=== PATIENT | male | born 1945 | race Caucasian/White ===

== ENCOUNTER 2019-08-17 11:01 | Outpatient (CLI) | payer MEDICARE, OTHER, SELFPAY ==
[2019-08-17 11:26] VITALS: BP 125/67; PULSE 62; RESP 18; TEMP 36.4; O2SAT 99
[2019-08-17 12:00] VITALS: BP 121/62; PULSE 64; RESP 18; O2SAT 98
== END 2019-08-17 12:00 | disposition home or self-care (01) ==
LOC: INF 11:01
PROVIDERS: Visit Provider Internal Medicine Gastroenterology
DX: D50.9 Iron deficiency anemia, unspecified (principal); T45.4X5A Adverse effect of iron and its compounds, initial encounter
CPT/HCPCS: 96365; J1439

== ENCOUNTER 2019-08-24 10:55 | Outpatient (CLI) | payer MEDICARE, OTHER, SELFPAY ==
[2019-08-24 11:06] VITALS: BP 141/68; PULSE 63; RESP 18; O2SAT 98
[2019-08-24 12:00] VITALS: BP 137/70; PULSE 65; RESP 18; O2SAT 98
== END 2019-08-24 12:00 | disposition home or self-care (01) ==
LOC: INF 10:55
PROVIDERS: Visit Provider Internal Medicine Gastroenterology
DX: D50.9 Iron deficiency anemia, unspecified (principal); T45.4X5A Adverse effect of iron and its compounds, initial encounter
CPT/HCPCS: 96365; J1439

== ENCOUNTER → 2021-02-18 13:06 | Outpatient (POV) | payer MEDICARE, OTHER, SELFPAY | PROVIDERS: Visit Provider Nurse Practitioner Family | DX: Z00.00 Encounter for general adult medical examination without abnormal findings (principal) ==

== ENCOUNTER → 2021-06-07 11:32 | Outpatient (CLI) | payer MEDICARE, OTHER, SELFPAY | PROVIDERS: Visit Provider Internal Medicine Gastroenterology | DX: Z01.812 Encounter for preprocedural laboratory examination (principal); Z20.822 Contact with and (suspected) exposure to COVID-19; Z12.11 Encounter for screening for malignant neoplasm of colon | CPT/HCPCS: U0003 ==

== ENCOUNTER 2021-06-10 08:00 | Day surgery (SDC) | payer MEDICARE, OTHER, SELFPAY ==
[2021-06-05 10:02] VITALS: BMI 25.5
[2021-06-10 08:26] VITALS: BP 144/70; PULSE 62; RESP 16; TEMP 36.8; O2SAT 100
[2021-06-10 08:39] LABS: POC Glucose,Bedside 140 (70-110)
--- NOTE | 2021-06-10 08:50 | HMH.ANESCL ---
[facility] Anesthesia Checklist - Patient Identification Patient Identification: Arm Band - Structural Data Admitted From: Home Planned Operative Procedure/s: Push enteroscopy Consent for Planned Operative Procedure(s) Verified: Yes - NPO Status Verified Time NPO: 00:00 - Additional verifications Anesthesia Reactions: No - Airway Assessment C-Spine Mobility Assessed: Yes TMJ Mobility Assessed: Yes Dentition: Good Dentition - Neurological Assessment Level of Consciousness: Awake Hx Seizures: No Numbness or tingling in extremities: No - Anesthesia Plan Anesthesia Risk discussed: Yes Anesthesia Plan: Verified ASA Class: III Anesthesia Type: MAC [facility] History I have reviewed the patient's past medical history: Yes Medical History: Reports:: Atherosclerotic Heart Disease, Diabetes Mellitus Type 2, Gastroesophageal Reflux Disease(GERD), Hyperlipidemia, Hypertension, Peripheral Artery Disease, Peripheral Vascular Disease, Transient Ischemic Attacks (TIA) Denies:: Cancer, Diabetes Mellitus Type 1, Internal Pacemaker, Lung Disease, MRSA, Seizures *Have you ever received a pneumonia vaccine?: Yes *Have you received a flu vaccine this season?: Yes Other Medical History: Reports: Anemia, Hypothyroidism Anesthesia experience/problems:: None Other Surgeries: Yes: Colonoscopy, Colon Resection (diverticulitis), Coronary Stent. No: Pacemaker Amputation: No Fractures: No - *Social History Last grade of school completed: High school graduate Smoking Status: Current every day smoker Tobacco Type: cigarettes # Packs/Day (cigarettes): 1 Alcohol Intake: current Alcohol Intake Frequency:: holidays/special occasions only Substance Use Type: denies use *Occupational Status:: retired Housing: house Household Members: spouse *Travel in the last 8 weeks: None Family Hx:: No significant family history
--- NOTE | 2021-06-10 08:56 | P.PCN_ITS ---
[facility] Procedure Note Procedure Note:: Push enteroscopy procedure Report: Push Enteroscopy with APC ablation/coagulation Endoscopost: Kamar Castillo II, MD Referring Physician: Christiano May MD Date of Procedure: June 10, 2021 Equipment: Olympus PCF 190 pediatric colonoscope Sedation: MAC sedation Indications: Mr. Bansal is a 75-year-old gentleman with some chronic iron deficiency anemia. The patient is on anticoagulation with Plavix after his TIA in March 2020. He also takes aspirin. The patient has had ablation of prior angiodysplasias in August 2018. At that time, he did receive parenteral iron infusion. The patient recently has had recurrence of his iron deficiency anemia. He is Hemoccult negative. His lab work on May 13, 2021 revealed hemoglobin 9.5 and hematocrit 29.4 with MCV of 72. His ferritin level was 12 with iron saturation of 4% and serum iron of 21. His TIBC was 472. The patient reports no melena or hematochezia. He does have some chronic constipation despite using MiraLAX plus Konsyl daily to twice daily. Procedure: Prior to the procedure, a history and physical exam was performed, and patient's medications and allergies were reviewed. The risks, benefits and alternatives of the sedation and procedure were discussed with the patient. All questions were answered and informed consent was obtained. The patient was brought to the procedure room. Patient identification and proposed procedure were verified by the physician and the nurse. The patient was placed in a left lateral decubitus position and the scope was passed under direct vision. Throughout the procedure, the patient's blood pressure, pulse, and oxygen saturations were monitored continuously. The upper push enteroscopy was accomplished without difficulty. The patient tolerated the procedure well. Findings: The scope was passed directly into the upper esophagus and advanced to the proximal/mid jejunum. Upon withdrawal, there were 3 small angiodysplasias of the post bulbar duodenum and 3 additional angiodysplasias of the duodenal bulb. These were all coagulated/ablated using the argon plasma access control officer. The scope was then withdrawn through a normal pylorus into the stomach. There was some mild chronic gastritis. Upon retroflexion, there was a 3 cm hiatal hernia. There were no Zhou's erosions or ulcerations. The scope was then withdrawn into the esophagus. There was no evidence of reflux esophagitis, Martini's or varices. The remainder of the esophageal mucosa was normal. Impression: 1. 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 I do feel that this is directly related to his use of aspirin and Plavix as well. I will discuss the findings with the patient and family. I will also discuss treatment options for his chronic constipation.
[2021-06-10 09:18] VITALS: BP 89/53; PULSE 56; RESP 12; TEMP 36.3; O2SAT 93
[2021-06-10 09:28] VITALS: BP 103/57; PULSE 51; RESP 12; O2SAT 95
[2021-06-10 09:38] VITALS: BP 108/64; PULSE 58; RESP 16; O2SAT 97
[2021-06-10 09:48] VITALS: PULSE 56; RESP 16; TEMP 36.3; O2SAT 96
[2021-06-10 15:12] VITALS: O2SAT 97
== END 2021-06-10 09:53 | disposition home or self-care (01) ==
LOC: OUTP 08:03
PROVIDERS: Visit Provider Internal Medicine Gastroenterology
PROC: (CPT 44360; principal; 2021-06-10 09:00)
DX: K31.819 Angiodysplasia of stomach and duodenum without bleeding (principal); K44.9 Diaphragmatic hernia without obstruction or gangrene; D50.9 Iron deficiency anemia, unspecified; Z79.01 Long term (current) use of anticoagulants; Z79.82 Long term (current) use of aspirin; Z86.73 Personal history of transient ischemic attack (TIA), and cerebral infarction without residual deficits; I25.10 Atherosclerotic heart disease of native coronary artery without angina pectoris; E11.9 Type 2 diabetes mellitus without complications; K21.9 Gastro-esophageal reflux disease without esophagitis; E78.5 Hyperlipidemia, unspecified; I10 Essential (primary) hypertension; I73.9 Peripheral vascular disease, unspecified
CPT/HCPCS: 44369; 82962; C2618

== ENCOUNTER 2021-06-12 10:25 | Outpatient (CLI) | payer MEDICARE, OTHER, SELFPAY ==
[2021-06-12 10:55] VITALS: BP 130/62; PULSE 63; RESP 18
[2021-06-12 11:10] VITALS: BP 139/72; PULSE 61; RESP 16
== END 2021-06-12 11:20 | disposition home or self-care (01) ==
LOC: INF 10:32
PROVIDERS: Visit Provider Internal Medicine Gastroenterology
DX: D64.9 Anemia, unspecified (principal)
CPT/HCPCS: 96374; Q0138

== ENCOUNTER 2021-06-18 10:27 | Outpatient (CLI) | payer MEDICARE, OTHER, SELFPAY ==
[2021-06-18 10:35] VITALS: BP 135/70; PULSE 62; RESP 20; TEMP 36.9; O2SAT 95
[2021-06-18 11:15] VITALS: BP 140/74; PULSE 68; RESP 20; TEMP 36.9; O2SAT 95
== END 2021-06-18 11:20 | disposition home or self-care (01) ==
LOC: INF 10:27
PROVIDERS: Visit Provider Internal Medicine Gastroenterology
DX: D50.9 Iron deficiency anemia, unspecified (principal)
CPT/HCPCS: 96365; Q0138

== ENCOUNTER → 2022-02-07 14:06 | Outpatient (CLI) | payer MEDICARE, OTHER, SELFPAY ==
[2022-02-07 14:27] LABS: Basophils # 0.1 K/mm3 (0-0.2); Basophils % 0.7 % (0.1-2.0); Eosinophils # 0.4 K/mm3 (0.0-0.4); Eosinophils % 3.5 % (0.1-12.0); Hematocrit 40.2 % (42.0-52.0); Hemoglobin 13.3 g/dL (14.1-18.0); Lymphocytes # 3.4 K/mm3 (0.7-4.5); Lymphocytes % 31.7 % (10-50); Mean Corpuscular Hemoglobin 30.8 pg (27.0-31.2); Mean Corpuscular Volume 93.2 fl (80-94); Mean Platelet Volume 7.7 fl (7.4-10.4); Monocytes % 9.8 % (1.7-9.3); Neutrophils # 5.8 K/mm3 (1.8-7.8); Neutrophils % 54.5 % (37.0-80.0); Platelet Count 349 K/mm3 (142-424); Red Blood Count 4.32 M/mm3 (4.60-6.20); Red Cell Distribution Width 13.8 % (11.5-17.5); White Blood Count 10.6 K/mm3 (4.8-10.8)
[2022-02-07 14:53] LABS: Iron 94 ug/dL (49-181)
[2022-02-07 15:02] LABS: Total Iron Binding Capacity 420 ug/dL (261-462)
[2022-02-07 15:29] LABS: Ferritin 70.2 ng/ml (17.9-464)
== END ==
PROVIDERS: Visit Provider Nurse Practitioner Family
DX: D50.9 Iron deficiency anemia, unspecified (principal); K58.9 Irritable bowel syndrome, unspecified
CPT/HCPCS: 36415; 82728; 83540; 83550; 85025

== ENCOUNTER → 2022-08-06 13:51 | Outpatient (CLI) | payer MEDICARE, OTHER, SELFPAY ==
[2022-08-06 14:40] LABS: Basophils # 0.1 K/mm3 (0-0.2); Basophils % 0.7 % (0.1-2.0); Eosinophils # 0.5 K/mm3 (0.0-0.4); Eosinophils % 4.6 % (0.1-12.0); Hematocrit 41.6 % (42.0-52.0); Hemoglobin 13.7 g/dL (14.1-18.0); Lymphocytes # 3.6 K/mm3 (0.7-4.5); Lymphocytes % 31.5 % (10-50); Mean Corpuscular Volume 90.8 fl (80-94); Mean Platelet Volume 7.6 fl (7.4-10.4); Monocytes # 1.2 K/mm3 (0.1-1.0); Monocytes % 10.7 % (1.7-9.3); Neutrophils % 52.4 % (37.0-80.0); Platelet Count 367 K/mm3 (142-424); Red Blood Count 4.58 M/mm3 (4.60-6.20); Red Cell Distribution Width 13.8 % (11.5-17.5); White Blood Count 11.4 K/mm3 (4.8-10.8)
[2022-08-06 16:56] LABS: Iron 119 ug/dL (49-181)
[2022-08-06 17:05] LABS: Total Iron Binding Capacity 423 ug/dL (261-462)
== END ==
PROVIDERS: PCP Family Medicine; Visit Provider Nurse Practitioner Family
DX: D50.9 Iron deficiency anemia, unspecified (principal); K58.9 Irritable bowel syndrome, unspecified
CPT/HCPCS: 36415; 82728; 83540; 83550; 85025

== ENCOUNTER → 2022-11-20 10:22 | Outpatient (CLI) | payer MEDICARE, OTHER, SELFPAY ==
[2022-11-20 10:47] LABS: Basophils # 0.1 K/mm3 (0-0.2); Basophils % 0.7 % (0.1-2.0); Eosinophils # 0.4 K/mm3 (0.0-0.4); Eosinophils % 4.1 % (0.1-12.0); Hematocrit 42.3 % (42.0-52.0); Hemoglobin 13.8 g/dL (14.1-18.0); Lymphocytes # 2.2 K/mm3 (0.7-4.5); Lymphocytes % 23.6 % (10-50); Mean Corpuscular HGB Conc 32.7 g/dL (31.8-35.4); Mean Corpuscular Hemoglobin 29.6 pg (27.0-31.2); Mean Corpuscular Volume 90.4 fl (80-94); Mean Platelet Volume 7.6 fl (7.4-10.4); Monocytes # 0.9 K/mm3 (0.1-1.0); Monocytes % 9.4 % (1.7-9.3); Neutrophils # 5.9 K/mm3 (1.8-7.8); Neutrophils % 62.3 % (37.0-80.0); Platelet Count 382 K/mm3 (142-424); Red Blood Count 4.68 M/mm3 (4.60-6.20); Red Cell Distribution Width 13.5 % (11.5-17.5); White Blood Count 9.4 K/mm3 (4.8-10.8)
[2022-11-20 12:01] LABS: Chloride 104 mmol/L (98-107); Potassium 3.5 mmoL/L (3.5-5.1); Sodium 140 mmol/L (136-145)
[2022-11-20 12:04] LABS: Anion Gap 13.5 mEq/L (5-15); Blood Urea Nitrogen 21 mg/dl (9-20); Carbon Dioxide 26 mmol/L (22.0-30.0); Estimated Glomerular Filt Rate 81 ml/min (>60); GFR (African American) 98 ML/MIN (>60)
[2022-11-20 12:05] LABS: Calcium 9.5 mg/dl (8.4-10.2); Glucose 130 mg/dl (74-100)
== END ==
PROVIDERS: PCP Physician Assistant Surgical; Visit Provider Surgery
DX: I10 Essential (primary) hypertension (principal); I70.1 Atherosclerosis of renal artery; F17.210 Nicotine dependence, cigarettes, uncomplicated
CPT/HCPCS: 36415; 80048; 80053; 85025

== ENCOUNTER → 2023-02-02 09:08 | Outpatient (CLI) | payer MEDICARE, OTHER, SELFPAY ==
[2023-02-02 09:56] LABS: Basophils # 0.1 K/mm3 (0-0.2); Basophils % 0.6 % (0.1-2.0); Eosinophils # 0.6 K/mm3 (0.0-0.4); Eosinophils % 4.3 % (0.1-12.0); Hematocrit 41.2 % (42.0-52.0); Hemoglobin 13.2 g/dL (14.1-18.0); Lymphocytes # 3.2 K/mm3 (0.7-4.5); Mean Corpuscular HGB Conc 31.9 g/dL (31.8-35.4); Mean Corpuscular Hemoglobin 29.3 pg (27.0-31.2); Mean Corpuscular Volume 91.7 fl (80-94); Mean Platelet Volume 7.3 fl (7.4-10.4); Monocytes # 1.1 K/mm3 (0.1-1.0); Neutrophils # 8.6 K/mm3 (1.8-7.8); Neutrophils % 63.1 % (37.0-80.0); Platelet Count 405 K/mm3 (142-424); White Blood Count 13.6 K/mm3 (4.8-10.8)
[2023-02-02 10:50] LABS: Iron 90 ug/dL (49-181)
[2023-02-02 10:56] LABS: 25-OH Vitamin D, Total 75.8 ng/mL (30-100)
[2023-02-02 11:00] LABS: Total Iron Binding Capacity 351 ug/dL (261-462)
[2023-02-02 11:27] LABS: Ferritin 51.6 ng/ml (17.9-464)
[2023-02-02 11:29] LABS: Vitamin B12 368 pg/mL (239-931)
== END ==
PROVIDERS: PCP Physician Assistant Surgical; Visit Provider Nurse Practitioner Family
DX: D64.9 Anemia, unspecified (principal)
CPT/HCPCS: 36415; 82306; 82607; 82728; 83540; 83550; 85025

== ENCOUNTER → 2023-08-05 13:40 | Outpatient (CLI) | payer MEDICARE, OTHER, SELFPAY ==
[2023-08-05 14:14] LABS: Basophils % 0.3 % (0.1-2.0); Eosinophils # 0.4 K/mm3 (0.0-0.4); Eosinophils % 3.3 % (0.1-12.0); Hematocrit 40.5 % (42.0-52.0); Hemoglobin 13.2 g/dL (14.1-18.0); Lymphocytes # 3.5 K/mm3 (0.7-4.5); Lymphocytes % 26.2 % (10-50); Mean Corpuscular HGB Conc 32.5 g/dL (31.8-35.4); Mean Corpuscular Volume 89.3 fl (80-94); Mean Platelet Volume 7.7 fl (7.4-10.4); Monocytes # 1.3 K/mm3 (0.1-1.0); Monocytes % 9.6 % (1.7-9.3); Neutrophils # 8.1 K/mm3 (1.8-7.8); Neutrophils % 60.6 % (37.0-80.0); Platelet Count 316 K/mm3 (142-424); Red Blood Count 4.54 M/mm3 (4.60-6.20); Red Cell Distribution Width 13.9 % (11.5-17.5); White Blood Count 13.3 K/mm3 (4.8-10.8)
[2023-08-05 15:37] LABS: 25-OH Vitamin D, Total 49.1 ng/mL (30-100)
[2023-08-05 16:08] LABS: Vitamin B12 269 pg/mL (239-931)
[2023-08-05 16:38] LABS: Iron 123 ug/dL (49-181)
[2023-08-05 16:48] LABS: Total Iron Binding Capacity 434 ug/dL (261-462)
[2023-08-05 17:16] LABS: Ferritin 42.9 ng/ml (17.9-464)
== END ==
PROVIDERS: PCP Family Medicine; Visit Provider Nurse Practitioner Family
DX: K58.9 Irritable bowel syndrome, unspecified (principal); D50.9 Iron deficiency anemia, unspecified; E55.9 Vitamin D deficiency, unspecified; E53.8 Deficiency of other specified B group vitamins
CPT/HCPCS: 36415; 82306; 82607; 82728; 83540; 83550; 85025

== ENCOUNTER 2024-09-22 13:47 | Outpatient (CLI) | payer MEDICARE, OTHER, SELFPAY ==
[2024-09-22 14:19] LABS: Basophils # 0.1 K/mm3 (0-0.2); Basophils % 0.7 % (0.1-2.0); Eosinophils # 0.7 K/mm3 (0.0-0.4); Hemoglobin 12.9 g/dL (14.1-18.0); Lymphocytes # 2.7 K/mm3 (0.7-4.5); Lymphocytes % 23.4 % (10-50); Mean Corpuscular HGB Conc 33.9 g/dL (31.8-35.4); Mean Corpuscular Hemoglobin 30.5 pg (27.0-31.2); Mean Corpuscular Volume 89.9 fl (80-94); Mean Platelet Volume 7.4 fl (7.4-10.4); Monocytes # 1.2 K/mm3 (0.1-1.0); Monocytes % 10.6 % (1.7-9.3); Neutrophils # 6.8 K/mm3 (1.8-7.8); Neutrophils % 59.4 % (37.0-80.0); Platelet Count 347 K/mm3 (142-424); Red Blood Count 4.23 M/mm3 (4.60-6.20); Red Cell Distribution Width 14.3 % (11.5-17.5); White Blood Count 11.5 K/mm3 (4.8-10.8)
[2024-09-22 14:37] LABS: Iron 77 ug/dL (49-181)
[2024-09-22 14:46] LABS: Total Iron Binding Capacity 405 ug/dL (261-462)
[2024-09-22 15:13] LABS: Ferritin 17.9 ng/ml (17.9-464)
[2024-09-22 15:35] LABS: 25-OH Vitamin D, Total 54.3 ng/mL (30-100)
[2024-09-22 16:09] LABS: Vitamin B12 259 pg/mL (239-931)
== END 2024-09-22 23:59 | disposition home or self-care (01) ==
LOC: LAB 13:49
PROVIDERS: PCP Physician Assistant Surgical; Visit Provider Nurse Practitioner Family
DX: D50.9 Iron deficiency anemia, unspecified (principal); E53.8 Deficiency of other specified B group vitamins; E55.9 Vitamin D deficiency, unspecified
CPT/HCPCS: 82306; 82607; 82728; 83540; 83550; 85025

== ENCOUNTER 2024-09-30 17:05 | Outpatient (CLI) | payer MEDICARE, OTHER, SELFPAY ==
--- OUTSIDE RECORDS SUMMARY | 2024-09-30 17:08 | XMS_ITS | Encounter Summary ---
Author Organization [employer] Address [address] [place] [address] Care Team Providers Care Conduit Installer Name Role Phone Stacy Moise Primary Care Provider [phone] Encounter Details Date Type Department Care Team (Late st Contact Info) Description 01/14/2022 Transcribed Document [facility] [place] [facility] [place] [address] ProviderMireya MD [address] [place] [address] [id number] Social History Tobacco Use Types Packs/Day Years Used Date Smoking Tobacco: Never Assessed Sex and Gender Information Value Date Recorded Sex Assigned at Not on file Legal Sex Male 5:25 PM CDT Gender Identity Not on file Sexual Orientation Not on file documented as of this encounter Miscellaneous Notes * Cerner Conversion Note - Mireya ProviderMD - 01/14/2022 10:07 AM CDT Final Discharge Planning Entered On: 01/14/2022 10:07 EDT Performed On: 01/14/2022 10:07 EDT by MALGORZATA ABURTO Mkt Flat Knitter Helper-Utilization Mgt Final Discharge Planning Discharge Arrangements : Patient Post-Acute Information Patient Name: SCOTTIE CURRAN Gender: Male : [birth year] Age: 76 Years No Post-Acute Placement(s) Listed No Post-Acute Service(s) Listed No Curaspan Referral(s) Listed Discharge To Care Management : Home/Residential/Skilled Nursing or Self Care -01 MALGORZATA ABURTO Mkt Flat Knitter Helper-Utilization Mgt - 01/14/2022 10:07 EDT Electronically signed by Juarez, [facility] Conversion Recreational Sports Director Cerner at 02/16/2023 3:49 PM CDT documented in this encounter Plan of Treatment Upcoming Encounters Date Type Department Care Team (Late st Contact Info) Description 03/10/2025 1:15 PM EDT Office Visit [facility] Cardiology - [place] [address] [place] [address] Tabby Mcallister PA-C [address] [facility] [address] [place] [address] documented as of this encounter Visit Diagnoses Not on filedocumented in this encounter Care Teams Conduit Installer Relationship Specialty Start Date End Date Stacy Moise PA PCP - General 03/02/23 documented as of this encounter
--- OUTSIDE RECORDS SUMMARY | 2024-09-30 17:08 | XMS_ITS | Encounter Summary ---
Author Organization [employer] Address [address] [facility] [place] [address] Care Team Providers Care Demand Manager Name Role Phone Stacy Moise Primary Care Provider [phone] Encounter Details Date Type Department Care Team (Late st Contact Info) Description 01/09/2022 Historic Encounter [facility] [address] [place] [address] ProviderJuan Historical Social History Tobacco Use Types Packs/Day Years Used Date Smoking Tobacco: Never Assessed Sex and Gender Information Value Date Recorded Sex Assigned at Not on file Legal Sex Male 5:25 PM CDT Gender Identity Not on file Sexual Orientation Not on file documented as of this encounter Plan of Treatment Upcoming Encounters Date Type Department Care Team (Late st Contact Info) Description 03/10/2025 1:15 PM EDT Office Visit [facility] Cardiology - [place] [address] [place] [address] Tabby Mcallister PA-C [address] [place] [address] [address] [place] [address] documented as of this encounter Procedures Procedure Name Priority Date/Time Associated Diagnosis Comments COMPLEMENT COMPONENT C3 Routine 01/09/2022 4:50 AM EST documented in this encounter Results * Complement Component C3 (01/09/2022 4:50 AM EST) C3 152 82 - 167 mg/dL 01/10/2022 12:14 PM EST Comment: Performed At: [facility] [address] [id number] Dorothy Ortega PhD Ph:[phone] Blood 01/09/2022 4:50 AM EST 01/09/2022 10:09 AM EST us Sleh Historical Provider LAB BLOOD ORDERABLES Fi nal Result [facility] [address] [phone] documented in this encounter Visit Diagnoses Not on filedocumented in this encounter Care Teams Demand Manager Relationship Specialty Start Date End Date Stacy Moise PA PCP - General 03/02/23 documented as of this encounter
--- OUTSIDE RECORDS SUMMARY | 2024-09-30 17:08 | XMS_ITS | Encounter Summary ---
Author Organization [employer] Address 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 (Primary Dx) Social History Tobacco Use Types Packs/Day Years Used Date Smoking Tobacco: Every Day Cigarettes Smokeless Tobacco: Never Alcohol Use Standard Drinks/Week Comments Not Currently 0 (1 standard drink = 0.6 oz pur e alcohol) caffeine use Housing Stability Answer Date Recorded Living situation today Not on file Living situation problems Not on file 2023 Sex and Gender Information Value Date Recorded Sex Assigned at Not on file Legal Sex Male 5:25 PM CDT Gender Identity Not on file Sexual Orientation Not on file documented as of this encounter Plan of Treatment Upcoming Encounters Date Type Department Care Team (Late st Contact Info) Description 03/10/2025 1:15 PM EDT Office Visit [facility] Cardiology - [place] [address] [place] [address] Tabby Mcallister PA-C [address] [facility] [address] [place] [address] documented as of this encounter Visit Diagnoses Diagnosis 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
--- OUTSIDE RECORDS SUMMARY | 2024-09-30 17:08 | XMS_ITS | Encounter Summary ---
Author Organization [employer] Address [address] [place] [address] Care Team Providers Care Coffee Grower Name Role Phone Stacy Moise Primary Care Provider [phone] Encounter Details Date Type Department Care Team (Late st Contact Info) Description 01/09/2022 Historic Encounter [facility] [address] [place] [address] ProviderJuan Historical Social History Tobacco [...] Description 03/10/2025 1:15 PM EDT Office Visit [facility] Cardiology - [place] [address] [place] [address] Tabby Mcallister PA-C [address] [place] [address] [address] [place] [address] documented as of this encounter Procedures Procedure Name Priority Date/Time Associated Diagnosis Comments GLUCOSE-POC Routine 01/09/2022 10:54 AM EST documented in this encounter Results * (ABNORMAL) Glucose, Point of Care (01/09/2022 10:54 AM EST) Glucose POC2 132(H) 70 - 110 mg/dL 01/09/2022 3:54 PM EST [facility] Skill Labor [phone] 01/09/2022 3:54 PM EST [facility] Device SN [id number] 01/09/2022 3:54 PM EST [facility] Device Comment1 Notified Nurse RBV 01/09/2022 3:54 PM EST [facility] Blood 01/09/2022 10:5 4 AM EST 01/09/2022 3:55 PM EST [facility] Historical Provider POINT OF CARE TEST ORDE LORRAINE Final Result [facility] [address] [phone] documented in this encounter Visit Diagnoses Not on filedocumented in this encounter Care Teams Coffee Grower Relationship Specialty Start Date End Date Stacy Moise PA PCP - General 03/02/23 documented as of this encounter
--- OUTSIDE RECORDS SUMMARY | 2024-09-30 17:08 | XMS_ITS | Encounter Summary ---
Author Organization [employer] Address [address] [facility] [place] [address] Care Team Providers Care Manager Of Clinical Name Role Phone Stacy Moise Primary Care Provider [phone] Encounter Details Date Type Department Care Team (Late st Contact Info) Description 01/09/2022 Historic Encounter [facility] [address] [place] [address] ProviderJuan Historical Social History Tobacco [...] Description 03/10/2025 1:15 PM EDT Office Visit [facility] Cardiology - [place] [address] [place] [address] Tabby Mcallister PA-C [address] [place] [address] [address] [place] [address] documented as of this encounter Procedures Procedure Name Priority Date/Time Associated Diagnosis Comments COMPLEMENT COMPONENT C4 Routine 01/09/2022 4:50 AM EST documented in this encounter Results * (ABNORMAL) Complement Component C4 (01/09/2022 4:50 AM EST) C4 40(H) 12 - 38 mg/dL 01/10/2022 12:14 PM EST Comment: Performed At: [facility] [address] [id number] Dorothy Ortega PhD Ph:[phone] Blood 01/09/2022 4:50 AM EST 01/09/2022 10:09 AM EST Sle Historical Provider LAB BLOOD ORDERABLES Fi nal Result Performing Organization Address City/State/[facility] Co de Phone Number [facility] [address] [place] [address] documented in this encounter Visit Diagnoses Not on filedocumented in this encounter Care Teams Manager Of Clinical Relationship Specialty Start Date End Date Stacy Moise PA PCP - General 03/02/23 documented as of this encounter
--- OUTSIDE RECORDS SUMMARY | 2024-09-30 17:08 | XMS_ITS | Encounter Summary ---
Author Organization [employer] Address [address] [facility] [place] [address] Care Team Providers Care Director Of Occupational Therapy Name Role Phone Stacy Moise Primary Care Provider [phone] Encounter Details Date Type Department Care Team (Late st Contact Info) Description 07/13/[address] [address] Tabby Mcallister PA-C [address] [place] [address] Hypertension (Primary Dx) Social History Tobacco Use Types [...] Description 03/10/2025 1:15 PM EDT Office Visit [address] [address] Tabby Mcallister PA-C [address] [place] [address] documented as of this encounter Visit Diagnoses Diagnosis Hypertension- Primary Unspecified essential hypertension documented in this encounter Care Teams Director Of Occupational Therapy Relationship Specialty Start Date End Date Stacy Moise PA PCP - General 03/02/23 documented as of this encounter
--- OUTSIDE RECORDS SUMMARY | 2024-09-30 17:08 | XMS_ITS | Encounter Summary ---
Author Organization [employer] Address [address] [facility] [place] [address] Care Team Providers Care Biodiesel Plant Manager Name Role Phone Stacy Moise Primary Care Provider [phone] Reason for Visit * Reason Comments Medication Refill Encounter Details Date Type Department Care Team (Late Contact Info) Description 05/23/[address] [address] Tabby Mcallister PA-C [address] [address] Social History Tobacco Use Types Packs/Day Years [...] Description 03/10/2025 1:15 PM EDT Office Visit [facility] [address] [place] [address] Tabby Mcallister PA-C [facility] [address] [address] documented as of this encounter Visit Diagnoses Not on filedocumented in this encounter Care Teams Biodiesel Plant Manager Relationship Specialty Start Date End Date Stacy Moise PA PCP - General 03/02/23 documented as of this encounter
--- OUTSIDE RECORDS SUMMARY | 2024-09-30 17:08 | XMS_ITS | Encounter Summary ---
Author Organization [employer] Address [address] [place] [address] Care Team Providers Care Gastroenterology Manager Name Role Phone Stacy Moise Primary Care Provider [phone] Encounter Details Date Type Department Care Team (Late st Contact Info) Description 09/18/[address] [facility] Scheduling [address] [place] [address] Stcay Moise PA [address] [place] [address] Bilateral breast lump (Primary Dx) Social History Tobacco Use Types Packs/Day Years Used Date Smoking Tobacco: Every Day Cigarettes Smokeless Tobacco: Never Alcohol Use Standard Drinks/Week Comments Not Currently 0 (1 standard drink = 0.6 oz pur e alcohol) caffeine use Sex and Gender Information Value Date Recorded Sex Assigned at Not on file Legal Sex Male 5:25 PM CDT Gender Identity Not on file Sexual Orientation Not on file documented as of this encounter Plan of Treatment Upcoming Encounters Date Type Department Care Team (Late st Contact Info) Description 03/10/2025 1:15 PM EDT Office Visit [facility] Cardiology - [place] [address] [place] [address] Tabby Mcallister PA-C [address] [place] [address] [address] [place] [address] documented as of this encounter Visit Diagnoses Diagnosis Bilateral breast lump- Primary documented in this encounter Care Teams Gastroenterology Manager Relationship Specialty Start Date End Date Stacy Moise PA PCP - General 03/02/23 documented as of this encounter
--- OUTSIDE RECORDS SUMMARY | 2024-09-30 17:08 | XMS_ITS | Encounter Summary ---
Author Organization [employer] Address [address] [place] [address] Care Team Providers Care Automatic Washer Mechanic Name Role Phone Stacy Moise Primary Care Provider [phone] Encounter Details Date Type Department Care Team (Late st Contact Info) Description 01/09/2022 Transcribed Document [facility] [place] [address] ProviderMireya MD [address] [place] [phone] Social History Tobacco Use Types Packs/Day Years Used Date Smoking Tobacco: Never Assessed Sex and Gender Information Value Date Recorded Sex Assigned at Not on file Legal Sex Male 5:25 PM CDT Gender Identity Not on file Sexual Orientation Not on file documented as of this encounter Miscellaneous Notes * Cerner Conversion Note - Mireya Osuna MD - 01/09/2022 2:48 PM LARRY OPERATOR Patient: SCOTTIE CURRAN Age: 76 Years Sex: Male : 1945 Patient is apparently being discharged today. He no longer has vomiting or abdominal pain. Reports minimal diarrhea. No stool studies were collected while in the hospital. Ileitis is a very common occurrence with infectious diarrhea. Patient can have outpatient stool studies and repeat CT A/P in 1-2 months to evaluate resolution. He and his voice they would like to see Dr. Castillo if any endoscopy is needed. Patient's PCP can order CT A/P and stool studies. No indication for inpatient endoscopy at this time. Free Text Note above was performed by Francesca Plasencia PA-C and discussed with Dr. Almazan. Thank you for this consultation! documented in this encounter Plan of Treatment Upcoming Encounters Date Type Department Care Team (Late st Contact Info) Description 03/10/2025 1:15 PM EDT Office Visit [facility] Cardiology - [place] [address] [place] [address] Tabby Mcallister PA-C 227 [facility] [address] [place] [address] documented as of this encounter Visit Diagnoses Not on filedocumented in this encounter Care Teams Automatic Washer Mechanic Relationship Specialty Start Date End Date Stacy Moise PA PCP - General 03/02/23 documented as of this encounter
--- OUTSIDE RECORDS SUMMARY | 2024-09-30 17:08 | XMS_ITS | Encounter Summary ---
Author Organization [employer] Address [address] [facility] [place] [address] Care Team Providers Care Logistics Center Manager Name Role Phone Stacy Moise Primary Care Provider [phone] Reason for Visit * Reason Onset Date Comments Medication Management 11/25/2023 Please ref ill gemfibrozil for this patient. [facility] 90 days. Thank you Encounter Details Date Type Department Care Team (Late st Contact Info) Description 11/25/2023 Telephone [facility] Cardiology - [place] [address] [place] [address] Tabby Mcallister PA-C [address] [address] Medication Management (Please refill gemfibrozil for this patient. [facility] 90 days. Thank you) Social History Tobacco Use Types Packs/Day Years [...] as of this encounter Miscellaneous Notes * Telephone Encounter - Maday R Rosita - 11/25/2023 12:04 PM EST Please refill gemfibrozil for this patient. [facility] 90 days. Thank you RAL RESOURCES SPECIALIST documented in this encounter Plan of Treatment Upcoming Encounters Date Type Department Care Team (Late st Contact Info) Description 03/10/2025 1:15 PM EDT Office Visit [facility] Cardiology - [place] [address] [place] [address] Tabby Mcallister PA-C 227 [facility] [address] [place] [address] documented as of this encounter Visit Diagnoses Not on filedocumented in this encounter Care Teams Logistics Center Manager Relationship Specialty Start Date End Date Stacy Moise PA PCP - General 03/02/23 documented as of this encounter
--- OUTSIDE RECORDS SUMMARY | 2024-09-30 17:08 | XMS_ITS | Encounter Summary ---
Author Organization [facility] [employer] Address [address] [place] [address] Care Team Providers Care Cell Lead Name Role Phone Stacy Moise Primary Care Provider [phone] Encounter Details Date Type Department Care Team (Late st Contact Info) Description 01/09/2022 Historic Encounter [facility] [address] [place] [address] ProviderJuan Historical Social History Tobacco [...] Description 03/10/2025 1:15 PM EDT Office Visit [facility] Cardiology - [address] [address] Tabby Mcallister PA-C [address] [place] [address] [address] [place] [address] documented as of this encounter Procedures Procedure Name Priority Date/Time Associated Diagnosis Comments ANCA IFA SCREEN (REFLEXIVE), SENDOUT ([facility] BKR DATA CONV) Routine 01/09/2022 4:50 AM EST documented in this encounter Results * ANCA IFA SCREEN (REFLEXIVE), SENDOUT ([facility] BKR DATA CONV) (01/09/2022 4:50 AM EST) Pathologist [facility] Cytoplasmic (C-ANCA) <1:20 Neg:<1:20 01/10/2022 10:09 PM EST Perinuclear (P-ANCA) <1:20 Neg:<1:20 01/10/2022 10:09 PM EST Comment: The presence of positive fluorescence exhibiting P-ANCA or C-ANCA patterns alone is not specific for the diagnosis of Alanna's Granulomatosis (WG) or microscopic polyangiitis. Decisions about treatment should not be based solely on ANCA IFA results. ??The International ANCA Group Consensus recommends follow up testing of positive sera with both MD- 3 and MPO-ANCA enzyme immunoassays. As many as 5% serum samples are positive only by EIA. Ref. AM J Clin Pathol 1999;111:507-513. Atypical pANCA <1:20 Neg:<1:20 01/10/2022 10:09 PM EST Comment: The atypical pANCA pattern has been observed in a significant percentage of patients with ulcerative colitis, primary sclerosing cholangitis and autoimmune hepatitis. Performed At: [facility] [id number] Dorothy Ortega PhD Ph:[phone] Blood 01/09/2022 4:50 AM EST 01/09/2022 10:09 AM EST [facility] Historical Provider LAB BLOOD ORDERABLES Fi nal Result [facility] [address] [phone] documented in this encounter Visit Diagnoses Not on filedocumented in this encounter Care Teams Cell Lead Relationship Specialty Start Date End Date Stacy Moise PA PCP - General 03/02/23 documented as of this encounter
--- OUTSIDE RECORDS SUMMARY | 2024-09-30 17:08 | XMS_ITS | Encounter Summary ---
Author Organization [employer] Address [address] [facility] [facility] [place] [address] Care Team Providers Care Natural Resource Officer Name Role Phone Stacy Moise Primary Care Provider [phone] Encounter Details Date Type Department Care Team (Late st Contact Info) Description 01/09/2022 Transcribed Document [facility] Family Medicine [facility] [address] ProviderMireya MD [address] [place] [id number] Social History Tobacco Use Types Packs/Day Years Used Date Smoking Tobacco: Never Assessed Sex and Gender Information Value Date Recorded Sex Assigned at Not on file Legal Sex Male 5:25 PM CDT Gender Identity Not on file Sexual Orientation Not on file documented as of this encounter Miscellaneous Notes * Cerner Conversion Note - Mireya Osuna MD - 01/09/2022 4:46 PM WOODWORKER Patient: SCOTTIE CURRAN Age: 76 Years Sex: Male : 1945 Subjective Seen and examined at bedside. No complains. Vital Signs T: 36.7 ??C TMIN: 36.6 ??C TMAX: 36.7 ??C HR: 70(Monitored) RR: 18 BP: 146/81 SpO2: 96% Oxygen Settings (Last) Oxygen Therapy Mode: Room air (01/09/22 05:48:00) Intake & Output Totals Last 24 Hours (7a-7a) Input Total: 1200 mL Output Total: 900 mL Balance: 300 mL Physical Exam General: Appears well, alert Neck: Supple, - JVD Resp: Clear to auscultate b/l, no wheeze, no rhonchi CVS: S1, S2, RRR, no rubs or gallop rhythm, no murmur GI: Soft, non tender, BS+ Ext: - edema b/l Neuro: AAX3, non focal findings, no tremors Skin: - Rash Assessment/Plan Acute renal failure Nausea, Vomiting and diarrhea. Hx Nephrolithiasis and renal artery stenosis s/p stent Hyponatremia / hypokalemia Hypertension Diabetes Dyslipidemia CAD s/p stents PVD Plan: - Acute renal failure - History suggestive of dehydration / poor oral intake as the cause of MONIQUE +/- Not sure if there was component of hypotension + he was also on losartan. - Cr on admission 3.7 > improved to 2.4 after hydration > now 1.4 mg/dl - Hyponatremia and hypokalemia - correcting appropriately with hydration. - Serologies pending; Renal artery Doppler negative - likely MONIQUE is pre-renal in etiology. - IF pt going home today; we will follow up him in clinic in 1 week. - Encourage oral hydration. - Strict I/O - Avoid nephrotoxins - Agree with holding ACEI for now. VTE Prophylaxis - Medical Clopidogrel 75 mg, Oral, Tab, Daily, Routine, Start 01/08/22 9:00:00 EST, 01/08/22 6:17:00 EST (LIA SANTOYO MD-INT) Heparin 5,000 Units, SubCutaneous, Inj, Q12H, Routine, Start 01/08/22 9:00:00 EST, 01/08/22 6:20:00 EST (LIA SANTOYO MD-INT) Sequential Compression Device Start: 01/08/22 5:50:00 EST, Bilateral, Continuous Order (LIA SANTOYO MD-INT) Medications atorvastatin, 40 mg= 1 Tab, Oral, Daily Bystolic, 10 mg= 1 Tab, Oral, Daily Colace, 100 mg= 1 Cap, Oral, BID, PRN Dextrose 50% injection, 25 Gram= 50 mL, IV Push, Q15Min, PRN Dextrose 50% injection, 25 Gram= 50 mL, IV Push, Q15Min, PRN Dextrose 50% injection, 25 Gram= 50 mL, IV Push, Q15Min, PRN Dextrose 50% injection, 12.5 Gram= 25 mL, IV Push, Q15Min, PRN glucagon, 1 mg= 1 mL, IntraMuscular, Q15Min, PRN glucose 4 g oral tablet, chewable, 16 Gram= 4 Tab, Chew, Q15Min, PRN glucose 40% oral gel, 15 Gram= 37.5 mL, Oral, Q15Min, PRN heparin, 5000 Units= 1 mL, SubCutaneous, Q12H Imdur, 60 mg= 1 Tab, Oral, QAM insulin lispro sliding scale, Scale A:, SubCutaneous, AC and at Bedtime levothyroxine, 25 mcg= 1 Tab, Oral, Daily Lopid, 600 mg= 1 Tab, Oral, BIDAC loratadine, 10 mg= 1 Tab, Oral, Daily, PRN Milk of Magnesia 8% oral suspension, 30 mL, Oral, Daily, PRN Norvasc, 10 mg= 1 Tab, Oral, Daily Plavix, 75 mg= 1 Tab, Oral, Daily Proscar, 5 mg= 1 Tab, Oral, Daily Protonix, 40 mg= 1 Tab, Oral, Daily simethicone, 160 mg= 2 Tab, Oral, At Bedtime simethicone, 160 mg= 2 Tab, Oral, 1-Time Sodium Chloride 0.9% with KCl 20 mEq/L 1,000 mL, 1000 mL, IntraVENous Zofran, 4 mg= 2 mL, IV Push, Q4H, PRN Lab Results Test Name Test Result Date/Time Sodium Level 139 mmol/L 01/09/2022 04:50 EST Potassium Level 3.2 mmol/L (Low) 01/09/2022 04:50 EST Chloride Level 107 mmol/L 01/09/2022 04:50 EST Carbon Dioxide Level 23 mmol/L 01/09/2022 04:50 EST Anion Gap 12 01/09/2022 04:50 EST Glucose Level 121 mg/dL (High) 01/09/2022 04:50 EST Blood Urea Nitrogen 75 mg/dL (High) 01/09/2022 04:50 EST Creatinine Level 1.40 mg/dL (High) 01/09/2022 04:50 EST eGFR 59 mL/min/1.73m2 (Low) 01/09/2022 04:50 EST eGFR NonAfrican 49 mL/min/1.73m2 (Low) 01/09/2022 04:50 EST Bun/Creatinine 53.6 (High) 01/09/2022 04:50 EST Calcium Level 7.7 mg/dL (Low) 01/09/2022 04:50 EST Device Comment 1 Notified Nurse RBV 01/09/2022 10:54 EST Device Comment 1 Notified Nurse RBV 01/09/2022 05:52 EST Device Comment 1 Notified Nurse RBV 01/08/2022 19:35 EST Device Comment 1 Notified MD RBV 01/08/2022 17:03 EST Glucose POC2 132 mg/dL (High) 01/09/2022 10:54 EST Glucose POC2 123 mg/dL (High) 01/09/2022 05:52 EST Glucose POC2 126 mg/dL (High) 01/08/2022 19:35 EST Glucose POC2 130 mg/dL (High) 01/08/2022 17:03 EST WBC 9.8 K/uL (High) 01/09/2022 04:50 EST RBC 4.77 Million/uL 01/09/2022 04:50 EST Hgb 14.9 g/dL 01/09/2022 04:50 EST Hct 42.4 % 01/09/2022 04:50 EST MCV 88.9 fL 01/09/2022 04:50 EST MCH 31.2 pg 01/09/2022 04:50 EST MCHC 35.1 Gram/dL 01/09/2022 04:50 EST Platelet Count 283 K/uL 01/09/2022 04:50 EST MPV 10.3 fL 01/09/2022 04:50 EST RDW 12.6 % 01/09/2022 04:50 EST Neutrophil Percent Man 52 % 01/09/2022 04:50 EST Band Percent Man 8 % 01/09/2022 04:50 EST ANC # 6 K/uL 01/09/2022 04:50 EST Lymph Percent Man 20 % (Low) 01/09/2022 04:50 EST ALYC # 2 K/uL 01/09/2022 04:50 EST [place] Percent Man 18 % (High) 01/09/2022 04:50 EST Eos Percent Man 1 % 01/09/2022 04:50 EST Baso Percent Man 1 % 01/09/2022 04:50 EST RBC Morphology Normal 01/09/2022 04:[address] Estimate Adequate 01/09/2022 04:50 EST Slide Review Add Diff 01/09/2022 04:50 EST Electronically signed by [facility], [facility] Conversion Assistant Counsel Cerner at 02/16/2023 4:09 PM CDT documented in this encounter Plan of Treatment Upcoming Encounters Date Type Department Care Team (Late st Contact Info) Description 03/10/2025 1:15 PM EDT Office Visit [facility] Cardiology - [place] [address] [place] [address] Tabby Mcallister PA-C [address] [facility] [address] [place] [address] documented as of this encounter Visit Diagnoses Not on filedocumented in this encounter Care Teams Natural Resource Officer Relationship Specialty Start Date End Date Stacy Moise PA PCP - General 03/02/23 documented as of this encounter
--- OUTSIDE RECORDS SUMMARY | 2024-09-30 17:08 | XMS_ITS | Encounter Summary ---
Author Organization [employer] Address [address] [place] [address] Care Team Providers Care Material Control Supervisor Name Role Phone Stacy Moise Primary Care Provider [phone] Encounter Details Date Type Department Care Team (Late st Contact Info) Description 01/09/2022 Transcribed Document [facility] Radiology [address] [place] [address] Girish Sanchez MD [address] [place] [address] [address] [place] [address] Social History Tobacco Use Types Packs/Day Years Used Date Smoking Tobacco: Never Assessed Sex and Gender Information Value Date Recorded Sex Assigned at Not on file Legal Sex Male 5:25 PM CDT Gender Identity Not on file Sexual Orientation Not on file documented as of this encounter Miscellaneous Notes * Cerner Conversion Note - Girish Sanchez MD - 01/09/2022 12:44 PM EST Patient: SCOTTIE CURRAN Age: 76 years Sex: Male : 1945 Associated Diagnoses: None Author: GIRISH SANCHEZ MD-INT Subjective PCP: Dr. May, [facility] DOA: 01/08/2022 DOD: HPI: 76-year-old gentleman with recent history of viral gastroenteritis. Found to have acute kidney failure and admitted for the same reason. CODE STATUS: Full code CONSULTS: [facility] FOLLOWUP: 01/08/2022 Patient seen and examined today. Chart and H&P reviewed. Workup noted. Medications reviewed. Patient is resting in bed, patient denies any new diarrhea or nausea. Patient is hemodynamically stable. He is afebrile. 01/09/2022 Patient is awake and alert. Resting in bed, looks comfortable. Hemodynamically stable. Afebrile. No more vomiting nausea or diarrhea. Renal functions are also improving slowly. Health Status Allergies: Allergic Reactions (Selected) No Known Medication Allergies Current medications: (Selected) Inpatient Medications Ordered Bystolic: 10 mg, Oral, Daily Colace: 100 mg, Oral, BID, PRN: Constipation Dextrose 50% injection: 12.5 Gram, IV Push, Q15Min, PRN: Other (See Comment) Dextrose 50% injection: 25 Gram, IV Push, Q15Min, PRN: Other (See Comment) Dextrose 50% injection: 25 Gram, IV Push, Q15Min, PRN: Other (See Comment) Dextrose 50% injection: 25 Gram, IV Push, Q15Min, PRN: Other (See Comment) Imdur: 60 mg, Oral, QAM Lopid: 600 mg, Oral, BIDAC Milk of Magnesia 8% oral suspension: 30 mL, Oral, Daily, PRN: Constipation Norvasc: 10 mg, Oral, Daily Plavix: 75 mg, Oral, Daily Proscar: 5 mg, Oral, Daily Protonix: 40 mg, Oral, Daily Sodium Chloride 0.9% with KCl 20 mEq/L 1,000 mL: 75 mL/Hr, IntraVENous Zofran: 4 mg, IV Push, Q4H, PRN: Nausea atorvastatin: 40 mg, Oral, Daily glucagon: 1 mg, IntraMuscular, Q15Min, PRN: Other (See Comment) glucose 4 g oral tablet, chewable: 16 Gram, 4 Tab, Chew, Q15Min, PRN: Other (See Comment) glucose 40% oral gel: 15 Gram, 37.5 mL, Oral, Q15Min, PRN: Other (See Comment) heparin: 5,000 Units, SubCutaneous, Q12H insulin lispro sliding scale: Scale A:, SubCutaneous, AC and at Bedtime levothyroxine: 25 mcg, Oral, Daily loratadine: 10 mg, Oral, Daily, PRN: Allergies simethicone: 160 mg, Oral, 1-Time simethicone: 160 mg, Oral, At Bedtime Documented Medications Documented Bystolic 10 mg oral tablet: 1 Tab, Oral, Daily, 0 Refill(s) Januvia 100 mg oral tablet: 1 Tab, Oral, Daily, 30 Tab, 0 Refill(s) Lopid 600 mg oral tablet: 1 Tab, Oral, BID, 0 Refill(s) NexIUM 24HR 20 mg oral delayed release capsule: 1 Cap, Oral, Daily, 0 Refill(s) Norvasc 10 mg oral tablet: 1 Tab, Oral, Daily, 0 Refill(s) Plavix 75 mg oral tablet: 1 Tab, Oral, Daily, 0 Refill(s) ZyrTEC 10 mg oral tablet: 1 Tab, Oral, Daily, 0 Refill(s) aspirin 81 mg oral delayed release tablet: 1 Tab, Oral, Daily, 30 Tab, 0 Refill(s) atorvastatin 40 mg oral tablet: 1 Tab, Oral, At Bedtime, 0 Refill(s) clonidine 0.1 mg oral tablet: 1 Tab, Oral, TID, take for systolic blood pressure greater than 160, PRN: Hypertension, 0 Refill(s) cyanocobalamin 1000 mcg/mL injectable solution: 1 mL, IntraMuscular, qMonth, 10 mL, 0 Refill(s) finasteride 5 mg oral tablet: 1 Tab, Oral, Daily, 0 Refill(s) furosemide 20 mg oral tablet: 1 Tab, Oral, Daily, 0 Refill(s) gabapentin 100 mg oral capsule: 2 Cap, Oral, QID, takes at 8am, 11am, 2pm, 5pm, 0 Refill(s) gabapentin 100 mg oral capsule: 4 Cap, Oral, At Bedtime, may take 4-5 capsules as directed, 0 Refill(s) isosorbide mononitrate 60 mg oral tablet, extended release: 1 Tab, Oral, QAM, 0 Refill(s) levothyroxine 25 mcg (0.025 mg) oral tablet: 1 Tab, Oral, Daily, 0 Refill(s) losartan 100 mg oral tablet: 1 Tab, Oral, Daily, 0 Refill(s) potassium chloride 20 mEq oral tablet, extended release: 1 Tab, Oral, Daily, 0 Refill(s), Home Medications (19) Active aspirin 81 mg oral delayed release tablet 81 mg = 1 Tab, Oral, Daily atorvastatin 40 mg oral tablet 40 mg = 1 Tab, Oral, At Bedtime Bystolic 10 mg oral tablet 10 mg = 1 Tab, Oral, Daily clonidine 0.1 mg oral tablet 0.1 mg = 1 Tab, PRN, Oral, TID cyanocobalamin 1000 mcg/mL injectable solution 1,000 mcg = 1 mL, IntraMuscular, qMonth finasteride 5 mg oral tablet 5 mg = 1 Tab, Oral, Daily furosemide 20 mg oral tablet 20 mg = 1 Tab, Oral, Daily gabapentin 100 mg oral capsule 200 mg = 2 Cap, Oral, QID gabapentin 100 mg oral capsule 400 mg = 4 Cap, Oral, At Bedtime isosorbide mononitrate 60 mg oral tablet, extended release 60 mg = 1 Tab, Oral, QAM Januvia 100 mg oral tablet 100 mg = 1 Tab, Oral, Daily levothyroxine 25 mcg (0.025 mg) oral tablet 25 mcg = 1 Tab, Oral, Daily Lopid 600 mg oral tablet 600 mg = 1 Tab, Oral, BID losartan 100 mg oral tablet 100 mg = 1 Tab, Oral, Daily NexIUM 24HR 20 mg oral delayed release capsule 20 mg = 1 Cap, Oral, Daily Norvasc 10 mg oral tablet 10 mg = 1 Tab, Oral, Daily Plavix 75 mg oral tablet 75 mg = 1 Tab, Oral, Daily potassium chloride 20 mEq oral tablet, extended release 20 mEq = 1 Tab, Oral, Daily ZyrTEC 10 mg oral tablet 10 mg = 1 Tab, Oral, Daily Problem list: Active Problems (26) Acquired hypothyroidism Anemia (hx of) Angina (hx of, Last had in 2017) Aortic valve disease Arthritis At risk for sleep apnea Back pain CAD (coronary artery disease) Cervical spinal stenosis Claudication Colorectal surgery Diabetes Disorder of prostate Diverticulitis///HX Dizzy spells (occasional) Fatty liver GERD - Gastro-esophageal reflux disease Hard of hearing Has been smoking for 30 years High cholesterol HTN (hypertension) Murmur Peripheral vascular disease Prostatitis///12/2018 Renal calculus///HX Stented coronary artery Objective VS/Measurements Vitals Signs (last 24 hrs) Last Charted Minimum Maximum Temp 98 (JAN 09 05:48) 97.8 (JAN 08 17:11) 98.1 (JAN 08:42) Mon HR 70 (JAN 09 10:49) 62 (JAN 09 02:05) 70 (JAN 09 10:49) Resp Rate 18 (JAN 09 05:48) 16 (JAN 08:11) 18 (JAN 09 02:05) SBP H 146 (JAN 09 10:49) 131 (JAN 08 20:42) H 146 (JAN 09 10:49) DBP 81 (JAN 09 10:49) 67 (JAN 09 02:05) 81 (JAN 09 10:49) MAP 102 (JAN 09 10:49) 80 (JAN 09 02:05) 102 (JAN 09 10:49) SpO2 96 (JAN 08:42) L 92 (JAN 08:) 96 (JAN 08:42) General: Alert and oriented, No acute distress. Eye: Pupils are equal, round and reactive to light, Normal conjunctiva. Respiratory: Lungs are clear to auscultation, Respirations are non-labored. Cardiovascular: Normal rate, Regular rhythm. Gastrointestinal: Soft, Non-tender, Normal bowel sounds. Musculoskeletal: Normal range of motion. Integumentary: Warm. Neurologic: Alert, Oriented, No focal deficits. Psychiatric: Cooperative. Results Review Radiology Results (Last 48 hours) [id number] -- 01/08/2022 00:21 US Renal Comp (01/08/2022 08:45) Result: RENAL ULTRASOUNDHISTORY: Renal failure.PROCEDURE: Ultrasound images of the kidneys were obtained.FINDINGS: Limited images of the liver parenchyma demonstrate normal echogenicity. The right kidney measures 11.7 x 4.8 x 4.7 cm and demonstrates a renalvolume of 139 mL. There is increased echogenicity and mild renalcortical thinning. There is no hydronephrosis. There is a midpole 2.7 cmsimple cyst.The left kidney measures 12.7 x 6.2 x 5.2 cm and a renal volume of 213mL. It is normal echogenicity. There is no hydronephrosis. There is aposterior lower pole 3 cm simple cyst.IMPRESSION: Evidence of medical renal disease.No hydronephrosis.Bilateral renal simple cysts.Images reviewed, interpreted, and dictated by Dr. Arnaud Urrutia.Transcribed by Buck Pace (R).I have personally viewed, interpreted and dictated the examination. Ihflako read and agree with the above final transcribed report. CT Abdomen Pelvis WO (01/08/2022 08:55) Result: CT SCAN OF THE ABDOMEN AND PELVIS WITHOUT CONTRAST 01/08/2022 6:01 AM HISTORY: Generalized abdominal pain. Nephrolithiasis.COMPARISON: March 24, 2017.PROCEDURE: Axial images were obtained from the lung bases to the pubicsymphysis by computed tomography. This study was performed withtechniques to keep radiation doses as low as reasonably achievable,(ALARA). Individualized dose reduction techniques using automatedexposure control or adjustment of mA and/or kV according to the patientsize were employed.FINDINGS: ABDOMEN: There are tiny nodules identified in the lung bases which arestable compared to prior. The heart size is normal. The limitednon-contrast images of the liver are unremarkable. Gallbladder issurgically absent. The spleen is unremarkable. No adrenal masses areseen. The aorta is normal in caliber. There is no significant free fluidor adenopathy. There are nonobstructing bilateral renal stones. Thereis no hydronephrosis. There are hypodense bilateral renal lesions, oneof which on the left has increased in size compared to prior. However,these likely represent cysts. Note is made of a right renal arterystent. There is a small hiatal hernia. There are multiple dilatedfluid-filled loops of small bowel. The terminal ileum is decompressedbut thick-walled.PELVIS: The appendix is normal. The urinary bladder is unremarkable.There is no fluid or adenopathy. No acute osseous abnormality is identified.IMPRESSION: Nonobstructing bilateral nephrolithiasis.Dilated fluid-filled loops of small bowel with a decompressed butthick-walled terminal ileum. Findings are most suggestive of small bowelobstruction possibly related to Crohn's disease or other etiologies ofileitis.Images reviewed, interpreted, and dictated by Dr. Elysia Armando.Transcribed by ZEE Benitez have personally viewed, interpreted and dictated the examination. Kevin read and agree with the above final transcribed report. JAN 09 04:50 139 107 H 75 / H 121 L 3.2 23 H 1.40 \ JAN 09 04:50 \ 14.9 / H 9.8 283 / 42.4 \ Impression and Plan Assessment and Plan: Diagnosis. DIAGNOSIS: Acute kidney failure, likely ATN due to dehydration. Hypokalemia, replacing. History of recent diarrhea with nausea and vomiting which is now resolving. Ileitis per CT scan, question of Crohn's disease versus other inflammatory disorders. Requesting GI input. Mild leukocytosis, likely due to above, continue to monitor. Coronary artery disease. Stable Hypothyroid. Normal TSH and continue current dose of Synthroid Peripheral arterial disease and left lower extremity stent placement Essential hypertension, continue current medications and follow closely Hyperlipidemia with elevated triglycerides History of cervical disc disease and disc fusion surgery BPH On going tobacco use, counseling done PLAN Tapering IV hydration. Continue to replace electrolytes and monitor closely. COVID-19 was negative on admission. Questing GI input for abnormal CT scan and question of possible inflammatory bowel disease. Monitor blood glucose. Discussed with the patient this morning and he understands the plan of care. DC planning: Hopefully tomorrow if renal functions remains stable. documented in this encounter Plan of Treatment Upcoming Encounters Date Type Department Care Team (Late st Contact Info) Description 03/10/2025 1:15 PM EDT Office Visit [facility] Cardiology - [place] [address] [place] [address] Tabby Mcallister PA-C [address] [facility] [address] [place] [address] documented as of this encounter Visit Diagnoses Not on filedocumented in this encounter Care Teams Material Control Supervisor Relationship Specialty Start Date End Date Stacy Moise PA PCP - General 03/02/23 documented as of this encounter
--- OUTSIDE RECORDS SUMMARY | 2024-09-30 17:08 | XMS_ITS | Clinical Summary ---
Author Organization [employer] Address [address] [place] [address] Care Team Providers Care Pantograph Watcher Name Role Phone Stacy Moise Primary Care Provider [phone] Allergies No known active allergies Medications cloNIDine HCL (CATAPRES) 0.1 MG tablet Take 1 tablet (0.1 mg total) by mouth as needed . Active finasteride (PROSCAR) 5 mg tablet Take 1 tablet (5 mg total) by mouth daily. Active gabapentin (NEURONTIN) 100 MG capsule Take 2 capsules (200 mg total) by mouth 4 (four) times daily. Active SITagliptin phosphate (JANUVIA) 100 MG tablet Take 1 tablet (100 mg total) by mouth daily. Active levothyroxine (SYNTHROID, LEVOTHROID) 25 MCG tablet Take 1 tablet (25 mcg total) by mouth Every morning on an empty stomach. Active esomeprazole (NexIUM) 20 MG capsule Take 1 capsule (20 mg total) by mouth daily. Active Bifidobacterium infantis (ALIGN ORAL) Take 1 tablet by mouth in the morning. Active propylene glycoL (Systane Balance) 0.6 % Drop Apply 2 drops to eye(s) in the morning and 2 drops before bedtime. Active clopidogreL (PLAVIX) 75 mg tabletIndications:P VD (peripheral vascular disease) (HCC) Take 1 tablet (75 mg total) by mouth daily. 90 tablet 2 4 Active dutasteride (AVODART) 0.5 mg capsule Take 1 capsule (0.5 mg total) by mouth daily. 4 Active isosorbide mononitrate (IMDUR) 30 MG 24 hr tabletIndications:H ypertension, unspecified type Take 1 tablet (30 mg total) by mouth daily. 90 tablet 2 4 Active losartan (Cozaar) 100 MG tabletIndications:H ypertension, unspecified type Take 1 tablet (100 mg total) by mouth daily. 90 tablet 2 4 03/03/20 25 Active atorvastatin (LIPITOR) 40 MG tabletIndications:C oronary artery disease involving [place] coronary artery of [place] heart without angina pectoris Take 1 tablet (40 mg total) by mouth daily. 90 tablet 2 4 Active nitroglycerin (NITROSTAT) 0.4 MG SL tablet DISSOLVE 1 TAB UNDER TONGUE AT ONSET OF CHEST PAIN. REPEAT EVERY 5 MINUTES FOR 3 DOSES IF NEEDED. IF NO RELIEF CALL 911. 25 tablet 4 Active gemfibroziL (LOPID) 600 MG tabletIndications:H yperlipidemia, unspecified hyperlipidemia type Take 1 tablet (600 mg total) by mouth 2 (two) times daily. 180 tablet 3 4 Active nebivoloL (BYSTOLIC) 10 MG tabletIndications:H ypertension Take 1 tablet (10 mg total) by mouth daily. 90 tablet 3 4 Active amLODIPine (NORVASC) 10 MG tabletIndications:H ypertension, unspecified type Take 1 tablet (10 mg total) by mouth daily. 90 tablet 2 4 Active spironolactone (ALDACTONE) 25 MG tabletIndications:H ypertension, unspecified type Take 1 tablet (25 mg total) by mouth daily. 90 tablet 2 4 Active Active Problems Problem Noted Date Diagnosed Date Vitamin B12 deficiency 02/27/2023 Renal artery stenosis 02/27/2023 Anemia 02/27/2023 CAD (coronary artery disease) 02/27/2023 Chest pain 02/27/2023 Diabetes 02/27/2023 Diverticulitis 02/27/2023 GERD (gastroesophageal reflux disease) HLD (hyperlipidemia) 02/27/2023 HTN (hypertension) 02/27/2023 Hypokalemia 02/27/2023 Hypothyroidism 02/27/2023 Presbyopia 02/27/2023 PVD (peripheral vascular disease) 02/27/2023 Encounters Date Type Department Care Team Description 09/09/2024 1:00 PM EST Office Visit [address] [place] [address] Bell, Tabby, PA-C Hypertension, unspecified type (Primary Dx); ASHD (arteriosclerotic heart disease) 08/08/2024 Orders Only [address] [place] [address] Bell, Tabby, PA-C Hypertension, unspecified type 07/20/2024 Orders Only [place] [address] [facility] [place] [address] Bell, Tabby, PA-C Hypertension, unspecified type 07/13/2024 Orders Only [place] [address] [facility] [place] [address] Bell, Tabby, PA-C Hypertension (Primary Dx) from Last 3 Months Family History Medical History Relation Name Comments Heart attack Brother Hypertension Brother Stroke Brother Cancer Father Heart attack Father Hypertension Father Heart attack Mother Hypertension Mother Hypertension Sister Relation Name Status Comments Brother Father Mother Sister Social History Tobacco Use Types Packs/Day Years Used Date Smoking Tobacco: Every Day Cigarettes Smokeless Tobacco: Never Alcohol Use Standard Drinks/Week Comments Yes 0 (1 standard drink = 0.6 oz pur e alcohol) occasional caffeine use Housing Stability Answer Date Recorded Living situation today Not on file Living situation problems Not on file 2023 Sex and Gender Information Value Date Recorded Sex Assigned at Not on file Legal Sex Male 5:25 PM CDT Gender Identity Not on file Sexual Orientation Not on file Last Filed Vital Signs Vital Sign Reading Time Taken Comments Blood Pressure 122/60 09/09/2024 1:12 PM EST Pulse 55 09/09/2024 1:12 PM EST Temperature - - Respiratory Rate 20 09/09/2024 1:12 PM EST Oxygen Saturation 99% 09/09/2024 1:12 PM EST Inhaled Oxygen Concentration - - Weight 76.7 kg (169 lb) 09/09/2024 1:12 PM EST Height 175.3 cm (5' 9 ) 09/09/2024 1:12 PM EST Body Mass Index 24.96 09/09/2024 1:12 PM EST Plan of Treatment Upcoming Encounters Date Type Department Care Team (Late st Contact Info) Description 03/10/2025 1:15 PM EDT Office Visit [facility] - [place] [address] [place] [address] Tabby Mcallister PA-C [address] [facility] [address] [place] [address] Health Maintenance Due Date Last Done Comments Diabetic Kidney Health Evalu ation (KED) 1945 Diabetic Eye Exam 1953 Diabetic foot exam 1953 Depression Screening (12+) 1955 Tobacco Cessation Counseling and Screening (12+) 1955 Medicare Initial AWV G0438 08/03/2009 Respiratory Syncytial Virus (RSV) Adult or (1 - 1-dose 75+ series) 2018 Hemoglobin A1C 02/27/2023 Falls Risk Screening 11/02/2023 Shingles Vaccine (Zoster) (2 of 2) 05/16/20242023 COVID-19 VACCINE (2023-2 5 season) 2024 08/14/2022, 08/14/2022, 02/12/2022, Additional history exists Influenza Vaccine (#1) 2024 3, 08/14/2022, 08/08/2021, Additional history exists DTAP/TDAP/TD VACCINES (2 - T d or Tdap) 03/21/2034 03/21/2024 Pneumococcal 65+ years Completed 3, 06/08/2019, 02/23/2018 Procedures Procedure Name Priority Date/Time Associated Diagnosis Comments FS_MODEL_IP_ECG 12-LEAD Routine 09/09/2024 3:05 PM EST Hypertension, unspecified type from Last 3 Months Results * ECG 12 lead (09/09/2024 3:05 PM EST) Tabby Mcallister PA-C ECG ORDERABLES Final Result from Last 3 Months Insurance [place] [id number] GENERIC MCR SUPP MEDICARE PART A B MELVIN AGUAYO [id number] Care Teams Pantograph Watcher Relationship Specialty Start Date End Date Stacy Moise PA PCP - General 03/02/23
--- OUTSIDE RECORDS SUMMARY | 2024-09-30 17:08 | XMS_ITS | Encounter Summary ---
Author Organization [employer] Address [address] [place] [address] Care Team Providers Care Reel Film Inspector Name Role Phone Stacy Moise Primary Care Provider [phone] Encounter Details Date Type Department Care Team (Late st Contact Info) Description 08/08/2024 Orders Only [address] [address] Tabby Mcallister PA-C [address] [place] [address] Hypertension, unspecified type Social History Tobacco Use Types Packs/Day Years [...] Description 03/10/2025 1:15 PM EDT Office Visit [address] [address] Tabby Mcallister PA-C [address] [place] [address] documented as of this encounter Visit Diagnoses Diagnosis Hypertension, unspecified type documented in this encounter Care Teams Reel Film Inspector Relationship Specialty Start Date End Date Stacy Moise PA PCP - General 03/02/23 documented as of this encounter
--- OUTSIDE RECORDS SUMMARY | 2024-09-30 17:08 | XMS_ITS | Encounter Summary ---
Author Organization [employer] [facility] [employer] Address [address] [place] [address] Care Team Providers Care Automation Sales Manager Name Role Phone Sudhir Payton Primary Care Provider [phone] Reason for Visit * Reason Comments Hypertension Encounter Details Date Type Department Care Team (Latest Contact Info) Description 03/02/2023 1:15 PM EDT Office Visit [facility] - [place] [address] [place] [address] Tabby Mcallister PA-C [address] [address] Vitamin B12 deficiency (Primary Dx); Renal artery stenosis (HCC); Diverticulitis; Hypokalemia; Presbyopia; PVD (peripheral vascular disease) (HCC); Hypertension, unspecified type; Hyperlipidemia, unspecified hyperlipidemia type; Coronary artery disease involving [place] coronary artery of [place] heart without angina pectoris Social History Tobacco Use Types Packs/Day Years [...] on file documented as of this encounter Last Filed Vital Signs Vital Sign Reading Time Taken Comments Blood Pressure 122/72 03/02/2023 1:19 PM EDT Pulse 54 03/02/2023 1:19 PM EDT Temperature - - Respiratory Rate 20 03/02/2023 1:19 PM EDT Oxygen Saturation 97% 03/02/2023 1:19 PM EDT Inhaled Oxygen Concentration - - Weight 77.6 kg (171 lb) 03/02/2023 1:19 PM EDT Height 175.3 cm (5' 9 ) 03/02/2023 1:19 PM EDT Body Mass Index 25.25 03/02/2023 1:19 PM EDT documented in this encounter Progress Notes * Tabby Mcallister PA-C - 03/02/2023 1:15 PM EDT CARDIOLOGY NEW PATIENT EVALUATION Date of Service: 03/02/2023 NAME: Scottie Bansal : 1945 AGE: 77 y.o. PCP: SUDHIR PAYTON Chief Complaint Establish care Chief Complaint Patient presents with ??? Hypertension History of Present Illness Pleasant 77-year-old white male chronic smoker, CAD prior multiple PCI's, [facility] 2019 patent stents noother new disease identified with normal LV function. PVD with prior bilateral lower extremity CVI with Dr. Carrasco. Renovascular hypertension bilateral renal artery stenosis balloon angioplasty of an in stent stenosis on the right in December 2020. History of TIAs with negative work-up April 2020. Came recently with refractory blood pressures despite 4 agents was evaluated by Dr. Carrasco with in-stent renal stenosis subsequent catheter-based intervention. Blood pressures have come under better controlsince that time. History of GI bleed AVMs therefore prophylactic anticoagulation has been avoided. He has been continued on dual antiplatelet therapy. Stage III CKD stable. Continues to smoke he is down to 6 cigarettes a day. Denies chest pain claudication symptoms basically has no complaints today. Review of Systems HEENT no sore throat ear problems or visual problems Respiratory chronic cough white sputum no hemoptysis GI no melena diarrhea or constipation no dysuria frequency or hematuria Neurologic no seizures or strokes questionable TIAs, continue dual antiplatelet therapy Musculoskeletal usual arthritic pain Psychiatric no anxiety depression Current Medications Current Outpatient Medications Medication Sig Dispense Refill ??? amLODIPine (NORVASC) 10 MG tablet Take 1 tablet (10 mg total) by mouth in the morning. ??? atorvastatin (LIPITOR) 40 MG tablet Take 1 tablet (40 mg total) by mouth in the morning. ??? Bifidobacterium infantis (ALIGN ORAL) Take 1 tablet by mouth in the morning. ??? cloNIDine HCL (CATAPRES) 0.1 MG tablet Take 1 tablet (0.1 mg total) by mouth as needed . ??? clopidogreL (PLAVIX) 75 mg tablet Take 1 tablet (75 mg total) by mouth in the morning. . ??? cyanocobalamin, vitamin B-12, 500 MCG tablet Take 1 tablet (500 mcg total) by mouth in the morning. ??? esomeprazole (NexIUM) 20 MG capsule Take 1 capsule (20 mg total) by mouth in the morning. ??? finasteride (PROSCAR) 5 mg tablet Take 1 tablet (5 mg total) by mouth in the morning. ??? gabapentin (NEURONTIN) 100 MG capsule Take 2 capsules (200 mg total) by mouth in the morning and 2 capsules (200 mg total) at noon and 2 capsules (200 mg total) in the evening and 2 capsules (200mg total) before bedtime. ??? gemfibroziL (LOPID) 600 MG tablet Take 1 tablet (600 mg total) by mouth in the morning and 1 tablet (600 mg total) in the evening. Take before meals. ??? isosorbide mononitrate (IMDUR) 60 MG 24 hr tablet Take 1 tablet (60 mg total) by mouth in the morning. ??? levothyroxine (SYNTHROID, LEVOTHROID) 25 MCG tablet Take 1 tablet (25 mcg total) by mouth Everymorning on an empty stomach. ??? losartan (COZAAR) 25 MG tablet Take 1 tablet (25 mg total) by mouth in the morning. ??? nebivoloL (BYSTOLIC) 10 MG tablet Take 1 tablet (10 mg total) by mouth in the morning. ??? nitroglycerin (NITROSTAT) 0.[address] 1 tablet (0.4 mg total) under the tongue every5 (five) minutes as needed Put 1 pill under tongue every 5min as needed for chest pain.No more than3 doses in 15min.Call 911 if pain unrelieved 5min after 1st dose. ??? propylene glycoL (Systane Balance) 0.6 % Drop Apply 2 drops to eye(s) in the morning and 2 drops before bedtime. ??? psyllium (KONSYL) Powd Take by mouth as needed. ??? SITagliptin phosphate (JANUVIA) 100 MG tablet Take 1 tablet (100 mg total) by mouth in the morning. ??? spironolactone (ALDACTONE) 25 MG tablet Take 1 tablet (25 mg total) by mouth in the morning. No current facility-administered medications for this visit. Past Medical History Past Medical History: Diagnosis Date ??? Anemia ??? CAD (coronary artery disease) ??? Chest pain ??? Diabetes (HCC) ??? Diverticulitis ??? GERD (gastroesophageal reflux disease) ??? HLD (hyperlipidemia) ??? HTN (hypertension) ??? Hypokalemia ??? Hypothyroidism ??? Presbyopia ??? PVD (peripheral vascular disease) (HCC) ??? Renal artery stenosis (HCC) ??? Skin cancer ??? TIA (transient ischemic attack) ??? Vitamin B12 deficiency Past Surgical History Past Surgical History: Procedure Laterality Date ??? BACK SURGERY ??? CARDIAC CATHETERIZATION ??? CAROTID STENT ??? CERVICAL SPINE SURGERY ??? CHOLECYSTECTOMY ??? COLECTOMY ??? COLONOSCOPY ??? ILIAC ARTERY STENT ??? RENAL ARTERY STENT Allergies No Known Allergies Social History Social History Socioeconomic History ??? Marital status: Spouse name: Not on file ??? Number of children: Not on file ??? Years of education: Not on file ??? Highest education level: Not on file Occupational History ??? Not on file Tobacco Use ??? Smoking status: Every Day Types: Cigarettes ??? Smokeless tobacco: Never Substance and Sexual Activity ??? Alcohol use: Not Currently Comment: caffeine use ??? Drug use: Never ??? Sexual activity: Not on file Other Topics Concern ??? Not on file Social History Narrative ??? Not on file Social Determinants of Health Financial Resource Strain: Not on file Food Insecurity: Not on file Transportation Needs: Not on file Physical Activity: Not on file Stress: Not on file Social Connections: Not on file Intimate Partner Violence: Not on file Housing Stability: Not on file Family History Family History Problem Relation Age of Onset ??? Hypertension Mother ??? Heart attack Mother ??? Hypertension Father ??? Heart attack Father ??? Cancer Father ??? Hypertension Sister ??? Hypertension Brother ??? Heart attack Brother ??? Stroke Brother Physical Exam BP 122/72 (BP Location: Left arm, Patient Position: Sitting) Pulse 54 Resp 20 Ht 1.753 m (5' 9 ) Wt 77.6 kg (171 lb) SpO2 97% BMI 25.25 kg/m?? Physical Exam Constitutional: Appearance: Normal appearance. Patient is normal weight. HENT: Head: Normocephalic and atraumatic. Right Ear: External ear normal. Left Ear: External ear normal. Nose: Nose normal. Mouth/Throat: Pharynx: Oropharynx is clear. Eyes: Extraocular Movements: Extraocular movements intact. Conjunctiva/sclera: Conjunctivae normal. Pupils: Pupils are equal, round, and reactive to light. Cardiovascular: Rate and Rhythm: Normal rate and regular rhythm Pulses: Normal pulses. Heart sounds: Normal heart sounds. Pulmonary: Effort: Pulmonary effort is normal. Breath sounds: Normal breath sounds. Abdominal: General: Abdomen is flat. Bowel sounds are normal. Palpations: Abdomen is soft. Musculoskeletal: General: Normal range of motion. Cervical back: Normal range of motion and neck supple. Skin: General: Skin is warm and dry. Capillary Refill: Capillary refill takes less than 2 seconds. Neurological: General: No focal deficit present. Mental Status: He is alert and oriented to person, place, and time. Mental status is at baseline. Psychiatric: Mood and Affect: Mood normal. Behavior: Behavior normal. Thought Content: Thought content normal. Judgment: Judgment normal. Assessment -CAD, history of PCI, [facility] 03/2020 patent stents stable other coronary anatomy -History of TIA with negative work-up 2019-continue DAPT -Left facial paresthesias improved with gabapentin Kevin BUNCH -Renal vascular hypertension disease renal artery stenosis balloon angioplasty -Chronic tobacco abuse -History of GI bleed/AVMs-avoid prophylactic anticoagulation -Chronic fatty liver -Chronic hypokalemia -PVD prior bilateral lower extremity CVI Plan Blood pressure stable after recent renal artery catheter-based intervention. Denies angina or other cardiovascular complaints Blood pressure stable on current medical regimen. Blood pressure goal of less than 130/80 reviewed with the patient. He is currently at goal Encouraged daily exercise Encourage smoking cessation Follow-up in 6 months with EKG documented in this encounter Plan of Treatment Upcoming Encounters Date Type Department Care Team (Late st Contact Info) Description 03/10/2025 1:15 PM EDT Office Visit [facility] - [place] [address] [place] [address] Tabby Mcallister PA-C [address] [place] [address] documented as of this encounter Procedures Procedure Name Priority Date/Time Associated Diagnosis Comments FS_MODEL_IP_ECG 12-LEAD Routine 03/03/2023 3:22 PM EDT Hypertension, unspecified type documented in this encounter Results * ECG 12 lead (03/03/2023 3:22 PM EDT) Tabby Mcallister PA-C ECG ORDERABLES Final Result documented in this encounter Visit Diagnoses Diagnosis Vitamin B12 deficiency- Primary Other B-complex deficiencies Renal artery stenosis (HCC) Atherosclerosis of renal artery Diverticulitis Diverticulitis of colon (without mention of hemorrhage) Hypokalemia Hypopotassemia Presbyopia PVD (peripheral vascular disease) (HCC) Unspecified peripheral vascular disease Hypertension, unspecified type Hyperlipidemia, unspecified hyperlipidemia type Coronary artery disease involving [place] coronary artery of [place] heart without angina pectoris documented in this encounter Care Teams Automation Sales Manager Relationship Specialty Start Date End Date Sudhir Payton PA PCP - General 03/02/23 documented as of this encounter
--- OUTSIDE RECORDS SUMMARY | 2024-09-30 17:08 | XMS_ITS | Encounter Summary ---
Author Organization [employer] Address [address] [place] [address] Care Team Providers Care Fan Balancer Name Role Phone Stcay Moise Primary Care Provider [phone] Reason for Visit * Reason Comments Hypertension Encounter Details Date Type Department Care Team (Late st Contact Info) Description 09/03/2023 1:15 PM EDT Office Visit [facility] Cardiology - [place] [address] [place] [address] Tabby Mcallister PA-C [address] [address] Hypertension, unspecified type (Primary Dx); Coronary artery disease involving nome coronary artery of nome heart without angina pectoris; PVD (peripheral vascular disease) ([facility]) Social History Tobacco Use Types Packs/Day Years [...] Sign Reading Time Taken Comments Blood Pressure 125/68 09/03/2023 1:16 PM EDT Pulse 54 09/03/2023 1:16 PM EDT Temperature - - Respiratory Rate 17 09/03/2023 1:16 PM EDT Oxygen Saturation 98% 09/03/2023 1:16 PM EDT Inhaled Oxygen Concentration - - Weight 74.4 kg (164 lb) 09/03/2023 1:16 PM EDT Height 175.3 cm (5' 9 ) 09/03/2023 1:16 PM EDT Body Mass Index 24.22 09/03/2023 1:16 PM EDT documented in this encounter Progress Notes * Tabby Mcallister PA-C - 09/03/2023 1:15 PM EDT History of Present Illness Pleasant 77-year-old white male chronic smoker, CAD prior multiple PCI's, [facility] 2019 patent stents noother new disease identified with normal LV function. ??PVD with prior bilateral lower extremity CVI with Dr. Carrasco. ??Renovascular hypertension bilateral renal artery stenosis balloon angioplasty ofan in stent stenosis on the right in December 2020. ??History of TIAs with negative work-up April 2020.??Came recently with refractory blood pressures despite 4 agents was evaluated by Dr. Carrasco with in-stent renal stenosis subsequent catheter-based intervention. ??Blood pressures have come under better control since that time. ?? History of GI bleed AVMs therefore prophylactic anticoagulation has been avoided. ??He has been continued plaxix only. ??Stage III CKD stable. ?? Continues to smoke he is down to 6 cigarettes a day. ??Denies chest pain claudication symptoms Came recently with elevating blood pressures. Comes today for follow-up. With adjustments in medications blood pressures have improved significantly. He continues to walk daily. Review of Systems 14 point review of systems is negative except as noted in HPI. Social History Tobacco Use ??? Smoking status: Every Day Types: Cigarettes ??? Smokeless tobacco: Never Substance Use Topics ??? Alcohol use: Not Currently Comment: caffeine use ??? Drug use: Never Past Surgical History: Procedure Laterality Date ??? BACK SURGERY ??? CARDIAC CATHETERIZATION ??? CAROTID STENT ??? CERVICAL SPINE SURGERY ??? CHOLECYSTECTOMY ??? COLECTOMY ??? COLONOSCOPY ??? ILIAC ARTERY STENT ??? RENAL ARTERY STENT Past Medical History: Diagnosis Date ??? Anemia ??? CAD (coronary artery disease) ??? Chest pain ??? Diabetes (HCC) ??? Diverticulitis ??? GERD (gastroesophageal reflux disease) ??? HLD (hyperlipidemia) ??? HTN (hypertension) ??? Hypokalemia ??? Hypothyroidism ??? Presbyopia ??? PVD (peripheral vascular disease) (HCC) ??? Renal artery stenosis (HCC) ??? Skin cancer ??? TIA (transient ischemic attack) ??? Vitamin B12 deficiency Family History Problem Relation Age of Onset ??? Hypertension Mother ??? Heart attack Mother ??? Hypertension Father ??? Heart attack Father ??? Cancer Father ??? Hypertension Sister ??? Hypertension Brother ??? Heart attack Brother ??? Stroke Brother Current Outpatient Medications: ??? amLODIPine (NORVASC) 10 MG tablet, Take 1 tablet (10 mg total) by mouth daily., Disp: , Rfl: ??? atorvastatin (LIPITOR) 40 MG tablet, Take 1 tablet (40 mg total) by mouth daily., Disp: , Rfl: ??? Bifidobacterium infantis (ALIGN ORAL), Take 1 tablet by mouth in the morning., Disp: , Rfl: ??? cloNIDine HCL (CATAPRES) 0.1 MG tablet, Take 1 tablet (0.1 mg total) by mouth as needed ., Disp: , Rfl: ??? clopidogreL (PLAVIX) 75 mg tablet, Take 1 tablet (75 mg total) by mouth in the morning., Disp: 90 tablet, Rfl: 2 ??? esomeprazole (NexIUM) 20 MG capsule, Take 1 capsule (20 mg total) by mouth daily., Disp: , Rfl: ??? finasteride (PROSCAR) 5 mg tablet, Take 1 tablet (5 mg total) by mouth daily., Disp: , Rfl: ??? gabapentin (NEURONTIN) 100 MG capsule, Take 2 capsules (200 mg total) by mouth 4 (four) times daily., Disp: , Rfl: ??? gemfibroziL (LOPID) 600 MG tablet, Take 1 tablet (600 mg total) by mouth 2 (two) times daily before meals., Disp: , Rfl: ??? isosorbide mononitrate (IMDUR) 30 MG 24 hr tablet, Take 1 tablet (30 mg total) by mouth daily.,Disp: , Rfl: ??? levothyroxine (SYNTHROID, LEVOTHROID) 25 MCG tablet, Take 1 tablet (25 mcg total) by mouth Every morning on an empty stomach., Disp: , Rfl: ??? losartan (Cozaar) 50 MG tablet, Take 1 tablet (50 mg total) by mouth daily., Disp: 90 tablet, Rfl: 2 ??? nebivoloL (BYSTOLIC) 10 MG tablet, Take 1 tablet (10 mg total) by mouth daily., Disp: , Rfl: ??? nitroglycerin (NITROSTAT) 0.4 MG SL tablet, Place 1 tablet (0.4 mg total) under the tongue every 5 (five) minutes as needed Put 1 pill under tongue every 5min as needed for chest pain.No more than 3 doses in 15min.Call 911 if pain unrelieved 5min after 1st dose., Disp: , Rfl: ??? propylene glycoL (Systane Balance) 0.6 % Drop, Apply 2 drops to eye(s) in the morning and 2 drops before bedtime., Disp: , Rfl: ??? SITagliptin phosphate (JANUVIA) 100 MG tablet, Take 1 tablet (100 mg total) by mouth daily., Disp: , Rfl: ??? spironolactone (ALDACTONE) 25 MG tablet, Take 1 tablet (25 mg total) by mouth daily., Disp: , Rfl: Vitals: 09/03/23 1316 BP: 125/68 Pulse: 54 Resp: 17 SpO2: 98% Physical Exam Constitutional: Appearance: Normal appearance. Patient is normal weight. Cardiovascular: Rate and Rhythm: Normal rate and regular rhythm. Pulses: Normal pulses. Heart sounds: Normal heart sounds. Pulmonary: Effort: Pulmonary effort is normal. Breath sounds: Normal breath sounds. Abdominal: General: Abdomen is flat. Bowel sounds are normal. Palpations: Abdomen is soft. Skin: General: Skin is warm and dry. Capillary Refill: Capillary refill takes less than 2 seconds. Neurological: General: No focal deficit present. Mental Status: He is alert and oriented to person, place, and time. Mental status is at baseline. Psychiatric: Mood and Affect: Mood normal. Behavior: Behavior normal. Thought Content: Thought content normal. Judgment: Judgment normal. Lab Review Component Value Date/Time WBC 9.8 (H) 01/09/2022 0450 RBC 4.77 01/09/2022 0450 HGB 14.9 01/09/2022 0450 HCT 42.4 01/09/2022 0450 Component Value Date/Time GLUCOSE 121 (H) 01/09/2022 0450 BUN 75 (H) 01/09/2022 0450 CREATININE 1.40 (H) 01/09/2022 0450 Component Value Date/Time AST 27 01/08/2022 0601 ALT 49 01/08/2022 0601 ALKPHOS 55 01/08/2022 0601 No results found for: CHOL, LDL, LDLCALC, HDL, TRIG Component Value Date/Time HGBA1C 6.8 03/11/2020 0027 Component Value Date/Time TSH 1.980 01/08/2022 0601 Assessment Renovascular hypertension, renal artery stenosis, balloon angioplasty Luna BUNCH -CAD, history of PCI, [facility] 03/2020 patent stents stable other coronary anatomy -History of TIA with negative work-up 2019-continue Plavix -History of GI bleed/AVMs-avoid prophylactic anticoagulation -Chronic tobacco abuse -Chronic fatty liver -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 Blood pressures improved on current medical regimen. No other additional changes today. He had labs with PCP within the last couple of weeks. We will request a copy otherwise follow-up in 6 months with EKG Tabby Mcallister PA-C documented in this encounter Plan of Treatment Upcoming Encounters Date Type Department Care Team (Late st Contact Info) Description 03/10/2025 1:15 PM EDT Office Visit [facility] Cardiology - [address] [address] Tabby Mcallister PA-C [address] [place] [phone] documented as of this encounter Procedures Procedure Name Priority Date/Time Associated Diagnosis Comments FS_MODEL_IP_ECG 12-LEAD Routine 09/04/2023 8:41 AM EDT Hypertension, unspecified type documented in this encounter Results * ECG 12 lead (09/04/2023 8:41 AM EDT) us Tabby [place] PA-C ECG ORDERABLES Final Result documented in this encounter Visit Diagnoses Diagnosis Hypertension, unspecified type- Primary Coronary artery disease involving nome coronary artery of nome heart without angina pectoris PVD (peripheral vascular disease) (HCC) Unspecified peripheral vascular disease documented in this encounter Care Teams Fan Balancer Relationship Specialty Start Date End Date Stacy Moise PA PCP - General 03/02/23 documented as of this encounter
--- OUTSIDE RECORDS SUMMARY | 2024-09-30 17:08 | XMS_ITS | Encounter Summary ---
Author Organization [employer] Address [address] [address] Care Team Providers Care Diesel Powerplant Mechanic Name Role Phone Stacy Moise Primary Care Provider Encounter Details Date Type Department Care Team (Late st Contact Info) Description 03/04/[address] [facility] Cardiology - [place] [address] [place] [address] Ivon Luque, NATANAEL [address] [place] [address] Hyperlipidemia, unspecified hyperlipidemia type (Primary Dx) Social History Tobacco Use Types [...] Visit [facility] - [place] [address] [place] [address] Tabby Mcallister PA-C [address] [facility] [address] [place] [address] documented as of this encounter Visit Diagnoses Diagnosis Hyperlipidemia, unspecified hyperlipidemia type- Primary documented in this encounter Care Teams Diesel Powerplant Mechanic Relationship Specialty Start Date End Date Stacy Moise PA PCP - General 03/02/23 documented as of this encounter
--- OUTSIDE RECORDS SUMMARY | 2024-09-30 17:08 | XMS_ITS | Encounter Summary ---
Author Organization [employer] Address [address] [place] [address] Care Team Providers Care Data Entry Clerk Name Role Phone Stacy Moise Primary Care Provider [phone] Reason for Visit * Reason Onset Date Comments Medication Refill 04/21/2023 Encounter Details Date Type Department Care Team (Late Contact Info) Description 04/21/2023 Telephone [facility] [address] [place] [address] Tabby Mcallister PA-C [address] [address] Medication Refill Social History Tobacco Use Types Packs/Day Years [...] encounter Miscellaneous Notes * Telephone Encounter - Ivon Luque - 04/21/2023 12:27 PM EDT Needs refill on losartan. Requesting 90 day supply. documented in this encounter Plan of Treatment Upcoming Encounters Date Type Department Care Team (Late Contact Info) Description 03/10/2025 1:15 PM EDT Office Visit [facility] [address] [place] [address] Tabby Mcallister PA-C [address] [address] [place] [address] documented as of this encounter Visit Diagnoses Not on filedocumented in this encounter Care Teams Data Entry Clerk Relationship Specialty Start Date End Date Stacy Moise PA PCP - General 03/02/23 documented as of this encounter
--- OUTSIDE RECORDS SUMMARY | 2024-09-30 17:08 | XMS_ITS | Encounter Summary ---
Author Organization [facility] [employer] Address [address] [place] [address] Care Team Providers Care School Services Officer Name Role Phone Stacy Moise Primary Care Provider [phone] Reason for Visit * Reason Comments Medication Refill Encounter Details Date Type Department Care Team (Late Contact Info) Description 05/02/[address] [address] Tabby Mcallister PA-C [address] [address] Social History Tobacco Use Types [...] Description 03/10/2025 1:15 PM EDT Office Visit [facility] [address] [place] [address] Tabby Mcallister PA-C [facility] [address] [address] documented as of this encounter Visit Diagnoses Not on filedocumented in this encounter Care Teams School Services Officer Relationship Specialty Start Date End Date Stacy Moise PA PCP - General 03/02/23 documented as of this encounter
--- OUTSIDE RECORDS SUMMARY | 2024-09-30 17:08 | XMS_ITS | Encounter Summary ---
Author Organization [facility] [employer] Address [address] [place] [address] Care Team Providers Care Medical Records Administrator Name Role Phone Stacy Moise Primary Care Provider [phone] Reason for Visit * Reason Comments Hypertension Edema Encounter Details Date Type Department Care Team (Late st Contact Info) Description 09/09/2024 1:00 PM EST Office Visit [facility] Cardiology - [place] [address] [place] [address] Tabby Mcallister PA-C [address] [address] Hypertension, unspecified type (Primary Dx); ASHD (arteriosclerotic heart disease) Social History Tobacco Use Types Packs/Day Years [...] Mass Index 24.96 09/09/2024 1:12 PM EST documented in this encounter Progress Notes * Tabby Mcallister PA-C - 09/09/2024 1:00 PM EST History of Present Illness Pleasant 78-year-old white male chronic smoker, CAD prior multiple PCI's, [facility] 2019 patent stents noother new disease [...] has been avoided. He has been continued plaxix only. Stage III CKD stable. Continues to smoke he is down to 6 cigarettes a day. Denies chest pain claudication symptoms Came recently with elevating blood pressures. Comes today for follow-up. No new complaints Review of Systems 14 point review of systems is negative except as noted in HPI. Social History Tobacco Use Smoking status: Every Day Types: Cigarettes Smokeless tobacco: Never Substance Use Topics Alcohol use: Yes Comment: occasional caffeine use Drug use: Never Past Surgical History: Procedure Laterality Date BACK SURGERY CARDIAC CATHETERIZATION CAROTID STENT CERVICAL SPINE SURGERY CHOLECYSTECTOMY COLECTOMY COLONOSCOPY ILIAC ARTERY STENT RENAL ARTERY STENT Past Medical History: Diagnosis Date Anemia CAD (coronary artery disease) Chest pain Diabetes (HCC) Diverticulitis GERD (gastroesophageal reflux disease) HLD (hyperlipidemia) HTN (hypertension) Hypokalemia Hypothyroidism Presbyopia PVD (peripheral vascular disease) (HCC) Renal artery stenosis (HCC) Skin cancer TIA (transient ischemic attack) Vitamin B12 deficiency Family History Problem Relation Age of Onset Hypertension Mother Heart attack Mother Hypertension Father Heart attack Father Cancer Father Hypertension Sister Hypertension Brother Heart attack Brother Stroke Brother Current Outpatient Medications: amLODIPine (NORVASC) 10 MG tablet, Take 1 tablet (10 mg total) by mouth daily., Disp: 90 tablet, Rfl: 2 atorvastatin (LIPITOR) 40 MG tablet, Take 1 tablet (40 mg total) by mouth daily., Disp: 90 tablet, Rfl: 2 Bifidobacterium infantis (ALIGN ORAL), Take 1 tablet by mouth in the morning., Disp: , Rfl: cloNIDine HCL (CATAPRES) 0.1 MG tablet, Take 1 tablet (0.1 mg total) by mouth as needed ., Disp: , Rfl: clopidogreL (PLAVIX) 75 mg tablet, Take 1 tablet (75 mg total) by mouth daily., Disp: 90 tablet, Rfl: 2 dutasteride (AVODART) 0.5 mg capsule, Take 1 capsule (0.5 mg total) by mouth daily., Disp: , Rfl: esomeprazole (NexIUM) 20 MG capsule, Take 1 capsule (20 mg total) by mouth daily., Disp: , Rfl: finasteride (PROSCAR) 5 mg tablet, Take 1 tablet (5 mg total) by mouth daily., Disp: , Rfl: gabapentin (NEURONTIN) 100 MG capsule, Take 2 capsules (200 mg total) by mouth 4 (four) times daily., Disp: , Rfl: gemfibroziL (LOPID) 600 MG tablet, Take 1 tablet (600 mg total) by mouth 2 (two) times daily., Disp: 180 tablet, Rfl: 3 isosorbide mononitrate (IMDUR) 30 MG 24 hr tablet, Take 1 tablet (30 mg total) by mouth daily., Disp: 90 tablet, Rfl: 2 levothyroxine (SYNTHROID, LEVOTHROID) 25 MCG tablet, Take 1 tablet (25 mcg total) by mouth Every morning on an empty stomach., Disp: , Rfl: losartan (Cozaar) 100 MG tablet, Take 1 tablet (100 mg total) by mouth daily., Disp: 90 tablet, Rfl: 2 nebivoloL (BYSTOLIC) 10 MG tablet, Take 1 tablet (10 mg total) by mouth daily., Disp: 90 tablet, Rfl: 3 nitroglycerin (NITROSTAT) 0.4 MG SL tablet, DISSOLVE 1 TAB UNDER TONGUE AT ONSET OF CHEST PAIN. REPEAT EVERY 5 MINUTES FOR 3 DOSES IF NEEDED. IF NO RELIEF CALL 911., Disp: 25 tablet, Rfl: 0 propylene glycoL (Systane Balance) 0.6 % Drop, Apply 2 drops to eye(s) in the morning and 2 drops before bedtime., Disp: , Rfl: SITagliptin phosphate (JANUVIA) 100 MG tablet, Take 1 tablet (100 mg total) by mouth daily., Disp: , Rfl: spironolactone (ALDACTONE) 25 MG tablet, Take 1 tablet (25 mg total) by mouth daily., Disp: 90 tablet, Rfl: 2 Vitals: 09/09/24 1312 BP: 122/60 Pulse: 55 Resp: 20 SpO2: 99% Physical Exam Constitutional: Appearance: Normal appearance. Patient is normal weight. Cardiovascular: Rate and Rhythm: Normal rate and regular rhythm. Pulses: Normal pulses. Heart sounds: Normal heart sounds. Pulmonary: Effort: Pulmonary effort is normal. Breath sounds: Normal breath sounds. Skin: General: Skin is warm and dry. 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 Continue all same medications. Continue daily exercise Continue low-sodium diet Continue off cigarettes Continue follow-up with Dr. Carrasco. Follow-up in 6 months Tabby Mcallister PA-C [employer] documented in this encounter Plan of Treatment Upcoming Encounters Date Type Department Care Team (Late st Contact Info) Description 03/10/2025 1:15 PM EDT Office Visit [facility] Cardiology - [place] [address] [place] [address] Tabby Mcallister PA-C [address] [address] documented as of this encounter Procedures Procedure Name Priority Date/Time Associated Diagnosis Comments FS_MODEL_IP_ECG 12-LEAD Routine 09/09/2024 3:05 PM EST Hypertension, unspecified type documented in this encounter Results * ECG 12 lead (09/09/2024 3:05 PM EST) Tabby Mcallister PA-C ECG ORDERABLES Final Result documented in this encounter Visit Diagnoses Diagnosis Hypertension, unspecified type- Primary ASHD (arteriosclerotic heart disease) Coronary atherosclerosis of unspecified type of vessel, [place] or graft documented in this encounter Care Teams Medical Records Administrator Relationship Specialty Start Date End Date Stacy Moise PA PCP - General 03/02/23 documented as of this encounter
--- OUTSIDE RECORDS SUMMARY | 2024-09-30 17:08 | XMS_ITS | Encounter Summary ---
Author Organization [employer] Address [address] [place] [id number] Care Team Providers Care Water Resource Engineering Specialist Name Role Phone Sudhir Payton Primary Care Provider [phone] Encounter Details Date Type Department Care Team (Late st Contact Info) Description 01/09/2022 Transcribed Document [facility] [place] [address] ProviderMireya MD [address] [place] [id number] Social History Tobacco Use Types Packs/Day Years Used Date Smoking Tobacco: Never Assessed Sex and Gender Information Value Date Recorded Sex Assigned at Not on file Legal Sex Male 5:25 PM CDT Gender Identity Not on file Sexual Orientation Not on file documented as of this encounter Miscellaneous Notes * Cerner Conversion Note - Mireya Osuna MD - 01/09/2022 3:16 PM DRYERMAN/WOMAN [facility] [place] [address] [address] [facility] :1945 Visit Time:01/08/2022 Your Visit Summary Your Care Team Admitting Physician - LIA SANTOYO MD-INT Attending Physician - LIA SANTOYO MD-INT Primary Care Physician - SUDHIR PAYTON PA-[facility] Referring Physician - SEDA LOYA MD Your Diagnosis Abnormal diagnostic test Acute kidney failure, unspecified, Acute kidney failure, unspecified, ARF (acute renal failure) Dehydration Dehydration These Are Your Goals Patient Discharge Goal Patient Discharge Goal: Home Discharge Vitals Heart Rate (Monitored) 70 Blood Pressure 146/81 What to do next Instructions From Your Care Team Discharge Follow Up Instructions: Activity: Discharge Activity: Activity as tolerated Diet: Discharge Diet: Resume usual diet as tolerated Follow-Up Appointments Follow Up with Follow up with primary care provider When Within 2 to 3 days Comments Call for follow up appointment Medications What How Much When Instructions Next Dose atorvastatin (atorvastatin 40 mg oral tablet) 1 Tablet(s) Oral At Bedtime esomeprazole (NexIUM 24HR 20 mg oral delayed release capsule) 1 Capsule(s) Oral Every Day potassium chloride (potassium chloride 20 mEq oral tablet, extended release) 1 Tablet(s) Oral Every Day amLODIPine (Norvasc 10 mg oral tablet) 1 Tablet(s) Oral Every Day aspirin (aspirin 81 mg oral delayed release tablet) 1 Tablet(s) Oral Every Day cetirizine (ZyrTEC 10 mg oral tablet) 1 Tablet(s) Oral Every Day cloNIDine (clonidine 0.1 mg oral tablet) 1 Tablet(s) Oral Three Times A Day as needed for Hypertension take for systolic blood pressure greater than 160 clopidogrel (Plavix 75 mg oral tablet) 1 Tablet(s) Oral Every Day cyanocobalamin (cyanocobalamin 1000 mcg/ mL injectable solution) 1 Milliliter(s) IntraMuscular Once a month finasteride (finasteride 5 mg oral tablet) 1 Tablet(s) Oral Every Day furosemide (furosemide 20 mg oral tablet) 1 Tablet(s) Oral Every Day gabapentin (gabapentin 100 mg oral capsule) 4 Capsule(s) Oral At Bedtime may take 4-5 capsules as directed gabapentin (gabapentin 100 mg oral capsule) 2 Capsule(s) Oral Four Times A Day takes at 8am, 11am, 2pm, 5pm gemfibrozil (Lopid 600 mg oral tablet) 1 Tablet(s) Oral Two Times A Day isosorbide mononitrate (isosorbide mononitrate 60 mg oral tablet, extended release) 1 Tablet(s) Oral Every Morning levothyroxine (levothyroxine 25 mcg (0.025 mg) oral tablet) 1 Tablet(s) Oral Every Day losartan (losartan 100 mg oral tablet) 1 Tablet(s) Oral Every Day nebivolol (Bystolic 10 mg oral tablet) 1 Tablet(s) Oral Every Day SITagliptin (Januvia 100 mg oral tablet) 1 Tablet(s) Oral Every Day Take your medications faithfully. Do NOT skip medication. Do NOT stop taking medications without the direction of a physician. Carry a list of your medications with you at all times, and take this medication list with you to your first follow up visit. Report any side effects. Avoid herbal remedies unless discussed with your physician. As part of your treatment plan, your physician may have prescribed a limited course of a controlled substance. This medication may be given to help people with moderate or severe pain or for other medical conditions, but there are risks involved with treatment. Common side effects may include nausea, constipation, drowsiness, sweating, itching, dry mouth, and rash. More serious side effects may include cognitive and motor impairment, like problems with thinking, concentrating, alertness, and movement (e.g. slowed reflexes), and driving and operating heavy machinery can be dangerous. It is important for you to talk to your physician if you have these side effects or questions. These controlled substances can produce physical dependence and be habit-forming if taken for an extended period of time, which means that the body has gotten used to them and may experience withdrawal symptoms if they are abruptly stopped. Withdrawal symptoms can include runny nose, sweating, goose bumps, diarrhea, abdominal cramping, rapid heartbeat, difficulty sleeping, and nervousness. Please dispose of unused and medications per your retail pharmacy guidance. Allergies No Known Medication Allergies Immunizations This Visit No Immunizations Found Education Materials Dehydration, Adult Dehydration is a condition in which there is not enough water or other fluids in the body. This happens when a person loses more fluids than he or she takes in. Important organs, such as the kidneys, brain, and heart, cannot function without a proper amount of fluids. Any loss of fluids from the body can lead to dehydration. Dehydration can be mild, moderate, or severe. It should be treated right away to prevent it from becoming severe. What are the causes? Dehydration may be caused by: ??? Conditions that cause loss of water or other fluids, such as diarrhea, vomiting, or sweating or urinating a lot. ??? Not drinking enough fluids, especially when you are ill or doing activities that require a lot of energy. ??? Other illnesses and conditions, such as fever or infection. ??? Certain medicines, such as medicines that remove excess fluid from the body (diuretics). ??? Lack of safe drinking water. ??? Not being able to get enough water and food. What increases the risk? The following factors may make you more likely to develop this condition: ??? Having a long-term (chronic) illness that has not been treated properly, such as diabetes, heart disease, or kidney disease. ??? Being 65 years of age or older. ??? Having a disability. ??? Living in a place that is high in altitude, where thinner, oven drier tender air causes more fluid loss. ??? Doing exercises that put stress on your body for a long time (endurance sports). What are the signs or symptoms? Symptoms of dehydration depend on how severe it is. Mild or moderate dehydration ??? Thirst. ??? Dry lips or dry mouth. ??? Dizziness or light-headedness, especially when standing up from a seated position. ??? Muscle cramps. ??? Dark urine. Urine may be the color of tea. ??? Less urine or tears produced than usual. ??? Headache. Severe dehydration ??? Changes in skin. Your skin may be cold and clammy, blotchy, or pale. Your skin also may not return to normal after being lightly pinched and released. ??? Little or no tears, urine, or sweat. ??? Changes in vital signs, such as rapid breathing and low blood pressure. Your pulse may be weak or may be faster than 100 beats a minute when you are sitting still. ??? Other changes, such as: ? Feeling very thirsty. ? Sunken eyes. ? Cold hands and feet. ? Confusion. ? Being very tired (lethargic) or having trouble waking from sleep. ? Short-term weight loss. ? Loss of consciousness. How is this diagnosed? This condition is diagnosed based on your symptoms and a physical exam. You may have blood and urine tests to help confirm the diagnosis. How is this treated? Treatment for this condition depends on how severe it is. Treatment should be started right away. Do not wait until dehydration becomes severe. Severe dehydration is an emergency and needs to be treated in a hospital. ??? Mild or moderate dehydration can be treated at home. You may be asked to: ? Drink more fluids. ? Drink an oral rehydration solution (ORS). This drink helps restore proper amounts of fluids and salts and minerals in the blood (electrolytes). ??? Severe dehydration can be treated: ? With IV fluids. ? By correcting abnormal levels of electrolytes. This is often done by giving electrolytes through a tube that is passed through your nose and into your stomach (nasogastric tube, or NG tube). ? By treating the underlying cause of dehydration. Follow these instructions at home: Oral rehydration solution If told by your health care provider, drink an ORS: ??? Make an ORS by following instructions on the package. ??? Start by drinking small amounts, about ?? cup (120 mL) every 5???10 minutes. ??? Slowly increase how much you drink until you have taken the amount recommended by your health care provider. Eating and drinking ??? Drink enough clear fluid to keep your urine pale yellow. If you were told to drink an ORS, finish the ORS first and then start slowly drinking other clear fluids. Drink fluids such as: ? Water. Do not drink only water. Doing that can lead to hyponatremia, which is having too little salt (sodium) in the body. ? Water from ice chips you suck on. ? Fruit juice that you have added water to (diluted fruit juice). ? Low-calorie sports drinks. ??? Eat foods that contain a healthy balance of electrolytes, such as bananas, oranges, potatoes, tomatoes, and spinach. ??? Do not drink alcohol. ??? Avoid the following: ? Drinks that contain a lot of sugar. These include high-calorie sports drinks, fruit juice that is not diluted, and soda. ? Caffeine. ? Foods that are greasy or contain a lot of fat or sugar. General instructions ??? Take bjzf-hea-fwzgjaa and prescription medicines only as told by your health care provider. ??? Do not take sodium tablets. Doing that can lead to having too much sodium in the body (hypernatremia). ??? Return to your normal activities as told by your health care provider. Ask your health care provider what activities are safe for you. ??? Keep all follow-up visits as told by your health care provider. This is important. Contact a health care provider if: ??? You have muscle cramps, pain, or discomfort, such as: ? Pain in your abdomen and the pain gets worse or stays in one area (localizes). ? Stiff neck. ??? You have a rash. ??? You are more irritable than usual. ??? You are sleepier or have a harder time waking than usual. ??? You feel weak or dizzy. ??? You feel very thirsty. Get help right away if you have: ??? Any symptoms of severe dehydration. ??? Symptoms of vomiting, such as: ? You cannot eat or drink without vomiting. ? Vomiting gets worse or does not go away. ? Vomit includes blood or green matter (bile). ??? Symptoms that get worse with treatment. ??? A fever. ??? A severe headache. ??? Problems with urination or bowel movements, such as: ? Diarrhea that gets worse or does not go away. ? Blood in your stool (feces). This may cause stool to look black and tarry. ? Not urinating, or urinating only a small amount of very dark urine, within 6???8 hours. ??? Trouble breathing. These symptoms may represent a serious problem that is an emergency. Do not wait to see if the symptoms will go away. Get medical help right away. Call your local emergency services (911 in the [place] Do not drive yourself to the hospital. Summary ??? Dehydration is a condition in which there is not enough water or other fluids in the body. This happens when a person loses more fluids than he or she takes in. ??? Treatment for this condition depends on how severe it is. Treatment should be started right away. Do not wait until dehydration becomes severe. ??? Drink enough clear fluid to keep your urine pale yellow. If you were told to drink an oral rehydration solution (ORS), finish the ORS first and then start slowly drinking other clear fluids. ??? Take afkp-jnt-hvirknp and prescription medicines only as told by your health care provider. ??? Get help right away if you have any symptoms of severe dehydration. This information is not intended to replace advice given to you by your health care provider. Make sure you discuss any questions you have with your health care provider. Document Revised: 05/31/2020 Document Reviewed: 05/31/2020 [employer] Patient Education ?? 2020 [employer] Dehydration, Adult Dehydration is a condition in which there is not enough water or other fluids in the body. This happens when a person loses more fluids than he or she takes in. Important organs, such as the kidneys, brain, and heart, cannot function without a proper amount of fluids. Any loss of fluids from the body can lead to dehydration. Dehydration can be mild, moderate, or severe. It should be treated right away to prevent it from becoming severe. What are the causes? Dehydration may be caused by: ??? Conditions that cause loss of water or other fluids, such as diarrhea, vomiting, or sweating or urinating a lot. ??? Not drinking enough fluids, especially when you are ill or doing activities that require a lot of energy. ??? Other illnesses and conditions, such as fever or infection. ??? Certain medicines, such as medicines that remove excess fluid from the body (diuretics). ??? Lack of safe drinking water. ??? Not being able to get enough water and food. What increases the risk? The following factors may make you more likely to develop this condition: ??? Having a long-term (chronic) illness that has not been treated properly, such as diabetes, heart disease, or kidney disease. ??? Being 65 years of age or older. ??? Having a disability. ??? Living in a place that is high in altitude, where thinner, oven drier tender air causes more fluid loss. ??? Doing exercises that put stress on your body for a long time (endurance sports). What are the signs or symptoms? Symptoms of dehydration depend on how severe it is. Mild or moderate dehydration ??? Thirst. ??? Dry lips or dry mouth. ??? Dizziness or light-headedness, especially when standing up from a seated position. ??? Muscle cramps. ??? Dark urine. Urine may be the color of tea. ??? Less urine or tears produced than usual. ??? Headache. Severe dehydration ??? Changes in skin. Your skin may be cold and clammy, blotchy, or pale. Your skin also may not return to normal after being lightly pinched and released. ??? Little or no tears, urine, or sweat. ??? Changes in vital signs, such as rapid breathing and low blood pressure. Your pulse may be weak or may be faster than 100 beats a minute when you are sitting still. ??? Other changes, such as: ? Feeling very thirsty. ? Sunken eyes. ? Cold hands and feet. ? Confusion. ? Being very tired (lethargic) or having trouble waking from sleep. ? Short-term weight loss. ? Loss of consciousness. How is this diagnosed? This condition is diagnosed based on your symptoms and a physical exam. You may have blood and urine tests to help confirm the diagnosis. How is this treated? Treatment for this condition depends on how severe it is. Treatment should be started right away. Do not wait until dehydration becomes severe. Severe dehydration is an emergency and needs to be treated in a hospital. ??? Mild or moderate dehydration can be treated at home. You may be asked to: ? Drink more fluids. ? Drink an oral rehydration solution (ORS). This drink helps restore proper amounts of fluids and salts and minerals in the blood (electrolytes). ??? Severe dehydration can be treated: ? With IV fluids. ? By correcting abnormal levels of electrolytes. This is often done by giving electrolytes through a tube that is passed through your nose and into your stomach (nasogastric tube, or NG tube). ? By treating the underlying cause of dehydration. Follow these instructions at home: Oral rehydration solution If told by your health care provider, drink an ORS: ??? Make an ORS by following instructions on the package. ??? Start by drinking small amounts, about ?? cup (120 mL) every 5???10 minutes. ??? Slowly increase how much you drink until you have taken the amount recommended by your health care provider. Eating and drinking ??? Drink enough clear fluid to keep your urine pale yellow. If you were told to drink an ORS, finish the ORS first and then start slowly drinking other clear fluids. Drink fluids such as: ? Water. Do not drink only water. Doing that can lead to hyponatremia, which is having too little salt (sodium) in the body. ? Water from ice chips you suck on. ? Fruit juice that you have added water to (diluted fruit juice). ? Low-calorie sports drinks. ??? Eat foods that contain a healthy balance of electrolytes, such as bananas, oranges, potatoes, tomatoes, and spinach. ??? Do not drink alcohol. ??? Avoid the following: ? Drinks that contain a lot of sugar. These include high-calorie sports drinks, fruit juice that is not diluted, and soda. ? Caffeine. ? Foods that are greasy or contain a lot of fat or sugar. General instructions ??? Take smsq-orm-yxwulmd and prescription medicines only as told by your health care provider. ??? Do not take sodium tablets. Doing that can lead to having too much sodium in the body (hypernatremia). ??? Return to your normal activities as told by your health care provider. Ask your health care provider what activities are safe for you. ??? Keep all follow-up visits as told by your health care provider. This is important. Contact a health care provider if: ??? You have muscle cramps, pain, or discomfort, such as: ? Pain in your abdomen and the pain gets worse or stays in one area (localizes). ? Stiff neck. ??? You have a rash. ??? You are more irritable than usual. ??? You are sleepier or have a harder time waking than usual. ??? You feel weak or dizzy. ??? You feel very thirsty. Get help right away if you have: ??? Any symptoms of severe dehydration. ??? Symptoms of vomiting, such as: ? You cannot eat or drink without vomiting. ? Vomiting gets worse or does not go away. ? Vomit includes blood or green matter (bile). ??? Symptoms that get worse with treatment. ??? A fever. ??? A severe headache. ??? Problems with urination or bowel movements, such as: ? Diarrhea that gets worse or does not go away. ? Blood in your stool (feces). This may cause stool to look black and tarry. ? Not urinating, or urinating only a small amount of very dark urine, within 6???8 hours. ??? Trouble breathing. These symptoms may represent a serious problem that is an emergency. Do not wait to see if the symptoms will go away. Get medical help right away. Call your local emergency services (911 in the [place] Do not drive yourself to the hospital. Summary ??? Dehydration is a condition in which there is not enough water or other fluids in the body. This happens when a person loses more fluids than he or she takes in. ??? Treatment for this condition depends on how severe it is. Treatment should be started right away. Do not wait until dehydration becomes severe. ??? Drink enough clear fluid to keep your urine pale yellow. If you were told to drink an oral rehydration solution (ORS), finish the ORS first and then start slowly drinking other clear fluids. ??? Take dcxl-oty-uihyxbg and prescription medicines only as told by your health care provider. ??? Get help right away if you have any symptoms of severe dehydration. This information is not intended to replace advice given to you by your health care provider. Make sure you discuss any questions you have with your health care provider. Document Revised: 05/31/2020 Document Reviewed: 05/31/2020 [employer] Patient Education ?? 2020 [employer]. Acute Kidney Injury, Adult Acute kidney injury is a sudden worsening of kidney function. The kidneys are organs that have several jobs. They filter the blood to remove waste products and extra fluid. They also maintain a healthy balance of minerals and hormones in the body, which helps control blood pressure and keep bones strong. With this condition, your kidneys do not do their jobs as well as they should. This condition ranges from mild to severe. Over time, it may develop into long-lasting (chronic) kidney disease. Early detection and treatment may prevent acute kidney injury from developing into a chronic condition. What are the causes? Common causes of this condition include: ??? A problem with blood flow to the kidneys. This may be caused by: ? Low blood pressure (hypotension) or shock. ? Blood loss. ? Heart and blood vessel (cardiovascular) disease. ? Severe ball. ? Liver disease. ??? Direct damage to the kidneys. This may be caused by: ? Certain medicines. ? A kidney infection. ? Poisoning. ? Being around or in contact with toxic substances. ? A surgical wound. ? A hard, direct hit to the kidney area. ??? A sudden blockage of urine flow. This may be caused by: ? Cancer. ? Kidney stones. ? An enlarged prostate in males. What increases the risk? You are more likely to develop this condition if you: ??? Are older than age 65. ??? Are female. ??? Are hospitalized, especially if you are in critical condition. ??? Have certain conditions, such as: ? Chronic kidney disease. ? Diabetes. ? Coronary artery disease and heart failure. ? Pulmonary disease. ? Chronic liver disease. What are the signs or symptoms? Symptoms of this condition may not be obvious until the condition becomes severe. Symptoms of this condition can include: ??? Tiredness (lethargy) or difficulty staying awake. ??? Nausea or vomiting. ??? Swelling (edema) of the face, legs, ankles, or feet. ??? Problems with urination, such as: ? Pain in the abdomen, or pain along the side of your stomach (flank). ? Producing little or no urine. ? Passing urine with a weak flow. ??? Muscle twitches and cramps, especially in the legs. ??? Confusion or trouble concentrating. ??? Loss of appetite. ??? Fever. How is this diagnosed? Your health care provider can diagnose this condition based on your symptoms, medical history, and a physical exam. You may also have other tests, such as: ??? Blood tests. ??? Urine tests. ??? Imaging tests. ??? A test in which a sample of tissue is removed from the kidneys to be examined under a microscope (kidney biopsy). How is this treated? Treatment for this condition depends on the cause and how severe the condition is. In mild cases, treatment may not be needed. The kidneys may heal on their own. In more severe cases, treatment will involve: ??? Treating the cause of the kidney injury. This may involve changing any medicines you are taking or adjusting your dosage. ??? Fluids. You may need specialized IV fluids to balance your body's needs. ??? Having a catheter placed to drain urine and prevent blockages. ??? Preventing problems from occurring. This may mean avoiding certain medicines or procedures that can cause further injury to the kidneys. In some cases, treatment may also require: ??? A procedure to remove toxic wastes from the body (dialysis or continuous renal replacement therapy, CRRT). ??? Surgery. This may be done to repair a torn kidney or to remove the blockage from the urinary system. Follow these instructions at home: Medicines ??? Take iggb-tai-gcceeoy and prescription medicines only as told by your health care provider. ??? Do not take any new medicines without your health care provider's approval. Many medicines can worsen your kidney damage. ??? Do not take any vitamin and mineral supplements without your health care provider's approval. Many nutritional supplements can worsen your kidney damage. Lifestyle ??? If your health care provider prescribed changes to your diet, follow them. You may need to decrease the amount of protein you eat. ??? Achieve and maintain a healthy weight. If you need help with this, ask your health care provider. ??? Start or continue an exercise plan. Try to exercise at least 30 minutes a day, 5 days a week. ??? Do not use any products that contain nicotine or tobacco, such as cigarettes, e-cigarettes, and chewing tobacco. If you need help quitting, ask your health care provider. General instructions ??? Keep track of your blood pressure. Report changes in your blood pressure as told by your health care provider. ??? Stay up to date with your vaccines. Ask your health care provider which vaccines you need. ??? Keep all follow-up visits as told by your health care provider. This is important. Where to find more information ??? [place] [employer] of Kidney Patients: www.aakp.org ??? National Kidney Foundation: www.kidney.org ??? [place] [employer]: www.akfinc.org ??? Life Options Rehabilitation Program: ? www.lifeoptions.org ? www.kidneyschool.org Contact a health care provider if: ??? Your symptoms get worse. ??? You develop new symptoms. Get help right away if: ??? You develop symptoms of worsening kidney disease, which include: ? Headaches. ? Abnormally dark or light skin. ? Easy bruising. ? Frequent hiccups. ? Chest pain. ? Shortness of breath. ? End of menstruation in women. ? Seizures. ? Confusion or altered mental status. ? Abdominal or back pain. ? Itchiness. ??? You have a fever. ??? Your body is producing less urine. ??? You have pain or bleeding when you urinate. Summary ??? Acute kidney injury is a sudden worsening of kidney function. ??? Acute kidney injury can be caused by problems with blood flow to the kidneys, direct damage to the kidneys, and sudden blockage of urine flow. ??? Symptoms of this condition may not be obvious until it becomes severe. Symptoms may include edema, lethargy, confusion, nausea or vomiting, and problems passing urine. ??? This condition can be diagnosed with blood tests, urine tests, and imaging tests. Sometimes a kidney biopsy is done to diagnose this condition. ??? Treatment for this condition often involves treating the underlying cause. It is treated with fluids, medicines, diet changes, dialysis, or surgery. This information is not intended to replace advice given to you by your health care provider. Make sure you discuss any questions you have with your health care provider. Document Revised: 08/28/2020 Document Reviewed: 08/28/2020 [employer] Patient Education ?? 2020 [employer]. Emergency Awareness and Preventative Care STROKE is an EMERGENCY Every Minute Counts Act FAST and Check for these signs: FACE Does the face look uneven? ARM Does one arm drift down? SPEECH Does their speech sound strange? TIME Call at any sign of stroke Stroke Risk Factors Atrial Fibrillation (irregular heartbeat) Diabetes Family history of stroke Heart Disease Heavy alcohol use High Blood Pressure High Cholesterol Physical inactivity and obesity Smoking Cigarette Smoking The facts are clear, cigarette smoking will shorten your life. Smoking can cause many illnesses along the way. As a healthcare provider, we recommend that you stop smoking. Assistance with quitting is available by contacting 3-340-EOBGFoxteq HoldingsNOW. This is a free resource providing counseling, support, and referral. Or you may contact your personal physician. National Suicide Prevention Lifeline: The National Suicide Prevention Lifeline is a national network of local crisis centers that provides free and confidential emotional support to people in suicidal crisis or emotional distress 24 hours a day, 7 days a week. Don't Wait! Stop a Heart Attack Before it Starts What is a heart attack? A heart attack is damage or to a part of the heart from severely decreased or lack of blood flow to the heart. Over time, arteries can become narrow from the buildup of fat and cholesterol, which is called plaque. The plaque can rupture causing a blood clot to form. When the blood clot forms, the artery can become severely narrowed or completely blocked, causing a heart attack. Heart attack is the leading cause of in the [place]. 85% of muscle damage occurs within the first 2 hours. Delay in the recognition of heart attack symptoms increases the chances of . Know the early symptoms of a heart attack: Nausea Feeling of fullness in chest Jaw Pain Pain that travels down one or both arms Fatigue/being tired Anxiety Back Pain Chest pressure, squeezing, or discomfort Shortness of breath Sweating, or a cold sweat Feeling of impending doom There are unusual signs of a heart attack, too! Women, the elderly, and diabetics may present with atypical symptoms: Fainting/dizziness Weakness Confusion Risk Factors for a Heart Attack Some heart disease risk factors, such as age and family history, cannot be changed. Others, like smoking and lack of exercise, can be changed. Smoking High Cholesterol High Blood Pressure Family History Obesity Age Gender (Males are at higher risk) Lack of Exercise Diabetes Diet Stress Excessive Alcohol Intake If you or someone you know is experiencing the signs and symptoms of a heart attack, DON???T DELAY. Call immediately and seek help. If someone collapses, perform CPR! Do not attempt to drive if you are having symptoms of heart attack. Hands-Only CPR Why Hands-Only CPR? Hands-Only CPR has been shown to be as effective as conventional CPR for cardiac arrests that occur outside of a hospital. Survival depends on immediately receiving CPR from someone nearby. How do you perform Hands-Only CPR? There are two easy steps: Call if you see a teen or adult collapse Push hard and fast in the center of the chest at a beat of 100 beats per minute. Save a life! 4 WAYS TO GET AHEAD OF SEPSIS SEPSIS is a MEDICAL EMERGENCY. Time matters! Infections put you and your family at risk for a life-threatening condition called sepsis. Sepsis is the body's extreme response to an infection. It is life-threatening, and without timely treatment, sepsis can rapidly lead to tissue damage, organ failure, and . Sepsis happens when an infection you already have-in your skin, lungs, urinary tract or somewhere else-triggers a chain reaction throughout your body. 1 PREVENT INFECTIONS Take good care of chronic conditions. Talk to your doctor about getting the recommended vaccines. 2 PRACTICE GOOD HYGIENE Wash your hands frequently. Keep cuts or open sores clean and covered until they are healed. 3 KNOW THE SYMPTOMS Confusion or disorientation Shortness of breath High heart rate Fever, shivering, or feeling very cold Extreme pain or discomfort Clammy or sweaty skin 4 ACT FAST Get medical care IMMEDIATELY if you suspect sepsis or if you have an infection that is not getting better or is getting worse. To learn more about sepsis and how to prevent infections, visit www.cdc.gov/sepsis. Test Results Laboratory or Other Results This Visit (last charted value for your 01/08/2022 visit) Hematology 01/09/2022 4:50 AM WBC: 9.8 K/uL -- Normal range between ( 3.6 and 9.5 ) RBC: 4.77 Million/uL -- Normal range between ( 4.20 and 5.70 ) Hct: 42.4 % -- Normal range between ( 40.1 and 51.0 ) Hgb: 14.9 g/dL -- Normal range between ( 13.5 and 17.3 ) Platelet Count: 283 K/uL -- Normal range between ( 163 and 369 ) MCH: 31.2 pg -- Normal range between ( 25.6 and 32.2 ) MCHC: 35.1 Gram/dL -- Normal range between ( 32.2 and 36.5 ) MCV: 88.9 fL -- Normal range between ( 79.0 and 94.8 ) Slide Review: Add Diff Man ALYC #: 2 K/uL Band Percent Man: 8 % -- Normal range between ( 5 and 11 ) RBC Morphology: Normal RDW: 12.6 % -- Normal range between ( 11.7 and 14.9 ) ANC #: 6 K/uL [place] Percent Man: 18 % -- Normal range between ( 4 and 5 ) Baso Percent Man: 1 % -- Normal range between ( 0 and 1 ) Neutrophil Percent Man: 52 % -- Normal range between ( 50 and 65 ) Eos Percent Man: 1 % -- Normal range between ( 0 and 3 ) Platelet Ct Estimate: Adequate MPV: 10.3 fL -- Normal range between ( 9.4 and 12.4 ) Lymph Percent Man: 20 % -- Normal range between ( 24 and 44 ) Urinalysis 01/08/2022 6:28 AM Ur RBC: 2-5 /HPF Urine Nitrite: Negative Urine Leukocyte Esterase: Negative Urine Appearance: Clear Urine Glucose Dipstick: Negative Urine Blood Dipstick: Moderate Urine Urobilinogen Dipstick: 0.2 EU/dL Urine Protein Dipstick: Trace Urine Color: Yellow Ur WBC: None Seen /HPF Urine Ketones Dipstick: Negative Urine pH Dipstick: 5.5 -- Normal range between ( 6.0 and 8.0 ) Ur Hyaline Casts: 0-2 /LPF Urine Bilirubin Dipstick: Negative Urine Specific Asher: 1.017 -- Normal range between ( 1.005 and 1.030 ) Urine Type.: U CleanCatch Urine Culture if Indicated: Not Indicated 01/08/2022 1:35 AM Ur Epithelial Cells: 0-2 /HPF Ur Mucous: 1+ Microbiology 01/08/2022 6:26 AM SARS-CoV-2 (COVID19 PCR): Negative General Chemistry 01/09/2022 10:54 AM Glucose POC2: 132 mg/dL -- Normal range between ( 70 and 110 ) Device Comment 1: Device Comment 1 01/09/2022 4:50 AM Creatinine Level: 1.40 mg/dL -- Normal range between ( 0.70 and 1.30 ) Sodium Level: 139 mmol/L -- Normal range between ( 136 and 146 ) Potassium Level: 3.2 mmol/L -- Normal range between ( 3.5 and 5.1 ) Chloride Level: 107 mmol/L -- Normal range between ( 102 and 112 ) Carbon Dioxide Level: 23 mmol/L -- Normal range between ( 21 and 32 ) Anion Gap: 12 -- Normal range between ( 9 and 20 ) Bun/Creatinine: 53.6 -- Normal range between ( 8.0 and 20.0 ) Calcium Level: 7.7 mg/dL -- Normal range between ( 8.4 and 10.1 ) eGFR : 59 mL/min/1.73m2 eGFR NonAfrican: 49 mL/min/1.73m2 Glucose Level: 121 mg/dL -- Normal range between ( 74 and 106 ) Blood Urea Nitrogen: 75 mg/dL -- Normal range between ( 7 and 22 ) 01/08/2022 6:14 AM Lactic Acid Level: 1.2 mmol/L -- Normal range between ( 0.4 and 2.0 ) 01/08/2022 6:01 AM Bilirubin Total: 0.6 mg/dL -- Normal range between ( 0.2 and 1.2 ) A/G Ratio: 0.8 -- Normal range between ( 1.1 and 2.5 ) ALT: 49 Units/Liter -- Normal range between ( 16 and 61 ) AST: 27 Units/Liter -- Normal range between ( 5 and 37 ) Globulin: 3.6 Gram/dL -- Normal range between ( 1.5 and 4.5 ) Alk Phos: 55 Units/Liter -- Normal range between ( 27 and 136 ) Phosphorus: 4.9 mg/dL -- Normal range between ( 2.5 and 4.9 ) Protein Total: 6.6 Gram/dL -- Normal range between ( 6.4 and 8.2 ) Albumin Level: 3.0 Gram/dL -- Normal range between ( 3.4 and 5.0 ) 01/07/2022 11:05 PM Magnesium Level: 1.8 mg/dL -- Normal range between ( 1.5 and 2.4 ) Endocrinology 01/08/2022 6:01 AM TSH: 1.980 mcInt Units/mL -- Normal range between ( 0.358 and 3.740 ) Computed Tomography 01/08/2022 8:[address] Abdomen Pelvis WO: CT Abdomen Pelvis WO Ultrasound 01/08/2022 8:45 AM US Renal Comp: US Renal Comp Vascular Ultrasound 01/09/2022 9:53 AM VL Renal Duplex RT: VL Renal Duplex RT Patient Name:SCOTTIE CURRAN ERIKA I have received and understand this information and was given the opportunity to ask questions. Patient/Campus President Name: Patient/Campus President Signature: Relationship to Patient: Clinician/Hospital Campus President Signature: Date: Electronically signed by Interface, [facility] Conversion Entry Level Account Representative Cerner at 02/16/2023 4:08 PM CDT documented in this encounter Plan of Treatment Upcoming Encounters Date Type Department Care Team (Late st Contact Info) Description 03/10/2025 1:15 PM EDT Office Visit [facility] Cardiology - [place] [address] [place] [address] Tabby Mcallister PA-C [address] [facility] [address] [place] [address] documented as of this encounter Visit Diagnoses Not on filedocumented in this encounter Care Teams Water Resource Engineering Specialist Relationship Specialty Start Date End Date Sudhir Payton PA PCP - General 03/02/23 documented as of this encounter
--- OUTSIDE RECORDS SUMMARY | 2024-09-30 17:08 | XMS_ITS | Encounter Summary ---
Author Organization for[MD] In iatives Address [address] [facility] [place] [address] Care Team Providers Care Airline Pilot Name Role Phone Stacy Moise Primary Care Provider [phone] Encounter Details Date Type Department Care Team (Late st Contact Info) Description 01/09/2022 Historic [facility]counter [facility] [address] [place] [address] ProviderJuan Historical Social History Tobacco [...] Description 03/10/2025 1:15 PM EDT Office Visit [facility] Cardiology - [place] [address] [place] [address] Tabby Mcallister PA-C [address] [place] [address] [address] [place] [address] documented as of this encounter Procedures Procedure Name Priority Date/Time Associated Diagnosis Comments AMINTA IFA SCREEN W/REFL TO TITER AND PATTERN, IFA Routine 01/09/2022 4:50 AM EST documented in this encounter Results * AMINTA IFA SCREEN W/REFL TO TITER AND PATTERN, IFA (01/09/2022 4:50 AM EST) AMINTA Negative 01/11/2022 10:08 PM EST Comment: ? Negative ?? <1:80 ? Borderline ??1:80 ? Positive ?? >1:80 ICAP nomenclature: AC-0 For more information about Hep-2 cell patterns use ANApatterns.org, the official website for the International Consensus on Antinuclear Antibody (AMINTA) Patterns (ICAP). Performed At: [facility] [id number] Dorothy Ortega PhD Ph:[phone] Blood 01/09/2022 4:50 AM EST 01/09/2022 10:09 AM EST Sle Historical Provider PATHOLOGY/CYTOLOGY [facility]DE [facility] Final Result [facility] [address] [phone] documented in this encounter Visit Diagnoses Not on filedocumented in this encounter Care Teams Airline Pilot Relationship Specialty Start Date End Date Stacy Moise PA PCP - General 03/02/23 documented as of this encounter
--- OUTSIDE RECORDS SUMMARY | 2024-09-30 17:08 | XMS_ITS | Encounter Summary ---
Author Organization [employer] In iatives Address [address] [facility] [place] [address] Care Team Providers Care Water Purification Chemist Name Role Phone Stacy Moise Primary Care Provider [phone] Encounter Details Date Type Department Care Team (Late st Contact Info) Description 01/09/2022 Transcribed Document [facility] [place] [address] ProviderMireya MD [address] [place] [id number] Social History Tobacco Use Types Packs/Day Years Used Date Smoking Tobacco: Never Assessed Sex and Gender Information Value Date Recorded Sex Assigned at Not on file Legal Sex Male 5:25 PM CDT Gender Identity Not on file Sexual Orientation Not on file documented as of this encounter Miscellaneous Notes * Cerner Conversion Note - Historical ProviderMD - 01/09/2022 2:27 PM DATA SCIENTIST Discharge Summary, OT Entered On: 01/09/2022 14:28 EST Performed On: 01/09/2022 14:27 EST by CARROLL BARNETT OTR/Terri Discharge Summary, OT Discharge Summary Provider Notified : Physical Therapy Reason for Discharge : Other: Pt is independent. Discharged to, Therapy : Home, independently, Home, with family care Discharge Equipment OT : None Discharge Summary Comment, OT : Pt is fully independent in all ADLs and functional mobility. CARROLL BARNETT OTR/Terri - 01/09/2022 14:27 EST Residential Goals, OT Grooming LTG Grid Goal #1 Activity : Grooming Assist : Independent, complete Date to Meet : 01/22/2022 EDT Goal Status : Discontinue CARROLL BARNETT OTR/L - 01/09/2022 14:27 EST Dressing, Lower Body LTG Grid Goal #1 Activity : Dressing, Lower Body Assist : Independent, complete Date to Meet : 01/22/2022 EDT Goal Status : Goal met Date Met : 01/09/2022 EST BARNETTCARROLL, OTR/L - 01/09/2022 14:27 EST Toilet Transfer LTG Grid Goal #1 Activity : Toilet Transfer, Ambulatory Assist : Independent, complete Date to Meet : 01/22/2022 EDT Goal Status : Goal met Date Met : 01/09/2022 EST BARNETTCARROLL, OTR/L - 01/09/2022 14:27 EST Electronically signed by [facility], [facility] Conversion Innersole Maker Cerner at 02/16/2023 4:13 PM CDT documented in this encounter Plan of Treatment Upcoming Encounters Date Type Department Care Team (Late st Contact Info) Description 03/10/2025 1:15 PM EDT Office Visit [facility] Cardiology - [place] [address] [place] [address] Tabby Mcallister PA-C [address] [address] documented as of this encounter Visit Diagnoses Not on filedocumented in this encounter Care Teams Water Purification Chemist Relationship Specialty Start Date End Date Stacy Moise PA PCP - General 03/02/23 documented as of this encounter
--- OUTSIDE RECORDS SUMMARY | 2024-09-30 17:08 | XMS_ITS | Encounter Summary ---
Author Organization [employer] In iatives Address [address] [place] [address] Care Team Providers Care Commercial Specialist Name Role Phone Stacy Moise Primary Care Provider [phone] Encounter Details Date Type Department Care Team (Late st Contact Info) Description 06/14/2024 Orders Only [address] [address] Tabby Mcallister PA-C [address] [place] [address] Hyperlipidemia, unspecified hyperlipidemia type Social History Tobacco Use Types Packs/Day [...] Description 03/10/2025 1:15 PM EDT Office Visit [address] [address] Tabby Mcallister PA-C [address] [place] [address] documented as of this encounter Visit Diagnoses Diagnosis Hyperlipidemia, unspecified hyperlipidemia type documented in this encounter Care Teams Commercial Specialist Relationship Specialty Start Date End Date Stacy Moise PA PCP - General 03/02/23 documented as of this encounter
--- OUTSIDE RECORDS SUMMARY | 2024-09-30 17:08 | XMS_ITS | Encounter Summary ---
Author Organization [employer] Address [address] [place] [address] Care Team Providers Care Donor Relations Coordinator Name Role Phone Stacy Moise Primary Care Provider [phone] Encounter Details Date Type Department Care Team (Late st Contact Info) Description 01/09/2022 Historic Encounter [facility] [address] [place] [address] ProviderJuan Historical Social History Tobacco [...] Description 03/10/2025 1:15 PM EDT Office Visit [facility] Cardiology - [place] [address] [place] [address] Tabby Mcallister PA-C [address] [place] [address] [address] [place] [address] documented as of this encounter Procedures Procedure Name Priority Date/Time Associated Diagnosis Comments GLUCOSE-POC Routine 01/09/2022 5:52 AM EST documented in this encounter Results * (ABNORMAL) Glucose, Point of Care (01/09/2022 5:52 AM EST) Glucose POC2 123(H) 70 - 110 mg/dL 01/09/2022 10:52 AM EST [facility] Clock Assembler [id number] 01/09/2022 10:52 AM EST [facility] Device SN [id number] 01/09/2022 10:52 AM EST [facility] Device Comment1 Notified Nurse RBV 01/09/2022 10:52 AM EST [facility] Blood 01/09/2022 5:52 AM EST 01/09/2022 10:54 AM EST [facility] Historical Provider POINT OF CARE TEST ORDE LORRAINE Final Result [facility] [address] [phone] documented in this encounter Visit Diagnoses Not on filedocumented in this encounter Care Teams Donor Relations Coordinator Relationship Specialty Start Date End Date Stacy Moise PA PCP - General 03/02/23 documented as of this encounter
--- OUTSIDE RECORDS SUMMARY | 2024-09-30 17:08 | XMS_ITS | Encounter Summary ---
Author Organization [employer] In iatives Address [address] [facility] [place] [address] Care Team Providers Care Demo Event Specialist Name Role Phone Stacy Moise Primary Care Provider [phone] Encounter Details Date Type Department Care Team (Late Contact Info) Description 01/12/[address] [facility] Cardiology - [place] [address] [place] [address] Boubacar Art CMA PVD (peripheral vascular disease) (HCC) Social History Tobacco Use Types Packs/Day Years [...] Description 03/10/2025 1:15 PM EDT Office Visit [facility] Cardiology - [place] [address] [place] [address] Tabby Mcallister PA-C [address] [facility] [address] [place] [address] documented as of this encounter Visit Diagnoses Diagnosis PVD (peripheral vascular disease) (HCC) Unspecified peripheral vascular disease documented in this encounter Care Teams Demo Event Specialist Relationship Specialty Start Date End Date Stacy Moise PA PCP - General 03/02/23 documented as of this encounter
--- OUTSIDE RECORDS SUMMARY | 2024-09-30 17:08 | XMS_ITS | Encounter Summary ---
Author Organization [facility] [employer] In iatives Address [address] [facility] [place] [address] Care Team Providers Care Channel Rebuilder Name Role Phone Stacy Moise Primary Care Provider [phone] Encounter Details Date Type Department Care Team (Late st Contact Info) Description 01/09/2022 Historic Encounter [facility] [address] [place] [address] ProviderJuan Historical Social History Tobacco [...] Office Visit [facility] Cardiology - [place] [address] [place] [address] Tabby Mcallister PA-C [address] [place] [address] [address] [place] [address] documented as of this encounter Procedures Procedure Name Priority Date/Time Associated Diagnosis Comments DIFFERENTIAL MANUAL ([facility] BKR DATA CONV) Routine 01/09/2022 4:50 AM EST documented in this encounter Results * (ABNORMAL) DIFFERENTIAL MANUAL ([facility] BKR DATA CONV) (01/09/2022 4:50 AM EST) RBC Morphology Normal 01/09/2022 1:[address] Estimate Adequate Adequate 01/09/2022 1:49 PM EST Neutrophil Percent Man 52 50 - 65 % 01/09/2022 1:49 PM EST Band Percent Man 8 5 - 11 % 01/09/2022 1:49 PM EST Lymph Percent Man 20(L) 24 - 44 % 01/09/2022 1:49 PM EST [place] Percent Man 18(H) 4 - 5 % 01/09/2022 1:49 PM EST Eos Percent Man 1 0 - 3 % 1:49 PM EST Baso Percent Man 1 0 - 1 % 01/09/2022 1:49 PM EST ANC# 6 K/uL 01/09/2022 1:49 PM EST ALYC# 2 K/uL 01/09/2022 1:49 PM EST Blood 01/09/2022 4:50 AM EST 01/09/2022 10:07 AM EST Narrative [facility] - 01/09/2022 1:49 PM EST Ordered By Discern Expert Rule Sle Historical Provider LAB BLOOD ORDERABLES Fi nal Result [facility] [address] [phone] documented in this encounter Visit Diagnoses Not on filedocumented in this encounter Care Teams Channel Rebuilder Relationship Specialty Start Date End Date Stacy Moise PA PCP - General 03/02/23 documented as of this encounter
--- OUTSIDE RECORDS SUMMARY | 2024-09-30 17:08 | XMS_ITS | Encounter Summary ---
Author Organization [employer] In iatives Address [address] [place] [address] Care Team Providers Care Store Merchandiser Name Role Phone Stacy Moise Primary Care Provider [phone] Encounter Details Date Type Department Care Team (Late st Contact Info) Description 07/20/2024 Orders Only [address] [address] Tabby Mcallister PA-C [facility] [address] [address] Hypertension, unspecified type Social History Tobacco [...] Description 03/10/2025 1:15 PM EDT Office Visit [address] [address] Tabby Mcallister PA-C [address] [place] [address] documented as of this encounter Visit Diagnoses Diagnosis Hypertension, unspecified type documented in this encounter Care Teams Store Merchandiser Relationship Specialty Start Date End Date Stacy Moise PA PCP - General 03/02/23 documented as of this encounter
--- OUTSIDE RECORDS SUMMARY | 2024-09-30 17:08 | XMS_ITS | Encounter Summary ---
Author Organization [employer] Address [address] [place] [address] Care Team Providers Care Sandblast Carver Name Role Phone Stacy Moise Primary Care Provider [phone] Encounter Details Date Type Department Care Team (Late st Contact Info) Description 01/09/2022 Transcribed Document [facility] [place] [facility] [place] [address] ProviderMireya MD [address] [place] [address] [id number] Social History Tobacco Use Types Packs/Day Years Used Date Smoking Tobacco: Never Assessed Sex and Gender Information Value Date Recorded Sex Assigned at Not on file Legal Sex Male 5:25 PM CDT Gender Identity Not on file Sexual Orientation Not on file documented as of this encounter Miscellaneous Notes * Cerner Conversion Note - Mireya Osuna MD - 01/09/2022 9:08 AM EDUCATIONAL THERAPIST On Going Discharge Planning Entered On: 01/09/2022 9:12 EST Performed On: 01/09/2022 9:08 EST by Nia William V, Sales And Marketing Administrator Sales Audit Clerk Care Management Progress Note Discharge Arrangements : Patient Post-Acute Information Patient Name: SCOTTIE CURRAN Gender: Male : 41 Age: 76 Years No Post-Acute Placement(s) Listed No Post-Acute Service(s) Listed No Curaspan Referral(s) Listed Discharge Options Discussed with Patient : DME, Home Health, Short term rehabilitation Barriers to Discharge Identified : Clinical Condition of Patient, Follow-Up appointments needed Patient Discharge Goal : Home Is the Patient Meeting Medical Necessity : Yes Physician Agreeable to Move Forward with D/C Plan? : Yes Did you Attend Multidisciplinary Rounds? : Yes Nia William V, Sales And Marketing Administrator Sales Audit Clerk - 01/09/2022 9:08 EST Narrative Progress Note Narrative Progress Note : HD#1, ELOS-not reported yet RRa-high Admitted for MONIQUE-Nephrology consulted. Cr on admission 3.7 > improved to 2.4 after hydration. Hyponatremia and hypokalemia improving with hydration. UA + for blood. Cont with IVF with strict I/O. DCP-home with family care. No therapy needs. Nia William V Sales And Marketing Administrator Sales Audit Clerk - 01/09/2022 9:08 EST Electronically signed by [facility] Conversion Superintendent [employer] Mill Cerner at 02/16/2023 4:01 PM CDT documented in this encounter Plan of Treatment Upcoming Encounters Date Type Department Care Team (Late st Contact Info) Description 03/10/2025 1:15 PM EDT Office Visit [facility] Cardiology - [place] [address] [place] [address] Tabby Mcallister PA-C [address] [address] documented as of this encounter Visit Diagnoses Not on filedocumented in this encounter Care Teams Sandblast Carver Relationship Specialty Start Date End Date Stacy Moise PA PCP - General 03/02/23 documented as of this encounter
--- OUTSIDE RECORDS SUMMARY | 2024-09-30 17:08 | XMS_ITS | Encounter Summary ---
Author Organization [facility] [employer] Address [address] [place] [address] Care Team Providers Care Director Of Critical Care Name Role Phone Stacy Moise Primary Care Provider [phone] Encounter Details Date Type Department Care Team (Late st Contact Info) Description 01/09/2022 Historic Encounter [facility] [address] [place] [address] ProviderJuan Historical Social History Tobacco [...] Description 03/10/2025 1:15 PM EDT Office Visit [facility] Cardiology - [place] [address] [place] [address] Tabby Mcallister PA-C [address] [place] [address] [address] [place] [address] documented as of this encounter Procedures Procedure Name Priority Date/Time Associated Diagnosis Comments CBC W/ AUTO DIFF ([facility] DATA CONV) Routine 01/09/2022 4:50 AM EST documented in this encounter Results * (ABNORMAL) CBC W/ AUTO DIFF ([facility]KR DATA CONV) (01/09/2022 4:50 AM EST) WBC 9.8(H) 3.6 - 9.5 K/uL 01/09/2022 10:12 AM EST RBC 4.77 4.20 - 5.70 Million/uL 01/09/2022 10:12 AM EST Hgb 14.9 13.5 - 17.3 g/dL 01/09/2022 10:12 AM EST Hct 42.4 40.1 - 51.0 % 01/09/2022 10:12 AM EST MCV 88.9 79.0 - 94.8 fL 01/09/2022 10:12 AM EST MCH 31.2 25.6 - 32.2 pg 01/09/2022 10:12 AM EST MCHC 35.1 32.2 - 36.5 Gram/dL 01/09/2022 10:12 AM EST RDW 12.6 11.7 - 14.9 % 01/09/2022 10:12 AM EST Platelet Count 283 163 - 369 K/uL 01/09/2022 10:12 AM EST MPV 10.3 9.4 - 12.4 fL 01/09/2022 10:12 AM EST Slide Review Add Diff Man 01/09/2022 1:39 PM EST Blood 01/09/2022 4:50 AM EST 01/09/2022 10:07 AM EST [facility] Historical Provider LAB BLOOD ORDERABLES Fi nal Result [facility] [address] [place] [address], [facility] [phone] documented in this encounter Visit Diagnoses Not on filedocumented in this encounter Care Teams Director Of Critical Care Relationship Specialty Start Date End Date Stacy Moise PA PCP - General 03/02/23 documented as of this encounter
--- OUTSIDE RECORDS SUMMARY | 2024-09-30 17:08 | XMS_ITS | Encounter Summary ---
Author Organization [employer] Address [address] [place] [address] Care Team Providers Care Funeral Service Apprentice Name Role Phone Stacy Moise Primary Care Provider [phone] Encounter Details Date Type Department Care Team (Late st Contact Info) Description 01/09/2022 Historic Encounter [facility] [address] [place] [address] ProviderJuan Historical Social History Tobacco [...] Description 03/10/2025 1:15 PM EDT Office Visit [facility] Cardiology - [place] [address] [place] [address] Tabby Mcallister PA-C [address] [place] [address] [address] [place] [address] documented as of this encounter Procedures Procedure Name Priority Date/Time Associated Diagnosis Comments PROTEIN ELECTROPHORESIS, SERUM Routine 01/09/2022 4:50 AM EST documented in this encounter Results * (ABNORMAL) PROTEIN ELECTROPHORESIS, SERUM (01/09/2022 4:50 AM EST) Protein, Total 6.8 6.0 - 8.5 g/dL 01/10/2022 8:10 PM EST Albumin, Serum 3.5 2.9 - 4.4 g/dL 01/10/2022 8:10 PM EST Alpha1, Serum 0.3 0.0 - 0.4 g/dL 01/10/2022 8:10 PM EST Alpha2, Serum 1.3(H) 0.4 - 1.0 g/dL 01/10/2022 8:10 PM EST SPE Beta Globulin 0.9 0.7 - 1.3 g/dL 01/10/2022 8:10 PM EST Gamma, Serum 0.8 0.4 - 1.8 g/dL 01/10/2022 8:10 PM EST MSpike Not Observed Not Observed g/dL 01/10/2022 8:10 PM EST SPE Globulin, Total 3.3 2.2 - 3.9 g/dL 01/10/2022 8:10 PM EST SPE A/G Ratio 1.1 0.7 - 1.7 01/10/2022 8:10 PM EST Interpretation, Serum Comment 01/10/2022 8:10 PM EST Comment: The SPE pattern demonstrates elevation of regions containing acute phase proteins suggesting an acute/subacute inflammatory response. Some conditions in which this pattern has been observed include: bacterial, viral or parasitic infection; mechanical, physical or chemical trauma; and cardiac failure. The gamma globulin region is unremarkable and evidence of monoclonal protein is not apparent. Performed At: [address] [id number] Dorothy Ortega PhD Ph:[phone] SPE Note Comment 01/10/2022 8:10 PM EST Comment: Protein electrophoresis scan will follow via computer, mail, or wagon driver delivery. Blood 01/09/2022 4:50 AM EST 01/09/2022 10:09 AM EST [facility] Historical Provider PATHOLOGY/CYTOLOGY MICHAEL PETERS Final Result [facility] [address] [phone] documented in this encounter Visit Diagnoses Not on filedocumented in this encounter Care Teams Funeral Service Apprentice Relationship Specialty Start Date End Date Stacy Moise PA PCP - General 03/02/23 documented as of this encounter
--- OUTSIDE RECORDS SUMMARY | 2024-09-30 17:08 | XMS_ITS | Encounter Summary ---
Author Organization [employer] Address [address] [place] [address] Care Team Providers Care Data Analytics Developer Name Role Phone Stacy Moise Primary Care Provider [phone] Reason for Visit * Reason Comments Medication Refill Encounter Details Date Type Department Care Team (Late st Contact Info) Description 12/09/2023 Refill [facility] Cardiology [address] [address] Wellington Brown MD [address] [facility] [address] [place] [address] Social History Tobacco Use Types Packs/Day Years [...] Description 03/10/2025 1:15 PM EDT Office Visit [facility] [address] [place] [address] Tabby Mcallister PA-C 227 [facility] [place] [address] [place] [address] documented as of this encounter Visit Diagnoses Not on filedocumented in this encounter Care Teams Data Analytics Developer Relationship Specialty Start Date End Date Stacy Moise PA PCP - General 03/02/23 documented as of this encounter
--- OUTSIDE RECORDS SUMMARY | 2024-09-30 17:08 | XMS_ITS | Referral Summary ---
Author Organization [employer] Address [address] [place] [address] Care Team Providers Care Photolithographic Stripper Name Role Phone Stacy Moise Primary Care Provider [phone] Encounters Date Type Department Care Team Description 09/09/2024 1:00 PM EST Office Visit [address] [address] Merlin, Tabby, PA-C Hypertension, unspecified type (Primary Dx); ASHD (arteriosclerotic heart disease) 08/08/2024 Orders Only [address] [address] Merlin, Tabby, PA-C Hypertension, unspecified type 07/20/2024 Orders Only [address] [address] Merlin, Tabby, PA-C Hypertension, unspecified type 07/13/2024 Orders Only [address] [address] Merlin, Tabby, PA-C Hypertension (Primary Dx) from Last 3 Months Allergies No known active allergies Medications cloNIDine [...] 40 MG tabletIndications:C oronary artery disease involving [place] coronary artery of [place] heart without angina pectoris Take 1 tablet [...] Presbyopia 02/27/2023 PVD (peripheral vascular disease) 02/27/2023 Social History Tobacco Use Types Packs/Day Years [...] Description 03/10/2025 1:15 PM EDT Office Visit [facility] Cardiology - [place] [address] [place] [address] Tabby Mcallister PA-C [address] [place] [address] [facility] [place] [address] Procedures Procedure Name Priority Date/Time Associated Diagnosis Comments FS_MODEL_IP_ECG 12-LEAD Routine 09/09/2024 3:05 PM EST Hypertension, unspecified type from Last 3 Months Results * ECG 12 lead (09/09/2024 3:05 PM EST) us Tabby Mcallister PA-C ECG ORDERABLES Final Result from Last 3 Months Insurance [id number] Care Teams Photolithographic Stripper Relationship Specialty Start Date End Date Stacy Moise PA PCP - General 03/02/23
--- OUTSIDE RECORDS SUMMARY | 2024-09-30 17:08 | XMS_ITS | Encounter Summary ---
Author Organization [employer] Address [address] [place] [id number] Care Team Providers Care Plate Maker Zinc Name Role Phone Stacy Moise Primary Care Provider [phone] Encounter Details Date Type Department Care Team (Late st Contact Info) Description 01/09/2022 Transcribed Document [facility] [place] [facility] [place] [address] ProviderMireya MD [address] [place] [id number] Social History Tobacco Use Types Packs/Day Years Used Date Smoking Tobacco: Never Assessed Sex and Gender Information Value Date Recorded Sex Assigned at Not on file Legal Sex Male 5:25 PM CDT Gender Identity Not on file Sexual Orientation Not on file documented as of this encounter Miscellaneous Notes * Cerner Conversion Note - Mireya ProviderMD - 01/09/2022 1:07 PM COLLISION CENTER MANAGER UM Authorization Entered On: 01/09/2022 13:07 EST Performed On: 01/09/2022 13:07 EST by AMELIA SPARKS RN Primary Insurance Authorization Authorization and Policy Numbers : Insurance 1 Health Plan: MEDICARE Policy Number: [id number] Authorization Number: Insurance 2 Health Plan: [employer] Policy Number: [id number] Authorization Number: Insurance Primary Name : Health Plan: MEDICARE Policy Number: [id number] Authorized Service Begin Date-Primary : 01/08/2022 EST Historical Authorization Comments-Primary : No Authorization Comments Found AMELIA SPARKS RN - 01/09/2022 13:07 EST documented in this encounter Plan of Treatment Upcoming Encounters Date Type Department Care Team (Late st Contact Info) Description 03/10/2025 1:15 PM EDT Office Visit [facility] Cardiology - [place] [address] [place] [address] Tabby Mcallister PA-C [address] [facility] [address] [place] [address] documented as of this encounter Visit Diagnoses Not on filedocumented in this encounter Care Teams Plate Maker Zinc Relationship Specialty Start Date End Date Stacy Moise PA PCP - General 03/02/23 documented as of this encounter
--- OUTSIDE RECORDS SUMMARY | 2024-09-30 17:08 | XMS_ITS | Encounter Summary ---
Author Organization [employer] Address [address] [facility] [place] [address] Care Team Providers Care Fat Pressroom Worker Name Role Phone Stacy Moise Primary Care Provider [phone] Encounter Details Date Type Department Care Team (Late st Contact Info) Description 06/10/2024 Orders Only [facility] [address] [place] [address] Boubacar Art, ONLINE MERCHANDISER Hyperlipidemia, unspecified hyperlipidemia type Social History Tobacco [...] Description 03/10/2025 1:15 PM EDT Office Visit [facility] [address] [place] [address] Tabby Mcallister PA-C 227 [facility] [address] [place] [address] documented as of this encounter Visit Diagnoses Diagnosis Hyperlipidemia, unspecified hyperlipidemia type documented in this encounter Care Teams Fat Pressroom Worker Relationship Specialty Start Date End Date Stacy Moise PA PCP - General 03/02/23 documented as of this encounter
--- OUTSIDE RECORDS SUMMARY | 2024-09-30 17:08 | XMS_ITS | Encounter Summary ---
Author Organization [employer] Address [address] [place] [address] Care Team Providers Care Biochemist Name Role Phone Stacy Moise Primary Care Provider [phone] Encounter Details Date Type Department Care Team (Late st Contact Info) Description 01/09/2022 Transcribed Document [facility] [place] [facility] [place] [address] ProviderMireya MD [address] [place] [address] [phone] Social History Tobacco Use Types Packs/Day Years Used Date Smoking Tobacco: Never Assessed Sex and Gender Information Value Date Recorded Sex Assigned at Not on file Legal Sex Male 5:25 PM CDT Gender Identity Not on file Sexual Orientation Not on file documented as of this encounter Miscellaneous Notes * Cerner Conversion Note - Mireya Osuna MD - 01/09/2022 3:13 PM SUPERVISOR WOOD CREW Patient Education Materials Follows: Dehydration, Adult Dehydration is a condition in [...] that is high in altitude, where thinner, tunnel drier operator air causes more fluid loss. ??? Doing [...] ??? Start by drinking small amounts, about ? cup (120 mL) every 5?10 minutes. ??? Slowly increase how much you [...] fat or sugar. General instructions ??? Take kpic-jkq-xipoufu and prescription medicines only as told by [...] small amount of very dark urine, within 6?8 hours. ??? Trouble breathing. These symptoms may [...] slowly drinking other clear fluids. ??? Take gzuv-xqw-lzatpya and prescription medicines only as told by your health care provider. ??? Get help right away if you have any symptoms of severe dehydration. This information is not intended to replace advice given to you by your health care provider. Make sure you discuss any questions you have with your health care provider. Document Revised: 05/31/2020 Document Reviewed: 05/31/2020 [employer] Patient Education ? 2020 [employer]. Nephrology Acute Kidney Injury, Adult Acute kidney injury [...] these instructions at home: Medicines ??? Take jitz-qws-udqovsk and prescription medicines only as told by [...] important. Where to find more information ??? [place] Association of Kidney Patients: www.aakp.org ??? National Kidney Foundation: www.kidney.org ??? [place] [employer] Fund: www.akfinc.org ??? [employer] Rehabilitation [...] provider. Document Revised: 08/28/2020 Document Reviewed: 08/28/2020 Elsevier Patient Education ? 2020 [employer] Nutrition Dehydration, Adult Dehydration is a condition in [...] that is high in altitude, where thinner, tunnel drier operator air causes more fluid loss. ??? Doing [...] ??? Start by drinking small amounts, about ? cup (120 mL) every 5?10 minutes. ??? Slowly increase how much you [...] fat or sugar. General instructions ??? Take mrcn-epy-appkkcu and prescription medicines only as told by [...] small amount of very dark urine, within 6?8 hours. ??? Trouble breathing. These symptoms may [...] slowly drinking other clear fluids. ??? Take ypxz-awa-zduwgsw and prescription medicines only as told by your health care provider. ??? Get help right away if you have any symptoms of severe dehydration. This information is not intended to replace advice given to you by your health care provider. Make sure you discuss any questions you have with your health care provider. Document Revised: 05/31/2020 Document Reviewed: 05/31/2020 [employer] Patient Education ? 2020 [employer]. documented in this encounter Plan of Treatment Upcoming Encounters Date Type Department Care Team (Late st Contact Info) Description 03/10/2025 1:15 PM EDT Office Visit [facility] Cardiology - [place] [address] [place] [address] Tabby Mcallister PA-C 227 [facility] [address] [place] [address] documented as of this encounter Visit Diagnoses Not on filedocumented in this encounter Care Teams Biochemist Relationship Specialty Start Date End Date Stacy Moise PA PCP - General 03/02/23 documented as of this encounter
--- OUTSIDE RECORDS SUMMARY | 2024-09-30 17:08 | XMS_ITS | Encounter Summary ---
Author Organization [employer] Address [address] [facility] [place] [address] Care Team Providers Care Healthcare Technician Name Role Phone Stacy Moise Primary Care Provider [phone] Reason for Visit * Reason Comments Hypertension Encounter Details Date Type Department Care Team (Late st Contact Info) Description 08/12/2023 11:15 AM EDT Office Visit [facility] Cardiology - [place] [address] [place] [address] Tabby Mcallister PA-C [address] [address] Hypertension, unspecified type (Primary Dx) Social History Tobacco Use [...] Sign Reading Time Taken Comments Blood Pressure 152/82 08/12/2023 11:54 AM EDT Pulse 49 08/12/2023 11:54 AM EDT Temperature - - Respiratory Rate 16 08/12/2023 11:54 AM EDT Oxygen Saturation 98% 08/12/2023 11:54 AM EDT Inhaled Oxygen Concentration - - Weight 74.8 kg (165 lb) 08/12/2023 11:54 AM EDT Height 175.3 cm (5' 9 ) 08/12/2023 11:54 AM EDT Body Mass Index 24.37 08/12/2023 11:54 AM EDT documented in this encounter Progress Notes * Tabby Mcallister PA-C - 08/12/2023 11:15 AM EDT History of Present Illness Pleasant 77-year-old white male chronic smoker, CAD prior multiple PCI's, [facility] 2019 patent stents noother new disease identified [...] have come under better controlsince that time. ?? History of GI bleed AVMs therefore prophylactic anticoagulation has been avoided. He has been continued plaxix only. Stage III CKD stable. ?? Continues to smoke he is down to 6 cigarettes a day. Denies chest pain claudication symptoms Is being seen today earlier than his scheduled appointment with elevating blood pressures. No othercomplaints. Review of Systems 14 point review of [...] morning., Disp: 90 tablet, Rfl: 2 ??? cyclobenzaprine (FLEXERIL) 5 MG tablet, Take 1 tablet (5 mg total) by mouth 3 (three) times daily as needed., Disp: , Rfl: ??? esomeprazole (NexIUM) 20 MG capsule, Take 1 capsule (20 mg total) by mouth daily., Disp: , Rfl: ??? finasteride (PROSCAR) 5 mg tablet, Take 1 tablet (5 mg total) by mouth daily., Disp: , Rfl: ??? gemfibroziL (LOPID) [...] empty stomach., Disp: , Rfl: ??? losartan (COZAAR) 25 MG tablet, Take 1 tablet (25 mg total) by mouth daily., Disp: 90 tablet, Rfl: 1 ??? nebivoloL (BYSTOLIC) 10 MG tablet, Take [...] total) in the evening and 2 capsules (200 mg total) before bedtime., Disp: , Rfl: Vitals: 08/12/23 1154 BP: (!) 152/82 Pulse: (!) 49 Resp: 16 SpO2: 98% Physical Exam Constitutional: Appearance: Normal [...] Component Value Date/Time WBC 9.8 (H) 01/09/2022 045 RBC 4.77 01/09/2022 0450 HGB 14.9 01/09/2022 [...] angioplasty Luna BUNCH -CAD, history of PCI, [facility] 03/2020 patent stents stable other coronary anatomy -History of TIA with negative work-up 2019-continue Plavix -History of GI bleed/AVMs-avoid prophylactic anticoagulation -Chronic tobacco abuse -Chronic fatty liver -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 Consider increasing isosorbide. Monitor kidney function closely.Low-sodium diet discussed. Patient is trying to quit smoking. Keep scheduled appointment in September here Patient is scheduled to see Dr. Carrasco for follow-up in October. Tabby Mcallister PA-C documented in this encounter Plan of Treatment Upcoming Encounters Date Type Department Care Team (Late st Contact Info) Description 03/10/2025 1:15 PM EDT Office Visit [facility] Cardiology - [place] [address] [place] [address] Tabby Mcallister PA-C 227 [facility] [place] [address] [place] [address] documented as of this encounter Procedures Procedure Name Priority Date/Time Associated Diagnosis Comments FS_MODEL_IP_ECG 12-LEAD Routine 08/12/2023 2:15 PM EDT Hypertension, unspecified type documented in this encounter Results * ECG 12 lead (08/12/2023 2:15 PM EDT) Tabby Mcallister PA-C ECG ORDERABLES Final Result documented in this encounter Visit Diagnoses Diagnosis Hypertension, unspecified type- Primary documented in this encounter Care Teams Healthcare Technician Relationship Specialty Start Date End Date Stacy Moise PA PCP - General 03/02/23 documented as of this encounter
--- OUTSIDE RECORDS SUMMARY | 2024-09-30 17:08 | XMS_ITS | Encounter Summary ---
Author Organization [employer] Address [address] [facility] [place] [address] Care Team Providers Care Tea Leaf Reader Name Role Phone Stacy Moise Primary Care Provider [phone] Encounter Details Date Type Department Care Team (Late st Contact Info) Description 01/09/2022 Transcribed Document [facility] [place] [facility] [place] [address] ProviderMireya MD [address] [place] [address] Social History Tobacco Use Types Packs/Day Years Used Date Smoking Tobacco: Never Assessed Sex and Gender Information Value Date Recorded Sex Assigned at Not on file Legal Sex Male 5:25 PM CDT Gender Identity Not on file Sexual Orientation Not on file documented as of this encounter Miscellaneous Notes * Cerner Conversion Note - Mireya ProviderMD - 01/09/2022 5:00 AM OUTSIDE PARTS SALESMAN Chart Check - Review Order Profile Entered On: 01/09/2022 3:23 EST Performed On: 01/09/2022 5:00 EST by Ginger Vital Non Emp RN Chart Check Powerplans Initiated/Discontinued as Appropriate : Yes All Active Orders Reviewed : Yes Ginger Vital Non Emp RN - 01/09/2022 3:23 EST documented in this encounter Plan of Treatment Upcoming Encounters Date Type Department Care Team (Late st Contact Info) Description 03/10/2025 1:15 PM EDT Office Visit [facility] Cardiology - [address] [address] Tabby Mcallister PA-C [address] [place] [address] documented as of this encounter Visit Diagnoses Not on filedocumented in this encounter Care Teams Tea Leaf Reader Relationship Specialty Start Date End Date Stacy Moise PA PCP - General 03/02/23 documented as of this encounter
--- OUTSIDE RECORDS SUMMARY | 2024-09-30 17:08 | XMS_ITS | Encounter Summary ---
Author Organization [employer] Address [address] [facility] [place] [address] Care Team Providers Care Diesel Dragline Operator Name Role Phone Stacy Moise Primary Care Provider [phone] Encounter Details Date Type Department Care Team (Late st Contact Info) Description 01/09/2022 Historic Encounter [facility] [address] [place] [address] ProviderJuan Historical Social History Tobacco [...] Description 03/10/2025 1:15 PM EDT Office Visit [facility] Cardiology - [place] [address] [place] [address] Tabby Mcallister PA-C [address] [place] [address] [address] [place] [address] documented as of this encounter Procedures Procedure Name Priority Date/Time Associated Diagnosis Comments BMP BASIC METABOLIC PANEL ([facility] BKR DATA CONV) Routine 01/09/2022 4:50 AM EST documented in this encounter Results * (ABNORMAL) BMP BASIC METABOLIC PANEL ([facility] BKR DATA CONV) (01/09/2022 4:50 AM EST) Glucose Level 121(H) 74 - 106 mg/dL 01/09/2022 10:40 AM EST Comment: [employer] has become aware of sulfasalazine and sulfapyridine drug interference in the assays ALT, AST, T4, CKMB, glucose, and ammonia. The probability of misinterpretation of results for the assays is remote and would be limited to scenarios where a patient has taken the drug and had a blood sample drawn before clearance of the drug to a level that does not interfere with laboratory testing. Venipuncture should occur prior to administration of the drug. Blood Urea Nitrogen 75(H) 7 - 22 mg/dL 01/09/2022 10:40 AM EST Comment:Released without rep eat. Creatinine Level 1.40(H) 0.70 - 1.30 mg/dL 01/09/2022 10:40 AM EST Comment:Released without rep eat. Sodium Level 139 136 - 146 mmol/L 01/09/2022 10:40 AM EST Potassium Level 3.2(L) 3.5 - 5.1 mmol/L 01/09/2022 10:40 AM EST Chloride Level 107 102 - 112 mmol/L 01/09/2022 10:40 AM EST Carbon Dioxide Level 23 21 - 32 mmol/L 01/09/2022 10:40 AM EST Anion Gap 12 9 - 20 01/09/2022 10:40 AM EST Calcium Level 7.7(L) 8.4 - 10.1 mg/dL 01/09/2022 10:40 AM EST Bun/Creatinine 53.6(H) 8.0 - 20.0 01/09/2022 10:40 AM EST eGFR NonAfrican 49(L) >=60 mL/min/1. 73m2 01/09/2022 10:44 AM EST Comment: GFR <60 suggests chronic kidney disease, if found over 3 month period. GFR <15 indicates renal failure. eGFR 59(L) >=60 mL/min/1. 73m2 01/09/2022 10:44 AM EST Comment: GFR <60 suggests chronic kidney disease, if found over 3 month period. GFR <15 indicates renal failure. Blood 01/09/2022 4:50 AM EST 01/09/2022 10:09 AM EST [facility] Historical Provider LAB BLOOD ORDERABLES Fi nal Result [facility] [address] [phone] documented in this encounter Visit Diagnoses Not on filedocumented in this encounter Care Teams Diesel Dragline Operator Relationship Specialty Start Date End Date Stacy Moise PA PCP - General 03/02/23 documented as of this encounter
--- OUTSIDE RECORDS SUMMARY | 2024-09-30 17:08 | XMS_ITS | Encounter Summary ---
Author Organization [employer] Address [address] [place] [address] Care Team Providers Care Cone Chocolate Dipper Name Role Phone Stacy Moise Primary Care Provider [phone] Encounter Details Date Type Department Care Team (Late st Contact Info) Description 04/21/2023 Orders Only [address] [address] Boubacar Art, CUSTOM STOCK MAKER Hypertension, unspecified type (Primary Dx) Social History [...] Description 03/10/2025 1:15 PM EDT Office Visit [address] [address] Tabby Mcallister PA-C [address] [place] [address] documented as of this encounter Visit Diagnoses Diagnosis Hypertension, unspecified type- Primary documented in this encounter Care Teams Cone Chocolate Dipper Relationship Specialty Start Date End Date Stacy Moise PA PCP - General 03/02/23 documented as of this encounter
--- OUTSIDE RECORDS SUMMARY | 2024-09-30 17:08 | XMS_ITS | Encounter Summary ---
Author Organization [employer] In [employer] Address [address] [place] [address] Care Team Providers Care Vamp Strap Ironer Name Role Phone Stacy Moise Primary Care Provider [phone] Encounter Details Date Type Department Care Team (Late st Contact Info) Description 09/03/2023 Orders Only [address] [address] Tabby Mcallister PA-C [address] [place] [address] Hypertension, unspecified type (Primary Dx) Social [...] Description 03/10/2025 1:15 PM EDT Office Visit [address] [address] Tabby Mcallister PA-C [address] [place] [address] documented as of this encounter Visit Diagnoses Diagnosis Hypertension, unspecified type- Primary documented in this encounter Care Teams Vamp Strap Ironer Relationship Specialty Start Date End Date Stacy Moise PA PCP - General 03/02/23 documented as of this encounter
--- OUTSIDE RECORDS SUMMARY | 2024-09-30 17:08 | XMS_ITS | Encounter Summary ---
Author Organization [employer] In [employer] Address [address] [place] [address] Care Team Providers Care Non Destructive Testing Engineer Name Role Phone Stacy Moise Primary Care Provider [phone] Reason for Visit * Reason Comments Medication Refill Encounter Details Date Type Department Care Team (Late st Contact Info) Description 06/14/[address] [address] Tabby Mcallister PA-C [address] [address] Hyperlipidemia, unspecified hyperlipidemia type Social History [...] Description 03/10/2025 1:15 PM EDT Office Visit [address] [address] Tabby Mcallister PA-C [address] [address] documented as of this encounter Visit Diagnoses Diagnosis Hyperlipidemia, unspecified hyperlipidemia type documented in this encounter Care Teams Non Destructive Testing Engineer Relationship Specialty Start Date End Date Stacy Moise PA PCP - General 03/02/23 documented as of this encounter
--- OUTSIDE RECORDS SUMMARY | 2024-09-30 17:08 | XMS_ITS | Encounter Summary ---
Author Organization [employer] In [employer] Address [address] [facility] [place] [address] Care Team Providers Care Emission Technician Name Role Phone Stacy Moise Primary Care Provider [phone] Reason for Visit * Reason Comments Hypertension Encounter Details Date Type Department Care Team (Late st Contact Info) Description 03/03/2024 1:15 PM EDT Office Visit [facility] Cardiology - [place] [address] [place] [address] Tabby Mcallister PA-C [address] [address] Hypertension, unspecified type (Primary Dx); Coronary artery 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 Social History Tobacco [...] Sign Reading Time Taken Comments Blood Pressure 144/84 03/03/2024 1:27 PM EDT Pulse 56 03/03/2024 1:27 PM EDT Temperature - - Respiratory Rate 20 03/03/2024 1:27 PM EDT Oxygen Saturation 98% 03/03/2024 1:27 PM EDT Inhaled Oxygen Concentration - - Weight 74.8 kg (165 lb) 03/03/2024 1:27 PM EDT Height 175.3 cm (5' 9 ) 03/03/2024 1:27 PM EDT Body Mass Index 24.37 03/03/2024 1:27 PM EDT documented in this encounter Progress Notes * Tabby Mcallister PA-C - 03/03/2024 1:15 PM EDT History of Present Illness Pleasant 78-year-old white male chronic smoker, CAD prior multiple PCI's, [facility] 2019 patent stents noother new [...] anticoagulation has been avoided. ??He has been continued??plaxix only. ??Stage III CKD stable. ?? Continues to smoke he is down to 6 cigarettes a day. ??Denies chest pain claudication symptoms ?? Came recently with elevating blood pressures. Comes [...] daily., Disp: 90 tablet, Rfl: 2 ??? atorvastatin (LIPITOR) 40 MG tablet, Take 1 tablet (40 mg total) by mouth daily., Disp: , Rfl: ??? cloNIDine HCL (CATAPRES) 0.1 MG tablet, Take 1 tablet (0.1 mg total) by mouth as needed ., Disp: , Rfl: ??? clopidogreL (PLAVIX) 75 mg tablet, Take 1 tablet (75 mg total) by mouth daily., Disp: 90 tablet, Rfl: 2 ??? dutasteride (AVODART) 0.5 mg capsule, Take 1 capsule (0.5 mg total) by mouth daily., Disp: , Rfl: ??? esomeprazole (NexIUM) 20 [...] 2 (two) times daily before meals., Disp: 180 tablet, Rfl: 3 ??? isosorbide mononitrate (IMDUR) 30 MG 24 hr tablet, TAKE 1 TABLET BY MOUTH ONCE A DAY, Disp: 90 tablet, Rfl: 0 ??? levothyroxine (SYNTHROID, LEVOTHROID) 25 MCG tablet, [...] daily., Disp: 90 tablet, Rfl: 2 ??? nitroglycerin (NITROSTAT) 0.4 MG SL tablet, [...] daily., Disp: 90 tablet, Rfl: 2 ??? Bifidobacterium infantis (ALIGN ORAL), Take 1 tablet by mouth in the morning., Disp: , Rfl: Vitals: 03/03/24 1327 BP: (!) 144/84 Pulse: 56 Resp: 20 SpO2: 98% Physical Exam Constitutional: Appearance: Normal [...] 0450 Component Value Date/Time GLUCOSE 121 (H) 01/09/20220 BUN 75 (H) 01/09/2022 0450 CREATININE 1.40 (H) 01/09/2022 0450 Component Value Date/Time AST 27 01/08/2022 06 ALT 49 01/08/2022600 ALKPHOS 55 01/08/2022 06 No results found for: CHOL , LDL , LDLCALC , HDL , TRIG Component Value Date/Time HGBA1C 6.8 03/11/2020 0027 Component Value Date/Time TSH 1.980 01/08/2022600 EKG: Sinus bradycardia 56 bpm otherwise normal Assessment Renovascular hypertension, renal artery stenosis, balloon angioplasty Luna BUNCH -CAD, history of PCI, [facility] 03/2020 patent stents stable other coronary anatomy -History of TIA with negative work-up 2019-continue Plavix -History of GI bleed/AVMs-avoid prophylactic anticoagulation -Chronic tobacco abuse -Chronic fatty liver -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 Continue all same medications. Continue daily exercise Continue low-sodium diet Continue off cigarettes Continue follow-up with Dr. Carrasco. Follow-up in 6 months Tabby Mcallister PA-C documented in this encounter Plan of Treatment Upcoming Encounters Date Type Department Care Team (Late st Contact Info) Description 03/10/2025 1:15 PM EDT Office Visit [facility] Cardiology - [place] [address] [place] [address] Tabby Mcallister PA-C [address] [place] [address] [address] [place] [address] documented as of this encounter Procedures Procedure Name Priority Date/Time Associated Diagnosis Comments FS_MODEL_IP_ECG 12-LEAD Routine 03/03/2024 4:07 PM EDT Hypertension, unspecified type documented in this encounter Results * ECG 12 lead (03/03/2024 4:07 PM EDT) Tabby Mcallister PA-C ECG ORDERABLES Final Result documented in this encounter Visit Diagnoses Diagnosis Hypertension, unspecified type- Primary Coronary artery 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 documented in this encounter Care Teams Emission Technician Relationship Specialty Start Date End Date Stacy Moise PA PCP - General 03/02/23 documented as of this encounter
--- OUTSIDE RECORDS SUMMARY | 2024-09-30 17:09 | XMS_ITS | Encounter Summary ---
Author Organization [employer] In [employer] Address [address] [facility] [place] [address] Care Team Providers Care Nuclear Weapons Mechanical Specialist Name Role Phone Stacy Moise Primary Care Provider [phone] Encounter Details Date Type Department Care Team (Late st Contact Info) Description 01/07/2022 Historic Encounter [facility] [address] [place] [address] ProviderJuan Historical Social History Tobacco [...] Description 03/10/2025 1:15 PM EDT Office Visit [facility] Cardiology - [place] [address] [place] [address] Tabby Mcallister PA-C [address] [place] [address] [address] [place] [address] documented as of this encounter Procedures Procedure Name Priority Date/Time Associated Diagnosis Comments PHOSPHORUS Routine 01/07/2022 11:05 PM EST documented in this encounter Results * (ABNORMAL) PHOSPHORUS (01/07/2022 11:05 PM EST) Phosphorus 8.3(H) 2.5 - 4.9 mg/dL 01/08/2022 4:44 AM EST Blood 01/07/2022 11:0 5 PM EST 01/08/2022 4:17 AM EST [facility] Historical Provider MICROBIOLOGY - GENERAL ORDERABLES Final Result Performing Organization Address City/State/[facility] Co de Phone Number [facility] [address] [phone] documented in this encounter Visit Diagnoses Not on filedocumented in this encounter Care Teams Nuclear Weapons Mechanical Specialist Relationship Specialty Start Date End Date Stacy Moise PA PCP - General 03/02/23 documented as of this encounter
--- OUTSIDE RECORDS SUMMARY | 2024-09-30 17:09 | XMS_ITS | Encounter Summary ---
Author Organization [employer] Address [address] [place] [address] Care Team Providers Care Commercial Relief Driver Name Role Phone Stacy Moise Primary Care Provider [phone] Encounter Details Date Type Department Care Team (Late st Contact Info) Description 01/08/2022 Transcribed Document [facility] [place] [facility] [place] [address] ProviderMireya MD [address] [place] [phone] Social History Tobacco Use Types Packs/Day Years Used Date Smoking Tobacco: Never Assessed Sex and Gender Information Value Date Recorded Sex Assigned at Not on file Legal Sex Male 5:25 PM CDT Gender Identity Not on file Sexual Orientation Not on file documented as of this encounter Miscellaneous Notes * Cerner Conversion Note - Mireya ProviderMD - 01/08/2022 5:50 AM GM/SVP GLOBAL PUBLISHER BUSINESS Evaluation, Occupational Therapy Entered On: 01/08/2022 12:08 EST Performed On: 01/08/2022 10:17 EST by CARROLL BARNETT, OTR/L General Information, OT Visit Type, OT : Initial evaluation Patient Orders : Order Date Order Ordering MD 01/08/2022 05:50 OT Evaluation and Treatment Ordered By: LIA SANTOYO MD-INT Active Diagnoses : 01/08/2022 12:00 Acute kidney failure, unspecified 01/08/2022 12:00 Dehydration 01/07/2022 12:00 Abnormal diagnostic test Therapy Diagnosis, OT : Decreased independence in ADLs and functional mobility Onset of Problem, OT : 01/08/2022 EST Admission Date : 01/08/2022 00:21 Co-treated by, OT : Physical Therapist Personal Devices : Personal Devices No Devices Recorded Assistive Devices : Assistive Devices No Devices Recorded General Information Comment, OT : Dx: ARF, dehydration CARROLL BARNETT OTR/Terri - 01/08/2022 11:50 EST General Status Patient Received Status : Supine in bed Treatment Start Time : 01/08/2022 10:07 EST Patient Left Status : Sitting edge of bed, RN/PCT informed, All needs met and within reach RN/PCT Informed Comment : MIKE tan'ed evaluation. Treatment End Time : 01/08/2022 10:17 EST Treatment Time : 10 Minute(s) CARROLL BARNETT OTR/Terri - 01/08/2022 11:50 EST History and Environment, OT Living Situation, Therapy : Home Patient Lives With : Spouse Persons Assisting Patient at Home : Alone Persons Providing Information : Patient Home Equipment, Therapy : None Home Setup : One story Bedroom Location : Main level Bathroom #1 Location : Main level Stairs : Yes Stair Location(s) : Outside Outside Stairs, Number of Steps : 3 Railing Outside : Yes Outside Railing Position : Right, going up CARROLL BARNETT OTR/Terri - 01/08/2022 11:50 EST Prior LOF Bathing, OT : Independent Prior LOF Bed Mobility : Independent Prior LOF Upper Body Dressing, OT : Independent Prior LOF Lower Body Dressing, OT : Independent Prior LOF Toileting : Independent Prior LOF Transfer : Independent Prior LOF Grooming, OT : Independent Prior LOF for IADLs, OT : Independent CARROLL BARNETT OTR/Terri - 01/08/2022 11:50 EST Upper Extremity Upper Extremity Dominance : Right Right UE Active ROM : WFL Right UE Strength : WFL Left UE Active ROM : WFL Left UE Strength : WFL Upper Extremity Strength Impaired : No CARROLL BARNETT OTR/Terri - 01/08/2022 11:50 EST Right Upper Extremity MMT Shoulder Flexion 0-180 : 4/good Shoulder Extension 0-60 : 4/good Shoulder Abduction 0-180 : 4/good Shoulder Adduction 0-180 : 4/good Shoulder Internal Rotation 0-90 : 4/good Shoulder External Rotation 0-90 : 4/good Elbow Flexion 0-150 : 4/good Elbow Extension 0-0 : 4/good Wrist Flexion 0-80 : 4/good Wrist Extension 0-70 : 4/good Forearm Pronation 0-70 : 4/good Forearm Supination 0-85 : 4/good Ulnar Deviation 0-45 : 4/good RadialDeviation 0-20 : 4/good CARROLL BARNETT OTR/Terri - 01/08/2022 11:50 EST Left Upper Extremity MMT Shoulder Flexion 0-180 : 4/good Shoulder Extension 0-60 : 4/good Shoulder Abduction 0-180 : 4/good Shoulder Adduction 0-180 : 4/good Shoulder Internal Rotation 0-90 : 4/good Shoulder External Rotation 0-90 : 4/good Elbow Flexion 0-150 : 4/good Elbow Extension 0-0 : 4/good Wrist Flexion 0-80 : 4/good Wrist Extension 0-70 : 4/good Forearm Pronation 0-70 : 4/good Forearm Supination 0-85 : 4/good Ulnar Deviation 0-45 : 4/good RadialDeviation 0-20 : 4/good CARROLL BARNETT OTR/Terri - 01/08/2022 11:50 EST Self Care/Home Management, OT Self Feeding Assist Level, OT : Independent, complete Grooming Assist Level, OT : Independent, complete Bathing Assist Level, OT : Supervision or set-up Upper Body Dressing Assist Level, OT : Independent, complete Lower Body Dressing Assist Level, OT : Supervision or set-up Toileting Assist Level : Independent, complete Toilet Transfer Assist Level : Supervision or set-up CARROLL BARNETT OTR/Terri - 01/08/2022 11:50 EST Functional Mobility Mobility Grid Supine to Sit : Rehab Complete independence Sit to Stand : Rehab Complete independence Bed to Chair : Supervision/set-up Stand to Sit : Rehab Complete independence CARROLL BARNETT OTR/Terri - 01/08/2022 11:50 EST Cognition Assessment, OT Orientation : Oriented x 4 CARROLL BARNETT OTR/Terri - 01/08/2022 11:50 EST Indication Assessment, OT Occupational Therapy Indicated : Yes Problem List, OT : Impaired, endurance tolerance, Impaired functional mobility Potential Barriers, OT : Acuity of illness Rehabilitation Potential, OT : CARROLL Lynne OTR/Terri - 01/08/2022 11:50 EST Plan of Care, OT OT Tx Plan/Goals Established w Patient : Yes OT Frequency Rehab : Five days per week OT Duration Rehab : Fourteen days OT Treatments Planned : Activities of daily living, Balance training, Functional mobility training, Pain management, Safety education, Therapeutic activities CARROLL BARNETT OTR/L - 01/08/2022 11:50 EST Gray Mixing Operator Goals, OT Grooming LTG Grid Goal #1 Activity : Grooming Assist : Independent, complete Date to Meet : 01/22/2022 EDT Goal Status : Initial goal CARROLL BARNETT OTR/L - 01/08/2022 11:50 EST Dressing, Lower Body LTG Grid Goal #1 Activity : Dressing, Lower Body Assist : Independent, complete Date to Meet : 01/22/2022 EDT Goal Status : Initial goal CARROLL BARNETT OTR/L - 01/08/2022 11:50 EST Toilet Transfer LTG Grid Goal #1 Activity : Toilet Transfer, Ambulatory Assist : Independent, complete Date to Meet : 01/22/2022 EDT Goal Status : Initial goal CARROLL BARNETT OTR/L - 01/08/2022 11:50 EST Treatment Note Subjective Comment : Pt was agreeable. During ambulation, pt states I won't have been able to do this yesterday. My blood pressure was low and I was really dehydrated. Patient's Response to Treatment : Pt tolerated evaluation well. Additional Objective Information : Pt was found supine upon arrival. Pt participated in evaluation questioning. Pt to the EOB independently. BUE assessed, found to be WFL. Pt stood and ambulated >200ft without AD. Pt had no LOBs. Pt returned to the room, was left sitting EOB with all needs met and CL in reach. Assessment : Pt with good participation and overall mobility in evaluation this date. Because pt reports a change in mobility in the last 24hours, pt will benefit from x1-2 additional OT tx to ensure safety in all ADLs and functional mobility. Anticipate discharge home with family care. Plan for Treatment : See OT goals. CARROLL BARNETT OTR/L - 01/08/2022 11:50 EST Pain Assessment Pain Scaled Used : 0-10 Pain scale Pain Score Pre-Intervention : 0 CARROLL BARNETT OTR/L - 01/08/2022 11:50 EST Image 1 - Images currently included in the form version of this document have not been included in the text rendition version of the form. Anticipated Discharge Needs, OT/PT Anticipated Discharge to : Home, with family care CARROLL BARNETT OTR/L - 01/08/2022 11:[address] [facility] OT Charges OT Eval Low Complexity : 1 CARROLL BARNETT OTR/Terri - 01/08/2022 11:50 EST Electronically signed by [facility] Conversion Eyewear Manufacturing Supervisor Cerner at 02/16/2023 3:52 PM CDT documented in this encounter Plan of Treatment Upcoming Encounters Date Type Department Care Team (Late st Contact Info) Description 03/10/2025 1:15 PM EDT Office Visit [facility] Cardiology - [address] [address] Tabby Mcallister PA-C [address] [place] [address] documented as of this encounter Visit Diagnoses Not on filedocumented in this encounter Care Teams Commercial Relief Driver Relationship Specialty Start Date End Date Stacy Moise PA PCP - General 03/02/23 documented as of this encounter
--- OUTSIDE RECORDS SUMMARY | 2024-09-30 17:09 | XMS_ITS | Encounter Summary ---
Author Organization [employer] Address [address] [facility] [place] [address] Care Team Providers Care Canvas Repairer Name Role Phone Stacy Moise Primary Care Provider [phone] Encounter Details Date Type Department Care Team (Late st Contact Info) Description 01/08/2022 Transcribed Document [facility] Radiology [address] [place] [address] Girish Sanchez MD [address] [place] [address] [address] [place] [address] Social History Tobacco Use Types Packs/Day Years Used Date Smoking Tobacco: Never Assessed Sex and Gender Information Value Date Recorded Sex Assigned at Not on file Legal Sex Male 5:25 PM CDT Gender Identity Not on file Sexual Orientation Not on file documented as of this encounter Miscellaneous Notes * Cerner Conversion Note - Girish Sanchez MD - 01/08/2022 10:34 AM EST Patient: SCOTTIE CURRAN Age: 76 years Sex: Male : 1945 Associated Diagnoses: None Author: GIRISH SANCHEZ MD-INT Subjective PCP: Dr. May, [facility] DOA: 01/08/2022 DOD: HPI: 76-year-old gentleman with recent history of viral gastroenteritis. Found to have acute kidney failure and admitted for the same reason. CODE STATUS: Full code CONSULTS: Nephrology WORKUP / PROCEDURES: HOSPITAL FOLLOWUP: 01/08/2022 Patient seen and examined today. Chart and H&P reviewed. Workup noted. Medications reviewed. Patient is resting in bed, patient denies any new diarrhea or nausea. Patient is hemodynamically stable. He is afebrile. Health Status Allergies: Allergic Reactions (Selected) No [...] suspension: 30 mL, Oral, Daily, PRN: Constipation Normal Saline 1,000 mL: 100 mL/Hr, IntraVENous Norvasc: 10 mg, Oral, Daily Plavix: 75 mg, Oral, Daily Proscar: 5 mg, Oral, Daily Protonix: 40 mg, Oral, Daily Zofran: 4 mg, IV Push, Q4H, PRN: [...] loratadine: 10 mg, Oral, Daily, PRN: Allergies Documented Medications Documented Aspir 81: 81 mg, Oral, Daily, 0 Refill(s) Bystolic 10 mg oral tablet: 1 Tab, Oral, Daily, 0 Refill(s) Januvia 100 mg oral tablet: 1 Tab, Oral, Daily, 30 Tab, 0 Refill(s) Konsyl: Oral, EveryOtherDay, 0 Refill(s) Lopid 600 mg oral tablet: 1 Tab, Oral, BID, 0 Refill(s) NexIUM 24HR 20 mg oral delayed release capsule: Cap, Oral, Daily, 0 Refill(s) Nitrostat 0.4 mg sublingual tablet: 1 Tab, SubLINgual, Q5Min, PRN: Chest Pain Norvasc 10 mg oral tablet: 1 Tab, Oral, Daily, 0 Refill(s) Plavix 75 mg oral tablet: 1 Tab, Oral, Daily, 0 Refill(s) Proscar: 5 mg, Oral, Daily, 0 Refill(s) Systane: See Instructions, 1 drop each eye Eyes Both as needed for dry eye, 0 Refill(s) Vitamin B12: 1,000 mcg, IntraMuscular, Daily, 0 Refill(s) Vitamin B12: See Instructions, OTC B12, 0 Refill(s) ZyrTEC: 10 mg, Oral, Daily, PRN: as needed for allergy symptoms, 0 Refill(s) atorvastatin 40 mg oral tablet: 1 Tab, Oral, Daily, 0 Refill(s) furosemide 20 mg oral tablet: 1 Tab, Oral, Daily, 0 Refill(s) hydrALAZINE 25 mg oral tablet: 1 Tab, Oral, BID, 60 Tab, 0 Refill(s) isosorbide dinitrate: 30 mg, Oral, Daily, 0 Refill(s) levothyroxine 25 mcg (0.025 mg) oral tablet: 1 Tab, Oral, Daily, 0 Refill(s) lisinopril: 20 mg, Oral, Daily, 0 Refill(s) potassium chloride 20 mEq oral tablet, extended release: Tab, Oral, BID, 0 Refill(s), Home Medications (21) Active Aspir 81 81 mg, Oral, Daily atorvastatin 40 mg oral tablet 40 mg = 1 Tab, Oral, Daily Bystolic 10 mg oral tablet 10 mg = 1 Tab, Oral, Daily furosemide 20 mg oral tablet 20 mg = 1 Tab, Oral, Daily hydrALAZINE 25 mg oral tablet 25 mg = 1 Tab, Oral, BID isosorbide dinitrate 30 mg, Oral, Daily Januvia 100 mg oral tablet 100 mg = 1 Tab, Oral, Daily Konsyl , Oral, EveryOtherDay levothyroxine 25 mcg (0.025 mg) oral tablet 25 mcg = 1 Tab, Oral, Daily lisinopril 20 mg, Oral, Daily Lopid 600 mg oral tablet 600 mg = 1 Tab, Oral, BID NexIUM 24HR 20 mg oral delayed release capsule , Oral, Daily Nitrostat 0.4 mg sublingual tablet 0.4 mg = 1 Tab, PRN, SubLINgual, Q5Min Norvasc 10 mg oral tablet 10 mg = 1 Tab, Oral, Daily Plavix 75 mg oral tablet 75 mg = 1 Tab, Oral, Daily potassium chloride 20 mEq oral tablet, extended release , Oral, BID Proscar 5 mg, Oral, Daily Systane See Instructions Vitamin B12 1,000 mcg, IntraMuscular, Daily Vitamin B12 See Instructions ZyrTEC 10 mg, PRN, Oral, Daily Problem list: Active Problems (26) Acquired hypothyroidism Anemia (hx of) Angina (hx of, Last had in 2016) Aortic valve disease Arthritis At risk for [...] 24 hrs) Last Charted Minimum Maximum Temp 98.2 (JAN 08 05:05) 97.9 (JAN 08 02:49) 98.2 (JAN 08 05:05) Mon HR 71 (JAN 08 05:05) 71 (JAN 08 05:05) 71 (JAN 08 05:05) Periph HR 72 (JAN 08 02:49) 72 (JAN 08 02:49) 83 (JAN 07 22:58) Resp Rate 15 (JAN 08 02:49) 14 (JAN 07 22:58) 15 (JAN 08 01:35) SBP 126 (JAN 08 05:05) 102 (JAN 07 22:58) H 150 (JAN 08 02:49) DBP 72 (JAN 08 05:05) 70 (JAN 07 22:58) 81 (JAN 08 02:49) MAP 97 (JAN 08 05:05) 97 (JAN 08 05:05) 104 (JAN 08 02:49) SpO2 98 (JAN 08 05:05) 97 (JAN 07 22:58) 98 (JAN 08 01:35) General: Alert and oriented, Mild distress. Eye: Pupils are equal, round and reactive to light, Extraocular movements are intact, Normal conjunctiva. HENT: Normocephalic, Oral mucosa is moist. Neck: Supple, Non-tender, No carotid bruit. Respiratory: Lungs are clear to auscultation, Respirations are non-labored. Cardiovascular: Normal rate, Regular rhythm. Gastrointestinal: Soft, Non-tender, Normal bowel sounds. Musculoskeletal: Normal range of motion. Integumentary: Warm. Neurologic: Alert, Oriented, Normal motor function, No focal deficits. Psychiatric: Cooperative. Results Review No Radiology Results Found JAN 08 06:01 L 135 104 C 110 / H 119 L 3.3 21 H 2.40 \ JAN 08 06:01 \ 14.5 / H 10.6 243 / 41.3 \ Impression and Plan Assessment and Plan: Diagnosis. DIAGNOSIS: Acute kidney failure, likely ATN due to dehydration. Gastroenteritis, likely viral, seems resolving. Electrolyte imbalance with hyponatremia and hypokalemia, due to above. COVID-19 was negative on admission. Mild leukocytosis, likely due to above, continue to monitor. Coronary artery disease. Hypothyroid Peripheral arterial disease and left lower extremity stent placement Essential hypertension, continue current medications and follow closely Hyperlipidemia with elevated triglycerides History of cervical disc disease and disc fusion surgery BPH On going tobacco use, counseling done PLAN Continue with IV hydration. Continue to replace electrolytes and monitor closely. We will check TSH. GI symptoms resolving and continue with symptomatic treatment. Home medications will be reconciled. Monitor blood glucose. Discussed with the patient this morning and he understands the plan of care documented in this encounter Plan of Treatment Upcoming Encounters Date Type Department Care Team (Late st Contact Info) Description 03/10/2025 1:15 PM EDT Office Visit [facility] Cardiology - [address] [address] Tabby Mcallister PA-C [address] [place] [phone] documented as of this encounter Visit Diagnoses Not on filedocumented in this encounter Care Teams Canvas Repairer Relationship Specialty Start Date End Date tSacy Moise PA PCP - General 03/02/23 documented as of this encounter
--- OUTSIDE RECORDS SUMMARY | 2024-09-30 17:09 | XMS_ITS | Encounter Summary ---
Author Organization [employer] Address [address] [place] [address] Care Team Providers Care Custom Feed Mill Operator Name Role Phone Stacy Moise Primary Care Provider [phone] Encounter Details Date Type Department Care Team (Late st Contact Info) Description 01/09/2022 Transcribed Document [facility] Family Medicine [facility] [place] [address] ProviderMireya MD [address] [place] [phone] Social History Tobacco Use Types Packs/Day Years Used Date Smoking Tobacco: Never Assessed Sex and Gender Information Value Date Recorded Sex Assigned at Not on file Legal Sex Male 5:25 PM CDT Gender Identity Not on file Sexual Orientation Not on file documented as of this encounter Miscellaneous Notes * Cerner Conversion Note - Mireya ProviderMD - 01/09/2022 2:00 AM RADIO ELECTRONICS OFFICER Stranding Machine Operator Details Entered On: 01/09/2022 3:22 EST Performed On: 01/09/2022 2:00 EST by Ginger Vital Non Emp RN Order Details Transport Mode Order Detail : Wheelchair Isolation Precautions Order Detail : Standard Precautions Order Detail : N/A IV Order Detail : 1 Oxygen Order Detail : 0 Lift/Transfer : Independent Central Line Order Detail : No Room Service : Appropriate Arterial Line : No Patient Needs Meds Crushed/Liquid : No Ginger Vital Non Emp RN - 01/09/2022 3:22 EST documented in this encounter Plan of Treatment Upcoming Encounters Date Type Department Care Team (Late st Contact Info) Description 03/10/2025 1:15 PM EDT Office Visit [facility] Cardiology - [place] [address] [place] [address] Tabby Mcallister PA-Yuliana [address] [facility] [address] [place] [address] documented as of this encounter Visit Diagnoses Not on filedocumented in this encounter Care Teams Custom Feed Mill Operator Relationship Specialty Start Date End Date Stacy Moise PA PCP - General 03/02/23 documented as of this encounter
--- OUTSIDE RECORDS SUMMARY | 2024-09-30 17:09 | XMS_ITS | Encounter Summary ---
Author Organization [employer] Address [address] [facility] [place] [address] Care Team Providers Care Internetworking Technician Name Role Phone Stacy Moise Primary Care Provider [phone] Encounter Details Date Type Department Care Team (Late st Contact Info) Description 01/07/2022 Transcribed Document [facility] [place] [facility] [place] [address] ProviderMireya MD [address] [place] [address] [id number] Social History Tobacco Use Types Packs/Day Years Used Date Smoking Tobacco: Never Assessed Sex and Gender Information Value Date Recorded Sex Assigned at Not on file Legal Sex Male 5:25 PM CDT Gender Identity Not on file Sexual Orientation Not on file documented as of this encounter Miscellaneous Notes * Cerner Conversion Note - Mireya ProviderMD - 01/07/2022 10:45 PM WEB SITE SPECIALIST ED Triage Entered On: 01/07/2022 23:02 EST Performed On: 01/07/2022 22:58 EST by Ellie Villareal RN ED Triage Across the Room Chief Complaint : Pt from home after having a stomach bug since thursday. went to PCP today and had labs and was told to come here for BUN of [address] May sent them. Triage Date/Time : 01/07/2022 22:58 EST Ellie Villareal RN - 01/07/2022 22:58 EST DCP GENERIC CODE Tracking Acuity : 3 - Urgent Tracking Group : [facility] ED Ellie Villareal RN - 01/07/2022 22:58 EST Mode of Arrival : Ambulatory Transported to ED by : Private vehicle To Room Via : Ambulate Accompanied By : Spouse ED Vital Signs : Document Height & Weight : Document ED Allergies : Document ED Reason for Visit : Document Tetanus Immunization : Unknown Licensed Professional Counselor Needed : No Ellie Villareal RN - 01/07/2022 22:58 EST Infectious Disease History Does patient have symptoms of COVID-19? : No Has the Patient Been Tested for COVID-19 in the last 14 days? : No, Patient stated Does the Patient state known exposure to a COVID-19 positive case in the last 14 days? : No Patient Vaccinated for COVID-19 : Fully vaccinated Ellie Villareal RN - 01/07/2022 22:58 EST Infectious Disease Risk Screening Grid Cough < 2 wks of unknown origin : NO Cough > 2 weeks : NO Blood in Sputum : NO Fever or self-reported Fever : NO Rash of unknown origin : NO Headache : NO Stiff neck : NO Night Sweats : NO Unexplained Weight Loss : NO Diarrhea (3 episode per day) : NO Ellie Villareal RN - 01/07/2022 22:58 EST Physical contact outside [place] in the last 30 days : No Hospitalized in [place] : No Infectious Disease History : Chicken pox/Shingles, Measles, Mumps, Pertussis (Whooping cough) INF Disease TB Screening Calc : 0 INF Disease Recent Travel Calc : 0 Ellie Villareal RN - 01/07/2022 22:58 EST Vital Signs ED Temperature Source : Temporal artery scanning Temperature Mode : Fahrenheit Temperature, Fahrenheit : 97.9 Deg F Clinical Temperature, C : 36.6 Deg C Oxygen Therapy Mode : Room air Peripheral Pulse Rate : 83 bpm Respiratory Rate : 14 Breaths/Min Blood Pressure Location : Arm, right upper Blood Pressure Source : Non-Invasive BP Device Systolic Blood Pressure : 102 mmHg Diastolic Blood Pressure : 70 mmHg Oxygen Saturation : 97 % Ellie Villareal RN - 01/07/2022 22:58 EST Allergy (As Of: 01/07/2022 23:02:00 EST) Allergies (Active) No Known Medication Allergies Estimated Onset Date: Unspecified ; Created By: SHEILA MARTINEZ RN; Reaction Status: Active ; Category: Drug ; Substance: No Known Medication Allergies ; Type: Allergy ; Updated By: SHEILA MARTINEZ RN; Reviewed Date: 11/26/2021 12:39 EST Diagnosis Control ED (As Of: 01/07/2022 23:02:00 EST) Problems(Active) Acquired hypothyroidism (SNOMED CT :360946720 ) Name of Problem: Acquired hypothyroidism ; Recorder: Lorena Brannon RN; Confirmation: Confirmed ; Classification: Patient Stated ; Code: [id number] ; Contributor System: ReksoftChart ; Last Updated: 01/28/2021 9:20 EDT ; Life Cycle Date: 01/28/2021 ; Life Cycle Status: Active ; Vocabulary: SNOMED CT Anemia (hx of) (SNOMED CT :194131056 ) Name of Problem: Anemia (hx of) ; Recorder: QUOC HALL RN; Confirmation: Confirmed ; Classification: Medical ; Code: 235718244 ; Contributor System: PowerChart ; Last Updated: 01/13/2020 11:12 EDT ; Life Cycle Date: 01/13/2020 ; Life Cycle Status: Active ; Vocabulary: SNOMED CT Angina (hx of, Last had in 2016) (SNOMED CT :007101640 ) Name of Problem: Angina (hx of, Last had in 2016) ; Recorder: RENETTA TRAYLOR RN; Confirmation: Confirmed ; Classification: Medical ; Code: [id number] ; Contributor System: PowerChart ; Last Updated: 01/13/2020 11:09 EDT ; Life Cycle Status: Active ; Vocabulary: SNOMED CT Aortic valve disease (SNOMED CT :01892208 ) Name of Problem: Aortic valve disease ; Recorder: Jhon Perez RN; Confirmation: Confirmed ; Classification: Medical ; Code: 55362761 ; Contributor System: PowerChart ; Last Updated: 05/24/2015 21:46 EDT ; Life Cycle Date: 05/24/2015 ; Life Cycle Status: Active ; Vocabulary: SNOMED CT Arthritis (SNOMED CT :7526535 ) Name of Problem: Arthritis ; Recorder: RENETTA TRAYLOR RN; Confirmation: Confirmed ; Classification: Medical ; Code: 2713496 ; Contributor System: PowerChart ; Last Updated: 12/23/2018 11:50 EST ; Life Cycle Date: 12/23/2018 ; Life Cycle Status: Active ; Vocabulary: SNOMED CT At risk for sleep apnea (IMO :80448278 ) Name of Problem: At risk for sleep apnea ; Recorder: SYSTEM, SYSTEM; Confirmation: Confirmed ; Classification: Medical ; Code: 88986845 ; Last Updated: 12/23/2018 12:09 EST ; Life Cycle Date: 12/23/2018 ; Life Cycle Status: Active ; Vocabulary: IMO Back pain (SNOMED CT :9734355478 ) Name of Problem: Back pain ; Recorder: RENETTA TRAYLOR, RN; Confirmation: Confirmed ; Classification: Medical ; Code: 7073616978 ; Contributor System: PowerChart ; Last Updated: 12/23/2018 11:50 EST ; Life Cycle Date: 12/23/2018 ; Life Cycle Status: Active ; Vocabulary: SNOMED CT CAD (coronary artery disease) (SNOMED CT :47216771 ) Name of Problem: CAD (coronary artery disease) ; Recorder: Jhon Perez, MIKE; Confirmation: Confirmed ; Classification: Medical ; Code: 73474591 ; Contributor System: PowerChart ; Last Updated: 05/24/2015 21:45 EDT ; Life Cycle Date: 05/24/2015 ; Life Cycle Status: Active ; Vocabulary: SNOMED CT Cervical spinal stenosis (SNOMED CT :388135489 ) Name of Problem: Cervical spinal stenosis ; Recorder: QUOC HALL RN; Confirmation: Confirmed ; Classification: Medical ; Code: 310590479 ; Contributor System: PowerChart ; Last Updated: 01/13/2020 11:13 EDT ; Life Cycle Date: 01/13/2020 ; Life Cycle Status: Active ; Vocabulary: SNOMED CT Claudication (SNOMED CT :383149492 ) Name of Problem: Claudication ; Recorder: ALFREDA CASTILLO; Confirmation: Confirmed ; Classification: Medical ; Code: 202798713 ; Contributor System: PowerChart ; Last Updated: 06/13/2019 12:55 EDT ; Life Cycle Date: 06/13/2019 ; Life Cycle Status: Active ; Vocabulary: SNOMED CT Colorectal surgery (SNOMED CT :4237147993 ) Name of Problem: Colorectal surgery ; Recorder: QUOC HALL RN; Confirmation: Confirmed ; Classification: Medical ; Code: [id number] ; Contributor System: PowerChart ; Last Updated: 01/13/2020 11:12 EDT ; Life Cycle Date: 01/13/2020 ; Life Cycle Status: Active ; Vocabulary: SNOMED CT Diabetes (SNOMED CT :797770907 ) Name of Problem: Diabetes ; Recorder: Lorena Brannon RN; Confirmation: Confirmed ; Classification: Patient Stated ; Code: 598159434 ; Contributor System: ReksoftChart ; Last Updated: 01/28/2021 9:20 EDT ; Life Cycle Date: 01/28/2021 ; Life Cycle Status: Active ; Vocabulary: SNOMED CT Disorder of prostate (SNOMED CT :57618648 ) Name of Problem: Disorder of prostate ; Recorder: LILIANA CAMILO RN; Confirmation: Confirmed ; Classification: Patient Stated ; Code: 19467201 ; Contributor System: PowerChart ; Last Updated: 04/19/2018 9:14 EDT ; Life Cycle Date: 04/19/2018 ; Life Cycle Status: Active ; Vocabulary: SNOMED CT Diverticulitis///HX (SNOMED CT :959214056 ) Name of Problem: Diverticulitis///HX ; Recorder: RENETTA TRAYLOR RN; Confirmation: Confirmed ; Classification: Medical ; Code: 354352168 ; Contributor System: PowerChart ; Last Updated: 12/23/2018 11:46 EST ; Life Cycle Date: 12/23/2018 ; Life Cycle Status: Active ; Vocabulary: SNOMED CT Dizzy spells (occasional) (SNOMED CT :557911822 ) Name of Problem: Dizzy spells (occasional) ; Recorder: QUOC HALL RN; Confirmation: Confirmed ; Classification: Medical ; Code: 593041824 ; Contributor System: ReksoftChart ; Last Updated: 01/13/2020 11:16 EDT ; Life Cycle Date: 01/13/2020 ; Life Cycle Status: Active ; Vocabulary: SNOMED CT Fatty liver (SNOMED CT :282675130 ) Name of Problem: Fatty liver ; Recorder: QUOC HALL RN; Confirmation: Confirmed ; Classification: Medical ; Code: 497228195 ; Contributor System: ReksoftChart ; Last Updated: 01/13/2020 11:14 EDT ; Life Cycle Date: 01/13/2020 ; Life Cycle Status: Active ; Vocabulary: SNOMED CT GERD - Gastro-esophageal reflux disease (SNOMED CT :0239042340 ) Name of Problem: GERD - Gastro-esophageal reflux disease ; Recorder: RENETTA TRAYLOR RN; Confirmation: Confirmed ; Classification: Medical ; Code: 2842639555 ; Contributor System: PowerChart ; Last Updated: 12/23/2018 11:49 EST ; Life Cycle Date: 12/23/2018 ; Life Cycle Status: Active ; Vocabulary: SNOMED CT Hard of hearing (SNOMED CT :645753390 ) Name of Problem: Hard of hearing ; Recorder: LILIANA CAMILO RN; Confirmation: Confirmed ; Classification: Patient Stated ; Code: 752370472 ; Contributor System: PowerChart ; Last Updated: 04/19/2018 9:13 EDT ; Life Cycle Date: 04/19/2018 ; Life Cycle Status: Active ; Vocabulary: SNOMED CT Has been smoking for 30 years ([address] :024917575 ) Name of Problem: Has been smoking for 30 years ; Recorder: Nieves Fraga, Registered Nurse; Confirmation: Confirmed ; Classification: Patient Stated ; Code: 447915073 ; Contributor System: PowerChart ; Last Updated: 03/08/2020 10:17 EDT ; Life Cycle Date: 03/08/2020 ; Life Cycle Status: Active ; Vocabulary: SNOMED CT High cholesterol (SNOMED CT :82934712 ) Name of Problem: High cholesterol ; Recorder: Jhon Perez RN; Confirmation: Confirmed ; Classification: Medical ; Code: 82766026 ; Contributor System: PowerChart ; Last Updated: 05/24/2015 21:46 EDT ; Life Cycle Date: 05/24/2015 ; Life Cycle Status: Active ; Vocabulary: SNOMED CT HTN (hypertension) (SNOMED CT :2646448122 ) Name of Problem: HTN (hypertension) ; Recorder: Jhon Perez RN; Confirmation: Confirmed ; Classification: Medical ; Code: 9475258847 ; Contributor System: PowerChart ; Last Updated: 05/24/2015 21:45 EDT ; Life Cycle Date: 05/24/2015 ; Life Cycle Status: Active ; Vocabulary: SNOMED CT Murmur (SNOMED CT :204648363 ) Name of Problem: Murmur ; Recorder: RENETTA TRAYLOR RN; Confirmation: Confirmed ; Classification: Medical ; Code: 943965217 ; Contributor System: PowerChart ; Last Updated: 12/23/2018 11:49 EST ; Life Cycle Date: 12/23/2018 ; Life Cycle Status: Active ; Vocabulary: SNOMED CT Peripheral vascular disease (SNOMED CT :8936905511 ) Name of Problem: Peripheral vascular disease ; Recorder: LILIANA CAMILO RN; Confirmation: Confirmed ; Classification: Patient Stated ; Code: 6456218330 ; Contributor System: GrouPAY ; Last Updated: 04/19/2018 9:13 EDT ; Life Cycle Date: 04/19/2018 ; Life Cycle Status: Active ; Vocabulary: SNOMED CT Prostatitis/ (SNOMED CT :21411008 ) Name of Problem: Prostatitis/ ; Recorder: RENETTA TRAYLOR RN; Confirmation: Confirmed ; Classification: Medical ; Code: 37480162 ; Contributor System: ReksoftChart ; Last Updated: 12/23/2018 11:47 EST ; Life Cycle Status: Active ; Vocabulary: SNOMED CT Renal calculus///HX (SNOMED CT :806118159 ) Name of Problem: Renal calculus///HX ; Recorder: RENETTA TRAYLOR RN; Confirmation: Confirmed ; Classification: Medical ; Code: 582722433 ; Contributor System: ReksoftChart ; Last Updated: 12/23/2018 11:50 EST ; Life Cycle Date: 12/23/2018 ; Life Cycle Status: Active ; Vocabulary: SNOMED CT Stented coronary artery (SNOMED CT :3419591324 ) Name of Problem: Stented coronary artery ; Recorder: RENETTA TRAYLOR RN; Confirmation: Confirmed ; Classification: Medical ; Code: 3598400184 ; Contributor System: ReksoftChart ; Last Updated: 12/23/2018 11:48 EST ; Life Cycle Date: 12/23/2018 ; Life Cycle Status: Active ; Vocabulary: SNOMED CT Diagnoses(Active) Abnormal diagnostic test Date: 01/07/2022 ; Diagnosis Type: Reason For Visit ; Confirmation: Complaint of ; Clinical Dx: Abnormal diagnostic test ; Classification: Medical ; Clinical Service: Non-Specified ; Code: PNED ; Probability: 0 ; Diagnosis Code: [id number] ED Height and Weight Height Source : Stated Height Entry Format : Porter Height, Feet : 5 ft(Converted to: 152 cm, 60 Inch) Height, Inches : 9 Inch(Converted to: 0 ft 9 Inch, 22.86 cm) Clinical Height : 175.26 cm Weight Source, ED : Critical estimated dosing weight Weight Entry Format : Porter Weight, Pounds : 161 lb Clinical Dosing Weight : 73.18 kg Body Surface Area (BSA) : 1.89 m2 Body Mass Index : 23.8 kg/m2 [place] Body Weight (IBW) : 69.73 kg Ellie Villareal RN - 01/07/2022 22:58 EST Electronically signed by [facility] Conversion Talent Acquisition Consultant Cerner at 02/16/2023 4:07 PM CDT documented in this encounter Plan of Treatment Upcoming Encounters Date Type Department Care Team (Late st Contact Info) Description 03/10/2025 1:15 PM EDT Office Visit [facility] Cardiology - [place] [address] [place] [address] Tabby Mcallister PA-C [address] [address] documented as of this encounter Visit Diagnoses Not on filedocumented in this encounter Care Teams Internetworking Technician Relationship Specialty Start Date End Date Stacy Moise PA PCP - General 03/02/23 documented as of this encounter
--- OUTSIDE RECORDS SUMMARY | 2024-09-30 17:09 | XMS_ITS | Encounter Summary ---
Author Organization [employer] Address [address] [place] [address] Care Team Providers Care Toeing Stockings Name Role Phone Stacy Moise Primary Care Provider [phone] Encounter Details Date Type Department Care Team (Late st Contact Info) Description 01/08/2022 Transcribed Document [facility] [place] Formerly [facility] [place] [address] ProviderMireya MD [address] [place] [id number] Social History Tobacco Use Types Packs/Day Years Used Date Smoking Tobacco: Never Assessed Sex and Gender Information Value Date Recorded Sex Assigned at Not on file Legal Sex Male 5:25 PM CDT Gender Identity Not on file Sexual Orientation Not on file documented as of this encounter Miscellaneous Notes * Cerner Conversion Note - Mireya Osuna MD - 01/08/2022 1:34 AM ESTHETICIAN MAKEUP ARTIST Admission History, Adult Entered On: 01/08/2022 3:03 EST Performed On: 01/08/2022 1:34 EST by Francisca Rivera RN-TRAVELER Advance Directive Patient has Advance Directive *Q : No, patient refuses Advance Directive information Frnacisca Rivera RN-TRAVELER - 01/08/2022 2:53 EST Anesthesia/Transfusion History Family History of Anesthesia Reaction : No prior transfusion(s) Transfusion History : Prior anesthesia without reaction Family History of Anesthesia Reaction : None Francisca Rivera RN-TRAVELER - 01/08/2022 2:53 EST Functional Assessment Living Situation : Home Patient Lives With : Spouse Persons Assisting Patient at Home : Alone Current Daily Living Assistance : None Sensory Deficits : Hearing deficit, right ear, Hearing deficit, left ear Mobility Assistance Prior to Admission : Independent [place] Hx Falls Immediate/Within 3 Months : No Current Home Treatments : None Francisca Rivera RN-TRAVELER - 01/08/2022 2:53 EST General Info Preferred Name : scottie Mode of Arrival on Unit : Ambulatory Patient Arrival Date/Time : 01/08/2022 2:40 EST Legal Guardian : Spouse Legal Guardian : No Support Person/Patient Customer Strategy Manager : Yes Support Person/Pt Rep Name : JOAN ware Contact Password : [id number] Support Person/Pt Rep Contact Information : joan el [phone], cell Want Family/Rep/Phys Notified of Admit : No Emergency Contact #1 : JOAN MAGDY Emergency Contact #1 Emergency Contact #1 Relationship : Emergency Contact #2 : NA Emergency Contact #2 Phone Number : NA Emergency Contact #2 Relationship : NA Chief Complaint : Pt from home after having a stomach bug since thursday. went to PCP today and had labs and was told to come here for BUN of [address] May sent them. Information Obtained From : Patient Primary Language : American Preferred Communication Mode : Verbal Communication Barrier : None [place] Custodian Needed : No Francisca Rivera RN-TRAVELER - 01/08/2022 2:53 EST Fall Risk Scales ABCs Fall Injury Risk Identification : Age ABC Fall Injury Risk : Moderate to high injury risk [place] Hx Falls Immediate/Within 3 Months : No [place]man Secondary Diagnosis : Yes EASTMAN Use of Ambulatory Aid : None E[place]MAN IV Therapy or IV Access : Yes [place] Gait/Transferring : Weak [place] Mental Status : Oriented to own ability [place] Fall Risk Score : 45 E[place]MAN Fall Scale Risk Level : 25-45 Medium Risk [place] Fall Interventions : Adequate lighting, Assistive devices within reach, Bed in low position, Call device within reach, Frequent orientation to call device, Frequent orientation to surroundings, Hourly comfort/safety rounds, Non-slip footwear, Personal items within reach, Reinforced to call for assistance before getting out of bed, Room free of clutter/spills, Upper side-rails up, Wheels locked, Wires/Cords secured Francisca Rivera RN-TRAVELER - 01/08/2022 2:53 EST Health Histories Smoking Status : 10 or more cigarettes (1/2 pack or more)/day in last 30 days Smokeless Tobacco Status : Never Desires Tobacco Cessation Medication : No Reason for No Tobacco Cessation Medication : Refuses FDA approved medications Francisca Rivera RN-TRAVELER - 01/08/2022 2:53 EST Social History (As Of: 01/08/2022 03:03:08 EST) Tobacco: Smoking Status Current every day smoker. Years of Use: 55. Packs/Tins Daily: 1. (Last Updated: 11/18/2016 12:55:33 EST by LILIANA CAMILO RN) 10 or more cigarettes (1/2 pack or more)/day in last 30 days Smoking Status. Comments: 03/11/2020 0:13 - JOHNSON JACKMAN RN: Pt states he smokes 12 cigarettes per day (Last Updated: 03/11/2020 00:13:21 EDT by JOHNSON JACKMAN RN) 10 or more cigarettes (1/2 pack or more)/day in last 30 days Smoking Status. Never Smokeless Tobacco Status. Years of Use: 55. Last Used: TODAY. (Last Updated: 01/28/2021 09:23:17 EDT by Lorena Brannon RN) Alcohol: Alcohol Use History Yes. Alcohol Use Frequency Rarely. (Last Updated: 11/18/2016 12:56:54 EST by LILIANA CAMILO RN) Alcohol Use History No. Alcohol Use Frequency Socially. (Last Updated: 01/28/2021 09:23:17 EDT by Lorena Brannon RN) Substance Abuse: Drug Use Hx: No. Use in Last 12 Months: No. (Last Updated: 12/23/2018 11:55:19 EST by RENETTA TRAYLOR RN) Home/Environment: Lives with Spouse. Living situation: Home/Independent. (Last Updated: 07/21/2014 22:40:52 EDT by SON DUMONT PA-C) Height and Weight, Clinical Dosing Height Source : Stated Height Entry Format : [place] Height, Feet : 5 ft(Converted to: 152 cm, 60 Inch) Height, Inches : 9 Inch(Converted to: 0 ft 9 Inch, 22.86 cm) Clinical Height : 175.26 cm Weight Source : Bed scale Weight Entry Format : [place] Clinical Dosing Weight : 79.55 kg Weight, Pounds : 175 lb Body Surface Area (BSA) : 1.95 m2 Body Mass Index : 25.9 kg/m2 (HI) [place] Body Weight : 70 kg Francisca Rivera RN-TRAVELER - 01/08/2022 2:53 EST Infectious Disease History Does patient have symptoms of COVID-19? : No Has the Patient Been Tested for COVID-19 in the last 14 days? : No, Patient stated Does the Patient state known exposure to a COVID-19 positive case in the last 14 days? : No Patient Vaccinated for COVID-19 : Fully vaccinated Francisca Rivera RN-TRAVELER - 01/08/2022 2:53 EST Infectious Disease Risk Screening Grid Cough < 2 wks of unknown origin : NO Cough > 2 weeks : NO Blood in Sputum : NO Fever or self-reported Fever : NO Rash of unknown origin : NO Headache : NO Stiff neck : NO Night Sweats : NO Unexplained Weight Loss : NO Diarrhea (3 episode per day) : NO Francisca Rivera RN-TRAVELER - 01/08/2022 2:53 EST Physical contact outside [place] in the last 30 days : No Hospitalized in Foreign Country : No Infectious Disease History : Chicken pox/Shingles, Measles, Mumps, Pertussis (Whooping cough) INF Disease TB Screening Calc : 0 INF Disease Recent Travel Calc : 0 Francisca Rivera RN-TRAVELER - 01/08/2022 2:53 EST Influenza Vaccine Asmt, Adult Previous Vaccines from Immunization Schedule : No qualifying data available. Influenza Immunization, Current Season : Yes Francisca Rivera RN-TRAVELER - 01/08/2022 2:53 EST Pneumococcal Vaccine Previous Vaccines from Immunization Schedule : No qualifying data available. Pneumonia Immunization Received : Yes Francisca Rivera RN-TRAVELER - 01/08/2022 2:53 EST Order Details Order Detail : N/A IV Order Detail : 1 Oxygen Order Detail : 0 Nurse Collect Order Detail : 0 Lift/Transfer : Independent Central Line Order Detail : No Room Service : Appropriate Arterial Line : No Patient Needs Meds Crushed/Liquid : No Francisca Rivera RN-TRAVELER - 01/08/2022 2:53 EST Nutrition History Feeding Ability : Independent Adaptive Feeding Equipment : None Adaptive Feeding Equipment : Regular Eating Poorly Due to Decreased Appetite : No Unplanned Weight Loss in Past 3-6 Months : No Malnutrition Screening Tool Total(mal) : 0 Malnutrition Screening Tool Risk Level : Patient not at risk Francisca RiveraAYANNAJUDI - 01/08/2022 2:53 EST [place] Suicide Severity Rating Scale (C-SSRS) CSSRS Past Month Wish to be : No CSSRS Past Month Suicidal Thoughts : No CSSRS Lifetime Suicide Behavior : No Suicide Severity Rating Score : 0 Suicide Severity Rating : No Additional Care Required at this time Francisca RiveraAYANNAJUDI - 01/08/2022 2:53 EST Psychosocial History Do You Have a History of the Following? : Patient denies history Currently in Unsafe Situation : No Francisca RiveraAYANNAJUDI - 01/08/2022 2:53 EST Sleep Apnea Risk Assmt Hx of Obstructive Sleep Apnea Diagnosis : No Snore Loudly : Yes Tired, Fatigued, or Sleepy During Day : No Observed Stopping Breathing During Sleep : No Have/Are Being Treated for Hypertension : Yes BMI Greater Than 35 kg/m2 : No Age over 50 Years Old : Yes Neck Circumference Greater Than 40 cm : No Gender Male : Yes STOP-BANG Sleep Apnea Risk Level Score : 4 Francisca RiveraAYANANJUDI - 01/08/2022 2:53 EST Valuables and Belongings Valuables and Belongings : Clothing, Personal items, No comfort items, No jewelry, No assistive devices, No respiratory devices Clothing : Common streetwear Clothing Disposition : Bedside Personal Items : Cell phone Personal Items Disposition : With patient Francisca RiveraAYANNAJUDI - 01/08/2022 2:53 EST documented in this encounter Plan of Treatment Upcoming Encounters Date Type Department Care Team (Late st Contact Info) Description 03/10/2025 1:15 PM EDT Office Visit [facility] Cardiology - [place] [address] [place] [address] Tabby Mcallister PA-C [address] [facility] [address] [place] [address] documented as of this encounter Visit Diagnoses Not on filedocumented in this encounter Care Teams Toeing Stockings Relationship Specialty Start Date End Date Stacy Moise PA PCP - General 03/02/23 documented as of this encounter
--- OUTSIDE RECORDS SUMMARY | 2024-09-30 17:09 | XMS_ITS | Encounter Summary ---
Author Organization [facility] [employer] Address [address] [place] [address] Care Team Providers Care Sound Tester Name Role Phone Stacy Moise Primary Care Provider [phone] Encounter Details Date Type Department Care Team (Late st Contact Info) Description 01/08/2022 Historic Encounter [facility] [address] [place] [address] ProviderJuan Historical Social History Tobacco [...] Visit [facility] Cardiology - [place] [address] [place] [address] Tabby Mcallister PA-C [address] [place] [address] [address] [place] [address] documented as of this encounter Procedures Procedure Name Priority Date/Time Associated Diagnosis Comments CBC W/ AUTO DIFF ([facility] BKR DATA CONV) Routine 01/08/2022 6:50 AM EST documented in this encounter Results * (ABNORMAL) CBC W/ AUTO DIFF ([facility] BKR DATA CONV) (01/08/2022 6:50 AM EST) WBC 10.6(H) 3.6 - 9.5 K/uL 01/08/2022 12:01 PM EST Comment:RECOLLECTED AND CONF IRMED RBC 4.72 4.20 - 5.70 Million/uL 01/08/2022 12:01 PM EST Hgb 14.5 13.5 - 17.3 g/dL 01/08/2022 12:01 PM EST Hct 41.3 40.1 - 51.0 % 01/08/2022 12:01 PM EST MCV 87.5 79.0 - 94.8 fL 01/08/2022 12:01 PM EST MCH 30.7 25.6 - 32.2 pg 01/08/2022 12:01 PM EST MCHC 35.1 32.2 - 36.5 Gram/dL 01/08/2022 12:01 PM EST RDW 12.5 11.7 - 14.9 % 01/08/2022 12:01 PM EST Platelet Count 243 163 - 369 K/uL 01/08/2022 12:01 PM EST MPV 10.0 9.4 - 12.4 fL 01/08/2022 12:01 PM EST Blood 01/08/2022 6:50 AM EST 01/08/2022 11:57 AM EST Narrative [facility] - 01/08/2022 12:05 PM EST QUESTIONABLE RESULTS, RECOLLECT PER RN 01/08/2022 06:45:03 EST KM us Sle Historical Provider LAB BLOOD ORDERABLES Fi nal Result [facility] [address] [phone] documented in this encounter Visit Diagnoses Not on filedocumented in this encounter Care Teams Sound Tester Relationship Specialty Start Date End Date Stacy Moise PA PCP - General 03/02/23 documented as of this encounter
--- OUTSIDE RECORDS SUMMARY | 2024-09-30 17:09 | XMS_ITS | Encounter Summary ---
Author Organization [facility] [employer] Address [address] [place] [address] Care Team Providers Care Tram Driver Name Role Phone Stacy Moise Primary Care Provider [phone] Encounter Details Date Type Department Care Team (Late st Contact Info) Description 01/08/2022 Historic Encounter [facility] [address] [place] [address] ProviderJuan Historical Social History Tobacco [...] Description 03/10/2025 1:15 PM EDT Office Visit [facility] Cardiology - [place] [address] [place] [address] Tabby Mcallister PA-C [address] [place] [address] [address] [place] [address] documented as of this encounter Procedures Procedure Name Priority Date/Time Associated Diagnosis Comments URINALYSIS MICROSCOPIC ([facility] BKR DATA CONV) Routine 01/08/2022 6:28 AM EST documented in this encounter Results * (ABNORMAL) URINALYSIS MICROSCOPIC ([facility] BKR DATA CONV) (01/08/2022 6:28 AM EST) Correlate UA Correlated Correlated 01/08/2022 11:57 AM EST Ur RBC 2-5(A) /HPF 01/08/2022 11:57 AM EST Ur WBC None Seen None Seen /HPF 01/08/2022 11:57 AM EST Ur Hyaline Casts 0-2(A) /LPF 01/08/2022 11:57 AM EST 01/08/2022 6:28 AM EST 01/08/2022 11:35 AM EST Narrative [facility] - 01/08/2022 11:57 AM EST Urine Microscopic added by System. us Sle Historical Provider URINE ORDERABLES Final Result [facility] [address] [place] [address] documented in this encounter Visit Diagnoses Not on filedocumented in this encounter Care Teams Tram Driver Relationship Specialty Start Date End Date Stacy Moise PA PCP - General 03/02/23 documented as of this encounter
--- OUTSIDE RECORDS SUMMARY | 2024-09-30 17:09 | XMS_ITS | Encounter Summary ---
Author Organization [facility] Address [address] [place] [address] Care Team Providers Care Puppy Trainer Name Role Phone Unavailable Primary Care Provider Unavailabl e Encounter Details Date Type Department Care Team (Late st Contact Info) Description 01/08/2022 Historic Encounter [facility] Radiology [address] [place] [address] Arnaud Urrutia MD [facility] [place] [address] Social History Tobacco Use Types Packs/Day Years [...] Office Visit [facility] Cardiology - [place] [address] [place] [address] Tabby Mcallister PA-C 227 [facility] [address] [place] [address] documented as of this encounter Procedures Procedure Name Priority Date/Time Associated Diagnosis Comments US RENAL COMPLETE Routine 01/08/2022 9:3 6 AM EST documented in this encounter Results * US renal complete bilateral (01/08/2022 9:36 AM EST) Anatomical Region Laterality Modality Abdomen, Kidney Ultrasound 01/08/2022 9:36 AM EST Narrative 01/08/2022 5:39 PM EST RENAL ULTRASOUND HISTORY: Renal failure. PROCEDURE: Ultrasound images of the kidneys were obtained. FINDINGS: ??Limited images of the liver parenchyma demonstrate normal echogenicity. ?? The right kidney measures 11.7 x 4.8 x 4.7 cm and demonstrates a renal volume of 139 mL. There is increased echogenicity and mild renal cortical thinning. There is no hydronephrosis. There is a midpole 2.7 cm simple cyst. The left kidney measures 12.7 x 6.2 x 5.2 cm and a renal volume of 213 mL. It is normal echogenicity. There is no hydronephrosis. ??There is a posterior lower pole 3 cm simple cyst. IMPRESSION: Evidence of medical renal disease. No hydronephrosis. Bilateral renal simple cysts. Images reviewed, interpreted, and dictated by Dr. Arnaud Urrutia. Transcribed by Buck Pace (Mark). I have personally viewed, interpreted and dictated the examination. I have read and agree with the above final transcribed report. Procedure Note Arnaud Urrutia MD - 02/17/2023 RENAL ULTRASOUND HISTORY: Renal failure. PROCEDURE: Ultrasound images of the kidneys were obtained. FINDINGS: Limited images of the liver parenchyma demonstrate normal echogenicity. The right kidney measures 11.7 x 4.8 x 4.7 cm and demonstrates a renal volume of 139 mL. There is increased echogenicity and mild renal cortical thinning. There is no hydronephrosis. There is a midpole 2.7 cm simple cyst. The left kidney measures 12.7 x 6.2 x 5.2 cm and a renal volume of 213 mL. It is normal echogenicity. There is no hydronephrosis. There is a posterior lower pole 3 cm simple cyst. IMPRESSION: Evidence of medical renal disease. No hydronephrosis. Bilateral renal simple cysts. Images reviewed, interpreted, and dictated by Dr. Arnaud Urrutia. Transcribed by Buck Pace (Mark). I have personally viewed, interpreted and dictated the examination. I have read and agree with the above final transcribed report. us Arnaud Urrutia MD IMG US ORDERABLES Final Result documented in this encounter Visit Diagnoses Not on filedocumented in this encounter
--- OUTSIDE RECORDS SUMMARY | 2024-09-30 17:09 | XMS_ITS | Encounter Summary ---
Author Organization [employer] Address [address] [facility] [place] [address] Care Team Providers Care Supervisor Production Name Role Phone Stacy Moise Primary Care Provider [phone] Encounter Details Date Type Department Care Team (Late st Contact Info) Description 01/08/2022 Transcribed Document [facility] [place] [facility] [place] [address] ProviderMireya MD [address] [place] [id number] Social History Tobacco Use Types Packs/Day Years Used Date Smoking Tobacco: Never Assessed Sex and Gender Information Value Date Recorded Sex Assigned at Not on file Legal Sex Male 5:25 PM CDT Gender Identity Not on file Sexual Orientation Not on file documented as of this encounter Miscellaneous Notes * Cerner Conversion Note - Mireya ProviderMD - 01/08/2022 12:08 PM TANKER DRIVER Treatment Intervention, OT Entered On: 01/09/2022 14:26 EST Performed On: 01/09/2022 13:48 EST by CARROLL BARNETT, OTR/L General Information, OT Visit Type, OT : Treatment Note Patient Orders : Order Date Order Ordering MD 01/08/2022 05:50 OT Evaluation and Treatment Ordered By: LIA SANTOYO MD-INT 01/08/2022 12:08 OT Additional Treatment Ordered By: Active Diagnoses : 01/08/2022 12:00 Acute kidney failure, unspecified 01/08/2022 12:00 Dehydration 01/07/2022 12:00 Abnormal diagnostic test Therapy Diagnosis, OT : Decreased independence in ADLs and functional mobility Admission Date : 01/08/2022 00:21 Co-treated by, OT : Physical Therapist Personal Devices : Personal Devices No Devices Recorded Assistive Devices : Assistive Devices No Devices Recorded CARROLL BARNETT OTR/Terri - 01/09/2022 14:23 EST General Status Patient Received Status : Supine in bed Treatment Start Time : 01/09/2022 13:40 EST Patient Left Status : Supine in bed, RN/PCT informed, All needs met and within reach RN/PCT Informed Comment : MIKE tan'ed tx. Treatment End Time : 01/09/2022 13:48 EST Treatment Time : 8 Minute(s) CARROLL BARNETT OTR/Terri - 01/09/2022 14:23 EST Functional Mobility Mobility Grid Supine to Sit : Rehab Complete independence Sit to Stand : Rehab Complete independence Stand to Sit : Rehab Complete independence Sit to Supine : Rehab Complete independence CARROLL BARNETT OTR/Terri - 01/09/2022 14:23 EST Plan of Care, OT OT Tx Plan/Goals Established w Patient : Yes CARROLL BARNETT OTR/Terri - 01/09/2022 14:23 EST Fdc Goals, OT Grooming LTG Grid Goal #1 Activity : Grooming Assist : Independent, complete Date to Meet : 01/22/2022 EDT Goal Status : Initial goal CARROLL BARNETT OTR/Terri - 01/09/2022 14:23 EST Dressing, Lower Body LTG Grid Goal #1 Activity : Dressing, Lower Body Assist : Independent, complete Date to Meet : 01/22/2022 EDT Goal Status : Goal met Date Met : 01/09/2022 EST CARROLL BARNETT OTR/Terri - 01/09/2022 14:23 EST Toilet Transfer LTG Grid Goal #1 Activity : Toilet Transfer, Ambulatory Assist : Independent, complete Date to Meet : 01/22/2022 EDT Goal Status : Goal met Date Met : 01/09/2022 CARROLL HUANG OTR/Terri - 01/09/2022 14:23 EST Treatment Note Subjective Comment : Pt was agreeable, stating he was going home today. Patient's Response to Treatment : Pt tolerated tx well. Additional Objective Information : Pt was found supine upon arrival, fully dressed. Pt ambulated a functional distance with complete independence. Pt returned to the room, deferred additional need for OT services. Pt was left supine with all needs met and CL in reach. Assessment : Pt with good effort, progress toward goals. Pt is completely independent in all ADLs and functional mobility. Plan for Treatment : No further OT services are required. BARNETTCARROLL OTR/Terri - 01/09/2022 14:23 EST Pain Assessment Pain Scaled Used : 0-10 Pain scale Pain Score Pre-Intervention : 0 BARNETTCARROLL OTR/Terri - 01/09/2022 14:23 EST Image 1 - Images currently included in the form version of this document have not been included in the text rendition version of the form. Anticipated Discharge Needs, OT/PT Anticipated Discharge to : Home, independently, Home, with family care CARROLL BARNETT OTR/Terri - 01/09/2022 14:[address] [facility] OT Charges OT Ther Activities Ea 15 Min : 1 CARROLL BARNETT OTR/Terri - 01/09/2022 14:23 EST Electronically signed by [facility] Conversion Transferrer Cerner at 02/16/2023 3:45 PM CDT documented in this encounter Plan of Treatment Upcoming Encounters Date Type Department Care Team (Late st Contact Info) Description 03/10/2025 1:15 PM EDT Office Visit [facility] Cardiology - [address] [address] Tabby Mcallister PA-C [address] [address] documented as of this encounter Visit Diagnoses Not on filedocumented in this encounter Care Teams Supervisor Production Relationship Specialty Start Date End Date Stacy Moise PA PCP - General 03/02/23 documented as of this encounter
--- OUTSIDE RECORDS SUMMARY | 2024-09-30 17:09 | XMS_ITS | Encounter Summary ---
Author Organization [facility] [employer] In iatives Address [address] [facility] [place] [address] Care Team Providers Care Oleo Hasher And Renderer Name Role Phone Stacy Moise Primary Care Provider [phone] Encounter Details Date Type Department Care Team (Late st Contact Info) Description 01/08/2022 Historic Encounter [facility] [address] [place] [address] ProviderJuan Historical Social History Tobacco [...] Description 03/10/2025 1:15 PM EDT Office Visit [facility] Cardiology - [place] [address] [place] [address] Tabby Mcallister PA-C [address] [place] [address] [address] [place] [address] documented as of this encounter Procedures Procedure Name Priority Date/Time Associated Diagnosis Comments URINALYSIS UA RFLX MICROSCOPIC CULT IF IND ([facility] BKR DATA CONV) Routine 01/08/2022 1:35 AM EST documented in this encounter Results * (ABNORMAL) URINALYSIS UA RFLX MICROSCOPIC CULT IF IND ([facility] BKR DATA CONV) (01/08/2022 1:35 AM EST) Urine Type. U CleanCatch 01/08/2022 6:36 AM EST Urine Color Yellow 01/08/2022 6:40 AM EST Comment: Substances that cause HIGHLY abnormal urine color may affect the accuracy of URINE CHEMISTRY reagent strip results due to colorimetric interference. ??These include visible levels of blood or bilirubin, drugs containing dyes, and some antibiotics such as nitrofurantoin and riboflavin which can cause markedly abnormal urine coloration. Urine Appearance Cloudy(A) 01/09/20 6:40 AM EST Urine Specific Steele 1.017 1.005 - 1.030 01/08/2022 6:40 AM EST Urine pH Dipstick *5.0 6.0 - 8.0 01/08/2022 6:40 AM EST Urine Leukocyte Esterase Negative Negative 01/08/2022 6:40 AM EST Urine Nitrite Negative Negative 01/08/2022 6:40 AM EST Urine Protein Dipstick 30(A) Negative 01/08/2022 6:40 AM EST Comment:Use of urine preserv atives may elevate protein results and reduce bilirubin, blood and nitrite results. Urine Glucose Dipstick Negative Negative 01/08/2022 6:40 AM EST Urine Ketones Dipstick Negative Negative 01/08/2022 6:40 AM EST Urine Urobilinogen Dipstick 0.2 EU/dL 01/08/2022 6:40 AM EST Urine Bilirubin Dipstick Negative Negative 01/08/2022 6:40 AM EST Urine Blood Dipstick Large(A) Negative 01/08/2022 6:40 AM EST UA Indications NA 01/08/2022 7:03 AM EST Urine Culture if Indicated Not Indicated 01/08/2022 7:03 AM EST Comment: Urine Culture not ordered due to one or more of the following conditions exist: *Patient Age >= 2 *UA WBC < 10 *The always cultured reason chosen was not: Urological Procedure Immunosuppressed Organ Donor 01/08/2022 1:35 AM EST 01/08/2022 6:36 AM EST Narrative [facility] - 01/08/2022 7:03 AM EST Urinalysis UA Rflx Microscopic Cult if Ind will reflex to a culture if: Microscopic ??>= 10 WBC Patent age < 2 years old Urinalysis UA Rflx Microscopic Cult if Ind order UC Indications contains (Always Cultured) Urological Procedure(Always Cultured) Immunosuppressed(Always Cultured) Organ Donor(Always Cultured) [facility] Historical Provider URINE ORDERABLES Final Result Performing Organization Address City/State/[facility] Co de Phone Number [facility] [address] [phone] documented in this encounter Visit Diagnoses Not on filedocumented in this encounter Care Teams Oleo Hasher And Renderer Relationship Specialty Start Date End Date Stacy Moise PA PCP - General 03/02/23 documented as of this encounter
--- OUTSIDE RECORDS SUMMARY | 2024-09-30 17:09 | XMS_ITS | Encounter Summary ---
Author Organization [employer] In [employer] Address [address] [place] [address] Care Team Providers Care Hardener Helper Name Role Phone Stacy Moise Primary Care Provider [phone] Encounter Details Date Type Department Care Team (Late st Contact Info) Description 01/08/2022 Historic Encounter [facility] [address] [place] [address] Provider, [facility] MD Mireya Social History Tobacco Use Types Packs/Day Years [...] Description 03/10/2025 1:15 PM EDT Office Visit [facility] Cardiology - [place] [address] [place] [address] Tabby Mcallister PA-C [address] [place] [address] [address] [place] [address] documented as of this encounter Procedures Procedure Name Priority Date/Time Associated Diagnosis Comments CMP COMPREHENSIVE METABOLIC PANEL ([facility] DATA CONV) Routine 01/08/2022 6:01 AM EST documented in this encounter Results * (ABNORMAL) CMP COMPREHENSIVE METABOLIC PANEL ([facility] BK DATA CONV) (01/08/2022 6:01 AM EST) Sodium Level 135(L) 136 - 146 mmol/L 01/08/2022 12:05 PM EST Potassium Level 3.3(L) 3.5 - 5.1 mmol/L 01/08/2022 12:05 PM EST Chloride Level 104 102 - 112 mmol/L 01/08/2022 12:05 PM EST Carbon Dioxide Level 21 21 - 32 mmol/L 01/08/2022 12:05 PM EST Anion Gap 13 9 - 20 01/08/2022 12:05 PM EST Calcium Level 7.2(L) 8.4 - 10.1 mg/dL 01/08/2022 12:05 PM EST Glucose Level 119(H) 74 - 106 mg/dL 01/08/2022 12:05 PM EST Comment: [employer] has become aware of sulfasalazine and sulfapyridine [...] administration of the drug. Blood Urea Nitrogen 110(AA) 7 - 22 mg/dL 01/08/2022 12:05 PM EST Comment: CALLED TO:sandra foster DATE/TIME CALLED:01/08/2022 07:12:53 EST READ BACK AND VERIFIED:yes CALLED BY: hg Creatinine Level 2.40(H) 0.70 - 1.30 mg/dL 01/08/2022 12:05 PM EST Comment:Released without rep eat. Bun/Creatinine 45.8(H) 8.0 - 20.0 01/08/2022 12:05 PM EST Albumin Level 3.0(L) 3.4 - 5.0 Gram/dL 01/08/2022 12:05 PM EST Protein, Total 6.6 6.4 - 8.2 Gram/dL 01/08/2022 12:05 PM EST A/G Ratio 0.8(L) 1.1 - 2.5 01/08/2022 12:05 PM EST Alk Phos 55 27 - 136 Units/Lit er 01/08/2022 12:05 PM EST ALT 49 16 - 61 Units/Lit er 01/08/2022 12:05 PM EST Comment: [employer] has become aware of sulfasalazine and sulfapyridine [...] occur prior to administration of the drug. AST 27 5 - 37 Units/Lit er 01/08/2022 12:05 PM EST Comment: [employer] has become aware of sulfasalazine and sulfapyridine [...] occur prior to administration of the drug. Bilirubin, Total 0.6 0.2 - 1.2 mg/dL 01/08/2022 12:05 PM EST Comment: Total bilirubin results may be falsely elevated in patients undergoing treatment with eltrombopag (Promacta). Results should be correlated to clinical symptomology and additional laboratory testing including other markers for liver function, e.g., alanine aminotransferase, aspartate aminotransferase, alkaline phosphatase, and/or lactate dehydrogenase. Globulin 3.6 1.5 - 4.5 Gram/dL 01/08/2022 12:05 PM EST eGFR 32(L) >=60 mL/min/1. 73m2 01/08/2022 12:13 PM EST Comment: GFR <60 suggests chronic kidney disease, if found over 3 month period. GFR <15 indicates renal failure. eGFR NonAfrican 26(L) >=60 mL/min/1. 73m2 01/08/2022 12:13 PM EST Comment: GFR <60 suggests chronic kidney disease, if found over 3 month period. GFR <15 indicates renal failure. Blood 01/08/2022 6:01 AM EST 01/08/2022 11:20 AM EST [facility] Historical Provider LAB BLOOD ORDERABLES Final Result [facility] [address] [phone] documented in this encounter Visit Diagnoses Not on filedocumented in this encounter Care Teams Hardener Helper Relationship Specialty Start Date End Date Stacy Moise PA PCP - General 03/02/23 documented as of this encounter
--- OUTSIDE RECORDS SUMMARY | 2024-09-30 17:09 | XMS_ITS | Encounter Summary ---
Author Organization [employer] Address [address] [place] [address] Care Team Providers Care Envelope Sealing Machine Operator Name Role Phone Stacy Moise Primary Care Provider [phone] Encounter Details Date Type Department Care Team (Late st Contact Info) Description 01/08/2022 Historic Encounter [facility] [address] [place] [address] ProviderJuan Historical Social History Tobacco [...] Description 03/10/2025 1:15 PM EDT Office Visit [facility] Cardiology - [place] [address] [place] [address] Tabby Mcallister PA-C [address] [place] [address] [address] [place] [address] documented as of this encounter Procedures Procedure Name Priority Date/Time Associated Diagnosis Comments TSH Routine 01/08/2022 6:01 AM EST documented in this encounter Results * TSH (01/08/2022 6:01 AM EST) TSH 1.980 0.358 - 3.740 mcInt Units/mL 01/08/2022 12:01 PM EST Comment: Biotin supplements can cause clinically significant incorrect lab results. The FDA has seen an increase in the number of adverse events related to biotin interference with lab tests. Blood 01/08/2022 6:01 AM EST 01/08/2022 11:20 AM EST [facility] Historical Provider LAB BLOOD ORDERABLES Fi nal Result [facility] [address] [phone] documented in this encounter Visit Diagnoses Not on filedocumented in this encounter Care Teams Envelope Sealing Machine Operator Relationship Specialty Start Date End Date Stacy Moise PA PCP - General 03/02/23 documented as of this encounter
--- OUTSIDE RECORDS SUMMARY | 2024-09-30 17:09 | XMS_ITS | Encounter Summary ---
Author Organization [employer] Address [address] [place] [address] Care Team Providers Care Tax Manager Cpa Name Role Phone Stacy Miose Primary Care Provider [phone] Encounter Details Date Type Department Care Team (Late st Contact Info) Description 01/08/2022 Historic Encounter [facility] [address] [place] [address] ProviderJuan Historical Social History Tobacco [...] Description 03/10/2025 1:15 PM EDT Office Visit [facility] Cardiology - [place] [address] [place] [address] Tabby Mcallister PA-C [address] [place] [address] [address] [place] [address] documented as of this encounter Procedures Procedure Name Priority Date/Time Associated Diagnosis Comments GLUCOSE-POC Routine 01/08/2022 5:53 AM EST documented in this encounter Results * (ABNORMAL) Glucose, Point of Care (01/08/2022 5:53 AM EST) Glucose POC2 129(H) 70 - 110 mg/dL 01/08/2022 10:53 AM EST [facility] Residential Remodeling Subcontractor [id number] 01/08/2022 10:53 AM EST [facility] Device SN [id number] 01/08/2022 10:53 AM EST [facility] Device Comment1 Notified Nurse RBV 01/08/2022 10:53 AM EST [facility] Blood 01/08/2022 5:53 AM EST 01/08/2022 10:54 AM EST [facility] Historical Provider POINT OF CARE TEST ORDE LORRAINE Final Result [facility] [address] [phone] documented in this encounter Visit Diagnoses Not on filedocumented in this encounter Care Teams Tax Manager Cpa Relationship Specialty Start Date End Date Stacy Moise PA PCP - General 03/02/23 documented as of this encounter
--- OUTSIDE RECORDS SUMMARY | 2024-09-30 17:09 | XMS_ITS | Encounter Summary ---
Author Organization [employer] Address [address] [place] [address] Care Team Providers Care Carpentry Specialist Name Role Phone Stacy Moise Primary Care Provider Encounter Details Date Type Department Care Team (Late st Contact Info) Description 01/08/2022 Historic Encounter [facility] [address] [place] [address] ProviderJuan Historical Social History Tobacco [...] Description 03/10/2025 1:15 PM EDT Office Visit [facility] Cardiology - [place] [address] [place] [address] Tabby Mcallister PA-C [address] [place] [address] [address] [place] [address] documented as of this encounter Procedures Procedure Name Priority Date/Time Associated Diagnosis Comments PHOSPHORUS Routine 01/08/2022 6:01 AM EST documented in this encounter Results * PHOSPHORUS (01/08/2022 6:01 AM EST) Phosphorus 4.9 2.5 - 4.9 mg/dL 01/08/2022 12:01 PM EST Comment:high to normal Blood 01/08/2022 6:01 AM EST 01/08/2022 11:20 AM EST [facility] Historical Provider MICROBIOLOGY - GENERAL ORDERABLES Final Result Performing Organization Address City/State/[facility] Co de Phone Number [facility] [address] [phone] documented in this encounter Visit Diagnoses Not on filedocumented in this encounter Care Teams Carpentry Specialist Relationship Specialty Start Date End Date Stacy Moise PA PCP - General 03/02/23 documented as of this encounter
--- OUTSIDE RECORDS SUMMARY | 2024-09-30 17:09 | XMS_ITS | Encounter Summary ---
Author Organization [employer] Address [address] [facility] [place] [address] Care Team Providers Care Senior Finance Manager Name Role Phone Stacy Moise Primary Care Provider [phone] Encounter Details Date Type Department Care Team (Late st Contact Info) Description 01/08/2022 Historic Encounter [facility] [address] [place] [address] ProviderJuan Historical Social History Tobacco [...] Description 03/10/2025 1:15 PM EDT Office Visit [facility] Cardiology - [place] [address] [place] [address] Tabby Mcallister PA-C [address] [place] [address] [address] [place] [address] documented as of this encounter Procedures Procedure Name Priority Date/Time Associated Diagnosis Comments GLUCOSE-POC Routine 01/08/2022 10:40 AM EST documented in this encounter Results * (ABNORMAL) Glucose, Point of Care (01/08/2022 10:40 AM EST) Glucose POC2 160(H) 70 - 110 mg/dL 01/08/2022 3:40 PM EST [facility] [place] [id number] 01/08/2022 3:40 PM EST [facility] Device SN [id number] 01/08/2022 3:40 PM EST [facility] Device Comment1 Notified MD FRENCH 01/08/2022 3:40 PM EST [facility] Blood 01/08/2022 10:4 0 AM EST 01/08/2022 3:45 PM EST [facility] Historical Provider POINT OF CARE TEST ORDE LORRAINE Final Result [facility] [address] [phone] documented in this encounter Visit Diagnoses Not on filedocumented in this encounter Care Teams Senior Finance Manager Relationship Specialty Start Date End Date Stacy Moise PA PCP - General 03/02/23 documented as of this encounter
--- OUTSIDE RECORDS SUMMARY | 2024-09-30 17:09 | XMS_ITS | Encounter Summary ---
Author Organization [facility] In [employer] Address [address] [facility] [place] [address] Care Team Providers Care Line Up Worker Name Role Phone Stacy Moise Primary Care Provider [phone] Encounter Details Date Type Department Care Team (Late st Contact Info) Description 01/07/2022 Historic Encounter [facility] [address] [place] [address] ProviderJuan Historical Social History Tobacco [...] Office Visit [facility] Cardiology - [place] [address] [place] [address] Tabby Mcallister PA-C [address] [place] [address] [address] [place] [address] documented as of this encounter Procedures Procedure Name Priority Date/Time Associated Diagnosis Comments MAGNESIUM LEVEL ([facility] DATA CONV) Routine 01/07/2022 11:05 PM EST documented in this encounter Results * MAGNESIUM LEVEL ([facility] BKR DATA CONV) (01/07/2022 11:05 PM EST) Magnesium Level 1.8 1.5 - 2.4 mg/dL 01/08/2022 4:44 AM EST Blood 01/07/2022 11:0 5 PM EST 01/08/2022 4:17 AM EST [facility] Historical Provider LAB BLOOD ORDERABLES Fi nal Result Performing Organization Address City/State/[facility] Co de Phone Number [facility] [address] [phone] documented in this encounter Visit Diagnoses Not on filedocumented in this encounter Care Teams Line Up Worker Relationship Specialty Start Date End Date Stacy Moise PA PCP - General 03/02/23 documented as of this encounter
--- OUTSIDE RECORDS SUMMARY | 2024-09-30 17:09 | XMS_ITS | Encounter Summary ---
Author Organization [employer] Address [address] [place] [address] Care Team Providers Care Measurement Analyst Name Role Phone Stacy Moise Primary Care Provider [phone] Encounter Details Date Type Department Care Team (Late st Contact Info) Description 01/07/2022 Transcribed Document [facility] [place] [address] ProviderMireya MD [address] [place] [address] [id number] Social History Tobacco Use Types Packs/Day Years Used Date Smoking Tobacco: Never Assessed Sex and Gender Information Value Date Recorded Sex Assigned at Not on file Legal Sex Male 5:25 PM CDT Gender Identity Not on file Sexual Orientation Not on file documented as of this encounter Miscellaneous Notes * Cerner Conversion Note - Mireya ProviderMD - 01/07/2022 10:45 PM GRAB OPERATOR Broset Violence Assessment Entered On: 01/07/2022 23:22 EST Performed On: 01/07/2022 23:21 EST by Afua Carter RN Broset Violence Assessment Broset Violence Checklist of Symptoms : None Broset Violence Symptoms Subtotal : 0 Broset Violence Symptoms Indicator : Low risk (0) Afua Carter RN - 01/07/2022 23:21 EST documented in this encounter Plan of Treatment Upcoming Encounters Date Type Department Care Team (Late st Contact Info) Description 03/10/2025 1:15 PM EDT Office Visit [facility] Cardiology - [place] [address] [place] [address] Tabby Mcallister PA-Yuliana [address] [facility] [place] [address] [place] [address] documented as of this encounter Visit Diagnoses Not on filedocumented in this encounter Care Teams Measurement Analyst Relationship Specialty Start Date End Date Stacy Moise PA PCP - General 03/02/23 documented as of this encounter
--- OUTSIDE RECORDS SUMMARY | 2024-09-30 17:09 | XMS_ITS | Encounter Summary ---
Author Organization [facility] [employer] Address [address] [place] [address] Care Team Providers Care Process Safety Management Engineer Name Role Phone Unavailable Primary Care Provider Unavailabl e Encounter Details Date Type Department Care Team (Late st Contact Info) Description 01/08/2022 Historic Encounter [facility] Radiology [address] [place] [address] Elysia Armando MD [address] [place] [address] Social History Tobacco Use Types Packs/Day Years [...] Description 03/10/2025 1:15 PM EDT Office Visit [facility] Cardiology - [place] [address] [place] [address] Tabby Mcallister PA-C [address] [facility] [address] [place] [address] documented as of this encounter Procedures Procedure Name Priority Date/Time Associated Diagnosis Comments CT ABDOMEN/PELVIS WITHOUT IV CONTRAST Routine 01/08/2022 9:45 AM EST documented in this encounter Results * CT ABDOMEN/PELVIS WITHOUT IV CONTRAST (01/08/2022 9:45 AM EST) Anatomical Region Laterality Modality Abdomen, Pelvis Computed Tomogra phy 01/08/2022 9:45 AM EST Narrative 01/08/2022 5:[address] SCAN OF THE ABDOMEN AND PELVIS WITHOUT CONTRAST ? 01/08/2022 6:01 AM HISTORY: Generalized abdominal pain. Nephrolithiasis. COMPARISON: March 24, 2017. PROCEDURE: Axial images were obtained from the lung bases to the pubic symphysis by computed tomography. This study was performed with techniques to keep radiation doses as low as reasonably achievable, (ALARA). Individualized dose reduction techniques using automated exposure control or adjustment of mA and/or kV according to the patient size were employed. FINDINGS: ABDOMEN: There are tiny nodules identified in the lung bases which are stable compared to prior. The heart size is normal. The limited non-contrast images of the liver are unremarkable. Gallbladder is surgically absent. The spleen is unremarkable. No adrenal masses are seen. The aorta is normal in caliber. There is no significant free fluid or adenopathy. ??There are nonobstructing bilateral renal stones. There is no hydronephrosis. There are hypodense bilateral renal lesions, one of which on the left has increased in size compared to prior. However, these likely represent cysts. Note is made of a right renal artery stent. There is a small hiatal hernia. There are multiple dilated fluid-filled loops of small bowel. The terminal ileum is decompressed but thick-walled. PELVIS: The appendix is normal. The urinary bladder is unremarkable. There is no fluid or adenopathy. No acute osseous abnormality is identified. IMPRESSION: Nonobstructing bilateral nephrolithiasis. Dilated fluid-filled loops of small bowel with a decompressed but thick-walled terminal ileum. Findings are most suggestive of small bowel obstruction possibly related to Crohn's disease or other etiologies of ileitis. Images reviewed, interpreted, and dictated by Dr. Elysia Armando. Transcribed by Samir Boyd PA-C I have personally viewed, interpreted and dictated the examination. I have read and agree with the above final transcribed report. Procedure Note Elysia Armando MD - 02/17/2023 CT SCAN OF THE ABDOMEN AND PELVIS WITHOUT CONTRAST 01/08/2022 6:01 AM HISTORY: Generalized abdominal pain. Nephrolithiasis. COMPARISON: March 24, 2017. PROCEDURE: Axial images were obtained from the lung bases to the pubic symphysis by computed tomography. This study was performed with techniques to keep radiation doses as low as reasonably achievable, (ALARA). Individualized dose reduction techniques using automated exposure control or adjustment of mA and/or kV according to the patient size were employed. FINDINGS: ABDOMEN: There are tiny nodules identified in the lung bases which are stable compared to prior. The heart size is normal. The limited non-contrast images of the liver are unremarkable. Gallbladder is surgically absent. The spleen is unremarkable. No adrenal masses are seen. The aorta is normal in caliber. There is no significant free fluid or adenopathy. There are nonobstructing bilateral renal stones. There is no hydronephrosis. There are hypodense bilateral renal lesions, one of which on the left has increased in size compared to prior. However, these likely represent cysts. Note is made of a right renal artery stent. There is a small hiatal hernia. There are multiple dilated fluid-filled loops of small bowel. The terminal ileum is decompressed but thick-walled. PELVIS: The appendix is normal. The urinary bladder is unremarkable. There is no fluid or adenopathy. No acute osseous abnormality is identified. IMPRESSION: Nonobstructing bilateral nephrolithiasis. Dilated fluid-filled loops of small bowel with a decompressed but thick-walled terminal ileum. Findings are most suggestive of small bowel obstruction possibly related to Crohn's disease or other etiologies of ileitis. Images reviewed, interpreted, and dictated by Dr. Elysia Armando. Transcribed by Samir Boyd PA-C I have personally viewed, interpreted and dictated the examination. I have read and agree with the above final transcribed report. Elysia Armando MD [facility] CT ORDERABLES Final Result documented in this encounter Visit Diagnoses Not on filedocumented in this encounter
--- OUTSIDE RECORDS SUMMARY | 2024-09-30 17:09 | XMS_ITS | Encounter Summary ---
Author Organization [employer] Address [address] [facility] [place] [address] Care Team Providers Care Label Cutter Name Role Phone Stacy Moise Primary Care Provider [phone] Encounter Details Date Type Department Care Team (Late st Contact Info) Description 01/08/2022 Transcribed Document [facility] [place] [facility] [place] [address] ProviderMireya MD [address] [place] [id number] Social History Tobacco Use Types Packs/Day Years Used Date Smoking Tobacco: Never Assessed Sex and Gender Information Value Date Recorded Sex Assigned at Not on file Legal Sex Male 5:25 PM CDT Gender Identity Not on file Sexual Orientation Not on file documented as of this encounter Miscellaneous Notes * Cerner Conversion Note - Mireya ProviderMD - 01/08/2022 5:50 AM SILVERWARE ASSEMBLER Evaluation, Physical Therapy Entered On: 01/09/2022 13:56 EST Performed On: 01/09/2022 13:48 EST by KOFI JEWELL, PT General Information, PT Therapy Diagnosis, PT : Evaluation of mobility Co-treated by, PT : Occupational Therapist General Information Comment, PT : Admitted with Acute Renal Failure, Dehydration PAD, TIA, HTN, HLD, CAD, Diabetes, Hypothyroidism, Aortic Valve Disease, Arthritis, Back Pain, CAD, Cervical Spinal Stenosis, GERD KOFI JEWELL, PT - 01/09/2022 15:21 EST Visit Type, PT : Initial evaluation Patient Orders : Order Date Order Ordering MD 01/08/2022 05:50 PT Evaluation and Treatment Ordered By: LIA SANTOYO MD-INT Active Diagnoses : 01/08/2022 12:00 Acute kidney failure, unspecified 01/08/2022 12:00 Dehydration 01/07/2022 12:00 Abnormal diagnostic test Admission Date : 01/08/2022 00:21 Personal Devices : Personal Devices No Devices Recorded Assistive Devices : Assistive Devices No Devices Recorded KOFI JEWELL, PT - 01/09/2022 13:56 EST General Status Patient Received Status : Supine in bed Treatment Start Time : 01/09/2022 13:40 EST Patient Left Status : Sitting edge of bed, RN/PCT informed, Family/Visitors at bedside, Communication board completed, All needs met and within reach RN/PCT Informed Comment : OK to see per RN Treatment End Time : 01/09/2022 13:48 EST Treatment Time : 8 Minute(s) KOFI JEWELL, PT - 01/09/2022 15:21 EST History and Environment Living Situation, Therapy : Home Patient Lives With : Spouse Persons Assisting Patient at Home : Alone, Spouse Persons Providing Information : Patient Home Equipment Therapy, PT : None Home Setup : One story Bedroom Location : Main level Bathroom #1 Location : Main level Stairs : Yes Stair Location(s) : Outside Outside Stairs, Number of Steps : 4 Outside Stairs Comment : 2 front and 4 back Railing Outside : Yes Outside Railing Position : Right, going up KOFI JEWELL, PT - 01/09/2022 15:21 EST Prior Level of Function PT GRID Prior LOF Ambulation, Household : Independent Prior LOF Ambulation, Community : Independent Prior LOF Bed Mobility : Independent Prior LOF Toileting : Independent Prior LOF Transfer : Independent KOFI JEWELL, PT - 01/09/2022 15:21 EST Upper Extremity Upper Extremity Dominance : Right Right UE Active ROM : WFL Left UE Active ROM : WFL KOFI JEWELL, PT - 01/09/2022 15:21 EST Right Upper Extremity MMT Shoulder Flexion 0-180 : 4/good Elbow Flexion 0-150 : 4/good Elbow Extension 0-0 : 4/good KOFI JEWELL, PT - 01/09/2022 15:21 EST Left Upper Extremity MMT Shoulder Flexion 0-180 : 4/good Elbow Flexion 0-150 : 4/good Elbow Extension 0-0 : 4/good KOFI JEWELL, PT - 01/09/2022 15:21 EST Lower Extremity RLE Active ROM : WFL LLE Active ROM : WFL KOFI JEWELL, PT - 01/09/2022 15:21 EST Right Lower Extremity MMT Hip Flexion (0-125) : 4/good Hip Abduction (0-45) : 5/normal Hip Adduction (0-20) : 5/normal Knee Flexion (0-140) : 4/good Knee Extension (0-0) : 5/normal Ankle Dorsiflexion (0-20) : 5/normal KOFI JEWELL, PT - 01/09/2022 15:21 EST Left Lower Extremity MMT Hip Flexion (0-125) : 4/good Hip Abduction (0-45) : 5/normal Hip Adduction (0-20) : 5/normal Knee Flexion (0-140) : 4/good Knee Extension (0-0) : 5/normal Ankle Dorsiflexion (0-20) : 5/normal KOFI JEWELL, PT - 01/09/2022 15:21 EST Functional Mobility Mobility Grid Bed Roll Right : Rehab Complete independence Bed Scooting : Rehab Complete independence Supine to Sit : Rehab Complete independence Sit to Stand : Rehab Complete independence Stand to Sit : Rehab Complete independence KOFI JEWELL, PT - 01/09/2022 15:21 EST Gait Training/Assessment, PT Weight Bearing Status Maintained : Yes Weight Bearing Status : Full Gait Assistance Level : Independent, complete Walking Distance : Amb 220' Ambulatory Devices : None, Gait belt Gait Deviations : No KOFI JEWELL, PT - 01/09/2022 15:21 EST Cognition Assessment, PT Orientation : Oriented x 4 Follows Basic Command Assessment : Yes Attention Assessment : Impulsive KOFI JEWELL, PT - 01/09/2022 15:21 EST [facility] Topics Physical Therapy Education Grid Bed Mobility Training : Returns demonstration Gait Training : Returns demonstration Safety : Returns demonstration Transfer Training : Returns demonstration KOFI JEWELL, PT - 01/09/2022 15:21 EST Indication Assesessment, PT Physical Therapy Indicated : No Physical Therapy Not Indicated : Independent, complete KOFI JEWELL, PT - 01/09/2022 15:21 EST Plan of Care, PT PT Tx Plan/Goals Established w Patient : Yes PT Frequency Rehab : Discontinue BEST KOFI Holder, PT - 01/09/2022 15:21 EST Treatment Note Subjective Comment : His goal is to go home today. Patient's Response to Treatment : Ind with amb Additional Objective Information : Amb 220' Assessment : Doesn't need skilled PT. Can walk with tech or nursing staff Plan for Treatment : D/C PT KOFI JEWELL, PT - 01/09/2022 15:21 EST Pain Assessment Pain Scaled Used : 0-10 Pain scale Pain Score Pre-Intervention : 0 KOFI JEWELL, PT - 01/09/2022 15:21 EST Image 1 - Images currently included in the form version of this document have not been included in the text rendition version of the form. Anticipated Discharge Needs, OT/PT Anticipated Discharge to : Home, with family care KOFI JEWELL, PT - 01/09/2022 15:21 EST Tensed PT Charges PT Eval Moderate Complexity : 1 KOFI JEWELL, PT - 01/09/2022 15:21 EST Electronically signed by [facility] Conversion Electrical System Specialist Cerner at 02/16/2023 4:00 PM CDT documented in this encounter Plan of Treatment Upcoming Encounters Date Type Department Care Team (Late st Contact Info) Description 03/10/2025 1:15 PM EDT Office Visit [facility] Cardiology - [address] [address] Kofi Mcallister PA-C [address] [place] [address] [address] [place] [address] documented as of this encounter Visit Diagnoses Not on filedocumented in this encounter Care Teams Label Cutter Relationship Specialty Start Date End Date Stacy Moise PA PCP - General 03/02/23 documented as of this encounter
--- OUTSIDE RECORDS SUMMARY | 2024-09-30 17:09 | XMS_ITS | Encounter Summary ---
Author Organization [employer] Address [address] [place] [address] Care Team Providers Care Migratory Farm Hand Name Role Phone Stacy Moise Primary Care Provider [phone] Encounter Details Date Type Department Care Team (Late st Contact Info) Description 01/08/2022 Transcribed Document [facility] [place] [facility] [address] ProviderMireya MD [address] [place] [id number] Social History Tobacco Use Types Packs/Day Years Used Date Smoking Tobacco: Never Assessed Sex and Gender Information Value Date Recorded Sex Assigned at Not on file Legal Sex Male 5:25 PM CDT Gender Identity Not on file Sexual Orientation Not on file documented as of this encounter Miscellaneous Notes * Cerner Conversion Note - Mireya Osuna MD - 01/08/2022 10:11 AM CHEMISTRY PROFESSOR Initial Discharge Planning Entered On: 01/08/2022 10:15 EST Performed On: 01/08/2022 10:11 EST by Belgica Lundberg Stone Operator Rn Initial Assessment I Previously Documented Living Environment : No qualifying data available. Living Situation : Home Patient Lives With : Spouse Employment/Vocation : Retired Emergency Contact #1 : MAGDY [place] Emergency Contact #1 Emergency Contact #1 Relationship : Emergency Contact #2 : NA Emergency Contact #2 Phone Number : NA Emergency Contact #2 Relationship : NA Enter Doctors Name : MELVIN Raya Does Patient have PCP Listed? : Yes Legal Guardian : No Belgica Lundberg Stone Operator Rn - 01/08/2022 10:11 EST Initial Assessment II Sensory and Motor Deficits : None Current Home Treatments and Equipment : None Belgica Lundberg Stone Operator Rn - 01/08/2022 10:11 EST Discharge Needs I Anticipated Discharge To, CM : Home with day care Current Home Treatment/Equipment : Current Home Treatment/Equipment No qualifying data available. Post Acute/Home Treatments : None Documentation Status Complete : Yes Belgica Lundberg Stone Operator Rn - 01/08/2022 10:11 EST Discharge Needs II Professional Skilled Services : Professional Skilled Services No qualifying data available. Needs Assistance with Transportation : No Discharge Options Discussed with Patient : DME, Home Health, Short term rehabilitation Patient Discharge Goal : Home Belgica Lundberg Stone Operator Rn - 01/08/2022 10:11 EST Narrative Note Narrative Note : Day 1 Low RAR Patient presented to PCP with stomach bug since 01/04, labs at PCP showed BUN 111 and Creat 3.62, referred to hospital. Per chart review being treated for acute severe kidney failure, n/v/d, hyponatremia. Pending CT abd and GI panel/CDiff. Cm met with patient at bedside to explain CM role and discuss DCP. Patient ind of ADLs, lives at home with Joan. No current/history of dme, hh, home o2, rehab stays. Reports being vaccinated for covid 19. DCP: home, to transport Cm will follow Belgica Lundberg Stone Operator Rn - 01/08/2022 10:11 EST Electronically signed by Lon Pizarro Conversion Sales And Marketing Representative Cerner at 02/16/2023 4:11 PM CDT documented in this encounter Plan of Treatment Upcoming Encounters Date Type Department Care Team (Late st Contact Info) Description 03/10/2025 1:15 PM EDT Office Visit [facility] Cardiology - [place] [address] [place] [address] Tabby Mcallister PA-C [address] [facility] [address] [place] [address] documented as of this encounter Visit Diagnoses Not on filedocumented in this encounter Care Teams Migratory Farm Hand Relationship Specialty Start Date End Date Stacy Moise PA PCP - General 03/02/23 documented as of this encounter
--- OUTSIDE RECORDS SUMMARY | 2024-09-30 17:09 | XMS_ITS | Encounter Summary ---
Author Organization [employer] Address [address] [place] [address] Care Team Providers Care Ct Mri Technologist Name Role Phone Stacy Moise Primary Care Provider [phone] Encounter Details Date Type Department Care Team (Late st Contact Info) Description 01/08/2022 Historic Encounter [facility] [address] [place] [address] ProviderJuan Historical Social History Tobacco [...] Office Visit [facility] Cardiology - [place] [address] [place] [address] Tabby Mcallister PA-C [address] [place] [address] [address] [place] [address] documented as of this encounter Procedures Procedure Name Priority Date/Time Associated Diagnosis Comments GLUCOSE-POC Routine 01/08/2022 7:35 PM EST documented in this encounter Results * (ABNORMAL) Glucose, Point of Care (01/08/2022 7:35 PM EST) Glucose POC2 126(H) 70 - 110 mg/dL 01/09/2022 12:35 AM EST [facility] Community Health Consultant [id number] 01/09/2022 12:35 AM EST [facility] Device SN [id number] 01/09/2022 12:35 AM EST [facility] Device Comment1 Notified Nurse RBV 01/09/2022 12:35 AM EST [facility] Blood 01/08/2022 7:35 PM EST 01/09/2022 12:36 AM EST [facility] Historical Provider POINT OF CARE TEST ORDE LORRAINE Final Result [facility] [address] [phone] documented in this encounter Visit Diagnoses Not on filedocumented in this encounter Care Teams Ct Mri Technologist Relationship Specialty Start Date End Date Stacy Moise PA PCP - General 03/02/23 documented as of this encounter
--- OUTSIDE RECORDS SUMMARY | 2024-09-30 17:09 | XMS_ITS | Encounter Summary ---
Author Organization [employer] Address [address] [place] [address] Care Team Providers Care Mold Designer Name Role Phone Stacy Moise Primary Care Provider [phone] Encounter Details Date Type Department Care Team (Late st Contact Info) Description 01/08/2022 Transcribed Document [facility] [place] [facility] [place] [address] ProviderMireya MD [address] [place] [id number] Social History Tobacco Use Types Packs/Day Years Used Date Smoking Tobacco: Never Assessed Sex and Gender Information Value Date Recorded Sex Assigned at Not on file Legal Sex Male 5:25 PM CDT Gender Identity Not on file Sexual Orientation Not on file documented as of this encounter Miscellaneous Notes * Cerner Conversion Note - Mireya Osuna MD - 01/08/2022 5:28 AM GOLF MANAGER Provider Notification Entered On: 01/08/2022 5:29 EST Performed On: 01/08/2022 5:28 EST by Francisca Rivera RN-TRAVELER Provider Notification Provider Notified of Concerns/Results : Other: new admission with no orders and code status Provider Notified Name : LIA SANTOYO MD-INT Provider Notified Time : 01/08/2022 5:00 EST Results to Provider Comment : ordered to start with NSS @100,ML/HR Francisca Rivera RN-TRAVELER - 01/08/2022 5:28 EST Electronically signed by [facility] Conversion Director Transition Cerner at 02/16/2023 4:12 PM CDT documented in this encounter Plan of Treatment Upcoming Encounters Date Type Department Care Team (Late st Contact Info) Description 03/10/2025 1:15 PM EDT Office Visit [facility] Cardiology - [place] [address] [place] [address] Tabby Mcallister PA-Yuliana [address] [facility] [address] [place] [address] documented as of this encounter Visit Diagnoses Not on filedocumented in this encounter Care Teams Mold Designer Relationship Specialty Start Date End Date Stacy Moise PA PCP - General 03/02/23 documented as of this encounter
--- OUTSIDE RECORDS SUMMARY | 2024-09-30 17:09 | XMS_ITS | Encounter Summary ---
Author Organization [employer] Address [address] [facility] [place] [place] [address] Care Team Providers Care Yard Specialist Name Role Phone Stacy Moise Primary Care Provider [phone] Encounter Details Date Type Department Care Team (Late st Contact Info) Description 01/08/2022 Transcribed Document [facility] [place] [facility] [place] [address] ProviderMireya MD [address] [place] [id number] Social History Tobacco Use Types Packs/Day Years Used Date Smoking Tobacco: Never Assessed Sex and Gender Information Value Date Recorded Sex Assigned at Not on file Legal Sex Male 5:25 PM CDT Gender Identity Not on file Sexual Orientation Not on file documented as of this encounter Miscellaneous Notes * Cerner Conversion Note - Mireya ProviderMD - 01/08/2022 5:46 AM FURNACE REPAIRER HELPER Consult Phone Call Documentation Entered On: 01/08/2022 9:39 EST Performed On: 01/08/2022 5:46 EST by Nae Arevalo PATIENT TELEVISION CAMERA OPERATOR Phone Call for Consults Consult, Additional Information : Called Consult to donkey engine firer/fireman [facility] Nae Arevalo PATIENT TELEVISION CAMERA OPERATOR - 01/08/2022 9:37 EST documented in this encounter Plan of Treatment Upcoming Encounters Date Type Department Care Team (Late st Contact Info) Description 03/10/2025 1:15 PM EDT Office Visit [facility] Cardiology - [address] [address] Tabby Mcallister PA-C [address] [place] [address] [place] [address] documented as of this encounter Visit Diagnoses Not on filedocumented in this encounter Care Teams Yard Specialist Relationship Specialty Start Date End Date Stacy Moise PA PCP - General 03/02/23 documented as of this encounter
--- OUTSIDE RECORDS SUMMARY | 2024-09-30 17:09 | XMS_ITS | Encounter Summary ---
Author Organization [facility] [employer] Address [address] [place] [address] Care Team Providers Care Black Mill Operator Name Role Phone Stacy Moise Primary Care Provider [phone] Encounter Details Date Type Department Care Team (Late st Contact Info) Description 01/08/2022 Historic Encounter [facility] [address] [place] [address] ProviderJuan Historical Social History Tobacco [...] Description 03/10/2025 1:15 PM EDT Office Visit [facility] Cardiology - [place] [address] [place] [address] Tabby Mcallister PA-C [address] [place] [address] [address] [place] [address] documented as of this encounter Procedures Procedure Name Priority Date/Time Associated Diagnosis Comments CORONAVIRUS 2019 NOVEL ([facility] DATA CONV) Routine 01/08/2022 6:26 AM EST documented in this encounter Results * CORONAVIRUS 2019 NOVEL ([facility] BKR DATA CONV) (01/08/2022 6:26 AM EST) SARS-CoV-2 ([id number]) Negative Negative 01/08/2022 12:17 PM EST Comment: Testing was performed using RT-PCR methodology approved for use under FDA Emergency Use Authorization only. Negative results do not preclude infection with the SARS-CoV-2 virus and should not be used as the sole basis of a patient treatment or public health decisions. Negative results must be considered in the context of an individual's recent exposures, history, and presence of clinical signs/symptoms. Follow-up testing should be performed according to the current CDC recommendations. Performing Lab: [facility] 12:20 PM [facility] Reason for Testing Surveillance Intake 01/08/2022 11:17 AM [facility] First Test No 01/08/2022 11:17 AM [facility] Employed in Healthcare No 01/08/2022 11:17 AM [facility] Symptomatic as defined by CDC Yes 01/08/2022 11:17 AM [facility] Resident in congregate setting No 01/08/2022 11:17 AM [facility] No 01/08/2022 11:17 AM [facility] Hospitalized Yes 01/08/2022 11:17 AM [facility] ICU No 01/08/2022 11:17 AM [facility] 01/08/2022 6:26 AM EST 01/08/2022 11:37 AM EST [facility] Historical Provider BODY FLUIDS AND STOOLS ORDERABLES Final Result Performing Organization Address City/State/[facility] Co de Phone Number [facility] [address] [phone] documented in this encounter Visit Diagnoses Not on filedocumented in this encounter Care Teams Black Mill Operator Relationship Specialty Start Date End Date Stacy Moise PA PCP - General 03/02/23 documented as of this encounter
--- OUTSIDE RECORDS SUMMARY | 2024-09-30 17:09 | XMS_ITS | Encounter Summary ---
Author Organization [facility] [employer] Address [address] [place] [address] Care Team Providers Care Ham Doctor Name Role Phone Stacy Moise Primary Care Provider [phone] Encounter Details Date Type Department Care Team (Late st Contact Info) Description 01/08/2022 Historic Encounter [facility] [address] [place] [address] ProviderJuan Historical Social History Tobacco [...] Description 03/10/2025 1:15 PM EDT Office Visit [facility] Cardiology - [place] [address] [place] [address] Tabby Mcallister PA-C [address] [place] [address] [address] [place] [address] documented as of this encounter Procedures Procedure Name Priority Date/Time Associated Diagnosis Comments URINALYSIS MICROSCOPIC ([facility] BKR DATA CONV) Routine 01/08/2022 1:35 AM EST documented in this encounter Results * (ABNORMAL) URINALYSIS MICROSCOPIC ([facility]KR DATA CONV) (01/08/2022 1:35 AM EST) Correlate UA Correlated Correlated 01/08/2022 7:03 AM EST Ur RBC 10-20(A) /HPF 01/08/2022 7:03 AM EST Ur WBC None Seen None Seen /HPF 01/08/2022 7:03 AM EST Ur Mucous 1+(A) 01/08/2022 7:03 AM EST Ur Epithelial Cells 0-2(A) /HPF 01/08/2022 7:03 AM EST Ur Hyaline Casts 5-10(A) /LPF 01/08/2022 7:03 AM EST 01/08/2022 1:35 AM EST 01/08/2022 6:36 AM EST Narrative [facility] - 01/08/2022 7:03 AM EST Urine Microscopic added by System. Sle Historical Provider URINE ORDERABLES Final Result [facility] [address] [phone] documented in this encounter Visit Diagnoses Not on filedocumented in this encounter Care Teams Ham Doctor Relationship Specialty Start Date End Date Stacy Moise PA PCP - General 03/02/23 documented as of this encounter
--- OUTSIDE RECORDS SUMMARY | 2024-09-30 17:09 | XMS_ITS | Encounter Summary ---
Author Organization [employer] Address [address] [place] [address] Care Team Providers Care General Manager In Training Name Role Phone Stacy Moies Primary Care Provider [phone] Encounter Details Date Type Department Care Team (Late st Contact Info) Description 01/08/2022 Historic Encounter [facility] [address] [place] [address] ProviderJuan Historical Social History Tobacco [...] Office Visit [facility] Cardiology - [place] [address] [place] [address] Tabby Mcallister PA-C [address] [place] [address] [address] [place] [address] documented as of this encounter Procedures Procedure Name Priority Date/Time Associated Diagnosis Comments GLUCOSE-POC Routine 01/08/2022 5:03 PM EST documented in this encounter Results * (ABNORMAL) Glucose, Point of Care (01/08/2022 5:03 PM EST) Glucose POC2 130(H) 70 - 110 mg/dL 01/08/2022 10:03 PM EST [facility] Destination Specialist [id number] 01/08/2022 10:03 PM EST [facility] Device SN [id number] 01/08/2022 10:03 PM EST [facility] Device Comment1 Notified MD FRENCH 01/08/2022 10:03 PM EST [facility] Blood 01/08/2022 5:03 PM EST 01/08/2022 10:10 PM EST [facility] Historical Provider POINT OF CARE TEST ORDE LORRAINE Final Result [facility] [address] [phone] documented in this encounter Visit Diagnoses Not on filedocumented in this encounter Care Teams General Manager In Training Relationship Specialty Start Date End Date Stacy Moise PA PCP - General 03/02/23 documented as of this encounter
--- OUTSIDE RECORDS SUMMARY | 2024-09-30 17:09 | XMS_ITS | Encounter Summary ---
Author Organization [employer] Address [address] [facility] [address] Care Team Providers Care Character Actress Name Role Phone Stacy Moise Primary Care Provider [phone] Encounter Details Date Type Department Care Team (Late st Contact Info) Description 01/08/2022 Transcribed Document [facility] [place] Replaced by [facility] [place] [address] ProviderMireya MD [address] [place] [address] [phone] Social History Tobacco Use Types Packs/Day Years Used Date Smoking Tobacco: Never Assessed Sex and Gender Information Value Date Recorded Sex Assigned at Not on file Legal Sex Male 5:25 PM CDT Gender Identity Not on file Sexual Orientation Not on file documented as of this encounter Miscellaneous Notes * Cerner Conversion Note - Mireya ProviderMD - 01/08/2022 5:00 AM PRODUCTION FINISHER Chart Check - Review Order Profile Entered On: 01/08/2022 4:19 EST Performed On: 01/08/2022 5:00 EST by Francisca Rivera RN-TRAVELER Chart Check Powerplans Initiated/Discontinued as Appropriate : Yes All Active Orders Reviewed : Yes Francisca Rivera RN-TRAVELER - 01/08/2022 4:19 EST documented in this encounter Plan of Treatment Upcoming Encounters Date Type Department Care Team (Late st Contact Info) Description 03/10/2025 1:15 PM EDT Office Visit [facility] Cardiology - [address] [address] Tabby Mcallister PA-C [address] [email or web address] [address] [place] [address] documented as of this encounter Visit Diagnoses Not on filedocumented in this encounter Care Teams Character Actress Relationship Specialty Start Date End Date Stacy Moise PA PCP - General 03/02/23 documented as of this encounter
--- OUTSIDE RECORDS SUMMARY | 2024-09-30 17:09 | XMS_ITS | Encounter Summary ---
Author Organization [facility] [employer] Address [address] [place] [address] Care Team Providers Care Drying Tunnel Operator Name Role Phone Stacy Moise Primary Care Provider [phone] Encounter Details Date Type Department Care Team (Late st Contact Info) Description 01/07/2022 Historic Encounter [facility] [address] [place] [address] ProviderJuan Historical Social History Tobacco [...] Description 03/10/2025 1:15 PM EDT Office Visit [facility] Cardiology - [place] [address] [place] [address] Tabby Mcallister PA-C [address] [place] [address] [address] [place] [address] documented as of this encounter Procedures Procedure Name Priority Date/Time Associated Diagnosis Comments DIFFERENTIAL MANUAL ([facility] BKR DATA CONV) Routine 01/07/2022 11:05 PM EST documented in this encounter Results * (ABNORMAL) DIFFERENTIAL MANUAL ([facility] BKR DATA CONV) (01/07/2022 11:05 PM EST) RBC Morphology Normal 01/08/2022 4:[address] Estimate Adequate Adequate 01/08/2022 4:57 AM EST Neutrophil Percent Man 62 50 - 65 % 01/08/2022 4:57 AM EST Band Percent Man 1(L) 5 - 11 % 01/08/2022 4:57 AM EST Lymph Percent Man 11(L) 24 - 44 % 01/08/2022 4:57 AM EST [place] Percent Man 26(H) 4 - 5 % 01/08/2022 4:57 AM EST ANC# 9 K/uL 01/08/2022 4:57 AM EST ALYC# 2 K/uL 01/08/2022 4:57 AM EST Blood 01/07/2022 11:0 5 PM EST 01/08/2022 4:17 AM EST Narrative [facility] - 01/08/2022 4:57 AM EST Ordered By Discern Expert Rule Sle Historical Provider LAB BLOOD ORDERABLES Fi nal Result Performing Organization Address [facility]/State/[facility] Co de Phone Number [facility] [address] [phone] documented in this encounter Visit Diagnoses Not on filedocumented in this encounter Care Teams Drying Tunnel Operator Relationship Specialty Start Date End Date Stacy Moise PA PCP - General 03/02/23 documented as of this encounter
--- OUTSIDE RECORDS SUMMARY | 2024-09-30 17:09 | XMS_ITS | Encounter Summary ---
Author Organization [facility] [employer] Address [address] [facility] [place] [address] Care Team Providers Care Wastewater Design Engineer Name Role Phone Stacy Moise Primary Care Provider [phone] Encounter Details Date Type Department Care Team (Late st Contact Info) Description 01/08/2022 Historic Encounter [facility] [address] [place] [address] ProviderJuan Historical Social History Tobacco [...] Description 03/10/2025 1:15 PM EDT Office Visit [facility] Cardiology - [place] [address] [place] [address] Tabby Mcallister PA-C [address] [place] [address] [address] [place] [address] documented as of this encounter Procedures Procedure Name Priority Date/Time Associated Diagnosis Comments URINALYSIS UA RFLX MICROSCOPIC CULT IF IND ([facility] BKR DATA CONV) Routine 01/08/2022 6:28 AM EST documented in this encounter Results * (ABNORMAL) URINALYSIS UA RFLX MICROSCOPIC CULT IF IND ([facility] BKR DATA CONV) (01/08/2022 6:28 AM EST) Urine Type. U CleanCatch 01/08/2022 11:35 AM EST Urine Color Yellow 01/08/2022 11:42 AM EST Comment: Substances that cause HIGHLY abnormal urine color may affect the accuracy of URINE CHEMISTRY reagent strip results due to colorimetric interference. ??These include visible levels of blood or bilirubin, drugs containing dyes, and some antibiotics such as nitrofurantoin and riboflavin which can cause markedly abnormal urine coloration. Urine Appearance Clear 01/09/20 11:42 AM EST Urine Specific [place] 1.017 1.005 - 1.030 01/08/2022 11:42 AM EST Urine pH Dipstick 5.5(L) 6.0 - 8.0 01/08/2022 11:42 AM EST Urine Leukocyte Esterase Negative Negative 01/08/2022 11:42 AM EST Urine Nitrite Negative Negative 01/08/2022 11:42 AM EST Urine Protein Dipstick Trace(A) Negative 01/08/2022 11:42 AM EST Comment:Use of urine preserv atives may elevate protein results and reduce bilirubin, blood and nitrite results. Urine Glucose Dipstick Negative Negative 01/08/2022 11:42 AM EST Urine Ketones Dipstick Negative Negative 01/08/2022 11:42 AM EST Urine Urobilinogen Dipstick 0.2 EU/dL 01/08/2022 11:42 AM EST Urine Bilirubin Dipstick Negative Negative 01/08/2022 11:42 AM EST Urine Blood Dipstick Moderate(A) Negative 01/08/2022 11:42 AM EST UA Indications NA 01/08/2022 11:57 AM EST Urine Culture if Indicated Not Indicated 01/08/2022 11:57 AM EST Comment: Urine Culture not ordered due to one or more of the following conditions exist: *Patient Age >= 2 *UA WBC < 10 *The always cultured reason chosen was not: Urological Procedure Immunosuppressed Organ Donor 01/08/2022 6:28 AM EST 01/08/2022 11:[address] [facility] - 01/08/2022 11:57 AM EST Urinalysis UA Rflx Microscopic Cult if Ind will reflex to a culture if: Microscopic ??>= 10 WBC Patent age < 2 years old Urinalysis UA Rflx Microscopic Cult if Ind order UC Indications contains (Always Cultured) Urological Procedure(Always Cultured) Immunosuppressed(Always Cultured) Organ Donor(Always Cultured) [facility] Historical Provider URINE ORDERABLES Final Result Performing Organization Address City/State/[facility] Co de Phone Number [facility] [address] [phone] documented in this encounter Visit Diagnoses Not on filedocumented in this encounter Care Teams Wastewater Design Engineer Relationship Specialty Start Date End Date Stacy Moise PA PCP - General 03/02/23 documented as of this encounter
--- OUTSIDE RECORDS SUMMARY | 2024-09-30 17:09 | XMS_ITS | Encounter Summary ---
Author Organization [employer] Address [address] [facility] [place] [address] Care Team Providers Care Instant Potato Processing Supervisor Name Role Phone Stacy Moise Primary Care Provider [phone] Encounter Details Date Type Department Care Team (Late st Contact Info) Description 01/09/2022 Transcribed Document [facility] [place] [facility] [place] [address] ProviderMireya MD [address] [place] [address] [id number] Social History Tobacco Use Types Packs/Day Years Used Date Smoking Tobacco: Never Assessed Sex and Gender Information Value Date Recorded Sex Assigned at Not on file Legal Sex Male 5:25 PM CDT Gender Identity Not on file Sexual Orientation Not on file documented as of this encounter Miscellaneous Notes * Cerner Conversion Note - Mireya ProviderMD - 01/09/2022 3:15 PM PROJECT MANAGEMENT INSTRUCTOR Nursing Discharge Summary Entered On: 01/09/2022 15:15 EST Performed On: 01/09/2022 15:15 EST by Angie Banks, Rn Mds-Nursing Discharge Documentation Discharge Date/Time : 01/09/2022 15:15 EST Patient Disposition, General : Discharge Discharge To : Home with ambulatory/outpatient follow-up Mode Of Departure, General Discharge : Wheelchair Accompanied By, Discharge : Spouse IV Discontinued : Yes Personal Belongings With Patient : Yes Pt's Own Supply of Medications Returned : No patient supply of medications to return Prescriptions Given to Patient : No Medications Given to Patient : No Discharge Instructions Reviewed With, Opportunity For Questions Given : Patient, Spouse Patient Education Completed : Yes Teaching Method : Explanation Teaching Evaluation : Verbalizes understanding Worker's Compensation Paperwork Completed : No Angie Banks, Rn Mds-Nursing - 01/09/2022 15:15 EST documented in this encounter Plan of Treatment Upcoming Encounters Date Type Department Care Team (Late st Contact Info) Description 03/10/2025 1:15 PM EDT Office Visit [facility] Cardiology - [place] [address] [place] [address] Tabby Mcallister PA-C [address] [facility] [address] [place] [address] documented as of this encounter Visit Diagnoses Not on filedocumented in this encounter Care Teams Instant Potato Processing Supervisor Relationship Specialty Start Date End Date Stacy Moise PA PCP - General 03/02/23 documented as of this encounter
--- OUTSIDE RECORDS SUMMARY | 2024-09-30 17:09 | XMS_ITS | Encounter Summary ---
Author Organization [employer] Address [address] [facility] [place] [address] Care Team Providers Care Coffee Weigher Name Role Phone Stacy Moise Primary Care Provider [phone] Encounter Details Date Type Department Care Team (Late st Contact Info) Description 01/07/2022 Historic Encounter [facility] [address] [place] [address] Provider, [facility] MD Mireya Social History Tobacco Use Types [...] Description 03/10/2025 1:15 PM EDT Office Visit [facility] Cardiology - [place] [address] [place] [address] Tabby Mcallister PA-C [address] [place] [address] [address] [place] [address] documented as of this encounter Procedures Procedure Name Priority Date/Time Associated Diagnosis Comments BMP BASIC METABOLIC PANEL ([facility] BK DATA CONV) Routine 01/07/2022 11:05 PM EST documented in this encounter Results * (ABNORMAL) BMP BASIC METABOLIC PANEL ([facility] BKR DATA CONV) (01/07/2022 11:05 PM EST) Glucose Level 181(H) 74 - 106 mg/dL 01/08/2022 4:44 AM EST Comment: [employer] has become aware of sulfasalazine and sulfapyridine [...] administration of the drug. Blood Urea Nitrogen 127(AA) 7 - 22 mg/dL 01/08/2022 4:44 AM EST Comment: CALLED TO:kenan bustos DATE/TIME CALLED:01/07/2022 23:55:36 EST READ BACK AND VERIFIED:y CALLED BY: sina Creatinine Level 3.70(H) 0.70 - 1.30 mg/dL 01/08/2022 4:44 AM EST Sodium Level 129(L) 136 - 146 mmol/L 01/08/2022 4:44 AM EST Potassium Level 3.5 3.5 - 5.1 mmol/L 01/08/2022 4:44 AM EST Chloride Level 97(L) 102 - 112 mmol/L 01/08/2022 4:44 AM EST Carbon Dioxide Level 18(L) 21 - 32 mmol/L 01/08/2022 4:44 AM EST Anion Gap 18 9 - 20 01/08/2022 4:44 AM EST Calcium Level 7.6(L) 8.4 - 10.1 mg/dL 01/08/2022 4:44 AM EST Bun/Creatinine 34.3(H) 8.0 - 20.0 01/08/2022 4:44 AM EST eGFR NonAfrican 16(L) >=60 mL/min/1. 73m2 01/08/2022 4:55 AM EST Comment: GFR <60 suggests chronic kidney disease, if found over 3 month period. GFR <15 indicates renal failure. eGFR 19(L) >=60 mL/min/1. 73m2 01/08/2022 4:55 AM EST Comment: GFR <60 suggests chronic kidney disease, if found over 3 month period. GFR <15 indicates renal failure. Blood 01/07/2022 11:0 5 PM EST 01/08/2022 4:17 AM EST [facility] Historical Provider LAB BLOOD ORDERABLES Final Result [facility] [address] [phone] documented in this encounter Visit Diagnoses Not on filedocumented in this encounter Care Teams Coffee Weigher Relationship Specialty Start Date End Date Stacy Moise PA PCP - General 03/02/23 documented as of this encounter
--- OUTSIDE RECORDS SUMMARY | 2024-09-30 17:09 | XMS_ITS | Encounter Summary ---
Author Organization [employer] Address [address] [place] [address] Care Team Providers Care Advertisement Distributor Name Role Phone Stacy Moise Primary Care Provider [phone] Encounter Details Date Type Department Care Team (Late st Contact Info) Description 01/08/2022 Transcribed Document [facility] [place] Medicine [facility] [place] [address] ProviderMireya MD [address] [place] [id number] Social History Tobacco Use Types Packs/Day Years Used Date Smoking Tobacco: Never Assessed Sex and Gender Information Value Date Recorded Sex Assigned at Not on file Legal Sex Male 5:25 PM CDT Gender Identity Not on file Sexual Orientation Not on file documented as of this encounter Miscellaneous Notes * Cerner Conversion Note - Mireya ProviderMD - 01/08/2022 2:45 AM JET DYEING MACHINE OPERATOR Meds to Bed Enrollment Entered On: 01/08/2022 10:27 EST Performed On: 01/08/2022 2:45 EST by Benito Mckeon, Plastic Top Assembler Cert Lead Meds to Bed Enrollment Patient Enrollment Decision: : No/do not enroll in meds to bed program Reason for Declining Meds to Bed Program: : Prefer to use home pharmacy Benito Mckeon Plastic Top Assembler Cert Lead - 01/08/2022 10:27 EST documented in this encounter Plan of Treatment Upcoming Encounters Date Type Department Care Team (Late st Contact Info) Description 03/10/2025 1:15 PM EDT Office Visit [facility] Cardiology - [place] [address] [place] [address] Tabby Mcallister PA-C 227 [facility] [address] [place] [address] documented as of this encounter Visit Diagnoses Not on filedocumented in this encounter Care Teams Advertisement Distributor Relationship Specialty Start Date End Date Stacy Moise PA PCP - General 03/02/23 documented as of this encounter
--- OUTSIDE RECORDS SUMMARY | 2024-09-30 17:09 | XMS_ITS | Encounter Summary ---
Author Organization [employer] Address [address] [place] [address] Care Team Providers Care Heating Technician Name Role Phone Stacy Moise Primary Care Provider [phone] Encounter Details Date Type Department Care Team (Late st Contact Info) Description 01/09/2022 Transcribed Document [facility] [place] [facility] [place] [address] ProviderMireya MD [address] [place] [phone] Social History Tobacco Use Types Packs/Day Years Used Date Smoking Tobacco: Never Assessed Sex and Gender Information Value Date Recorded Sex Assigned at Not on file Legal Sex Male 5:25 PM CDT Gender Identity Not on file Sexual Orientation Not on file documented as of this encounter Miscellaneous Notes * Cerner Conversion Note - Mireya ProviderMD - 01/09/2022 11:43 AM MANAGER STATE Consult Phone Call Documentation Entered On: 01/09/2022 11:55 EST Performed On: 01/09/2022 11:43 EST by FAWAD COLLINS Float Brand Marketing Coordinator-Health Unit Phone Call for Consults Consult Phone Call/Page Attempt : First call Consult Reason : Further evaluation of ileitis Physician Covering for Consult : MONIQUE WILSON MD Date and Time Call Returned : 01/09/2022 11:54 EST Consult, Additional Information : Spoke with Dr. Wilson @ 11:54 FAWAD COLLINS Float Brand Marketing Coordinator-Health Unit - 01/09/2022 11:52 EST documented in this encounter Plan of Treatment Upcoming Encounters Date Type Department Care Team (Late st Contact Info) Description 03/10/2025 1:15 PM EDT Office Visit [facility] Cardiology - [place] [address] [place] [address] Tabby Mcallister PA-Yuliana 227 [facility] [address] [place] [address] documented as of this encounter Visit Diagnoses Not on filedocumented in this encounter Care Teams Heating Technician Relationship Specialty Start Date End Date Stacy Moise PA PCP - General 03/02/23 documented as of this encounter
--- OUTSIDE RECORDS SUMMARY | 2024-09-30 17:09 | XMS_ITS | Encounter Summary ---
Author Organization [employer] Address [address] [facility] [place] [address] Care Team Providers Care Kennel Assistant Name Role Phone Stacy Moise Primary Care Provider [phone] Encounter Details Date Type Department Care Team (Late st Contact Info) Description 01/09/2022 Transcribed Document [facility] [place] Family [place] [address] ProviderMireya MD [address] [place] [address] [phone] Social History Tobacco Use Types Packs/Day Years Used Date Smoking Tobacco: Never Assessed Sex and Gender Information Value Date Recorded Sex Assigned at Not on file Legal Sex Male 5:25 PM CDT Gender Identity Not on file Sexual Orientation Not on file documented as of this encounter Miscellaneous Notes * Cerner Conversion Note - Historical ProviderMD - 01/09/2022 3:28 PM BEE TENDER Discharge Summary, PT Entered On: 01/09/2022 15:29 EST Performed On: 01/09/2022 15:28 EST by KOFI JEWELL, PT Discharge Summary Reason for Discharge : Other: Pt ind with amb Discharge Summary Comment, PT : Pt ind with amb. No goals set due to pt seen only for initial evaluation. KOFI JEWELL, PT - 01/09/2022 15:28 EST documented in this encounter Plan of Treatment Upcoming Encounters Date Type Department Care Team (Late st Contact Info) Description 03/10/2025 1:15 PM EDT Office Visit [facility] Cardiology - [address] [place] [address] Kofi Mcallister PA-C [address] [facility] [place] [address] [place] [address] documented as of this encounter Visit Diagnoses Not on filedocumented in this encounter Care Teams Kennel Assistant Relationship Specialty Start Date End Date Stacy Moise PA PCP - General 03/02/23 documented as of this encounter
--- OUTSIDE RECORDS SUMMARY | 2024-09-30 17:09 | XMS_ITS | Encounter Summary ---
Author Organization [facility] [employer] Address [address] [facility] [place] [address] Care Team Providers Care Customs Director Name Role Phone Stacy Moise Primary Care Provider [phone] Encounter Details Date Type Department Care Team (Late st Contact Info) Description 01/08/2022 Historic Encounter [facility] [address] [place] [address] ProviderJuan Historical Social History Tobacco [...] Visit [facility] Cardiology - [place] [address] [place] [address] Tabby Mcallister PA-C [address] [place] [address] [address] [place] [address] documented as of this encounter Procedures Procedure Name Priority Date/Time Associated Diagnosis Comments DIFFERENTIAL MANUAL ([facility] BKR DATA CONV) Routine 01/08/2022 6:50 AM EST documented in this encounter Results * (ABNORMAL) DIFFERENTIAL MANUAL ([facility] BKR DATA CONV) (01/08/2022 6:50 AM EST) RBC Morphology Normal 01/08/2022 2:[address] Estimate Adequate Adequate 01/08/2022 2:45 PM EST Neutrophil Percent Man 65 50 - 65 % 01/08/2022 2:45 PM EST Band Percent Man 1(L) 5 - 11 % 01/08/2022 2:45 PM EST Lymph Percent Man 14(L) 24 - 44 % 01/08/2022 2:45 PM EST [place] Percent Man 19(H) 4 - 5 % 01/08/2022 2:45 PM EST Eos Percent Man 1 0 - 3 % 2:45 PM EST Baso Percent Man 0 0 - 1 % 01/08/2022 2:45 PM EST Blood 01/08/2022 6:50 AM EST 01/08/2022 11:57 AM EST Narrative [facility] - 01/08/2022 2:45 PM EST Ordered By Discern Expert Rule us Sle Historical Provider LAB BLOOD ORDERABLES Fi nal Result Performing Organization Address City/State/[facility] Co de Phone Number [facility] [address] [phone] documented in this encounter Visit Diagnoses Not on filedocumented in this encounter Care Teams Customs Director Relationship Specialty Start Date End Date Stacy Moise PA PCP - General 03/02/23 documented as of this encounter
--- OUTSIDE RECORDS SUMMARY | 2024-09-30 17:09 | XMS_ITS | Encounter Summary ---
Author Organization [employer] Address [address] [place] [address] Care Team Providers Care Drum Builder Name Role Phone Stacy Moise Primary Care Provider [phone] Encounter Details Date Type Department Care Team (Late st Contact Info) Description 01/09/2022 Transcribed Document [facility] [place] [address] [place] [address] ProviderMireya MD [facility] [place], [place] [phone] Social History Tobacco Use Types Packs/Day Years Used Date Smoking Tobacco: Never Assessed Sex and Gender Information Value Date Recorded Sex Assigned at Not on file Legal Sex Male 5:25 PM CDT Gender Identity Not on file Sexual Orientation Not on file documented as of this encounter Miscellaneous Notes * Cerner Conversion Note - Mireya ProviderMD - 01/09/2022 3:14 PM PLATE GRAINER APPRENTICE Stroke/Warfarin Instructions Entered On: 01/09/2022 15:14 EST Performed On: 01/09/2022 15:14 EST by Angie Banks Front End Software Engineer-Nursing Stroke/Warfarin Instructions Stroke/TIA Discharge Ins : N/A Warfarin Discharge Ins : N/A Angie Banks Front End Software Engineer-Nursing - 01/09/2022 15:14 EST Education Topics: Anticoagulant Education Anticoagulant : Anticoagulant other than warfarin Compliance Issues *Q : Other: NA Diet *Q : Other: NA Adverse drug reactions/interactions *Q : Other: NA Action/Interaction with Other Drugs : Other: NA Follow-up care/monitoring *Q : Other: NA Follow-up Care Details : Other: NA [place], Angie, Front End Software Engineer-Nursing - 01/09/2022 15:14 EST Electronically signed by Juarez, [facility] Conversion Electronic Publishing Specialist Cerner at 02/16/2023 3:59 PM CDT documented in this encounter Plan of Treatment Upcoming Encounters Date Type Department Care Team (Late st Contact Info) Description 03/10/2025 1:15 PM EDT Office Visit [facility] Cardiology - [place] [address] [place] [address] Tabby Mcallister PA-C [address] [facility] [address] [place] [address] documented as of this encounter Visit Diagnoses Not on filedocumented in this encounter Care Teams Drum Builder Relationship Specialty Start Date End Date Stacy Moise PA PCP - General 03/02/23 documented as of this encounter
--- OUTSIDE RECORDS SUMMARY | 2024-09-30 17:09 | XMS_ITS | Encounter Summary ---
Author Organization [facility] [employer] Address [address] [place] [address] Care Team Providers Care Prosecuting Attorney Name Role Phone Stacy Moise Primary Care Provider [phone] Encounter Details Date Type Department Care Team (Late st Contact Info) Description 01/08/2022 Historic Encounter [facility] [address] [place] [address] ProviderJuan Historical Social History Tobacco [...] Office Visit [facility] Cardiology - [place] [address] [place] [address] Tabby Mcallister PA-C [address] [place] [address] [address] [place] [address] documented as of this encounter Procedures Procedure Name Priority Date/Time Associated Diagnosis Comments LACTIC ACID LEVEL ([facility] DATA CONV) Routine 01/08/2022 6:14 AM EST documented in this encounter Results * LACTIC ACID LEVEL ([facility] DATA CONV) (01/08/2022 6:14 AM EST) Lactic Acid Level 1.2 0.4 - 2.0 mmol/L 01/08/2022 11:52 AM EST Blood 01/08/2022 6:14 AM EST 01/08/2022 11:21 AM EST [facility] Historical Provider LAB BLOOD ORDERABLES Fi nal Result Performing Organization Address City/State/[facility] Co de Phone Number [facility] [address] [phone] documented in this encounter Visit Diagnoses Not on filedocumented in this encounter Care Teams Prosecuting Attorney Relationship Specialty Start Date End Date Stacy Moise PA PCP - General 03/02/23 documented as of this encounter
--- OUTSIDE RECORDS SUMMARY | 2024-09-30 17:09 | XMS_ITS | Encounter Summary ---
Author Organization [employer] Address [address] [place] [address] Care Team Providers Care Head Porter Name Role Phone Stacy Moise Primary Care Provider [phone] Encounter Details Date Type Department Care Team (Late st Contact Info) Description 01/08/[address] [facility] Family [place] [facility] [place] [address] ProviderMireya MD [address] [place] [id number] Social History Tobacco Use Types Packs/Day Years Used Date Smoking Tobacco: Never Assessed Sex and Gender Information Value Date Recorded Sex Assigned at Not on file Legal Sex Male 5:25 PM CDT Gender Identity Not on file Sexual Orientation Not on file documented as of this encounter Miscellaneous Notes * Cerner Conversion Note - Mireya Osuna MD - 01/08/2022 5:52 AM STILL CLEANER Patient: SCOTTIE CURRAN Age: 76 Years Sex: Male : 1945 Chief Complaint Pt from home after having a stomach bug since Thursday. went to PCP today and had labs and was told to come here for BUN of 111 and Creat 3.[address] May. Admit date: 01/08/2022 History of Present Illness 76-year-old male with a past medical history significant for PAD, TIA hypertension, hyperlipidemia, coronary artery disease, diabetes, hypothyroidism, who presents to the emergency department for evaluation of acute renal failure. Patient suffered from what was thought to be a viral illness on Thursday, Thursday, improving Thursday. He had copious nausea, vomiting, watery diarrhea. He saw his primary care doctor on Thursday and while symptoms were improving, labs were sent and did demonstrate that he has a creatinine of 3.6 and a BUN of 111. He was told to come to the emergency room for further management. Patient here complains of feeling fatigued and a small amount of residual lower abdominal discomfort. Vomiting and diarrhea has resolved. Decreased urination, but no dysuria. in ER UA showed lots of red cell, but no wbc. He told me now he has no abd pain , no n/v/d now. he said he had covid vanccine. he deny cough or fever today, no chest pain or SOB. no PATRICIA. he also has hyponatremia now. Review of Systems GEN: no fever, no weight loss. HEENT: No blurred vision. no headache. Pulmonary: no cough and sob. No hemoptysis. CARDIAC: no chest pain. GI SYSTEM: had nausea, vomiting and diarrhea SYSTEM: no UTI. had h/o kidney stone NEUROLOGY no seizure, no vertigo. MS: no chronic back pain VASCULAR: no claudication, no cramping leg pain ENDOCRINOLOGY: . No tremor. No cold or heat intolerance. DERMATOLOGY: No rash. No dryness. PSYCHIATRY: positive for anxiety. all other systems are negative Vital Signs T: 36.8 ??C TMIN: 36.6 ??C TMAX: 36.8 ??C HR: 71(Monitored) RR: 15 BP: 126/72 SpO2: 98% HT: 175.26 cm WT: 79.55 kg BMI: 25.9 Oxygen Settings (Last) Oxygen Therapy Mode: Room air (01/08/22 05:05:00) Physical Exam GENERAL: The patient is anxiety , but awake Eyes: Pupils PERRLA. ENT: No discharge from ear, nose, throat NECK: No JVD. No mass. PULMONARY: Bilateral breath sounds equal. Scattered rhonchi. Palpation normal. Percussion normal. CVS SYSTEM: S1, S2 normal. No murmur. No click. No S3 or S4. ABDOMEN: Soft. No hernia. Bowel sounds normal. No rebound. MUSCULOSKELETAL: Head and neck, no trauma. Bilateral legs no edema. urology: no swelling, gross bleeding or hematuria SKIN: No rash. No ulcerative change NEUROLOGIC: The patient is awake, but he is anxiety and move his legs and arms freely, no focal neuro deficit Psychiatry: positive anxiety Assessment/Plan Acute severe kidney failure severe dehydration N/V/D- possible gastrienteritis- need r/o covid infection hyponatremia microscopic hematuria on admit hypothyroidism h/o coronary artery disease with stents h/o Cervical spinal stenosis type 2 Diabetes BPH GERD hyperlipidemia hypertension Peripheral vascular disease h/o kidney stone tobacco use PLAN admit to tele bed start ivf sailne US of kidney, repeat UA tomorrow CT of abd to r/o kidney stone insulin ss close watch Cr level renal consult hold lisinopril and lasix cont statin and plavix heparin sq ppi GI panel/ c diff long d/w patient and nurse 65 min on case today Orders: amLODIPine, 10 mg, Oral, Tab, Daily, Routine, Start 01/08/22 9:00:00 EST, 01/08/22 6:17:00 EST atorvastatin, 40 mg, Oral, Tab, Daily, Routine, Start 01/08/22 9:00:00 EST, 01/08/22 6:17:00 EST clopidogrel, 75 mg, Oral, Tab, Daily, Routine, Start 01/08/22 9:00:00 EST, 01/08/22 6:17:00 EST docusate, 100 mg, Oral, Cap, BID, PRN for Constipation, Routine, Start 01/08/22 6:20:00 EST, 01/08/22 6:20:00 EST finasteride, 5 mg, Oral, Tab, Daily, Routine, Start 01/08/22 9:00:00 EST, 01/08/22 6:17:00 EST gemfibrozil, 600 mg, Oral, Tab, BID, Routine, Start 01/08/22 9:00:00 EST, 01/08/22 6:17:00 EST glucagon, 1 mg, IntraMuscular, Inj, Q15Min, PRN for Other (See Comment), Routine, Start 01/08/22 6:20:00 EST, 01/08/22 6:20:00 EST glucose, 15 Gram 37.5 mL, Oral, Gel, Q15Min, PRN for Other (See Comment), Routine, Start 01/08/22 6:20:00 EST, 01/08/22 6:20:00 EST glucose, 25 Gram, IV Push, Inj, Q15Min, PRN for Other (See Comment), Routine, Start 01/08/22 6:20:00 EST, 01/08/22 6:20:00 EST glucose, 16 Gram, 4 Tab, Chew, Tab, Q15Min, PRN for Other (See Comment), Routine, Start 01/08/22 6:20:00 EST glucose, 25 Gram, IV Push, Inj, Q15Min, PRN for Other (See Comment), Routine, Start 01/08/22 6:20:00 EST, 01/08/22 6:20:00 EST glucose, 25 Gram, IV Push, Inj, Q15Min, PRN for Other (See Comment), Routine, Start 01/08/22 6:20:00 EST, 01/08/22 6:20:00 EST glucose, 12.5 Gram, IV Push, Inj, Q15Min, PRN for Other (See Comment), Routine, Start 01/08/22 6:20:00 EST, 01/08/22 6:20:00 EST heparin, 5,000 Units, SubCutaneous, Inj, Q12H, Routine, Start 01/08/22 9:00:00 EST, 01/08/22 6:20:00 EST insulin lispro, Scale A:, SubCutaneous, Inj, AC and at Bedtime, Routine, Start 01/08/22 7:00:00 EST, At HS give only if FSBG > 180 mg/dL isosorbide dinitrate, 30 mg, Oral, Tab, Daily, Routine, Start 01/08/22 9:00:00 EST, 01/08/22 6:17:00 EST levothyroxine, 25 mcg, Oral, Tab, Daily, Routine, Start 01/08/22 6:30:00 EST, 01/08/22 6:17:00 EST loratadine, 10 mg, Oral, Tab, Daily, PRN for Allergies, Routine, Start 01/08/22 6:17:00 EST, 01/08/22 6:17:00 EST magnesium hydroxide, 30 mL, Oral, Liquid, Daily, PRN for Constipation, Routine, Start 01/08/22 6:20:00 EST nebivolol, 10 mg, Oral, Tab, Daily, Routine, Start 01/08/22 9:00:00 EST, 01/08/22 6:17:00 EST ondansetron, 4 mg, IV Push, Inj, Q4H, PRN for Nausea, Routine, Start 01/08/22 6:20:00 EST, 01/08/22 6:20:00 EST Sodium Chloride 0.9% intravenous solution 1,000 mL, 1,000 mL, Bag Volume (mL) = 1,000, IntraVENous, Rate = 100 mL/Hr, start date 01/08/22 5:42:00 EST, Routine, 1.97, m2 Admit to Inpatient CBC w/ Auto Diff CMP Comprehensive Metabolic Panel Communication to Nursing Communication to Nursing Communication to Nursing Communication to Nursing Communication to Nursing Consult to Case Management Consult to Physician Diet, Adult Facility Protocol Intake and Output Lab Order Instructions to Nursing Medication Administration Instructions Notify Provider Notify Provider Notify Provider Notify Provider Vital Signs OT Evaluation and Treatment Patient Position Peripheral IV Insertion Phosphorus Level POC Glucose POC Glucose PT Evaluation and Treatment Resuscitation Status Saline Lock Insert Seizure Precautions Seizure Precautions Sequential Compression Device TSH Thyroid Stimulating Hormone Up Ad Tressa US Renal Comp Vital Signs VTE Prophylaxis - Medical Heparin 5,000 Units, SubCutaneous, Inj, Q12H, Routine, Start 01/08/22 9:00:00 EST, 01/08/22 6:20:00 EST (LIA SANTOYO MD-INT) Sequential Compression Device Start: 01/08/22 5:50:00 EST, Bilateral, Continuous Order (ILA SANTOYO MD-INT) Problem List/Past Medical History Ongoing Acquired hypothyroidism Anemia (hx of) Angina (hx [...] cholesterol HTN (hypertension) Murmur Peripheral vascular disease Prediabetes Prostatitis///12/2018 Renal calculus///HX Stented coronary artery Historical Cataract///extraction Gallbladder disease s/p cholecystectomy Left hip pain//left leg (hx of) Procedure/Surgical History EXCISION OF LUMBOSACRAL DISC, OPEN APPROACH (12/29/2018), FUSION LUMSAC JT W INTBD FUS DEV, POST APPR A COL, OPEN (12/29/2018), heart cath (2017), back fusion lumbar 5 S1 2-2018, cardiac stents, Cataract surgery, colon resection, Colonoscopy, hand surgery, left lower extremity vascular stent x2, neck surgery, renal stent//2017, right leg balloon, S/P cholecystectomy.. Home Medications (21) Active Aspir 81 81 [...] Instructions ZyrTEC 10 mg, PRN, Oral, Daily Allergies No Known Medication Allergies Social History Alcohol Alcohol Use History No. Alcohol Use Frequency Socially. Alcohol Use History Yes. Alcohol Use Frequency Rarely. Home/Environment Lives with Spouse. Living situation: Home/Independent. Substance Abuse Drug Use Hx: No. Use in Last 12 Months: No. Tobacco 10 or more cigarettes (1/2 pack or more)/day in last 30 days Smoking Status. Never Smokeless Tobacco Status. Years of Use: 55. Last Used: TODAY. 10 or more cigarettes (1/2 pack or more)/day in last 30 days Smoking Status. Smoking Status Current every day smoker. Years of Use: 55. Packs/Tins Daily: 1. Family History positive CAD HTN DM Diagnostic Results ct of abd ordered us of kidney ordered Lab Results Test Name Test Result Date/Time Sodium Level 129 mmol/L (Low) 01/07/2022 23:05 EST Potassium Level 3.5 mmol/L 01/07/2022 23:05 EST Chloride Level 97 mmol/L (Low) 01/07/2022 23:05 EST Carbon Dioxide Level 18 mmol/L (Low) 01/07/2022 23:05 EST Anion Gap 18 01/07/2022 23:05 EST Glucose Level 181 mg/dL (High) 01/07/2022 23:05 EST Blood Urea Nitrogen 127 mg/dL (Critical) 01/07/2022 23:05 EST Creatinine Level 3.70 mg/dL (High) 01/07/2022 23:05 EST eGFR 19 mL/min/1.73m2 (Low) 01/07/2022 23:05 EST eGFR NonAfrican 16 mL/min/1.73m2 (Low) 01/07/2022 23:05 EST Bun/Creatinine 34.3 (High) 01/07/2022 23:05 EST Calcium Level 7.6 mg/dL (Low) 01/07/2022 23:05 EST Magnesium Level 1.8 mg/dL 01/07/2022 23:05 EST Phosphorus 8.3 mg/dL (High) 01/07/2022 23:05 EST WBC 14.1 K/uL (High) 01/07/2022 23:05 EST RBC 5.54 Million/uL 01/07/2022 23:05 EST Hgb 17.1 g/dL 01/07/2022 23:05 EST Hct 48.2 % 01/07/2022 23:05 EST MCV 87.0 fL 01/07/2022 23:05 EST MCH 30.9 pg 01/07/2022 23:05 EST MCHC 35.5 Gram/dL 01/07/2022 23:05 EST Platelet Count 306 K/uL 01/07/2022 23:05 EST MPV 10.4 fL 01/07/2022 23:05 EST RDW 12.7 % 01/07/2022 23:05 EST Neutrophil Percent Man 62 % 01/07/2022 23:05 EST Band Percent Man 1 % (Low) 01/07/2022 23:05 EST ANC # 9 K/uL 01/07/2022 23:05 EST Lymph Percent Man 11 % (Low) 01/07/2022 23:05 EST ALYC # 2 K/uL 01/07/2022 23:05 EST Granite Percent Man 26 % (High) 01/07/2022 23:05 EST RBC Morphology Normal 01/07/2022 23:[address] Estimate Adequate 01/07/2022 23:05 EST Slide Review Add Diff 01/07/2022 23:05 EST Urine Type. U CleanCatch 01/08/2022 01:35 EST Urine Color YELLOW2 01/08/2022 01:35 EST Urine Appearance CLOUDY2 (Abnormal) 01/08/2022 01:35 EST Urine Specific [place] 1.017 01/08/2022 01:35 EST Urine pH Dipstick *5.0 01/08/2022 01:35 EST Urine Leukocyte Esterase NEGATIVE2 01/08/2022 01:35 EST Urine Nitrite NEGATIVE2 01/08/2022 01:35 EST Urine Protein Dipstick 30 (Abnormal) 01/08/2022 01:35 EST Urine Glucose Dipstick NEGATIVE2 01/08/2022 01:35 EST Urine Ketones Dipstick NEGATIVE2 01/08/2022 01:35 EST Urine Urobilinogen Dipstick 0.2 01/08/2022 01:35 EST Urine Bilirubin Dipstick NEGATIVE2 01/08/2022 01:35 EST Urine Blood Dipstick LARGE2 (Abnormal) 01/08/2022 01:35 EST Ur RBC 10-20 (Abnormal) 01/08/2022 01:35 EST Ur WBC None Seen 01/08/2022 01:35 EST Ur Mucous 1+ (Abnormal) 01/08/2022 01:35 EST Ur Epithelial Cells 0-2 (Abnormal) 01/08/2022 01:35 EST Ur Hyaline Casts 5-10 (Abnormal) 01/08/2022 01:35 EST Urine Culture if Indicated Not Indicated 01/08/2022 01:35 EST Electronically signed by [facility], [facility] Conversion Paper Bag Machine Operator Cerner at 02/16/2023 3:50 PM CDT documented in this encounter Plan of Treatment Upcoming Encounters Date Type Department Care Team (Late st Contact Info) Description 03/10/2025 1:15 PM EDT Office Visit [facility] Cardiology - [address] [phone] Tabby Mcallister PA-C [address] [address] documented as of this encounter Visit Diagnoses Not on filedocumented in this encounter Care Teams Head Porter Relationship Specialty Start Date End Date Stacy Moise PA PCP - General 03/02/23 documented as of this encounter
--- OUTSIDE RECORDS SUMMARY | 2024-09-30 17:09 | XMS_ITS | Encounter Summary ---
Author Organization [employer] Address [address] [place] [address] Care Team Providers Care Community Living Coach Name Role Phone Stacy Moise Primary Care Provider [phone] Encounter Details Date Type Department Care Team (Late st Contact Info) Description 01/07/2022 Transcribed Document [facility] Family Medicine [facility] [place] [address] ProviderMireya MD [address] [place] [id number] Social History Tobacco Use Types Packs/Day Years Used Date Smoking Tobacco: Never Assessed Sex and Gender Information Value Date Recorded Sex Assigned at Not on file Legal Sex Male 5:25 PM CDT Gender Identity Not on file Sexual Orientation Not on file documented as of this encounter Miscellaneous Notes * Cerner Conversion Note - Mireya ProviderMD - 01/07/2022 10:45 PM REPAIRER SWITCHGEAR ED Assessment Entered On: 01/07/2022 23:22 EST Performed On: 01/07/2022 23:21 EST by Afua Carter RN ED Quick Look Assessment Level of Consciousness : Alert, Awake Affect/Behavior : Appropriate, Calm Orientation : Oriented x 4 Skin Temperature : Warm Skin Description : Normal for ethnicity Afua Carter RN - 01/07/2022 23:21 EST ED General-Functional Assess Information Obtained From : Patient Preferred Communication Mode : Verbal Communication Barrier : None Primary Language : Austrian Any Spiritual/Cultural Needs or Requests : No Currently in Unsafe Situation : No Afua Carter RN - 01/07/2022 23:21 EST Social Habits Smoking Status : 10 or more cigarettes (1/2 pack or more)/day in last 30 days Smokeless Tobacco Status : Never Desires Tobacco Cessation Medication : No Reason for No Tobacco Cessation Medication : ED/procedural patient only Desires Tobacco Cessation Calc : 1 Afua Carter RN - 01/07/2022 23:21 EST Social History (As Of: 01/07/2022 23:22:05 EST) Tobacco: Smoking Status Current every day [...] 07/21/2014 22:40:52 EDT by SON DUMONT PA-C) Gastrointestinal ED Gastrointestinal Assessment WDL : WDL with exceptions (Comment: pt c/o nausea and vomting since yesterday. pt states he had appt with pcp today and was told to come to ER for elevated BUN and creatine. [Afua Carter RN - 01/07/2022 23:21 EST] ) Gastrointestinal Symptoms : Abdominal pain, Nausea, Vomiting Afua Carter RN - 01/07/2022 23:21 EST documented in this encounter Plan of Treatment Upcoming Encounters Date Type Department Care Team (Late st Contact Info) Description 03/10/2025 1:15 PM EDT Office Visit [facility] Cardiology - [place] [address] [place] [address] Tabby Mcallister PA-C [address] [facility] [address] [place] [address] documented as of this encounter Visit Diagnoses Not on filedocumented in this encounter Care Teams Community Living Coach Relationship Specialty Start Date End Date Stacy Moise PA PCP - General 03/02/23 documented as of this encounter
--- OUTSIDE RECORDS SUMMARY | 2024-09-30 17:09 | XMS_ITS | Encounter Summary ---
Author Organization [employer] Address [address] [place] [address] Care Team Providers Care Folded Towel Machine Operator Name Role Phone Stacy Moise Primary Care Provider [phone] Encounter Details Date Type Department Care Team (Late st Contact Info) Description 01/08/2022 Transcribed Document [facility] Family Medicine [facility] [place] [address] ProviderMireya MD [address] [place] [phone] Social History Tobacco Use Types Packs/Day Years Used Date Smoking Tobacco: Never Assessed Sex and Gender Information Value Date Recorded Sex Assigned at Not on file Legal Sex Male 5:25 PM CDT Gender Identity Not on file Sexual Orientation Not on file documented as of this encounter Miscellaneous Notes * Cerner Conversion Note - Mireya ProviderMD - 01/08/2022 9:12 AM KNOT B[employer]ER [facility] Authorization Entered On: 01/08/2022 9:13 EST Performed On: 01/08/2022 9:12 EST by KOBE CONTRERAS RN-Management CoordinatorReceiving Teller Insurance Authorization Authorization and Policy Numbers : Insurance 1 Health Plan: MEDICARE Policy Number: [id number] Authorization Number: Insurance 2 Health Plan: [employer] Policy Number: [id number] Authorization Number: Insurance Primary Name : Health Plan: MEDICARE Policy Number: [id number] Authorized Service Begin Date-Primary : 01/08/2022 EST Historical Authorization Comments-Primary : No Authorization Comments Found KOBE CONTRERAS RN-Management Coordinator - 01/08/2022 9:12 EST Secondary Insurance Authorization Authorization and Policy Numbers : Insurance 1 Health Plan: MEDICARE Policy Number: [id number] Authorization Number: Insurance 2 Health Plan: [employer] Policy Number: [id number] Authorization Number: Insurance Secondary Name : Health Plan: [employer] Policy Number: [id number] Historical Authorization Comments-Secondary : No Authorization Comments Found KOBE COTNRERAS, RN-Management Coordinator - 01/08/2022 9:12 EST Electronically signed by [facility], [facility] Conversion Weathercaster Cerner at 02/16/2023 3:59 PM CDT documented in this encounter Plan of Treatment Upcoming Encounters Date Type Department Care Team (Late st Contact Info) Description 03/10/2025 1:15 PM EDT Office Visit [facility] Cardiology - [place] [address] [place] [address] Tabby Mcallister PA-C [address] [phone] documented as of this encounter Visit Diagnoses Not on filedocumented in this encounter Care Teams Folded Towel Machine Operator Relationship Specialty Start Date End Date Stacy Moise PA PCP - General 03/02/23 documented as of this encounter
--- OUTSIDE RECORDS SUMMARY | 2024-09-30 17:09 | XMS_ITS | Encounter Summary ---
Author Organization [employer] Address [address] [place] [address] Care Team Providers Care Geospatial Specialist Name Role Phone Stacy Moise Primary Care Provider [phone] Encounter Details Date Type Department Care Team (Late st Contact Info) Description 01/08/2022 Transcribed Document [facility] [place] Family Medicine Formerly [facility], [facility]–[place] [address] ProviderMireya MD [address] [place] [address] [id number] Social History Tobacco Use Types Packs/Day Years Used Date Smoking Tobacco: Never Assessed Sex and Gender Information Value Date Recorded Sex Assigned at Not on file Legal Sex Male 5:25 PM CDT Gender Identity Not on file Sexual Orientation Not on file documented as of this encounter Miscellaneous Notes * Cerner Conversion Note - Mireya Osuna MD - 01/08/2022 12:12 AM RETAIL MARKETING EXECUTIVE Patient: SCOTTIE CURRAN Age: 76 years Sex: Male : 1945 Associated Diagnoses: ARF (acute renal failure); Dehydration Author: SEDA LOYA MD Basic Information History source: Patient. Arrival mode: Private vehicle. History limitation: None. Additional information: Chief Complaint from Nursing Triage Note : Chief Complaint 01/07/2022 22:58 EST Chief Complaint Pt from home after having a stomach bug since thursday. went to PCP today and had labs and was told to come here for BUN of [address] May sent them. . History of Present Illness This is a 76-year-old male with a past medical history significant for hypertension, hyperlipidemia, coronary artery disease, diabetes, hypothyroidism, [...] has resolved. Decreased urination, but no dysuria. Review of Systems Additional review of systems information: 10 point review of systems reviewed and negative except as stated in history of present illness . Health Status Allergies: Allergic Reactions (Selected) No Known Medication Allergies. Medications: (Selected) Documented Medications Documented Aspir 81: 81 mg, [...] extended release: Tab, Oral, BID, 0 Refill(s), per nurse's notes. Immunizations: Per nurse's notes. Past Medical/ Family/ Social History Medical history Reviewed as documented in chart. Surgical history: Reviewed as documented in chart. Family history: Reviewed as documented in chart. Social history: Reviewed as documented in chart. Problem list: Active Problems (26) Acquired hypothyroidism [...] disease Prostatitis///12/2018 Renal calculus///HX Stented coronary artery , per nurse's notes. Physical Examination Vital Signs Vital Signs/Vital Measures 01/07/2022 22:58 EST Blood Pressure Location Arm, right upper Blood Pressure Source Non-Invasive BP Device Systolic Blood Pressure 102 mmHg Diastolic Blood Pressure 70 mmHg Temperature Source Temporal artery scanning Temperature Mode Fahrenheit Temperature, Fahrenheit 97.9 Deg F Clinical Temperature, C 36.6 Deg C Peripheral Pulse Rate 83 bpm Respiratory Rate 14 Breaths/Min Oxygen Saturation 97 % Oxygen Therapy Mode Room air . Per nurse's notes. General: Alert, no acute distress. Skin: Warm, dry. Head: Normocephalic. Neck: Supple. Ears, nose, mouth and throat: Dry oral mucosa. Cardiovascular: Regular rate and rhythm, No murmur. Respiratory: Lungs are clear to auscultation, respirations are non-labored, breath sounds are equal. Gastrointestinal: Soft, Non distended, Minimal lower abdominal tenderness, no guarding or rebound. Neurological: Alert and oriented to person, place, time, and situation, normal speech observed, normal coordination observed. Psychiatric: Cooperative. Medical Decision Making Documents reviewed: Emergency department nurses' notes, prior records. Results review: Lab results : Lab Results 01/07/2022 23:05 EST Sodium Level 129 mmol/L LOW Potassium Level 3.5 mmol/L Chloride Level 97 mmol/L LOW Carbon Dioxide Level 18 mmol/L LOW Anion Gap 18 Glucose Level 181 mg/dL HI Blood Urea Nitrogen 127 mg/dL CRIT CREATININE 3.70 mg/dL HI eGFR 19 mL/min/1.73m2 LOW eGFR NonAfrican 16 mL/min/1.73m2 LOW Bun/Creatinine 34.3 HI Calcium Level 7.6 mg/dL LOW Magnesium Level 1.8 mg/dL Phosphorus 8.3 mg/dL HI WBC 14.1 K/uL HI RBC 5.54 Million/uL Hgb 17.1 g/dL Hct 48.2 % MCV 87.0 fL MCH 30.9 pg MCHC 35.5 Gram/dL Platelet Count 306 K/uL MPV 10.4 fL RDW 12.7 % Neut 62 % Band 1 % LOW ANC # 9 K/uL NA Lymph 11 % LOW ALYC # 2 K/uL NA Boyd 26 % HI RBC Morphology Normal Platelet Ct Estimate Adequate Slide Review Add Diff Man . Notes: Labs and exam here suggest significant dehydration. Creatinine is elevated with an elevated BUN. Given 2 L of fluid here. Discussed with Dr. Santoyo who will admit for further management. Urinalysis pending at the time of this note. Patient's vomiting and diarrhea has improved, but will need to be admitted for management of renal failure and hydration.. Impression and Plan Diagnosis ARF (acute renal failure) - Discharge, Medical Dehydration - Discharge, Medical Plan Condition: Stable. Disposition: Admit Admit/Transfer/Discharge: Admit to Inpatient (Order): Start: 01/08/2022 0:21 EST, Admit reason: ARF, dehydration, Estimated length of stay 2 Midnights or LONGER, Level of Care: Med-Surg with telemetry, Admitting: LIA SANTOYO MD-INT. Counseled: Patient, Family, Regarding diagnosis, Regarding diagnostic results, Regarding treatment plan, Patient indicated understanding of instructions. Electronically signed by Juarez [facility] Conversion Paint Line Supervisor Cerner at 02/16/2023 4:05 PM CDT documented in this encounter Plan of Treatment Upcoming Encounters Date Type Department Care Team (Late st Contact Info) Description 03/10/2025 1:15 PM EDT Office Visit [facility] Cardiology - [place] [address] [place] [address] Tabby Mcallister PA-C [address] [facility] [address] [place] [address] documented as of this encounter Visit Diagnoses Not on filedocumented in this encounter Care Teams Geospatial Specialist Relationship Specialty Start Date End Date Stacy Moise PA PCP - General 03/02/23 documented as of this encounter
--- OUTSIDE RECORDS SUMMARY | 2024-09-30 17:09 | XMS_ITS | Encounter Summary ---
Author Organization [employer] Address [address] [place] [address] Care Team Providers Care Optical Advisor Name Role Phone Stacy Moise Primary Care Provider [phone] Encounter Details Date Type Department Care Team (Late st Contact Info) Description 01/07/2022 Transcribed Document [facility] [place] [facility] [place] [address] ProviderMireya MD [address] [place] [id number] Social History Tobacco Use Types Packs/Day Years Used Date Smoking Tobacco: Never Assessed Sex and Gender Information Value Date Recorded Sex Assigned at Not on file Legal Sex Male 5:25 PM CDT Gender Identity Not on file Sexual Orientation Not on file documented as of this encounter Miscellaneous Notes * Cerner Conversion Note - Mireya ProviderMD - 01/07/2022 10:45 PM SOFTWARE ASSET MANAGEMENT ANALYST [place] Suicide Severity Rating Scale (C-SSRS) Entered On: 01/07/2022 23:22 EST Performed On: 01/07/2022 23:21 EST by Afua Carter RN [place] Suicide Severity Rating Scale (C-SSRS) CSSRS Past Month Wish to be : No CSSRS Past Month Suicidal Thoughts : No CSSRS Lifetime Suicide Behavior : No Suicide Severity Rating Score : 0 Suicide Severity Rating : No Additional Care Required at this time Afua Carter RN - 01/07/2022 23:21 EST Electronically signed by Juarez [facility] Conversion Senior Network Engineer Cerner at 02/16/2023 3:49 PM CDT documented in this encounter Plan of Treatment Upcoming Encounters Date Type Department Care Team (Late st Contact Info) Description 03/10/2025 1:15 PM EDT Office Visit [facility] Cardiology - [place] [address] [place] [address] Tabby Mcallister PA-Yuliana [address] [facility] [address] [place] [address] documented as of this encounter Visit Diagnoses Not on filedocumented in this encounter Care Teams Optical Advisor Relationship Specialty Start Date End Date Stacy Moise PA PCP - General 03/02/23 documented as of this encounter
--- OUTSIDE RECORDS SUMMARY | 2024-09-30 17:09 | XMS_ITS | Encounter Summary ---
Author Organization [employer] Address [address] [place] [address] Care Team Providers Care Set Up Mechanic Name Role Phone Sudhir Payton Primary Care Provider [phone] Encounter Details Date Type Department Care Team (Late st Contact Info) Description 01/08/2022 Transcribed Document [facility] [place] [facility] [place] [address] ProviderMireya MD [address] [place] [address] [phone] Social History Tobacco Use Types Packs/Day Years Used Date Smoking Tobacco: Never Assessed Sex and Gender Information Value Date Recorded Sex Assigned at Not on file Legal Sex Male 5:25 PM CDT Gender Identity Not on file Sexual Orientation Not on file documented as of this encounter Miscellaneous Notes * Cerner Conversion Note - Mireya Osuna MD - 01/08/2022 4:12 PM INTELLIGENCE ANALYST Patient: SCOTTIE CURRAN Age: 76 Years Sex: Male : 1945 Chief Complaint Pt from home after having a stomach bug since thursday. went to PCP today and had labs and was told to come here for BUN of [address] May sent them. Reason for Consultation Acute renal failure. History of Present Illness 76 year old man smoker with past medical history of diabetes, hypertension, dyslipidemia, hypothyroidism, CAD s/p stents, Peripheral vascular disease, Hx of nephrolithiasis (follows Dr. Piña) came to the hospital after he was called by PCP for abnormal renal function. Nephrology is consulted for the same reason. On evaluation at bedside; patient reported that he was in usual state of health till Thursday; around evening time he started vomiting; had 3-4 episodes of profuse vomiting followed by water diarrhea with some abdominal discomfort; that lasted till Thursday; At this time he was not eating or drinking well.. He saw Dr. May on Thursday; ordered labs and yesterday night he got call from him saying his BUN 111 and Cr 3.6. Recommended to go to hospital. Currently pt is feeling much better; no more NV or diarrhea. He denies any urinary complains, no dysuria, urgency, frequency or nocturia. He denies chest pain or shortness of breath. He denies fever or chills, denies headache, cough or palpitations. He denies NSAID use. He denies seeing staging technician in the past. He reports that he had renal artery stenosis and had stent placed in right renal artery in 2018. Review of Systems Negative except what documented in HPI. Vital Signs T: 36.3 ??C TMIN: 36.3 ??C TMAX: 36.8 ??C HR: 70(Monitored) RR: 16 BP: 128/76 SpO2: 98% HT: 175.26 cm WT: 79.55 kg BMI: 25.9 Oxygen Settings (Last) Oxygen Therapy Mode: Room air (01/08/22 05:05:00) Physical Exam General: Appears well, alert Neck: [...] 3.7 > improved to 2.4 after hydration. - Hyponatremia and hypokalemia - correcting appropriately with hydration. - UA + for blood; will send Urine lytes and UPCR - Will send serologies; will order renal artery doppler. - Cont with IVF for now. - Strict I/O - Avoid nephrotoxins - Agree with holding ACEI for now. Thank you for the consult. Will follow closely. VTE Prophylaxis - Medical Clopidogrel 75 mg, Oral, Tab, Daily, Routine, Start 01/08/22 9:00:00 EST, 01/08/22 6:17:00 EST (LIA SANTOYO MD-INT) Heparin 5,000 Units, SubCutaneous, Inj, Q12H, Routine, Start 01/08/22 9:00:00 EST, 01/08/22 6:20:00 EST (LIA SANTOYO MD-INT) Sequential Compression Device Start: 01/08/22 5:50:00 EST, Bilateral, Continuous Order (LIA SANTOYO MD-INT) Provider Information Primary Care Physician - SUDHIR PAYTON PA-FAM Attending Physician - LIA SANTOYO MD-INT Admitting Physician - LIA SANTOYO MD-INT Consulting Physician - LIA SANTOYO MD-INT Consulting Physician - ROCK GORDILLO MD Referring Physician - SEDA LOYA MD Problem List/Past Medical History Ongoing Acquired hypothyroidism [...] cath (2017), back fusion lumbar 5 S1 2-2019, cardiac stents, Cataract surgery, colon resection, Colonoscopy, hand surgery, left lower extremity vascular stent x2, neck surgery, renal stent///2018, right leg balloon, S/P cholecystectomy.. Medications Inpatient atorvastatin, 40 mg= 1 Tab, Oral, Daily [...] Protonix, 40 mg= 1 Tab, Oral, Daily Sodium Chloride 0.9% with KCl 20 mEq/L 1,000 mL, 1000 mL, IntraVENous Zofran, 4 mg= 2 mL, IV Push, Q4H, PRN Home aspirin 81 mg oral delayed release tablet, 81 mg= 1 Tab, Oral, Daily atorvastatin 40 mg oral tablet, 40 mg= 1 Tab, Oral, At Bedtime Bystolic 10 mg oral tablet, 10 mg= 1 Tab, Oral, Daily clonidine 0.1 mg oral tablet, 0.1 mg= 1 Tab, Oral, TID, PRN cyanocobalamin 1000 mcg/mL injectable solution, 1000 mcg= 1 mL, IntraMuscular, qMonth finasteride 5 mg oral tablet, 5 mg= 1 Tab, Oral, Daily furosemide 20 mg oral tablet, 20 mg= 1 Tab, Oral, Daily, Home Med: On Hold per MD advice gabapentin 100 mg oral capsule, 200 mg= 2 Cap, Oral, QID gabapentin 100 mg oral capsule, 400 mg= 4 Cap, Oral, At Bedtime isosorbide mononitrate 60 mg oral tablet, extended release, 60 mg= 1 Tab, Oral, QAM Januvia 100 mg oral tablet, 100 mg= 1 Tab, Oral, Daily levothyroxine 25 mcg (0.025 mg) oral tablet, 25 mcg= 1 Tab, Oral, Daily Lopid 600 mg oral tablet, 600 mg= 1 Tab, Oral, BID losartan 100 mg oral tablet, 100 mg= 1 Tab, Oral, Daily NexIUM 24HR 20 mg oral delayed release capsule, 20 mg= 1 Cap, Oral, Daily Norvasc 10 mg oral tablet, 10 mg= 1 Tab, Oral, Daily Plavix 75 mg oral tablet, 75 mg= 1 Tab, Oral, Daily potassium chloride 20 mEq oral tablet, extended release, 20 mEq= 1 Tab, Oral, Daily ZyrTEC 10 mg oral tablet, 10 mg= 1 Tab, Oral, Daily Allergies No Known Medication Allergies [...] Years of Use: 55. Packs/Tins Daily: 1. Lab Results Test Name Test Result Date/Time Sodium Level 135 mmol/L (Low) 01/08/2022 06:01 EST Sodium Level 129 mmol/L (Low) 01/07/2022 23:05 EST Potassium Level 3.3 mmol/L (Low) 01/08/2022 06:01 EST Potassium Level 3.5 mmol/L 01/07/2022 23:05 EST Chloride Level 104 mmol/L 01/08/2022 06:01 EST Chloride Level 97 mmol/L (Low) 01/07/2022 23:05 EST Carbon Dioxide Level 21 mmol/L 01/08/2022 06:01 EST Carbon Dioxide Level 18 mmol/L (Low) 01/07/2022 23:05 EST Anion Gap 13 01/08/2022 06:01 EST Anion Gap 18 01/07/2022 23:05 EST Glucose Level 119 mg/dL (High) 01/08/2022 06:01 EST Glucose Level 181 mg/dL (High) 01/07/2022 23:05 EST Blood Urea Nitrogen 110 mg/dL (Critical) 01/08/2022 06:01 EST Blood Urea Nitrogen 127 mg/dL (Critical) 01/07/2022 23:05 EST Creatinine Level 2.40 mg/dL (High) 01/08/2022 06:01 EST Creatinine Level 3.70 mg/dL (High) 01/07/2022 23:05 EST eGFR 32 mL/min/1.73m2 (Low) 01/08/2022 06:01 EST eGFR 19 mL/min/1.73m2 (Low) 01/07/2022 23:05 EST eGFR NonAfrican 26 mL/min/1.73m2 (Low) 01/08/2022 06:01 EST eGFR NonAfrican 16 mL/min/1.73m2 (Low) 01/07/2022 23:05 EST Bun/Creatinine 45.8 (High) 01/08/2022 06:01 EST Bun/Creatinine 34.3 (High) 01/07/2022 23:05 EST Calcium Level 7.2 mg/dL (Low) 01/08/2022 06:01 EST Calcium Level 7.6 mg/dL (Low) 01/07/2022 23:05 EST Protein Total 6.6 Gram/dL 01/08/2022 06:01 EST Albumin Level 3.0 Gram/dL (Low) 01/08/2022 06:01 EST Globulin 3.6 Gram/dL 01/08/2022 06:01 EST A/G Ratio 0.8 (Low) 01/08/2022 06:01 EST Bilirubin Total 0.6 mg/dL 01/08/2022 06:01 EST Alk Phos 55 Units/Liter 01/08/2022 06:01 EST AST 27 Units/Liter 01/08/2022 06:01 EST ALT 49 Units/Liter 01/08/2022 06:01 EST Magnesium Level 1.8 mg/dL 01/07/2022 23:05 EST Phosphorus 4.9 mg/dL 01/08/2022 06:01 EST Phosphorus 8.3 mg/dL (High) 01/07/2022 23:05 EST Device Comment 1 Notified MD RBV 01/08/2022 10:40 EST Device Comment 1 Notified Nurse RBV 01/08/2022 05:53 EST Glucose POC2 160 mg/dL (High) 01/08/2022 10:40 EST Glucose POC2 129 mg/dL (High) 01/08/2022 05:53 EST Lactic Acid Level 1.2 mmol/L 01/08/2022 06:14 EST WBC 10.6 K/uL (High) 01/08/2022 06:50 EST WBC 14.1 K/uL (High) 01/07/2022 23:05 EST RBC 4.72 Million/uL 01/08/2022 06:50 EST RBC 5.54 Million/uL 01/07/2022 23:05 EST Hgb 14.5 g/dL 01/08/2022 06:50 EST Hgb 17.1 g/dL 01/07/2022 23:05 EST Hct 41.3 % 01/08/2022 06:50 EST Hct 48.2 % 01/07/2022 23:05 EST MCV 87.5 fL 01/08/2022 06:50 EST MCV 87.0 fL 01/07/2022 23:05 EST MCH 30.7 pg 01/08/2022 06:50 EST MCH 30.9 pg 01/07/2022 23:05 EST MCHC 35.1 Gram/dL 01/08/2022 06:50 EST MCHC 35.5 Gram/dL 01/07/2022 23:05 EST Platelet Count 243 K/uL 01/08/2022 06:50 EST Platelet Count 306 K/uL 01/07/2022 23:05 EST MPV 10.0 fL 01/08/2022 06:50 EST MPV 10.4 fL 01/07/2022 23:05 EST RDW 12.5 % 01/08/2022 06:50 EST RDW 12.7 % 01/07/2022 23:05 EST Neutrophil Percent Man 65 % 01/08/2022 06:50 EST Neutrophil Percent Man 62 % 01/07/2022 23:05 EST Band Percent Man 1 % (Low) 01/08/2022 06:50 EST Band Percent Man 1 % (Low) 01/07/2022 23:05 EST ANC # 9 K/uL 01/07/2022 23:05 EST Lymph Percent Man 14 % (Low) 01/08/2022 06:50 EST Lymph Percent Man 11 % (Low) 01/07/2022 23:05 EST ALYC # 2 K/uL 01/07/2022 23:05 EST Dickson Percent Man 19 % (High) 01/08/2022 06:50 EST Dickson Percent Man 26 % (High) 01/07/2022 23:05 EST Eos Percent Man 1 % 01/08/2022 06:50 EST Baso Percent Man 0 % 01/08/2022 06:50 EST RBC Morphology Normal 01/08/2022 06:50 EST RBC Morphology Normal 01/07/2022 23:[address] Estimate Adequate 01/08/2022 06:[address] Estimate Adequate 01/07/2022 23:05 EST Slide Review Add Diff 01/07/2022 23:05 EST Urine Type. U CleanCatch 01/08/2022 06:28 EST Urine Type. U CleanCatch 01/08/2022 01:35 EST Urine Color YELLOW2 01/08/2022 06:28 EST Urine Color YELLOW2 01/08/2022 01:35 EST Urine Appearance CLEAR2 01/08/2022 06:28 EST Urine Appearance CLOUDY2 (Abnormal) 01/08/2022 01:35 EST Urine Specific Hooker 1.017 01/08/2022 06:28 EST Urine Specific Hooker 1.017 01/08/2022 01:35 EST Urine pH Dipstick 5.5 (Low) 01/08/2022 06:28 EST Urine pH Dipstick *5.0 01/08/2022 01:35 EST Urine Leukocyte Esterase NEGATIVE2 01/08/2022 06:28 EST Urine Leukocyte Esterase NEGATIVE2 01/08/2022 01:35 EST Urine Nitrite NEGATIVE2 01/08/2022 06:28 EST Urine Nitrite NEGATIVE2 01/08/2022 01:35 EST Urine Protein Dipstick TRACE2 (Abnormal) 01/08/2022 06:28 EST Urine Protein Dipstick 30 (Abnormal) 01/08/2022 01:35 EST Urine Glucose Dipstick NEGATIVE2 01/08/2022 06:28 EST Urine Glucose Dipstick NEGATIVE2 01/08/2022 01:35 EST Urine Ketones Dipstick NEGATIVE2 01/08/2022 06:28 EST Urine Ketones Dipstick NEGATIVE2 01/08/2022 01:35 EST Urine Urobilinogen Dipstick 0.2 01/08/2022 06:28 EST Urine Urobilinogen Dipstick 0.2 01/08/2022 01:35 EST Urine Bilirubin Dipstick NEGATIVE2 01/08/2022 06:28 EST Urine Bilirubin Dipstick NEGATIVE2 01/08/2022 01:35 EST Urine Blood Dipstick MODERATE2 (Abnormal) 01/08/2022 06:28 EST Urine Blood Dipstick LARGE2 (Abnormal) 01/08/2022 01:35 EST Ur RBC 2-5 (Abnormal) 01/08/2022 06:28 EST Ur RBC 10-20 (Abnormal) 01/08/2022 01:35 EST Ur WBC None Seen 01/08/2022 06:28 EST Ur WBC None Seen 01/08/2022 01:35 EST Ur Mucous 1+ (Abnormal) 01/08/2022 01:35 EST Ur Epithelial Cells 0-2 (Abnormal) 01/08/2022 01:35 EST Ur Hyaline Casts 0-2 (Abnormal) 01/08/2022 06:28 EST Ur Hyaline Casts 5-10 (Abnormal) 01/08/2022 01:35 EST Urine Culture if Indicated Not Indicated 01/08/2022 06:28 EST Urine Culture if Indicated Not Indicated 01/08/2022 01:35 EST TSH 1.980 mcInt Units/mL 01/08/2022 06:01 EST SARS-CoV-2 (COVID19 PCR) Negative2 01/08/2022 06:26 EST documented in this encounter Plan of Treatment Upcoming Encounters Date Type Department Care Team (Late st Contact Info) Description 03/10/2025 1:15 PM EDT Office Visit [facility] Cardiology - [address] [address] Tabby Mcallister PA-C [address] [address] documented as of this encounter Visit Diagnoses Not on filedocumented in this encounter Care Teams Set Up Mechanic Relationship Specialty Start Date End Date Sudhir Payton PA PCP - General 03/02/23 documented as of this encounter
--- OUTSIDE RECORDS SUMMARY | 2024-09-30 17:09 | XMS_ITS | Encounter Summary ---
Author Organization [facility] [employer] Address [address] [place] [address] Care Team Providers Care Chief Arson Division Name Role Phone Stacy Moise Primary Care Provider [phone] Encounter Details Date Type Department Care Team (Late st Contact Info) Description 11/27/2021 Transcribed Document [facility] Radiology [address] [place] [address] Carmen Hicks MD [facility] Dept [place] [address] Social History Tobacco Use Types Packs/Day Years Used Date Smoking Tobacco: Never Assessed Sex and Gender Information Value Date Recorded Sex Assigned at Not on file Legal Sex Male 5:25 PM CDT Gender Identity Not on file Sexual Orientation Not on file documented as of this encounter Miscellaneous Notes * Cerner Conversion Note - Carmen Hicks MD - 11/27/2021 7:37 AM EST CR Chest 1 Vw Portable Ordered: 11/26/2021 Modified Reason for Exam: cp 11/26/2021 13:01 11/27/2021 06:37 (CARMEN HICKS MD-EMR) Reviewed by Provider, No further action required x1 documented in this encounter Plan of Treatment Upcoming Encounters Date Type Department Care Team (Late st Contact Info) Description 03/10/2025 1:15 PM EDT Office Visit [facility] Cardiology - [address] [address] Tabby Mcallister PA-C [address] [facility] [address] [place] [address] documented as of this encounter Visit Diagnoses Not on filedocumented in this encounter Care Teams Chief Arson Division Relationship Specialty Start Date End Date Stacy Moise PA PCP - General 03/02/23 documented as of this encounter
--- OUTSIDE RECORDS SUMMARY | 2024-09-30 17:09 | XMS_ITS | Encounter Summary ---
Author Organization [facility] [employer] Address [address] [place] [address] Care Team Providers Care Burning Plant Operator Name Role Phone Stacy Mosie Primary Care Provider [phone] Encounter Details Date Type Department Care Team (Late st Contact Info) Description 01/07/2022 Historic Encounter [facility] [address] [place] [address] ProviderJuan Historical Social History Tobacco [...] Office Visit [facility] Cardiology - [place] [address] [place] [address] Tabby Mcallister PA-C [address] [place] [address] [address] [place] [address] documented as of this encounter Procedures Procedure Name Priority Date/Time Associated Diagnosis Comments CBC W/ AUTO DIFF ([facility] DATA [facility]V) Routine 01/07/2022 11:05 PM EST documented in this encounter Results * (ABNORMAL) CBC W/ AUTO DIFF ([facility] DATA [facility]V) (01/07/2022 11:05 PM EST) WBC 14.1(H) 3.6 - 9.5 K/uL 01/08/2022 4:19 AM EST RBC 5.54 4.20 - 5.70 Million/uL 01/08/2022 4:19 AM EST Hgb 17.1 13.5 - 17.3 g/dL 01/08/2022 4:19 AM EST Hct 48.2 40.1 - 51.0 % 01/08/2022 4:19 AM EST MCV 87.0 79.0 - 94.8 fL 01/08/2022 4:19 AM EST MCH 30.9 25.6 - 32.2 pg 01/08/2022 4:19 AM EST MCHC 35.5 32.2 - 36.5 Gram/dL 01/08/2022 4:19 AM EST RDW 12.7 11.7 - 14.9 % 01/08/2022 4:19 AM EST Platelet Count 306 163 - 369 K/uL 01/08/2022 4:19 AM EST MPV 10.4 9.4 - 12.4 fL 01/08/2022 4:19 AM EST Slide Review Add Diff Man 01/08/2022 4:57 AM EST Blood 01/07/2022 11:0 5 PM EST 01/08/2022 4:17 AM EST [facility] Historical Provider LAB BLOOD ORDERABLES Fi nal Result [facility] [address] [place] [address], [facility] [phone] documented in this encounter Visit Diagnoses Not on filedocumented in this encounter Care Teams Burning Plant Operator Relationship Specialty Start Date End Date Stacy Moise PA PCP - General 03/02/23 documented as of this encounter
--- OUTSIDE RECORDS SUMMARY | 2024-09-30 17:09 | XMS_ITS | Encounter Summary ---
Author Organization [employer] Address [address] [facility] [place] [address] Care Team Providers Care Line Controller Name Role Phone Stacy Moise Primary Care Provider [phone] Encounter Details Date Type Department Care Team (Late st Contact Info) Description 01/08/2022 Transcribed Document [facility] [place] [place] [address] ProviderMireya MD [address] [place] [address] [id number] Social History Tobacco Use Types Packs/Day Years Used Date Smoking Tobacco: Never Assessed Sex and Gender Information Value Date Recorded Sex Assigned at Not on file Legal Sex Male 5:25 PM CDT Gender Identity Not on file Sexual Orientation Not on file documented as of this encounter Miscellaneous Notes * Cerner Conversion Note - Mireya ProviderMD - 01/08/2022 2:35 AM CAR [facility] ED Discharge Entered On: 01/08/2022 2:35 EST Performed On: 01/08/2022 2:35 EST by Ellie Villareal RN Discharge Process Patient Disposition : Admit/Observe Personal Belongings With Patient : Yes IV Discontinued : No Nursing Documentation Completed : Yes Ellie Villareal RN - 01/08/2022 2:35 EST Admission, ED Nurse Report Accepted By : Called by previous RN `Nurse Report (Hand Off) : Called Accompanied By, Discharge : Unaccompanied Mode Of Departure : Stretcher Ellie Villareal RN - 01/08/2022 2:35 EST Electronically signed by Juarez [facility] Conversion Gear Shaver Set Up Operator Cerner at 02/16/2023 3:53 PM CDT documented in this encounter Plan of Treatment Upcoming Encounters Date Type Department Care Team (Late st Contact Info) Description 03/10/2025 1:15 PM EDT Office Visit [facility] Cardiology - [place] [address] [place] [address] Tabby Mcallister PA-Yuliana [address] [facility] [address] [place] [address] documented as of this encounter Visit Diagnoses Not on filedocumented in this encounter Care Teams Line Controller Relationship Specialty Start Date End Date Stacy Moise PA PCP - General 03/02/23 documented as of this encounter
--- OUTSIDE RECORDS SUMMARY | 2024-09-30 17:10 | XMS_ITS | Encounter Summary ---
Author Organization [facility] [address] In [employer] Address [address] [place] [address] Care Team Providers Care Grocery Clerk Marking Name Role Phone Stacy Moise Primary Care Provider [phone] Encounter Details Date Type Department Care Team (Late st Contact Info) Description 11/26/2021 Transcribed Document [facility] Family [place] [facility] [place] [address] ProviderMireya MD [address] [place] [address] Social History Tobacco Use Types Packs/Day Years Used Date Smoking Tobacco: Never Assessed Sex and Gender Information Value Date Recorded Sex Assigned at Not on file Legal Sex Male 5:25 PM CDT Gender Identity Not on file Sexual Orientation Not on file documented as of this encounter Miscellaneous Notes * Cerner Conversion Note - Historical ProviderMD - 11/26/2021 5:38 PM FAX MACHINE REPAIRER Electronically signed by Juarez [facility] Conversion Explosive Ordnance Disposal Technician Cerner at 02/16/2023 4:00 PM CDT documented in this encounter Plan of Treatment Upcoming Encounters Date Type Department Care Team (Late st Contact Info) Description 03/10/2025 1:15 PM EDT Office Visit [facility] Cardiology - [place] [address] [place] [address] Tabby Mcallister PA-C [address] [facility] [address] [place] [address] documented as of this encounter Visit Diagnoses Not on filedocumented in this encounter Care Teams Grocery Clerk Marking Relationship Specialty Start Date End Date Stacy Moise PA PCP - General 03/02/23 documented as of this encounter
--- OUTSIDE RECORDS SUMMARY | 2024-09-30 17:10 | XMS_ITS | Encounter Summary ---
Author Organization [employer] [place] [employer] Address [address] [place] [address] Care Team Providers Care Senior Strategy Manager Name Role Phone Stacy Moise Primary Care Provider [phone] Encounter Details Date Type Department Care Team (Late st Contact Info) Description 11/27/2020 Transcribed Document [facility] Family Medicine [facility] [place] [address] ProviderMireya MD [address] [place] [address] Social History Tobacco Use Types Packs/Day Years Used Date Smoking Tobacco: Never Assessed Sex and Gender Information Value Date Recorded Sex Assigned at Not on file Legal Sex Male 5:25 PM CDT Gender Identity Not on file Sexual Orientation Not on file documented as of this encounter Miscellaneous Notes * Cerner Conversion Note - Historical ProviderMD - 11/27/2020 11:18 AM INSOLE TACKER CR Chest 2 Vws Ordered: 11/26/2020 Auth (Verified) Reason for Exam: Already did the x ray 11/27/2020 10:01 11/27/2020 11:18 (MICHAEL PARKS) No further action required documented in this encounter Plan of Treatment Upcoming Encounters Date Type Department Care Team (Late st Contact Info) Description 03/10/2025 1:15 PM EDT Office Visit [facility] Cardiology - [place] [address] [place] [address] Tabby Mcallister PA-C [address] [facility] [address] [place] [address] documented as of this encounter Visit Diagnoses Not on filedocumented in this encounter Care Teams Senior Strategy Manager Relationship Specialty Start Date End Date Stacy Moise PA PCP - General 03/02/23 documented as of this encounter
--- OUTSIDE RECORDS SUMMARY | 2024-09-30 17:10 | XMS_ITS | Encounter Summary ---
Author Organization [facility] In iatives Address [address] [place] [address] Care Team Providers Care Roll Hand Name Role Phone Stacy Moise Primary Care Provider [phone] Encounter Details Date Type Department Care Team (Late st Contact Info) Description 01/25/2021 Historic Encounter [facility] [address] [place] [address] ProviderJuan Historical Social History Tobacco [...] Description 03/10/2025 1:15 PM EDT Office Visit [facility] Cardiology - [place] [address] [place] [address] Tabby Mcallister PA-C [address] [place] [address] [address] [place] [address] documented as of this encounter Procedures Procedure Name Priority Date/Time Associated Diagnosis Comments CORONAVIRUS 2019 NOVEL ([facility] DATA CONV) Routine 01/25/2021 1:46 PM EDT documented in this encounter Results * CORONAVIRUS 2019 NOVEL ([facility] DATA CONV) (01/25/2021 1:46 PM EDT) SARS-CoV-2 ([id number]) Negative Negative 01/25/2021 11:32 PM EDT [facility] Comment: Testing was performed using RT-PCR methodology [...] to the current CDC recommendations. Performing Lab: [facility] Max 11:32 PM EDT [facility] Reason for Testing Surveillance Intake 01/25/2021 5:58 PM EDT [facility] First Test Unknown 01/25/2021 5:58 PM EDT [facility] Employed in Healthcare Unknown 01/25/2021 5:58 PM EDT [facility] Symptomatic as defined by CDC Unknown 01/25/2021 5:58 PM EDT [facility] Resident in congregate setting Unknown 01/25/2021 5:58 PM EDT [facility] Unknown 01/25/2021 5:58 PM EDT [facility] Hospitalized No 01/25/2021 5:58 PM EDT [facility] ICU No 01/25/2021 5:58 PM EDT [facility] 01/25/2021 1:46 PM EDT 01/25/2021 5:49 PM [address]T [facility] Historical Provider BODY FLUIDS AND STOOLS ORDERABLES Final Result [facility] [address] [phone] documented in this encounter Visit Diagnoses Not on filedocumented in this encounter Care Teams Roll Hand Relationship Specialty Start Date End Date Stacy Moise PA PCP - General 03/02/23 documented as of this encounter
--- OUTSIDE RECORDS SUMMARY | 2024-09-30 17:10 | XMS_ITS | Encounter Summary ---
Author Organization [facility] [employer] Address [address] [place] [address] Care Team Providers Care Acid Pump Operator Name Role Phone Stacy Moise Primary Care Provider Encounter Details Date Type Department Care Team (Late st Contact Info) Description 05/05/2021 Transcribed Document [facility] [place] [facility] [place] [address] ProviderMireya MD [address] [place] [address] Social History Tobacco Use Types Packs/Day Years Used Date Smoking Tobacco: Never Assessed Sex and Gender Information Value Date Recorded Sex Assigned at Not on file Legal Sex Male 5:25 PM CDT Gender Identity Not on file Sexual Orientation Not on file documented as of this encounter Miscellaneous Notes * Cerner Conversion Note - Historical ProviderMD - 05/05/2021 2:19 PM CDT Electronically signed by Juarez [facility] Conversion State Inspector Cerner at 02/16/2023 3:49 PM CDT documented in this encounter Plan of Treatment Upcoming Encounters Date Type Department Care Team (Late st Contact Info) Description 03/10/2025 1:15 PM EDT Office Visit [facility] Cardiology - [place] [address] [place] [address] Tabby Mcallister PA-C [address] [facility] [address] [place] [address] documented as of this encounter Visit Diagnoses Not on filedocumented in this encounter Care Teams Acid Pump Operator Relationship Specialty Start Date End Date Stacy Moise PA PCP - General 03/02/23 documented as of this encounter
--- OUTSIDE RECORDS SUMMARY | 2024-09-30 17:10 | XMS_ITS | Encounter Summary ---
Author Organization [employer] Address [address] [facility] [address] Care Team Providers Care Supervisor Finishing Room Name Role Phone Stacy Moise Primary Care Provider [phone] Encounter Details Date Type Department Care Team (Late st Contact Info) Description 11/26/2021 Transcribed Document [facility] [place] [facility] [place] [address] ProviderMireya MD [address] [place] [address] [phone] Social History Tobacco Use Types Packs/Day Years Used Date Smoking Tobacco: Never Assessed Sex and Gender Information Value Date Recorded Sex Assigned at Not on file Legal Sex Male 5:25 PM CDT Gender Identity Not on file Sexual Orientation Not on file documented as of this encounter Miscellaneous Notes * Cerner Conversion Note - Mireya ProviderMD - 11/26/2021 11:29 AM TECHNICAL INFORMATION SPECIALIST ED Assessment Entered On: 11/26/2021 13:49 EST Performed On: 11/26/2021 13:43 EST by Funmilayo Alfonso RN-PATIENT CARE BEDSIDE NON-EXEMPT ED Quick Look Assessment Level of Consciousness : Alert, Awake Affect/Behavior : Appropriate, Calm, Cooperative Orientation : Oriented x 4 Skin Temperature : Warm Skin Description : Normal for ethnicity Funmilayo Alfonso RN-PATIENT CARE BEDSIDE NON-EXEMPT - 11/26/2021 13:43 EST ED General-Functional Assess Preferred Communication Mode : Verbal Communication Barrier : None Primary Language : Omani Any Spiritual/Cultural Needs or Requests : No Currently in Unsafe Situation : No Funmilayo Alfonso RN-PATIENT CARE BEDSIDE NON-EXEMPT - 11/26/2021 13:43 EST Social Habits Smoking Status : 5-9 cigarettes (between 1/4 to 1/2 pack)/day in last 30 days Smokeless Tobacco Status : Never Desires Tobacco Cessation Medication : No Reason for No Tobacco Cessation Medication : ED/procedural patient only Desires Tobacco Cessation Calc : 1 Funmilayo Alfonso RN-PATIENT CARE BEDSIDE NON-EXEMPT - 11/26/2021 13:43 EST Social History (As Of: 11/26/2021 13:49:29 EST) Tobacco: Smoking Status Current every day [...] 07/21/2014 22:40:52 EDT by SON DUMONT PA-C) Cardiovascular ASMT, ED Cardiovascular Assessment WDL : WDL with exceptions (Comment: c/o chest pain. states having a few stents placed in his heart and stomach. [Funmilayo Alfonso RN-PATIENT CARE BEDSIDE NON-EXEMPT - 11/26/2021 13:43 EST] ) Cardiovascular Symptoms : Chest discomfort at rest, Chest discomfort with activity, Chest pain with activity Funmilayo Alfonos RN-PATIENT CARE BEDSIDE NON-EXEMPT - 11/26/2021 13:43 EST Respiratory Respiratory Assessment WDL : WDL Funmilayo Alfonso RN-PATIENT CARE BEDSIDE NON-EXEMPT - 11/26/2021 13:43 EST Gastrointestinal ED Gastrointestinal Assessment WDL : WDL Funmilayo Alfonso RN-PATIENT CARE BEDSIDE NON-EXEMPT - 11/26/2021 13:43 EST Genitourinary Assessment, ED Genitourinary Assessment WDL : WDL Funmilayo Alfonso RN-PATIENT CARE BEDSIDE NON-EXEMPT - 11/26/2021 13:43 EST Musculoskeletal Musculoskeletal Assessment WDL : WDFunmilayo Acevedo RN-PATIENT CARE BEDSIDE NON-EXEMPT - 11/26/2021 13:43 EST Integumentary Assessment Integumentary Assessment WDL : WDFunmilayo Acevedo RN-PATIENT CARE BEDSIDE NON-EXEMPT - 11/26/2021 13:43 EST Neurologic ASMT, ED Neurologic Assessment WDL : WDL Neurological Symptoms : None Level of Consciousness : Alert, Awake Affect/Behavior : Appropriate, Calm, Cooperative Speech : Clear Orientation : Oriented x 4 Sherman Coma Scale Link : Open GCS Funmilayo Alfonso RN-PATIENT CARE BEDSIDE NON-EXEMPT - 11/26/2021 13:43 EST Zoë Coma Zoë Best Motor Response : Obey commands Zoë Best Verbal Response : Oriented Sherman Eye Opening Response : Spontaneous Sherman Coma Score : 15 Funmilayo Alfonso RN-PATIENT CARE BEDSIDE NON-EXEMPT - 11/26/2021 13:43 EST Electronically signed by Juarez [facility] Conversion Cartographic Engineer Cerner at 02/16/2023 3:48 PM CDT documented in this encounter Plan of Treatment Upcoming Encounters Date Type Department Care Team (Late st Contact Info) Description 03/10/2025 1:15 PM EDT Office Visit [facility] Cardiology - [place] [address] [place] [address] Tabby Mcallister PA-C [address] [facility] [address] [place] [address] documented as of this encounter Visit Diagnoses Not on filedocumented in this encounter Care Teams Supervisor Finishing Room Relationship Specialty Start Date End Date Stacy Moise PA PCP - General 03/02/23 documented as of this encounter
--- OUTSIDE RECORDS SUMMARY | 2024-09-30 17:10 | XMS_ITS | Encounter Summary ---
Author Organization [employer] Address [address] [place] [address] Care Team Providers Care Filing Or Registry Clerk Name Role Phone Stacy Moise Primary Care Provider [phone] Encounter Details Date Type Department Care Team (Late st Contact Info) Description 01/28/2021 Transcribed Document [facility] [place] [facility] [place] [address] ProviderMireya MD [address] [place] [address] [id number] Social History Tobacco Use Types Packs/Day Years Used Date Smoking Tobacco: Never Assessed Sex and Gender Information Value Date Recorded Sex Assigned at Not on file Legal Sex Male 5:25 PM CDT Gender Identity Not on file Sexual Orientation Not on file documented as of this encounter Miscellaneous Notes * Cerner Conversion Note - Mireya Osuna MD - 01/28/2021 11:55 AM CDT Patient: SCOTTIE CURRAN Age: 75 years Sex: Male : 1945 Associated Diagnoses: None Author: ROSE ZHAO MD-RAD Procedure Performed: Renal arteriogram Procedural MD: Marlene Signals Intelligence Analyst: _None Sedation: None 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 Lesion treated with TESTING AND REGULATING TECHNICIAN with good result Lt renal - _ No sign stenosis _ _ Complications: No significant EBL: Minimal Full report to follow. Electronically signed by [facility] Conversion Carcass Splitter Cerner at 02/16/2023 3:57 PM CDT documented in this encounter Plan of Treatment Upcoming Encounters Date Type Department Care Team (Late st Contact Info) Description 03/10/2025 1:15 PM EDT Office Visit [facility] Cardiology - [place] [address] [place] [address] Tabby Mcallister PA-Yuliana [address] [facility] [address] [place] [address] documented as of this encounter Visit Diagnoses Not on filedocumented in this encounter Care Teams Filing Or Registry Clerk Relationship Specialty Start Date End Date Stacy Moise PA PCP - General 03/02/23 documented as of this encounter
--- OUTSIDE RECORDS SUMMARY | 2024-09-30 17:10 | XMS_ITS | Encounter Summary ---
Author Organization [employer] In [employer] Address [address] [place] [address] Care Team Providers Care Meal Miller Name Role Phone Stacy Moise Primary Care Provider [phone] Encounter Details Date Type Department Care Team (Late st Contact Info) Description 05/05/2021 Transcribed Document [facility] [place] [place] Family [place] [facility] [place] [address] ProviderMireya MD [address] [place] [phone] Social History Tobacco Use Types Packs/Day Years Used Date Smoking Tobacco: Never Assessed Sex and Gender Information Value Date Recorded Sex Assigned at Not on file Legal Sex Male 5:25 PM CDT Gender Identity Not on file Sexual Orientation Not on file documented as of this encounter Miscellaneous Notes * Cerner Conversion Note - Mireya ProviderMD - 05/05/2021 12:36 PM CDT [place] Suicide Severity Rating Scale (C-SSRS) Entered On: 05/05/2021 12:52 EDT Performed On: 05/05/2021 12:52 EDT by BOLA RIOS RN [place] Suicide Severity Rating Scale (C-SSRS) CSSRS Past Month Wish to be : No CSSRS Past Month Suicidal Thoughts : No CSSRS Lifetime Suicide Behavior : No Suicide Severity Rating Score : 0 Suicide Severity Rating : No Additional Care Required at this time BOLA RIOS RN - 05/05/2021 12:52 EDT documented in this encounter Plan of Treatment Upcoming Encounters Date Type Department Care Team (Late st Contact Info) Description 03/10/2025 1:15 PM EDT Office Visit [facility] Cardiology - [place] [address] [place] [address] Tabby Mcallister PA-Yuliana [address] [facility] [address] [place] [address] documented as of this encounter Visit Diagnoses Not on filedocumented in this encounter Care Teams Meal Miller Relationship Specialty Start Date End Date Stacy Moise PA PCP - General 03/02/23 documented as of this encounter
--- OUTSIDE RECORDS SUMMARY | 2024-09-30 17:10 | XMS_ITS | Encounter Summary ---
Author Organization [employer] Address [address] [place] [address] Care Team Providers Care Laboratory Asst Name Role Phone Stacy Moise Primary Care Provider [phone] Encounter Details Date Type Department Care Team (Late st Contact Info) Description 08/28/[address] [facility] [place] Family [place] [facility] [place] [address] ProviderMireya MD [address] [place] [address] [phone] Social History Tobacco Use Types Packs/Day Years Used Date Smoking Tobacco: Never Assessed Sex and Gender Information Value Date Recorded Sex Assigned at Not on file Legal Sex Male 5:25 PM CDT Gender Identity Not on file Sexual Orientation Not on file documented as of this encounter Miscellaneous Notes * Cerner Conversion Note - Mireya Osuna MD - 08/28/2021 7:24 PM CDT Pain Assessment Entered On: 08/28/2021 21:38 EDT Performed On: 08/28/2021 21:38 EDT by Shelby Sánchez RN-PATIENT CARE BEDSIDE NON-EXEMPT Intervention Information: acetaminophen-codeine Performed by Shelby Sánchez RN-PATIENT CARE BEDSIDE NON-EXEMPT on 08/28/2021 20:17:00 EDT acetaminophen-codeine,1Tab Oral Pain Assessment Pain Assessment : Follow-up assessment Pain Scale Used : 0-10 Scale Shelby Sánchez RN-PATIENT CARE BEDSIDE NON-EXEMPT - 08/28/2021 21:38 EDT Pain Scale Intensity : 1 Shelby Sánchez RN-PATIENT CARE BEDSIDE NON-EXEMPT - 08/28/2021 21:38 EDT Image 4 - Images currently included in the form version of this document have not been included in the text rendition version of the form. Electronically signed by Katie Pizarro Conversion Sexual Assault Response Coordinator Cerner at 02/16/2023 4:07 PM CDT documented in this encounter Plan of Treatment Upcoming Encounters Date Type Department Care Team (Late st Contact Info) Description 03/10/2025 1:15 PM EDT Office Visit [facility] Cardiology - [place] [address] [place] [address] Tabby Mcallister PA-C [address] [facility] [address] [place] [address] documented as of this encounter Visit Diagnoses Not on filedocumented in this encounter Care Teams Laboratory Asst Relationship Specialty Start Date End Date Stacy Moise PA PCP - General 03/02/23 documented as of this encounter
--- OUTSIDE RECORDS SUMMARY | 2024-09-30 17:10 | XMS_ITS | Encounter Summary ---
Author Organization [employer] Address [address] [facility] [place] [address] Care Team Providers Care Funeral Limousine Driver Name Role Phone Stacy Moise Primary Care Provider [phone] Encounter Details Date Type Department Care Team (Late st Contact Info) Description 01/28/2021 Transcribed Document [facility] Family Medicine [facility] [place] [address] ProviderMireya MD [address] [place] [address] [phone] Social History Tobacco Use Types Packs/Day Years Used Date Smoking Tobacco: Never Assessed Sex and Gender Information Value Date Recorded Sex Assigned at Not on file Legal Sex Male 5:25 PM CDT Gender Identity Not on file Sexual Orientation Not on file documented as of this encounter Miscellaneous Notes * Cerner Conversion Note - Historical ProviderMD - 01/28/2021 12:05 PM CDT Event Note Entered On: 01/28/2021 15:10 EDT Performed On: 01/28/2021 12:05 EDT by Lorena Brannon RN Event Note Event Date/Time : 01/28/2021 12:05 EDT Event Location : Assigned room Event Details : Nursing assessment additional narrative Description of Event : Pt returned to room post procedure with sheath in place in right groin, orders to remove at 12:15. Groin is soft, CDI. Attached to monitor and VSS. Pt is awake and alert, denies pain. Lorena Brannon RN - 01/28/2021 15:08 EDT documented in this encounter Plan of Treatment Upcoming Encounters Date Type Department Care Team (Late st Contact Info) Description 03/10/2025 1:15 PM EDT Office Visit [facility] Cardiology - [place] [address] [place] [address] Tabby Mcallister PA-Yuliana [address] [facility] [address] [place] [address] documented as of this encounter Visit Diagnoses Not on filedocumented in this encounter Care Teams Funeral Limousine Driver Relationship Specialty Start Date End Date Stacy Moise PA PCP - General 03/02/23 documented as of this encounter
--- OUTSIDE RECORDS SUMMARY | 2024-09-30 17:10 | XMS_ITS | Encounter Summary ---
Author Organization [employer] Address [address] [place] [address] Care Team Providers Care Claim Service Representative Name Role Phone Stacy Moise Primary Care Provider [phone] Encounter Details Date Type Department Care Team (Late st Contact Info) Description 01/28/2021 Transcribed Document [facility] [facility] [place] [address] ProviderMireya MD [address] [place] [id number] Social History Tobacco Use Types Packs/Day Years Used Date Smoking Tobacco: Never Assessed Sex and Gender Information Value Date Recorded Sex Assigned at Not on file Legal Sex Male 5:25 PM CDT Gender Identity Not on file Sexual Orientation Not on file documented as of this encounter Miscellaneous Notes * Cerner Conversion Note - Mireya Osuna MD - 01/28/2021 12:00 PM CDT Patient Education Materials Follows: Groin Site Care Refer to this sheet in the next few weeks. These instructions provide you with information on caring for yourself after your procedure. Your caregiver may also give you more specific instructions. Your treatment has been planned according to current medical practices, but problems sometimes occur. Call your caregiver if you have any problems or questions after your procedure. HOME CARE INSTRUCTIONS ? You may shower 24 hours after the procedure. Remove the bandage (dressing ) and gently wash the site with plain soap and water. Gently pat the site dry. ? Do not apply powder or lotion to the site. ? Do not sit in a bathtub, swimming pool, or whirlpool for 5 to 7 days. ? No bending, squatting, or lifting anything over 10 pounds (4.5 kg) as directed by your caregiver. ? Inspect the site at least twice daily. ? Do not drive home if you are discharged the same day of the procedure. Have someone else drive you. ? You may drive 24 hours after the procedure unless otherwise instructed by your caregiver. What to expect: ? Any bruising will usually fade within 1 to 2 weeks. ? Blood that collects in the tissue (hematoma ) may be painful to the touch. It should usually decrease in size and tenderness within 1 to 2 weeks. SEEK IMMEDIATE MEDICAL CARE IF: ? You have unusual pain at the groin site or down the affected leg. ? You have redness, warmth, swelling, or pain at the groin site. ? You have drainage (other than a small amount of blood on the dressing). ? You have chills. ? You have a fever or persistent symptoms for more than 72 hours. ? You have a fever and your symptoms suddenly get worse. ? Your leg becomes pale, cool, tingly, or numb. ? You have heavy bleeding from the site. Hold pressure on the site. Document Released: 11/21/2011 Document Revised: 01/10/2013 Document Reviewed: 11/21/2011 ExitCare? Patient Information ?2014 [employer]. Angiogram, Care After This sheet gives you information about how to care for yourself after your procedure. Your doctor may also give you more specific instructions. If you have problems or questions, contact your doctor. Follow these instructions at home: Insertion site care ??? Follow instructions from your doctor about how to take care of your long, thin tube (catheter) insertion area. Make sure you: ? Wash your hands with soap and water before you change your bandage (dressing). If you cannot use soap and water, use hand button facing machine operator. ? Change your bandage as told by your doctor. ? Leave stitches (sutures), skin glue, or skin tape (adhesive) strips in place. They may need to stay in place for 2 weeks or longer. If tape strips get loose and curl up, you may trim the loose edges. Do not remove tape strips completely unless your doctor says it is okay. ??? Do not take baths, swim, or use a hot tub until your doctor says it is okay. ??? You may shower 24?48 hours after the procedure or as told by your doctor. ? Gently wash the area with plain soap and water. ? Pat the area dry with a clean towel. ? Do not rub the area. This may cause bleeding. ??? Do not apply powder or lotion to the area. Keep the area clean and dry. ??? Check your insertion area every day for signs of infection. Check for: ? More redness, swelling, or pain. ? Fluid or blood. ? Warmth. ? Pus or a bad smell. Activity ??? Rest as told by your doctor, usually for 1?2 days. ??? Do not lift anything that is heavier than 10 lbs. (4.5 kg) or as told by your doctor. ??? Do not drive for 24 hours if you were given a medicine to help you relax (sedative). ??? Do not drive or use heavy machinery while taking prescription pain medicine. General instructions ??? Go back to your normal activities as told by your doctor, usually in about a week. Ask your doctor what activities are safe for you. ??? If the insertion area starts to bleed, lie flat and put pressure on the area. If the bleeding does not stop, get help right away. This is an emergency. ??? Drink enough fluid to keep your pee (urine) clear or pale yellow. ??? Take tewl-cji-iwblbxi and prescription medicines only as told by your doctor. ??? Keep all follow-up visits as told by your doctor. This is important. Contact a doctor if: ??? You have a fever. ??? You have chills. ??? You have more redness, swelling, or pain around your insertion area. ??? You have fluid or blood coming from your insertion area. ??? The insertion area feels warm to the touch. ??? You have pus or a bad smell coming from your insertion area. ??? You have more bruising around the insertion area. ??? Blood collects in the tissue around the insertion area (hematoma) that may be painful to the touch. Get help right away if: ??? You have a lot of pain in the insertion area. ??? The insertion area swells very fast. ??? The insertion area is bleeding, and the bleeding does not stop after holding steady pressure on the area. ??? The area near or just beyond the insertion area becomes pale, cool, tingly, or numb. These symptoms may be an emergency. Do not wait to see if the symptoms will go away. Get medical help right away. Call your local emergency services (911 in the [place] Do not drive yourself to the hospital. Summary ??? After the procedure, it is common to have bruising and tenderness at the long, thin tube insertion area. ??? After the procedure, it is important to rest and drink plenty of fluids. ??? Do not take baths, swim, or use a hot tub until your doctor says it is okay to do so. You may shower 24?48 hours after the procedure or as told by your doctor. ??? If the insertion area starts to bleed, lie flat and put pressure on the area. If the bleeding does not stop, get help right away. This is an emergency. This information is not intended to replace advice given to you by your health care provider. Make sure you discuss any questions you have with your health care provider. Document Revised: 10/01/2018 Document Reviewed: 10/13/2017 [employer] Patient Education ? 2020 [employer] Heart-Healthy Eating Plan Heart-healthy meal planning includes: ??? Eating less unhealthy fats. ??? Eating more healthy fats. ??? Making other changes in your diet. Talk with your doctor or a diet specialist (dietitian) to create an eating plan that is right for you. What is my plan? Your doctor may recommend an eating plan that includes: ??? Total fat: % or less of total calories a day. ??? Saturated fat: % or less of total calories a day. ??? Cholesterol: less than mg a day. What are tips for following this plan? Cooking Avoid frying your food. Try to bake, boil, grill, or broil it instead. You can also reduce fat by: ??? Removing the skin from poultry. ??? Removing all visible fats from meats. ??? Steaming vegetables in water or broth. Meal planning ??? At meals, divide your plate into four equal parts: ? Fill one-half of your plate with vegetables and green salads. ? Fill one-fourth of your plate with whole grains. ? Fill one-fourth of your plate with lean protein foods. ??? Eat 4?5 servings of vegetables per day. A serving of vegetables is: ? 1 cup of raw or cooked vegetables. ? 2 cups of raw leafy greens. ??? Eat 4?5 servings of fruit per day. A serving of fruit is: ? 1 medium whole fruit. ? ? cup of dried fruit. ? ? cup of fresh, frozen, or canned fruit. ? ? cup of 100% fruit juice. ??? Eat more foods that have soluble fiber. These are apples, broccoli, carrots, beans, peas, and barley. Try to get 20?30 g of fiber per day. ??? Eat 4?5 servings of nuts, legumes, and seeds per week: ? 1 serving of dried beans or legumes equals ? cup after being cooked. ? 1 serving of nuts is ? cup. ? 1 serving of seeds equals 1 tablespoon. General information ??? Eat more home-cooked food. Eat less restaurant, buffet, and fast food. ??? Limit or avoid alcohol. ??? Limit foods that are high in starch and sugar. ??? Avoid fried foods. ??? Lose weight if you are overweight. ??? Keep track of how much salt (sodium) you eat. This is important if you have high blood pressure. Ask your doctor to tell you more about this. ??? Try to add vegetarian meals each week. Fats ??? Choose healthy fats. These include olive oil and canola oil, flaxseeds, walnuts, almonds, and seeds. ??? Eat more omega-3 fats. These include salmon, mackerel, sardines, tuna, flaxseed oil, and ground flaxseeds. Try to eat fish at least 2 times each week. ??? Check food labels. Avoid foods with trans fats or high amounts of saturated fat. ??? Limit saturated fats. ? These are often found in animal products, such as meats, butter, and cream. ? These are also found in plant foods, such as palm oil, palm kernel oil, and coconut oil. ??? Avoid foods with partially hydrogenated oils in them. These have trans fats. Examples are stick margarine, some tub margarines, cookies, crackers, and other baked goods. What foods can I eat? Fruits All fresh, canned (in natural juice), or frozen fruits. Vegetables Fresh or frozen vegetables (raw, steamed, roasted, or grilled). Green salads. Grains Most grains. Choose whole wheat and whole grains most of the time. Rice and pasta, including brown rice and pastas made with whole wheat. Meats and other proteins Lean, well-trimmed beef, veal, pork, and noyola. Chicken and turkey without skin. All fish and shellfish. Wild duck, rabbit, pheasant, and venison. Egg whites or low-cholesterol egg substitutes. Dried beans, peas, lentils, and tofu. Seeds and most nuts. Dairy Low-fat or nonfat cheeses, including ricotta and mozzarella. Skim or 1% milk that is liquid, powdered, or evaporated. Buttermilk that is made with low-fat milk. Nonfat or low-fat yogurt. Fats and oils Non-hydrogenated (trans-free) margarines. Vegetable oils, including soybean, sesame, sunflower, olive, peanut, safflower, corn, canola, and cottonseed. Salad dressings or mayonnaise made with a vegetable oil. Beverages Mineral water. Coffee and tea. Diet carbonated beverages. Sweets and desserts Sherbet, gelatin, and fruit ice. Small amounts of dark chocolate. Limit all sweets and desserts. Seasonings and condiments All seasonings and condiments. The items listed above may not be a complete list of foods and drinks you can eat. Contact a dietitian for more options. What foods should I avoid? Fruits Canned fruit in heavy syrup. Fruit in cream or butter sauce. Fried fruit. Limit coconut. Vegetables Vegetables cooked in cheese, cream, or butter sauce. Fried vegetables. Grains Breads that are made with saturated or trans fats, oils, or whole milk. Croissants. Sweet rolls. Donuts. High-fat crackers, such as cheese crackers. Meats and other proteins Fatty meats, such as hot dogs, ribs, sausage, mcconnell, rib-eye roast or steak. High-fat deli meats, such as salami and bologna. Caviar. Domestic duck and goose. Organ meats, such as liver. Dairy Cream, sour cream, cream cheese, and creamed cottage cheese. Whole-milk cheeses. Whole or 2% milk that is liquid, evaporated, or condensed. Whole buttermilk. Cream sauce or high-fat cheese sauce. Yogurt that is made from whole milk. Fats and oils Meat fat, or shortening. Imperial butter, hydrogenated oils, palm oil, coconut oil, palm kernel oil. Solid fats and shortenings, including mcconnell fat, salt pork, lard, and butter. Nondairy cream substitutes. Salad dressings with cheese or sour cream. Beverages Regular sodas and juice drinks with added sugar. Sweets and desserts Frosting. Pudding. Cookies. Cakes. Pies. Milk chocolate or white chocolate. Buttered syrups. Full-fat ice cream or ice cream drinks. The items listed above may not be a complete list of foods and drinks to avoid. Contact a dietitian for more information. Summary ??? Heart-healthy meal planning includes eating less unhealthy fats, eating more healthy fats, and making other changes in your diet. ??? Eat a balanced diet. This includes fruits and vegetables, low-fat or nonfat dairy, lean protein, nuts and legumes, whole grains, and heart-healthy oils and fats. This information is not intended to replace advice given to you by your health care provider. Make sure you discuss any questions you have with your health care provider. Document Revised: 12/23/2018 Document Reviewed: 11/26/2018 [employer] Patient Education ? 2020 [employer] Moderate Conscious Sedation, Adult, Care After These instructions provide you with information about caring for yourself after your procedure. Your health care provider may also give you more specific instructions. Your treatment has been planned according to current medical practices, but problems sometimes occur. Call your health care provider if you have any problems or questions after your procedure. What can I expect after the procedure? After your procedure, it is common: ??? To feel sleepy for several hours. ??? To feel clumsy and have poor balance for several hours. ??? To have poor judgment for several hours. ??? To vomit if you eat too soon. Follow these instructions at home: For at least 24 hours after the procedure: ??? Do not: ? Participate in activities where you could fall or become injured. ? Drive. ? Use heavy machinery. ? Drink alcohol. ? Take sleeping pills or medicines that cause drowsiness. ? Make important decisions or sign legal documents. ? Take care of children on your own. ??? Rest. Eating and drinking ??? Follow the diet recommended by your health care provider. ??? If you vomit: ? Drink water, juice, or soup when you can drink without vomiting. ? Make sure you have little or no nausea before eating solid foods. General instructions ??? Have a responsible adult stay with you until you are awake and alert. ??? Take hduc-ulz-adwjdig and prescription medicines only as told by your health care provider. ??? If you smoke, do not smoke without supervision. ??? Keep all follow-up visits as told by your health care provider. This is important. Contact a health care provider if: ??? You keep feeling nauseous or you keep vomiting. ??? You feel light-headed. ??? You develop a rash. ??? You have a fever. Get help right away if: ??? You have trouble breathing. This information is not intended to replace advice given to you by your health care provider. Make sure you discuss any questions you have with your health care provider. Document Revised: 10/01/2018 Document Reviewed: 02/07/2017 [employer] Patient Education ? 2020 [employer] FAQ - Patient COVID-19 testing Why do I need a COVID-19 test in the hospital? We are testing patients as part of an overall effort to ensure the safety of our patients, staff and providers, and to limit the spread of the novel coronavirus throughout our community. What happens if I test positive for COVID-19? Any scheduled elective procedure will be postponed and treatment for the coronavirus will follow the protocol that is currently in place. If you are admitted to the hospital, we will use droplet precautions for patients who test positive for COVID-19. If I'm a patient, should I wear a mask? Yes. When you are in your room alone, you may remove your mask. When anyone enters your room, you should put your mask back on. Will I be allowed to have visitors if I am admitted to the hospital with COVID-19? As part of the standard care for COVID-19 patients, visitors will not be allowed to protect them from potential exposure to the novel coronavirus. If you have a health care support person with you during a pending test and the test comes back positive, your visitor will be asked to leave and follow up with their primary care provider. Public health may reach out to them to complete contact tracing. Will my status as COVID-19 positive be reported? Because COVID-19 is a public health threat, all positive cases are reported through the local health department and the [place] Department for Public Health. Those organizations are responsible for monitoring public health threats. What is contact tracing? The public health departments at the state and local levels use contact tracing to prevent the spread of infectious disease. They will work to identify people who have COVID-19 and their contacts who may have been exposed. What does contact tracing involve? Typically, a contact tracer will interview patients with COVID-19 to identify everyone with whom they have had close contact during the time they may have been infectious and then notify those contacts of potential exposure and refer them for testing. They may monitor the contacts for symptoms of COVID-19 and connect the contacts with services they may need during a recommended self-quarantine period. The patient's name is not revealed to anyone during the contact tracing interviews, even if a contact asks. Who would be considered a close contact ? According to the CDC, a close contact is defined as someone who was within 6 feet of an infected person for at least 15 minutes, starting from 48 hours before the person began feeling sick until the time the patient was isolated. What can a close contact expect during this process? A contact tracer from the health department will contact that person to inform them they have been exposed to COVID-19. If that happens, the contact should self-quarantine for 14 days, starting from the last date of possible exposure, monitor their health, wear a face covering and maintain social distancing - at least 6 feet from others at all times. Should a close contact seek medical care? Close contacts should take their temperature twice a day, watch for COVID-19 symptoms and notify the health department if they develop symptoms. They should also notify people with whom they have had recent close contact if they become ill. They should seek medical care if symptoms worsen or become severe, including trouble breathing, persistent pain or pressure in the chest, confusion, inability to wait or stay awake, or bluish lips or face. Steps to Help Prevent the Spread of COVID-19 if You Are Sick In all cases, follow the guidance of your health care provider and local health department. Your local health department determines the length of time for quarantine and will notify you with detailed information. Monitor your symptoms. Common symptoms of COVID-19 include fever, fatigue, diarrhea/vomiting, loss of taste and smell, and cough. Trouble breathing is a more serious symptom that means you should get medical attention. If you develop emergency warning signs for COVID-19 get medical attention immediately. Emergency warning signs include*: ??? Trouble breathing ??? Persistent pain or pressure in the chest ??? New confusion or inability to arouse ??? Bluish lips or face *This list is not all inclusive. Please consult your medical provider for any other symptoms that are severe or concerning. Call 911 if you have a medical emergency. If you have a medical emergency and need to call 911, notify the changeover operator that you have, or think you might have, COVID-19. If possible, put on a facemask before medical help arrives. Stay home except to get medical care. ??? Stay home: Most people with COVID-19 have mild illness and can recover at home without medical care. Do not leave your home, except to get medical care. Do not visit public areas. ??? Stay in touch with your doctor. Call before you get medical care. Be sure to get care if you have trouble breathing, or have any other emergency warning signs, or if you think it is an emergency. Separate yourself from other people in your home; this is known as home isolation. ??? Stay away from others: As much as possible, stay away from others. You should stay in a specific sick room if possible, and away from other people in your home. Use a separate bathroom, if available. Call ahead before visiting your doctor. ??? Call ahead: Many medical visits for routine care are being postponed or done by phone or telemedicine. If you have a medical appointment that cannot be postponed, call your doctor's office, and tell them you have or may have COVID-19. This will help the office protect themselves and other patients. If you are sick, wear a facemask in the following situations, if available. ??? If you are sick: You should wear a facemask, if available, when you are around other people (including before you enter a health care provider's office). ??? If you are caring for others: If the person who is sick is not able to wear a facemask (for example, because it causes trouble breathing), then as their caregiver, you should wear a facemask when in the same room with them. Visitors, other than caregivers, are not recommended. Cover your coughs and sneezes. ??? Cover: Cover your mouth and nose with a tissue when you cough or sneeze. ??? Dispose: Throw used tissues into a lined trash can. ??? Wash hands: Immediately wash your hands with soap and water for at least 20 seconds. If soap and water are not available, clean your hands with an alcohol-based hand button facing machine operator that contains at least 60% alcohol. Clean your hands often. ??? Wash hands: Wash your hands often with soap and water for at least 20 seconds when visibly dirty. This is especially important after blowing your nose, coughing or sneezing, and going to the bathroom, and before eating or preparing food. ??? Hand button facing machine operator: Use an alcohol-based hand button facing machine operator with at least 60% alcohol, covering all surfaces of your hands and rubbing them together until they feel dry. ??? Avoid touching: Avoid touching your eyes, nose and mouth with unwashed hands. Avoid sharing personal household items. ??? Do not share: Do not share dishes, drinking glasses, cups, eating utensils, towels or bedding with other people in your home. ??? Wash thoroughly after use: After using these items, wash them thoroughly with soap and water or put them in the family law mediator. Clean all high-touch surfaces every day. Clean high-touch surfaces in your isolation area ( sick room and bathroom) every day; let a caregiver clean and disinfect high-touch surfaces in other areas of the home. ??? Clean and disinfect: Routinely clean high-touch surfaces in your sick room and bathroom. Let someone else clean and disinfect surfaces in common areas, but not your bedroom and bathroom. ? If a caregiver or other person needs to clean and disinfect a sick person's bedroom or bathroom, they should do so on an as-needed basis. The caregiver/other person should wear a mask and wait as long as possible after the sick person has used the bathroom. ? High-touch surfaces include phones, remote controls, counters, tabletops, doorknobs, bathroom fixtures, toilets, keyboards, tablets and bedside tables. ??? Clean and disinfect areas that may have blood, stool, or body fluids on them. ??? Household meat stuffer and disinfectants: Clean the area or item with soap and water or another detergent if it is dirty. Then, use a household disinfectant. ?? Be sure to follow the instructions on the label to ensure safe and effective use of the product. Many products recommend keeping the surface wet for several minutes to ensure germs are killed. Many also recommend precautions such as wearing gloves and making sure you have good ventilation during use of the product. ?? Most EPA-registered household disinfectants should be effective. A full list of disinfectants can be found here: https://www.epa.gov/pesticide-registration/ukck-u-afvreuqwxhtyk-kak-erxegsa-yk rs-cov-2 documented in this encounter Plan of Treatment Upcoming Encounters Date Type Department Care Team (Late st Contact Info) Description 03/10/2025 1:15 PM EDT Office Visit [facility] Cardiology - [place] [address] [place] [address] Tabby Mcallister PA-C [address] [facility] [address] [place] [address] documented as of this encounter Visit Diagnoses Not on filedocumented in this encounter Care Teams Claim Service Representative Relationship Specialty Start Date End Date Stacy Moise PA PCP - General 03/02/23 documented as of this encounter
--- OUTSIDE RECORDS SUMMARY | 2024-09-30 17:10 | XMS_ITS | Encounter Summary ---
[facility] Address [address] [place] [address] Care Team Providers Care Die Barber Name Role Phone Unavailable Primary Care Provider Unavailabl e Encounter Details Date Type Department Care Team (Late st Contact Info) Description 08/28/[address] [facility] Radiology [address] [place] [address] Clemente Beck MD [address] [place] [address] Social History Tobacco Use Types Packs/Day Years [...] Description 03/10/2025 1:15 PM EDT Office Visit [facility] Cardiology - [place] [address] [place] [address] Tabby Mcallister PA-C 227 [facility] [address] [place] [address] documented as of this encounter Procedures Procedure Name Priority Date/Time Associated Diagnosis Comments TROPONIN I ULTRA ([facility] BKR DATA CONV) Routine 08/28/2021 8:40 PM EDT XR CHEST 1 VIEW PORTABLE / BEDSIDE Routine 08/28/2021 7:[address] BRAIN WITHOUT IV CONTRAST STAT 08/28/2021 7:40 PM EDT PROBNP ([facility] BKR DATA CONV Routine 08/28/2021 6:29 PM EDT CBC W/ AUTO DIFF ([facility] BKR DATA CONV) Routine 08/28/2021 6:29 PM EDT AUTOMATED DIFFERENTIAL ([facility] BKR DATA CONV) Routine 08/28/2021 6:29 PM EDT CMP COMPREHENSIVE METABOLIC PANEL ([facility] BKR DATA CONV) Routine 08/28/2021 6:29 PM EDT TROPONIN I ULTRA ([facility] BKR DATA CONV) Routine 08/28/2021 6:29 PM EDT RBC MORPHOLOGY Routine 08/28/2021 6:29 PM EDT documented in this encounter Results * TROPONIN I ULTRA ([facility] BKR DATA CONV) (08/28/2021 8:40 PM EDT) TroponinI Ultra <0.015 0.015 - 0.045 ng/mL 08/29/2021 1:28 AM EDT Comment: Troponin Result (ng/ml) ?* Interpretation 0.015 ? 0.045 ?* ??Normal; less than 99th percentile of normal range >0.045 ? * Abnormal; greater than 99th percentile of normal range. ?? Test precision at 0.045 ng/ml is less than 10% Coefficient of Variation. Biotin supplements can cause clinically significant incorrect lab results. The FDA has seen an increase in the number of adverse events related to biotin interference with lab tests. Blood 08/28/2021 8:40 PM EDT 08/29/2021 12:50 AM EDT [facility] Historical Provider LAB BLOOD ORDERABLES Fi nal Result [facility] ([place] [place] LABORATORY [address] [place], [place] [address] [phone] * XR chest 1 view portable / bedside (08/28/2021 7:50 PM EDT) Anatomical Region Laterality Modality X-Ray 08/28/2021 7:50 PM EDT Narrative 08/29/2021 3:32 PM EDT PORTABLE CHEST; ?? HISTORY: Precordial chest pain. COMPARISON: November 26, 2020. FINDINGS: There is a left-sided coronary artery stent noted. The heart is normal in size. ??The mediastinum is unremarkable. There is evidence of prior granulomatous disease. There is no evidence of acute infiltrate or effusion. There is no pneumothorax. 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 The osseous structures reveal prior ACDF of the lower cervical spine. IMPRESSION: No acute process. Images reviewed, interpreted, and dictated by Dr. Arnaud Urrutia. Transcribed by Danii Cook PA-C. I have personally viewed, interpreted and dictated the examination. I have read and agree with the above final transcribed report. Procedure Note Arnaud Urrutia MD - 02/17/2023 PORTABLE CHEST; HISTORY: Precordial chest pain. COMPARISON: November 26, 2020. FINDINGS: There is a left-sided coronary artery stent noted. The heart is normal in size. The mediastinum is unremarkable. There is evidence of prior granulomatous disease. There is no evidence of acute infiltrate or effusion. There is no pneumothorax. 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 The osseous structures reveal prior ACDF of the lower cervical spine. IMPRESSION: No acute process. Images reviewed, interpreted, and dictated by Dr. Arnaud Urrutia. Transcribed by Danii Cook PA-C. I have personally viewed, interpreted and dictated the examination. I have read and agree with the above final transcribed report. Arnaud Urrutia MD IMG DIAGNOSTIC IMAGING ORDERABL ES Final Result * CT brain without IV contrast (08/28/2021 7:40 PM EDT) Anatomical Region Laterality Modality Brain, Head Computed Tomogra phy 08/28/2021 7:40 PM EDT Narrative 08/29/2021 12:[address] HISTORY: Headache. Hypertension. TECHNIQUE: Multiple axial CT images were performed from the foramen magnum to the vertex without contrast. This study was performed with techniques to keep radiation doses as low as reasonably achievable, (ALARA). Individualized dose reduction techniques using automated exposure control or adjustment of mA and/or kV according to the patient size were employed. COMPARISON: 05/05/2021 FINDINGS: The ventricles are normal. There is no mass or shift of midline structures. There is no intracranial hemorrhage. No significant sinus or osseous abnormality seen. IMPRESSION: Unremarkable. Procedure Note Clemente Beck MD - 02/17/[address] HISTORY: Headache. Hypertension. TECHNIQUE: Multiple axial CT images were performed from the foramen magnum to the vertex without contrast. This study was performed with techniques to keep radiation doses as low as reasonably achievable, (ALARA). Individualized dose reduction techniques using automated exposure control or adjustment of mA and/or kV according to the patient size were employed. COMPARISON: 05/05/2021 FINDINGS: The ventricles are normal. There is no mass or shift of midline structures. There is no intracranial hemorrhage. No significant sinus or osseous abnormality seen. IMPRESSION: Unremarkable. Clemente Beck MD IM CT ORDERABLES Final Result * (ABNORMAL) AUTOMATED DIFFERENTIAL ([facility] BKR DATA CONV) (08/28/2021 6:29 PM EDT) Neut% 57.2 34.0 - 71.0 % 08/28/2021 10:45 PM EDT Lymph% 25.7 19.3 - 53.1 % 08/28/2021 10:45 PM EDT [place]% 12.8(H) 3.0 - 9.0 % 08/28/2021 10:45 PM EDT Eos% 3.3 0.0 - 7.0 % 08/28/2021 10:45 PM EDT Baso% 0.4 0.0 - 1.5 % 08/28/2021 10:45 PM EDT IG% 0.60 0.00 - 0.60 % 08/28/2021 10:45 PM EDT Neut# 5.71 1.56 - 6.13 K/uL 08/28/2021 10:45 PM EDT Lymph# 2.56 1.00 - 3.90 x10(3)/uL 08/28/2021 10:45 PM EDT [place]# 1.28(H) 0.16 - 1.00 K/uL 08/28/2021 10:45 PM EDT Eos# 0.33 0.00 - 0.80 x10(3)/uL 08/28/2021 10:45 PM EDT Baso# 0.04 0.00 - 0.20 x10(3)/uL 08/28/2021 10:45 PM EDT IG# 0.06(H) 0.00 - 0.05 x10(3)/uL 08/28/2021 10:45 PM EDT Blood 08/28/2021 6:29 PM EDT 08/28/2021 10:[address] [facility] ([place] [place] - 08/28/2021 10:49 PM EDT Added by Discern Expert [facility] Provider LAB BLOOD ORDERABLES Fi nal Result Performing Organization Address [facility] de Phone Number [facility] [place] [address] [phone] * (ABNORMAL) Smear morphology (08/28/2021 6:29 PM EDT) RBC Morphology Abnormal 08/29/2021 12:[address] Estimate Adequate Adequate 08/29/2021 12:31 AM EDT Anisocytosis 2+(A) 08/29/2021 12:31 AM EDT Blood 08/28/2021 6:29 PM EDT 08/28/2021 10:[address] [facility] [place] - 08/29/2021 12:31 AM EDT Ordered By Discern Expert Rule [facility] Provider LAB BLOOD ORDERABLES Fi nal Result Performing Organization Address City/[facility] Co de Phone Number [facility] [place] [address] [phone] * (ABNORMAL) CBC W/ AUTO DIFF ([facility] BKR DATA CONV) (08/28/2021 6:29 PM EDT) WBC 10.0(H) 3.6 - 9.5 K/uL 08/28/2021 10:45 PM EDT RBC 4.60 4.20 - 5.70 Million/u L 08/28/2021 10:45 PM EDT Hgb 13.2(L) 13.5 - 17.3 g/dL 08/28/2021 10:45 PM EDT Hct 38.8(L) 40.1 - 51.0 % 08/28/2021 10:45 PM EDT MCV 84.3 79.0 - 94.8 fL 08/28/2021 10:45 PM EDT MCH 28.7 25.6 - 32.2 pg 08/28/2021 10:45 PM EDT MCHC 34.0 32.2 - 36.5 Gram/dL 08/28/2021 10:45 PM EDT RDW 20.9(H) 11.7 - 14.9 % 08/28/2021 10:45 PM EDT Platelet Count 305 163 - 369 K/uL 08/28/2021 10:45 PM EDT MPV 9.7 9.4 - 12.4 fL 08/28/2021 10:45 PM EDT Slide Review Technologist 08/29/2021 12:31 AM EDT Blood 08/28/2021 6:29 PM EDT 08/28/2021 10:40 PM EDT [facility] Historical Provider LAB BLOOD ORDERABLES Fi nal Result [facility] ([place] [place] [address] [phone] * (ABNORMAL) CMP COMPREHENSIVE METABOLIC PANEL ([facility] BKR DATA CONV) (08/28/2021 6:29 PM EDT) Sodium Level 140 136 - 146 mmol/L 08/28/2021 11:14 PM EDT Potassium Level 4.5 3.5 - 5.1 mmol/L 08/28/2021 11:14 PM EDT Chloride Level 110 102 - 112 mmol/L 08/28/2021 11:14 PM EDT Carbon Dioxide Level 23 21 - 32 mmol/L 08/28/2021 11:14 PM EDT Anion Gap 12 9 - 20 08/28/2021 11:14 PM EDT Calcium Level 8.9 8.4 - 10.1 mg/dL 08/28/2021 11:14 PM EDT Glucose Level 189(H) 74 - 106 mg/dL 08/28/2021 11:14 PM EDT Comment: [facility] has become aware of sulfasalazine and sulfapyridine [...] administration of the drug. Blood Urea Nitrogen 14 7 - 22 mg/dL 08/28/2021 11:14 PM EDT Creatinine Level 1.00 0.70 - 1.30 mg/dL 08/28/2021 11:14 PM EDT Bun/Creatinine 12.7 8.0 - 20.0 08/28/2021 11:14 PM EDT Albumin Level 3.5 3.4 - 5.0 Gram/dL 08/28/2021 11:14 PM EDT Protein, Total 6.9 6.4 - 8.2 Gram/dL 08/28/2021 11:14 PM EDT A/G Ratio 1.0(L) 1.1 - 2.5 08/28/2021 11:14 PM EDT Alk Phos 78 27 - 136 Units/Lit er 08/28/2021 11:14 PM EDT ALT 29 16 - 61 Units/Lit er 08/28/2021 11:14 PM EDT Comment: [facility] has become aware of sulfasalazine and sulfapyridine [...] prior to administration of the drug. AST 30 5 - 37 Units/Lit er 08/28/2021 11:14 PM EDT Comment: [facility] has become aware of sulfasalazine and sulfapyridine [...] to administration of the drug. Bilirubin, Total 0.4 0.2 - 1.2 mg/dL 08/28/2021 11:14 PM EDT Comment: Total bilirubin results may be falsely elevated in patients undergoing treatment with eltrombopag (Promacta). Results should be correlated to clinical symptomology and additional laboratory testing including other markers for liver function, e.g., alanine aminotransferase, aspartate aminotransferase, alkaline phosphatase, and/or lactate dehydrogenase. Globulin 3.4 1.5 - 4.5 Gram/dL 08/28/2021 11:14 PM EDT eGFR >60 >=60 mL/min/1. 73m2 08/28/2021 11:18 PM EDT Comment: GFR <60 suggests chronic kidney disease, if found over 3 month period. GFR <15 indicates renal failure. eGFR NonAfrican >60 >=60 mL/min/1. 73m2 08/28/2021 11:18 PM EDT Comment: GFR <60 suggests chronic kidney disease, if found over 3 month period. GFR <15 indicates renal failure. Blood 08/28/2021 6:29 PM EDT 08/28/2021 10:40 PM EDT [facility] Historical Provider LAB BLOOD ORDERABLES Fi nal Result [facility] ([place] [place] LABORATORY [address] [place] [address], [facility] [phone] * TROPONIN I ULTRA ([facility] BKR DATA CONV) (08/28/2021 6:29 PM EDT) Pathologist [facility] TroponinI Ultra <0.015 0.015 - 0.045 ng/mL 08/28/2021 11:14 PM EDT Comment: Troponin Result (ng/ml) ?* Interpretation 0.015 ? 0.045 ?* ??Normal; less than 99th percentile of normal range >0.045 ? * Abnormal; greater than 99th percentile of normal range. ?? Test precision at 0.045 ng/ml is less than 10% Coefficient of Variation. Biotin supplements can cause clinically significant incorrect lab results. The FDA has seen an increase in the number of adverse events related to biotin interference with lab tests. Blood 08/28/2021 6:29 PM EDT 08/28/2021 10:40 PM EDT [facility] Historical Provider LAB BLOOD ORDERABLES Fi nal Result [facility] ([place] [place]AT[facility] [address] [phone] * PROBNP ([facility] BKR DATA CONV (08/28/2021 6:29 PM EDT) Pathologist [facility] ProBNP 46 0 - 450 pg/mL 08/28/2021 11:14 PM EDT Blood 08/28/2021 6:29 PM EDT 08/28/2021 10:40 PM EDT [facility] Historical Provider LAB BLOOD ORDERABLES Fi nal Result Performing Organization Address City/[facility]/ZIP Co de Phone Number [facility] [place] [address] [phone] documented in this encounter Visit Diagnoses Not on filedocumented in this encounter
--- OUTSIDE RECORDS SUMMARY | 2024-09-30 17:10 | XMS_ITS | Encounter Summary ---
Author Organization [employer] Address [address] [facility] [place] [address] Care Team Providers Care Service Line Layer Name Role Phone Stacy Moise Primary Care Provider [phone] Encounter Details Date Type Department Care Team (Late st Contact Info) Description 08/28/2021 Transcribed Document [facility] [place] [address] ProviderMireya MD [address] [place] [id number] Social History Tobacco Use Types Packs/Day Years Used Date Smoking Tobacco: Never Assessed Sex and Gender Information Value Date Recorded Sex Assigned at Not on file Legal Sex Male 5:25 PM CDT Gender Identity Not on file Sexual Orientation Not on file documented as of this encounter Miscellaneous Notes * Cerner Conversion Note - Mireya Osuna MD - 08/28/2021 10:04 PM CDT [facility] [place] [address] [address] [facility] :1945 Visit Time:08/28/2021 Your Visit Summary Your Care Team Primary Provider: SON DUMONT PA-C Secondary Provider: Your Diagnosis Hypertension Hypertension Jaw pain Medical Information You may obtain a copy of your Emergency Department visit from Medical Records by calling the hospital phone number listed above and asking to be directed to the Medical Records Department. If you had special tests, such as EKG???s or X-rays, the interpretation of your tests given to you by the Emergency Department Physician is a preliminary report. Some fractures and illnesses fail to show up on preliminary tests. These will be reviewed again and we will call you if there are any new suggestions. If your symptoms continue notify your physician. After you leave, you should follow the instructions provided. What to do next Follow-Up Appointments Follow Up with MALGORZATA GUTIERREZ When Within 2 to 3 days Comments Monitor blood pressure and heart rate for you to review with your Doctors. Return to ER if symptoms worse or different. Where: [address] [id number] [place] ([place]) Follow Up with KOFI MCALLISTER When Within 2 to 3 days Where: [facility] [address] [place] ([place]) Allergies No Known Medication Allergies Immunizations This Visit No Immunizations Found Medications What How Much When Instructions Next Dose amLODIPine (Norvasc 10 mg oral tablet) 1 Tablet(s) Oral Every Day aspirin (Aspir 81) 81 Milligram(s) Oral Every Day atorvastatin (atorvastatin 40 mg oral tablet) 1 Tablet(s) Oral Every Day cetirizine (ZyrTEC) 10 Milligram(s) Oral Every Day as needed for as needed for allergy symptoms clopidogrel (Plavix 75 mg oral tablet) 1 Tablet(s) Oral Every Day cyanocobalamin (Vitamin B12) 1,000 Microgram(s) IntraMuscular Every Day cyanocobalamin (Vitamin B12) See instructions OTC B12 esomeprazole (NexIUM 24HR 20 mg oral delayed release capsule) Oral Every Day finasteride (Proscar) 5 Milligram(s) Oral Every Day furosemide (furosemide 20 mg oral tablet) 1 Tablet(s) Oral Every Day gemfibrozil (Lopid 600 mg oral tablet) 1 Tablet(s) Oral Two Times A Day hydrALAZINE (hydrALAZINE 25 mg oral tablet) 1 Tablet(s) Oral Two Times A Day isosorbide dinitrate 30 Milligram(s) Oral Every Day levothyroxine (levothyroxine 25 mcg (0.025 mg) oral tablet) 1 Tablet(s) Oral Every Day lisinopril 20 Milligram(s) Oral Every Day nebivolol (Bystolic 10 mg oral tablet) 1 Tablet(s) Oral Every Day nitroglycerin (Nitrostat 0.4 mg sublingual tablet) 1 Tablet(s) SubLINgual Every 5 minutes as needed for Chest Pain ocular lubricant (Systane) See instructions 1 drop each eye Eyes Both as needed for dry eye potassium chloride (potassium chloride 20 mEq oral tablet, extended release) Oral Two Times A Day psyllium (Konsyl) Oral Every Other Day SITagliptin (Januvia 100 mg oral tablet) 1 Tablet(s) Oral Every Day The home medications listed are only as accurate as the information you provided. Please continue taking all of your medications prescribed by your Primary Care Provider unless specifically told to change or discontinue the medication. Please direct any questions regarding your home medications to your Primary Care Provider. Take your medications faithfully. Do NOT skip [...] Please dispose of unused and medications per pharmacy guidance. Test Results Laboratory or Other Results This Visit (last charted value for your 08/28/2021 visit) Hematology 08/28/2021 6:29 PM WBC: 10.0 K/uL -- Normal range between ( 3.6 and 9.5 ) RBC: 4.60 Million/uL -- Normal range between ( 4.20 and 5.70 ) Hct: 38.8 % -- Normal range between ( 40.1 and 51.0 ) Hgb: 13.2 g/dL -- Normal range between ( 13.5 and 17.3 ) Platelet Count: 305 K/uL -- Normal range between ( 163 and 369 ) MCH: 28.7 pg -- Normal range between ( 25.6 and 32.2 ) MCHC: 34.0 Gram/dL -- Normal range between ( 32.2 and 36.5 ) MCV: 84.3 fL -- Normal range between ( 79.0 and 94.8 ) Slide Review: Technologist Eos %: 3.3 % -- Normal range between ( 0.0 and 7.0 ) [place] #: 1.28 K/uL -- Normal range between ( 0.16 and 1.00 ) Eos #: 0.33 x10(3)/uL -- Normal range between ( 0.00 and 0.80 ) [place] %: 12.8 % -- Normal range between ( 3.0 and 9.0 ) Baso %: 0.4 % -- Normal range between ( 0.0 and 1.5 ) RBC Morphology: Abnormal Baso #: 0.04 x10(3)/uL -- Normal range between ( 0.00 and 0.20 ) RDW: 20.9 % -- Normal range between ( 11.7 and 14.9 ) Neut %: 57.2 % -- Normal range between ( 34.0 and 71.0 ) Neut #: 5.71 K/uL -- Normal range between ( 1.56 and 6.13 ) Anisocytosis: 2+ Lymph %: 25.7 % -- Normal range between ( 19.3 and 53.1 ) Platelet Ct Estimate: Adequate Lymph #: 2.56 x10(3)/uL -- Normal range between ( 1.00 and 3.90 ) MPV: 9.7 fL -- Normal range between ( 9.4 and 12.4 ) IG#: 0.06 x10(3)/uL -- Normal range between ( 0.00 and 0.05 ) IG%: 0.60 % -- Normal range between ( 0.00 and 0.60 ) General Chemistry 08/28/2021 6:29 PM Creatinine Level: 1.00 mg/dL -- Normal range between ( 0.70 and 1.30 ) Sodium Level: 140 mmol/L -- Normal range between ( 136 and 146 ) Potassium Level: 4.5 mmol/L -- Normal range between ( 3.5 and 5.1 ) Chloride Level: 110 mmol/L -- Normal range between ( 102 and 112 ) Carbon Dioxide Level: 23 mmol/L -- Normal range between ( 21 and 32 ) Anion Gap: 12 -- Normal range between ( 9 and 20 ) Bilirubin Total: 0.4 mg/dL -- Normal range between ( 0.2 and 1.2 ) A/G Ratio: 1.0 -- Normal range between ( 1.1 and 2.5 ) ALT: 29 Units/Liter -- Normal range between ( 16 and 61 ) AST: 30 Units/Liter -- Normal range between ( 5 and 37 ) Globulin: 3.4 Gram/dL -- Normal range between ( 1.5 and 4.5 ) Alk Phos: 78 Units/Liter -- Normal range between ( 27 and 136 ) Bun/Creatinine: 12.7 -- Normal range between ( 8.0 and 20.0 ) Calcium Level: 8.9 mg/dL -- Normal range between ( 8.4 and 10.1 ) eGFR : >60 mL/min/1.73m2 eGFR NonAfrican: >60 mL/min/1.73m2 Glucose Level: 189 mg/dL -- Normal range between ( 74 and 106 ) Blood Urea Nitrogen: 14 mg/dL -- Normal range between ( 7 and 22 ) Protein Total: 6.9 Gram/dL -- Normal range between ( 6.4 and 8.2 ) Albumin Level: 3.5 Gram/dL -- Normal range between ( 3.4 and 5.0 ) Cardiac Specific Markers 08/28/2021 8:40 PM Troponin I Ultra: <0.015 ng/mL -- Normal range between ( 0.015 and 0.045 ) 08/28/2021 6:29 PM ProBNP: 46 pg/mL -- Normal range between ( 0 and 450 ) Computed Tomography 08/28/2021 7:[address] Head WO: CT Head WO Education [employer] Trigeminal Neuralgia Trigeminal neuralgia is a nerve disorder that causes severe pain on one side of the face. The pain may last from a few seconds to several minutes. The pain is usually only on one side of the face. Symptoms may occur for days, weeks, or months and then go away for months or years. The pain may return and be worse than before. What are the causes? This condition is caused by damage or pressure to a nerve in the head that is called the trigeminal nerve. An attack can be triggered by: ??? Talking. ??? Chewing. ??? Putting on makeup. ??? Washing your face. ??? Shaving your face. ??? Brushing your teeth. ??? Touching your face. What increases the risk? You are more likely to develop this condition if you: ??? Are 50 years of age or older. ??? Are female. What are the signs or symptoms? The main symptom of this condition is severe pain in the: ??? Jaw. ??? Lips. ??? Eyes. ??? Nose. ??? Scalp. ??? Forehead. ??? Face. The pain may be: ??? Intense. ??? Stabbing. ??? Electric. ??? Shock-like. How is this diagnosed? This condition is diagnosed with a physical exam. A CT scan or an MRI may be done to rule out other conditions that can cause facial pain. How is this treated? This condition may be treated with: ??? Avoiding the things that trigger your symptoms. ??? Taking prescription medicines (anticonvulsants). ??? Having surgery. This may be done in severe cases if other medical treatment does not provide relief. ??? Having procedures such as ablation, thermal, or radiation therapy. It may take up to one month for treatment to start relieving the pain. Follow these instructions at home: Managing pain ??? Learn as much as you can about how to manage your pain. Ask your health care provider if a pain specialist would be helpful. ??? Consider talking with a mental health care provider (psychologist) about how to cope with the pain. ??? Consider joining a pain support group. General instructions ??? Take dwzj-gth-metoiqi and prescription medicines only as told by your health care provider. ??? Avoid the things that trigger your symptoms. It may help to: ? Chew on the unaffected side of your mouth. ? Avoid touching your face. ? Avoid blasts of hot or cold air. ??? Follow your treatment plan as told by your health care provider. This may include: ? Cognitive or behavioral therapy. ? Gentle, regular exercise. ? Meditation or yoga. ? Aromatherapy. ??? Keep all follow-up visits as told by your health care provider. You may need to be monitored closely to make sure treatment is working well for you. Where to find more information ??? Facial Pain Association: fpa-support.org Contact a health care provider if: ??? Your medicine is not helping your symptoms. ??? You have side effects from the medicine used for treatment. ??? You develop new, unexplained symptoms, such as: ? Double vision. ? Facial weakness. ? Facial numbness. ? Changes in hearing or balance. ??? You feel depressed. Get help right away if: ??? Your pain is severe and is not getting better. ??? You develop suicidal thoughts. If you ever feel like you may hurt yourself or others, or have thoughts about taking your own life, get help right away. You can go to your nearest emergency department or call: ??? Your local emergency services (911 in the [place] ??? A suicide crisis helpline, such as the National Suicide Prevention Lifeline at . This is open 24 hours a day. Summary ??? Trigeminal neuralgia is a nerve disorder that causes severe pain on one side of the face. The pain may last from a few seconds to several minutes. ??? This condition is caused by damage or pressure to a nerve in the head that is called the trigeminal nerve. ??? Treatment may include avoiding the things that trigger your symptoms, taking medicines, or having surgery or procedures. It may take up to one month for treatment to start relieving the pain. ??? Avoid the things that trigger your symptoms. ??? Keep all follow-up visits as told by your health care provider. You may need to be monitored closely to make sure treatment is working well for you. This information is not intended to replace advice given to you by your health care provider. Make sure you discuss any questions you have with your health care provider. Document Revised: 09/05/2019 Document Reviewed: 09/05/2019 [employer] Patient Education ?? 2020 [employer] Hypertension, Adult High blood pressure (hypertension) is when the force of blood pumping through the arteries is too strong. The arteries are the blood vessels that carry blood from the heart throughout the body. Hypertension forces the heart to work harder to pump blood and may cause arteries to become narrow or stiff. Untreated or uncontrolled hypertension can cause a heart attack, heart failure, a stroke, kidney disease, and other problems. A blood pressure reading consists of a higher number over a lower number. Ideally, your blood pressure should be below 120/80. The first ( top ) number is called the systolic pressure. It is a measure of the pressure in your arteries as your heart beats. The second ( bottom ) number is called the diastolic pressure. It is a measure of the pressure in your arteries as the heart relaxes. What are the causes? The exact cause of this condition is not known. There are some conditions that result in or are related to high blood pressure. What increases the risk? Some risk factors for high blood pressure are under your control. The following factors may make you more likely to develop this condition: ??? Smoking. ??? Having type 2 diabetes mellitus, high cholesterol, or both. ??? Not getting enough exercise or physical activity. ??? Being overweight. ??? Having too much fat, sugar, calories, or salt (sodium) in your diet. ??? Drinking too much alcohol. Some risk factors for high blood pressure may be difficult or impossible to change. Some of these factors include: ??? Having chronic kidney disease. ??? Having a family history of high blood pressure. ??? Age. Risk increases with age. ??? Race. You may be at higher risk if you are . ??? Gender. Men are at higher risk than women before age 45. After age 65, women are at higher risk than men. ??? Having obstructive sleep apnea. ??? Stress. What are the signs or symptoms? High blood pressure may not cause symptoms. Very high blood pressure (hypertensive crisis) may cause: ??? Headache. ??? Anxiety. ??? Shortness of breath. ??? Nosebleed. ??? Nausea and vomiting. ??? Vision changes. ??? Severe chest pain. ??? Seizures. How is this diagnosed? This condition is diagnosed by measuring your blood pressure while you are seated, with your arm resting on a flat surface, your legs uncrossed, and your feet flat on the floor. The cuff of the blood pressure monitor will be placed directly against the skin of your upper arm at the level of your heart. It should be measured at least twice using the same arm. Certain conditions can cause a difference in blood pressure between your right and left arms. Certain factors can cause blood pressure readings to be lower or higher than normal for a short period of time: ??? When your blood pressure is higher when you are in a health care provider's office than when you are at home, this is called white coat hypertension. Most people with this condition do not need medicines. ??? When your blood pressure is higher at home than when you are in a health care provider's office, this is called masked hypertension. Most people with this condition may need medicines to control blood pressure. If you have a high blood pressure reading during one visit or you have normal blood pressure with other risk factors, you may be asked to: ??? Return on a different day to have your blood pressure checked again. ??? Monitor your blood pressure at home for 1 week or longer. If you are diagnosed with hypertension, you may have other blood or imaging tests to help your health care provider understand your overall risk for other conditions. How is this treated? This condition is treated by making healthy lifestyle changes, such as eating healthy foods, exercising more, and reducing your alcohol intake. Your health care provider may prescribe medicine if lifestyle changes are not enough to get your blood pressure under control, and if: ??? Your systolic blood pressure is above 130. ??? Your diastolic blood pressure is above 80. Your personal target blood pressure may vary depending on your medical conditions, your age, and other factors. Follow these instructions at home: Eating and drinking ??? Eat a diet that is high in fiber and potassium, and low in sodium, added sugar, and fat. An example eating plan is called the DASH (Dietary Approaches to Stop Hypertension) diet. To eat this way: ? Eat plenty of fresh fruits and vegetables. Try to fill one half of your plate at each meal with fruits and vegetables. ? Eat whole grains, such as whole-wheat pasta, brown rice, or whole-grain bread. Fill about one fourth of your plate with whole grains. ? Eat or drink low-fat dairy products, such as skim milk or low-fat yogurt. ? Avoid fatty cuts of meat, processed or cured meats, and poultry with skin. Fill about one fourth of your plate with lean proteins, such as fish, chicken without skin, beans, eggs, or tofu. ? Avoid pre-made and processed foods. These tend to be higher in sodium, added sugar, and fat. ??? Reduce your daily sodium intake. Most people with hypertension should eat less than 1,500 mg of sodium a day. ??? Do not drink alcohol if: ? Your health care provider tells you not to drink. ? You are , may be , or are planning to become . ??? If you drink alcohol: ? Limit how much you use to: ? 0???1 drink a day for women. ? 0???2 drinks a day for men. ? Be aware of how much alcohol is in your drink. In the [place] one drink equals one 12 oz bottle of beer (355 mL), one 5 oz glass of wine (148 mL), or one 1?? oz glass of hard liquor (44 mL). Lifestyle ??? Work with your health care provider to maintain a healthy body weight or to lose weight. Ask what an ideal weight is for you. ??? Get at least 30 minutes of exercise most days of the week. Activities may include walking, swimming, or biking. ??? Include exercise to strengthen your muscles (resistance exercise), such as Pilates or lifting weights, as part of your weekly exercise routine. Try to do these types of exercises for 30 minutes at least 3 days a week. ??? Do not use any products that contain nicotine or tobacco, such as cigarettes, e-cigarettes, and chewing tobacco. If you need help quitting, ask your health care provider. ??? Monitor your blood pressure at home as told by your health care provider. ??? Keep all follow-up visits as told by your health care provider. This is important. Medicines ??? Take irqe-pdx-qewgzhx and prescription medicines only as told by your health care provider. Follow directions carefully. Blood pressure medicines must be taken as prescribed. ??? Do not skip doses of blood pressure medicine. Doing this puts you at risk for problems and can make the medicine less effective. ??? Ask your health care provider about side effects or reactions to medicines that you should watch for. Contact a health care provider if you: ??? Think you are having a reaction to a medicine you are taking. ??? Have headaches that keep coming back (recurring). ??? Feel dizzy. ??? Have swelling in your ankles. ??? Have trouble with your vision. Get help right away if you: ??? Develop a severe headache or confusion. ??? Have unusual weakness or numbness. ??? Feel faint. ??? Have severe pain in your chest or abdomen. ??? Vomit repeatedly. ??? Have trouble breathing. Summary ??? Hypertension is when the force of blood pumping through your arteries is too strong. If this condition is not controlled, it may put you at risk for serious complications. ??? Your personal target blood pressure may vary depending on your medical conditions, your age, and other factors. For most people, a normal blood pressure is less than 120/80. ??? Hypertension is treated with lifestyle changes, medicines, or a combination of both. Lifestyle changes include losing weight, eating a healthy, low-sodium diet, exercising more, and limiting alcohol. This information is not intended to replace advice given to you by your health care provider. Make sure you discuss any questions you have with your health care provider. Document Revised: 06/29/2019 Document Reviewed: 06/29/2019 [employer] Patient Education ?? 2020 Your Last Chance. Emergency Awareness and Preventative Care STROKE is [...] Assistance with quitting is available by contacting 5-959-OECD-NOW. This is a free resource providing counseling, [...] and how to prevent infections, visit www.cdc.gov/sepsis. The examination and treatment you have received in the Emergency Department has been done to provide an appropriate evaluation and stabilizing treatment on an emergency basis only. Given the limited resources, it is not meant to be a substitute for complete medical care. The follow-up doctor you named will receive a copy of your records and all test reports. IT IS IMPORTANT THAT YOU SCHEDULE A FOLLOW-UP APPOINTMENT AND ARE RE-EVALUATED. You should report any new complaints, symptoms, or remaining problems at that time. IT IS IMPOSSIBLE FOR THE EMERGENCY DEPARTMENT TO RECOGNIZE AND TREAT ALL ELEMENTS OF INJURY OR ILLNESS IN A SINGLE VISIT. If you have been referred to a specialist physician, it means that we believe you may have a condition that requires the expertise of a specialist. These physicians work in partnership with the hospital and have agreed to see referred patients in their office for further evaluation. KEEP IN MIND THAT THE SPECIALIST HAS HIS/HER OWN OFFICE POLICIES WHICH MAY REQUIRE PROPER INSURANCE OR PAYMENT UP FRONT BEFORE THE SPECIALIST WILL SEE YOU. It is your responsibility to call the specialist physician to make an appointment. We do not have the ability to refer patients to specialists/physicians that work with specific insurance companies. Please be advised that all financial charges or billing practices are determined by that practice, not the hospital. If your insurance company requires that you see a specialist from their approved list, it is your responsibility to contact your insurance company to make those arrangements. It is also your responsibility to follow any other requirements of your insurance company necessary to obtain coverage for claims submitted. We will bill your insurance; however, you are responsible today for any co-pay amounts. You will receive a separate bill for any services you may have received including: emergency, radiology, or pathology physicians. Patient Name:SCOTTIE CURRAN I have received this information and was given the opportunity to ask questions. Patient/Spray Blender Name: Patient/Spray Blender Signature: Relationship to Patient: Clinician/Hospital Spray Blender Signature: Please Provide a Telephone Number Where You Can Be Reached: Is it Permissible To Leave a Message? Date: documented in this encounter Plan of Treatment Upcoming Encounters Date Type Department Care Team (Late st Contact Info) Description 03/10/2025 1:15 PM EDT Office Visit [facility] [place] [address] [place] [address] Kofi Mcallister PA-Yuliana [address] [facility] [address] [facility] [place] [address] documented as of this encounter Visit Diagnoses Not on filedocumented in this encounter Care Teams Service Line Layer Relationship Specialty Start Date End Date Stacy Moise PA PCP - General 03/02/23 documented as of this encounter
--- OUTSIDE RECORDS SUMMARY | 2024-09-30 17:10 | XMS_ITS | Encounter Summary ---
Author Organization [email or web address] Address [address] [place] [id number] Care Team Providers Care Lawn Specialist Name Role Phone Sudhir Payton Primary Care Provider [phone] Encounter Details Date Type Department Care Team (Late st Contact Info) Description 05/05/[address] [facility] [place] [facility] [place] [address] ProviderMireya MD [address] [place] [address] [id number] Social History Tobacco Use Types Packs/Day Years Used Date Smoking Tobacco: Never Assessed Sex and Gender Information Value Date Recorded Sex Assigned at Not on file Legal Sex Male 5:25 PM CDT Gender Identity Not on file Sexual Orientation Not on file documented as of this encounter Miscellaneous Notes * Cerner Conversion Note - Mireya ProviderMD - 05/05/2021 2:09 PM CDT Patient: SCOTTIE CURRAN Age: 75 years Sex: Male : 1945 Associated Diagnoses: Headache Author: MARTINA FULLER PA-C Basic Information Time seen: Date & time 05/05/2021 12:45:00. History source: Patient. Arrival mode: Private vehicle. History limitation: None. Additional information: Chief Complaint from Nursing Triage Note : Chief Complaint 05/05/2021 12:41 EDT Chief Complaint headache radiating under left eye at times. denies any other symptoms. similiar symptoms last year and diagnosed with TIA. . History of Present Illness The patient presents with headache. The onset was 3 days ago. The course/duration of symptoms is fluctuating in intensity. Location: Bilateral frontal L>R, radiates to L sabianist . The character of symptoms is pressure and throbbing. The degree at onset was moderate. The degree at maximum was. The degree at present is severe. The exacerbating factor is none. There are relieving factors including medications(s) and tylenol and motrin . Prior episodes: occasional. Preceding symptoms: denies visual disturbance, denies typical aura and denies scotoma. Associated symptoms: denies nausea, denies vomiting, denies dizziness, denies altered vision, denies photophobia, denies fever, denies chills, denies neck pain, denies syncope, denies rash, denies altered speech, denies altered level of consciousness and denies seizure. Review of Systems Constitutional symptoms: Negative except as documented in HPI. Skin symptoms: Negative except as documented in HPI. Eye symptoms: Negative except as documented in HPI. ENMT symptoms: Negative except as documented in HPI. Respiratory symptoms: Negative except as documented in HPI. Cardiovascular symptoms: Negative except as documented in HPI. Gastrointestinal symptoms: Negative except as documented in HPI. Genitourinary symptoms: Negative except as documented in HPI. Musculoskeletal symptoms: Negative except as documented in HPI. Neurologic symptoms: Negative except as documented in HPI. Health Status Allergies: Allergic Reactions (Selected) No [...] tablet, extended release: Tab, Oral, BID, 0 Refill(s). Past Medical/ Family/ Social History Surgical history: heart cath in 2017 at 72 Years. cardiac stents. left lower extremity vascular stent x2. hand surgery. S/P cholecystectomy ([id number]). colon resection. Cataract surgery ([id number]). Colonoscopy ([id number]). renal stent///2018. right leg balloon. back fusion lumbar 5 S1 2-2019. neck surgery.. Family history: No family history items have been selected or recorded.. Social history: Social & Psychosocial Habits Alcohol 11/18/2016 Alcohol Use History, Social Habits Yes Alcohol Use Frequency Rarely 01/28/2021 Alcohol Use History, Social Habits No Alcohol Use Frequency Socially Home/Environment 07/21/2014 Lives with: Spouse Living situation: Home/Independent Substance Abuse 12/23/2018 Recreational Drug Use History No Recreational Drug Use Last 12 Months No Tobacco 11/18/2016 Smoking Status Current every day smoker Years of Tobacco Use 55 Packs/Tins Daily 1 03/11/2020 Smoking Status 10 or more cigarettes (/ Comment: Pt states he smokes 12 cigarettes per day - 03/11/2020 00:13 - JOHNSON JACKMAN RN 01/28/2021 Smoking Status 10 or more cigarettes (1/ Smokeless Tobacco Status Never Years of Tobacco Use 55 Month Tobacco Last Used TODAY . Problem list: Active Problems (26) Acquired hypothyroidism [...] disease Prostatitis///12/2018 Renal calculus///HX Stented coronary artery . Physical Examination Vital Signs Vital Signs/Vital Measures 05/05/2021 12:46 EDT Systolic Blood Pressure 165 mmHg HI Diastolic Blood Pressure 71 mmHg Temperature Source Oral Temperature Mode Fahrenheit Temperature, Fahrenheit 97.8 Deg F Clinical Temperature, C 36.6 Deg C Peripheral Pulse Rate 63 bpm Respiratory Rate 18 Breaths/Min Oxygen Saturation 97 % Oxygen Therapy Mode Room air 05/05/2021 12:41 EDT Temperature Source Oral Temperature Mode Fahrenheit . Measurements 05/05/2021 12:41 EDT Height Source Stated Height Entry Format [place] Height/Length, SWEDISH (ft) 5 ft Height/Length SWEDISH 9 Inch CLINICALHEIGHT 175.26 cm [place] Body Weight 69.73 kg Weight Source, ED Critical estimated dosing weight Weight Entry Format [place] Weight Belgian lb 170 lb CLINICALWEIGHT 77.27 kg Body Surface Area (BSA) 1.93 m2 Body Mass Index 25.2 kg/m2 HI . Oxygen Saturation 05/05/2021 12:46 EDT Oxygen Saturation 97 % . General: Alert, no acute distress. Skin: Warm, dry. Head: Normocephalic, atraumatic. Eye: Pupils are equal, round and reactive to light, extraocular movements are intact, vision grossly normal. Ears, nose, mouth and throat: Oral mucosa moist. Respiratory: Respirations are non-labored. Gastrointestinal: Soft, Nontender, Non distended. Neurological: Alert and oriented to person, place, time, and situation, No focal neurological deficit observed, normal sensory observed, normal motor observed, normal tandem gait observed , Cranial nerves II - XII: no facial droop, Coordination: Finger(s) to nose normal, heel(s) of foot to opposite goodson normal, Speech: Normal. Psychiatric: Cooperative, appropriate mood & affect. Medical Decision Making Differential Diagnosis: Migraine, tension headache, subarachnoid hemorrhage, hypertension, intracranial hemorrhage. Documents reviewed: Emergency department nurses' notes. Results review: Lab results : Lab Results 05/05/2021 13:55 EDT WBC 10.6 K/uL HI RBC 4.14 Million/uL LOW Hgb 9.6 g/dL LOW Hct 31.6 % LOW MCV 76.3 fL LOW MCH 23.2 pg LOW MCHC 30.4 Gram/dL LOW Platelet Count 442 K/uL HI MPV 9.4 fL RDW 14.9 % Neut % 60.2 % Neut # 6.37 K/uL HI Lymph % 22.9 % Lymph # 2.42 x10(3)/uL Garrett % 12.5 % HI Garrett # 1.32 K/uL HI Eos % 3.3 % Eos # 0.35 x10(3)/uL Baso % 0.5 % Baso # 0.05 x10(3)/uL Slide Review No IG# 0.06 x10(3)/uL HI IG% 0.60 % 05/05/2021 13:30 EDT Sodium Level 139 mmol/L Potassium Level 3.9 mmol/L Chloride Level 109 mmol/L Carbon Dioxide Level 24 mmol/L Anion Gap 10 Glucose Level 123 mg/dL HI Blood Urea Nitrogen 18 mg/dL Creatinine Level 1.20 mg/dL eGFR >60 mL/min/1.73m2 eGFR NonAfrican 59 mL/min/1.73m2 LOW Bun/Creatinine 15.0 Calcium Level 8.7 mg/dL . Radiology results: Radiology Results (Last 48 hours) [id number] -- 05/05/2021 12:36 CT Head WO (05/05/2021 13:20) Result: HEAD CT 05/05/2021 12:53 PM HISTORY: Headache.COMPARISON: November 2020TECHNIQUE: Multiple axial CT images were performed from the foramenmagnum to the vertex. This study was performed with techniques to keepradiation doses as low as reasonably achievable, (ALARA). Individualizeddose reduction techniques using automated exposure control or adjustmentof mA and/or kV according to the patient size were employed.FINDINGS: The ventricles are normal in size. There is no evidence ofhemorrhage. No masses are identified. No extra-axial fluid is seen. Thesinuses are normal. IMPRESSION: No acute intracranial process. Images reviewed, interpreted, and dictated by Abhijit Brandon MD . Reexamination/ Reevaluation Time: 05/05/2021 14:12:00 . Notes: Patient reports headache is completely resolved, feeling much better.. Impression and Plan Diagnosis Headache - Discharge, Emergency medicine, Medical Plan Condition: Stable. Disposition: Discharged Admit/Transfer/Discharge: Discharge (Order): Start: 05/05/2021 14:19 EDT, Discharge to: Home. Patient was given the following educational materials: Migraine Headache, Kidh-zz-[id number]. Follow up with: SUDHIR PAYTON Within 2 to 3 days; MALGORZATA GUTIERREZ Within 2 to 3 days Follow-up with your neurologist for reevaluation and management of your recurrent headaches. Return to ED if symptoms worsen., MALGORZATA GUTIERREZ Within 2 to 3 days Follow-up with your neurologist for reevaluation and management of your recurrent headaches. Return to ED if symptoms worsen.; SUDHIR PAYTON Within 2 to 3 days. Counseled: Patient, Regarding diagnosis, Regarding diagnostic results, Regarding treatment plan, Patient indicated understanding of instructions. Notes: I certify that the Physician Screen Cutter And Trimmer performed the services as delegated. I agree with the assessment, treatment plan and disposition of the patient as recorded by the Physician Screen Cutter And Trimmer. This document was created with [employer] dictation software and unidentified drop wire operator errors may be present.. . documented in this encounter Plan of Treatment Upcoming Encounters Date Type Department Care Team (Late st Contact Info) Description 03/10/2025 1:15 PM EDT Office Visit [facility] Cardiology - [place] [address] [place] [address] Tabby Mcallister PA-C [address] [facility] [address] [place] [address] documented as of this encounter Visit Diagnoses Not on filedocumented in this encounter Care Teams Lawn Specialist Relationship Specialty Start Date End Date Sudhir Payton PA PCP - General 03/02/23 documented as of this encounter
--- OUTSIDE RECORDS SUMMARY | 2024-09-30 17:10 | XMS_ITS | Encounter Summary ---
Author Organization [employer] Address [address] [facility] [facility] [place] [address] Care Team Providers Care Wire Fence Erector Name Role Phone Stacy Moise Primary Care Provider [phone] Encounter Details Date Type Department Care Team (Late st Contact Info) Description 05/05/2021 Transcribed Document [facility] [place] [facility] [place] [address] ProviderMireya MD [address] [place] [address] [id number] Social History Tobacco Use Types Packs/Day Years Used Date Smoking Tobacco: Never Assessed Sex and Gender Information Value Date Recorded Sex Assigned at Not on file Legal Sex Male 5:25 PM CDT Gender Identity Not on file Sexual Orientation Not on file documented as of this encounter Miscellaneous Notes * Cerner Conversion Note - Mireya ProviderMD - 05/05/2021 2:27 PM CDT ED Discharge Entered On: 05/05/2021 14:27 EDT Performed On: 05/05/2021 14:27 EDT by MALINA MANDUJANO RN Discharge Process Personal Belongings With Patient : Yes Patient Education Completed : Yes Teaching Evaluation : Verbalizes understanding IV Discontinued : Yes Nursing Documentation Completed : Yes MALINA MANDUJANO RN - 05/05/2021 14:27 EDT ED Discharge Discharge To : Home with ambulatory/outpatient follow-up Mode Of Departure : Ambulatory MALINA MANDUJANO RN - 05/05/2021 14:27 EDT documented in this encounter Plan of Treatment Upcoming Encounters Date Type Department Care Team (Late st Contact Info) Description 03/10/2025 1:15 PM EDT Office Visit [facility] Cardiology - [place] [address] [place] [address] Tabby Mcallister PA-Yuliana [address] [facility] [address] [place] [address] documented as of this encounter Visit Diagnoses Not on filedocumented in this encounter Care Teams Wire Fence Erector Relationship Specialty Start Date End Date Stacy Moise PA PCP - General 03/02/23 documented as of this encounter
--- OUTSIDE RECORDS SUMMARY | 2024-09-30 17:10 | XMS_ITS | Encounter Summary ---
Author Organization [facility] [employer] Address [address] [place] [address] Care Team Providers Care Professor Of Sport Management Name Role Phone Stacy Moise Primary Care Provider [phone] Encounter Details Date Type Department Care Team (Late st Contact Info) Description 08/28/2021 Transcribed Document [facility] [place] Family Medicine [facility] [place] [address] ProviderMireya MD [address] [place] [address] [phone] Social History Tobacco Use Types Packs/Day Years Used Date Smoking Tobacco: Never Assessed Sex and Gender Information Value Date Recorded Sex Assigned at Not on file Legal Sex Male 5:25 PM CDT Gender Identity Not on file Sexual Orientation Not on file documented as of this encounter Miscellaneous Notes * Cerner Conversion Note - Mireya ProviderMD - 08/28/2021 5:21 PM CDT Broset Violence Assessment Entered On: 08/28/2021 18:57 EDT Performed On: 08/28/2021 18:56 EDT by Shelby Sánchez RN-PATIENT CARE BEDSIDE NON-EXEMPT Broset Violence Assessment Broset Violence Checklist of Symptoms : None Broset Violence Symptoms Subtotal : 0 Broset Violence Symptoms Indicator : Low risk (0) Broset Interventions : [place] precautions for safety used Shelby Sánchez RN-PATIENT CARE BEDSIDE NON-EXEMPT - 08/28/2021 18:56 EDT documented in this encounter Plan of Treatment Upcoming Encounters Date Type Department Care Team (Late st Contact Info) Description 03/10/2025 1:15 PM EDT Office Visit [facility] Cardiology - [place] [address] [place] [address] Tabby Mcallister PA-Yuliana [address] [facility] [address] [place] [address] documented as of this encounter Visit Diagnoses Not on filedocumented in this encounter Care Teams Professor Of Sport Management Relationship Specialty Start Date End Date Stacy Moise PA PCP - General 03/02/23 documented as of this encounter
--- OUTSIDE RECORDS SUMMARY | 2024-09-30 17:10 | XMS_ITS | Encounter Summary ---
Author Organization [email or web address] Address [address] [facility] [place] [address] Care Team Providers Care Manager General Name Role Phone Stacy Moise Primary Care Provider [phone] Encounter Details Date Type Department Care Team (Late st Contact Info) Description 08/28/2021 Transcribed Document [facility] [place] [facility] [place] [address] ProviderMireya MD [address] [place] [address] [phone] Social History Tobacco Use Types Packs/Day Years Used Date Smoking Tobacco: Never Assessed Sex and Gender Information Value Date Recorded Sex Assigned at Not on file Legal Sex Male 5:25 PM CDT Gender Identity Not on file Sexual Orientation Not on file documented as of this encounter Miscellaneous Notes * Cerner Conversion Note - Mireya ProviderMD - 08/28/2021 5:21 PM CDT [place] Suicide Severity Rating Scale (C-SSRS) Entered On: 08/28/2021 18:57 EDT Performed On: 08/28/2021 18:56 EDT by Shelby Sánchez RN-PATIENT CARE BEDSIDE NON-EXEMPT [place] Suicide Severity Rating Scale (C-SSRS) CSSRS Past Month Wish to be : No CSSRS Past Month Suicidal Thoughts : No CSSRS Lifetime Suicide Behavior : No Suicide Severity Rating Score : 0 Suicide Severity Rating : No Additional Care Required at this time Shelby Sánchez RN-PATIENT CARE BEDSIDE NON-EXEMPT - 08/28/2021 18:56 EDT documented in this encounter Plan of Treatment Upcoming Encounters Date Type Department Care Team (Late st Contact Info) Description 03/10/2025 1:15 PM EDT Office Visit [facility] Cardiology - [place] [address] [place] [address] Tabby Mcallister PA-Yuliana 227 [facility] [address] [place] [address] documented as of this encounter Visit Diagnoses Not on filedocumented in this encounter Care Teams Manager General Relationship Specialty Start Date End Date Stacy Moise PA PCP - General 03/02/23 documented as of this encounter
--- OUTSIDE RECORDS SUMMARY | 2024-09-30 17:10 | XMS_ITS | Encounter Summary ---
Author Organization [employer] Address [address] [place] [address] Care Team Providers Care Bed Laborer Name Role Phone Stacy Moise Primary Care Provider [phone] Encounter Details Date Type Department Care Team (Late st Contact Info) Description 11/26/2021 Transcribed Document [facility] [place] [address] ProviderMireya MD [address] [place] [address] [id number] Social History Tobacco Use Types Packs/Day Years Used Date Smoking Tobacco: Never Assessed Sex and Gender Information Value Date Recorded Sex Assigned at Not on file Legal Sex Male 5:25 PM CDT Gender Identity Not on file Sexual Orientation Not on file documented as of this encounter Miscellaneous Notes * Cerner Conversion Note - Mireya ProviderMD - 11/26/2021 11:29 AM DEHAIRING MACHINE TENDER Broset Violence Assessment Entered On: 11/26/2021 11:51 EST Performed On: 11/26/2021 11:51 EST by Funmilayo Alfonso RN-PATIENT CARE BEDSIDE NON-EXEMPT Broset Violence Assessment Broset Violence Checklist of Symptoms : None Broset Violence Symptoms Subtotal : 0 Broset Violence Symptoms Indicator : Low risk (0) Funmilayo Alfonso RN-PATIENT CARE BEDSIDE NON-EXEMPT - 11/26/2021 11:51 EST Electronically signed by [facility] Conversion Demand Generator Manager Cerner at 02/16/2023 4:01 PM CDT documented in this encounter Plan of Treatment Upcoming Encounters Date Type Department Care Team (Late st Contact Info) Description 03/10/2025 1:15 PM EDT Office Visit [facility] Cardiology - [place] [address] [place] [address] Tabby Mcallister PA-C [address] [facility] [address] [place] [address] documented as of this encounter Visit Diagnoses Not on filedocumented in this encounter Care Teams Bed Laborer Relationship Specialty Start Date End Date Stacy Moise PA PCP - General 03/02/23 documented as of this encounter
--- OUTSIDE RECORDS SUMMARY | 2024-09-30 17:10 | XMS_ITS | Encounter Summary ---
Author Organization [employer] Address [address] [facility] [place] [address] Care Team Providers Care Supervisor Graphite Name Role Phone Stacy Moise Primary Care Provider [phone] Encounter Details Date Type Department Care Team (Late st Contact Info) Description 08/28/2021 Transcribed Document [facility] Family Medicine [facility] [place] [address] ProviderMireya MD [address] [place] [id number] Social History Tobacco Use Types Packs/Day Years Used Date Smoking Tobacco: Never Assessed Sex and Gender Information Value Date Recorded Sex Assigned at Not on file Legal Sex Male 5:25 PM CDT Gender Identity Not on file Sexual Orientation Not on file documented as of this encounter Miscellaneous Notes * Cerner Conversion Note - Mireya Osuna MD - 08/28/2021 5:21 PM CDT ED Triage Entered On: 08/28/2021 18:10 EDT Performed On: 08/28/2021 18:03 EDT by MALINA MANDUJANO, POLICY LOAN CALCULATOR Triage Across the Room Chief Complaint : Pt presents with hypertension x 1 week. BP upon triage 196/82. Hx of hypertension. Takes Isosorbide BID and Bystolic. Repots throbbing on the left side of his jaw. Denies chest pain/SOB. Hx of cardiac stents. TIA 1 year ago. Takes Plavix daily. Triage Date/Time : 08/28/2021 18:03 EDT MALINA MANDUJANO RN - 08/28/2021 18:03 EDT DCP GENERIC CODE Tracking Acuity : 2 - Emergent Tracking Group : [facility] MALINA MANDUJANO RN - 08/28/2021 18:03 EDT Mode of Arrival : Ambulatory Transported to ED by : Walk in To Room Via : Ambulate Accompanied By : Unaccompanied ED Vital Signs : Document Height & Weight : Document ED Allergies : Document ED Reason for Visit : Document Tetanus Immunization : Unknown MALINA MANDUJANO RN - 08/28/2021 18:03 EDT Infectious Disease History Does patient have symptoms of COVID-19? : No Has the Patient Been Tested for COVID-19 in the last 14 days? : No, Patient stated Does the Patient state known exposure to a COVID-19 positive case in the last 14 days? : No Patient Vaccinated for COVID-19 : Fully vaccinated MALINA MANDUJANO RN - 08/28/2021 18:03 EDT Infectious Disease Risk Screening Grid Cough < 2 wks of unknown origin : NO Cough > 2 weeks : NO Blood in Sputum : NO Fever or self-reported Fever : NO Rash of unknown origin : NO Headache : NO Stiff neck : NO Night Sweats : NO Unexplained Weight Loss : NO Diarrhea (3 episode per day) : NO MALINA MANDUJANO RN - 08/28/2021 18:03 EDT Physical contact outside [place] in the last 30 days : No Hospitalized in Foreign Country : No Infectious Disease History : Chicken pox/Shingles, Measles, Mumps, Pertussis (Whooping cough) INF Disease TB Screening Calc : 0 INF Disease Recent Travel Calc : 0 MALINA MANDUJANO RN - 08/28/2021 18:03 EDT Vital Signs ED Temperature Source : Oral Temperature Mode : Fahrenheit Temperature, Fahrenheit : 98.2 Deg F Clinical Temperature, C : 36.8 Deg C Oxygen Therapy Mode : Room air Peripheral Pulse Rate : 62 bpm Respiratory Rate : 18 Breaths/Min Systolic Blood Pressure : 196 mmHg (HI) Diastolic Blood Pressure : 82 mmHg Oxygen Saturation : 98 % MALINA MANDUJANO RN - 08/28/2021 18:03 EDT Allergy (As Of: 08/28/2021 18:10:34 EDT) Allergies (Active) No Known Medication Allergies Estimated Onset Date: Unspecified ; Created By: SHEILA MARTINEZ RN; Reaction Status: Active ; Category: Drug ; Substance: No Known Medication Allergies ; Type: Allergy ; Updated By: SHEILA MARTINEZ RN; Reviewed Date: 05/05/2021 14:09 EDT Diagnosis Control ED (As Of: 08/28/2021 18:10:34 EDT) Problems(Active) Acquired hypothyroidism (SNOMED CT :620231428 ) Name of Problem: Acquired hypothyroidism ; Recorder: Lorena Brannon, MIKE; Confirmation: Confirmed ; Classification: Patient Stated ; Code: [id number] ; Contributor System: PowerChart ; Last Updated: 01/28/2021 9:20 EDT ; Life Cycle Date: 01/28/2021 ; Life Cycle Status: Active ; Vocabulary: SNOMED CT Anemia (hx of) (SNOMED CT :753930286 ) Name of Problem: Anemia (hx of) ; Recorder: QUOC HALL RN; Confirmation: Confirmed ; Classification: Medical ; Code: 639328375 ; Contributor System: PowerChart ; Last Updated: 01/13/2020 11:12 EDT ; Life Cycle Date: 01/13/2020 ; Life Cycle Status: Active ; Vocabulary: SNOMED CT Angina (hx of, Last had in 2016) (SNOMED CT :787050302 ) Name of Problem: Angina (hx of, Last had in 2016) ; Recorder: RENETTA TRAYLOR RN; Confirmation: Confirmed ; Classification: Medical ; Code: 559338896 ; Contributor System: PowerChart ; Last Updated: 01/13/2020 11:09 EDT ; Life Cycle Status: Active ; Vocabulary: SNOMED CT Aortic valve disease (SNOMED CT :14140142 ) Name of Problem: Aortic valve disease ; Recorder: Jhon Perez RN; Confirmation: Confirmed ; Classification: Medical ; Code: 53709924 ; Contributor System: PowerChart ; Last Updated: 05/24/2015 21:46 EDT ; Life Cycle Date: 05/24/2015 ; Life Cycle Status: Active ; Vocabulary: SNOMED CT Arthritis (SNOMED CT :8410921 ) Name of Problem: Arthritis ; Recorder: RENETTA TRAYLOR RN; Confirmation: Confirmed ; Classification: Medical ; Code: 6479307 ; Contributor System: PowerChart ; Last Updated: 12/23/2018 11:50 EST ; Life Cycle Date: 12/23/2018 ; Life Cycle Status: Active ; Vocabulary: SNOMED CT At risk for sleep apnea (IMO :73104417 ) Name of Problem: At risk for sleep apnea ; Recorder: SYSTEM, SYSTEM; Confirmation: Confirmed ; Classification: Medical ; Code: 20160664 ; Last Updated: 12/23/2018 12:09 EST ; Life Cycle Date: 12/23/2018 ; Life Cycle Status: Active ; Vocabulary: IMO Back pain (SNOMED CT :5837326301 ) Name of Problem: Back pain ; Recorder: RENETTA TRAYLOR RN; Confirmation: Confirmed ; Classification: Medical ; Code: 2472106728 ; Contributor System: PowerChart ; Last Updated: 12/23/2018 11:50 EST ; Life Cycle Date: 12/23/2018 ; Life Cycle Status: Active ; Vocabulary: SNOMED CT CAD (coronary artery disease) (SNOMED CT :11848721 ) Name of Problem: CAD (coronary artery disease) ; Recorder: Jhon Perez RN; Confirmation: Confirmed ; Classification: Medical ; Code: 04300826 ; Contributor System: PowerChart ; Last Updated: 05/24/2015 21:45 EDT ; Life Cycle Date: 05/24/2015 ; Life Cycle Status: Active ; Vocabulary: SNOMED CT Cervical spinal stenosis (SNOMED CT :982046077 ) Name of Problem: Cervical spinal stenosis ; Recorder: QUOC HALL RN; Confirmation: Confirmed ; Classification: Medical ; Code: 196952610 ; Contributor System: PowerChart ; Last Updated: 01/13/2020 11:13 EDT ; Life Cycle Date: 01/13/2020 ; Life Cycle Status: Active ; Vocabulary: SNOMED CT Claudication (SNOMED CT :181751314 ) Name of Problem: Claudication ; Recorder: ALFREDA CASTILLO; Confirmation: Confirmed ; Classification: Medical ; Code: 442636874 ; Contributor System: PowerChart ; Last Updated: 06/13/2019 12:55 EDT ; Life Cycle Date: 06/13/2019 ; Life Cycle Status: Active ; Vocabulary: SNOMED CT Colorectal surgery (SNOMED CT :6916532688 ) Name of Problem: Colorectal surgery ; Recorder: QUOC HALL RN; Confirmation: Confirmed ; Classification: Medical ; Code: 6939728101 ; Contributor System: PowerChart ; Last Updated: 01/13/2020 11:12 EDT ; Life Cycle Date: 01/13/2020 ; Life Cycle Status: Active ; Vocabulary: SNOMED CT Diabetes (SNOMED CT :753346709 ) Name of Problem: Diabetes ; Recorder: Lorena Brannon RN; Confirmation: Confirmed ; Classification: Patient Stated ; Code: 971262023 ; Contributor System: PowerChart ; Last Updated: 01/28/2021 9:20 EDT ; Life Cycle Date: 01/28/2021 ; Life Cycle Status: Active ; Vocabulary: SNOMED CT Disorder of prostate (SNOMED CT :83019563 ) Name of Problem: Disorder of prostate ; Recorder: LILIANA CAMILO RN; Confirmation: Confirmed ; Classification: Patient Stated ; Code: 51851545 ; Contributor System: PowerChart ; Last Updated: 04/19/2018 9:14 EDT ; Life Cycle Date: 04/19/2018 ; Life Cycle Status: Active ; Vocabulary: SNOMED CT Diverticulitis///HX (SNOMED CT :695793900 ) Name of Problem: Diverticulitis///HX ; Recorder: RENETTA TRAYLOR RN; Confirmation: Confirmed ; Classification: Medical ; Code: 291773306 ; Contributor System: PowerChart ; Last Updated: 12/23/2018 11:46 EST ; Life Cycle Date: 12/23/2018 ; Life Cycle Status: Active ; Vocabulary: SNOMED CT Dizzy spells (occasional) (SNOMED CT :022091908 ) Name of Problem: Dizzy spells (occasional) ; Recorder: QUOC HALL RN; Confirmation: Confirmed ; Classification: Medical ; Code: 270599288 ; Contributor System: PowerChart ; Last Updated: 01/13/2020 11:16 EDT ; Life Cycle Date: 01/13/2020 ; Life Cycle Status: Active ; Vocabulary: SNOMED CT Fatty liver (SNOMED CT :379783952 ) Name of Problem: Fatty liver ; Recorder: QUOC HALL RN; Confirmation: Confirmed ; Classification: Medical ; Code: 213440575 ; Contributor System: PowerChart ; Last Updated: 01/13/2020 11:14 EDT ; Life Cycle Date: 01/13/2020 ; Life Cycle Status: Active ; Vocabulary: SNOMED CT GERD - Gastro-esophageal reflux disease (SNOMED CT :2446598614 ) Name of Problem: GERD - Gastro-esophageal reflux disease ; Recorder: RENETTA TRAYLOR RN; Confirmation: Confirmed ; Classification: Medical ; Code: 9191761599 ; Contributor System: PowerChart ; Last Updated: 12/23/2018 11:49 EST ; Life Cycle Date: 12/23/2018 ; Life Cycle Status: Active ; Vocabulary: SNOMED CT Hard of hearing (SNOMED CT :367008253 ) Name of Problem: Hard of hearing ; Recorder: LILIANA CAMILO RN; Confirmation: Confirmed ; Classification: Patient Stated ; Code: 464635617 ; Contributor System: PowerChart ; Last Updated: 04/19/2018 9:13 EDT ; Life Cycle Date: 04/19/2018 ; Life Cycle Status: Active ; Vocabulary: SNOMED CT Has been smoking for 30 years ([address] :757832992 ) Name of Problem: Has been smoking for 30 years ; Recorder: Nieves Fraga, Registered Nurse; Confirmation: Confirmed ; Classification: Patient Stated ; Code: 154418924 ; Contributor System: PowerChart ; Last Updated: 03/08/2020 10:17 EDT ; Life Cycle Date: 03/08/2020 ; Life Cycle Status: Active ; Vocabulary: SNOMED CT High cholesterol (SNOMED CT :12725260 ) Name of Problem: High cholesterol ; Recorder: Jhon Perez RN; Confirmation: Confirmed ; Classification: Medical ; Code: 00826273 ; Contributor System: PowerChart ; Last Updated: 05/24/2015 21:46 EDT ; Life Cycle Date: 05/24/2015 ; Life Cycle Status: Active ; Vocabulary: SNOMED CT HTN (hypertension) (SNOMED CT :7937971111 ) Name of Problem: HTN (hypertension) ; Recorder: Jhon Perez, MIKE; Confirmation: Confirmed ; Classification: Medical ; Code: 3059809558 ; Contributor System: PowerChart ; Last Updated: 05/24/2015 21:45 EDT ; Life Cycle Date: 05/24/2015 ; Life Cycle Status: Active ; Vocabulary: SNOMED CT Murmur (SNOMED CT :297247301 ) Name of Problem: Murmur ; Recorder: RENETTA TRAYLOR RN; Confirmation: Confirmed ; Classification: Medical ; Code: 638914855 ; Contributor System: PowerChart ; Last Updated: 12/23/2018 11:49 EST ; Life Cycle Date: 12/23/2018 ; Life Cycle Status: Active ; Vocabulary: SNOMED CT Peripheral vascular disease (SNOMED CT :5275573436 ) Name of Problem: Peripheral vascular disease ; Recorder: LILIANA CAMILO RN; Confirmation: Confirmed ; Classification: Patient Stated ; Code: 9682045458 ; Contributor System: EnstratiusChart ; Last Updated: 04/19/2018 9:13 EDT ; Life Cycle Date: 04/19/2018 ; Life Cycle Status: Active ; Vocabulary: SNOMED CT Prostatitis/ (SNOMED CT :09250012 ) Name of Problem: Prostatitis/ ; Recorder: RENETTA TRAYLOR RN; Confirmation: Confirmed ; Classification: Medical ; Code: 77806786 ; Contributor System: [employer] ; Last Updated: 12/23/2018 11:47 EST ; Life Cycle Status: Active ; Vocabulary: SNOMED CT Renal calculus///HX (SNOMED CT :156864319 ) Name of Problem: Renal calculus///HX ; Recorder: RENETTA TRAYLOR RN; Confirmation: Confirmed ; Classification: Medical ; Code: 023226239 ; Contributor System: EnstratiusChart ; Last Updated: 12/23/2018 11:50 EST ; Life Cycle Date: 12/23/2018 ; Life Cycle Status: Active ; Vocabulary: SNOMED CT Stented coronary artery (SNOMED CT :7592199277 ) Name of Problem: Stented coronary artery ; Recorder: RENETTA TRAYLOR RN; Confirmation: Confirmed ; Classification: Medical ; Code: 2605326448 ; Contributor System: PowerChart ; Last Updated: 12/23/2018 11:48 EST ; Life Cycle Date: 12/23/2018 ; Life Cycle Status: Active ; Vocabulary: SNOMED CT Diagnoses(Active) Hypertension Date: 08/28/2021 ; Diagnosis Type: Reason For Visit ; Confirmation: Complaint of ; Clinical Dx: Hypertension ; Classification: Medical ; Clinical Service: Emergency medicine ; Code: PNED ; Probability: 0 ; Diagnosis Code: [id number] ED Height and Weight Height Source : Stated Height Entry Format : [place] Height, Feet : 5 ft(Converted to: 152 cm, 60 Inch) Height, Inches : 9 Inch(Converted to: 0 ft 9 Inch, 22.86 cm) Clinical Height : 175.26 cm Weight Source, ED : Critical estimated dosing weight Weight Entry Format : [place] Weight, Pounds : 173 lb Clinical Dosing Weight : 78.64 kg Body Surface Area (BSA) : 1.94 m2 Body Mass Index : 25.6 kg/m2 (HI) [place] Body Weight (IBW) : 69.73 kg MALINA MANDUJANO RN - 08/28/2021 18:03 EDT Electronically signed by [facility], [facility] Conversion Inspector Watch Assembly Cerner at 02/16/2023 3:58 PM CDT documented in this encounter Plan of Treatment Upcoming Encounters Date Type Department Care Team (Late st Contact Info) Description 03/10/2025 1:15 PM EDT Office Visit [facility] Cardiology - [place] [address] [place] [address] Tabby Mcallister PA-C [address] [facility] [address] [place] [address] documented as of this encounter Visit Diagnoses Not on filedocumented in this encounter Care Teams Supervisor Graphite Relationship Specialty Start Date End Date Stacy Moise PA PCP - General 03/02/23 documented as of this encounter
--- OUTSIDE RECORDS SUMMARY | 2024-09-30 17:10 | XMS_ITS | Encounter Summary ---
Author Organization [employer] Address [address] [place] [address] Care Team Providers Care Pusher Runner Name Role Phone Stacy Moise Primary Care Provider [phone] Encounter Details Date Type Department Care Team (Late st Contact Info) Description 05/05/2021 Transcribed Document [facility] Family Medicine [facility] [place] [address] ProviderMireya MD [address] [place] [id number] Social History Tobacco Use Types Packs/Day Years Used Date Smoking Tobacco: Never Assessed Sex and Gender Information Value Date Recorded Sex Assigned at Not on file Legal Sex Male 5:25 PM CDT Gender Identity Not on file Sexual Orientation Not on file documented as of this encounter Miscellaneous Notes * Cerner Conversion Note - Mireya ProviderMD - 05/05/2021 12:55 PM CDT Pain Assessment Entered On: 05/05/2021 14:03 EDT Performed On: 05/05/2021 14:03 EDT by MALINA MANDUJANO RN Intervention Information: ketorolac Performed by BOLA RIOS RN on 05/05/2021 13:31:00 EDT ketorolac,30mg IV Push,Peripheral Line 1 Pain Assessment Pain Assessment : Follow-up assessment Pain Scale Used : 0-10 Scale MALINA MANDUJANO RN - 05/05/2021 14:03 EDT Pain Scale Intensity : 0 MALINA MANDUJANO RN - 05/05/2021 14:03 EDT Image 4 - Images currently included in the form version of this document have not been included in the text rendition version of the form. documented in this encounter Plan of Treatment Upcoming Encounters Date Type Department Care Team (Late st Contact Info) Description 03/10/2025 1:15 PM EDT Office Visit [facility] Cardiology - [place] [address] [place] [address] Tabby Mcallister PA-C [address] [facility] [address] [place] [address] documented as of this encounter Visit Diagnoses Not on filedocumented in this encounter Care Teams Pusher Runner Relationship Specialty Start Date End Date Stacy Moise PA PCP - General 03/02/23 documented as of this encounter
--- OUTSIDE RECORDS SUMMARY | 2024-09-30 17:10 | XMS_ITS | Encounter Summary ---
Author Organization [email or web address] Address [address] [place] [address] Care Team Providers Care Full Stack Developer Name Role Phone Stacy Moise Primary Care Provider [phone] Encounter Details Date Type Department Care Team (Late st Contact Info) Description 01/28/2021 Transcribed Document [facility] Family Medicine [facility] [place] [address] ProviderMireya MD [address] [place] [id number] Social History Tobacco Use Types Packs/Day Years Used Date Smoking Tobacco: Never Assessed Sex and Gender Information Value Date Recorded Sex Assigned at Not on file Legal Sex Male 5:25 PM CDT Gender Identity Not on file Sexual Orientation Not on file documented as of this encounter Miscellaneous Notes * Cerner Conversion Note - Mireya Osuna MD - 01/28/2021 4:06 PM CDT Nursing Discharge Summary Entered On: 01/28/2021 16:09 EDT Performed On: 01/28/2021 16:06 EDT by Lorena Brannon, tufting machine operator Documentation Discharge Date/Time : 01/28/2021 17:17 EDT Lorena Brannon RN - 01/28/2021 17:18 EDT Patient Disposition, General : Discharge Discharge To : Home with ambulatory/outpatient follow-up Mode Of Departure, General Discharge : Private vehicle Accompanied By, Discharge : Spouse IV Discontinued : Yes Personal Belongings With Patient : Yes Pt's Own Supply of Medications Returned : No patient supply of medications to return Discharge Instructions Reviewed With, Opportunity For Questions Given : Patient, Spouse Patient Education Completed : Yes Teaching Method : Printed materials Teaching Evaluation : Returns demonstration, Verbalizes understanding Lorena Brannon, RN - 01/28/2021 16:06 EDT documented in this encounter Plan of Treatment Upcoming Encounters Date Type Department Care Team (Late st Contact Info) Description 03/10/2025 1:15 PM EDT Office Visit [facility] Cardiology - [place] [address] [place] [address] Tabby Mcallister PA-C [address] [facility] [place] [address] [place] [address] documented as of this encounter Visit Diagnoses Not on filedocumented in this encounter Care Teams Full Stack Developer Relationship Specialty Start Date End Date Stacy Moise PA PCP - General 03/02/23 documented as of this encounter
--- OUTSIDE RECORDS SUMMARY | 2024-09-30 17:10 | XMS_ITS | Encounter Summary ---
Author Organization [facility] [employer] Address [address] [place] [address] Care Team Providers Care Radio Engineering Teacher Name Role Phone Stacy Moise Primary Care Provider [phone] Encounter Details Date Type Department Care Team (Late st Contact Info) Description 08/28/2021 Transcribed Document [facility] [place] [facility] [place] [address] ProviderMireya MD [address] [place] [address] Social History Tobacco Use Types Packs/Day Years Used Date Smoking Tobacco: Never Assessed Sex and Gender Information Value Date Recorded Sex Assigned at Not on file Legal Sex Male 5:25 PM CDT Gender Identity Not on file Sexual Orientation Not on file documented as of this encounter Miscellaneous Notes * Cerner Conversion Note - Historical ProviderMD - 08/28/2021 10:01 PM CDT Electronically signed by [facility] Conversion Accounting File Clerk Cerner at 02/16/2023 3:53 PM CDT documented in this encounter Plan of Treatment Upcoming Encounters Date Type Department Care Team (Late st Contact Info) Description 03/10/2025 1:15 PM EDT Office Visit [facility] Cardiology - [place] [address] [place] [address] Tabby Mcallister PA-C [address] [facility] [address] [place] [address] documented as of this encounter Visit Diagnoses Not on filedocumented in this encounter Care Teams Radio Engineering Teacher Relationship Specialty Start Date End Date Stacy Moise PA PCP - General 03/02/23 documented as of this encounter
--- OUTSIDE RECORDS SUMMARY | 2024-09-30 17:10 | XMS_ITS | Encounter Summary ---
Author Organization [employer] Address [address] [address] [facility] [place] [address] Care Team Providers Care Roller Coaster Designer Name Role Phone Stacy Moise Primary Care Provider [phone] Encounter Details Date Type Department Care Team (Late st Contact Info) Description 01/28/2021 Historic Encounter [facility] [address] [place] [address] ProviderJuan Historical Social History Tobacco [...] Description 03/10/2025 1:15 PM EDT Office Visit [facility] Cardiology - [place] [address] [place] [address] Tabby Mcallister PA-C [address] [place] [address] [address] [place] [address] documented as of this encounter Procedures Procedure Name Priority Date/Time Associated Diagnosis Comments CHEM8+ POC Routine 01/28/2021 9:42 AM EDT documented in this encounter Results * (ABNORMAL) Chem8+ POC (01/28/2021 9:42 AM EDT) Sodium POC 141 138 - 146 mmol/L 01/28/2021 1:42 PM EDT [facility] Potassium POC 3.9 3.5 - 4.9 mmol/L 01/28/2021 1:42 PM EDT [facility] Chloride POC 106 98 - 109 mmol/L 01/28/2021 1:42 PM EDT [facility] CO2 POC 24.0 24.0 - 29.0 mmol/L 01/28/2021 1:42 PM EDT [facility] Anion Gap POC 16.0 10.0 - 20.0 mmol/L 01/28/2021 1:42 PM EDT [facility] Ca Ionized POC 1.21 1.12 - 1.32 mmol/L 01/28/2021 1:42 PM EDT [facility] Glucose POC 118(H) 70 - 105 mg/dL 01/28/2021 1:42 PM EDT [facility] BUN POC 16 8 - 26 mg/dL 01/28/2021 1:42 PM EDT [facility] Creatinine POC 0.8 0.6 - 1.3 mg/dL 01/28/2021 1:42 PM EDT [facility] eGFR 114 >=60 mL/min/1. 73m2 01/28/2021 10:32 PM EDT [facility] eGFR NonAfrican 94 >=60 mL/min/1. 73m2 01/28/2021 10:32 PM EDT [facility] Hemoglobin POC 11.9(L) 12.0 - 17.0 Gram/dL 01/28/2021 1:42 PM EDT [facility] Hematocrit POC 35.0(L) 38.0 - 51.0 % 01/28/2021 1:42 PM EDT [facility] Cisco Certified Network Professional [id number] 01/28/2021 1:42 PM EDT [facility] Device SN [id number] 01/28/2021 1:42 PM EDT [facility] Blood 01/28/2021 9:42 AM EDT 01/28/2021 10:32 PM EDT Sle Historical Provider POINT OF CARE TEST ORDE LORRAINE Final Result [facility] [address] [place] [address], [facility] [phone] documented in this encounter Visit Diagnoses Not on filedocumented in this encounter Care Teams Roller Coaster Designer Relationship Specialty Start Date End Date Stacy Moise PA PCP - General 03/02/23 documented as of this encounter
--- OUTSIDE RECORDS SUMMARY | 2024-09-30 17:10 | XMS_ITS | Encounter Summary ---
Author Organization [employer] Address [address] [place] [address] Care Team Providers Care Groover And Turner Name Role Phone Sudhir Payton Primary Care Provider [phone] Encounter Details Date Type Department Care Team (Late st Contact Info) Description 01/28/[address] [facility] Family Medicine [facility] [place] [address] ProviderMireya MD [address] [place] [id number] Social History Tobacco Use Types Packs/Day Years Used Date Smoking Tobacco: Never Assessed Sex and Gender Information Value Date Recorded Sex Assigned at Not on file Legal Sex Male 5:25 PM CDT Gender Identity Not on file Sexual Orientation Not on file documented as of this encounter Miscellaneous Notes * Cerner Conversion Note - Mireya Osuna MD - 01/28/2021 4:41 PM CDT [facility] [place] [address] [address] [facility] [place] :1945 Visit Time:01/28/2021 Your Visit Summary Your Care Team Admitting Physician - KOFI MCALLISTER PA-UNK Attending Physician - KOFI MCALLISTER PA-UNK Primary Care Physician - SUDHIR PAYTON PA-EKATERINA Referring Physician - KOFI MCALLISTER PA-UNK Discharge Vitals Heart Rate (Monitored) 54 Respiratory Rate 16 Blood Pressure 144/66 What to do next Instructions From Your Care Team Diet after Discharge: Resume usual diet as tolerated, _, _ Activity after Discharge: _, Rest and relax today, No strenuous activity Driving after Discharge: Do not drive for 24 hours Showering/Bathing: _, No tub bathing, soaking or swimming for 3 to 5 days. Notify Provider of: Monitor site for signs of bleeding and infection. If bleeding should occur, apply pressure and call 911. Discharge Activity: Rest and relax for the next 24hours, then advance activity as tolerated., Discharge Activity: Other (use Special Instructions) Diet: Discharge Diet: Resume usual diet as tolerated Follow-Up Appointments Follow Up with KOFI MCALLISTER When Within 2 weeks Comments Office to call with appoint/instructions Where: [address] [place] [phone] [employer] (1) Medications What How Much When Instructions Next Dose atorvastatin (atorvastatin 40 mg oral tablet) 1 Tablet(s) Oral Every Day clopidogrel (Plavix 75 mg oral tablet) 1 Tablet(s) Oral Every Day levothyroxine (levothyroxine 25 mcg (0.025 mg) oral tablet) 1 Tablet(s) Oral Every Day amLODIPine (Norvasc 10 mg oral tablet) 1 Tablet(s) Oral Every Day aspirin (Aspir 81) 81 Milligram(s) Oral Every Day cetirizine (ZyrTEC) 10 Milligram(s) Oral Every Day as needed for as needed for allergy symptoms cyanocobalamin (Vitamin B12) 1,000 Microgram(s) IntraMuscular Every [...] isosorbide dinitrate 30 Milligram(s) Oral Every Day lisinopril 20 Milligram(s) Oral [...] This Visit No Immunizations Found Education Materials Groin Site Care Refer to this sheet [...] questions after your procedure. HOME CARE INSTRUCTIONS ??? You may shower 24 hours after the procedure. Remove the bandage (dressing ) and gently wash the site with plain soap and water. Gently pat the site dry. ??? Do not apply powder or lotion to the site. ??? Do not sit in a bathtub, swimming pool, or whirlpool for 5 to 7 days. ??? No bending, squatting, or lifting anything over 10 pounds (4.5 kg) as directed by your caregiver. ??? Inspect the site at least twice daily. ??? Do not drive home if you are discharged the same day of the procedure. Have someone else drive you. ??? You may drive 24 hours after the procedure unless otherwise instructed by your caregiver. What to expect: ??? Any bruising will usually fade within 1 to 2 weeks. ??? Blood that collects in the tissue (hematoma ) may be painful to the touch. It should usually decrease in size and tenderness within 1 to 2 weeks. SEEK IMMEDIATE MEDICAL CARE IF: ??? You have unusual pain at the groin site or down the affected leg. ??? You have redness, warmth, swelling, or pain at the groin site. ??? You have drainage (other than a small amount of blood on the dressing). ??? You have chills. ??? You have a fever or persistent symptoms for more than 72 hours. ??? You have a fever and your symptoms suddenly get worse. ??? Your leg becomes pale, cool, tingly, or numb. ??? You have heavy bleeding from the site. Hold pressure on the site. Document Released: 11/21/2011 Document Revised: 01/10/2013 Document Reviewed: 11/21/2011 ExitCare?? Patient Information ??2013 [facility] Angiogram, Care After This sheet gives you [...] cannot use soap and water, use hand die keeper. ? Change your bandage as told by [...] it is okay. ??? You may shower 24???48 hours after the procedure or as told [...] as told by your doctor, usually for 1???2 days. ??? Do not lift anything that [...] (urine) clear or pale yellow. ??? Take [id number]-[id number] and prescription medicines only as told by [...] okay to do so. You may shower 24???48 hours after the procedure or as told [...] provider. Document Revised: 10/01/2018 Document Reviewed: 10/13/2017 Elsevier Patient Education ?? 2020 [employer] Heart-Healthy Eating Plan Heart-healthy meal planning [...] plate with lean protein foods. ??? Eat 4???5 servings of vegetables per day. A serving of vegetables is: ? 1 cup of raw or cooked vegetables. ? 2 cups of raw leafy greens. ??? Eat 4???5 servings of fruit per day. A serving of fruit is: ? 1 medium whole fruit. ? ?? cup of dried fruit. ? ?? cup of fresh, frozen, or canned fruit. ? ?? cup of 100% fruit juice. ??? Eat more foods that have soluble fiber. These are apples, broccoli, carrots, beans, peas, and barley. Try to get 20???30 g of fiber per day. ??? Eat 4???5 servings of nuts, legumes, and seeds per week: ? 1 serving of dried beans or legumes equals ?? cup after being cooked. ? 1 serving of nuts is ?? cup. ? 1 serving of seeds equals [...] Fats and oils Meat fat, or shortening. [place] butter, hydrogenated oils, palm oil, coconut oil, [...] provider. Document Revised: 12/23/2018 Document Reviewed: 11/26/2018 [employer] Patient Education ?? 2020 [employer] Moderate Conscious Sedation, Adult, Care After [...] you are awake and alert. ??? Take ddrb-jow-ykdphpj and prescription medicines only as told by [...] provider. Document Revised: 10/01/2018 Document Reviewed: 02/07/2017 Elsevier Patient Education ?? 2020 [employer] FAQ ??? Patient COVID-19 testing Why do I need [...] patients who test positive for COVID-19. If I???m a patient, should I wear a mask? [...] through the local health department and the [place] Department for Public Health. Those organizations are [...] need during a recommended self-quarantine period. The patient???s name is not revealed to anyone during the contact tracing interviews, even if a contact asks. Who would be considered a ???close contact?? ? According to the CDC, a close [...] a face covering and maintain social distancing ??? at least 6 feet from others at [...] and need to call 911, notify the fulling mill operator that you have, or think you [...] others. You should stay in a specific ???sick room?? if possible, and away from other people [...] (including before you enter a health care provider???s office). ??? If you are caring for [...] clean your hands with an alcohol-based hand die keeper that contains at least 60% alcohol. Clean your hands often. ??? Wash hands: Wash your hands often with soap and water for at least 20 seconds when visibly dirty. This is especially important after blowing your nose, coughing or sneezing, and going to the bathroom, and before eating or preparing food. ??? Hand die keeper: Use an alcohol-based hand die keeper with at least 60% alcohol, covering all [...] and water or put them in the rad technologist. Clean all high-touch surfaces every day. Clean high-touch surfaces in your isolation area (???sick room?? and bathroom) every day; let a caregiver clean and disinfect high-touch surfaces in other areas of the home. ??? Clean and disinfect: Routinely clean high-touch surfaces in your ???sick room?? and bathroom. Let someone else clean and disinfect surfaces in common areas, but not your bedroom and bathroom. ? If a caregiver or other person needs to clean and disinfect a sick person???s bedroom or bathroom, they should do so [...] or body fluids on them. ??? Household systems software engineer and disinfectants: Clean the area or item with soap and water or another detergent if it is dirty. Then, use a household disinfectant. ??? Be sure to follow the instructions on the label to ensure safe and effective use of the product. Many products recommend keeping the surface wet for several minutes to ensure germs are killed. Many also recommend precautions such as wearing gloves and making sure you have good ventilation during use of the product. ??? Most EPA-registered household disinfectants should be effective. A full list of disinfectants can be found here: https://www.epa.gov/pesticide-registration/dtny-z-dskwpbaaezyao-lvq-ilcxbkr-ef rs-cov-2 Emergency Awareness and Preventative Care STROKE is [...] Assistance with quitting is available by contacting 8-356-IPPW-NOW. This is a free resource providing counseling, support, and referral. Or you may contact your personal physician. [place] Suicide Prevention Lifeline: The National Suicide Prevention [...] CPR? There are two easy steps: Call 9-1-1 if you see a teen or adult [...] This Visit (last charted value for your 01/28/2021 visit) Microbiology 01/25/2021 1:46 PM SARS-CoV-2 (COVID19 PCR): Negative Specials/Interventional 01/28/2021 12:04 PM XA Vicky Renal Art and Acc Art Ang Bi: XA Vicky Renal Art and Acc Art Ang Bi Patient Name:SCOTTIE CURRAN ERIKA I have received and understand this information and was given the opportunity to ask questions. Patient/Front End Manager Name: Patient/Front End Manager Signature: Relationship to Patient: Clinician/Hospital Front End Manager Signature: Date: documented in this encounter Plan of Treatment Upcoming Encounters Date Type Department Care Team (Late st Contact Info) Description 03/10/2025 1:15 PM EDT Office Visit [facility] Cardiology - [place] [address] [place] [address] Kofi Mcallister PA-C [address] [facility] [address] [place] [address] documented as of this encounter Visit Diagnoses Not on filedocumented in this encounter Care Teams Groover And Turner Relationship Specialty Start Date End Date Sudhir Payton PA PCP - General 03/02/23 documented as of this encounter
--- OUTSIDE RECORDS SUMMARY | 2024-09-30 17:10 | XMS_ITS | Encounter Summary ---
Author Organization [employer] [address] [facility] [place] [address] Care Team Providers Care Motion Picture Critic Name Role Phone Stacy Moise Primary Care Provider [phone] Encounter Details Date Type Department Care Team (Late st Contact Info) Description 11/26/2021 Transcribed Document [facility] [place] [facility] [place] [facility] [place] [address] ProviderMireya MD [address] [place] [address] [phone] Social History Tobacco Use Types Packs/Day Years Used Date Smoking Tobacco: Never Assessed Sex and Gender Information Value Date Recorded Sex Assigned at Not on file Legal Sex Male 5:25 PM CDT Gender Identity Not on file Sexual Orientation Not on file documented as of this encounter Miscellaneous Notes * Cerner Conversion Note - Mireya ProviderMD - 11/26/2021 11:29 AM ENERGY PROFESSIONAL ED Triage Entered On: 11/26/2021 11:41 EST Performed On: 11/26/2021 11:37 EST by Betsy Art, PLC TECHNICIAN Triage Across the Room Chief Complaint : c/o MSCP intermittently x 2 weeks. Nonexertional, denies SOA, palpitations, n/v, diaphoresis. Hx CAD s/p stents. 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 Secondary c/o kidney pains on the left side x 5 days. Triage Date/Time : 11/26/2021 11:37 EST Betsy Art RN - 11/26/2021 11:37 EST DCP GENERIC CODE Tracking Acuity : 2 - Emergent Tracking Group : [facility] ED Betsy Art RN - 11/26/2021 11:37 EST Mode of Arrival : Ambulatory Transported to ED by : Private vehicle To Room Via : Ambulate Accompanied By : Spouse ED Vital Signs : Document Height & Weight : Document ED Allergies : Document ED Reason for Visit : Document Tetanus Immunization : Unknown Betsy Art RN - 11/26/2021 11:37 EST Infectious Disease History Does patient have symptoms of COVID-19? : No Has the Patient Been Tested for COVID-19 in the last 14 days? : No, Patient stated Does the Patient state known exposure to a COVID-19 positive case in the last 14 days? : No Patient Vaccinated for COVID-19 : Fully vaccinated Betsy Art RN - 11/26/2021 11:37 EST Infectious Disease Risk Screening Grid Cough < 2 wks of unknown origin : NO Cough > 2 weeks : NO Blood in Sputum : NO Fever or self-reported Fever : NO Rash of unknown origin : NO Headache : NO Stiff neck : NO Night Sweats : NO Unexplained Weight Loss : NO Diarrhea (3 episode per day) : NO Betsy Art RN - 11/26/2021 11:37 EST Physical contact outside [place] in the last 30 days : No Hospitalized in Foreign Country : No Infectious Disease History : Chicken pox/Shingles, Measles, Mumps, Pertussis (Whooping cough) INF Disease TB Screening Calc : 0 INF Disease Recent Travel Calc : 0 Betsy Art RN - 11/26/2021 11:37 EST Vital Signs ED Temperature Source : Oral Temperature Mode : Fahrenheit Temperature, Fahrenheit : 97.8 Deg F ED Pain : Yes Clinical Temperature, C : 36.6 Deg C Oxygen Therapy Mode : Room air Peripheral Pulse Rate : 60 bpm Respiratory Rate : 16 Breaths/Min Systolic Blood Pressure : 190 mmHg (HI) Diastolic Blood Pressure : 80 mmHg Oxygen Saturation : 98 % Betsy Art RN - 11/26/2021 11:37 EST Allergy (As Of: 11/26/2021 11:41:19 EST) Allergies (Active) No Known Medication Allergies Estimated Onset Date: Unspecified ; Created By: SHEILA MARTINEZ RN; Reaction Status: Active ; Category: Drug ; Substance: No Known Medication Allergies ; Type: Allergy ; Updated By: SHEILA MARTINEZ RN; Reviewed Date: 10/27/2021 21:15 EST Diagnosis Control ED (As Of: 11/26/2021 11:41:19 EST) Problems(Active) Acquired hypothyroidism (SNOMED CT :544262798 ) Name of Problem: Acquired hypothyroidism ; Recorder: Lorena Brannon RN; Confirmation: Confirmed ; Classification: Patient Stated ; Code: 540776430 ; Contributor System: PowerChart ; Last Updated: 01/28/2021 9:20 EDT ; Life Cycle Date: 01/28/2021 ; Life Cycle Status: Active ; Vocabulary: SNOMED CT Anemia (hx of) (SNOMED CT :143038426 ) Name of Problem: Anemia (hx of) ; Recorder: QUOC HALL RN; Confirmation: Confirmed ; Classification: Medical ; Code: [id number] ; Contributor System: PowerChart ; Last Updated: 01/13/2020 11:12 EDT ; Life Cycle Date: 01/13/2020 ; Life Cycle Status: Active ; Vocabulary: SNOMED CT Angina (hx of, Last had in 2016) (SNOMED CT :329910213 ) Name of Problem: Angina (hx of, Last had in 2016) ; Recorder: RENETTA TRAYLOR RN; Confirmation: Confirmed ; Classification: Medical ; Code: 788562169 ; Contributor System: PowerChart ; Last Updated: 01/13/2020 11:09 EDT ; Life Cycle Status: Active ; Vocabulary: SNOMED CT Aortic valve disease (SNOMED CT :81425367 ) Name of Problem: Aortic valve disease ; Recorder: Jhon Perez RN; Confirmation: Confirmed ; Classification: Medical ; Code: 10926220 ; Contributor System: PowerChart ; Last Updated: 05/24/2015 21:46 EDT ; Life Cycle Date: 05/24/2015 ; Life Cycle Status: Active ; Vocabulary: SNOMED CT Arthritis (SNOMED CT :3258214 ) Name of Problem: Arthritis ; Recorder: RENETTA TRAYLOR RN; Confirmation: Confirmed ; Classification: Medical ; Code: 4068940 ; Contributor System: PowerChart ; Last Updated: 12/23/2018 11:50 EST ; Life Cycle Date: 12/23/2018 ; Life Cycle Status: Active ; Vocabulary: SNOMED CT At risk for sleep apnea (IMO :73800623 ) Name of Problem: At risk for sleep apnea ; Recorder: SYSTEM, SYSTEM; Confirmation: Confirmed ; Classification: Medical ; Code: 84505233 ; Last Updated: 12/23/2018 12:09 EST ; Life Cycle Date: 12/23/2018 ; Life Cycle Status: Active ; Vocabulary: IMO Back pain (SNOMED CT :4847020689 ) Name of Problem: Back pain ; Recorder: RENETTA TRAYLOR RN; Confirmation: Confirmed ; Classification: Medical ; Code: 8250929421 ; Contributor System: PowerChart ; Last Updated: 12/23/2018 11:50 EST ; Life Cycle Date: 12/23/2018 ; Life Cycle Status: Active ; Vocabulary: SNOMED CT CAD (coronary artery disease) (SNOMED CT :71325509 ) Name of Problem: CAD (coronary artery disease) ; Recorder: Jhon Perez RN; Confirmation: Confirmed ; Classification: Medical ; Code: 92605970 ; Contributor System: PowerChart ; Last Updated: 05/24/2015 21:45 EDT ; Life Cycle Date: 05/24/2015 ; Life Cycle Status: Active ; Vocabulary: SNOMED CT Cervical spinal stenosis (SNOMED CT :258287441 ) Name of Problem: Cervical spinal stenosis ; Recorder: QUOC HALL RN; Confirmation: Confirmed ; Classification: Medical ; Code: 230972812 ; Contributor System: PowerChart ; Last Updated: 01/13/2020 11:13 EDT ; Life Cycle Date: 01/13/2020 ; Life Cycle Status: Active ; Vocabulary: SNOMED CT Claudication (SNOMED CT :363494335 ) Name of Problem: Claudication ; Recorder: ALFREDA CASTILLO; Confirmation: Confirmed ; Classification: Medical ; Code: 138978511 ; Contributor System: PowerChart ; Last Updated: 06/13/2019 12:55 EDT ; Life Cycle Date: 06/13/2019 ; Life Cycle Status: Active ; Vocabulary: SNOMED CT Colorectal surgery (SNOMED CT :3887618317 ) Name of Problem: Colorectal surgery ; Recorder: QUOC HALL RN; Confirmation: Confirmed ; Classification: Medical ; Code: 1791676307 ; Contributor System: PowerChart ; Last Updated: 01/13/2020 11:12 EDT ; Life Cycle Date: 01/13/2020 ; Life Cycle Status: Active ; Vocabulary: SNOMED CT Diabetes (SNOMED CT :880544670 ) Name of Problem: Diabetes ; Recorder: Lorena Brannon RN; Confirmation: Confirmed ; Classification: Patient Stated ; Code: 692143883 ; Contributor System: InvenQueryChart ; Last Updated: 01/28/2021 9:20 EDT ; Life Cycle Date: 01/28/2021 ; Life Cycle Status: Active ; Vocabulary: SNOMED CT Disorder of prostate (SNOMED CT :57071264 ) Name of Problem: Disorder of prostate ; Recorder: LILIANA CAMILO RN; Confirmation: Confirmed ; Classification: Patient Stated ; Code: 36119795 ; Contributor System: PowerChart ; Last Updated: 04/19/2018 9:14 EDT ; Life Cycle Date: 04/19/2018 ; Life Cycle Status: Active ; Vocabulary: SNOMED CT Diverticulitis///HX (SNOMED CT :674258902 ) Name of Problem: Diverticulitis///HX ; Recorder: RENETTA TRAYLOR RN; Confirmation: Confirmed ; Classification: Medical ; Code: 330329556 ; Contributor System: PowerChart ; Last Updated: 12/23/2018 11:46 EST ; Life Cycle Date: 12/23/2018 ; Life Cycle Status: Active ; Vocabulary: SNOMED CT Dizzy spells (occasional) (SNOMED CT :442483290 ) Name of Problem: Dizzy spells (occasional) ; Recorder: QUOC HALL RN; Confirmation: Confirmed ; Classification: Medical ; Code: 588118193 ; Contributor System: PowerChart ; Last Updated: 01/13/2020 11:16 EDT ; Life Cycle Date: 01/13/2020 ; Life Cycle Status: Active ; Vocabulary: SNOMED CT Fatty liver (SNOMED CT :536898459 ) Name of Problem: Fatty liver ; Recorder: QUOC HALL RN; Confirmation: Confirmed ; Classification: Medical ; Code: 363791337 ; Contributor System: InvenQueryChart ; Last Updated: 01/13/2020 11:14 EDT ; Life Cycle Date: 01/13/2020 ; Life Cycle Status: Active ; Vocabulary: SNOMED CT GERD - Gastro-esophageal reflux disease (SNOMED CT :6452976044 ) Name of Problem: GERD - Gastro-esophageal reflux disease ; Recorder: RENETTA TRAYLOR RN; Confirmation: Confirmed ; Classification: Medical ; Code: 8542942103 ; Contributor System: PowerChart ; Last Updated: 12/23/2018 11:49 EST ; Life Cycle Date: 12/23/2018 ; Life Cycle Status: Active ; Vocabulary: SNOMED CT Hard of hearing (SNOMED CT :646700391 ) Name of Problem: Hard of hearing ; Recorder: LILIANA CAMILO RN; Confirmation: Confirmed ; Classification: Patient Stated ; Code: 067463655 ; Contributor System: PowerChart ; Last Updated: 04/19/2018 9:13 EDT ; Life Cycle Date: 04/19/2018 ; Life Cycle Status: Active ; Vocabulary: SNOMED CT Has been smoking for 30 years ([address] :216337241 ) Name of Problem: Has been smoking for 30 years ; Recorder: Nieves Fraga, Registered Nurse; Confirmation: Confirmed ; Classification: Patient Stated ; Code: 473261678 ; Contributor System: PowerChart ; Last Updated: 03/08/2020 10:17 EDT ; Life Cycle Date: 03/08/2020 ; Life Cycle Status: Active ; Vocabulary: SNOMED CT High cholesterol (SNOMED CT :36462899 ) Name of Problem: High cholesterol ; Recorder: Jhon Perez RN; Confirmation: Confirmed ; Classification: Medical ; Code: 68994930 ; Contributor System: PowerChart ; Last Updated: 05/24/2015 21:46 EDT ; Life Cycle Date: 05/24/2015 ; Life Cycle Status: Active ; Vocabulary: SNOMED CT HTN (hypertension) (SNOMED CT :6977395801 ) Name of Problem: HTN (hypertension) ; Recorder: Jhon Perez, MIKE; Confirmation: Confirmed ; Classification: Medical ; Code: 4614119843 ; Contributor System: PowerChart ; Last Updated: 05/24/2015 21:45 EDT ; Life Cycle Date: 05/24/2015 ; Life Cycle Status: Active ; Vocabulary: SNOMED CT Murmur (SNOMED CT :164624591 ) Name of Problem: Murmur ; Recorder: RENETTA TRAYLOR RN; Confirmation: Confirmed ; Classification: Medical ; Code: 556730070 ; Contributor System: PowerChart ; Last Updated: 12/23/2018 11:49 EST ; Life Cycle Date: 12/23/2018 ; Life Cycle Status: Active ; Vocabulary: SNOMED CT Peripheral vascular disease (SNOMED CT :8908980665 ) Name of Problem: Peripheral vascular disease ; Recorder: LILIANA CAMILO RN; Confirmation: Confirmed ; Classification: Patient Stated ; Code: 5864303950 ; Contributor System: HapBoo ; Last Updated: 04/19/2018 9:13 EDT ; Life Cycle Date: 04/19/2018 ; Life Cycle Status: Active ; Vocabulary: SNOMED CT Prostatitis// (SNOMED CT :14378912 ) Name of Problem: Prostatitis/ ; Recorder: RENETTA TRAYLOR RN; Confirmation: Confirmed ; Classification: Medical ; Code: 76373395 ; Contributor System: HapBoo ; Last Updated: 12/23/2018 11:47 EST ; Life Cycle Status: Active ; Vocabulary: SNOMED CT Renal calculus///HX (SNOMED CT :507959100 ) Name of Problem: Renal calculus///HX ; Recorder: RENETTA TRAYLOR RN; Confirmation: Confirmed ; Classification: Medical ; Code: 195645694 ; Contributor System: HapBoo ; Last Updated: 12/23/2018 11:50 EST ; Life Cycle Date: 12/23/2018 ; Life Cycle Status: Active ; Vocabulary: SNOMED CT Stented coronary artery (SNOMED CT :3701523826 ) Name of Problem: Stented coronary artery ; Recorder: RENETTA TRAYLOR RN; Confirmation: Confirmed ; Classification: Medical ; Code: 2592046191 ; Contributor System: HapBoo ; Last Updated: 12/23/2018 11:48 EST ; Life Cycle Date: 12/23/2018 ; Life Cycle Status: Active ; Vocabulary: SNOMED CT Diagnoses(Active) Chest pain Date: 11/26/2021 ; Diagnosis Type: Reason For Visit ; Confirmation: Complaint of ; Clinical Dx: Chest pain ; Classification: Medical ; Clinical Service: Non-Specified ; Code: PNED ; Probability: 0 ; Diagnosis Code: [id number] ED Height and Weight Height Source : Stated Height Entry Format : [place] Height, Feet : 5 ft(Converted to: 152 cm, 60 Inch) Height, Inches : 9 Inch(Converted to: 0 ft 9 Inch, 22.86 cm) Clinical Height : 175.26 cm Weight Source, ED : Critical estimated dosing weight Weight Entry Format : [place] Weight, Pounds : 174 lb Clinical Dosing Weight : 79.09 kg Body Surface Area (BSA) : 1.95 m2 Body Mass Index : 25.7 kg/m2 (HI) [place] Body Weight (IBW) : 69.73 kg Betsy Art RN - 11/26/2021 11:37 EST Pain Assessment Pain Assessment : Initial assessment Pain Scale Used : 0-10 Scale Betsy Art RN - 11/26/2021 11:37 EST Pain Scale Intensity : 5 Betsy Art RN - 11/26/2021 11:37 EST Image 4 - Images currently included in the form version of this document have not been included in the text rendition version of the form. Electronically signed by [facility] Conversion Director Data Cerner at 02/16/2023 3:46 PM CDT documented in this encounter Plan of Treatment Upcoming Encounters Date Type Department Care Team (Late st Contact Info) Description 03/10/2025 1:15 PM EDT Office Visit [facility] Cardiology - [place] [address] [place] [address] Tabby Mcallister PA-C [address] [facility] [address] [place] [address] documented as of this encounter Visit Diagnoses Not on filedocumented in this encounter Care Teams Motion Picture Critic Relationship Specialty Start Date End Date Stacy Moise PA PCP - General 03/02/23 documented as of this encounter
--- OUTSIDE RECORDS SUMMARY | 2024-09-30 17:10 | XMS_ITS | Encounter Summary ---
Author Organization [employer] Address [address] [place] [id number] Care Team Providers Care Director Consumer Name Role Phone Stacy Moise Primary Care Provider Encounter Details Date Type Department Care Team (Late st Contact Info) Description 10/27/2021 Transcribed Document [facility] [place] [facility] [place] [address] ProviderMireya MD [address] [place] [phone] Social History Tobacco Use Types Packs/Day Years Used Date Smoking Tobacco: Never Assessed Sex and Gender Information Value Date Recorded Sex Assigned at Not on file Legal Sex Male 5:25 PM CDT Gender Identity Not on file Sexual Orientation Not on file documented as of this encounter Miscellaneous Notes * Cerner Conversion Note - Mireya ProviderMD - 10/27/2021 11: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 ED Discharge Entered On: 10/27/2021 23:21 EST Performed On: 10/27/2021 23:20 EST by Giovanni Peters RN Discharge Process Patient Disposition : AMA/Elope/LWBS Personal Belongings With Patient : Yes IV Discontinued : No Giovanni Peters RN - 10/27/2021 23:20 EST LWBS/Elopement/AMA Patient Left Prior To Medical Screening : Unseen Giovanni Peters RN - 10/27/2021 23:20 EST documented in this encounter Plan of Treatment Upcoming Encounters Date Type Department Care Team (Late st Contact Info) Description 03/10/2025 1:15 PM EDT Office Visit [facility] Cardiology - [place] [address] [place] [address] Tabby Mcallister PA-Yuliana [address] [facility] [address] [place] [address] documented as of this encounter Visit Diagnoses Not on filedocumented in this encounter Care Teams Director Consumer Relationship Specialty Start Date End Date Stacy Moise PA PCP - General 03/02/23 documented as of this encounter
--- OUTSIDE RECORDS SUMMARY | 2024-09-30 17:10 | XMS_ITS | Encounter Summary ---
Author Organization [email or web address] Address [address] [place] [address] Care Team Providers Care Supervisor Brake Repair Name Role Phone Stacy Moise Primary Care Provider [phone] Encounter Details Date Type Department Care Team (Late st Contact Info) Description 08/28/2021 Transcribed Document [facility] [place] [address] ProviderMireya MD [address] [place] [address] [id number] Social History Tobacco Use Types Packs/Day Years Used Date Smoking Tobacco: Never Assessed Sex and Gender Information Value Date Recorded Sex Assigned at Not on file Legal Sex Male 5:25 PM CDT Gender Identity Not on file Sexual Orientation Not on file documented as of this encounter Miscellaneous Notes * Cerner Conversion Note - Mireya Osuna MD - 08/28/2021 6:43 PM CDT Patient: SCOTTIE CURRAN Age: 75 years Sex: Male : 1945 Associated Diagnoses: Jaw pain; Hypertension Author: SON DUMONT PA-C Basic Information Time seen: Date & time 08/28/2021 18:19:00. History source: Patient. Arrival mode: Private vehicle. History limitation: None. Additional information: Chief Complaint from Nursing Triage Note : Chief Complaint 08/28/2021 18:03 EDT Chief Complaint Pt presents with hypertension x 1 week. BP upon triage 196/82. Hx of hypertension. Takes Isosorbide BID and Bystolic. Repots throbbing on the left side of his jaw. Denies chest pain/SOB. Hx of cardiac stents. TIA 1 year ago. Takes Plavix daily. . History of Present Illness The patient presents with high blood pressure. The onset was chronic. The course/duration of symptoms is worsening and Patient reports past 3 days having left jaw pain. He check blood pressure today and it was elevated. They called [facility] and communicated with Ms. Mcallister LIDA and advised take extra dose imdur. He reports bp improved but left jaw pain did not. He was advised to go to ER. He reports no injury to jaw. Reports tenderness, no dental pain, no blurred vision. 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 He is seeing Dr. Brown and on gabapentin for this. . Risk factors consist of hypertension and coronary artery disease. Prior episodes: none. Associated symptoms: headache, denies chest pain, denies dizziness, denies abdominal pain, denies nausea, denies vomiting, denies shortness of breath and denies syncope. Review of Systems Constitutional symptoms: Negative except [...] except as documented in HPI. Neurologic symptoms: Headache, left jaw pain. Psychiatric symptoms: Negative except as documented in HPI. Endocrine symptoms: Negative except as documented in HPI. Hematologic/Lymphatic symptoms: Negative except as documented in HPI. Allergy/immunologic symptoms: Negative except as documented in HPI. Health Status Allergies: Allergic Reactions (Selected) No Known Medication Allergies. Past Medical/ Family/ Social History Medical history Reviewed as documented in chart. Cardiovascular: coronary artery disease, hypertension. Gastrointestinal: GI bleed. Surgical history: heart cath in 2017 at 72 Years. cardiac stents. left lower extremity vascular stent x2. hand surgery. S/P cholecystectomy ([id number]). colon resection. Cataract surgery ([id number]). Colonoscopy ([id number]). renal stent///2018. right leg balloon. back fusion [...] 03/11/2020 Smoking Status 10 or more cigarettes (1/ Comment: Pt states he smokes 12 cigarettes [...] Physical Examination Vital Signs Vital Signs/Vital Measures 08/28/2021 18:03 EDT Systolic Blood Pressure 196 mmHg HI Diastolic Blood Pressure 82 mmHg Temperature Source Oral Temperature Mode Fahrenheit Temperature, Fahrenheit 98.2 Deg F Clinical Temperature, C 36.8 Deg C Peripheral Pulse Rate 62 bpm Respiratory Rate 18 Breaths/Min Oxygen Saturation 98 % Oxygen Therapy Mode Room air . General: Alert, no acute distress. Skin: Warm, dry, pink. Head: Normocephalic, atraumatic. Neck: Supple, trachea midline, no tenderness. Eye: Pupils are equal, round and reactive to light, extraocular movements are intact, normal conjunctiva. Ears, nose, mouth and throat: Oral mucosa moist. Cardiovascular: Regular rate and rhythm, No murmur. Respiratory: Lungs are clear to auscultation, respirations are non-labored, breath sounds are equal. Chest wall: No tenderness, No deformity. Back: Nontender, Normal range of motion, Normal alignment. Musculoskeletal: Normal ROM, normal strength, no tenderness, no swelling. Gastrointestinal: Soft, Nontender, Non distended. Neurological: Alert and oriented to person, place, time, and situation, normal sensory observed, normal motor observed, normal speech observed, normal coordination observed. Psychiatric: Cooperative, appropriate mood & affect, normal judgment. Medical Decision Making Differential Diagnosis: Uncontrolled hypertension, asymptomatic hypertension, anxiety. Documents reviewed: Emergency department nurses' notes, emergency department records, prior records. Orders Include Previous Orders (Selected) Inpatient Orders Ordered Cardiac Monitoring: Discharge: ED Fall Risk Documented: Pulse Oximetry Continuous Monitoring: Ordered (Exam Completed) CR Chest 1 Vw Portable: Completed .Automated Differential: .RBC Morphology: Broset Violence Assessment: CBC w/ Auto Diff: CMP Comprehensive Metabolic Panel: CT Head WO: ED Adult Fall Risk Assessment: ED Adult Triage: ED C-SSRS: ED Clinical Reconciliation: ED elastic assembler: EKG: EKG: ProBNP: Saline Lock Insert: Troponin I Ultra: Troponin I Ultra: Tylenol with Codeine #3 oral tablet: 1 Tab, Oral, 1-Time. automatic glove turner and former: Normal sinus rhythm. Electrocardiogram: Time 08/28/2021 18:45:00, rate 58, normal sinus rhythm, No ST changes, no ectopy, normal WV & QRS intervals, EP Interp. Electrocardiogram: Time 08/28/2021 20:38:00, rate 53, normal sinus rhythm, No ST changes, no ectopy, normal WV & QRS intervals, EP Interp. Results review: All Results 08/28/2021 20:40 EDT Troponin I Ultra <0.015 ng/mL 08/28/2021 18:29 EDT Sodium Level 140 mmol/L Potassium Level 4.5 mmol/L Chloride Level 110 mmol/L Carbon Dioxide Level 23 mmol/L Anion Gap 12 Glucose Level 189 mg/dL HI Blood Urea Nitrogen 14 mg/dL Creatinine Level 1.00 mg/dL eGFR >60 mL/min/1.73m2 eGFR NonAfrican >60 mL/min/1.73m2 Bun/Creatinine 12.7 Calcium Level 8.9 mg/dL Protein Total 6.9 Gram/dL Albumin Level 3.5 Gram/dL Globulin 3.4 Gram/dL A/G Ratio 1.0 LOW Bilirubin Total 0.4 mg/dL Alk Phos 78 Units/Liter AST 30 Units/Liter ALT 29 Units/Liter Troponin I Ultra <0.015 ng/mL ProBNP 46 pg/mL WBC 10.0 K/uL HI RBC 4.60 Million/uL Hgb 13.2 g/dL LOW Hct 38.8 % LOW MCV 84.3 fL MCH 28.7 pg MCHC 34.0 Gram/dL Platelet Count 305 K/uL MPV 9.7 fL RDW 20.9 % HI Neut % 57.2 % Neut # 5.71 K/uL Lymph % 25.7 % Lymph # 2.56 x10(3)/uL [place] % 12.8 % HI [place] # 1.28 K/uL HI Eos % 3.3 % Eos # 0.33 x10(3)/uL Baso % 0.4 % Baso # 0.04 x10(3)/uL RBC Morphology Abnormal Anisocytosis 2+ Platelet Ct Estimate Adequate Slide Review Technologist IG# 0.06 x10(3)/uL HI IG% 0.60 % . Chest X-Ray: No acute disease process, interpretation by Emergency Physician. Radiology results: Radiology Results (Last 48 hours) [id number] -- 08/28/2021 17:21 CT Head WO (08/28/2021 19:03) Result: HEAD CTHISTORY: Headache. Hypertension.TECHNIQUE: Multiple axial CT images were performed from the foramenmagnum to the vertex without contrast. This study was performed withtechniques to keep radiation doses as low as reasonably achievable,(ALARA). Individualized dose reduction techniques using automatedexposure control or adjustment of mA and/or kV according to the patientsize were employed.COMPARISON: 05/05/2021FINDINGS: The ventricles are normal. There is no mass or shift ofmidline structures. There is no intracranial hemorrhage. No significantsinus or osseous abnormality seen.IMPRESSION: Unremarkable. . Reexamination/ Reevaluation Time: 08/28/2021 22:00:00 . Course: well controlled. Impression and Plan Diagnosis Jaw pain - Discharge, Emergency medicine, Medical Hypertension - Discharge, Emergency medicine, Medical Plan Condition: Improved, Stable. Disposition: Discharged Admit/Transfer/Discharge: Discharge (Order): Start: 08/28/2021 22:01 EDT, Discharge to: Home. Patient was given the following educational materials: Hypertension, Adult, Trigeminal Neuralgia. Follow up with: ; KOFI MCALLISTER Within 2 to 3 days; MALGORZATA BROWN Within 2 to 3 days Monitor blood pressure and heart rate for you to review with your Doctors. Return to ER if symptoms worse or different.. Counseled: Patient, Family, Regarding diagnosis, Regarding diagnostic results, Regarding treatment plan, Patient indicated understanding of instructions. Notes: I certify that the MLP/SENIOR WATER RESOURCES ENGINEER performed the services as delegated. , Discussed with Dr. Sams and agrees with plan of care.. documented in this encounter Plan of Treatment Upcoming Encounters Date Type Department Care Team (Late st Contact Info) Description 03/10/2025 1:15 PM EDT Office Visit [facility] Cardiology - [place] [address] [place] [address] Kofi Mcallister PA-C [address] [address] documented as of this encounter Visit Diagnoses Not on filedocumented in this encounter Care Teams Supervisor Brake Repair Relationship Specialty Start Date End Date Stacy Moise PA PCP - General 03/02/23 documented as of this encounter
--- OUTSIDE RECORDS SUMMARY | 2024-09-30 17:10 | XMS_ITS | Encounter Summary ---
Author Organization [facility] Address [address] [place] [address] Care Team Providers Care Industrial Management Teacher Name Role Phone Unavailable Primary Care Provider Unavailabl e Encounter Details Date Type Department Care Team (Late st Contact Info) Description 11/26/2021 Historic Encounter [facility] Radiology [address] [place] [address] Ceasar Brandon MD [facility] [address] [address] Social History Tobacco Use Types Packs/Day Years [...] Visit [facility] Cardiology - [place] [address] [place] [address] Tabby Mcallister PA-C 227 [facility] [address] [place] [address] documented as of this encounter Procedures Procedure Name Priority Date/Time Associated Diagnosis Comments TROPONIN I ULTRA ([facility] RACHAEL DATA CONV) Routine 11/26/2021 3:15 PM EST XR CHEST 1 VIEW PORTABLE / BEDSIDE STAT 11/26/2021 1:13 PM EST PROBNP ([facility] BKR DATA CONV Routine 11/26/2021 12:12 PM EST CBC W/ AUTO DIFF ([facility] C9 MediaR DATA CONV) Routine 11/26/2021 12:12 PM EST AUTOMATED DIFFERENTIAL ([facility] C9 Media DATA CONV) Routine 11/26/2021 12:12 PM EST MAGNESIUM LEVEL ([facility] C9 MediaR DATA CONV) Routine 11/26/2021 12:12 PM EST CMP COMPREHENSIVE METABOLIC PANEL ([facility] C9 Media DATA CONV) Routine 11/26/2021 12:12 PM EST PT/INR PROTHROMBIN TIME ([facility] C9 Media DATA CONV) Routine 11/26/2021 12:12 PM EST TROPONIN I ULTRA ([facility] C9 Media DATA CONV) Routine 11/26/2021 12:12 PM EST URINALYSIS UA RFLX MICROSCOPIC CULT IF IND ([facility] C9 MediaR DATA CONV) Routine 11/26/2021 11:57 AM EST URINALYSIS MICROSCOPIC ([facility] C9 Media DATA CONV) Routine 11/26/2021 11:57 AM EST documented in this encounter Results * TROPONIN I ULTRA ([facility] C9 Media DATA CONV) (11/26/2021 3:15 PM EST) TroponinI Ultra <0.015 0.015 - 0.045 ng/mL 11/26/2021 9:04 PM EST Comment: Troponin Result (ng/ml) ?* Interpretation 0.015 [...] to biotin interference with lab tests. Blood 11/26/2021 3:15 PM EST 11/26/2021 8:36 PM EST [facility] Historical Provider LAB BLOOD ORDERABLES Fi nal Result [facility] [address] [phone] * XR chest 1 view portable / bedside (11/26/2021 1:13 PM EST) Anatomical Region Laterality Modality X-Ray 11/26/2021 1:13 PM EST Narrative 11/26/2021 7:00 PM EST PORTABLE CHEST ?11/26/2021 11:56 AM HISTORY: Anterior chest pain. COMPARISON: August 28, 2021 FINDINGS: The heart is proper size. ??The mediastinum is unremarkable. Diffuse interstitial changes are probably chronic. ??The lungs are otherwise clear. ??There is no pneumothorax. The osseous structures ??are unremarkable. IMPRESSION: ??No acute cardiopulmonary process. Continued follow-up is recommended. Images reviewed, interpreted, and dictated by Dr. Abhijit Brandon. Transcribed by Buck Harden(R). I have personally viewed, interpreted and dictated the examination. I have read and agree with the above final transcribed report. Procedure Note Ceasar Brandon MD - 02/17/2023 PORTABLE CHEST 11/26/2021 11:56 AM HISTORY: Anterior chest pain. COMPARISON: August 28, 2021 FINDINGS: The heart is proper size. The mediastinum is unremarkable. Diffuse interstitial changes are probably chronic. The lungs are otherwise clear. There is no pneumothorax. The osseous structures are unremarkable. IMPRESSION: No acute cardiopulmonary process. Continued follow-up is recommended. Images reviewed, interpreted, and dictated by Dr. Abhijit Brandon. Transcribed by Ashtyn Wittich, R.T.(R). I have personally viewed, interpreted and dictated the examination. I have read and agree with the above final transcribed report. us A Jd Brandon MD IMG DIAGNOSTIC IMAGING OR DERABLES Final Result * (ABNORMAL) CBC W/ AUTO DIFF ([facility] BKR DATA CONV) (11/26/2021 12:12 PM EST) WBC 10.9(H) 3.6 - 9.5 K/uL 11/26/2021 5:18 PM EST RBC 4.55 4.20 - 5.70 Million/uL 11/26/2021 5:18 PM EST Hgb 14.0 13.5 - 17.3 g/dL 11/26/2021 5:18 PM EST Hct 40.6 40.1 - 51.0 % 11/26/2021 5:18 PM EST MCV 89.2 79.0 - 94.8 fL 11/26/2021 5:18 PM EST MCH 30.8 25.6 - 32.2 pg 11/26/2021 5:18 PM EST MCHC 34.5 32.2 - 36.5 Gram/dL 11/26/2021 5:18 PM EST RDW 12.7 11.7 - 14.9 % 11/26/2021 5:18 PM EST Platelet Count 334 163 - 369 K/uL 11/26/2021 5:18 PM EST MPV 9.6 9.4 - 12.4 fL 11/26/2021 5:18 PM EST Slide Review No 11/26/2021 5:18 PM EST Blood 11/26/2021 12:1 2 PM EST 11/26/2021 5:13 PM EST us [facility] Historical Provider LAB BLOOD ORDERABLES Fi nal Result [facility] [address] [place] [address], [facility] [phone] * TROPONIN I ULTRA ([facility] BKR DATA CONV) (11/26/2021 12:12 PM EST) TroponinI Ultra <0.015 0.015 - 0.045 ng/mL 11/26/2021 5:44 PM EST Comment: Troponin Result (ng/ml) ?* Interpretation 0.015 [...] to biotin interference with lab tests. Blood 11/26/2021 12:1 2 PM EST 11/26/2021 5:13 PM EST [facility] Provider LAB BLOOD ORDERABLES Fi nal Result Performing Organization Address [facility] Co de Phone Number [facility] [address] [phone] * (ABNORMAL) MAGNESIUM LEVEL ([facility] BKR DATA CONV) (11/26/2021 12:12 PM EST) Magnesium Level 2.7(H) 1.5 - 2.4 mg/dL 11/26/2021 5:44 PM EST Blood 11/26/2021 12:1 2 PM EST 11/26/2021 5:13 PM EST [facility] Provider LAB BLOOD ORDERABLES Fi nal Result Performing Organization Address [facility] Co de Phone Number [facility] [address] [phone] * PROBNP ([facility] BKR DATA CONV (11/26/2021 12:12 PM EST) ProBNP 57 0 - 450 pg/mL 11/26/2021 5:44 PM EST Blood 11/26/2021 12:1 2 PM EST 11/26/2021 5:13 PM EST [facility] Provider LAB BLOOD ORDERABLES Fi nal Result Performing Organization Address City/[facility]/ZIP Co de Phone Number [facility] [address] [phone] * PT/INR PROTHROMBIN TIME ([facility] BKR DATA CONV) (11/26/2021 12:12 PM EST) PT 10.9 9.2 - 12.0 Second(s) 11/26/2021 5:27 PM EST INR 1.0 0.9 - 1.2 11/26/2021 5:2 7 PM EST Blood 11/26/2021 12:1 2 PM EST 11/26/2021 5:13 PM EST [facility] Provider LAB BLOOD ORDERABLES Fi nal Result Performing Organization Address [facility] Co de Phone Number [facility] [address] [phone] * (ABNORMAL) AUTOMATED DIFFERENTIAL ([facility] BKR DATA CONV) (11/26/2021 12:12 PM EST) Neut% 63.2 34.0 - 71.0 % 11/26/2021 5:18 PM EST Lymph% 20.0 19.3 - 53.1 % 11/26/2021 5:18 PM EST [place]% 13.0(H) 3.0 - 9.0 % 11/26/2021 5:18 PM EST Eos% 2.6 0.0 - 7.0 % 11/26/2021 5:18 PM EST Baso% 0.5 0.0 - 1.5 % 11/26/2021 5:18 PM EST IG% 0.70(H) 0.00 - 0.60 % 11/26/2021 5:18 PM EST Neut# 6.88(H) 1.56 - 6.13 K/uL 11/26/2021 5:18 PM EST Lymph# 2.18 1.00 - 3.90 x10(3)/uL 11/26/2021 5:18 PM EST [place]# 1.42(H) 0.16 - 1.00 K/uL 11/26/2021 5:18 PM EST Eos# 0.28 0.00 - 0.80 x10(3)/uL 11/26/2021 5:18 PM EST Baso# 0.05 0.00 - 0.20 x10(3)/uL 11/26/2021 5:18 PM EST IG# 0.08(H) 0.00 - 0.05 x10(3)/uL 11/26/2021 5:18 PM EST Blood 11/26/2021 12:1 2 PM EST 11/26/2021 5:13 PM EST Narrative [facility] - 11/26/2021 5:18 PM EST Added by Discern Expert [facility] Historical Provider LAB BLOOD ORDERABLES Fi nal Result [facility] [address] [phone] * (ABNORMAL) CMP COMPREHENSIVE METABOLIC PANEL ([facility] BKR DATA CONV) (11/26/2021 12:12 PM EST) Sodium Level 140 136 - 146 mmol/L 11/26/2021 5:44 PM EST Potassium Level 3.6 3.5 - 5.1 mmol/L 11/26/2021 5:44 PM EST Chloride Level 109 102 - 112 mmol/L 11/26/2021 5:44 PM EST Carbon Dioxide Level 23 21 - 32 mmol/L 11/26/2021 5:44 PM EST Anion Gap 12 9 - 20 11/26/2021 5:44 PM EST Calcium Level 9.0 8.4 - 10.1 mg/dL 11/26/2021 5:44 PM EST Glucose Level 132(H) 74 - 106 mg/dL 11/26/2021 5:44 PM EST Comment: [employer] has become aware of sulfasalazine and sulfapyridine [...] administration of the drug. Blood Urea Nitrogen 20 7 - 22 mg/dL 11/26/2021 5:44 PM EST Creatinine Level 1.10 0.70 - 1.30 mg/dL 11/26/2021 5:44 PM EST Bun/Creatinine 18.2 8.0 - 20.0 11/26/2021 5:44 PM EST Albumin Level 3.7 3.4 - 5.0 Gram/dL 11/26/2021 5:44 PM EST Protein, Total 7.4 6.4 - 8.2 Gram/dL 11/26/2021 5:44 PM EST A/G Ratio 1.0(L) 1.1 - 2.5 11/26/2021 5:44 PM EST Alk Phos 79 27 - 136 Units/Lit er 11/26/2021 5:44 PM EST ALT 25 16 - 61 Units/Lit er 11/26/2021 5:44 PM EST Comment: [employer] has become aware of sulfasalazine and sulfapyridine [...] prior to administration of the drug. AST 12 5 - 37 Units/Lit er 11/26/2021 5:44 PM EST Comment: [employer] has become aware of sulfasalazine and sulfapyridine [...] to administration of the drug. Bilirubin, Total 0.3 0.2 - 1.2 mg/dL 11/26/2021 5:44 PM EST Comment: Total bilirubin results may be falsely elevated in patients undergoing treatment with eltrombopag (Promacta). Results should be correlated to clinical symptomology and additional laboratory testing including other markers for liver function, e.g., alanine aminotransferase, aspartate aminotransferase, alkaline phosphatase, and/or lactate dehydrogenase. Globulin 3.7 1.5 - 4.5 Gram/dL 11/26/2021 5:44 PM EST eGFR >60 >=60 mL/min/1. 73m2 11/26/2021 5:47 PM EST Comment: GFR <60 suggests chronic kidney disease, if found over 3 month period. GFR <15 indicates renal failure. eGFR NonAfrican >60 >=60 mL/min/1. 73m2 11/26/2021 5:47 PM EST Comment: GFR <60 suggests chronic kidney disease, if found over 3 month period. GFR <15 indicates renal failure. Blood 11/26/2021 12:1 2 PM EST 11/26/2021 5:13 PM EST [facility] Provider LAB BLOOD ORDERABLES Fi nal Result Performing Organization Address [facility]/ZIP Co de Phone Number [facility] [address] [phone] * URINALYSIS MICROSCOPIC ([facility] BKR DATA CONV) (11/26/2021 11:57 AM EST) 11/26/2021 11:5 7 AM EST 11/26/2021 5:39 PM EST Narrative [facility] - 11/26/2021 6:04 PM EST Urine Microscopic added by System. [facility] Provider URINE ORDERABLES Edited Result - Final Performing Organization Address [facility] Co de Phone Number [facility] [address] [phone] * (ABNORMAL) URINALYSIS UA RFLX MICROSCOPIC CULT IF IND ([facility] BKR DATA CONV) (11/26/2021 11:57 AM EST) Urine Type. U CleanCatch 11/26/2021 5:39 PM EST Urine Color Yellow 11/26/2021 5:50 PM EST Comment: Substances that cause HIGHLY abnormal urine color may affect the accuracy of URINE CHEMISTRY reagent strip results due to colorimetric interference. ??These include visible levels of blood or bilirubin, drugs containing dyes, and some antibiotics such as nitrofurantoin and riboflavin which can cause markedly abnormal urine coloration. Urine Appearance Cloudy(A) 11/26/19 5:50 PM EST Urine Specific Elsie 1.018 1.005 - 1.030 11/26/2021 5:50 PM EST Urine pH Dipstick 6.0 6.0 - 8.0 11/26/2021 5:50 PM EST Urine Leukocyte Esterase Negative Negative 11/26/2021 5:50 PM EST Urine Nitrite Negative Negative 11/26/2021 5:50 PM EST Urine Protein Dipstick Negative Negative 11/26/2021 5:50 PM EST Comment:Use of urine preserv atives may elevate protein results and reduce bilirubin, blood and nitrite results. Urine Glucose Dipstick Negative Negative 11/26/2021 5:50 PM EST Urine Ketones Dipstick Negative Negative 11/26/2021 5:50 PM EST Urine Urobilinogen Dipstick 1.0(A) EU/dL 11/26/2021 5:50 PM EST Urine Bilirubin Dipstick Negative Negative 11/26/2021 5:50 PM EST Urine Blood Dipstick Negative Negative 11/26/2021 5:50 PM EST UA Indications NA 11/26/2021 6:14 PM EST Urine Culture if Indicated Not Indicated 11/26/2021 6:14 PM EST Comment: Urine Culture not ordered due to one or more of the following conditions exist: *Patient Age >= 2 *UA WBC < 10 *The always cultured reason chosen was not: Urological Procedure Immunosuppressed Organ Donor 11/26/2021 11:5 7 AM EST 11/26/2021 5:39 PM EST Narrative [facility] - 11/26/2021 6:14 PM EST Urinalysis UA Rflx Microscopic Cult if Ind will reflex to a culture if: Microscopic ??>= 10 WBC Patent age < 2 years old Urinalysis UA Rflx Microscopic Cult if Ind order UC Indications contains (Always Cultured) Urological Procedure(Always Cultured) Immunosuppressed(Always Cultured) Organ Donor(Always Cultured) [facility] Historical Provider URINE ORDERABLES Final Result [facility] [address] [phone] documented in this encounter Visit Diagnoses Not on filedocumented in this encounter
--- OUTSIDE RECORDS SUMMARY | 2024-09-30 17:10 | XMS_ITS | Encounter Summary ---
Author Organization [facility] [employer] Address [address] [facility] [place] [address] Care Team Providers Care Grease And Tallow Pumper Name Role Phone Stacy Moise Primary Care Provider [phone] Encounter Details Date Type Department Care Team (Late st Contact Info) Description 05/05/2021 Transcribed Document [facility] [place] [facility] [place] [address] ProviderMireya MD [address] [place] [id number] Social History Tobacco Use Types Packs/Day Years Used Date Smoking Tobacco: Never Assessed Sex and Gender Information Value Date Recorded Sex Assigned at Not on file Legal Sex Male 5:25 PM CDT Gender Identity Not on file Sexual Orientation Not on file documented as of this encounter Miscellaneous Notes * Cerner Conversion Note - Mireya ProviderMD - 05/05/2021 12:36 PM CDT Broset Violence Assessment Entered On: 05/05/2021 12:52 EDT Performed On: 05/05/2021 12:52 EDT by BOLA RIOS RN Broset Violence Assessment Broset Violence Checklist of Symptoms : None Broset Violence Symptoms Subtotal : 0 Broset Violence Symptoms Indicator : Low risk (0) Broset Interventions : [place] precautions for safety used BOLA RIOS RN - 05/05/2021 12:52 EDT documented in this encounter Plan of Treatment Upcoming Encounters Date Type Department Care Team (Late st Contact Info) Description 03/10/2025 1:15 PM EDT Office Visit [facility] Cardiology - [place] [address] [place] [address] Tabby Mcallister PA-C [address] [facility] [address] [place] [address] documented as of this encounter Visit Diagnoses Not on filedocumented in this encounter Care Teams Grease And Tallow Pumper Relationship Specialty Start Date End Date Stacy Moise PA PCP - General 03/02/23 documented as of this encounter
--- OUTSIDE RECORDS SUMMARY | 2024-09-30 17:10 | XMS_ITS | Encounter Summary ---
Author Organization [employer] Address [address] [place] [address] Care Team Providers Care Carding Doubler Name Role Phone Stacy Moise Primary Care Provider Encounter Details Date Type Department Care Team (Late st Contact Info) Description 01/28/2021 Transcribed Document [facility] [place] [address] ProviderMireya MD [address] [place] [id number] Social History Tobacco Use Types Packs/Day Years Used Date Smoking Tobacco: Never Assessed Sex and Gender Information Value Date Recorded Sex Assigned at Not on file Legal Sex Male 5:25 PM CDT Gender Identity Not on file Sexual Orientation Not on file documented as of this encounter Miscellaneous Notes * Cerner Conversion Note - Mireya Osuna MD - 01/28/2021 11:08 AM CDT Patient: SCOTTIE CURRAN Age: 75 years Sex: Male : 1945 Associated Diagnoses: None Author: SHYANN CLEANING PA-C Postoperative Information The patient presents for a fluoroscopically guided procedure requiring sedation. Review of Systems Constitutional: Negative. Eye: Negative. Ear/Nose/Mouth/Throat: Negative. Respiratory: Negative. Cardiovascular: Negative. Gastrointestinal: Negative. Genitourinary: Negative. Hematology/Lymphatics: Negative. Endocrine: Negative. Immunologic: Negative. Musculoskeletal: Negative. Integumentary: Negative. Neurologic: Negative. Psychiatric: Negative. All other systems are negative Health Status Allergies: Allergic Reactions (Selected) No Known Medication Allergies, Allergies (1) Active Reaction No Known Medication Allergies None Documented Current medications: (Selected) Inpatient Medications Ordered Sodium Chloride 0.9% intravenous solution 1,000 mL: 70 mL/Hr, IntraVENous Zofran: 4 mg, IV Push, 1-Time, PRN: Nausea/Vomiting Documented Medications Documented Aspir 81: 81 mg, [...] Instructions ZyrTEC 10 mg, PRN, Oral, Daily , Medications (2) Active Scheduled: (0) Continuous: (1) NaCl 0.9% 1,000 mL 1,000 mL, IntraVENous, 70 mL/Hr PRN: (1) ondansetron 4 mg/2 mL inj 4 mg 2 mL, IV Push, 1-Time Problem list: All Problems Acquired hypothyroidism / SNOMED CT 554614922 / Confirmed Anemia (hx of) / SNOMED CT 551031180 / Confirmed Angina (hx of, Last had in 2017) / SNOMED CT 278943268 / Confirmed Aortic valve disease / SNOMED CT 42139019 / Confirmed Arthritis / SNOMED CT 2768201 / Confirmed At risk for sleep apnea / IMO 03253522 / Confirmed Back pain / SNOMED CT 5602209660 / Confirmed Colorectal surgery / SNOMED CT 2626047875 / Confirmed CAD (coronary artery disease) / SNOMED CT 19961715 / Confirmed Diabetes / SNOMED CT 997190398 / Confirmed Disorder of prostate / SNOMED CT 94364648 / Confirmed Diverticulitis///HX / SNOMED CT 454194983 / Confirmed Dizzy spells (occasional) / SNOMED CT 340576014 / Confirmed GERD - Gastro-esophageal reflux disease / SNOMED CT 6072576825 / Confirmed Hard of hearing / SNOMED CT 742618368 / Confirmed Murmur / SNOMED CT 800837954 / Confirmed High cholesterol / SNOMED CT 74296476 / Confirmed HTN (hypertension) / SNOMED CT 2810354129 / Confirmed Claudication / SNOMED CT 367228465 / Confirmed Peripheral vascular disease / SNOMED CT 1922364676 / Confirmed Prostatitis///12/2018 / SNOMED CT 60230167 / Confirmed Renal calculus///HX / SNOMED CT 990274321 / Confirmed Has been smoking for 30 years / SNOMED CT 843828563 / Confirmed Cervical spinal stenosis / SNOMED CT 518735731 / Confirmed Fatty liver / SNOMED CT 097814370 / Confirmed Stented coronary artery / SNOMED CT 1311574922 / Confirmed Inactive: Prediabetes / SNOMED CT 1501224347 Resolved: Cataract///extraction / SNOMED CT 906697226 Resolved: Gallbladder disease s/p cholecystectomy / SNOMED CT 642306821 Resolved: Left hip pain//left leg (hx of) / SNOMED CT 78676379, Active Problems (26) Acquired hypothyroidism Anemia (hx [...] disease Prostatitis///12/2018 Renal calculus///HX Stented coronary artery Histories Procedure history: heart cath in 2017 at 72 Years. cardiac stents. left lower extremity vascular stent x2. hand surgery. S/P cholecystectomy ([id number]). colon resection. Cataract surgery ([id number]). Colonoscopy (948530162). renal stent///2018. right leg balloon. back fusion lumbar 5 S1 2-2019. neck surgery. Social History Social & Psychosocial Habits Alcohol 11/18/2016 Alcohol [...] 55 Month Tobacco Last Used TODAY . Physical Examination VS/Measurements Vital Signs/Vital Measures 01/28/2021 9:21 EDT Systolic Blood Pressure 140 mmHg Diastolic Blood Pressure 63 mmHg Temperature Source Temporal artery scanning Temperature Mode Fahrenheit Temperature, Fahrenheit 97.9 Deg F Clinical Temperature, C 36.6 Deg C Heart Rate, Apical 61 bpm Oxygen Saturation 99 % Oxygen Therapy Mode Room air Oxygen Therapy Mode Room air , Measurements from flowsheet : Measurements 01/28/2021 9:21 EDT Height Source Stated Height Entry Format [place] Height/Length, SUDANESE (ft) 5 ft Height/Length SUDANESE 9 Inch CLINICALHEIGHT 175.26 cm Grover Body Weight 70 kg Weight Source Standing scale Weight Entry Format [place] Weight Greek lb 170 lb CLINICALWEIGHT 77.27 kg Body Surface Area (BSA) 1.93 m2 Body Mass Index 25.2 kg/m2 HI General: No acute distress. Respiratory: Lungs are clear to auscultation. Cardiovascular: Normal rate, No murmur. Gastrointestinal: Non-distended. Neurologic: Alert. Impression and Plan Proceed with ordered procedure/exam . documented in this encounter Plan of Treatment Upcoming Encounters Date Type Department Care Team (Late st Contact Info) Description 03/10/2025 1:15 PM EDT Office Visit [facility] Cardiology - [address] [address] Tabby Mcallister PA-C [address] [place] [phone] documented as of this encounter Visit Diagnoses Not on filedocumented in this encounter Care Teams Carding Doubler Relationship Specialty Start Date End Date Stacy Moise PA PCP - General 03/02/23 documented as of this encounter
--- OUTSIDE RECORDS SUMMARY | 2024-09-30 17:10 | XMS_ITS | Encounter Summary ---
Author Organization [employer] Address [address] [address] Care Team Providers Care Sample Clerk Name Role Phone Sudhir Payton Primary Care Provider [phone] Encounter Details Date Type Department Care Team (Late st Contact Info) Description 05/05/2021 Transcribed Document [facility] [place] [facility] [place] [address] ProviderMireya MD [address] [place] [id number] Social History Tobacco Use Types Packs/Day Years Used Date Smoking Tobacco: Never Assessed Sex and Gender Information Value Date Recorded Sex Assigned at Not on file Legal Sex Male 5:25 PM CDT Gender Identity Not on file Sexual Orientation Not on file documented as of this encounter Miscellaneous Notes * Cerner Conversion Note - Mireya Osuna MD - 05/05/2021 2:21 PM CDT [facility] [place] [address] SCOTTIE CURRAN [facility] :1945 Visit Time:05/05/2021 Your Visit Summary Your Care Team Primary Provider: MARTINA FULLER PA-C Secondary Provider: Your Diagnosis Headache Headache Medical Information You may obtain a copy [...] When Within 2 to 3 days Comments Follow-up with your neurologist for reevaluation and management of your recurrent headaches. Return to ED if symptoms worsen. Where: [address] [facility] [address] [place] [address]- Business (1) Follow Up with SUDHIR PAYTON When Within 2 to 3 days Where: [address] [place] [address] Business (1) Allergies No Known Medication Allergies Immunizations [...] This Visit (last charted value for your 05/05/2021 visit) Hematology 05/05/2021 1:55 PM WBC: 10.6 K/uL -- Normal range between ( 3.6 and 9.5 ) RBC: 4.14 Million/uL -- Normal range between ( 4.20 and 5.70 ) Hct: 31.6 % -- Normal range between ( 40.1 and 51.0 ) Hgb: 9.6 g/dL -- Normal range between ( 13.5 and 17.3 ) Platelet Count: 442 K/uL -- Normal range between ( 163 and 369 ) MCH: 23.2 pg -- Normal range between ( 25.6 and 32.2 ) MCHC: 30.4 Gram/dL -- Normal range between ( 32.2 and 36.5 ) MCV: 76.3 fL -- Normal range between ( 79.0 and 94.8 ) Slide Review: No Eos %: 3.3 % -- Normal range between ( 0.0 and 7.0 ) Gray #: 1.32 K/uL -- Normal range between ( 0.16 and 1.00 ) Eos #: 0.35 x10(3)/uL -- Normal range between ( 0.00 and 0.80 ) Gray %: 12.5 % -- Normal range between ( 3.0 and 9.0 ) Baso %: 0.5 % -- Normal range between ( 0.0 and 1.5 ) Baso #: 0.05 x10(3)/uL -- Normal range between ( 0.00 and 0.20 ) RDW: 14.9 % -- Normal range between ( 11.7 and 14.9 ) Neut %: 60.2 % -- Normal range between ( 34.0 and 71.0 ) Neut #: 6.37 K/uL -- Normal range between ( 1.56 and 6.13 ) Lymph %: 22.9 % -- Normal range between ( 19.3 and 53.1 ) Lymph #: 2.42 x10(3)/uL -- Normal range between ( 1.00 and 3.90 ) MPV: 9.4 fL -- Normal range between ( 9.4 and 12.4 ) IG#: 0.06 x10(3)/uL -- Normal range between ( 0.00 and 0.05 ) IG%: 0.60 % -- Normal range between ( 0.00 and 0.60 ) General Chemistry 05/05/2021 1:30 PM Creatinine Level: 1.20 mg/dL -- Normal range between ( 0.70 and 1.30 ) Sodium Level: 139 mmol/L -- Normal range between ( 136 and 146 ) Potassium Level: 3.9 mmol/L -- Normal range between ( 3.5 and 5.1 ) Chloride Level: 109 mmol/L -- Normal range between ( 102 and 112 ) Carbon Dioxide Level: 24 mmol/L -- Normal range between ( 21 and 32 ) Anion Gap: 10 -- Normal range between ( 9 and 20 ) Bun/Creatinine: 15.0 -- Normal range between ( 8.0 and 20.0 ) Calcium Level: 8.7 mg/dL -- Normal range between ( 8.4 and 10.1 ) eGFR : >60 mL/min/1.73m2 eGFR NonAfrican: 59 mL/min/1.73m2 Glucose Level: 123 mg/dL -- Normal range between ( 74 and 106 ) Blood Urea Nitrogen: 18 mg/dL -- Normal range between ( 7 and 22 ) Computed Tomography 05/05/2021 1:[address] Head WO: CT Head WO Education [employer] Migraine Headache A migraine headache is a very strong throbbing pain on one side or both sides of your head. This type of headache can also cause other symptoms. It can last from 4 hours to 3 days. Talk with your doctor about what things may bring on (trigger) this condition. What are the causes? The exact cause of this condition is not known. This condition may be triggered or caused by: ??? Drinking alcohol. ??? Smoking. ??? Taking medicines, such as: ? Medicine used to treat chest pain (nitroglycerin). ? control pills. ? Estrogen. ? Some blood pressure medicines. ??? Eating or drinking certain products. ??? Doing physical activity. Other things that may trigger a migraine headache include: ??? Having a menstrual period. ??? . ??? Hunger. ??? Stress. ??? Not getting enough sleep or getting too much sleep. ??? Weather changes. ??? Tiredness (fatigue). What increases the risk? Being 25???55 years old. ??? Being female. ??? Having a family history of migraine headaches. ??? Being . ??? Having depression or anxiety. ??? Being very overweight. What are the signs or symptoms? A throbbing pain. This pain may: ? Happen in any area of the head, such as on one side or both sides. ? Make it hard to do daily activities. ? Get worse with physical activity. ? Get worse around bright lights or loud noises. ??? Other symptoms may include: ? Feeling sick to your stomach (nauseous). ? Vomiting. ? Dizziness. ? Being sensitive to bright lights, loud noises, or smells. ??? Before you get a migraine headache, you may get warning signs (an aura). An aura may include: ? Seeing flashing lights or having blind spots. ? Seeing bright spots, halos, or zigzag lines. ? Having tunnel vision or blurred vision. ? Having numbness or a tingling feeling. ? Having trouble talking. ? Having weak muscles. ??? Some people have symptoms after a migraine headache (postdromal phase), such as: ? Tiredness. ? Trouble thinking (concentrating). How is this treated? Taking medicines that: ? Relieve pain. ? Relieve the feeling of being sick to your stomach. ? Prevent migraine headaches. ??? Treatment may also include: ? Having acupuncture. ? Avoiding foods that bring on migraine headaches. ? Learning ways to control your body functions (biofeedback). ? Therapy to help you know and deal with negative thoughts (cognitive behavioral therapy). Follow these instructions at home: Medicines ??? Take ralp-hwq-czvietl and prescription medicines only as told by your doctor. ??? Ask your doctor if the medicine prescribed to you: ? Requires you to avoid driving or using heavy machinery. ? Can cause trouble pooping (constipation). You may need to take these steps to prevent or treat trouble pooping: ? Drink enough fluid to keep your pee (urine) pale yellow. ? Take potb-zqt-uoitndv or prescription medicines. ? Eat foods that are high in fiber. These include beans, whole grains, and fresh fruits and vegetables. ? Limit foods that are high in fat and sugar. These include fried or sweet foods. Lifestyle ??? Do not drink alcohol. ??? Do not use any products that contain nicotine or tobacco, such as cigarettes, e-cigarettes, and chewing tobacco. If you need help quitting, ask your doctor. ??? Get at least 8 hours of sleep every night. ??? Limit and deal with stress. General instructions ??? Keep a journal to find out what may bring on your migraine headaches. For example, write down: ? What you eat and drink. ? How much sleep you get. ? Any change in what you eat or drink. ? Any change in your medicines. ??? If you have a migraine headache: ? Avoid things that make your symptoms worse, such as bright lights. ? It may help to lie down in a dark, quiet room. ? Do not drive or use heavy machinery. ? Ask your doctor what activities are safe for you. ??? Keep all follow-up visits as told by your doctor. This is important. Contact a doctor if: ??? You get a migraine headache that is different or worse than others you have had. ??? You have more than 15 headache days in one month. Get help right away if: ??? Your migraine headache gets very bad. ??? Your migraine headache lasts longer than 72 hours. ??? You have a fever. ??? You have a stiff neck. ??? You have trouble seeing. ??? Your muscles feel weak or like you cannot control them. ??? You start to lose your balance a lot. ??? You start to have trouble walking. ??? You pass out (faint). ??? You have a seizure. Summary ??? A migraine headache is a very strong throbbing pain on one side or both sides of your head. These headaches can also cause other symptoms. ??? This condition may be treated with medicines and changes to your lifestyle. ??? Keep a journal to find out what may bring on your migraine headaches. ??? Contact a doctor if you get a migraine headache that is different or worse than others you have had. ??? Contact your doctor if you have more than 15 headache days in a month. This information is not intended to replace advice given to you by your health care provider. Make sure you discuss any questions you have with your health care provider. Document Revised: 02/10/2020 Document Reviewed: 12/01/2019 [employer] Patient Education ?? 2020 [employer] Emergency Awareness and Preventative Care STROKE is [...] Assistance with quitting is available by contacting 5-630-UEIN-NOW. This is a free resource providing counseling, support, and referral. Or you may contact your personal physician. [employer] Suicide Prevention Lifeline: The National Suicide Prevention [...] was given the opportunity to ask questions. Patient/Configuration Manager Name: Patient/Configuration Manager Signature: Relationship to Patient: Clinician/Hospital Configuration Manager Signature: Please Provide a Telephone Number Where You Can Be Reached: Is it Permissible To Leave a Message? Date: Electronically signed by Katie Pizarro Conversion Veterinarian Laboratory Animal Care Cerner at 02/16/2023 3:45 PM CDT documented in this encounter Plan of Treatment Upcoming Encounters Date Type Department Care Team (Late st Contact Info) Description 03/10/2025 1:15 PM EDT Office Visit [facility] Cardiology - [place] [address] [place] [address] Tabby Mcallister PA-C [address] [facility] [address] [place] [address] documented as of this encounter Visit Diagnoses Not on filedocumented in this encounter Care Teams Sample Clerk Relationship Specialty Start Date End Date Sudhir Payton PA PCP - General 03/02/23 documented as of this encounter
--- OUTSIDE RECORDS SUMMARY | 2024-09-30 17:10 | XMS_ITS | Encounter Summary ---
Author Organization [employer] Address [address] [place] [address] Care Team Providers [employer] Name Role Phone Sudhir Payton Primary Care Provider [phone] Encounter Details Date Type Department Care Team (Late st Contact Info) Description 11/26/2021 Transcribed Document [facility] Family [place] [address] ProviderMireya MD [address] [place] [id number] Social History Tobacco Use Types Packs/Day Years Used Date Smoking Tobacco: Never Assessed Sex and Gender Information Value Date Recorded Sex Assigned at Not on file Legal Sex Male 5:25 PM CDT Gender Identity Not on file Sexual Orientation Not on file documented as of this encounter Miscellaneous Notes * Cerner Conversion Note - Mireya Osuna MD - 11/26/2021 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 Today we do not see any evidence of heart attack on either the EKG or the blood work. We are still happy to see you at any time should you develop chest pain that does not relent with nitroglycerin. Where: [address] [place] [address]- Business (1) Follow Up with SUDHIR PAYTON When Within 2 to 3 days Where: [address] [place] [address]- Business (1) Allergies No Known Medication Allergies [...] This Visit (last charted value for your 11/26/2021 visit) Hematology 11/26/2021 12:12 PM WBC: 10.9 K/uL -- Normal range between ( 3.6 and 9.5 ) RBC: 4.55 Million/uL -- Normal range between ( 4.20 and 5.70 ) Hct: 40.6 % -- Normal range between ( 40.1 and 51.0 ) Hgb: 14.0 g/dL -- Normal range between ( 13.5 and 17.3 ) Platelet Count: 334 K/uL -- Normal range between ( 163 and 369 ) MCH: 30.8 pg -- Normal range between ( 25.6 and 32.2 ) MCHC: 34.5 Gram/dL -- Normal range between ( 32.2 and 36.5 ) MCV: 89.2 fL -- Normal range between ( 79.0 and 94.8 ) Slide Review: No Eos %: 2.6 % -- Normal range between ( 0.0 and 7.0 ) [place] #: 1.42 K/uL -- Normal range between ( 0.16 and 1.00 ) Eos #: 0.28 x10(3)/uL -- Normal range between ( 0.00 and 0.80 ) [place] %: 13.0 % -- Normal range between ( 3.0 and 9.0 ) Baso %: 0.5 % -- Normal range between ( 0.0 and 1.5 ) Baso #: 0.05 x10(3)/uL -- Normal range between ( 0.00 and 0.20 ) RDW: 12.7 % -- Normal range between ( 11.7 and 14.9 ) Neut %: 63.2 % -- Normal range between ( 34.0 and 71.0 ) Neut #: 6.88 K/uL -- Normal range between ( 1.56 and 6.13 ) Lymph %: 20.0 % -- Normal range between ( 19.3 and 53.1 ) Lymph #: 2.18 x10(3)/uL -- Normal range between ( 1.00 and 3.90 ) MPV: 9.6 fL -- Normal range between ( 9.4 and 12.4 ) IG#: 0.08 x10(3)/uL -- Normal range between ( 0.00 and 0.05 ) IG%: 0.70 % -- Normal range between ( 0.00 and 0.60 ) Urinalysis 11/26/2021 1:04 PM Specimen Type, Urine POC: Urine 11/26/2021 11:57 AM Urine Nitrite: Negative Urine Leukocyte Esterase: Negative Ur Epithelial Cells: 0-2 /HPF Urine Appearance: Cloudy Urine Glucose Dipstick: Negative Urine Blood Dipstick: Negative Urine Urobilinogen Dipstick: 1.0 EU/dL Urine Protein Dipstick: Negative Urine Color: Yellow Ur WBC: 0-2 /HPF Urine Ketones Dipstick: Negative Ur Mucous: Trace Urine pH Dipstick: 6.0 -- Normal range between ( 6.0 and 8.0 ) Urine Bilirubin Dipstick: Negative Urine Specific [place]: 1.018 -- Normal range between ( 1.005 and 1.030 ) Urine Type.: U CleanCatch Urine Culture if Indicated: Not Indicated General Chemistry 11/26/2021 12:12 PM Creatinine Level: 1.10 mg/dL -- Normal range between ( 0.70 and 1.30 ) Sodium Level: 140 mmol/L -- Normal range between ( 136 and 146 ) Potassium Level: 3.6 mmol/L -- Normal range between ( 3.5 and 5.1 ) Chloride Level: 109 mmol/L -- Normal range between ( 102 and 112 ) Carbon Dioxide Level: 23 mmol/L -- Normal range between ( 21 and 32 ) Anion Gap: 12 -- Normal range between ( 9 and 20 ) Bilirubin Total: 0.3 mg/dL -- Normal range between ( 0.2 and 1.2 ) A/G Ratio: 1.0 -- Normal range between ( 1.1 and 2.5 ) ALT: 25 Units/Liter -- Normal range between ( 16 and 61 ) AST: 12 Units/Liter -- Normal range between ( 5 and 37 ) Globulin: 3.7 Gram/dL -- Normal range between ( 1.5 and 4.5 ) Alk Phos: 79 Units/Liter -- Normal range between ( 27 and 136 ) Bun/Creatinine: 18.2 -- Normal range between ( 8.0 and 20.0 ) Calcium Level: 9.0 mg/dL -- Normal range between ( 8.4 and 10.1 ) eGFR : >60 mL/min/1.73m2 eGFR NonAfrican: >60 mL/min/1.73m2 Glucose Level: 132 mg/dL -- Normal range between ( 74 and 106 ) Magnesium Level: 2.7 mg/dL -- Normal range between ( 1.5 and 2.4 ) Blood Urea Nitrogen: 20 mg/dL -- Normal range between ( 7 and 22 ) Protein Total: 7.4 Gram/dL -- Normal range between ( 6.4 and 8.2 ) Albumin Level: 3.7 Gram/dL -- Normal range between ( 3.4 and 5.0 ) Cardiac Specific Markers 11/26/2021 3:15 PM Troponin I Ultra: <0.015 ng/mL -- Normal range between ( 0.015 and 0.045 ) 11/26/2021 12:12 PM ProBNP: 57 pg/mL -- Normal range between ( 0 and 450 ) Coagulation 11/26/2021 12:12 PM INR: 1.0 -- Normal range between ( 0.9 and 1.2 ) PT: 10.9 Second(s) -- Normal range between ( 9.2 and 12.0 ) Diagnostic Radiology 11/26/2021 12:16 PM CR Chest 1 Vw Portable: CR Chest 1 Vw Portable Education [employer] Nonspecific Chest Pain, Adult Chest pain can be caused by many different conditions. It can be caused by a condition that is life-threatening and requires treatment right away. It can also be caused by something that is not life-threatening. If you have chest pain, it can be hard to know the difference, so it is important to get help right away to make sure that you do not have a serious condition. Some life-threatening causes of chest pain include: ??? Heart attack. ??? A tear in the body's main blood vessel (aortic dissection). ??? Inflammation around your heart (pericarditis). ??? A problem in the lungs, such as a blood clot (pulmonary embolism) or a collapsed lung (pneumothorax). Some non life-threatening causes of chest pain include: ??? Heartburn. ??? Anxiety or stress. ??? Damage to the bones, muscles, and cartilage that make up your chest wall. ??? Pneumonia or bronchitis. ??? Shingles infection (varicella-zoster virus). Chest pain can feel like: ??? Pain or discomfort on the surface of your chest or deep in your chest. ??? Crushing, pressure, aching, or squeezing pain. ??? Burning or tingling. ??? Dull or sharp pain that is worse when you move, cough, or take a deep breath. ??? Pain or discomfort that is also felt in your back, neck, jaw, shoulder, or arm, or pain that spreads to any of these areas. Your chest pain may come and go. It may also be constant. Your health care provider will do lab tests and other studies to find the cause of your pain. Treatment will depend on the cause of your chest pain. Follow these instructions at home: Medicines ??? Take [id number] and prescription medicines only as told by your health care provider. ??? If you were prescribed an antibiotic, take it as told by your health care provider. Do not stop taking the antibiotic even if you start to feel better. Lifestyle ??? Rest as directed by your health care provider. ??? Do not use any products that contain nicotine or tobacco, such as cigarettes and e-cigarettes. If you need help quitting, ask your health care provider. ??? Do not drink alcohol. ??? Make healthy lifestyle choices as recommended. These may include: ? Getting regular exercise. Ask your health care provider to suggest some activities that are safe for you. ? Eating a heart-healthy diet. This includes plenty of fresh fruits and vegetables, whole grains, low-fat (lean) protein, and low-fat dairy products. A dietitian can help you find healthy eating options. ? Maintaining a healthy weight. ? Managing any other health conditions you have, such as high blood pressure (hypertension) or diabetes. ? Reducing stress, such as with yoga or relaxation techniques. General instructions ??? Pay attention to any changes in your symptoms. Tell your health care provider about them or any new symptoms. ??? Avoid any activities that cause chest pain. ??? Keep all follow-up visits as told by your health care provider. This is important. This includes visits for any further testing if your chest pain does not go away. Contact a health care provider if: ??? Your chest pain does not go away. ??? You feel depressed. ??? You have a fever. Get help right away if: ??? Your chest pain gets worse. ??? You have a cough that gets worse, or you cough up blood. ??? You have severe pain in your abdomen. ??? You faint. ??? You have sudden, unexplained chest discomfort. ??? You have sudden, unexplained discomfort in your arms, back, neck, or jaw. ??? You have shortness of breath at any time. ??? You suddenly start to sweat, or your skin gets clammy. ??? You feel nausea or you vomit. ??? You suddenly feel lightheaded or dizzy. ??? You have severe weakness, or unexplained weakness or fatigue. ??? Your heart begins to beat quickly, or it feels like it is skipping beats. These symptoms may represent a serious problem that is an emergency. Do not wait to see if the symptoms will go away. Get medical help right away. Call your local emergency services (911 in the [place] Do not drive yourself to the hospital. Summary ??? Chest pain can be caused by a condition that is serious and requires urgent treatment. It may also be caused by something that is not life-threatening. ??? If you have chest pain, it is very important to see your health care provider. Your health care provider may do lab tests and other studies to find the cause of your pain. ??? Follow your health care provider's instructions on taking medicines, making lifestyle changes, and getting emergency treatment if symptoms become worse. ??? Keep all follow-up visits as told by your health care provider. This includes visits for any further testing if your chest pain does not go away. This information is not intended to replace advice given to you by your health care provider. Make sure you discuss any questions you have with your health care provider. Document Revised: 04/21/2019 Document Reviewed: 04/21/2019 [employer] Patient Education ?? [address] [employer]. Emergency Awareness and Preventative Care STROKE is [...] Assistance with quitting is available by contacting 9-637-UWJS-NOW. This is a free resource providing counseling, [...] radiology, or pathology physicians. Patient Name:SCOTTIE CURRAN ERIKA I have received this information and was given the opportunity to ask questions. Patient/Riveter Name: Patient/Riveter Signature: Relationship to Patient: Clinician/Hospital Riveter Signature: Please Provide a Telephone Number Where You Can Be Reached: Is it Permissible To Leave a Message? Date: Electronically signed by Juarez, Katie Conversion Bibliographic Services Specialist Cerner at 02/16/2023 3:47 PM CDT documented in this encounter Plan of Treatment Upcoming Encounters Date Type Department Care Team (Late st Contact Info) Description 03/10/2025 1:15 PM EDT Office Visit [facility] - [place] [address] [place] [address] Kofi Mcallister PA-C [address] [facility] [[email or web address] [address] [place] [address] documented as of this encounter Visit Diagnoses Not on filedocumented in this encounter Care Teams [employer] Relationship Specialty Start Date End Date Sudhir Payton PA PCP - General 03/02/23 documented as of this encounter
--- OUTSIDE RECORDS SUMMARY | 2024-09-30 17:10 | XMS_ITS | Encounter Summary ---
Author Organization [employer] Address [address] [place] [address] Care Team Providers Care Mental Health Social Worker Name Role Phone Stacy Moise Primary Care Provider [phone] Encounter Details Date Type Department Care Team (Late st Contact Info) Description 05/05/2021 Transcribed Document [facility] [place] [facility] [place] [address] ProviderMireya MD [address] [place] [address] [id number] Social History Tobacco Use Types Packs/Day Years Used Date Smoking Tobacco: Never Assessed Sex and Gender Information Value Date Recorded Sex Assigned at Not on file Legal Sex Male 5:25 PM CDT Gender Identity Not on file Sexual Orientation Not on file documented as of this encounter Miscellaneous Notes * Cerner Conversion Note - Mireya ProviderMD - 05/05/2021 12:36 PM CDT ED Triage Entered On: 05/05/2021 12:45 EDT Performed On: 05/05/2021 12:41 EDT by CONSUELO FLOYD RN-Resource ED Triage Across the Room Chief Complaint : headache radiating under left eye at times. denies any other symptoms. similiar symptoms last year and diagnosed with TIA. Triage Date/Time : 05/05/2021 12:41 EDT CONSUELO FLOYD RN-Resource - 05/05/2021 12:41 EDT DCP GENERIC CODE Tracking Acuity : 3 - Urgent Tracking Group : [facility] ED CONSUELO FLOYD RN-Resource - 05/05/2021 12:41 EDT Mode of Arrival : Ambulatory Transported to ED by : Private vehicle To Room Via : Ambulate Accompanied By : Spouse ED Vital Signs : Document Height & Weight : Document ED Allergies : Document ED Reason for Visit : Document Tetanus Immunization : Unknown CONSUELO FLOYD RN-Resource - 05/05/2021 12:41 EDT Infectious Disease History Has the patient ever been tested for COVID-19? : Yes, Patient stated results Negative Date of COVID-19 test known? : No Does patient have symptoms of COVID-19? : Yes COVID19 Screening : No Experiencing Infectious Disease Symptoms : Headache Physical contact outside [place] in the last 30 days : No Infectious Disease History : Chicken pox/Shingles, Measles, Mumps, Pertussis (Whooping cough) Tuberculosis Symptoms : None CONSUELO FLOYD RN-Resource - 05/05/2021 12:41 EDT Vital Signs ED Temperature Source : Oral Temperature Mode : Fahrenheit ED Pain : Yes CONSUELO FLOYD RN-Resource - 05/05/2021 12:41 EDT Allergy (As Of: 05/05/2021 12:45:29 EDT) Allergies (Active) No Known Medication Allergies Estimated Onset Date: Unspecified ; Created By: SHEILA MARTINEZ RN; Reaction Status: Active ; Category: Drug ; Substance: No Known Medication Allergies ; Type: Allergy ; Updated By: SHEILA MARTINEZ RN; Reviewed Date: 05/05/2021 12:44 EDT Diagnosis Control ED (As Of: 05/05/2021 12:45:29 EDT) Problems(Active) Acquired hypothyroidism (SNOMED CT :538870279 ) Name of Problem: Acquired hypothyroidism ; Recorder: Lorena Brannon RN; Confirmation: Confirmed ; Classification: Patient Stated ; Code: [id number] ; Contributor System: archify ; Last Updated: 01/28/2021 9:20 EDT ; Life Cycle Date: 01/28/2021 ; Life Cycle Status: Active ; Vocabulary: SNOMED CT Anemia (hx of) (SNOMED CT :918044457 ) Name of Problem: Anemia (hx of) ; Recorder: QUOC HALL RN; Confirmation: Confirmed ; Classification: Medical ; Code: 886395197 ; Contributor System: PowerChart ; Last Updated: 01/13/2020 11:12 EDT ; Life Cycle Date: 01/13/2020 ; Life Cycle Status: Active ; Vocabulary: SNOMED CT Angina (hx of, Last had in 2017) (SNOMED CT :129690329 ) Name of Problem: Angina (hx of, Last had in 2016) ; Recorder: RENETTA TRAYLOR RN; Confirmation: Confirmed ; Classification: Medical ; Code: [id number] ; Contributor System: NetStreamsChart ; Last Updated: 01/13/2020 11:09 EDT ; Life Cycle Status: Active ; Vocabulary: SNOMED CT Aortic valve disease (SNOMED CT :32810798 ) Name of Problem: Aortic valve disease ; Recorder: Jhon Perez RN; Confirmation: Confirmed ; Classification: Medical ; Code: 37340234 ; Contributor System: NetStreamsChart ; Last Updated: 05/24/2015 21:46 EDT ; Life Cycle Date: 05/24/2015 ; Life Cycle Status: Active ; Vocabulary: SNOMED CT Arthritis (SNOMED CT :6347503 ) Name of Problem: Arthritis ; Recorder: RENETTA TRAYLOR RN; Confirmation: Confirmed ; Classification: Medical ; Code: 2793826 ; Contributor System: PowerChart ; Last Updated: 12/23/2018 11:50 EST ; Life Cycle Date: 12/23/2018 ; Life Cycle Status: Active ; Vocabulary: SNOMED CT At risk for sleep apnea (IMO :19591201 ) Name of Problem: At risk for sleep apnea ; Recorder: SYSTEM, SYSTEM; Confirmation: Confirmed ; Classification: Medical ; Code: 88343767 ; Last Updated: 12/23/2018 12:09 EST ; Life Cycle Date: 12/23/2018 ; Life Cycle Status: Active ; Vocabulary: IMO Back pain (SNOMED CT :8016499347 ) Name of Problem: Back pain ; Recorder: RENETTA TRAYLOR RN; Confirmation: Confirmed ; Classification: Medical ; Code: 2095488275 ; Contributor System: PowerChart ; Last Updated: 12/23/2018 11:50 EST ; Life Cycle Date: 12/23/2018 ; Life Cycle Status: Active ; Vocabulary: SNOMED CT CAD (coronary artery disease) (SNOMED CT :26647941 ) Name of Problem: CAD (coronary artery disease) ; Recorder: Jhon Perez RN; Confirmation: Confirmed ; Classification: Medical ; Code: 32452324 ; Contributor System: PowerChart ; Last Updated: 05/24/2015 21:45 EDT ; Life Cycle Date: 05/24/2015 ; Life Cycle Status: Active ; Vocabulary: SNOMED CT Cervical spinal stenosis (SNOMED CT :365272185 ) Name of Problem: Cervical spinal stenosis ; Recorder: QUOC HALL RN; Confirmation: Confirmed ; Classification: Medical ; Code: 817546567 ; Contributor System: PowerChart ; Last Updated: 01/13/2020 11:13 EDT ; Life Cycle Date: 01/13/2020 ; Life Cycle Status: Active ; Vocabulary: SNOMED CT Claudication (SNOMED CT :935559156 ) Name of Problem: Claudication ; Recorder: ALFREDA CASTILLO; Confirmation: Confirmed ; Classification: Medical ; Code: 330786674 ; Contributor System: PowerChart ; Last Updated: 06/13/2019 12:55 EDT ; Life Cycle Date: 06/13/2019 ; Life Cycle Status: Active ; Vocabulary: SNOMED CT Colorectal surgery (SNOMED CT :7794779651 ) Name of Problem: Colorectal surgery ; Recorder: QUOC HALL RN; Confirmation: Confirmed ; Classification: Medical ; Code: 8942200402 ; Contributor System: PowerChart ; Last Updated: 01/13/2020 11:12 EDT ; Life Cycle Date: 01/13/2020 ; Life Cycle Status: Active ; Vocabulary: SNOMED CT Diabetes (SNOMED CT :917655747 ) Name of Problem: Diabetes ; Recorder: Lorena Brannon RN; Confirmation: Confirmed ; Classification: Patient Stated ; Code: 334347600 ; Contributor System: PowerChart ; Last Updated: 01/28/2021 9:20 EDT ; Life Cycle Date: 01/28/2021 ; Life Cycle Status: Active ; Vocabulary: SNOMED CT Disorder of prostate (SNOMED CT :01628756 ) Name of Problem: Disorder of prostate ; Recorder: LILIANA CAMILO RN; Confirmation: Confirmed ; Classification: Patient Stated ; Code: 32232342 ; Contributor System: PowerChart ; Last Updated: 04/19/2018 9:14 EDT ; Life Cycle Date: 04/19/2018 ; Life Cycle Status: Active ; Vocabulary: SNOMED CT Diverticulitis///HX (SNOMED CT :423786025 ) Name of Problem: Diverticulitis///HX ; Recorder: RENETTA TRAYLOR RN; Confirmation: Confirmed ; Classification: Medical ; Code: 203968378 ; Contributor System: NetStreamsChart ; Last Updated: 12/23/2018 11:46 EST ; Life Cycle Date: 12/23/2018 ; Life Cycle Status: Active ; Vocabulary: SNOMED CT Dizzy spells (occasional) (SNOMED CT :936250175 ) Name of Problem: Dizzy spells (occasional) ; Recorder: QUOC HALL RN; Confirmation: Confirmed ; Classification: Medical ; Code: 952657566 ; Contributor System: PowerChart ; Last Updated: 01/13/2020 11:16 EDT ; Life Cycle Date: 01/13/2020 ; Life Cycle Status: Active ; Vocabulary: SNOMED CT Fatty liver (SNOMED CT :201403472 ) Name of Problem: Fatty liver ; Recorder: QUOC HALL RN; Confirmation: Confirmed ; Classification: Medical ; Code: 589723649 ; Contributor System: PowerChart ; Last Updated: 01/13/2020 11:14 EDT ; Life Cycle Date: 01/13/2020 ; Life Cycle Status: Active ; Vocabulary: SNOMED CT GERD - Gastro-esophageal reflux disease (SNOMED CT :5753066249 ) Name of Problem: GERD - Gastro-esophageal reflux disease ; Recorder: RENETTA TRAYLOR RN; Confirmation: Confirmed ; Classification: Medical ; Code: 8676662349 ; Contributor System: NetStreamsChart ; Last Updated: 12/23/2018 11:49 EST ; Life Cycle Date: 12/23/2018 ; Life Cycle Status: Active ; Vocabulary: SNOMED CT Hard of hearing (SNOMED CT :025251038 ) Name of Problem: Hard of hearing ; Recorder: LILIANA CAMILO RN; Confirmation: Confirmed ; Classification: Patient Stated ; Code: 968452971 ; Contributor System: NetStreamsChart ; Last Updated: 04/19/2018 9:13 EDT ; Life Cycle Date: 04/19/2018 ; Life Cycle Status: Active ; Vocabulary: SNOMED CT Has been smoking for 30 years ([address] :964585778 ) Name of Problem: Has been smoking for 30 years ; Recorder: Nieves Fraga, Registered Nurse; Confirmation: Confirmed ; Classification: Patient Stated ; Code: 810606938 ; Contributor System: PowerChart ; Last Updated: 03/08/2020 10:17 EDT ; Life Cycle Date: 03/08/2020 ; Life Cycle Status: Active ; Vocabulary: SNOMED CT High cholesterol (SNOMED CT :12093604 ) Name of Problem: High cholesterol ; Recorder: Jhon Perez, MIKE; Confirmation: Confirmed ; Classification: Medical ; Code: 22656805 ; Contributor System: PowerChart ; Last Updated: 05/24/2015 21:46 EDT ; Life Cycle Date: 05/24/2015 ; Life Cycle Status: Active ; Vocabulary: SNOMED CT HTN (hypertension) (SNOMED CT :0114335811 ) Name of Problem: HTN (hypertension) ; Recorder: Jhon Perez, MIKE; Confirmation: Confirmed ; Classification: Medical ; Code: 5322384862 ; Contributor System: PowerChart ; Last Updated: 05/24/2015 21:45 EDT ; Life Cycle Date: 05/24/2015 ; Life Cycle Status: Active ; Vocabulary: SNOMED CT Murmur (SNOMED CT :132649510 ) Name of Problem: Murmur ; Recorder: RENETTA TRAYLOR RN; Confirmation: Confirmed ; Classification: Medical ; Code: 516465415 ; Contributor System: PowerChart ; Last Updated: 12/23/2018 11:49 EST ; Life Cycle Date: 12/23/2018 ; Life Cycle Status: Active ; Vocabulary: SNOMED CT Peripheral vascular disease (SNOMED CT :6377201995 ) Name of Problem: Peripheral vascular disease ; Recorder: LILIANA CAMILO RN; Confirmation: Confirmed ; Classification: Patient Stated ; Code: 1610170371 ; Contributor System: PowerChart ; Last Updated: 04/19/2018 9:13 EDT ; Life Cycle Date: 04/19/2018 ; Life Cycle Status: Active ; Vocabulary: SNOMED CT Prostatitis/ (SNOMED CT :16160567 ) Name of Problem: Prostatitis ; Recorder: RENETTA TRAYLOR RN; Confirmation: Confirmed ; Classification: Medical ; Code: 37807889 ; Contributor System: PowerChart ; Last Updated: 12/23/2018 11:47 EST ; Life Cycle Status: Active ; Vocabulary: SNOMED CT Renal calculus///HX (SNOMED CT :137215916 ) Name of Problem: Renal calculus///HX ; Recorder: RENETTA TRAYLOR RN; Confirmation: Confirmed ; Classification: Medical ; Code: 839713944 ; Contributor System: archify ; Last Updated: 12/23/2018 11:50 EST ; Life Cycle Date: 12/23/2018 ; Life Cycle Status: Active ; Vocabulary: SNOMED CT Stented coronary artery (SNOMED CT :6188215887 ) Name of Problem: Stented coronary artery ; Recorder: RENETTA TRAYLOR RN; Confirmation: Confirmed ; Classification: Medical ; Code: 7718240716 ; Contributor System: NetStreamsChart ; Last Updated: 12/23/2018 11:48 EST ; Life Cycle Date: 12/23/2018 ; Life Cycle Status: Active ; Vocabulary: SNOMED CT Diagnoses(Active) Headache Date: 05/05/2021 ; Diagnosis Type: Reason For Visit ; Confirmation: Complaint of ; Clinical Dx: Headache ; Classification: Medical ; Clinical Service: Emergency medicine ; Code: PNED ; Probability: 0 ; Diagnosis Code: [id number] ED Height and Weight Height Source : Stated Height Entry Format : [place] Height, Feet : 5 ft(Converted to: 152 cm, 60 Inch) Height, Inches : 9 Inch(Converted to: 0 ft 9 Inch, 22.86 cm) Clinical Height : 175.26 cm Weight Source, ED : Critical estimated dosing weight Weight Entry Format : [place] Weight, Pounds : 170 lb Clinical Dosing Weight : 77.27 kg Body Surface Area (BSA) : 1.93 m2 Body Mass Index : 25.2 kg/m2 (HI) [place] Body Weight (IBW) : 69.73 kg CONSUELO FLOYD RN-Resource - 05/05/2021 12:41 EDT Pain Assessment Pain Assessment : Initial assessment Pain Scale Used : 0-10 Scale Location : Head CONSUELO FLOYD RN-Resource - 05/05/2021 12:41 EDT Pain Scale Intensity : 5 CONSUELO FLOYD RN-Resource - 05/05/2021 12:41 EDT Image 4 - Images currently included in the form version of this document have not been included in the text rendition version of the form. documented in this encounter Plan of Treatment Upcoming Encounters Date Type Department Care Team (Late st Contact Info) Description 03/10/2025 1:15 PM EDT Office Visit [facility] Cardiology - [place] [address] [place] [address] Tabby Mcallister PA-C [address] [facility] [address] [place] [address] documented as of this encounter Visit Diagnoses Not on filedocumented in this encounter Care Teams Mental Health Social Worker Relationship Specialty Start Date End Date Stacy Mosie PA PCP - General 03/02/23 documented as of this encounter
--- OUTSIDE RECORDS SUMMARY | 2024-09-30 17:10 | XMS_ITS | Encounter Summary ---
Author Organization [employer] Address [address] [place] [address] Care Team Providers Care Neurosurgery Spine Physician Name Role Phone Stacy Moise Primary Care Provider [phone] Encounter Details Date Type Department Care Team (Late st Contact Info) Description 08/28/2021 Transcribed Document [facility] [place] [address] ProviderMireya MD [address] [place] [id number] Social History Tobacco Use Types Packs/Day Years Used Date Smoking Tobacco: Never Assessed Sex and Gender Information Value Date Recorded Sex Assigned at Not on file Legal Sex Male 5:25 PM CDT Gender Identity Not on file Sexual Orientation Not on file documented as of this encounter Miscellaneous Notes * Cerner Conversion Note - Mireya Osuna MD - 08/28/2021 5:21 PM CDT ED Assessment Entered On: 08/28/2021 18:57 EDT Performed On: 08/28/2021 18:56 EDT by Shelby Dumont RN-PATIENT CARE BEDSIDE NON-EXEMPT ED Quick Look Assessment Level of Consciousness : Alert, Awake Affect/Behavior : Appropriate, Calm, Cooperative Orientation : Oriented x 4 Skin Temperature : Warm Skin Description : Normal for ethnicity Shelby Dumont RN-PATIENT CARE BEDSIDE NON-EXEMPT - 08/28/2021 18:56 EDT ED General-Functional Assess Information Obtained From : Patient Preferred Communication Mode : Verbal Communication Barrier : None Primary Language : Estonian Any Spiritual/Cultural Needs or Requests : No Currently in Unsafe Situation : No Shelby Dumont RN-PATIENT CARE BEDSIDE NON-EXEMPT - 08/28/2021 18:56 EDT Social Habits Smoking Status : Smoker, current status unknown Smokeless Tobacco Status : Never Desires Tobacco Cessation Medication : No Reason for No Tobacco Cessation Medication : ED/procedural patient only Desires Tobacco Cessation Calc : 1 Shelby Dumont RN-PATIENT CARE BEDSIDE NON-EXEMPT - 08/28/2021 18:56 EDT Social History (As Of: 08/28/2021 19:15:12 EDT) Tobacco: Smoking Status Current every day smoker. [...] (Last Updated: 01/28/2021 09:23:17 EDT by Lorena Brannon, MIKE) Alcohol: Alcohol Use History Yes. Alcohol Use Frequency Rarely. (Last Updated: 11/18/2016 12:56:54 EST by LILIANA CAMILO RN) Alcohol Use History No. Alcohol Use Frequency Socially. (Last Updated: 01/28/2021 09:23:17 EDT by Lorena Brannon RN) Substance Abuse: Drug Use Hx: No. Use in Last 12 Months: No. (Last Updated: 12/23/2018 11:55:19 EST by RENETTA TRAYLOR, MIKE) Home/Environment: Lives with Spouse. Living situation: Home/Independent. (Last Updated: 07/21/2014 22:40:52 EDT by SON DUMONT PA-C) Cardiovascular ASMT, ED Cardiovascular Assessment WDL : WDL with exceptions Cardiovascular Symptoms : Other: left jaw pain Shelby Dumont RN-PATIENT CARE BEDSIDE NON-EXEMPT - 08/28/2021 19:12 EDT Respiratory Respiratory Assessment WDL : Shelby Hope RN-PATIENT CARE BEDSIDE NON-EXEMPT - 08/28/2021 19:12 EDT Musculoskeletal Musculoskeletal Assessment WDL : Shelby Hope RN-PATIENT CARE BEDSIDE NON-EXEMPT - 08/28/2021 19:12 EDT Neurologic ASMT, ED Neurologic Assessment WDL : Shelby Hope RN-PATIENT CARE BEDSIDE NON-EXEMPT - 08/28/2021 19:12 EDT Electronically signed by [facility] Conversion Grain Cleaner And Transfer Operator Cerner at 02/16/2023 4:12 PM CDT documented in this encounter Plan of Treatment Upcoming Encounters Date Type Department Care Team (Late st Contact Info) Description 03/10/2025 1:15 PM EDT Office Visit [facility] Cardiology - [place] [address] [place] [address] Tabby Mcallister PA-C [address] [address] documented as of this encounter Visit Diagnoses Not on filedocumented in this encounter Care Teams Neurosurgery Spine Physician Relationship Specialty Start Date End Date Stacy Moise PA PCP - General 03/02/23 documented as of this encounter
--- OUTSIDE RECORDS SUMMARY | 2024-09-30 17:10 | XMS_ITS | Encounter Summary ---
Author Organization [employer] Address [address] [facility] [facility] [place] [address] Care Team Providers Care Heritage Consultant Name Role Phone Stacy Moise Primary Care Provider [phone] Encounter Details Date Type Department Care Team (Late st Contact Info) Description 10/27/[address] [facility] [place] [place] Family [place] [facility] [place] [address] ProviderMireya MD [address] [place] [id number] Social History Tobacco Use Types Packs/Day Years Used Date Smoking Tobacco: Never Assessed Sex and Gender Information Value Date Recorded Sex Assigned at Not on file Legal Sex Male 5:25 PM CDT Gender Identity Not on file Sexual Orientation Not on file documented as of this encounter Miscellaneous Notes * Cerner Conversion Note - Mireya Osuna MD - 10/27/2021 9:04 PM HYDRAULIC CORRUGATING MACHINE OPERATOR ED Triage Entered On: 10/27/2021 21:15 EST Performed On: 10/27/2021 21:13 EST by BOLA RIOS RN ED Triage Across the Room Chief Complaint : Pt here for HTN, BP @ home , took BP medicine Isosorbide, BP now 127/68, Denies CP. Hx: diabetes, CAD, TIA, HTN, PVD Triage Date/Time : 10/27/2021 21:13 EST BOLA RIOS RN - 10/27/2021 21:13 EST DCP GENERIC CODE Tracking Acuity : 4 - Non - Urgent Tracking Group : [facility] ED BOLA RIOS RN - 10/27/2021 21:13 EST Mode of Arrival : Ambulatory Transported to ED by : Walk in To Room Via : Ambulate Accompanied By : Spouse ED Vital Signs : Document Height & Weight : Document ED Allergies : Document ED Reason for Visit : Document Tetanus Immunization : Unknown BOLA RIOS RN - 10/27/2021 21:13 EST Infectious Disease History Does patient have symptoms of COVID-19? : No Has the Patient Been Tested for COVID-19 in the last 14 days? : No, Patient stated Does the Patient state known exposure to a COVID-19 positive case in the last 14 days? : No Patient Vaccinated for COVID-19 : Fully vaccinated BOLA RIOS RN - 10/27/2021 21:13 EST Infectious Disease Risk Screening Grid Cough < 2 wks of unknown origin : NO Cough > 2 weeks : NO Blood in Sputum : NO Fever or self-reported Fever : NO Rash of unknown origin : NO Headache : NO Stiff neck : NO Night Sweats : NO Unexplained Weight Loss : NO Diarrhea (3 episode per day) : NO BOLA RIOS RN - 10/27/2021 21:13 EST Physical contact outside US in the last 30 days : No Hospitalized in Foreign Country : No Infectious Disease History : Chicken pox/Shingles, Measles, Mumps, Pertussis (Whooping cough) INF Disease TB Screening Calc : 0 INF Disease Recent Travel Calc : 0 BOLA RIOS RN - 10/27/2021 21:13 EST Vital Signs ED Temperature Source : Oral Temperature Mode : Fahrenheit Temperature, Fahrenheit : 98.4 Deg F Clinical Temperature, C : 36.9 Deg C Oxygen Therapy Mode : Room air Peripheral Pulse Rate : 62 bpm Respiratory Rate : 18 Breaths/Min Systolic Blood Pressure : 127 mmHg Diastolic Blood Pressure : 68 mmHg Oxygen Saturation : 98 % BOLA RIOS RN - 10/27/2021 21:13 EST Allergy (As Of: 10/27/2021 21:15:57 EST) Allergies (Active) No Known Medication Allergies Estimated Onset Date: Unspecified ; Created By: SHEILA MARTINEZ RN; Reaction Status: Active ; Category: Drug ; Substance: No Known Medication Allergies ; Type: Allergy ; Updated By: SHEILA MARTINEZ RN; Reviewed Date: 10/27/2021 21:15 EST Diagnosis Control ED (As Of: 10/27/2021 21:15:57 EST) Problems(Active) Acquired hypothyroidism (SNOMED CT :866836010 ) Name of Problem: Acquired hypothyroidism ; Recorder: Lorena Brannon RN; Confirmation: Confirmed ; Classification: Patient Stated ; Code: [id number] ; Contributor System: [employer] ; Last Updated: 01/28/2021 9:20 EDT ; Life Cycle Date: 01/28/2021 ; Life Cycle Status: Active ; Vocabulary: SNOMED CT Anemia (hx of) (SNOMED CT :815333243 ) Name of Problem: Anemia (hx of) ; Recorder: QUOC HALL RN; Confirmation: Confirmed ; Classification: Medical ; Code: [id number] ; Contributor System: PowerChart ; Last Updated: 01/13/2020 11:12 EDT ; Life Cycle Date: 01/13/2020 ; Life Cycle Status: Active ; Vocabulary: SNOMED CT Angina (hx of, Last had in 2016) (SNOMED CT :155744709 ) Name of Problem: Angina (hx of, Last had in 2016) ; Recorder: RENETTA TRAYLOR RN; Confirmation: Confirmed ; Classification: Medical ; Code: 995927540 ; Contributor System: [employer] ; Last Updated: 01/13/2020 11:09 EDT ; Life Cycle Status: Active ; Vocabulary: SNOMED CT Aortic valve disease (SNOMED CT :65963588 ) Name of Problem: Aortic valve disease ; Recorder: Jhon Perez RN; Confirmation: Confirmed ; Classification: Medical ; Code: 77424009 ; Contributor System: PowerChart ; Last Updated: 05/24/2015 21:46 EDT ; Life Cycle Date: 05/24/2015 ; Life Cycle Status: Active ; Vocabulary: SNOMED CT Arthritis (SNOMED CT :6780948 ) Name of Problem: Arthritis ; Recorder: RENETTA TRAYLOR RN; Confirmation: Confirmed ; Classification: Medical ; Code: 5608838 ; Contributor System: PowerChart ; Last Updated: 12/23/2018 11:50 EST ; Life Cycle Date: 12/23/2018 ; Life Cycle Status: Active ; Vocabulary: SNOMED CT At risk for sleep apnea (IMO :34816131 ) Name of Problem: At risk for sleep apnea ; Recorder: SYSTEM, SYSTEM; Confirmation: Confirmed ; Classification: Medical ; Code: 51875403 ; Last Updated: 12/23/2018 12:09 EST ; Life Cycle Date: 12/23/2018 ; Life Cycle Status: Active ; Vocabulary: IMO Back pain (SNOMED CT :1903465122 ) Name of Problem: Back pain ; Recorder: RENETTA TRAYLOR, MIKE; Confirmation: Confirmed ; Classification: Medical ; Code: 8076289371 ; Contributor System: PowerChart ; Last Updated: 12/23/2018 11:50 EST ; Life Cycle Date: 12/23/2018 ; Life Cycle Status: Active ; Vocabulary: SNOMED CT CAD (coronary artery disease) (SNOMED CT :71706624 ) Name of Problem: CAD (coronary artery disease) ; Recorder: Jhon Perez, MIKE; Confirmation: Confirmed ; Classification: Medical ; Code: 22566097 ; Contributor System: PowerChart ; Last Updated: 05/24/2015 21:45 EDT ; Life Cycle Date: 05/24/2015 ; Life Cycle Status: Active ; Vocabulary: SNOMED CT Cervical spinal stenosis (SNOMED CT :221869979 ) Name of Problem: Cervical spinal stenosis ; Recorder: QUOC HALL RN; Confirmation: Confirmed ; Classification: Medical ; Code: 159437251 ; Contributor System: PowerChart ; Last Updated: 01/13/2020 11:13 EDT ; Life Cycle Date: 01/13/2020 ; Life Cycle Status: Active ; Vocabulary: SNOMED CT Claudication (SNOMED CT :258631740 ) Name of Problem: Claudication ; Recorder: ALFREDA CASTILLO; Confirmation: Confirmed ; Classification: Medical ; Code: 601787041 ; Contributor System: PowerChart ; Last Updated: 06/13/2019 12:55 EDT ; Life Cycle Date: 06/13/2019 ; Life Cycle Status: Active ; Vocabulary: SNOMED CT Colorectal surgery (SNOMED CT :5997954646 ) Name of Problem: Colorectal surgery ; Recorder: QUOC HALL RN; Confirmation: Confirmed ; Classification: Medical ; Code: 9996202243 ; Contributor System: PowerChart ; Last Updated: 01/13/2020 11:12 EDT ; Life Cycle Date: 01/13/2020 ; Life Cycle Status: Active ; Vocabulary: SNOMED CT Diabetes (SNOMED CT :002287658 ) Name of Problem: Diabetes ; Recorder: Lorena Brannon RN; Confirmation: Confirmed ; Classification: Patient Stated ; Code: 962516146 ; Contributor System: PowerChart ; Last Updated: 01/28/2021 9:20 EDT ; Life Cycle Date: 01/28/2021 ; Life Cycle Status: Active ; Vocabulary: SNOMED CT Disorder of prostate (SNOMED CT :22942081 ) Name of Problem: Disorder of prostate ; Recorder: LILIANA CAMILO RN; Confirmation: Confirmed ; Classification: Patient Stated ; Code: 54523747 ; Contributor System: PowerChart ; Last Updated: 04/19/2018 9:14 EDT ; Life Cycle Date: 04/19/2018 ; Life Cycle Status: Active ; Vocabulary: SNOMED CT Diverticulitis///HX (SNOMED CT :148219176 ) Name of Problem: Diverticulitis///HX ; Recorder: RENETTA TRAYLOR RN; Confirmation: Confirmed ; Classification: Medical ; Code: 337295078 ; Contributor System: PowerChart ; Last Updated: 12/23/2018 11:46 EST ; Life Cycle Date: 12/23/2018 ; Life Cycle Status: Active ; Vocabulary: SNOMED CT Dizzy spells (occasional) (SNOMED CT :060393380 ) Name of Problem: Dizzy spells (occasional) ; Recorder: QUOC HALL RN; Confirmation: Confirmed ; Classification: Medical ; Code: 087438978 ; Contributor System: PowerChart ; Last Updated: 01/13/2020 11:16 EDT ; Life Cycle Date: 01/13/2020 ; Life Cycle Status: Active ; Vocabulary: SNOMED CT Fatty liver (SNOMED CT :427065617 ) Name of Problem: Fatty liver ; Recorder: QUOC HALL RN; Confirmation: Confirmed ; Classification: Medical ; Code: 320626898 ; Contributor System: PowerChart ; Last Updated: 01/13/2020 11:14 EDT ; Life Cycle Date: 01/13/2020 ; Life Cycle Status: Active ; Vocabulary: SNOMED CT GERD - Gastro-esophageal reflux disease (SNOMED CT :0924143773 ) Name of Problem: GERD - Gastro-esophageal reflux disease ; Recorder: RENETTA TRAYLOR RN; Confirmation: Confirmed ; Classification: Medical ; Code: 2600000121 ; Contributor System: PowerChart ; Last Updated: 12/23/2018 11:49 EST ; Life Cycle Date: 12/23/2018 ; Life Cycle Status: Active ; Vocabulary: SNOMED CT Hard of hearing (SNOMED CT :481441128 ) Name of Problem: Hard of hearing ; Recorder: LILIANA CAMILO RN; Confirmation: Confirmed ; Classification: Patient Stated ; Code: 082286836 ; Contributor System: PowerChart ; Last Updated: 04/19/2018 9:13 EDT ; Life Cycle Date: 04/19/2018 ; Life Cycle Status: Active ; Vocabulary: SNOMED CT Has been smoking for 30 years (SNOMED CT :014555049 ) Name of Problem: Has been smoking for 30 years ; Recorder: Nieves Fraga, Registered Nurse; Confirmation: Confirmed ; Classification: Patient Stated ; Code: 700623723 ; Contributor System: PowerChart ; Last Updated: 03/08/2020 10:17 EDT ; Life Cycle Date: 03/08/2020 ; Life Cycle Status: Active ; Vocabulary: SNOMED CT High cholesterol (SNOMED CT :05470648 ) Name of Problem: High cholesterol ; Recorder: Jhon Perez, MIKE; Confirmation: Confirmed ; Classification: Medical ; Code: 53873796 ; Contributor System: PowerChart ; Last Updated: 05/24/2015 21:46 EDT ; Life Cycle Date: 05/24/2015 ; Life Cycle Status: Active ; Vocabulary: SNOMED CT HTN (hypertension) (SNOMED CT :3768220468 ) Name of Problem: HTN (hypertension) ; Recorder: Jhon Perez RN; Confirmation: Confirmed ; Classification: Medical ; Code: 5966917388 ; Contributor System: PowerChart ; Last Updated: 05/24/2015 21:45 EDT ; Life Cycle Date: 05/24/2015 ; Life Cycle Status: Active ; Vocabulary: SNOMED CT Murmur (SNOMED CT :775119820 ) Name of Problem: Murmur ; Recorder: RENETTA TRAYLOR RN; Confirmation: Confirmed ; Classification: Medical ; Code: 176070791 ; Contributor System: PowerChart ; Last Updated: 12/23/2018 11:49 EST ; Life Cycle Date: 12/23/2018 ; Life Cycle Status: Active ; Vocabulary: SNOMED CT Peripheral vascular disease (SNOMED CT :2305288262 ) Name of Problem: Peripheral vascular disease ; Recorder: LILIANA CAMILO RN; Confirmation: Confirmed ; Classification: Patient Stated ; Code: 3092581589 ; Contributor System: [employer] ; Last Updated: 04/19/2018 9:13 EDT ; Life Cycle Date: 04/19/2018 ; Life Cycle Status: Active ; Vocabulary: SNOMED CT Prostatitis/ (SNOMED CT :64407127 ) Name of Problem: Prostatitis/ ; Recorder: RENETTA TRAYLOR RN; Confirmation: Confirmed ; Classification: Medical ; Code: 14272891 ; Contributor System: [employer] ; Last Updated: 12/23/2018 11:47 EST ; Life Cycle Status: Active ; Vocabulary: SNOMED CT Renal calculus///HX (SNOMED CT :255320953 ) Name of Problem: Renal calculus///HX ; Recorder: RENETTA TRAYLOR RN; Confirmation: Confirmed ; Classification: Medical ; Code: 509677286 ; Contributor System: [employer] ; Last Updated: 12/23/2018 11:50 EST ; Life Cycle Date: 12/23/2018 ; Life Cycle Status: Active ; Vocabulary: SNOMED CT Stented coronary artery (SNOMED CT :1558450941 ) Name of Problem: Stented coronary artery ; Recorder: RENETTA TRAYLOR RN; Confirmation: Confirmed ; Classification: Medical ; Code: 2378213096 ; Contributor System: [employer] ; Last Updated: 12/23/2018 11:48 EST ; Life Cycle Date: 12/23/2018 ; Life Cycle Status: Active ; Vocabulary: SNOMED CT Diagnoses(Active) Hypertension Date: 10/27/2021 ; Diagnosis Type: Reason For Visit ; Confirmation: Complaint of ; Clinical Dx: Hypertension ; Classification: Medical ; Clinical Service: Non-Specified ; Code: PNED ; Probability: 0 ; Diagnosis Code: [id number] ED Height and Weight Height Source : Stated Height Entry Format : [place] Height, Feet : 5 ft(Converted to: 152 cm, 60 Inch) Height, Inches : 9 Inch(Converted to: 0 ft 9 Inch, 22.86 cm) Clinical Height : 175.26 cm Weight Source, ED : Critical estimated dosing weight Weight Entry Format : [place] Weight, Pounds : 175 lb Clinical Dosing Weight : 79.55 kg Body Surface Area (BSA) : 1.95 m2 Body Mass Index : 25.9 kg/m2 (HI) [place] Body Weight (IBW) : 69.73 kg BOLA RIOS, RN - 10/27/2021 21:13 EST Electronically signed by [facility] Conversion Electronic Installer Cerner at 02/16/2023 4:13 PM CDT documented in this encounter Plan of Treatment Upcoming Encounters Date Type Department Care Team (Late st Contact Info) Description 03/10/2025 1:15 PM EDT Office Visit [facility] Cardiology - [place] [address] [place] [address] Tabby Mcallister PA-C [address] [address] documented as of this encounter Visit Diagnoses Not on filedocumented in this encounter Care Teams Heritage Consultant Relationship Specialty Start Date End Date Stacy Moise PA PCP - General 03/02/23 documented as of this encounter
--- OUTSIDE RECORDS SUMMARY | 2024-09-30 17:10 | XMS_ITS | Encounter Summary ---
Author Organization [employer] Address [address] [facility] [place] [address] Care Team Providers Care Truck Jumper Name Role Phone Stacy Moise Primary Care Provider [phone] Encounter Details Date Type Department Care Team (Late st Contact Info) Description 01/28/2021 Transcribed Document [facility] [place] Family [facility] [place] [address] ProviderMireya MD [address] [place] [id number] Social History Tobacco Use Types Packs/Day Years Used Date Smoking Tobacco: Never Assessed Sex and Gender Information Value Date Recorded Sex Assigned at Not on file Legal Sex Male 5:25 PM CDT Gender Identity Not on file Sexual Orientation Not on file documented as of this encounter Miscellaneous Notes * Cerner Conversion Note - Mireya ProviderMD - 01/28/2021 9:21 AM CDT Pre Procedure Adult Entered On: 01/28/2021 9:29 EDT Performed On: 01/28/2021 9:21 EDT by Lorena Brannon RN Height and Weight, Clinical Dosing Height Source : Stated Height Entry Format : [place] Height, Feet : 5 ft(Converted to: 152 cm, 60 Inch) Height, Inches : 9 Inch(Converted to: 0 ft 9 Inch, 22.86 cm) Clinical Height : 175.26 cm Weight Source : Standing scale Weight Entry Format : [place] Clinical Dosing Weight : 77.27 kg Weight, Pounds : 170 lb Body Surface Area (BSA) : 1.93 m2 Body Mass Index : 25.2 kg/m2 (HI) [place] Body Weight : 70 kg Lorena Brannon RN - 01/28/2021 9:21 EDT Health Histories Smoking Status : 10 or more cigarettes (1/2 pack or more)/day in last 30 days Smokeless Tobacco Status : Never Desires Tobacco Cessation Medication : No Reason for No Tobacco Cessation Medication : Refuses FDA approved medications Lorena Brannon RN - 01/28/2021 9:21 EDT Social History (As Of: 01/28/2021 09:29:14 EDT) Tobacco: Smoking Status Current every day [...] 07/21/2014 22:40:52 EDT by SON DUMONT PA-C) Infectious Disease History Has the patient ever been tested for COVID-19? : Yes, Patient stated results Negative Where are the test results? : Paper Copy on chart Date of COVID-19 test known? : Yes Date of COVID-19 Test : 01/25/2021 EDT Does patient have symptoms of COVID-19? : No COVID19 Screening : No Experiencing Infectious Disease Symptoms : No symptoms Physical contact outside US in the last 30 days : No Infectious Disease History : Chicken pox/Shingles, Measles, Mumps, Pertussis (Whooping cough) Tuberculosis Symptoms : None Lorena Brannon RN - 01/28/2021 9:21 EDT COVID19 PreProcedure Screening Is this an Emergent or Add on Procedure? : No Date PreProcedure COVID-19 test known? : Yes Date of PreProcedure COVID-19 : 01/25/2021 EDT Has patient been isolated since the test : Yes Exposed to COVID19 symptoms since test? : Yes Lorena Brannon RN - 01/28/2021 9:21 EDT Anesthesia/Transfusion History Family History of Anesthesia Reaction : No prior transfusion(s) Transfusion History : Prior anesthesia without reaction Family History of Anesthesia Reaction : None Lorena Brannon RN - 01/28/2021 9:21 EDT Functional Assessment Living Situation : Home Patient Lives With : Spouse Persons Assisting Patient at Home : Spouse Current Daily Living Assistance : None Current Home Treatments : None Lorena Brannon RN - 01/28/2021 9:21 EDT [place] Suicide Severity Rating Scale (C-SSRS) CSSRS Past Month Wish to be : No CSSRS Past Month Suicidal Thoughts : No CSSRS Lifetime Suicide Behavior : No Suicide Severity Rating Score : 0 Suicide Severity Rating : No Additional Care Required at this time Lorena Brannon RN - 01/28/2021 9:21 EDT Psychosocial History Do You Have a History of the Following? : Patient denies history Currently in Unsafe Situation : No Lorena Brannon RN - 01/28/2021 9:21 EDT Advance Directive Patient has Advance Directive *Q : No, patient refuses Advance Directive information Lorena Brannon RN - 01/28/2021 9:21 EDT Teaching/Learning Assessment Barriers To Learning : None evident Individuals Taught : Patient, Spouse Readiness to Learn : Cooperative Readiness to Learn : Explanation Learning Style Preferences Patient : Verbal explanation Learning Style Preferences Family : Verbal explanation Lorena Brannon RN - 01/28/2021 9:21 EDT Education Topics, Periop Preadmission Perioperative Education Grid IV's : Verbalizes understanding NPO Status/Directions : Verbalizes understanding Pain Management : Verbalizes understanding Preprocedure Preparations : Verbalizes understanding Preprocedure Tests/Labs : Verbalizes understanding Lorena Brannon RN - 01/28/2021 9:21 EDT General Info Preferred Name : scottie Legal Guardian : Nivia Support Person/Patient Leaf Sucker Operator : Yes Support Person/Pt Rep Name : JOAN ware Support Person/Pt Rep Contact Information : joan el [phone], cell Want Family/Rep/Phys Notified of Admit : No Emergency Contact #1 : na Emergency Contact #1 Phone Number : na Emergency Contact #1 Relationship : na Emergency Contact #2 : an Emergency Contact #2 Phone Number : na Emergency Contact #2 Relationship : na Primary Language : Lithuanian Preferred Communication Mode : Verbal Communication Barrier : None Counter Helper Needed : No Lorena Brannon RN - 01/28/2021 9:21 EDT Vital Measurements Temperature Source : Temporal artery scanning Temperature Mode : Fahrenheit Temperature, Fahrenheit : 97.9 Deg F Clinical Temperature, C : 36.6 Deg C Heart Rate, Apical : 61 bpm Systolic Blood Pressure : 140 mmHg Diastolic Blood Pressure : 63 mmHg Oxygen Saturation : 99 % Oxygen Therapy Mode : Room air Lorena Brannon RN - 01/28/2021 9:21 EDT Sleep Apnea Risk Assmt Hx of Obstructive [...] Sleep Apnea Risk Level Score : 4 Lorena Brannon RN - 01/28/2021 9:21 EDT Reed Scale Reed Sensory Perception : No impairment Reed Moisture : Rarely moist Reed Activity : Walks frequently Reed Mobility : No limitation Reed Nutrition : Excellent Reed Friction and Shear : No apparent problem Reed Score : 23 Lorena Brannon RN - 01/28/2021 9:21 EDT Oxygen Therapy Oxygen Therapy Mode : Room air Lorena Brannon RN - 01/28/2021 9:21 EDT Pain Assessment Pain Scale Used : 0-10 Scale Lorena Brannon RN - 01/28/2021 9:21 EDT Fall Risk Scales ABCs Fall Injury Risk Identification : Age ABC Fall Injury Risk : Moderate to high injury risk GUTIERREZ Hx Falls Immediate/Within 3 Months : No Gutierrez Secondary Diagnosis : No GUTIERREZ Use of Ambulatory Aid : None GUTIERREZ IV Therapy or IV Access : Yes Gutierrez Gait/Transferring : Normal, bedrest, immobile Gutierrez Mental Status : Oriented to own ability Gutierrez Fall Risk Score : 20 GUTIERREZ Fall Scale Risk Level : 0-24 Low Risk [place] Fall Interventions : Adequate lighting, Assistive devices within reach, Bed in low position, Call device within reach, Frequent orientation to call device, Frequent orientation to surroundings, Hourly comfort/safety rounds, Non-slip footwear, Personal items within reach, Upper side-rails up, Wheels locked, Wires/Cords secured Lorena Brannon RN - 01/28/2021 9:21 EDT Valuables and Belongings Valuables and Belongings : Clothing, Personal items Clothing : Common streetwear Clothing Disposition : Bedside Personal Items : Wallet Personal Items Disposition : Bedside, With family Lorena Brannon RN - 01/28/2021 9:21 EDT Pain Scale Intensity : 0 Lorena Brannon RN - 01/28/2021 9:21 EDT Image 4 - Images currently included in the form version of this document have not been included in the text rendition version of the form. Electronically signed by Katie Pizarro Conversion Hide And Skin Fleshing Machine Operator Cerner at 02/16/2023 3:46 PM CDT documented in this encounter Plan of Treatment Upcoming Encounters Date Type Department Care Team (Late st Contact Info) Description 03/10/2025 1:15 PM EDT Office Visit [facility] Cardiology - [place] [address] [place] [address] Tabby Mcallister PA-C [address] [facility] [address] [place] [address] documented as of this encounter Visit Diagnoses Not on filedocumented in this encounter Care Teams Truck Jumper Relationship Specialty Start Date End Date Stacy Moise PA PCP - General 03/02/23 documented as of this encounter
--- OUTSIDE RECORDS SUMMARY | 2024-09-30 17:10 | XMS_ITS | Encounter Summary ---
Author Organization [facility] Address [address] [place] [address] Care Team Providers Care Cost Recorder Name Role Phone Unavailable Primary Care Provider Unavailabl e Encounter Details Date Type Department Care Team (Late st Contact Info) Description 05/05/2021 Historic Encounter [facility] Radiology [address] [place] [address] Ceasar Brandon MD [facility] [address] Social History Tobacco Use Types [...] Visit [facility] Cardiology - [place] [address] [place] [address] Tabby Mcallister PA-C [address] [place] [address] [address] [place] [address] documented as of this encounter Procedures Procedure Name Priority Date/Time Associated Diagnosis Comments CT BRAIN WITHOUT IV CONTRAST STAT 05/05/2021 2:15 PM EDT CBC W/ AUTO DIFF ([facility] BKR DATA CONV) Routine 05/05/2021 1:55 PM EDT AUTOMATED DIFFERENTIAL ([facility] BKR DATA CONV) Routine 05/05/2021 1:55 PM EDT BMP BASIC METABOLIC PANEL ([facility] BKR DATA CONV) Routine 05/05/2021 1:30 PM EDT documented in this encounter Results * CT brain without IV contrast (05/05/2021 2:15 PM EDT) Anatomical Region Laterality Modality Brain, Head Computed Tomogra phy 05/05/2021 2:15 PM EDT Narrative 05/05/2021 6:[address] ? 05/05/2021 12:53 PM HISTORY: Headache. COMPARISON: November 2020 TECHNIQUE: Multiple axial CT images were performed from the foramen magnum to the vertex. This study was performed with techniques to keep radiation doses as low as reasonably achievable, (ALARA). Individualized dose reduction techniques using automated exposure control or adjustment of mA and/or kV according to the patient size were employed. FINDINGS: The ventricles are normal in size. There is no evidence of hemorrhage. No masses are identified. No extra-axial fluid is seen. The sinuses are normal. ? IMPRESSION: No acute intracranial process. ?? Images reviewed, interpreted, and dictated by Abhijit Brandon MD Procedure Note Ceasar Brandon MD - 02/17/[address] 05/05/2021 12:53 PM HISTORY: Headache. COMPARISON: November 2020 TECHNIQUE: Multiple axial CT images were performed from the foramen magnum to the vertex. This study was performed with techniques to keep radiation doses as low as reasonably achievable, (ALARA). Individualized dose reduction techniques using automated exposure control or adjustment of mA and/or kV according to the patient size were employed. FINDINGS: The ventricles are normal in size. There is no evidence of hemorrhage. No masses are identified. No extra-axial fluid is seen. The sinuses are normal. IMPRESSION: No acute intracranial process. Images reviewed, interpreted, and dictated by Abhijit Brandon MD us Ceasar Brandon MD IMG CT ORDERABLES Final R esult * (ABNORMAL) CBC W/ AUTO DIFF ([facility] BKR DATA CONV) (05/05/2021 1:55 PM EDT) WBC 10.6(H) 3.6 - 9.5 K/uL 05/05/2021 6:02 PM EDT RBC 4.14(L) 4.20 - 5.70 Million/uL 05/05/2021 6:02 PM EDT Hgb 9.6(L) 13.5 - 17.3 g/dL 05/05/2021 6:02 PM EDT Hct 31.6(L) 40.1 - 51.0 % 05/05/2021 6:02 PM EDT MCV 76.3(L) 79.0 - 94.8 fL 05/05/2021 6:02 PM EDT MCH 23.2(L) 25.6 - 32.2 pg 05/05/2021 6:02 PM EDT MCHC 30.4(L) 32.2 - 36.5 Gram/dL 05/05/2021 6:02 PM EDT RDW 14.9 11.7 - 14.9 % 05/05/2021 6:02 PM EDT Platelet Count 442(H) 163 - 369 K/uL 05/05/2021 6:02 PM EDT MPV 9.4 9.4 - 12.4 fL 05/05/2021 6:02 PM EDT Slide Review No 05/05/2021 6:02 PM EDT Blood 05/05/2021 1:55 PM EDT 05/05/2021 6:00 PM EDT Narrative [facility] - 05/05/2021 6:02 PM EDT questionable results called to Clotilde MCKEON, recollect requested 05/05/2021 13:50:40 EDT km [facility] Historical Provider LAB BLOOD ORDERABLES Fi nal Result [facility] [address] [place] [address], [facility] [phone] * (ABNORMAL) AUTOMATED DIFFERENTIAL ([facility] BKR DATA CONV) (05/05/2021 1:55 PM EDT) Neut% 60.2 34.0 - 71.0 % 05/05/2021 6:02 PM EDT Lymph% 22.9 19.3 - 53.1 % 05/05/2021 6:02 PM EDT [place]% 12.5(H) 3.0 - 9.0 % 05/05/2021 6:02 PM EDT Eos% 3.3 0.0 - 7.0 % 05/05/2021 6:02 PM EDT Baso% 0.5 0.0 - 1.5 % 05/05/2021 6:02 PM EDT IG% 0.60 0.00 - 0.60 % 05/05/2021 6:02 PM EDT Neut# 6.37(H) 1.56 - 6.13 K/uL 05/05/2021 6:02 PM EDT Lymph# 2.42 1.00 - 3.90 x10(3)/uL 05/05/2021 6:02 PM EDT [place]# 1.32(H) 0.16 - 1.00 K/uL 05/05/2021 6:02 PM EDT Eos# 0.35 0.00 - 0.80 x10(3)/uL 05/05/2021 6:02 PM EDT Baso# 0.05 0.00 - 0.20 x10(3)/uL 05/05/2021 6:02 PM EDT IG# 0.06(H) 0.00 - 0.05 x10(3)/uL 05/05/2021 6:02 PM EDT Blood 05/05/2021 1:55 PM EDT 05/05/2021 6:00 PM EDT Narrative [facility] - 05/05/2021 6:02 PM EDT Added by Discern Expert us [facility] Historical Provider LAB BLOOD ORDERABLES Fi nal Result [facility] [address] [place] [address], [facility] [phone] * (ABNORMAL) BMP BASIC METABOLIC PANEL ([facility] BKR DATA CONV) (05/05/2021 1:30 PM EDT) [facility] Glucose Level 123(H) 74 - 106 mg/dL 05/05/2021 5:57 PM EDT Comment: [employer] has become aware of sulfasalazine and sulfapyridine [...] administration of the drug. Blood Urea Nitrogen 18 7 - 22 mg/dL 05/05/2021 5:57 PM EDT Creatinine Level 1.20 0.70 - 1.30 mg/dL 05/05/2021 5:57 PM EDT Sodium Level 139 136 - 146 mmol/L 05/05/2021 5:57 PM EDT Potassium Level 3.9 3.5 - 5.1 mmol/L 05/05/2021 5:57 PM EDT Chloride Level 109 102 - 112 mmol/L 05/05/2021 5:57 PM EDT Carbon Dioxide Level 24 21 - 32 mmol/L 05/05/2021 5:57 PM EDT Anion Gap 10 9 - 20 05/05/2021 5:57 PM EDT Calcium Level 8.7 8.4 - 10.1 mg/dL 05/05/2021 5:57 PM EDT Bun/Creatinine 15.0 8.0 - 20.0 05/05/2021 5:57 PM EDT eGFR NonAfrican 59(L) >=60 mL/min/1. 73m2 05/05/2021 5:58 PM EDT Comment: GFR <60 suggests chronic kidney disease, if found over 3 month period. GFR <15 indicates renal failure. eGFR >60 >=60 mL/min/1. 73m2 05/05/2021 5:58 PM EDT Comment: GFR <60 suggests chronic kidney disease, if found over 3 month period. GFR <15 indicates renal failure. Blood 05/05/2021 1:30 PM EDT 05/05/2021 5:38 PM EDT [facility] Historical Provider LAB BLOOD ORDERABLES Fi nal Result [facility] [address] [phone] documented in this encounter Visit Diagnoses Not on filedocumented in this encounter
--- OUTSIDE RECORDS SUMMARY | 2024-09-30 17:10 | XMS_ITS | Encounter Summary ---
Author Organization [facility] [employer] Address [address] [place] [address] Care Team Providers Care Rfid Systems Engineer Name Role Phone Stacy Moise Primary Care Provider [phone] Encounter Details Date Type Department Care Team (Late st Contact Info) Description 08/28/2021 Transcribed Document [facility] [facility] [place] [address] ProviderMireya MD [address] [place] [id number] Social History Tobacco Use Types Packs/Day Years Used Date Smoking Tobacco: Never Assessed Sex and Gender Information Value Date Recorded Sex Assigned at Not on file Legal Sex Male 5:25 PM CDT Gender Identity Not on file Sexual Orientation Not on file documented as of this encounter Miscellaneous Notes * Cerner Conversion Note - Mireya Osuna MD - 08/28/2021 10:05 PM CDT ED Discharge Entered On: 08/28/2021 22:05 EDT Performed On: 08/28/2021 22:05 EDT by Shelby Sánchez RN-PATIENT CARE BEDSIDE NON-EXEMPT Discharge Process Patient Disposition : Discharge Patient Education Completed : Yes Teaching Evaluation : Returns demonstration, Verbalizes understanding IV Discontinued : Yes Nursing Documentation Completed : Yes Shelby Sánchez RN-PATIENT CARE BEDSIDE NON-EXEMPT - 08/28/2021 22:05 EDT ED Discharge Discharge To : Home with ambulatory/outpatient follow-up Mode Of Departure : Ambulatory Accompanied By : Spouse Discharge Instructions Reviewed With, Opportunity For Questions Given : Patient Shelby Sánchez RN-PATIENT CARE BEDSIDE NON-EXEMPT - 08/28/2021 22:05 EDT Electronically signed by Interface, Sjh Conversion Centerless Grinding Machine Adjuster Cerner at 02/16/2023 4:11 PM CDT documented in this encounter Plan of Treatment Upcoming Encounters Date Type Department Care Team (Late st Contact Info) Description 03/10/2025 1:15 PM EDT Office Visit [facility] Cardiology - [place] [address] [place] [address] Tabby Mcallister PA-C [address] [facility] [address] [place] [address] documented as of this encounter Visit Diagnoses Not on filedocumented in this encounter Care Teams Rfid Systems Engineer Relationship Specialty Start Date End Date Stacy Moise PA PCP - General 03/02/23 documented as of this encounter
--- OUTSIDE RECORDS SUMMARY | 2024-09-30 17:10 | XMS_ITS | Encounter Summary ---
Author Organization [employer] Address [address] [facility] [place] [address] Care Team Providers Care Advanced Clinical Specialist Name Role Phone Stacy Moise Primary Care Provider [phone] Encounter Details Date Type Department Care Team (Late st Contact Info) Description 11/26/2021 Transcribed Document [facility] [place] [address] ProviderMireya MD [address] [place] [address] [phone] Social History Tobacco Use Types Packs/Day Years Used Date Smoking Tobacco: Never Assessed Sex and Gender Information Value Date Recorded Sex Assigned at Not on file Legal Sex Male 5:25 PM CDT Gender Identity Not on file Sexual Orientation Not on file documented as of this encounter Miscellaneous Notes * Cerner Conversion Note - Mireya ProviderMD - 11/26/2021 6:00 PM REAL ESTATE ECONOMIST ED Discharge Entered On: 11/26/2021 18:01 EST Performed On: 11/26/2021 18:00 EST by Funmilayo Alfonso RN-PATIENT CARE BEDSIDE NON-EXEMPT Discharge Process Patient Disposition : Discharge Personal Belongings With Patient : Yes Patient Education Completed : Yes Teaching Evaluation : Verbalizes understanding IV Discontinued : Yes Nursing Documentation Completed : Yes Funmilayo Alfonso RN-PATIENT CARE BEDSIDE NON-EXEMPT - 11/26/2021 18:00 EST ED Discharge Discharge To : Home with ambulatory/outpatient follow-up Mode Of Departure : Private vehicle Accompanied By : Spouse Prescriptions Given to Patient : No Funmilayo Alfonso RN-PATIENT CARE BEDSIDE NON-EXEMPT - 11/26/2021 18:00 EST documented in this encounter Plan of Treatment Upcoming Encounters Date Type Department Care Team (Late st Contact Info) Description 03/10/2025 1:15 PM EDT Office Visit [facility] Cardiology - [place] [address] [place] [address] Tabby Mcallister PA-C [address] [facility] [address] [place] [address] documented as of this encounter Visit Diagnoses Not on filedocumented in this encounter Care Teams Advanced Clinical Specialist Relationship Specialty Start Date End Date Stacy Moise PA PCP - General 03/02/23 documented as of this encounter
--- OUTSIDE RECORDS SUMMARY | 2024-09-30 17:10 | XMS_ITS | Encounter Summary ---
Author Organization [employer] [facility] [employer] Address [address] [facility] [place] [address] Care Team Providers Care Curing Bin Operator Name Role Phone Stacy Moise Primary Care Provider [phone] Encounter Details Date Type Department Care Team (Late st Contact Info) Description 05/05/2021 Transcribed Document [facility] [place] Family Medicine [facility] [place] [address] ProviderMireya MD [address] [place] [id number] Social History Tobacco Use Types Packs/Day Years Used Date Smoking Tobacco: Never Assessed Sex and Gender Information Value Date Recorded Sex Assigned at Not on file Legal Sex Male 5:25 PM CDT Gender Identity Not on file Sexual Orientation Not on file documented as of this encounter Miscellaneous Notes * Cerner Conversion Note - Mireya ProviderMD - 05/05/2021 12:36 PM CDT ED Assessment Entered On: 05/05/2021 12:57 EDT Performed On: 05/05/2021 12:53 EDT by MALINA MANDUJANO RN ED Quick Look Assessment Level of Consciousness : Alert, Awake Affect/Behavior : Appropriate, Calm, Cooperative Orientation : Oriented x 4 Skin Temperature : Warm MALINA MANDUJANO RN - 05/05/2021 12:53 EDT ED General-Functional Assess Information Obtained From : Patient Preferred Communication Mode : Verbal Communication Barrier : None Primary Language : Citizen Of [place] Any Spiritual/Cultural Needs or Requests : No Currently in Unsafe Situation : No MALINA MANDUJANO RN - 05/05/2021 12:53 EDT Social Habits Smoking Status : Smoker, current status unknown Smokeless Tobacco Status : Never Desires Tobacco Cessation Medication : No Reason for No Tobacco Cessation Medication : Refuses FDA approved medications Desires Tobacco Cessation Calc : 1 MALINA MANDUJANO RN - 05/05/2021 12:53 EDT Social History (As Of: 05/05/2021 12:57:33 EDT) Tobacco: Smoking Status Current every day [...] Cardiovascular Assessment WDL : WDL with exceptions MALINA MANDUJANO RN - 05/05/2021 12:53 EDT Neurologic ASMT, ED Neurologic Assessment WDL : WDL with exceptions (Comment: Pt presents to the ER wih pain behind his left eye and a headache. States symptoms have been present for several weeks. Pt denies any dizzinezz, weakness, or blurred vision. States his left eye does occasionally water. 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 Deneis nausea and vomiting. Speech clear. [MALINA MANDUJANO RN - 05/05/2021 12:53 EDT] ) Neurological Symptoms : Headache Level of Consciousness : Alert, Awake Affect/Behavior : Appropriate, Calm, Cooperative Orientation : Oriented x 4 Pupils Equal, Round, Reactive to Light : Yes Pupil Description, Left : Regular, Round Pupil Reaction, Left : Brisk Pupil Description, Right : Regular, Round Pupil Reaction, Right : Brisk MALINA MANDUJANO RN - 05/05/2021 12:53 EDT Electronically signed by [facility] Conversion Office Associate Cerner at 02/16/2023 4:06 PM CDT documented in this encounter Plan of Treatment Upcoming Encounters Date Type Department Care Team (Late st Contact Info) Description 03/10/2025 1:15 PM EDT Office Visit [facility] Cardiology - [place] [address] [place] [address] Tabby Mcallister PA-C [address] [facility] [address] [place] [address] documented as of this encounter Visit Diagnoses Not on filedocumented in this encounter Care Teams Curing Bin Operator Relationship Specialty Start Date End Date Stacy Moise PA PCP - General 03/02/23 documented as of this encounter
--- OUTSIDE RECORDS SUMMARY | 2024-09-30 17:10 | XMS_ITS | Encounter Summary ---
Author Organization [employer] Address [address] [place] [id number] Care Team Providers Care Visual And Stock Associate Name Role Phone Stacy Moise Primary Care Provider [phone] Encounter Details Date Type Department Care Team (Late st Contact Info) Description 11/26/2021 Transcribed Document [facility] [place] [address] ProviderMireya MD [address] [place] [id number] Social History Tobacco Use Types Packs/Day Years Used Date Smoking Tobacco: Never Assessed Sex and Gender Information Value Date Recorded Sex Assigned at Not on file Legal Sex Male 5:25 PM CDT Gender Identity Not on file Sexual Orientation Not on file documented as of this encounter Miscellaneous Notes * Cerner Conversion Note - Mireya ProviderMD - 11/26/2021 11:29 AM BEACH ATTENDANT [place] Suicide Severity Rating Scale (C-SSRS) Entered On: 11/26/2021 11:51 EST Performed On: 11/26/2021 11:51 EST by Funmilayo Alfonso RN-PATIENT CARE BEDSIDE NON-EXEMPT [place] Suicide Severity Rating Scale (C-SSRS) CSSRS Past Month Wish to be : No CSSRS Past Month Suicidal Thoughts : No CSSRS Lifetime Suicide Behavior : No Suicide Severity Rating Score : 0 Suicide Severity Rating : No Additional Care Required at this time Funmilayo Alfonso RN-PATIENT CARE BEDSIDE NON-EXEMPT - 11/26/2021 11:51 EST documented in this encounter Plan of Treatment Upcoming Encounters Date Type Department Care Team (Late st Contact Info) Description 03/10/2025 1:15 PM EDT Office Visit [facility] Cardiology - [place] [address] [place] [address] Tabby Mcallister PA-C 227 [facility] [address] [place] [address] documented as of this encounter Visit Diagnoses Not on filedocumented in this encounter Care Teams Visual And Stock Associate Relationship Specialty Start Date End Date Stacy Moise PA PCP - General 03/02/23 documented as of this encounter
--- OUTSIDE RECORDS SUMMARY | 2024-09-30 17:10 | XMS_ITS | Encounter Summary ---
Author Organization [employer] Address [address] [facility] [facility] [address] [place] [address] Care Team Providers Care Php Engineer Name Role Phone Stacy Moise Primary Care Provider [phone] Encounter Details Date Type Department Care Team (Late st Contact Info) Description 08/29/2021 Transcribed Document [facility] [place] [address] ProviderMireya MD [address] [place] [address] Social History Tobacco Use Types Packs/Day Years Used Date Smoking Tobacco: Never Assessed Sex and Gender Information Value Date Recorded Sex Assigned at Not on file Legal Sex Male 5:25 PM CDT Gender Identity Not on file Sexual Orientation Not on file documented as of this encounter Miscellaneous Notes * Cerner Conversion Note - Historical ProviderMD - 08/29/2021 6:19 PM CDT CR Chest 1 Vw Portable Ordered: 08/28/2021 Modified Reason for Exam: pain 08/29/2021 10:32 08/29/2021 18:19 (MICHAEL PARKS) No further action required documented in this encounter Plan of Treatment Upcoming Encounters Date Type Department Care Team (Late st Contact Info) Description 03/10/2025 1:15 PM EDT Office Visit [facility] Cardiology - [place] [address] [place] [address] Tabby Mcallister PA-C [address] [place] [address] documented as of this encounter Visit Diagnoses Not on filedocumented in this encounter Care Teams Php Engineer Relationship Specialty Start Date End Date Stacy Moise PA PCP - General 03/02/23 documented as of this encounter
--- OUTSIDE RECORDS SUMMARY | 2024-09-30 17:10 | XMS_ITS | Encounter Summary ---
Author Organization [employer] Address [address] [facility] [place] [address] Care Team Providers Care Hardwood Floor Installation Helper Name Role Phone Sudhir Payotn Primary Care Provider Encounter Details Date Type Department Care Team (Late st Contact Info) Description 11/26/2021 Transcribed Document [facility] Family Medicine [facility] [place] [address] ProviderMireya MD [address] [place] [address] [id number] Social History Tobacco Use Types Packs/Day Years Used Date Smoking Tobacco: Never Assessed Sex and Gender Information Value Date Recorded Sex Assigned at Not on file Legal Sex Male 5:25 PM CDT Gender Identity Not on file Sexual Orientation Not on file documented as of this encounter Miscellaneous Notes * Cerner Conversion Note - Mireya Osuna MD - 11/26/2021 12:39 PM FISHERMAN HELPER Patient: SCOTTIE CURRAN Age: 76 years Sex: Male : 1945 Associated Diagnoses: Nonspecific chest pain Author: VANESSA GOMES MD-EMR Basic Information Additional information: Chief Complaint from Nursing Triage Note : Chief Complaint 11/26/2021 11:37 EST Chief Complaint c/o MSCP intermittently x 2 weeks. Nonexertional, denies SOA, palpitations, n/v, diaphoresis. Hx CAD s/p stents. Took SL NTG x 3 COMBINATION MAN without relief. Sees cards. Secondary c/o kidney pains on the left side x 5 days. . History of Present Illness The patient is a 76-year-old male. He does have a history of white mountain vessel coronary artery disease with multiple PCI's. He has also a history of peripheral vascular disease and ongoing tobacco abuse. He presents today with recurrent midsternal chest pain for the last 2 weeks. It has been burning in nature and is not associated with exertion. No shortness of breath, no palpitation, no nausea or vomiting. Likewise denies diaphoresis. His last cardiac catheterization is dated 03/08/2020. At that time patient was noted to have patent stents in the LAD, left circumflex flex artery, and right coronary artery. LV function normal. Ejection fraction 60% with normal resting hemodynamics. At that time plan of action was to continue medical management and risk factor modification Pain is burning in nature. Some radiation to the left chest area. Pt does admit to h/o GERD. Pt does report difficulty controlling his hypertension at home. Pt reports increased fatigue over the last 2 months. Review of Systems Constitutional symptoms: Negative except [...] symptoms: Negative except as documented in HPI. Psychiatric symptoms: Negative except as documented in HPI. Endocrine symptoms: Negative except as documented in HPI. Hematologic/Lymphatic symptoms: Negative except as documented in HPI. Allergy/immunologic symptoms: Negative except as documented in HPI. Additional review of systems information: All other systems reviewed and otherwise negative, All systems reviewed as documented in chart. Health Status Allergies: Allergic Reactions (Selected) No Known Medication Allergies. Past Medical/ Family/ Social History Surgical history: heart cath in 2017 at 72 Years. cardiac stents. left lower extremity vascular stent x2. hand surgery. S/P cholecystectomy ([id number]). colon resection. Cataract surgery ([id number]). Colonoscopy ([id number]). renal stent///2018. right leg balloon. back fusion [...] Physical Examination Vital Signs Vital Signs/Vital Measures 11/26/2021 11:37 EST Systolic Blood Pressure 190 mmHg HI Diastolic Blood Pressure 80 mmHg Temperature Source Oral Temperature Mode Fahrenheit Temperature, Fahrenheit 97.8 Deg F Clinical Temperature, C 36.6 Deg C Peripheral Pulse Rate 60 bpm Respiratory Rate 16 Breaths/Min Oxygen Saturation 98 % Oxygen Therapy Mode Room air . Measurements 11/26/2021 11:37 EST Height Source Stated Height Entry Format [place] Height/Length, SOMALI (ft) 5 ft Height/Length SOMALI 9 Inch CLINICALHEIGHT 175.26 cm [place] Body Weight 69.73 kg Weight Source, ED Critical estimated dosing weight Weight Entry Format [place] Weight Salv[place] lb 174 lb CLINICALWEIGHT 79.09 kg Body Surface Area (BSA) 1.95 m2 Body Mass Index 25.7 kg/m2 HI . Oxygen Saturation 11/26/2021 11:37 EST Oxygen Saturation 98 % . General: Alert, no acute distress. Skin: Warm, dry, intact. Head: Normocephalic, atraumatic. Neck: Supple. Eye: Pupils are equal, round and reactive to light, extraocular movements are intact. Ears, nose, mouth and throat: Oral mucosa moist. Cardiovascular: Regular rate and rhythm, Normal peripheral perfusion, No edema. Respiratory: Lungs are clear to auscultation, respirations are non-labored. Gastrointestinal: Soft, Nontender, Non distended, Normal bowel sounds. Back: Nontender, Normal range of motion. Musculoskeletal: Normal ROM, normal strength. Neurological: Alert and oriented to person, place, time, and situation, No focal neurological deficit observed, normal sensory observed, normal motor observed, normal speech observed, normal coordination observed. Lymphatics: No lymphadenopathy. Psychiatric: Cooperative. Medical Decision Making Documents reviewed: Emergency department nurses' notes. Orders Include Previous Orders (Selected) Inpatient Orders Ordered Cardiac Monitoring: EKG: Completed .Automated Differential: .Urinalysis Microscopic: Broset Violence Assessment: CBC w/ Auto Diff: CMP Comprehensive Metabolic Panel: CR Chest 1 Vw Portable: ECG: ED Adult Fall Risk Assessment: ED Adult Triage: ED C-SSRS: ED Clinical Reconciliation: ED egg gatherer: Magnesium Level: PT/INR Prothrombin Time: Peripheral IV Insertion: ProBNP: Troponin I Ultra: Troponin I Ultra: Urinalysis UA Rflx Microscopic Cult if Ind: aspirin: 324 mg, Chew, 1-Time. Electrocardiogram: Time 11/26/2021 11:35:00, rate 62, normal sinus rhythm, Nonspecific ST changes. No acute ST elevations. Results review: Lab results : Lab Results 11/26/2021 15:15 EST Troponin I Ultra <0.015 ng/mL 11/26/2021 13:04 EST Specimen Type, Urine POC Urine Action Taken, Urine Testing Orders received 11/26/2021 12:12 EST Sodium Level 140 mmol/L Potassium Level 3.6 mmol/L Chloride Level 109 mmol/L Carbon Dioxide Level 23 mmol/L Anion Gap 12 Glucose Level 132 mg/dL HI Blood Urea Nitrogen 20 mg/dL Creatinine Level 1.10 mg/dL eGFR >60 mL/min/1.73m2 eGFR NonAfrican >60 mL/min/1.73m2 Bun/Creatinine 18.2 Calcium Level 9.0 mg/dL Protein Total 7.4 Gram/dL Albumin Level 3.7 Gram/dL Globulin 3.7 Gram/dL A/G Ratio 1.0 LOW Bilirubin Total 0.3 mg/dL Alk Phos 79 Units/Liter AST 12 Units/Liter ALT 25 Units/Liter Magnesium Level 2.7 mg/dL HI Troponin I Ultra <0.015 ng/mL ProBNP 57 pg/mL WBC 10.9 K/uL HI RBC 4.55 Million/uL Hgb 14.0 g/dL Hct 40.6 % MCV 89.2 fL MCH 30.8 pg MCHC 34.5 Gram/dL Platelet Count 334 K/uL MPV 9.6 fL RDW 12.7 % Neut % 63.2 % Neut # 6.88 K/uL HI Lymph % 20.0 % Lymph # 2.18 x10(3)/uL Hernando % 13.0 % HI Hernando # 1.42 K/uL HI Eos % 2.6 % Eos # 0.28 x10(3)/uL Baso % 0.5 % Baso # 0.05 x10(3)/uL Slide Review No IG# 0.08 x10(3)/uL HI IG% 0.70 % HI PT 10.9 Second(s) INR 1.0 11/26/2021 11:57 EST Urine Type. U CleanCatch Urine Color Yellow Urine Appearance Cloudy Urine Specific Gurley 1.018 Urine pH Dipstick 6.0 Urine Leukocyte Esterase Negative Urine Nitrite Negative Urine Protein Dipstick Negative Urine Glucose Dipstick Negative Urine Ketones Dipstick Negative Urine Urobilinogen Dipstick 1.0 EU/dL Urine Bilirubin Dipstick Negative Urine Blood Dipstick Negative Ur WBC 0-2 /HPF Ur Mucous Trace Ur Epithelial Cells 0-2 /HPF Urine Culture if Indicated Not Indicated . Radiology results: Radiology Results (Last 48 hours) [id number] -- 11/26/2021 11:29 CR Chest 1 Vw Portable (11/26/2021 12:16) Result: PORTABLE CHEST 11/26/2021 11:56 AM HISTORY: Anterior chest pain.COMPARISON: August 28, 2021FINDINGS: The heart is proper size. The mediastinum is unremarkable. Diffuse interstitial changes are probably chronic. The lungs areotherwise clear. There is no pneumothorax. The osseous structures areunremarkable.IMPRESSION: No acute cardiopulmonary process. Continued follow-up is recommended.Images reviewed, interpreted, and dictated by Dr. Abhijit Brandon.Transcribed by Buck Harden(R).I have personally viewed, interpreted and dictated the examination. Kevin read and agree with the above final transcribed report. . Reexamination/ Reevaluation Time: 11/26/2021 17:36:00 . Interventions: I did consult with [place] cardiology. They are going to notify the patient in the morning for immediate follow-up in the clinic. I spoke at length with Mr. Curran and his . 2 troponins are negative including 2 nonischemic EKGs. Impression and Plan Diagnosis Nonspecific chest pain - Discharge, Emergency medicine, Medical Plan Condition: Improved, Stable. Patient was given the following educational materials: Nonspecific Chest Pain, Adult. Follow up with: SUDHIR PAYTON Within 2 to 3 days; ; KOFI MCALLISTER Within 2 to 3 days [facility] cardiology office will call you in the am to set up followup. Today we do not see any evidence of heart attack on either the EKG or the blood work. We are still happy to see you at any time should you develop chest pain that does not relent with nitroglycerin.. documented in this encounter Plan of Treatment Upcoming Encounters Date Type Department Care Team (Late st Contact Info) Description 03/10/2025 1:15 PM EDT Office Visit [facility] Cardiology - [address] [phone] Kofi Mcallister PA-C [address] [place] [phone] documented as of this encounter Visit Diagnoses Not on filedocumented in this encounter Care Teams Hardwood Floor Installation Helper Relationship Specialty Start Date End Date Sudhir Payton PA PCP - General 03/02/23 documented as of this encounter
--- OUTSIDE RECORDS SUMMARY | 2024-09-30 17:11 | XMS_ITS | Encounter Summary ---
Author Organization [employer] Address [address] [place], [place] [address] [address] Care Team Providers Care Web Merchandiser Name Role Phone Stacy Moise Primary Care Provider [phone] Encounter Details Date Type Department Care Team (Late st Contact Info) Description 03/12/2020 Transcribed Document [facility] Family Medicine [address] [place] [address] ProviderMireya MD [address] [place] [id number] Social History Tobacco Use Types Packs/Day Years Used Date Smoking Tobacco: Never Assessed Sex and Gender Information Value Date Recorded Sex Assigned at Not on file Legal Sex Male 5:25 PM CDT Gender Identity Not on file Sexual Orientation Not on file documented as of this encounter Miscellaneous Notes * Cerner Conversion Note - Mireya ProviderMD - 03/12/2020 1:12 PM CDT Initial Discharge Planning Entered On: 03/12/2020 13:14 EDT Performed On: 03/12/2020 13:12 EDT by FLAKO POLLACK RN-Fourdrinier Tender Initial Assessment I Previously Documented Living Environment : No qualifying data available. FLAKO POLLACK RN-Fourdrinier Tender - 03/12/2020 13:23 EDT Living Situation : Home Patient Lives With : Spouse Employment/Vocation : Retired Emergency Contact #1 : Joan Emergency Contact #1 Emergency Contact #1 Relationship : Emergency Contact #2 : none Emergency Contact #2 Phone Number : none Emergency Contact #2 Relationship : none Enter Doctors Name : Christiano May Does Patient have PCP Listed? : Yes Legal Guardian : No FLAKO POLLACK RN-Fourdrinier Tender - 03/12/2020 13:12 EDT Initial Assessment II Sensory and Motor Deficits : None Current Home Treatments and Equipment : None FLAKO POLLACK RN-Fourdrinier Tender - 03/12/2020 13:16 EDT Discharge Needs I Anticipated Discharge Date : 03/12/2020 EDT Anticipated Discharge To, CM : Home independently Current Home Treatment/Equipment : Current Home Treatment/Equipment No qualifying data available. Post Acute/Home Treatments : None Documentation Status Complete : Yes FLAKO POLLACK RN-Fourdrinier Tender - 03/12/2020 13:16 EDT Discharge Needs II Professional Skilled Services : Professional Skilled Services No qualifying data available. Needs Assistance with Transportation : No Discharge Options Discussed with Patient : Other: Home FLAKO POLLACK RN-Fourdrinier Tender - 03/12/2020 13:16 EDT Narrative Note Narrative Note : Patient is a low readmission risk. ELOS: OBS 74 year old male presented to ER with stroke like symptoms. Recent LHC at [facility]. Left sided facial tingling and numbness, mild left side headache. Previously on Plavix, discontinued in August of 2019 due to GI bleed. Current smoker. Patient lives with his , Joan in [place]. Patient's PCP is Dr. Christiano May. Patiient is ADL independent. No prior rehab stay, home health, oxygen or DME. will transport home on discharge. DCP: Anticipate patient will discharge home with . No referral needs identified at this time. FLAKO POLLACK RN-Fourdrinier Tender - 03/12/2020 13:23 EDT Electronically signed by [facility] Conversion Transmission And Coordination Engineer Cerner at 02/16/2023 3:54 PM CDT documented in this encounter Plan of Treatment Upcoming Encounters Date Type Department Care Team (Late st Contact Info) Description 03/10/2025 1:15 PM EDT Office Visit [facility] Cardiology - [place] [address] [place] [address] Tabby Mcallister PA-C [address] [facility] [address] [place] [address] documented as of this encounter Visit Diagnoses Not on filedocumented in this encounter Care Teams Web Merchandiser Relationship Specialty Start Date End Date Stacy Moise PA PCP - General 03/02/23 documented as of this encounter
--- OUTSIDE RECORDS SUMMARY | 2024-09-30 17:11 | XMS_ITS | Encounter Summary ---
Author Organization [employer] Address [address] [place] [address] Care Team Providers Care Bleach Boiler Packer Name Role Phone Stacy Moise Primary Care Provider [phone] Encounter Details Date Type Department Care Team (Late st Contact Info) Description 03/11/2020 Transcribed Document [facility] [place] [address] [place] [address] ProviderMireya MD [address] [place], [place] [address]441 Social History Tobacco Use Types Packs/Day Years Used Date Smoking Tobacco: Never Assessed Sex and Gender Information Value Date Recorded Sex Assigned at Not on file Legal Sex Male 5:25 PM CDT Gender Identity Not on file Sexual Orientation Not on file documented as of this encounter Miscellaneous Notes * Cerner Conversion Note - Mireya ProviderMD - 03/11/2020 2:09 PM CDT UM Authorization Entered On: 03/11/2020 14:09 EDT Performed On: 03/11/2020 14:09 EDT by ASHWINI PAZ RN Primary Insurance Authorization Authorization and Policy Numbers : Insurance 1 Health Plan: MEDICARE Policy Number: [id number] Authorization Number: Insurance 2 Health Plan: [employer] Policy Number: [id number] Authorization Number: Insurance Primary Name : MEDICARE Policy Number: [id number] Authorized Service Begin Date-Primary : 03/10/2020 EDT Historical Authorization Comments-Primary : No Authorization Comments Found ASHWINI PAZ RN - 03/11/2020 14:09 EDT Electronically signed by [facility] Conversion Referral And Information Aide Cerner at 02/16/2023 3:58 PM CDT documented in this encounter Plan of Treatment Upcoming Encounters Date Type Department Care Team (Late st Contact Info) Description 03/10/2025 1:15 PM EDT Office Visit [facility] Cardiology - [place] [address] [place] [address] Tabby Mcallister PA-C [address] [phone] documented as of this encounter Visit Diagnoses Not on filedocumented in this encounter Care Teams Bleach Boiler Packer Relationship Specialty Start Date End Date Stacy Moise PA PCP - General 03/02/23 documented as of this encounter
--- OUTSIDE RECORDS SUMMARY | 2024-09-30 17:11 | XMS_ITS | Encounter Summary ---
Author Organization [employer] Address [address] [place] [address] Care Team Providers Care Thermodynamics Engineer Name Role Phone Stacy Moise Primary Care Provider [phone] Encounter Details Date Type Department Care Team (Late st Contact Info) Description 11/26/2020 Transcribed Document [facility] Family Medicine [facility] [place] [address] ProviderMireya MD [address] [place] [id number] Social History Tobacco Use Types Packs/Day Years Used Date Smoking Tobacco: Never Assessed Sex and Gender Information Value Date Recorded Sex Assigned at Not on file Legal Sex Male 5:25 PM CDT Gender Identity Not on file Sexual Orientation Not on file documented as of this encounter Miscellaneous Notes * Cerner Conversion Note - Mireya Osuna MD - 11/26/2020 6:35 PM FILER FINISH [facility] [place] [address] [facility] :1945 Visit Time:11/26/2020 Your Visit Summary Your Care Team Primary Provider: RUTHIE DE LA TORRE Secondary Provider: Your Diagnosis Head ache Pain in head Medical Information You may obtain a copy [...] do next Follow-Up Appointments Follow Up with Return to Emergency Department When Within As needed Comments Call for follow up appointment Follow-up as instructed Return if condition worsens Follow Up with Follow up with primary care provider When Within 1 to 2 days Follow Up with [facility] When Within 2 to 3 days Where: [address] [place] [address]- [employer] (1) Allergies No Known Medication Allergies Immunizations This Visit No Immunizations Found Medications What How Much When Instructions Next Dose amLODIPine (Norvasc 10 mg oral tablet) 1 Tablet(s) Oral Every Day aspirin (Aspir 81) 81 Milligram(s) Oral Every Day atorvastatin (Lipitor 20 mg oral tablet) 2 Tablet(s) Oral At Bedtime cetirizine (ZyrTEC) 10 Milligram(s) Oral Every Day as needed for as needed for allergy symptoms clopidogrel (Plavix 75 mg oral tablet) 1 Tablet(s) Oral Every Day cyanocobalamin (Vitamin B12) 1,000 Microgram(s) Oral Every Day esomeprazole (NexIUM 24HR 20 mg oral delayed release capsule) Oral Every Day finasteride (Proscar) 5 Milligram(s) Oral Every Day fluticasone nasal (Flonase) 2 [place](s) Nasal Every Other Day as needed for Allergies furosemide (furosemide 20 mg oral tablet) 1 Tablet(s) Oral Every Day gemfibrozil (Lopid 600 mg oral tablet) 1 Tablet(s) Oral Two Times A Day isosorbide mononitrate 30 Milligram(s) Oral Every Morning levothyroxine (Synthroid 25 mcg (0.025 mg) oral tablet) 0.5 Tablet(s) Oral Every Day nebivolol (Bystolic 10 mg oral tablet) 1 Tablet(s) Oral Every Day nitroglycerin (Nitrostat 0.4 mg sublingual tablet) 1 Tablet(s) SubLINgual Every 5 minutes as needed for Chest Pain potassium chloride (potassium chloride 20 mEq oral tablet, extended release) Oral Two Times A Day psyllium (Konsyl) Oral Every Other Day The home medications listed are only [...] This Visit (last charted value for your 11/26/2020 visit) Hematology 11/26/2020 5:54 PM WBC: 14.2 K/uL -- Normal range between ( 3.6 and 9.5 ) RBC: 4.35 Million/uL -- Normal range between ( 4.20 and 5.70 ) Hct: 39.0 % -- Normal range between ( 40.1 and 51.0 ) Hgb: 12.9 g/dL -- Normal range between ( 13.5 and 17.3 ) Platelet Count: 372 K/uL -- Normal range between ( 163 and 369 ) MCH: 29.7 pg -- Normal range between ( 25.6 and 32.2 ) MCHC: 33.1 Gram/dL -- Normal range between ( 32.2 and 36.5 ) MCV: 89.7 fL -- Normal range between ( 79.0 and 94.8 ) Slide Review: No Eos %: 1.7 % -- Normal range between ( 0.0 and 7.0 ) [place] #: 1.38 K/uL -- Normal range between ( 0.16 and 1.00 ) Eos #: 0.24 x10(3)/uL -- Normal range between ( 0.00 and 0.80 ) [place] %: 9.7 % -- Normal range between ( 3.0 and 9.0 ) Baso %: 0.3 % -- Normal range between ( 0.0 and 1.5 ) Baso #: 0.04 x10(3)/uL -- Normal range between ( 0.00 and 0.20 ) RDW: 13.7 % -- Normal range between ( 11.7 and 14.9 ) Neut %: 69.3 % -- Normal range between ( 34.0 and 71.0 ) Neut #: 9.86 K/uL -- Normal range between ( 1.56 and 6.13 ) Lymph %: 18.3 % -- Normal range between ( 19.3 and 53.1 ) Lymph #: 2.60 x10(3)/uL -- Normal range between ( 1.00 and 3.90 ) MPV: 10.0 fL -- Normal range between ( 9.4 and 12.4 ) IG#: 0.10 x10(3)/uL -- Normal range between ( 0.00 and 0.05 ) IG%: 0.70 % -- Normal range between ( 0.00 and 0.60 ) General Chemistry 11/26/2020 5:50 PM Glucose POC2: 106 mg/dL -- Normal range between ( 70 and 110 ) Device Comment 1: Device Comment 1 11/26/2020 12:30 PM Creatinine Level: 1.00 mg/dL -- Normal range between ( 0.70 and 1.30 ) Sodium Level: 139 mmol/L -- Normal range between ( 136 and 146 ) Potassium Level: 3.8 mmol/L -- Normal range between ( 3.5 and 5.1 ) Chloride Level: 111 mmol/L -- Normal range between ( 102 and 112 ) Carbon Dioxide Level: 23 mmol/L -- Normal range between ( 21 and 32 ) Anion Gap: 9 -- Normal range between ( 9 and 20 ) Bun/Creatinine: 19.0 -- Normal range between ( 8.0 and 20.0 ) Calcium Level: 9.4 mg/dL -- Normal range between ( 8.4 and 10.1 ) eGFR : >60 mL/min/1.73m2 eGFR NonAfrican: >60 mL/min/1.73m2 Glucose Level: 158 mg/dL -- Normal range between ( 74 and 106 ) Blood Urea Nitrogen: 19 mg/dL -- Normal range between ( 7 and 22 ) Cardiac Specific Markers 11/26/2020 12:30 PM Troponin I Ultra: <0.015 ng/mL -- Normal range between ( 0.015 and 0.045 ) Coagulation 11/26/2020 12:30 PM INR: 1.0 -- Normal range between ( 0.9 and 1.2 ) PTT: 26.1 Second(s) -- Normal range between ( 22.0 and 33.0 ) PT: 10.9 Second(s) -- Normal range between ( 9.2 and 12.0 ) Computed Tomography 11/26/2020 5:08 PM CTA Head: CTA Head CTA Neck: CTA Neck 11/26/2020 5:[address] Head WO: CT Head WO Education Materials General Headache Without Cause A headache is pain or discomfort felt around the head or neck area. The specific cause of a headache may not be found. There are many causes and types of headaches. A few common ones are: ??? Tension headaches. ??? Migraine headaches. ??? Cluster headaches. ??? Chronic daily headaches. Follow these instructions at home: Watch your condition for any changes. Let your health care provider know about them. Take these steps to help with your condition: Managing pain ??? Take mouz-xvb-flsjroy and prescription medicines only as told by your health care provider. ??? Lie down in a dark, quiet room when you have a headache. ??? If directed, put ice on your head and neck area: ? Put ice in a plastic bag. ? Place a towel between your skin and the bag. ? Leave the ice on for 20 minutes, 2???3 times per day. ??? If directed, apply heat to the affected area. Use the heat source that your health care provider recommends, such as a moist heat pack or a heating pad. ? Place a towel between your skin and the heat source. ? Leave the heat on for 20???30 minutes. ? Remove the heat if your skin turns bright red. This is especially important if you are unable to feel pain, heat, or cold. You may have a greater risk of getting burned. ??? Keep lights dim if bright lights bother you or make your headaches worse. Eating and drinking ??? Eat meals on a regular schedule. ??? If you drink alcohol: ? Limit [...] oz glass of hard liquor (44 mL). ??? Stop drinking caffeine, or decrease the amount of caffeine you drink. General instructions ??? Keep a headache journal to help find out what may trigger your headaches. For example, write down: ? What you eat and drink. ? How much sleep you get. ? Any change to your diet or medicines. ??? Try massage or other relaxation techniques. ??? Limit stress. ??? Sit up straight, and do not tense your muscles. ??? Do not use any products that contain nicotine or tobacco, such as cigarettes, e-cigarettes, and chewing tobacco. If you need help quitting, ask your health care provider. ??? Exercise regularly as told by your health care provider. ??? Sleep on a regular schedule. Get 7???9 hours of sleep each night, or the amount recommended by your health care provider. ??? Keep all follow-up visits as told by your health care provider. This is important. Contact a health care provider if: ??? Your symptoms are not helped by medicine. ??? You have a headache that is different from the usual headache. ??? You have nausea or you vomit. ??? You have a fever. Get help right away if: ??? Your headache becomes severe quickly. ??? Your headache gets worse after moderate to intense physical activity. ??? You have repeated vomiting. ??? You have a stiff neck. ??? You have a loss of vision. ??? You have problems with speech. ??? You have pain in the eye or ear. ??? You have muscular weakness or loss of muscle control. ??? You lose your balance or have trouble walking. ??? You feel faint or pass out. ??? You have confusion. ??? You have a seizure. Summary ??? A headache is pain or discomfort felt around the head or neck area. ??? There are many causes and types of headaches. In some cases, the cause may not be found. ??? Keep a headache journal to help find out what may trigger your headaches. Watch your condition for any changes. Let your health care provider know about them. ??? Contact a health care provider if you have a headache that is different from the usual headache, or if your symptoms are not helped by medicine. ??? Get help right away if your headache becomes severe, you vomit, you have a loss of vision, you lose your balance, or you have a seizure. This information is not intended to replace advice given to you by your health care provider. Make sure you discuss any questions you have with your health care provider. Document Released: 10/19/2006 Document Revised: 05/09/2019 Document Reviewed: 05/09/2019 [employer] Patient Education ?? 2020 [employer] Emergency Awareness and Preventative Care STROKE [...] Assistance with quitting is available by contacting 4-087-UZRW-NOW. This is a free resource providing counseling, [...] was given the opportunity to ask questions. Patient/Pulmonary Fellow Name: Patient/Pulmonary Fellow Signature: Relationship to Patient: Clinician/Hospital Pulmonary Fellow Signature: Please Provide a Telephone Number Where You Can Be Reached: Is it Permissible To Leave a Message? Date: documented in this encounter Plan of Treatment Upcoming Encounters Date Type Department Care Team (Late st Contact Info) Description 03/10/2025 1:15 PM EDT Office Visit [facility] Cardiology - [place] [address] [place] [address] Tabby Mcallister PA-Yuliana [address] [facility] [address] [place] [address] documented as of this encounter Visit Diagnoses Not on filedocumented in this encounter Care Teams Thermodynamics Engineer Relationship Specialty Start Date End Date Stacy Moise PA PCP - General 03/02/23 documented as of this encounter
--- OUTSIDE RECORDS SUMMARY | 2024-09-30 17:11 | XMS_ITS | Encounter Summary ---
Author Organization [employer] Address [address] [place] [address] Care Team Providers Care Plant Electrical Engineer Name Role Phone Stacy Moise Primary Care Provider [phone] Encounter Details Date Type Department Care Team (Late st Contact Info) Description 11/26/2020 Transcribed Document [facility] Family Medicine [facility] [place] [address] ProviderMireya MD [address] [place] [id number] Social History Tobacco Use Types Packs/Day Years Used Date Smoking Tobacco: Never Assessed Sex and Gender Information Value Date Recorded Sex Assigned at Not on file Legal Sex Male 5:25 PM CDT Gender Identity Not on file Sexual Orientation Not on file documented as of this encounter Miscellaneous Notes * Cerner Conversion Note - Mireya ProviderMD - 11/26/2020 12:18 PM SOOT BLOWER Broset Violence Assessment Entered On: 11/26/2020 17:45 EST Performed On: 11/26/2020 17:43 EST by Elieser Lopez RN-RESOURCE Broset Violence Assessment Broset Violence Checklist of Symptoms : None Broset Violence Symptoms Subtotal : 0 Broset Violence Symptoms Indicator : Low risk (0) Elieser Lopez RN-RESOURCE - 11/26/2020 17:43 EST documented in this encounter Plan of Treatment Upcoming Encounters Date Type Department Care Team (Late st Contact Info) Description 03/10/2025 1:15 PM EDT Office Visit [facility] Cardiology - [address] [place] [address] Tabby Mcallister PA-Yuliana [address] [facility] [address] [place] [address] documented as of this encounter Visit Diagnoses Not on filedocumented in this encounter Care Teams Plant Electrical Engineer Relationship Specialty Start Date End Date Stacy Moise PA PCP - General 03/02/23 documented as of this encounter
--- OUTSIDE RECORDS SUMMARY | 2024-09-30 17:11 | XMS_ITS | Encounter Summary ---
Author Organization [facility] In iatives Address [address] [place] [address] Care Team Providers Care Habitat Management Coordinator Name Role Phone Unavailable Primary Care Provider Unavailabl e Encounter Details Date Type Department Care Team (Late st Contact Info) Description 03/10/2020 Historic Encounter [facility] Radiology [address] [place] [address] ProviderJuan Historical Social History Tobacco Use Types [...] Description 03/10/2025 1:15 PM EDT Office Visit [facility] Cardiology - [address] [place] [address] Tabby Mcallister PA-C [address] [facility] [address] [place] [address] documented as of this encounter Procedures Procedure Name Priority Date/Time Associated Diagnosis Comments CBC W/ AUTO DIFF ([facility] BKR DATA CONV) Routine 03/12/2020 6:59 AM EDT AUTOMATED DIFFERENTIAL ([facility] BKR DATA CONV) Routine 03/12/2020 6:59 AM EDT BMP BASIC METABOLIC PANEL ([facility] BKR DATA CONV) Routine 03/12/2020 6:59 AM EDT MR BRAIN WITHOUT IV CONTRAST STAT 03/11/2020 4:22 PM EDT URINALYSIS UA RFLX MICROSCOPIC CULT IF IND ([facility] BKR DATA CONV) Routine 03/11/2020 7:30 AM EDT URINALYSIS MICROSCOPIC ([facility] BKR DATA CONV) Routine 03/11/2020 7:30 AM EDT CBC W/ AUTO DIFF ([facility] BKR DATA CONV) Routine 03/11/2020 12:27 AM EDT AUTOMATED DIFFERENTIAL ([facility] BKR DATA CONV) Routine 03/11/2020 12:27 AM EDT BMP BASIC METABOLIC PANEL ([facility] BKR DATA CONV) Routine 03/11/2020 12:27 AM EDT LIPID PANEL Routine 03/11/2020 12:27 AM EDT HEMOGLOBIN A1C Routine 03/11/2020 12:27 AM EDT TSH Routine 03/11/2020 12:27 AM EDT VITAMIN B12 Routine 03/11/2020 12:27 AM EDT CALCIUM IONIZED ([facility] BKR DATA CONV) Routine 03/11/2020 12:16 AM EDT CRP C-REACTIVE PROTEIN ([facility] BKR DATA CONV) Routine 03/11/2020 12:16 AM EDT XR CHEST 1 VIEW PORTABLE / BEDSIDE STAT 03/10/2020 8:00 PM EDT CTA NECK / BRAIN STROKE PROTOCOL STAT 03/10/2020 7:[address] BRAIN STROKE PROTOCOL STAT 03/10/2020 7:30 PM EDT GLUCOSE-POC Routine 03/10/2020 7:12 PM EDT ALCOHOL LEVEL ([facility] BKR DATA CONV) Routine 03/10/2020 6:36 PM EDT CBC W/ AUTO DIFF ([facility] BKR DATA CONV) Routine 03/10/2020 6:36 PM EDT AUTOMATED DIFFERENTIAL ([facility] BKR DATA CONV) Routine 03/10/2020 6:36 PM EDT BMP BASIC METABOLIC PANEL ([facility] BKR DATA CONV) Routine 03/10/2020 6:36 PM EDT PTT ([facility] BKR DATA CONV) Routine 03/10/2020 6:36 PM EDT PT/INR PROTHROMBIN TIME ([facility] BKR DATA CONV) Routine 03/10/2020 6:36 PM EDT TROPONIN I ULTRA ([facility] BKR DATA CONV) Routine 03/10/2020 6:36 PM EDT HEPATIC FUNCTION PANEL 6 Routine 03/10/2020 6:36 PM EDT FIBRINOGEN Routine 03/10/2020 6:36 PM EDT documented in this encounter Results * (ABNORMAL) BMP BASIC METABOLIC PANEL ([facility] BKR DATA CONV) (03/12/2020 6:59 AM EDT) Glucose Level 113(H) 74 - 106 mg/dL 03/12/2020 11:30 AM EDT Comment: [employer] has become aware of sulfasalazine and sulfapyridine [...] administration of the drug. Blood Urea Nitrogen 21 7 - 22 mg/dL 03/12/2020 11:30 AM EDT Creatinine Level 0.90 0.70 - 1.30 mg/dL 03/12/2020 11:30 AM EDT Sodium Level 137 136 - 146 mmol/L 03/12/2020 11:30 AM EDT Potassium Level 3.3(L) 3.5 - 5.1 mmol/L 03/12/2020 11:30 AM EDT Chloride Level 108 102 - 112 mmol/L 03/12/2020 11:30 AM EDT Carbon Dioxide Level 25 21 - 32 mmol/L 03/12/2020 11:30 AM EDT Anion Gap 7(L) 9 - 20 03/12/2020 11:30 AM EDT Calcium Level 9.0 8.4 - 10.1 mg/dL 03/12/2020 11:30 AM EDT Bun/Creatinine 23.3(H) 8.0 - 20.0 03/12/2020 11:30 AM EDT eGFR NonAfrican >60 >=60 mL/min/1. 73m2 03/12/2020 11:32 AM EDT Comment: GFR <60 suggests chronic kidney disease, if found over 3 month period. GFR <15 indicates renal failure. eGFR >60 >=60 mL/min/1. 73m2 03/12/2020 11:32 AM EDT Comment: GFR <60 suggests chronic kidney disease, if found over 3 month period. GFR <15 indicates renal failure. Blood 03/12/2020 6:59 AM EDT 03/12/2020 11:10 AM EDT [facility] Historical Provider LAB BLOOD ORDERABLES Fi nal Result [facility] [address] [phone] * (ABNORMAL) AUTOMATED DIFFERENTIAL ([facility] BKR DATA CONV) (03/12/2020 6:59 AM EDT) Neut% 51.5 34.0 - 71.0 % 03/12/2020 11:14 AM EDT Lymph% 32.0 19.3 - 53.1 % 03/12/2020 11:14 AM EDT Pecos% 13.1(H) 3.0 - 9.0 % 03/12/2020 11:14 AM EDT Eos% 2.6 0.0 - 7.0 % 03/12/2020 11:14 AM EDT Baso% 0.2 0.0 - 1.5 % 03/12/2020 11:14 AM EDT IG% 0.60 0.00 - 0.60 % 03/12/2020 11:14 AM EDT Neut# 4.38 1.56 - 6.13 K/uL 03/12/2020 11:14 AM EDT Lymph# 2.73 1.00 - 3.90 x10(3)/uL 03/12/2020 11:14 AM EDT Pecos# 1.12(H) 0.16 - 1.00 K/uL 03/12/2020 11:14 AM EDT Eos# 0.22 0.00 - 0.80 x10(3)/uL 03/12/2020 11:14 AM EDT Baso# 0.02 0.00 - 0.20 x10(3)/uL 03/12/2020 11:14 AM EDT IG# 0.05 0.00 - 0.05 x10(3)/uL 03/12/2020 11:14 AM EDT Blood 03/12/2020 6:59 AM EDT 03/12/2020 11:10 AM EDT Narrative [facility] - 03/12/2020 11:17 AM EDT Added by Discern Expert [facility] Historical Provider LAB BLOOD ORDERABLES Fi nal Result Performing Organization Address [facility]/State/[facility] Co de Phone Number [facility] [address] [phone] * (ABNORMAL) CBC W/ AUTO DIFF ([facility] BKR DATA CONV) (03/12/2020 6:59 AM EDT) WBC 8.5 3.6 - 9.5 K/uL 03/12/2020 11:14 AM EDT Comment:Released without rep eat. RBC 4.49 4.20 - 5.70 Million/uL 03/12/2020 11:14 AM EDT Hgb 13.9 13.5 - 17.3 g/dL 03/12/2020 11:14 AM EDT Hct 39.9(L) 40.1 - 51.0 % 03/12/2020 11:14 AM EDT MCV 88.9 79.0 - 94.8 fL 03/12/2020 11:14 AM EDT MCH 31.0 25.6 - 32.2 pg 03/12/2020 11:14 AM EDT MCHC 34.8 32.2 - 36.5 Gram/dL 03/12/2020 11:14 AM EDT RDW 12.6 11.7 - 14.9 % 03/12/2020 11:14 AM EDT Platelet Count 299 163 - 369 K/uL 03/12/2020 11:14 AM EDT MPV 9.8 9.4 - 12.4 fL 03/12/2020 11:14 AM EDT Slide Review No 03/12/2020 11:17 AM EDT Blood 03/12/2020 6:59 AM EDT 03/12/2020 11:10 AM EDT [facility] Historical Provider LAB BLOOD ORDERABLES Fi nal Result Performing Organization Address City/State/[facility] Co de Phone Number [facility] [address] [phone] * MR BRAIN WITHOUT IV CONTRAST (03/11/2020 4:22 PM EDT) Anatomical Region Laterality Modality Head, Brain Magnetic Resonan ce 03/11/2020 4:22 PM EDT Narrative 03/11/2020 9:01 PM EDT MRI of the brain without contrast INDICATION: Loss of balance TECHNIQUE: Multiplanar multisequence noncontrast MRI imaging of the brain was performed. FINDINGS: There is no evidence of intracranial hemorrhage, focal mass lesion, or acute ischemia. The ventricles are midline and symmetric. No suspicious parenchymal abnormalities are identified. The expected intracranial flow voids are present. IMPRESSION: Normal MRI of the brain. Images reviewed, interpreted, and dictated by Zaid Angel MD. Procedure Note Provider, MD Mireya - 02/17/2023 MRI of the brain without contrast INDICATION: Loss of balance TECHNIQUE: Multiplanar multisequence noncontrast MRI imaging of the brain was performed. FINDINGS: There is no evidence of intracranial hemorrhage, focal mass lesion, or acute ischemia. The ventricles are midline and symmetric. No suspicious parenchymal abnormalities are identified. The expected intracranial flow voids are present. IMPRESSION: Normal MRI of the brain. Images reviewed, interpreted, and dictated by Zaid Angel MD. [facility] Historical Provider IMG MRI ORDERABLES Chichi l Result * (ABNORMAL) URINALYSIS UA RFLX MICROSCOPIC CULT IF IND ([facility] BKR DATA CONV) (03/11/2020 7:30 AM EDT) Urine Type. U CleanCatch 03/11/2020 11:35 AM EDT Urine Color Yellow 03/11/2020 11:39 AM EDT Comment: Substances that cause HIGHLY abnormal urine color may affect the accuracy of URINE CHEMISTRY reagent strip results due to colorimetric interference. ??These include visible levels of blood or bilirubin, drugs containing dyes, and some antibiotics such as nitrofurantoin and riboflavin which can cause markedly abnormal urine coloration. Urine Appearance Clear 03/11/20 20 11:39 AM EDT Urine Specific Chamberlain 1.017 1.005 - 1.030 03/11/2020 11:39 AM EDT Urine pH Dipstick 7.0 6.0 - 8.0 03/11/2020 11:39 AM EDT Urine Leukocyte Esterase Negative Negative 03/11/2020 11:39 AM EDT Urine Nitrite Negative Negative 03/11/2020 11:39 AM EDT Urine Protein Dipstick Negative Negative 03/11/2020 11:39 AM EDT Comment:Use of urine preserv atives may elevate protein results and reduce bilirubin, blood and nitrite results. Urine Glucose Dipstick Negative Negative 03/11/2020 11:39 AM EDT Urine Ketones Dipstick Negative Negative 03/11/2020 11:39 AM EDT Urine Urobilinogen Dipstick 1.0(A) EU/dL 03/11/2020 11:39 AM EDT Urine Bilirubin Dipstick Negative Negative 03/11/2020 11:39 AM EDT Urine Blood Dipstick Negative Negative 03/11/2020 11:39 AM EDT 03/11/2020 7:30 AM EDT 03/11/2020 11:35 AM EDT [facility] Historical Provider URINE ORDERABLES Final Result [facility] [address] [phone] * (ABNORMAL) URINALYSIS MICROSCOPIC ([facility] BKR DATA CONV) (03/11/2020 7:30 AM EDT) [facility] Correlate UA Correlated Correlated 03/11/2020 11:46 AM EDT Ur Bacteria Trace(A) 03/11/2020 11:46 AM EDT 03/11/2020 7:30 AM EDT 03/11/2020 11:35 AM EDT Narrative [facility] - 03/11/2020 11:46 AM EDT Added by Discern Expert [facility] Historical Provider URINE ORDERABLES Final Result Performing Organization Address [facility] Co de Phone Number [facility] [address] [phone] * (ABNORMAL) TSH (03/11/2020 12:27 AM EDT) [facility] TSH 5.700(H) 0.358 - 3.740 mcInt Units/mL 03/11/2020 4:52 AM EDT Comment:Biotin supplements c an cause clinically significant incorrect lab results. The FDA has seen an increase in the number of reported adverse events related to biotin interferencewith lab tests. Blood 03/11/2020 12:2 7 AM EDT 03/11/2020 4:28 AM EDT [facility] Historical Provider LAB BLOOD ORDERABLES Fi nal Result Performing Organization Address [facility]/ZIP Co de Phone Number [facility] [address] [phone] * (ABNORMAL) LIPID PANEL (03/11/2020 12:27 AM EDT) [facility] Triglyceride 315(H) 0 - 249 mg/dL 03/11/2020 4:44 AM EDT Cholesterol HDL 25.0 mg/dL 0 4:44 AM EDT Comment: Desirable > 60 mg/dl Increased Risk < 40 mg/dl Cholesterol Total 137 0 - 199 mg/dL 03/11/2020 4:44 AM EDT Comment: 200 to 239 mg/dL Moderate (borderline) >239 mg/dL ?High Cholesterol VLDL Calculation 63.0(H) 5.0 - 40.0 mg/dL 03/11/2020 4:45 AM EDT Comment:Calculated by Discer n Rule GL_CHEM_TRIG_CMNT Cholesterol LDL Calculation 49.0 0.0 - 99.0 mg/dL 03/11/2020 4:45 AM EDT Comment: Calculated by Discern Rule GL_CHEM_TRIG_CMNTDESIRABLE ?<130 BORDERLINE ? 130 to 159 HIGH ? >=160 Cholesterol/HDL Ratio 5.5(H) 0.0 - 3.2 03/11/2020 4:44 AM EDT LDL/HDL Ratio 2.0 0.0 - 3.6 03/11/2020 4:45 AM EDT Comment:Calculated by Discer n Rule GL_CHEM_TRIG_CMNT Blood 03/11/2020 12:2 7 AM EDT 03/11/2020 4:28 AM EDT [facility] Historical Provider PATHOLOGY/CYTOLOGY MICHAEL PETERS Final Result [facility] [address] [phone] * (ABNORMAL) BMP BASIC METABOLIC PANEL ([facility] BKR DATA CONV) (03/11/2020 12:27 AM EDT) Glucose Level 114(H) 74 - 106 mg/dL 03/11/2020 4:41 AM EDT Comment: [employer] has become aware of sulfasalazine and sulfapyridine [...] Urea Nitrogen 14 7 - 22 mg/dL 03/11/2020 4:41 AM EDT Creatinine Level 0.80 0.70 - 1.30 mg/dL 03/11/2020 4:41 AM EDT Sodium Level 139 136 - 146 mmol/L 03/11/2020 4:41 AM EDT Potassium Level 3.5 3.5 - 5.1 mmol/L 03/11/2020 4:41 AM EDT Chloride Level 108 102 - 112 mmol/L 03/11/2020 4:41 AM EDT Carbon Dioxide Level 24 21 - 32 mmol/L 03/11/2020 4:41 AM EDT Anion Gap 10 9 - 20 03/11/2020 4:41 AM EDT Calcium Level 9.3 8.4 - 10.1 mg/dL 03/11/2020 4:41 AM EDT Bun/Creatinine 17.5 8.0 - 20.0 03/11/2020 4:41 AM EDT eGFR NonAfrican >60 >=60 mL/min/1. 73m2 03/11/2020 4:42 AM EDT Comment: GFR <60 suggests chronic kidney disease, if found over 3 month period. GFR <15 indicates renal failure. eGFR >60 >=60 mL/min/1. 73m2 03/11/2020 4:42 AM EDT Comment: GFR <60 suggests chronic kidney disease, if found over 3 month period. GFR <15 indicates renal failure. Blood 03/11/2020 12:2 7 AM EDT 03/11/2020 4:28 AM EDT [facility] Historical Provider LAB BLOOD ORDERABLES Fi nal Result [facility] [address] [phone] * (ABNORMAL) AUTOMATED DIFFERENTIAL ([facility] BKR DATA CONV) (03/11/2020 12:27 AM EDT) Neut% 60.4 34.0 - 71.0 % 03/11/2020 4:30 AM EDT Lymph% 26.0 19.3 - 53.1 % 03/11/2020 4:30 AM EDT Pecos% 9.9(H) 3.0 - 9.0 % 03/11/2020 4:30 AM EDT Eos% 2.6 0.0 - 7.0 % 03/11/2020 4:30 AM EDT Baso% 0.4 0.0 - 1.5 % 03/11/2020 4:30 AM EDT IG% 0.70(H) 0.00 - 0.60 % 03/11/2020 4:30 AM EDT Neut# 8.52(H) 1.56 - 6.13 K/uL 03/11/2020 4:30 AM EDT Lymph# 3.66 1.00 - 3.90 x10(3)/uL 03/11/2020 4:30 AM EDT P[place]os# 1.40(H) 0.16 - 1.00 K/uL 03/11/2020 4:30 AM EDT Eos# 0.36 0.00 - 0.80 x10(3)/uL 03/11/2020 4:30 AM EDT Baso# 0.06 0.00 - 0.20 x10(3)/uL 03/11/2020 4:30 AM EDT IG# 0.10(H) 0.00 - 0.05 x10(3)/uL 03/11/2020 4:30 AM EDT Blood 03/11/2020 12:2 7 AM EDT 03/11/2020 4:28 AM EDT Narrative [facility] - 03/11/2020 4:34 AM EDT Added by Discern Expert us [facility] Historical Provider LAB BLOOD ORDERABLES Fi nal Result [facility] [address] [place] [id number] [phone] * (ABNORMAL) CBC W/ AUTO DIFF ([facility] BKR DATA CONV) (03/11/2020 12:27 AM EDT) WBC 14.1(H) 3.6 - 9.5 K/uL 03/11/2020 4:30 AM EDT Comment:Released without rep eat. RBC 5.05 4.20 - 5.70 Million/uL 03/11/2020 4:30 AM EDT Hgb 15.7 13.5 - 17.3 g/dL 03/11/2020 4:30 AM EDT Hct 45.0 40.1 - 51.0 % 03/11/2020 4:30 AM EDT MCV 89.1 79.0 - 94.8 fL 03/11/2020 4:30 AM EDT MCH 31.1 25.6 - 32.2 pg 03/11/2020 4:30 AM EDT MCHC 34.9 32.2 - 36.5 Gram/dL 03/11/2020 4:30 AM EDT RDW 12.5 11.7 - 14.9 % 03/11/2020 4:30 AM EDT Platelet Count 369 163 - 369 K/uL 03/11/2020 4:30 AM EDT MPV 10.0 9.4 - 12.4 fL 03/11/2020 4:30 AM EDT Slide Review No 03/11/2020 4:34 AM EDT Blood 03/11/2020 12:2 7 AM EDT 03/11/2020 4:28 AM EDT [facility] Historical Provider LAB BLOOD ORDERABLES Fi nal Result [facility] [address] [phone] * HEMOGLOBIN A1C (03/11/2020 12:27 AM EDT) HgbA1C 6.8 % 03/11/2020 2:03 PM EDT Comment: Ranges for Diabetic Adults(Diagnosed/Non-) Hemoglobin A1c(%) ??Glycemic Index <8 ?Less Stringent Goal <7 ? General Goal <6.5 ?More Stringent Goal Ranges to Aid in Diagnosis of Diabetes Hemoglobin A1c(%) ??Suggested Diagnosis ? > or = 6.5 ? Diabetic ?5.7 - 6.4 ?Pre-Diabetic <5.7 ? Non-Diabetic eAVG Glucose 148 mg/dL 03/11/2020 2:03 PM EDT Blood 03/11/2020 12:2 7 AM EDT 03/11/2020 4:28 AM EDT [facility] Historical Provider LAB BLOOD ORDERABLES Fi nal Result Performing Organization Address [facility] Co de Phone Number [facility] [address] [phone] * VITAMIN B12 (03/11/2020 12:27 AM EDT) Vitamin B12 Level 609 193 - 986 pg/mL 03/11/2020 5:07 AM EDT Blood 03/11/2020 12:2 7 AM EDT 03/11/2020 4:28 AM EDT Result [facility] Provider LAB BLOOD ORDERABLES Fi nal Result Performing Organization Address [facility] Phone Number [facility] [address] [phone] * CRP C-REACTIVE PROTEIN ([facility] BKR DATA CONV) (03/11/2020 12:16 AM EDT) CRP <0.3 0.0 - 0.9 mg/dL 03/11/2020 2:31 PM EDT Blood 03/11/2020 12:1 6 AM EDT 03/11/2020 1:34 PM EDT Result [facility] Provider LAB BLOOD ORDERABLES Fi nal Result Performing Organization Address [facility] Co de Phone Number [facility] [address] [phone] * CALCIUM IONIZED ([facility] BKR DATA CONV) (03/11/2020 12:16 AM EDT) Calcium Ionized 1.18 1.12 - 1.32 mmol/L 03/11/2020 4:31 AM EDT [facility] Blood 03/11/2020 12:1 6 AM EDT 03/11/2020 4:22 AM EDT [facility] Historical Provider LAB BLOOD ORDERABLES Fi nal Result [facility] [address] [phone] * XR chest 1 view portable / bedside (03/10/2020 8:00 PM EDT) Anatomical Region Laterality Modality X-Ray 03/10/2020 8:00 PM EDT Narrative 03/11/2020 3:25 PM EDT Single view chest INDICATION: Stroke like symptoms FINDINGS: The lungs are clear. The mediastinum and cardiac silhouette are unremarkable. IMPRESSION: No acute abnormality Images reviewed, interpreted, and dictated by Zaid Angel MD. Procedure Note Provider, MD Mireya - 02/17/2023 Single view chest INDICATION: Stroke like symptoms FINDINGS: The lungs are clear. The mediastinum and cardiac silhouette are unremarkable. IMPRESSION: No acute abnormality Images reviewed, interpreted, and dictated by Zaid Angel MD. Result [facility] Historical Provider IMG DIAGNOSTIC IMAGING ORDERABLES Final Result * CTA NECK / BRAIN STROKE PROTOCOL (03/10/2020 7:45 PM EDT) Anatomical Region Laterality Modality Neck, Head, Carotid Computed Garcia ography 03/10/2020 7:45 PM EDT Narrative 03/11/2020 12:[address] WITH AND WITHOUT SCAN HISTORY: Facial numbness and dizziness. COMPARISON: None. TECHNIQUE: Multiple axial CT sections were performed from the foramen magnum to the vertex pre and post contrast injection. The post contrast images were performed utilizing 2 separate boluses and extensive postprocessing was performed to provide maps of regional blood flow and volume according to the perfusion protocol. FINDINGS: The noncontrast examination again shows no significant abnormality. Perfusion images are within normal limits. IMPRESSION: Unremarkable. CT NECK ANGIO, WITHOUT AND WITH CONTRAST HISTORY: As above TECHNIQUE: Thin-section axial CT with IV contrast supplemented with multiplanar reconstruction. This study was performed with techniques to keep radiation doses as low as reasonably achievable, (ALARA). Individualized dose reduction techniques using automated exposure control or adjustment of mA and/or kV according to the patient size were employed. COMPARISON: None. FINDINGS: Aortic arch: ??There is mild to moderate dilation of the distal portion of the arch and the proximal descending aorta. There is no stenosis of the great vessel origins.. Right carotid: ??The common carotid artery is normal. There is a mild, less than 50%, stenosis of the proximal ICA. The remainder of the carotid arteries are unremarkable. Left carotid: Unremarkable. Vertebrals: Unremarkable. IMPRESSION: ??No significant stenosis. CTA HEAD HISTORY: As above TECHNIQUE: Thin-section axial CT with contrast with multiplanar reconstruction. This study was performed with techniques to keep radiation doses as low as reasonably achievable, (ALARA). Individualized dose reduction techniques using automated exposure control or adjustment of mA and/or kV according to the patient size were employed. FINDINGS: ??Other than mild calcification, the intracranial portions of the internal carotid arteries are normal bilaterally. The anterior and middle cerebral arteries show no significant abnormality. The intracranial vertebral arteries, the basilar artery and their major branches are also within normal limits. IMPRESSION: ??No significant abnormality. Dr. Roberts was called and notified of these findings at the time of dictation. Procedure Note Clemente Beck MD - 02/17/[address] WITH AND WITHOUT SCAN HISTORY: Facial numbness and dizziness. COMPARISON: None. TECHNIQUE: Multiple axial CT sections were performed from the foramen magnum to the vertex pre and post contrast injection. The post contrast images were performed utilizing 2 separate boluses and extensive postprocessing was performed to provide maps of regional blood flow and volume according to the perfusion protocol. FINDINGS: The noncontrast examination again shows no significant abnormality. Perfusion images are within normal limits. IMPRESSION: Unremarkable. CT NECK ANGIO, WITHOUT AND WITH CONTRAST HISTORY: As above TECHNIQUE: Thin-section axial CT with IV contrast supplemented with multiplanar reconstruction. This study was performed with techniques to keep radiation doses as low as reasonably achievable, (ALARA). Individualized dose reduction techniques using automated exposure control or adjustment of mA and/or kV according to the patient size were employed. COMPARISON: None. FINDINGS: Aortic arch: There is mild to moderate dilation of the distal portion of the arch and the proximal descending aorta. There is no stenosis of the great vessel origins.. Right carotid: The common carotid artery is normal. There is a mild, less than 50%, stenosis of the proximal ICA. The remainder of the carotid arteries are unremarkable. Left carotid: Unremarkable. Vertebrals: Unremarkable. IMPRESSION: No significant stenosis. CTA HEAD HISTORY: As above TECHNIQUE: Thin-section axial CT with contrast with multiplanar reconstruction. This study was performed with techniques to keep radiation doses as low as reasonably achievable, (ALARA). Individualized dose reduction techniques using automated exposure control or adjustment of mA and/or kV according to the patient size were employed. FINDINGS: Other than mild calcification, the intracranial portions of the internal carotid arteries are normal bilaterally. The anterior and middle cerebral arteries show no significant abnormality. The intracranial vertebral arteries, the basilar artery and their major branches are also within normal limits. IMPRESSION: No significant abnormality. Dr. Roberts was called and notified of these findings at the time of dictation. us Clemente Beck MD [facility] CT ORDERABLES Final Result * CT BRAIN STROKE PROTOCOL (03/10/2020 7:30 PM EDT) Anatomical Region Laterality Modality Brain, Carotid, Head Computed To mography 03/10/2020 7:30 PM EDT Narrative 03/10/2020 11:[address] HISTORY: Dizziness and left side facial numbness. Recent symptom onset. Code stroke. TECHNIQUE: Multiple axial CT images were performed from the foramen magnum to the vertex without contrast. This study was performed with techniques to keep radiation doses as low as reasonably achievable, (ALARA). Individualized dose reduction techniques using automated exposure control or adjustment of mA and/or kV according to the patient size were employed. COMPARISON: None. FINDINGS: The ventricles are normal. There is no mass or shift of midline structures. There is no intracranial hemorrhage. No significant sinus or osseous abnormality seen. IMPRESSION: Unremarkable. Dr. Smalls was called and notified of these findings prior to dictation. Procedure Note Clemente Beck MD - 02/17/[address] HISTORY: Dizziness and left side facial numbness. Recent symptom onset. Code stroke. TECHNIQUE: Multiple axial CT images were performed from the foramen magnum to the vertex without contrast. This study was performed with techniques to keep radiation doses as low as reasonably achievable, (ALARA). Individualized dose reduction techniques using automated exposure control or adjustment of mA and/or kV according to the patient size were employed. COMPARISON: None. FINDINGS: The ventricles are normal. There is no mass or shift of midline structures. There is no intracranial hemorrhage. No significant sinus or osseous abnormality seen. IMPRESSION: Unremarkable. Dr. Smalls was called and notified of these findings prior to dictation. Clemente Beck MD IMG CT ORDERABLES Final Result * (ABNORMAL) Glucose, Point of Care (03/10/2020 7:12 PM EDT) Glucose POC2 133(H) 70 - 110 mg/dL 03/10/2020 11:12 PM EDT [facility] Biophysics Teacher [id number] 03/10/2020 11:12 PM EDT [facility] Device SN [id number] 03/10/2020 11:12 PM EDT [facility] Device Comment1 Protocols Followed 03/10/2020 11:12 PM EDT [facility] Blood 03/10/2020 7:12 PM EDT 03/10/2020 11:15 PM EDT [facility] Historical Provider POINT OF CARE TEST MICHAEL PETERS Final Result [facility] [address] [phone] * PT/INR PROTHROMBIN TIME ([facility] DATA CONV) (03/10/2020 6:36 PM EDT) PT 10.7 9.6 - 12.0 Second(s) 03/10/2020 10:51 PM EDT INR 1.0 0.9 - 1.1 03/10/2020 10:51 PM EDT Comment: DIAGNOSIS ?THERAPEUTIC RANGE a) Primary and secondary prevention of ?2.0-3.0 venous thrombosis b) Active venous thrombosis, pulmonary ?2.0-4.0 embolism and prevention of recurrent venous thrombosis c) Prevention of arterial thromboembolism ? 3.0-4.5 including patients with mechanical heart valves Blood 03/10/2020 6:36 PM EDT 03/10/2020 10:38 PM EDT [facility] Provider LAB BLOOD ORDERABLES Fi nal Result Performing Organization Address [facility] Phone Number [facility] [address] [place] [address] * ALCOHOL LEVEL ([facility] BKR DATA CONV) (03/10/2020 6:36 PM EDT) Alcohol <3 mg/dL 03/10/2020 11:00 PM EDT Comment: Toxic: 50 - 100 mg/dl Depression of BROKERAGE CLERK: >100 mg/dl Fatalities Reported: >400 mg/dl Alcohol measurements obtained by this method are to be used in the diagnosis and treatment of alcohol intoxication and poisoning. This method is not totally free from interferences from volatiles other than ethanol. %Alcohol <.00 03/10/2020 11:01 PM EDT Blood 03/10/2020 6:36 PM EDT 03/10/2020 10:38 PM EDT [facility] Provider LAB BLOOD ORDERABLES Fi nal Result Performing Organization Address [facility] de Phone Number [facility] [address] [phone] * PTT ([facility] BKR DATA CONV) (03/10/2020 6:36 PM EDT) PTT 29.7 24.0 - 34.0 Second(s) 03/10/2020 10:51 PM EDT Blood 03/10/2020 6:36 PM EDT 03/10/2020 10:38 PM EDT [facility] Historical Provider LAB BLOOD ORDERABLES Fi nal Result [facility] [address] [place] [address], [facility] [phone] * (ABNORMAL) BMP BASIC METABOLIC PANEL ([facility] BKR DATA CONV) (03/10/2020 6:36 PM EDT) Glucose Level 150(H) 74 - 106 mg/dL 03/10/2020 11:00 PM EDT Comment: [employer] has become aware of sulfasalazine and sulfapyridine [...] administration of the drug. Blood Urea Nitrogen 16 7 - 22 mg/dL 03/10/2020 11:00 PM EDT Creatinine Level 1.00 0.70 - 1.30 mg/dL 03/10/2020 11:00 PM EDT Sodium Level 139 136 - 146 mmol/L 03/10/2020 11:00 PM EDT Potassium Level 3.5 3.5 - 5.1 mmol/L 03/10/2020 11:00 PM EDT Chloride Level 109 102 - 112 mmol/L 03/10/2020 11:00 PM EDT Carbon Dioxide Level 24 21 - 32 mmol/L 03/10/2020 11:00 PM EDT Anion Gap 10 9 - 20 03/10/2020 11:00 PM EDT Calcium Level 8.7 8.4 - 10.1 mg/dL 03/10/2020 11:00 PM EDT Bun/Creatinine 16.0 8.0 - 20.0 03/10/2020 11:00 PM EDT eGFR NonAfrican >60 >=60 mL/min/1. 73m2 03/10/2020 11:01 PM EDT Comment: GFR <60 suggests chronic kidney disease, if found over 3 month period. GFR <15 indicates renal failure. eGFR >60 >=60 mL/min/1. 73m2 03/10/2020 11:01 PM EDT Comment: GFR <60 suggests chronic kidney disease, if found over 3 month period. GFR <15 indicates renal failure. Blood 03/10/2020 6:36 PM EDT 03/10/2020 10:38 PM EDT [facility] Historical Provider LAB BLOOD ORDERABLES nal Result [facility] [address] [phone] * (ABNORMAL) AUTOMATED DIFFERENTIAL ([facility] BKR DATA CONV) (03/10/2020 6:36 PM EDT) Neut% 51.8 34.0 - 71.0 % 03/10/2020 10:40 PM EDT Lymph% 30.6 19.3 - 53.1 % 03/10/2020 10:40 PM EDT [place]% 13.5(H) 3.0 - 9.0 % 03/10/2020 10:40 PM EDT Eos% 3.0 0.0 - 7.0 % 03/10/2020 10:40 PM EDT Baso% 0.5 0.0 - 1.5 % 03/10/2020 10:40 PM EDT IG% 0.60 0.00 - 0.60 % 03/10/2020 10:40 PM EDT Neut# 5.16 1.56 - 6.13 K/uL 03/10/2020 10:40 PM EDT Lymph# 3.04 1.00 - 3.90 x10(3)/uL 03/10/2020 10:40 PM EDT [place]# 1.34(H) 0.16 - 1.00 K/uL 03/10/2020 10:40 PM EDT Eos# 0.30 0.00 - 0.80 x10(3)/uL 03/10/2020 10:40 PM EDT Baso# 0.05 0.00 - 0.20 x10(3)/uL 03/10/2020 10:40 PM EDT IG# 0.06(H) 0.00 - 0.05 x10(3)/uL 03/10/2020 10:40 PM EDT Blood 03/10/2020 6:36 PM EDT 03/10/2020 10:38 PM EDT Narrative [facility] - 03/10/2020 10:42 PM EDT Added by Discern Expert [facility] Provider LAB BLOOD ORDERABLES Fi nal Result Performing Organization Address City/[facility]/ZIP Co de Phone Number [facility] [address] [phone] * Fibrinogen (03/10/2020 6:36 PM EDT) Fibrinogen Level 333 220 - 420 mg/dL 03/10/2020 10:51 PM EDT Blood 03/10/2020 6:36 PM EDT 03/10/2020 10:38 PM EDT [facility] Provider LAB BLOOD ORDERABLES Fi nal Result Performing Organization Address [facility] Co de Phone Number [facility] [address] [phone] * (ABNORMAL) CBC W/ AUTO DIFF ([facility] BKR DATA CONV) (03/10/2020 6:36 PM EDT) WBC 10.0(H) 3.6 - 9.5 K/uL 03/10/2020 10:40 PM EDT RBC 4.63 4.20 - 5.70 Million/uL 03/10/2020 10:40 PM EDT Hgb 14.6 13.5 - 17.3 g/dL 03/10/2020 10:40 PM EDT Hct 42.1 40.1 - 51.0 % 03/10/2020 10:40 PM EDT MCV 90.9 79.0 - 94.8 fL 03/10/2020 10:40 PM EDT MCH 31.5 25.6 - 32.2 pg 03/10/2020 10:40 PM EDT MCHC 34.7 32.2 - 36.5 Gram/dL 03/10/2020 10:40 PM EDT RDW 12.5 11.7 - 14.9 % 03/10/2020 10:40 PM EDT Platelet Count 332 163 - 369 K/uL 03/10/2020 10:40 PM EDT MPV 9.7 9.4 - 12.4 fL 03/10/2020 10:40 PM EDT Slide Review No 03/10/2020 10:42 PM EDT Blood 03/10/2020 6:36 PM EDT 03/10/2020 10:38 PM EDT [facility] Historical Provider LAB BLOOD ORDERABLES nal Result [facility] [address] [phone] * (ABNORMAL) HEPATIC FUNCTION PANEL 6 (03/10/2020 6:36 PM EDT) Albumin Level 3.9 3.4 - 5.0 Gram/dL 03/10/2020 11:00 PM EDT Globulin 3.9 1.5 - 4.5 Gram/dL 03/10/2020 11:00 PM EDT Protein, Total 7.8 6.4 - 8.2 Gram/dL 03/10/2020 11:00 PM EDT A/G Ratio 1.0(L) 1.1 - 2.5 03/10/2020 11:00 PM EDT ALT 29 16 - 61 Units/Lit er 03/10/2020 11:00 PM EDT Comment: [employer] has become aware of sulfasalazine and sulfapyridine [...] prior to administration of the drug. AST 16 5 - 37 Units/Lit er 03/10/2020 11:00 PM EDT Comment: [employer] has become aware of sulfasalazine and sulfapyridine [...] occur prior to administration of the drug. Alk Phos 127 27 - 136 Units/Lit er 03/10/2020 11:00 PM EDT Bilirubin, Total 0.3 0.2 - 1.2 mg/dL 03/10/2020 11:00 PM EDT Comment: Total bilirubin results may be falsely elevated in patients undergoing treatment with eltrombopag (Promacta). Results should be correlated to clinical symptomology and additional laboratory testing including other markers for liver function, e.g., alanine aminotransferase, aspartate aminotransferase, alkaline phosphatase, and/or lactate dehydrogenase. Bilirubin Direct <0.1 0.0 - 0.2 mg/dL 03/10/2020 11:00 PM EDT Blood 03/10/2020 6:36 PM EDT 03/10/2020 10:38 PM EDT Result [facility] Provider PATHOLOGY/CYTOLOGY MICHAEL PETERS Final Result Performing Organization Address City/State/[facility] Co de Phone Number [facility] [address] [place] [address] * TROPONIN I ULTRA ([facility] BK DATA CONV) (03/10/2020 6:36 PM EDT) TroponinI Ultra <0.015 0.015 - 0.045 ng/mL 03/10/2020 11:00 PM EDT Comment: Troponin Result (ng/ml) ?* Interpretation 0.015 ? 0.045 ?* ??Normal; less than 99th percentile of normal range >0.045 ? * Abnormal; greater than 99th percentile of normal range. ?? Test precision at 0.045 ng/ml is less than 10% Coefficient of Variation. Blood 03/10/2020 6:36 PM EDT 03/10/2020 10:38 PM EDT [facility] Provider LAB BLOOD ORDERABLES Fi nal Result [facility] [address] [phone] documented in this encounter Visit Diagnoses Not on filedocumented in this encounter
--- OUTSIDE RECORDS SUMMARY | 2024-09-30 17:11 | XMS_ITS | Encounter Summary ---
Author Organization [employer] Address [address] [place] [address] Care Team Providers Care Welding Robot Operator Name Role Phone Stacy Moise Primary Care Provider [phone] Encounter Details Date Type Department Care Team (Late st Contact Info) Description 03/12/2020 Transcribed Document [facility] Family [place] [facility] [place] [address] ProviderMireya MD [address] [place] [address] [id number] Social History Tobacco Use Types Packs/Day Years Used Date Smoking Tobacco: Never Assessed Sex and Gender Information Value Date Recorded Sex Assigned at Not on file Legal Sex Male 5:25 PM CDT Gender Identity Not on file Sexual Orientation Not on file documented as of this encounter Miscellaneous Notes * [employer]ner Conversion Note - Mireya ProviderMD - 03/12/2020 2:09 PM CDT Nursing Discharge Summary Entered On: 03/12/2020 14:09 EDT Performed On: 03/12/2020 14:09 EDT by Alicia Portillo RN Discharge Documentation Patient Disposition, General : Discharge Discharge To : Home with ambulatory/outpatient follow-up Mode Of Departure, General Discharge : Private vehicle Accompanied By, Discharge : Unaccompanied IV Discontinued : Yes Personal Belongings With Patient : Yes Prescriptions Given to Patient : Electronically sent Discharge Instructions Reviewed With, Opportunity For Questions Given : Patient Patient Education Completed : Yes Teaching Method : Explanation, Printed materials Teaching Evaluation : Verbalizes understanding Education Comment : initial stroke education. daily stroke rounding. Alicia Portillo RN - 03/12/2020 14:09 EDT Electronically signed by [facility] Conversion Ballistics Expert Cerner at 02/16/2023 3:46 PM CDT documented in this encounter Plan of Treatment Upcoming Encounters Date Type Department Care Team (Late st Contact Info) Description 03/10/2025 1:15 PM EDT Office Visit [facility] Cardiology - [place] [address] [place] [address] Tabby Mcallister PA-C [address] [facility] [address] [place] [address] documented as of this encounter Visit Diagnoses Not on filedocumented in this encounter Care Teams Welding Robot Operator Relationship Specialty Start Date End Date Stacy Moise PA PCP - General 03/02/23 documented as of this encounter
--- OUTSIDE RECORDS SUMMARY | 2024-09-30 17:11 | XMS_ITS | Encounter Summary ---
Author Organization [email or web address] Address [address] [place] [address] Care Team Providers Care Wood Room Supervisor Name Role Phone Stacy Moise Primary Care Provider [phone] Encounter Details Date Type Department Care Team (Late st Contact Info) Description 03/12/2020 Transcribed Document [facility] [place] [facility] [place] [address] ProviderMireya MD [address] [place] [address] [id number] Social History Tobacco Use Types Packs/Day Years Used Date Smoking Tobacco: Never Assessed Sex and Gender Information Value Date Recorded Sex Assigned at Not on file Legal Sex Male 5:25 PM CDT Gender Identity Not on file Sexual Orientation Not on file documented as of this encounter Miscellaneous Notes * Cerner Conversion Note - Mireya Osuna MD - 03/12/2020 2:14 PM CDT Patient Education Materials Follows: Diabetes Mellitus and Nutrition, Adult When you have diabetes (diabetes mellitus), it is very important to have healthy eating habits because your blood sugar (glucose) levels are greatly affected by what you eat and drink. Eating healthy foods in the appropriate amounts, at about the same times every day, can help you: ??? Control your blood glucose. ??? Lower your risk of heart disease. ??? Improve your blood pressure. ??? Reach or maintain a healthy weight. Every person with diabetes is different, and each person has different needs for a meal plan. Your health care provider may recommend that you work with a diet and nutrition professor (dietitian) to make a meal plan that is best for you. Your meal plan may vary depending on factors such as: ??? The calories you need. ??? The medicines you take. ??? Your weight. ??? Your blood glucose, blood pressure, and cholesterol levels. ??? Your activity level. ??? Other health conditions you have, such as heart or kidney disease. How do carbohydrates affect me? Carbohydrates, also called carbs, affect your blood glucose level more than any other type of food. Eating carbs naturally raises the amount of glucose in your blood. Carb counting is a method for keeping track of how many carbs you eat. Counting carbs is important to keep your blood glucose at a healthy level, especially if you use insulin or take certain oral diabetes medicines. It is important to know how many carbs you can safely have in each meal. This is different for every person. Your dietitian can help you calculate how many carbs you should have at each meal and for each snack. Foods that contain carbs include: ??? Bread, cereal, rice, pasta, and crackers. ??? Potatoes and corn. ??? Peas, beans, and lentils. ??? Milk and yogurt. ??? Fruit and juice. ??? Desserts, such as cakes, cookies, ice cream, and candy. How does alcohol affect me? Alcohol can cause a sudden decrease in blood glucose (hypoglycemia), especially if you use insulin or take certain oral diabetes medicines. Hypoglycemia can be a life-threatening condition. Symptoms of hypoglycemia (sleepiness, dizziness, and confusion) are similar to symptoms of having too much alcohol. If your health care provider says that alcohol is safe for you, follow these guidelines: ??? Limit alcohol intake to no more than 1 drink per day for non women and 2 drinks per day for men. One drink equals 12 oz of beer, 5 oz of wine, or 1? oz of hard liquor. ??? Do not drink on an empty stomach. ??? Keep yourself hydrated with water, diet soda, or unsweetened iced tea. ??? Keep in mind that regular soda, juice, and other mixers may contain a lot of sugar and must be counted as carbs. What are tips for following this plan? Reading food labels ??? Start by checking the serving size on the Nutrition Facts label of packaged foods and drinks. The amount of calories, carbs, fats, and other nutrients listed on the label is based on one serving of the item. Many items contain more than one serving per package. ??? Check the total grams (g) of carbs in one serving. You can calculate the number of servings of carbs in one serving by dividing the total carbs by 15. For example, if a food has 30 g of total carbs, it would be equal to 2 servings of carbs. ??? Check the number of grams (g) of saturated and trans fats in one serving. Choose foods that have low or no amount of these fats. ??? Check the number of milligrams (mg) of salt (sodium) in one serving. Most people should limit total sodium intake to less than 2,300 mg per day. ??? Always check the nutrition information of foods labeled as low-fat or nonfat . These foods may be higher in added sugar or refined carbs and should be avoided. ??? Talk to your dietitian to identify your daily goals for nutrients listed on the label. Shopping ??? Avoid buying canned, premade, or processed foods. These foods tend to be high in fat, sodium, and added sugar. ??? Shop around the outside edge of the grocery store. This includes fresh fruits and vegetables, bulk grains, fresh meats, and fresh dairy. Cooking ??? Use low-heat cooking methods, such as baking, instead of high-heat cooking methods like deep frying. ??? Cook using healthy oils, such as olive, canola, or sunflower oil. ??? Avoid cooking with butter, cream, or high-fat meats. Meal planning ??? Eat meals and snacks regularly, preferably at the same times every day. Avoid going long periods of time without eating. ??? Eat foods high in fiber, such as fresh fruits, vegetables, beans, and whole grains. Talk to your dietitian about how many servings of carbs you can eat at each meal. ??? Eat 4?6 ounces (oz) of lean protein each day, such as lean meat, chicken, fish, eggs, or tofu. One oz of lean protein is equal to: ? 1 oz of meat, chicken, or fish. ? 1 egg. ? ? cup of tofu. ??? Eat some foods each day that contain healthy fats, such as avocado, nuts, seeds, and fish. Lifestyle ??? Check your blood glucose regularly. ??? Exercise regularly as told by your health care provider. This may include: ? 150 minutes of moderate-intensity or vigorous-intensity exercise each week. This could be brisk walking, biking, or water aerobics. ? Stretching and doing strength exercises, such as yoga or weightlifting, at least 2 times a week. ??? Take medicines as told by your health care provider. ??? Do not use any products that contain nicotine or tobacco, such as cigarettes and e-cigarettes. If you need help quitting, ask your health care provider. ??? Work with a counselor or oil filters inspector to identify strategies to manage stress and any emotional and social challenges. Questions to ask a health care provider ??? Do I need to meet with a oil filters inspector? Do I need to meet with a dietitian? What number can I call if I have questions? When are the best times to check my blood glucose? Where to find more information: ??? [place] [employer]: diabetes.org ??? Academy of Nutrition and Dietetics: www.eatright.org ??? National [place] of Diabetes and Digestive and Kidney Diseases (NIH): www.niddk.nih.gov Summary ??? A healthy meal plan will help you control your blood glucose and maintain a healthy lifestyle. ??? Working with a diet and nutrition professor (dietitian) can help you make a meal plan that is best for you. ??? Keep in mind that carbohydrates (carbs) and alcohol have immediate effects on your blood glucose levels. It is important to count carbs and to use alcohol carefully. This information is not intended to replace advice given to you by your health care provider. Make sure you discuss any questions you have with your health care provider. Document Released: 07/16/2006 Document Revised: 05/19/2018 Document Reviewed: 11/23/2017 [employer] Interactive Patient Education ? 2019 [employer] Type 2 Diabetes Mellitus, Diagnosis, Adult Type 2 diabetes (type 2 diabetes mellitus) is a long-term (chronic) disease. It may be caused by one or both of these problems: ??? Your pancreas does not make enough of a hormone called insulin. ??? Your body does not react in a normal way to insulin that it makes. Insulin lets sugars (glucose) go into cells in your body. This gives you energy. If you have type 2 diabetes, sugars cannot get into cells. This causes high blood sugar (hyperglycemia). Your doctor will set treatment goals for you. Generally, you should have these blood sugar levels: ??? Before meals (preprandial): 80?130 mg/dL (4.4?7.2 mmol/L). ??? After meals (postprandial): below 180 mg/dL (10 mmol/L). ??? A1c (hemoglobin A1c) level: less than 7%. Follow these instructions at home: Questions to ask your doctor ??? You may want to ask these questions: ? Do I need to meet with a oil filters inspector? ? Where can I find a support group for people with diabetes? ? What equipment will I need to care for myself at home? ? What diabetes medicines do I need? When should I take them? ? How often do I need to check my blood sugar? ? What number can I call if I have questions? ? When is my next doctor's visit? General instructions ??? Take csjo-gnm-imakigt and prescription medicines only as told by your doctor. ??? Keep all follow-up visits as told by your doctor. This is important. Contact a doctor if: ??? Your blood sugar is at or above 240 mg/dL (13.3 mmol/L) for 2 days in a row. ??? You have been sick for 2 days or more, and you are not getting better. ??? You have had a fever for 2 days or more, and you are not getting better. ??? You have any of these problems for more than 6 hours: ? You cannot eat or drink. ? You feel sick to your stomach (nauseous). ? You throw up (vomit). ? You have watery poop (diarrhea). Get help right away if: ??? Your blood sugar is lower than 54 mg/dL (3 mmol/L). ??? You get confused. ??? You have trouble: ? Thinking clearly. ? Breathing. ??? You have moderate or large ketone levels in your pee (urine). Summary ??? Type 2 diabetes is a long-term (chronic) disease. Your pancreas may not make enough of a hormone called insulin, or your body may not react normally to insulin that it makes. ??? Take obvi-zaj-knogcrj and prescription medicines only as told by your doctor. ??? Keep all follow-up visits as told by your doctor. This is important. This information is not intended to replace advice given to you by your health care provider. Make sure you discuss any questions you have with your health care provider. Document Released: 07/28/2009 Document Revised: 05/20/2018 Document Reviewed: 11/21/2016 [employer] Interactive Patient Education ? 2019 [employer]. Hypothyroidism Hypothyroidism is when the thyroid gland does not make enough of certain hormones (it is underactive). The thyroid gland is a small gland located in the lower front part of the neck, just in front of the windpipe (trachea). This gland makes hormones that help control how the body uses food for energy (metabolism) as well as how the heart and brain function. These hormones also play a role in keeping your bones strong. When the thyroid is underactive, it produces too little of the hormones thyroxine (T4) and triiodothyronine (T3). What are the causes? This condition may be caused by: ??? Tayler's disease. This is a disease in which the body's disease-fighting system (immune system) attacks the thyroid gland. This is the most common cause. ??? Viral infections. ??? . ??? Certain medicines. ??? defects. ??? Past radiation treatments to the head or neck for cancer. ??? Past treatment with radioactive iodine. ??? Past exposure to radiation in the environment. ??? Past surgical removal of part or all of the thyroid. ??? Problems with a gland in the center of the brain (pituitary gland). ??? Lack of enough iodine in the diet. What increases the risk? You are more likely to develop this condition if: ??? You are female. ??? You have a family history of thyroid conditions. ??? You use a medicine called lithium. ??? You take medicines that affect the immune system (immunosuppressants). What are the signs or symptoms? Symptoms of this condition include: ??? Feeling as though you have no energy (lethargy). ??? Not being able to tolerate cold. ??? Weight gain that is not explained by a change in diet or exercise habits. ??? Lack of appetite. ??? Dry skin. ??? Coarse hair. ??? Menstrual irregularity. ??? Slowing of thought processes. ??? Constipation. ??? Sadness or depression. How is this diagnosed? This condition may be diagnosed based on: ??? Your symptoms, your medical history, and a physical exam. ??? Blood tests. You may also have imaging tests, such as an ultrasound or MRI. How is this treated? This condition is treated with medicine that replaces the thyroid hormones that your body does not make. After you begin treatment, it may take several weeks for symptoms to go away. Follow these instructions at home: ??? Take yvav-ees-jrarzai and prescription medicines only as told by your health care provider. ??? If you start taking any new medicines, tell your health care provider. ??? Keep all follow-up visits as told by your health care provider. This is important. ? As your condition improves, your dosage of thyroid hormone medicine may change. ? You will need to have blood tests regularly so that your health care provider can monitor your condition. Contact a health care provider if: ??? Your symptoms do not get better with treatment. ??? You are taking thyroid replacement medicine and you: ? Sweat a lot. ? Have tremors. ? Feel anxious. ? Lose weight rapidly. ? Cannot tolerate heat. ? Have emotional swings. ? Have diarrhea. ? Feel weak. Get help right away if you have: ??? Chest pain. ??? An irregular heartbeat. ??? A rapid heartbeat. ??? Difficulty breathing. Summary ??? Hypothyroidism is when the thyroid gland does not make enough of certain hormones (it is underactive). ??? When the thyroid is underactive, it produces too little of the hormones thyroxine (T4) and triiodothyronine (T3). ??? The most common cause is Tayler's disease, a disease in which the body's disease-fighting system (immune system) attacks the thyroid gland. The condition can also be caused by viral infections, medicine, , or past radiation treatment to the head or neck. ??? Symptoms may include weight gain, dry skin, constipation, feeling as though you do not have energy, and not being able to tolerate cold. ??? This condition is treated with medicine to replace the thyroid hormones that your body does not make. This information is not intended to replace advice given to you by your health care provider. Make sure you discuss any questions you have with your health care provider. Document Released: 10/19/2006 Document Revised: 09/29/2018 Document Reviewed: 09/29/2018 [employer] Interactive Patient Education ? 2019 [employer] documented in this encounter Plan of Treatment Upcoming Encounters Date Type Department Care Team (Late st Contact Info) Description 03/10/2025 1:15 PM EDT Office Visit [facility] Cardiology - [place] [address] [place] [address] Tabby Mcallister PA-C [address] [place] [phone] documented as of this encounter Visit Diagnoses Not on filedocumented in this encounter Care Teams Wood Room Supervisor Relationship Specialty Start Date End Date Stacy Moise PA PCP - General 03/02/23 documented as of this encounter
--- OUTSIDE RECORDS SUMMARY | 2024-09-30 17:11 | XMS_ITS | Encounter Summary ---
Author Organization [employer] Address [address] [facility] [place] [address] Care Team Providers Care Soldering Machine Feeder Name Role Phone Stacy Moise Primary Care Provider [phone] Encounter Details Date Type Department Care Team (Late st Contact Info) Description 03/11/2020 Transcribed Document [facility] [place] [address] [place] [address] ProviderMireya MD [address] [place] [address] [id number] Social History Tobacco Use Types Packs/Day Years Used Date Smoking Tobacco: Never Assessed Sex and Gender Information Value Date Recorded Sex Assigned at Not on file Legal Sex Male 5:25 PM CDT Gender Identity Not on file Sexual Orientation Not on file documented as of this encounter Miscellaneous Notes * Cerner Conversion Note - Historical ProviderMD - 03/11/2020 5:00 PM CDT Chart Check - Review Order Profile Entered On: 03/11/2020 17:01 EDT Performed On: 03/11/2020 17:00 EDT by Alicia Portillo, RN Chart Check All Active Orders Reviewed : Yes Alicia Portillo RN - 03/11/2020 17:00 EDT Electronically signed by Katie Pizraro Conversion [facility] Coordinator Cergalina at 02/16/2023 3:54 PM CDT documented in this encounter Plan of Treatment Upcoming Encounters Date Type Department Care Team (Late st Contact Info) Description 03/10/2025 1:15 PM EDT Office Visit [facility] Cardiology - [place] [address] [place] [phone] Tabby Mcallister PA-C [address] [place] [phone] documented as of this encounter Visit Diagnoses Not on filedocumented in this encounter Care Teams Soldering Machine Feeder Relationship Specialty Start Date End Date Stacy Moise PA PCP - General 03/02/23 documented as of this encounter
--- OUTSIDE RECORDS SUMMARY | 2024-09-30 17:11 | XMS_ITS | Encounter Summary ---
Author Organization [employer] Address [address] [place] [address] Care Team Providers Care Therapist Speech Name Role Phone Stacy Moise Primary Care Provider [phone] Encounter Details Date Type Department Care Team (Late st Contact Info) Description 03/11/2020 Transcribed Document [facility] [place] Medicine [address] [place] [address] ProviderMireya MD [address] [place] [address] [phone] Social History Tobacco Use Types Packs/Day Years Used Date Smoking Tobacco: Never Assessed Sex and Gender Information Value Date Recorded Sex Assigned at Not on file Legal Sex Male 5:25 PM CDT Gender Identity Not on file Sexual Orientation Not on file documented as of this encounter Miscellaneous Notes * Cerner Conversion Note - Historical ProviderMD - 03/11/2020 12:30 PM CDT So-Hi OT Charges Entered On: 03/11/2020 12:30 EDT Performed On: 03/11/2020 12:30 EDT by MIGEL ACOSTA OTR/Terri BergerSo-Hi OT Charges Screen For Wood Buffer : 1 MIGEL ACOSTA OTR/Terri - 03/11/2020 12:30 EDT documented in this encounter Plan of Treatment Upcoming Encounters Date Type Department Care Team (Late st Contact Info) Description 03/10/2025 1:15 PM EDT Office Visit [facility] Cardiology - [address] [phone] Tabby Mcallister PA-C [address] [phone] documented as of this encounter Visit Diagnoses Not on filedocumented in this encounter Care Teams Therapist Speech Relationship Specialty Start Date End Date Stacy Moise PA PCP - General 03/02/23 documented as of this encounter
--- OUTSIDE RECORDS SUMMARY | 2024-09-30 17:11 | XMS_ITS | Encounter Summary ---
Author Organization [employer] Address [address] [facility] [place] [address] Care Team Providers Care Qc Analyst Name Role Phone Stacy Moise Primary Care Provider [phone] Encounter Details Date Type Department Care Team (Late st Contact Info) Description 11/26/2020 Transcribed Document [facility] Family Medicine [facility] [place] [address] ProviderMireya MD [address] [place] [id number] Social History Tobacco Use Types Packs/Day Years Used Date Smoking Tobacco: Never Assessed Sex and Gender Information Value Date Recorded Sex Assigned at Not on file Legal Sex Male 5:25 PM CDT Gender Identity Not on file Sexual Orientation Not on file documented as of this encounter Miscellaneous Notes * Cerner Conversion Note - Mireya ProviderMD - 11/26/2020 12:18 PM DAIRY PROCESSING EQUIPMENT OPERATOR ED Triage Entered On: 11/26/2020 12:27 EST Performed On: 11/26/2020 12:23 EST by Etelvina Swartz WEAVER [employer] Triage Across the Room Chief Complaint : pt c/o having a headache all day long yesterday then waking up to feel like I slept too hard on the left side of my head . pt reports, numbness to the left side of head . on plavix Triage Date/Time : 11/26/2020 12:23 EST Etelvina Swartz RN - 11/26/2020 12:23 EST DCP GENERIC CODE Tracking Acuity : 2 - Emergent Tracking Group : [facility] ED Etelvina Swartz RN - 11/26/2020 12:23 EST Mode of Arrival : Ambulatory Transported to ED by : Private vehicle To Room Via : Wheelchair Accompanied By : Significant other ED Vital Signs : Document Height & Weight : Document ED Allergies : Document ED Reason for Visit : Document Tetanus Immunization : Unknown Receivables Specialist Needed : No Etelvina Swartz RN - 11/26/2020 12:23 EST Infectious Disease History Has the patient ever been tested for COVID-19? : No, Patient stated Does patient have symptoms of COVID-19? : No COVID19 Screening : No Experiencing Infectious Disease Symptoms : No symptoms Physical contact outside [place] in the last 30 days : No Infectious Disease History : Chicken pox/Shingles, Measles, Mumps, Pertussis (Whooping cough) Tuberculosis Symptoms : None Etelvina Swartz RN - 11/26/2020 12:23 EST Vital Signs ED Temperature Source : Tympanic Temperature Mode : Fahrenheit Temperature, Fahrenheit : 97.3 Deg F Clinical Temperature, C : 36.3 Deg C Oxygen Therapy Mode : Room air Peripheral Pulse Rate : 65 bpm Respiratory Rate : 20 Breaths/Min Systolic Blood Pressure : 178 mmHg (HI) Diastolic Blood Pressure : 83 mmHg Oxygen Saturation : 98 % Etelvina Swartz RN - 11/26/2020 12:23 EST Allergy (As Of: 11/26/2020 12:27:46 EST) Allergies (Active) No Known Medication Allergies Estimated Onset Date: Unspecified ; Created By: SHEILA MARTINEZ RN; Reaction Status: Active ; Category: Drug ; Substance: No Known Medication Allergies ; Type: Allergy ; Updated By: SHEILA MARTINEZ RN; Reviewed Date: 11/26/2020 12:25 EST Diagnosis Control ED (As Of: 11/26/2020 12:27:46 EST) Problems(Active) Anemia (hx of) (SNOMED CT :190869218 ) Name of Problem: Anemia (hx of) ; Recorder: QUOC HALL RN; Confirmation: Confirmed ; Classification: Medical ; Code: [id number] ; Contributor System: [employer] ; Last Updated: 01/13/2020 11:12 EDT ; Life Cycle Date: 01/13/2020 ; Life Cycle Status: Active ; Vocabulary: SNOMED CT Angina (hx of, Last had in 2016) (SNOMED CT :877156520 ) Name of Problem: Angina (hx of, Last had in 2016) ; Recorder: RENETTA TRAYLOR RN; Confirmation: Confirmed ; Classification: Medical ; Code: [id number] ; Contributor System: [employer] ; Last Updated: 01/13/2020 11:09 EDT ; Life Cycle Status: Active ; Vocabulary: SNOMED CT Aortic valve disease (SNOMED CT :73737387 ) Name of Problem: Aortic valve disease ; Recorder: Jhon Perez RN; Confirmation: Confirmed ; Classification: Medical ; Code: 50564747 ; Contributor System: [employer] ; Last Updated: 05/24/2015 21:46 EDT ; Life Cycle Date: 05/24/2015 ; Life Cycle Status: Active ; Vocabulary: SNOMED CT Arthritis (SNOMED CT :4646098 ) Name of Problem: Arthritis ; Recorder: RENETTA TRAYLOR RN; Confirmation: Confirmed ; Classification: Medical ; Code: 5980357 ; Contributor System: [employer] ; Last Updated: 12/23/2018 11:50 EST ; Life Cycle Date: 12/23/2018 ; Life Cycle Status: Active ; Vocabulary: SNOMED CT At risk for sleep apnea (IMO :96681975 ) Name of Problem: At risk for sleep apnea ; Recorder: SYSTEM, SYSTEM; Confirmation: Confirmed ; Classification: Medical ; Code: 87904038 ; Last Updated: 12/23/2018 12:09 EST ; Life Cycle Date: 12/23/2018 ; Life Cycle Status: Active ; Vocabulary: IMO Back pain (SNOMED CT :6211195406 ) Name of Problem: Back pain ; Recorder: RENETTA TRAYLOR RN; Confirmation: Confirmed ; Classification: Medical ; Code: 4266223661 ; Contributor System: [employer] ; Last Updated: 12/23/2018 11:50 EST ; Life Cycle Date: 12/23/2018 ; Life Cycle Status: Active ; Vocabulary: SNOMED CT CAD (coronary artery disease) (SNOMED CT :41118456 ) Name of Problem: CAD (coronary artery disease) ; Recorder: John Perez RN; Confirmation: Confirmed ; Classification: Medical ; Code: 79837911 ; Contributor System: [employer] ; Last Updated: 05/24/2015 21:45 EDT ; Life Cycle Date: 05/24/2015 ; Life Cycle Status: Active ; Vocabulary: SNOMED CT Cervical spinal stenosis (SNOMED CT :575120553 ) Name of Problem: Cervical spinal stenosis ; Recorder: QUOC HALL RN; Confirmation: Confirmed ; Classification: Medical ; Code: 517571295 ; Contributor System: [employer] ; Last Updated: 01/13/2020 11:13 EDT ; Life Cycle Date: 01/13/2020 ; Life Cycle Status: Active ; Vocabulary: SNOMED CT Claudication (SNOMED CT :280127535 ) Name of Problem: Claudication ; Recorder: ALFREDA CASTILLO; Confirmation: Confirmed ; Classification: Medical ; Code: 089029505 ; Contributor System: [employer] ; Last Updated: 06/13/2019 12:55 EDT ; Life Cycle Date: 06/13/2019 ; Life Cycle Status: Active ; Vocabulary: SNOMED CT Colorectal surgery (SNOMED CT :6634377944 ) Name of Problem: Colorectal surgery ; Recorder: QUOC HALL RN; Confirmation: Confirmed ; Classification: Medical ; Code: 3021215398 ; Contributor System: [employer] ; Last Updated: 01/13/2020 11:12 EDT ; Life Cycle Date: 01/13/2020 ; Life Cycle Status: Active ; Vocabulary: SNOMED CT Disorder of prostate (SNOMED CT :78011020 ) Name of Problem: Disorder of prostate ; Recorder: LILIANA CAMILO RN; Confirmation: Confirmed ; Classification: Patient Stated ; Code: 98022198 ; Contributor System: [employer] ; Last Updated: 04/19/2018 9:14 EDT ; Life Cycle Date: 04/19/2018 ; Life Cycle Status: Active ; Vocabulary: SNOMED CT Diverticulitis///HX (SNOMED CT :866257196 ) Name of Problem: Diverticulitis///HX ; Recorder: RENETTA TRAYLOR RN; Confirmation: Confirmed ; Classification: Medical ; Code: 662464289 ; Contributor System: Power[employer] ; Last Updated: 12/23/2018 11:46 EST ; Life Cycle Date: 12/23/2018 ; Life Cycle Status: Active ; Vocabulary: SNOMED CT Dizzy spells (occasional) (SNOMED CT :062958433 ) Name of Problem: Dizzy spells (occasional) ; Recorder: QUOC HALL RN; Confirmation: Confirmed ; Classification: Medical ; Code: 606980603 ; Contributor System: [employer] ; Last Updated: 01/13/2020 11:16 EDT ; Life Cycle Date: 01/13/2020 ; Life Cycle Status: Active ; Vocabulary: SNOMED CT Fatty liver (SNOMED CT :487728180 ) Name of Problem: Fatty liver ; Recorder: QUOC HALL RN; Confirmation: Confirmed ; Classification: Medical ; Code: 904007091 ; Contributor System: [employer] ; Last Updated: 01/13/2020 11:14 EDT ; Life Cycle Date: 01/13/2020 ; Life Cycle Status: Active ; Vocabulary: SNOMED CT GERD - Gastro-esophageal reflux disease (SNOMED CT :6827647888 ) Name of Problem: GERD - Gastro-esophageal reflux disease ; Recorder: RENETTA TRAYLOR RN; Confirmation: Confirmed ; Classification: Medical ; Code: 9206712659 ; Contributor System: [employer] ; Last Updated: 12/23/2018 11:49 EST ; Life Cycle Date: 12/23/2018 ; Life Cycle Status: Active ; Vocabulary: SNOMED CT Hard of hearing (SNOMED CT :366061604 ) Name of Problem: Hard of hearing ; Recorder: LILIANA CAMILO RN; Confirmation: Confirmed ; Classification: Patient Stated ; Code: 204656259 ; Contributor System: Power[employer] ; Last Updated: 04/19/2018 9:13 EDT ; Life Cycle Date: 04/19/2018 ; Life Cycle Status: Active ; Vocabulary: SNOMED CT Has been smoking for 30 years ([address] :681641221 ) Name of Problem: Has been smoking for 30 years ; Recorder: Nieves Fraga, Registered Nurse; Confirmation: Confirmed ; Classification: Patient Stated ; Code: 246601360 ; Contributor System: [employer] ; Last Updated: 03/08/2020 10:17 EDT ; Life Cycle Date: 03/08/2020 ; Life Cycle Status: Active ; Vocabulary: SNOMED CT High cholesterol (SNOMED CT :95022252 ) Name of Problem: High cholesterol ; Recorder: Jhon Perez, MIKE; Confirmation: Confirmed ; Classification: Medical ; Code: 44019375 ; Contributor System: [employer] ; Last Updated: 05/24/2015 21:46 EDT ; Life Cycle Date: 05/24/2015 ; Life Cycle Status: Active ; Vocabulary: SNOMED CT HTN (hypertension) (SNOMED CT :7620639237 ) Name of Problem: HTN (hypertension) ; Recorder: Jhon Perez RN; Confirmation: Confirmed ; Classification: Medical ; Code: 2414688339 ; Contributor System: [employer] ; Last Updated: 05/24/2015 21:45 EDT ; Life Cycle Date: 05/24/2015 ; Life Cycle Status: Active ; Vocabulary: SNOMED CT Murmur (SNOMED CT :166866997 ) Name of Problem: Murmur ; Recorder: RENETTA TRAYLOR RN; Confirmation: Confirmed ; Classification: Medical ; Code: 186327109 ; Contributor System: [employer] ; Last Updated: 12/23/2018 11:49 EST ; Life Cycle Date: 12/23/2018 ; Life Cycle Status: Active ; Vocabulary: SNOMED CT Peripheral vascular disease (SNOMED CT :4188893579 ) Name of Problem: Peripheral vascular disease ; Recorder: LILIANA CAMILO RN; Confirmation: Confirmed ; Classification: Patient Stated ; Code: 6291642858 ; Contributor System: Power[employer] ; Last Updated: 04/19/2018 9:13 EDT ; Life Cycle Date: 04/19/2018 ; Life Cycle Status: Active ; Vocabulary: SNOMED CT Prediabetes (SNOMED CT :9841783843 ) Name of Problem: Prediabetes ; Recorder: QUOC HALL RN; Confirmation: Confirmed ; Classification: Medical ; Code: 6730880477 ; Contributor System: [employer] ; Last Updated: 01/13/2020 11:12 EDT ; Life Cycle Date: 01/13/2020 ; Life Cycle Status: Active ; Vocabulary: SNOMED CT Prostatitis/ (SNOMED CT :15017627 ) Name of Problem: Prostatitis/ ; Recorder: RENETTA TRAYLOR RN; Confirmation: Confirmed ; Classification: Medical ; Code: 43586216 ; Contributor System: [employer] ; Last Updated: 12/23/2018 11:47 EST ; Life Cycle Status: Active ; Vocabulary: SNOMED CT Renal calculus///HX (SNOMED CT :323393465 ) Name of Problem: Renal calculus///HX ; Recorder: RENETTA TRAYLOR RN; Confirmation: Confirmed ; Classification: Medical ; Code: 049783751 ; Contributor System: [employer] ; Last Updated: 12/23/2018 11:50 EST ; Life Cycle Date: 12/23/2018 ; Life Cycle Status: Active ; Vocabulary: SNOMED CT Stented coronary artery (SNOMED CT :3675950893 ) Name of Problem: Stented coronary artery ; Recorder: RENETTA TRAYLOR RN; Confirmation: Confirmed ; Classification: Medical ; Code: 3178339666 ; Contributor System: [employer] ; Last Updated: 12/23/2018 11:48 EST ; Life Cycle Date: 12/23/2018 ; Life Cycle Status: Active ; Vocabulary: SNOMED CT Diagnoses(Active) Pain in head Date: 11/26/2020 ; Diagnosis Type: Reason For Visit ; Confirmation: Complaint of ; Clinical Dx: Pain in head ; Classification: Medical ; Clinical Service: Emergency medicine ; Code: PNED ; Probability: 0 ; Diagnosis Code: [id number] ED Height and Weight Height Source : Stated Height Entry Format : [place] Height, Feet : 5 ft(Converted to: 152 cm, 60 Inch) Height, Inches : 9 Inch(Converted to: 0 ft 9 Inch, 22.86 cm) Clinical Height : 175.26 cm Weight Source, ED : Critical estimated dosing weight Weight Entry Format : [place] Weight, Pounds : 170 lb Clinical Dosing Weight : 77.27 kg Body Surface Area (BSA) : 1.93 m2 Body Mass Index : 25.2 kg/m2 (HI) Theresa Body Weight (IBW) : 69.73 kg Etelvina Swartz RN - 11/26/2020 12:23 EST Electronically signed by Juarez [facility] Conversion [employer] Archivist Cerner at 02/16/2023 3:57 PM CDT documented in this encounter Plan of Treatment Upcoming Encounters Date Type Department Care Team (Late st Contact Info) Description 03/10/2025 1:15 PM EDT Office Visit [facility] - [place] [address] [place] [address] Tabby Mcallister PA-C [address] [facility] [address] [place] [address] documented as of this encounter Visit Diagnoses Not on filedocumented in this encounter Care Teams Qc Analyst Relationship Specialty Start Date End Date Stacy Moise PA PCP - General 03/02/23 documented as of this encounter
--- OUTSIDE RECORDS SUMMARY | 2024-09-30 17:11 | XMS_ITS | Encounter Summary ---
Author Organization [employer] [address] [facility] [place] [address] Care Team Providers Care Call Center Nurse Name Role Phone Stacy Moise Primary Care Provider [phone] Encounter Details Date Type Department Care Team (Late st Contact Info) Description 11/26/2020 Transcribed Document [facility] [place] [address] ProviderMireya MD [address] [place] [id number] [id number] Social History Tobacco Use Types Packs/Day Years Used Date Smoking Tobacco: Never Assessed Sex and Gender Information Value Date Recorded Sex Assigned at Not on file Legal Sex Male 5:25 PM CDT Gender Identity Not on file Sexual Orientation Not on file documented as of this encounter Miscellaneous Notes * Cerner Conversion Note - Mireya ProviderMD - 11/26/2020 2:16 PM [employer] Patient: SCOTTIE CURRAN Age: 75 years Sex: Male : 1945 Associated Diagnoses: Head ache Author: RUTHIE DE LA TORRE APRN Basic Information Additional information: Chief Complaint from Nursing Triage Note : Chief Complaint 11/26/2020 12:23 EST Chief Complaint pt c/o having a headache all day long yesterday then waking up to feel like I slept too hard on the left side of my head . pt reports, numbness to the left side of head . on plavix . History of Present Illness The patient presents with headache. The onset was 1 days ago. The course/duration of symptoms is constant. Location: Left temporal parietal. Radiating pain: none. The character of symptoms is dull. The degree at onset was minimal. The degree at maximum was minimal. The degree at present is minimal. The exacerbating factor is none. The relieving factor is none. Risk factors consist of hypertension and TIA, CAD. Prior episodes: rare. Therapy today: none. Preceding symptoms: none. Associated symptoms: numbness along the left side of the head/face. Review of Systems Constitutional symptoms: No fever, no chills, no sweats, no weakness, no fatigue. Skin symptoms: No rash, Eye symptoms: Vision unchanged, no pain, no discharge, no blurred vision. ENMT symptoms: No ear pain, no sore throat, no nasal congestion. Respiratory symptoms: No shortness of breath, no cough. Cardiovascular symptoms: No chest pain, no palpitations, no syncope. Gastrointestinal symptoms: No abdominal pain, no nausea, no vomiting, no diarrhea. Genitourinary symptoms: No dysuria, no hematuria. Musculoskeletal symptoms: No back pain, no Joint pain. Neurologic symptoms: Headache, numbness, no dizziness, no weakness. Health Status Allergies: Allergic Reactions (Selected) No Known Medication Allergies. Medications: (Selected) Prescriptions Prescribed Lipitor 20 mg oral tablet: 2 Tab, Oral, At Bedtime, 60 Tab, 0 Refill(s) Plavix 75 mg oral tablet: 1 Tab, Oral, Daily, 30 Tab, 0 Refill(s) Synthroid 25 mcg (0.025 mg) oral tablet: 0.5 Tab, Oral, Daily, 15 Tab, 0 Refill(s) Documented Medications Documented Aspir 81: 81 mg, Oral, Daily, 0 Refill(s) Bystolic 10 mg oral tablet: 1 Tab, Oral, Daily, 0 Refill(s) Flonase: 2 [place], Nasal, EveryOtherDay, PRN: Allergies, 0 Refill(s) Konsyl: Oral, EveryOtherDay, 0 Refill(s) Lopid 600 mg oral tablet: 1 Tab, Oral, BID, 0 Refill(s) NexIUM 24HR 20 mg oral delayed release capsule: Cap, Oral, Daily, 0 Refill(s) Nitrostat 0.4 mg sublingual tablet: 1 Tab, SubLINgual, Q5Min, PRN: Chest Pain Norvasc 10 mg oral tablet: 1 Tab, Oral, Daily, 0 Refill(s) Proscar: 5 mg, Oral, Daily, 0 Refill(s) Vitamin B12: 1,000 mcg, Oral, Daily, 0 Refill(s) ZyrTEC: 10 mg, Oral, Daily, PRN: as needed for allergy symptoms, 0 Refill(s) furosemide 20 mg oral tablet: 1 Tab, Oral, Daily, 0 Refill(s) isosorbide mononitrate: 30 mg, Oral, QAM, 0 Refill(s) potassium chloride 20 mEq oral tablet, extended release: Tab, Oral, BID, 0 Refill(s). Past Medical/ Family/ Social History Surgical history: heart cath in 2017 at 72 Years. cardiac stents. left lower extremity vascular stent x2. hand surgery. S/P cholecystectomy (SNOMED CT [id number]). colon resection. Cataract surgery (SNOMED CT [id number]). Colonoscopy (SNOMED CT [id number]). renal stent///2018. right leg balloon. back fusion lumbar 5 S1 -2018., Reviewed as documented in chart. Family history: No family history items have been selected or recorded., Reviewed as documented in chart. Social history: Social & Psychosocial Habits Alcohol 11/18/2016 Alcohol Use History, Social Habits Yes Alcohol Use Frequency Rarely Home/Environment 07/21/2014 Lives with: Spouse Living situation: Home/Independent Substance Abuse 12/23/2018 Recreational Drug Use History No Recreational Drug Use Last 12 Months No Tobacco 11/18/2016 Smoking Status Current every day smoker Years of Tobacco Use 55 Packs/Tins Daily 1 03/11/2020 Smoking Status 10 or more cigarettes (1/ Comment: Pt states he smokes 12 cigarettes per day - 03/11/2020 00:13 - JOHNSON JACKMAN RN , Reviewed as documented in chart. Problem list: Active Problems (25) Anemia (hx of) Angina (hx of, Last had in 2017) Aortic valve disease Arthritis At risk for sleep apnea Back pain CAD (coronary artery disease) Cervical spinal stenosis Claudication Colorectal surgery Disorder of prostate Diverticulitis///HX Dizzy spells (occasional) Fatty liver GERD - Gastro-esophageal reflux disease Hard of hearing Has been smoking for 30 years High cholesterol HTN (hypertension) Murmur Peripheral vascular disease Prediabetes Prostatitis///12/2018 Renal calculus///HX Stented coronary artery , per nurse's notes. Physical Examination Vital Signs Vital Signs/Vital Measures 11/26/2020 12:23 EST Systolic Blood Pressure 178 mmHg HI Diastolic Blood Pressure 83 mmHg Temperature Source Tympanic Temperature Mode Fahrenheit Temperature, Fahrenheit 97.3 Deg F Clinical Temperature, C 36.3 Deg C Peripheral Pulse Rate 65 bpm Respiratory Rate 20 Breaths/Min Oxygen Saturation 98 % Oxygen Therapy Mode Room air . Measurements 11/26/2020 12:23 EST Height Source Stated Height Entry Format [place] Height/Length, [place] (ft) 5 ft Height/Length [place] 9 Inch CLINICALHEIGHT 175.26 cm [place] Body Weight 69.73 kg Weight Source, ED Critical estimated dosing weight Weight Entry Format [place] Weight [place] lb 170 lb CLINICALWEIGHT 77.27 kg Body Surface Area (BSA) 1.93 m2 Body Mass Index 25.2 kg/m2 HI . Oxygen Saturation 11/26/2020 12:23 EST Oxygen Saturation 98 % . General: Alert, no acute distress. Skin: Warm. Head: Normocephalic. Neck: Supple. Eye: Sclera: not icteric. Ears, nose, mouth and throat: Oral mucosa moist. Cardiovascular: Regular rate and rhythm, No murmur, Normal peripheral perfusion, No edema. Respiratory: Lungs are clear to auscultation, respirations are non-labored, breath sounds are equal. Chest wall: No tenderness. Back: Nontender. Gastrointestinal: Soft, Nontender, Non distended, Normal bowel sounds. Neurological: Alert and oriented to person, place, time, and situation, No focal neurological deficit observed, CN II-XII intact, normal motor observed, normal speech observed, normal coordination observed, Sensory: Facial left, diminished. Lymphatics: No lymphadenopathy. Psychiatric: Cooperative. Medical Decision Making Differential Diagnosis: Migraine, tension headache, sinusitis, temporal arteritis, subarachnoid hemorrhage, cerebral vascular accident, transient ischemic attack, intracranial hemorrhage, viral syndrome. Documents reviewed: Emergency department nurses' notes. Orders Include Previous Orders (Selected) Inpatient Orders Ordered ED Fall Risk Documented: Ordered (Exam Completed) CR Chest 2 Vws: Completed .Automated Differential: :Glucose POC: BMP Basic Metabolic Panel: Broset Violence Assessment: CBC w/ Auto Diff: CT Head WO: CTA Head: CTA Neck: ED Adult Fall Risk Assessment: ED Adult Triage: ED C-SSRS: ED Clinical Reconciliation: ED monument setter helper: EKG: NIH Stroke Scale Assessment: POC Glucose: PT/INR Prothrombin Time: PTT: Troponin I Ultra: iopamidol: 75 mL, IV Push, ADHOC Discontinued CR Chest PA & Lat: . Electrocardiogram: Time 11/26/2020 12:30:00, rate 62, normal sinus rhythm, No ST changes, no ectopy, normal IL & QRS intervals, EP Interp. Results review: Lab results : Lab Results, Reviewed Results: Lab results : Lab Results(Date Range: 11/25/2020 0:00 EST - 11/26/2020 18:21 EST), Lab results : Lab Results 11/26/2020 17:50 EST Device Comment 1 11/26/2020 17:54 EST WBC 14.2 K/uL HI RBC 4.35 Million/uL Hgb 12.9 g/dL LOW Hct 39.0 % LOW MCV 89.7 fL MCH 29.7 pg MCHC 33.1 Gram/dL Platelet Count 372 K/uL HI MPV 10.0 fL RDW 13.7 % Neut % 69.3 % Neut # 9.86 K/uL HI Lymph % 18.3 % LOW Lymph # 2.60 x10(3)/uL Gila % 9.7 % HI Gila # 1.38 K/uL HI Eos % 1.7 % Eos # 0.24 x10(3)/uL Baso % 0.3 % Baso # 0.04 x10(3)/uL Slide Review No IG# 0.10 x10(3)/uL HI IG% 0.70 % HI 11/26/2020 17:50 EST Glucose POC2 106 mg/dL 11/26/2020 12:30 EST Sodium Level 139 mmol/L Potassium Level 3.8 mmol/L Chloride Level 111 mmol/L Carbon Dioxide Level 23 mmol/L Anion Gap 9 Glucose Level 158 mg/dL HI Blood Urea Nitrogen 19 mg/dL Creatinine Level 1.00 mg/dL eGFR >60 mL/min/1.73m2 eGFR NonAfrican >60 mL/min/1.73m2 Bun/Creatinine 19.0 Calcium Level 9.4 mg/dL Troponin I Ultra <0.015 ng/mL PT 10.9 Second(s) INR 1.0 PTT 26.1 Second(s) . Radiology results: Radiology Results (Last 48 hours) [id number] -- 11/26/2020 12:18 CT Head WO (11/26/2020 17:07) Result: HEAD CTHISTORY: Facial weaknessTECHNIQUE: Multiple axial CT images were performed from the foramenmagnum to the vertex without contrast. This study was performed withtechniques to keep radiation doses as low as reasonably achievable,(ALARA). Individualized dose reduction techniques using automatedexposure control or adjustment of mA and/or kV according to the patientsize were employed.COMPARISON: None.FINDINGS: The ventricles are normal. There is no mass or shift ofmidline structures. There is no intracranial hemorrhage. No significantsinus or osseous abnormality seen.IMPRESSION: Unremarkable.CT NECK ANGIO, WITHOUT AND WITH CONTRASTHISTORY: As aboveTECHNIQUE: Thin-section axial CT with IV contrast supplemented withmultiplanar reconstruction. This study was performed with techniques tokeep radiation doses as low as reasonably achievable, (ALARA).Individualized dose reduction techniques using automated exposurecontrol or adjustment of mA and/or kV according to the patient size wereemployed.COMPARISON: None.FINDINGS:Aortic arch: No significant abnormality.Right carotid: There is a less than 50% stenosis involving the carotidbulb. The ICA is otherwise unremarkable. The CCA is normal.Left carotid: Unremarkable.Vertebrals: Unremarkable.IMPRESSION: No significant stenosis.CTA HEADHISTORY: As aboveTECHNIQUE: Thin-section axial CT with contrast with multiplanarreconstruction. This study was performed with techniques to keepradiation doses as low as reasonably achievable, (ALARA). Individualizeddose reduction techniques using automated exposure control or adjustmentof mA and/or kV according to the patient size were employed.FINDINGS: The intracranial portions of the internal carotid arteriesdemonstrate atherosclerotic calcification, but there is no apparentstenosis. The anterior and middle cerebral arteries are unremarkablebilaterally. The intracranial vertebral arteries, the basilar artery andtheir major branches are also within normal limits.IMPRESSION: No apparent stenosis. CTA Head (11/26/2020 17:08) Result: HEAD CTHISTORY: Facial weaknessTECHNIQUE: Multiple axial CT images were performed from the foramenmagnum to the vertex without contrast. This study was performed withtechniques to keep radiation doses as low as reasonably achievable,(ALARA). Individualized dose reduction techniques using automatedexposure control or adjustment of mA and/or kV according to the patientsize were employed.COMPARISON: None.FINDINGS: The ventricles are normal. There is no mass or shift ofmidline structures. There is no intracranial hemorrhage. No significantsinus or osseous abnormality seen.IMPRESSION: Unremarkable.CT NECK ANGIO, WITHOUT AND WITH CONTRASTHISTORY: As aboveTECHNIQUE: Thin-section axial CT with IV contrast supplemented withmultiplanar reconstruction. This study was performed with techniques tokeep radiation doses as low as reasonably achievable, (ALARA).Individualized dose reduction techniques using automated exposurecontrol or adjustment of mA and/or kV according to the patient size wereemployed.COMPARISON: None.FINDINGS:Aortic arch: No significant abnormality.Right carotid: There is a less than 50% stenosis involving the carotidbulb. The ICA is otherwise unremarkable. The CCA is normal.Left carotid: Unremarkable.Vertebrals: Unremarkable.IMPRESSION: No significant stenosis.CTA HEADHISTORY: As aboveTECHNIQUE: Thin-section axial CT with contrast with multiplanarreconstruction. This study was performed with techniques to keepradiation doses as low as reasonably achievable, (ALARA). Individualizeddose reduction techniques using automated exposure control or adjustmentof mA and/or kV according to the patient size were employed.FINDINGS: The intracranial portions of the internal carotid arteriesdemonstrate atherosclerotic calcification, but there is no apparentstenosis. The anterior and middle cerebral arteries are unremarkablebilaterally. The intracranial vertebral arteries, the basilar artery andtheir major branches are also within normal limits.IMPRESSION: No apparent stenosis. CTA Neck (11/26/2020 17:08) Result: HEAD CTHISTORY: Facial weaknessTECHNIQUE: Multiple axial CT images were performed from the foramenmagnum to the vertex without contrast. This study was performed withtechniques to keep radiation doses as low as reasonably achievable,(ALARA). Individualized dose reduction techniques using automatedexposure control or adjustment of mA and/or kV according to the patientsize were employed.COMPARISON: None.FINDINGS: The ventricles are normal. There is no mass or shift ofmidline structures. There is no intracranial hemorrhage. No significantsinus or osseous abnormality seen.IMPRESSION: Unremarkable.CT NECK ANGIO, WITHOUT AND WITH CONTRASTHISTORY: As aboveTECHNIQUE: Thin-section axial CT with IV contrast supplemented withmultiplanar reconstruction. This study was performed with techniques tokeep radiation doses as low as reasonably achievable, (ALARA).Individualized dose reduction techniques using automated exposurecontrol or adjustment of mA and/or kV according to the patient size wereemployed.COMPARISON: None.FINDINGS:Aortic arch: No significant abnormality.Right carotid: There is a less than 50% stenosis involving the carotidbulb. The ICA is otherwise unremarkable. The CCA is normal.Left carotid: Unremarkable.Vertebrals: Unremarkable.IMPRESSION: No significant stenosis.CTA HEADHISTORY: As aboveTECHNIQUE: Thin-section axial CT with contrast with multiplanarreconstruction. This study was performed with techniques to keepradiation doses as low as reasonably achievable, (ALARA). Individualizeddose reduction techniques using automated exposure control or adjustmentof mA and/or kV according to the patient size were employed.FINDINGS: The intracranial portions of the internal carotid arteriesdemonstrate atherosclerotic calcification, but there is no apparentstenosis. The anterior and middle cerebral arteries are unremarkablebilaterally. The intracranial vertebral arteries, the basilar artery andtheir major branches are also within normal limits.IMPRESSION: No apparent stenosis. . Reexamination/ Reevaluation Time: 11/26/2020 18:21:00 . Vital signs per nurse's notes Course: improving. Pain status: decreased. Assessment: exam improved. Impression and Plan Diagnosis Head ache - Discharge, Emergency medicine, Medical Plan Condition: Stable. Disposition: Discharged Admit/Transfer/Discharge: Discharge (Order): Start: 11/26/2020 18:21 EST, Discharge to: Home. Patient was given the following educational materials: General Headache Without Cause. Follow up with: [facility] Within 2 to 3 days; Follow up with primary care provider Within 1 to 2 days; Return to Emergency Department Within As needed Call for follow up appointment Follow-up as instructed Return if condition worsens. Counseled: Patient, Regarding diagnosis, Regarding diagnostic results, Regarding treatment plan, Regarding prescription, Patient indicated understanding of instructions. documented in this encounter Plan of Treatment Upcoming Encounters Date Type Department Care Team (Late st Contact Info) Description 03/10/2025 1:15 PM EDT Office Visit [facility] - [place] [address] [place] [address] Tabby Mcallister PA-Yuliana [address] [facility] [address] [place] [address] documented as of this encounter Visit Diagnoses Not on filedocumented in this encounter Care Teams Call Center Nurse Relationship Specialty Start Date End Date Stacy Moise PA PCP - General 03/02/23 documented as of this encounter
--- OUTSIDE RECORDS SUMMARY | 2024-09-30 17:11 | XMS_ITS | Encounter Summary ---
Author Organization [employer] Address [address] [place] [address] Care Team Providers Care Mold Stamper And Repairer Name Role Phone Stacy Moise Primary Care Provider [phone] Encounter Details Date Type Department Care Team (Late st Contact Info) Description 03/10/2020 Transcribed Document [facility] [place] Family [place] [facility] [place] [address] ProviderMireya MD [address] [place] [address] [id number] Social History Tobacco Use Types Packs/Day Years Used Date Smoking Tobacco: Never Assessed Sex and Gender Information Value Date Recorded Sex Assigned at Not on file Legal Sex Male 5:25 PM CDT Gender Identity Not on file Sexual Orientation Not on file documented as of this encounter Miscellaneous Notes * Cerner Conversion Note - Mireya ProviderMD - 03/10/2020 7:15 PM CDT Admission History, Adult Entered On: 03/11/2020 0:14 EDT Performed On: 03/10/2020 23:50 EDT by JOHNSON JACKMAN RN Advance Directive Patient has Advance Directive *Q : No, patient refuses Advance Directive information JOHNSON JACKMAN RN - 03/11/2020 0:03 EDT Anesthesia/Transfusion History Family History of Anesthesia Reaction : No prior transfusion(s) Transfusion History : Prior anesthesia without reaction Family History of Anesthesia Reaction : None JOHNSON JACKMAN RN - 03/11/2020 0:03 EDT Education Topics, Admission Orientation DCP GENERIC CODE Advance Directives : Verbalizes understanding Assessment/Vital Signs : Verbalizes understanding Bed Control : Verbalizes understanding Call Light : Verbalizes understanding Diet/Room Service : Verbalizes understanding Fall Prevention : Verbalizes understanding Orientation to Room/Bathroom : Verbalizes understanding Patient Safety : Verbalizes understanding Rounding : Verbalizes understanding Siderails use/risks : Verbalizes understanding Skin Precautions : Verbalizes understanding Smoking Policy : Verbalizes understanding Telemetry Monitoring : Verbalizes understanding Television/Phone : Verbalizes understanding JOHNSON JACKMAN RN - 03/11/2020 0:03 EDT Functional Assessment Living Situation : Home Patient Lives With : Spouse EASTMAN Hx Falls Immediate/Within 3 Months : No Current Home Treatments : None JOHNSON JACKMAN RN - 03/11/2020 0:03 EDT General Info Preferred Name : scottie Mode of Arrival on Unit : Ambulatory Legal Guardian : Spouse Support Person/Patient Alligator Hunter : Yes Support Person/Pt Rep Contact Information : tony el [phone] Want Family/Rep/Phys Notified of Admit : No Emergency Contact #1 : Tony Emergency Contact #1 Emergency Contact #1 Relationship : Emergency Contact #2 : none Emergency Contact #2 Phone Number : none Emergency Contact #2 Relationship : none Chief Complaint : Pt presents to the ER with numbness to the left side of his face that started around 1600 this afternoon. Also reports slight dizziness. A&Ox4. Ambulatory to triage. Denies HX of CVA or TIA Information Obtained From : Patient Primary Language : [place] Islander Preferred Communication Mode : Verbal Communication Barrier : None JOHNSON JACKMAN RN - 03/11/2020 0:03 EDT Fall Risk Scales ABCs Fall Injury Risk Identification : None EASTMAN Hx Falls Immediate/Within 3 Months : No Eastman Secondary Diagnosis : Yes EASTMAN Use of Ambulatory Aid : Bed rest/Nurse assist EASTMAN IV Therapy or IV Access : Yes Brenda Gait/Transferring : Normal, bedrest, immobile Eastman Mental Status : Oriented to own ability [place]man Fall Risk Score : 35 EASTMAN Fall Scale Risk Level : 25-45 Medium Risk [place] Fall Interventions : Adequate lighting, Assistive devices within reach, Bed in low position, Call device within reach, Hourly comfort/safety rounds, Non-slip footwear, Personal items within reach, Reinforced to call for assistance before getting out of bed, Room free of clutter/spills, Upper side-rails up, Wheels locked, Wires/Cords secured Fall Moderate to High Risk Interventions : Visual cues in place Fall Risk Scale Calc Temp : 0 JOHNSON JACKMAN RN - 03/11/2020 0:03 EDT Health Histories Smoking Status : Never (less than 100 in lifetime; none in last 30 days), 10 or more cigarettes (1/2 pack or more)/day in last 30 days Smokeless Tobacco Status : Never Desires Tobacco Cessation Medication : No Reason for No Tobacco Cessation Medication : Refuses FDA approved medications JOHNSON JACKMAN RN - 03/11/2020 0:03 EDT Social History (As Of: 03/11/2020 00:14:23 EDT) Tobacco: Smoking Status Current every day smoker. Years of Use: 55. Packs/Tins Daily: 1. (Last Updated: 11/18/2016 12:55:33 EST by LILIANA CAMILO RN) 10 or more cigarettes (1/2 pack or more)/day in last 30 days Smoking Status. Comments: 03/11/2020 0:13 - JOHNSON JACKMAN RN: Pt states he smokes 12 cigarettes per day (Last Updated: 03/11/2020 00:13:21 EDT by JOHNSON JACKMAN RN) Alcohol: Alcohol Use History Yes. Alcohol Use Frequency Rarely. (Last Updated: 11/18/2016 12:56:54 EST by LILIANA CAMILO RN) Substance Abuse: Drug Use Hx: No. Use in Last 12 Months: No. (Last Updated: 12/23/2018 11:55:19 EST by RENETTA TRAYLOR, MIKE) Home/Environment: Lives with Spouse. Living situation: Home/Independent. (Last Updated: 07/21/2014 22:40:52 EDT by SON DUMONT PA-C) Height and Weight, Clinical Dosing Height Source : Stated Height Entry Format : [place] Height, Feet : 5 ft(Converted to: 152 cm, 60 Inch) Height, Inches : 9 Inch(Converted to: 0 ft 9 Inch, 22.86 cm) Clinical Height : 175.26 cm Weight Source : Bed scale Weight Entry Format : [place] Clinical Dosing Weight : 77.27 kg Weight, Pounds : 170 lb Body Surface Area (BSA) : 1.93 m2 Body Mass Index : 25.2 kg/m2 (HI) [place] Body Weight : 70 kg JOHNSON JACKMAN RN - 03/11/2020 0:03 EDT Infectious Disease History Has the patient ever been tested for COVID-19? : No, Patient stated COVID19 Screening : No Experiencing Infectious Disease Symptoms : No symptoms Physical contact outside US in the last 30 days : No Infectious Disease History : Chicken pox/Shingles, Measles, Mumps, Pertussis (Whooping cough) Tuberculosis Symptoms : None JOHNSON JACKMAN RN - 03/11/2020 0:03 EDT Influenza Vaccine Asmt, Adult Previous Vaccines from Immunization Schedule : No qualifying data available. Influenza Immunization, Current Season : No Inactivated Flu Vaccine Contraindications : No contraindications to inactivated influenza vaccine Transplant Workup/Recent Transplant : No Order for Influenza Vaccine : Declined Vaccination JOHNSON JACKMAN RN - 03/11/2020 0:03 EDT Pneumococcal Vaccine Previous Vaccines from Immunization Schedule : No qualifying data available. Pneumonia Immunization Received : Yes JOHNSON JACKMAN RN - 03/11/2020 0:03 EDT Nutrition History Feeding Ability : Independent Adaptive Feeding Equipment : None Adaptive Feeding Equipment : Regular Eating Poorly Due to Decreased Appetite : No Unplanned Weight Loss in Past 3-6 Months : No Malnutrition Screening Tool Total(mal) : 0 Malnutrition Screening Tool Risk Level : Patient not at risk JOHNSON JACKMAN RN - 03/11/2020 0:03 EDT [place] Suicide Severity Rating Scale (C-SSRS) CSSRS Past Month Wish to be : No CSSRS Past Month Suicidal Thoughts : No CSSRS Lifetime Suicide Behavior : No Suicide Severity Rating Score : 0 Suicide Severity Rating : No Additional Care Required at this time JOHNSON JACKMAN RN - 03/11/2020 0:03 EDT Psychosocial History Do You Have a History of the Following? : Patient denies history Currently in Unsafe Situation : No JOHNSON JACKMAN RN - 03/11/2020 0:03 EDT Sleep Apnea Risk Assmt Hx of Obstructive Sleep Apnea Diagnosis : No Snore Loudly : No Tired, Fatigued, or Sleepy During Day : No Observed Stopping Breathing During Sleep : No Have/Are Being Treated for Hypertension : Yes BMI Greater Than 35 kg/m2 : No Age over 50 Years Old : Yes Neck Circumference Greater Than 40 cm : No Gender Male : Yes STOP-BANG Sleep Apnea Risk Level Score : 3 JOHNSON JACKMAN RN - 03/11/2020 0:03 EDT Valuables and Belongings Valuables and Belongings : Clothing Clothing : Common streetwear Clothing Disposition : With patient JOHNSON JACKMAN RN - 03/11/2020 0:03 EDT Electronically signed by [facility], [facility] Conversion Garnishment Specialist Cerner at 02/16/2023 4:01 PM CDT documented in this encounter Plan of Treatment Upcoming Encounters Date Type Department Care Team (Late st Contact Info) Description 03/10/2025 1:15 PM EDT Office Visit [facility] Cardiology - [place] [address] [place] [address] Tabby Mcallister PA-C 227 [facility] [address] [place] [address] documented as of this encounter Visit Diagnoses Not on filedocumented in this encounter Care Teams Mold Stamper And Repairer Relationship Specialty Start Date End Date Stacy Moise PA PCP - General 03/02/23 documented as of this encounter
--- OUTSIDE RECORDS SUMMARY | 2024-09-30 17:11 | XMS_ITS | Encounter Summary ---
Author Organization [employer] Address [address] [facility] [place] [address] Care Team Providers Care Air Breaker Operator Name Role Phone Stacy Moise Primary Care Provider [phone] Encounter Details Date Type Department Care Team (Late st Contact Info) Description 03/12/2020 Transcribed Document [facility] [place] [facility] [place] [address] ProviderMireya MD [address] [place] [address] [id number] Social History Tobacco Use Types Packs/Day Years Used Date Smoking Tobacco: Never Assessed Sex and Gender Information Value Date Recorded Sex Assigned at Not on file Legal Sex Male 5:25 PM CDT Gender Identity Not on file Sexual Orientation Not on file documented as of this encounter Miscellaneous Notes * Cerner Conversion Note - Historical ProviderMD - 03/12/2020 2:12 PM CDT Stroke/Warfarin Instructions Entered On: 03/12/2020 14:12 EDT Performed On: 03/12/2020 14:12 EDT by Alicia Portillo RN Stroke/Warfarin Instructions Stroke/TIA Discharge Ins : N/A Warfarin Discharge Ins : N/A Alicia Portillo RN - 03/12/2020 14:12 EDT documented in this encounter Plan of Treatment Upcoming Encounters Date Type Department Care Team (Late st Contact Info) Description 03/10/2025 1:15 PM EDT Office Visit [facility] Cardiology - [address] [address] Tabby Mcallister PA-C [address] [address] documented as of this encounter Visit Diagnoses Not on filedocumented in this encounter Care Teams Air Breaker Operator Relationship Specialty Start Date End Date Stacy Moise PA PCP - General 03/02/23 documented as of this encounter
--- OUTSIDE RECORDS SUMMARY | 2024-09-30 17:11 | XMS_ITS | Encounter Summary ---
Author Organization [employer] Address [address] [place] [id number] Care Team Providers Care Overhead Line Worker Name Role Phone Stacy Moise Primary Care Provider [phone] Encounter Details Date Type Department Care Team (Late st Contact Info) Description 03/12/2020 Transcribed Document [facility] [place] [facility] [place] [address] ProviderMireya MD [address] [place] [address] [phone] Social History Tobacco Use Types Packs/Day Years Used Date Smoking Tobacco: Never Assessed Sex and Gender Information Value Date Recorded Sex Assigned at Not on file Legal Sex Male 5:25 PM CDT Gender Identity Not on file Sexual Orientation Not on file documented as of this encounter Miscellaneous Notes * Cerner Conversion Note - Historical ProviderMD - 03/12/2020 2:00 AM CDT Security Delivery Specialist Details Entered On: 03/12/2020 5:01 EDT Performed On: 03/12/2020 2:00 EDT by Chris Davenport, RN Order Details Transport Mode Order Detail : Ambulatory Isolation Precautions Order Detail : Standard Precautions Order Detail : N/A IV Order Detail : 1 Oxygen Order Detail : 0 Nurse Collect Order Detail : 0 Lift/Transfer : Independent Central Line Order Detail : No Room Service : Appropriate Arterial Line : No Chris Davenport, RN - 03/12/2020 5:01 EDT documented in this encounter Plan of Treatment Upcoming Encounters Date Type Department Care Team (Late st Contact Info) Description 03/10/2025 1:15 PM EDT Office Visit [facility] Cardiology - [place] [address] [place] [address] Tabby Mcallister PA-Yuliana [address] [facility] [address] [place] [address] documented as of this encounter Visit Diagnoses Not on filedocumented in this encounter Care Teams Overhead Line Worker Relationship Specialty Start Date End Date Stacy Mosie PA PCP - General 03/02/23 documented as of this encounter
--- OUTSIDE RECORDS SUMMARY | 2024-09-30 17:11 | XMS_ITS | Encounter Summary ---
Author Organization [employer] Address [address] [place] [address] Care Team Providers Care Compilation Clerk Name Role Phone Stacy Moise Primary Care Provider [phone] Encounter Details Date Type Department Care Team (Late st Contact Info) Description 11/26/2020 Transcribed Document [facility] [place] [facility] [place] [address] ProviderMireya MD [address] [place] [address] [phone] Social History Tobacco Use Types Packs/Day Years Used Date Smoking Tobacco: Never Assessed Sex and Gender Information Value Date Recorded Sex Assigned at Not on file Legal Sex Male 5:25 PM CDT Gender Identity Not on file Sexual Orientation Not on file documented as of this encounter Miscellaneous Notes * Cerner Conversion Note - Mireya ProviderMD - 11/26/2020 12:21 PM BRIM RAISER ED Event Note Entered On: 11/26/2020 12:22 EST Performed On: 11/26/2020 12:21 EST by Etelvina Swartz CONCRETE BATCHER Event Note ED Event Date/Time : 11/26/2020 12:21 EST ED Description of Event : called to triage, pt in restroom Etelvina Swartz RN - 11/26/2020 12:22 EST Electronically signed by [facility] Conversion Recovery Operator [place] at 02/16/2023 3:51 PM CDT documented in this encounter Plan of Treatment Upcoming Encounters Date Type Department Care Team (Late st Contact Info) Description 03/10/2025 1:15 PM EDT Office Visit [facility] Cardiology - [address] [address] Tabby Mcallister PA-C [address] [place] [address] [place] [address] documented as of this encounter Visit Diagnoses Not on filedocumented in this encounter Care Teams Compilation Clerk Relationship Specialty Start Date End Date Stacy Moise PA PCP - General 03/02/23 documented as of this encounter
--- OUTSIDE RECORDS SUMMARY | 2024-09-30 17:11 | XMS_ITS | Encounter Summary ---
Author Organization [employer] Address [address] [facility] [address] Care Team Providers Care Waterfront Director Name Role Phone Stacy Moise Primary Care Provider [phone] Encounter Details Date Type Department Care Team (Late st Contact Info) Description 11/26/2020 Transcribed Document [facility] [place] [facility] [place] [address] ProviderMireya MD [address] [place] [id number] Social History Tobacco Use Types Packs/Day Years Used Date Smoking Tobacco: Never Assessed Sex and Gender Information Value Date Recorded Sex Assigned at Not on file Legal Sex Male 5:25 PM CDT Gender Identity Not on file Sexual Orientation Not on file documented as of this encounter Miscellaneous Notes * Cerner Conversion Note - Historical ProviderMD - 11/26/2020 12:28 PM CHILD CARE GIVER NIH Stroke Scale *Q Entered On: 11/26/2020 17:47 EST Performed On: 11/26/2020 17:43 EST by Elieser Lopez RN-RESOURCE NIH Stroke Scale *Q Time of Assessment : 11/26/2020 17:46 EST NIH Level of Consciousness (1A) : Alert NIH LOC Questions (1B) : Answers both questions correctly NIH LOC Commands (1C) : Performs both tasks correctly NIH Best Gaze (2) : Normal NIH Visual (3) : No visual loss NIH Facial Palsy (4) : Normal symmetrical movements NIH Motor Arm, Left (5A) : No drift NIH Motor Arm, Right (5B) : No drift NIH Motor Leg, Left (6A) : No drift NIH Motor Leg, Right (6B) : No drift NIH Limb Ataxia (7) : Absent NIH Sensory (8) : Normal NIH Best Language (9) : No aphasia NIH Dysarthria (10) : Normal Extinction and Inattention (11) : No abnormality NIH Scale Score : 0 Elieser Lopez, RN-RESOURCE - 11/26/2020 17:43 EST Electronically signed by [facility], [facility] Conversion Residential Sales Executive Cerner at 02/16/2023 4:00 PM CDT documented in this encounter Plan of Treatment Upcoming Encounters Date Type Department Care Team (Late st Contact Info) Description 03/10/2025 1:15 PM EDT Office Visit [facility] Cardiology - [place] [address] [place] [address] Tabby Mcallister PA-C [address] [address] documented as of this encounter Visit Diagnoses Not on filedocumented in this encounter Care Teams Waterfront Director Relationship Specialty Start Date End Date Stacy Moise PA PCP - General 03/02/23 documented as of this encounter
--- OUTSIDE RECORDS SUMMARY | 2024-09-30 17:11 | XMS_ITS | Encounter Summary ---
Author Organization [employer] Address [address] [place] [address] Care Team Providers Care Figure Refinisher And Repairer Name Role Phone Stacy Moise Primary Care Provider [phone] Encounter Details Date Type Department Care Team (Late st Contact Info) Description 11/26/2020 Transcribed Document [facility] [place] Family Medicine [facility] [address] ProviderMireya MD [address] [place] [phone] Social History Tobacco Use Types Packs/Day Years Used Date Smoking Tobacco: Never Assessed Sex and Gender Information Value Date Recorded Sex Assigned at Not on file Legal Sex Male 5:25 PM CDT Gender Identity Not on file Sexual Orientation Not on file documented as of this encounter Miscellaneous Notes * Cerner Conversion Note - Mireya ProviderMD - 11/26/2020 12:18 PM AIR BRAKE TESTER ED Assessment Entered On: 11/26/2020 17:45 EST Performed On: 11/26/2020 17:43 EST by Elieser Lopez RN-RESOURCE ED Quick Look Assessment Level of Consciousness : Alert, Awake Affect/Behavior : Appropriate, Cooperative Orientation : Oriented x 4 Skin Temperature : Warm Skin Description : Dry Elieser Lopez RN-MELONY - 11/26/2020 17:43 EST ED General-Functional Assess Preferred Communication Mode : Verbal Communication Barrier : None Primary Language : Burundian Any Spiritual/Cultural Needs or Requests : No Currently in Unsafe Situation : No Elieser Lopez RN-MELONY - 11/26/2020 17:43 EST Social Habits Smoking Status : 10 or more cigarettes (1/2 pack or more)/day in last 30 days Smokeless Tobacco Status : Never Desires Tobacco Cessation Medication : No Reason for No Tobacco Cessation Medication : Refuses FDA approved medications Desires Tobacco Cessation Calc : 1 Elieser Lopez RN-RESOURCE - 11/26/2020 17:43 EST Social History (As Of: 11/26/2020 17:45:02 EST) Tobacco: Smoking Status Current every day smoker. Years of Use: 55. Packs/Tins Daily: 1. (Last Updated: 11/18/2016 12:55:33 EST by LILIANA CAMIOL RN) 10 or more cigarettes (1/2 pack [...] 07/21/2014 22:40:52 EDT by SON DUMONT PA-C) Neurologic ASMT, ED Neurologic Assessment WDL : WDL with exceptions Neurological Symptoms : Dizziness, Headache, Numbness Level of Consciousness : Alert Affect/Behavior : Appropriate, Calm, Cooperative Speech : Clear Orientation : Oriented x 4 Pupils Equal, Round, Reactive to Light : Yes Pupil Description, Left : Regular Pupil Reaction, Left : Brisk Pupil Description, Right : Regular Pupil Reaction, Right : Brisk Elieser Lopez RN-RESOURCE - 11/26/2020 17:43 EST documented in this encounter Plan of Treatment Upcoming Encounters Date Type Department Care Team (Late st Contact Info) Description 03/10/2025 1:15 PM EDT Office Visit [facility] Cardiology - [place] [address] [place] [address] Tabby Mcallister PA-C [address] [facility] [facility] [place] [address] documented as of this encounter Visit Diagnoses Not on filedocumented in this encounter Care Teams Figure Refinisher And Repairer Relationship Specialty Start Date End Date Stacy Moise PA PCP - General 03/02/23 documented as of this encounter
--- OUTSIDE RECORDS SUMMARY | 2024-09-30 17:11 | XMS_ITS | Encounter Summary ---
Author Organization [employer] Address [address] [place] [address] Care Team Providers Care Organic Chemistry Professor Name Role Phone Stacy Moise Primary Care Provider [phone] Encounter Details Date Type Department Care Team (Late st Contact Info) Description 11/26/2020 Transcribed Document [facility] [place] [facility] [place] [address] ProviderMireya MD [address] [place] [phone] Social History Tobacco Use Types Packs/Day Years Used Date Smoking Tobacco: Never Assessed Sex and Gender Information Value Date Recorded Sex Assigned at Not on file Legal Sex Male 5:25 PM CDT Gender Identity Not on file Sexual Orientation Not on file documented as of this encounter Miscellaneous Notes * Cerner Conversion Note - Mireya ProviderMD - 11/26/2020 6:42 PM CASE MANAGEMENT MANAGER ED Discharge Entered On: 11/26/2020 18:43 EST Performed On: 11/26/2020 18:42 EST by Etelvina Swartz heeler Process Patient Disposition : Discharge Personal Belongings With Patient : Yes Patient Education Completed : Yes Teaching Evaluation : Verbalizes understanding IV Discontinued : Yes Nursing Documentation Completed : Yes Etelvina Swartz RN - 11/26/2020 18:42 EST ED Discharge Discharge To : Home with ambulatory/outpatient follow-up Mode Of Departure : Private vehicle Accompanied By : Unaccompanied Discharge Instructions Reviewed With, Opportunity For Questions Given : Patient Etelvina Swartz RN - 11/26/2020 18:42 EST documented in this encounter Plan of Treatment Upcoming Encounters Date Type Department Care Team (Late st Contact Info) Description 03/10/2025 1:15 PM EDT Office Visit [facility] Cardiology - [place] [address] [place] [address] Tabby Mcallister PA-Yuliana [address] [address] documented as of this encounter Visit Diagnoses Not on filedocumented in this encounter Care Teams Organic Chemistry Professor Relationship Specialty Start Date End Date Stacy Moise PA PCP - General 03/02/23 documented as of this encounter
--- OUTSIDE RECORDS SUMMARY | 2024-09-30 17:11 | XMS_ITS | Encounter Summary ---
Author Organization [employer] Address [address] [place] [address] Care Team Providers Care City Weighmaster Name Role Phone Stacy Moise Primary Care Provider [phone] Encounter Details Date Type Department Care Team (Late st Contact Info) Description 03/11/2020 Transcribed Document [facility] Family Medicine [facility] [place] [address] ProviderMireya MD [address] [place] [id number] Social History Tobacco Use Types Packs/Day Years Used Date Smoking Tobacco: Never Assessed Sex and Gender Information Value Date Recorded Sex Assigned at Not on file Legal Sex Male 5:25 PM CDT Gender Identity Not on file Sexual Orientation Not on file documented as of this encounter Miscellaneous Notes * Cerner Conversion Note - Historical ProviderMD - 03/11/2020 12:37 PM CDT Therapy Screen, PT Entered On: 03/11/2020 12:38 EDT Performed On: 03/11/2020 12:37 EDT by BIRDIE JENNINGS PT Therapy Screen, PT Medical Chart Reviewed : Yes Person Providing Information : Patient Screen Completed : Yes Recommendation for Evaluation, PT : None Recommendations Upon Discharge : None Additional Therapy Screen Comment : The patient is up and about his room independently. He reports that nearly all symptoms are resolved and he has no mobility problems. He denies the need for PT services. He was advised that if he changes his mind he can ask for a reorder. BIRDIE JENNINGS PT - 03/11/2020 12:37 EDT documented in this encounter Plan of Treatment Upcoming Encounters Date Type Department Care Team (Late st Contact Info) Description 03/10/2025 1:15 PM EDT Office Visit [facility] Cardiology - [place] [address] [place] [address] Tabby Mcallister PA-Yuliana [address] [facility] [address] [place] [address] documented as of this encounter Visit Diagnoses Not on filedocumented in this encounter Care Teams City Weighmaster Relationship Specialty Start Date End Date Stacy Moise PA PCP - General 03/02/23 documented as of this encounter
--- OUTSIDE RECORDS SUMMARY | 2024-09-30 17:11 | XMS_ITS | Encounter Summary ---
Author Organization [employer] Address [address] [place] [address] Care Team Providers Care Rn Plastics Name Role Phone Stacy Moise Primary Care Provider [phone] Encounter Details Date Type Department Care Team (Late st Contact Info) Description 03/12/2020 Transcribed Document [facility] Family Medicine [address] [place] [address] ProviderMireya MD [address] [place] [id number] Social History Tobacco Use Types Packs/Day Years Used Date Smoking Tobacco: Never Assessed Sex and Gender Information Value Date Recorded Sex Assigned at Not on file Legal Sex Male 5:25 PM CDT Gender Identity Not on file Sexual Orientation Not on file documented as of this encounter Miscellaneous Notes * Cerner Conversion Note - Mireya Osuna MD - 03/12/2020 2:14 PM CDT [facility] [place] [address] [facility] :1945 Visit Time:03/10/2020 Your Visit Summary Your Care Team Admitting Physician - MATT MCADAMS MD-INT PHY, UNKNOWN BIRDIE TELLEZ MD Attending Physician - MATT MCADAMS MD-INT BIRDIE TELLEZ MD Primary Care Physician - GER PATEL MD-[facility] Referring Physician - BIRDIE TELLEZ MD Your Diagnosis Brain TIA Dizziness Left facial numbness Paresthesia Paresthesia of skin, Paresthesia of skin Discharge Vitals Blood Pressure 149/78 What to do next Instructions From Your Care Team STOP taking your Crestor (rosuvastatin) - this has been replaced with Lipitor (atorvastatin) Discharge Follow Up Instructions: Follow-Up Appointments Follow Up with GER PATEL MD-[facility] When 03/19/2020 02:30 PM EDT Comments Appointment has been made; virtual visit Where: [address] [facility] [place] [place] [address]- Follow Up with MALGORZATA GUTIERREZ When 03/14/2020 11:00 AM EDT Comments hospital f/u for TIA Where: [address] [place] [address]- Business (1) Medications What How Much When Instructions Next Dose atorvastatin (Lipitor 20 mg oral tablet) 2 Tablet(s) Oral At Bedtime Pickup at [facility] 03/12/20 PM levothyroxine (Synthroid 25 mcg (0.025 mg) oral tablet) 0.5 Tablet(s) Oral Every Day Pickup at [facility] 03/13/20 AM amLODIPine (Norvasc 10 mg oral tablet) 1 Tablet(s) Oral Every Day 03/13/20 AM aspirin (Aspir 81) 81 Milligram(s) Oral Every Day 03/13/20 AM cetirizine (ZyrTEC) 10 Milligram(s) Oral Every Day as needed for as needed for allergy symptoms clopidogrel (Plavix 75 mg oral tablet) 1 Tablet(s) Oral Every Day Pickup at [facility] 03/13/20 AM cyanocobalamin (Vitamin B12) 1,000 Microgram(s) Oral Every Day 03/13/20 AM esomeprazole (NexIUM 24HR 20 mg oral delayed release capsule) Oral Every Day 03/13/20 AM finasteride (Proscar) 5 Milligram(s) Oral Every Day 03/13/20 AM fluticasone nasal (Flonase) 2 [place](s) Nasal Every Other Day as needed for Allergies furosemide (furosemide 20 mg oral tablet) 1 Tablet(s) Oral Every Day 03/13/20 AM gemfibrozil (Lopid 600 mg oral tablet) 1 Tablet(s) Oral Two Times A Day 03/12/20 PM isosorbide mononitrate 30 Milligram(s) Oral Every Morning 03/13/20 AM nebivolol (Bystolic 10 mg oral tablet) 1 Tablet(s) Oral Every Day 03/13/20 AM nitroglycerin (Nitrostat 0.4 mg sublingual tablet) 1 Tablet(s) SubLINgual Every 5 minutes as needed for Chest Pain potassium chloride (potassium chloride 20 mEq oral tablet, extended release) Oral Two Times A Day 03/12/20 PM psyllium (Konsyl) Oral Every Other Day Pharmacy Information [facility]: [address] [place] [address] [address] [phone] Take your medications faithfully. Do NOT skip [...] Allergies Immunizations This Visit No Immunizations Found Stroke/TIA Instructions Individualized Stroke Risk Factors Individualized Stroke Risk Factors *Q: Coronary artery disease, High cholesterol, Hypertension/High blood pressure, Peripheral vascular disease, Smoking Education Materials Diabetes Mellitus and Nutrition, Adult When you [...] that you work with a diet and nutritional chemist (dietitian) to make a meal plan that [...] of beer, 5 oz of wine, or 1?? oz of hard liquor. ??? Do not [...] can eat at each meal. ??? Eat 4???6 ounces (oz) of lean protein each day, such as lean meat, chicken, fish, eggs, or tofu. One oz of lean protein is equal to: ? 1 oz of meat, chicken, or fish. ? 1 egg. ? ?? cup of tofu. ??? Eat some foods [...] provider. ??? Work with a counselor or clinical nurse educator to identify strategies to manage stress and any emotional and social challenges. Questions to ask a health care provider ??? Do I need to meet with a clinical nurse educator? Do I need to meet with a dietitian? What number can I call if I have questions? When are the best times to check my blood glucose? Where to find more information: ??? [place] [employer]: diabetes.org ??? Academy of Nutrition and Dietetics: www.eatright.org ??? National [place] of Diabetes and Digestive and Kidney Diseases (NIH): www.niddk.nih.gov Summary ??? A healthy meal plan will help you control your blood glucose and maintain a healthy lifestyle. ??? Working with a diet and nutritional chemist (dietitian) can help you make a meal [...] 07/16/2006 Document Revised: 05/19/2018 Document Reviewed: 11/23/2017 [employer] Patient Education ?? 2019 [employer]. Type 2 Diabetes Mellitus, Diagnosis, Adult Type [...] blood sugar levels: ??? Before meals (preprandial): 80???130 mg/dL (4.4???7.2 mmol/L). ??? After meals (postprandial): below 180 mg/dL (10 mmol/L). ??? A1c (hemoglobin A1c) level: less than 7%. Follow these instructions at home: Questions to ask your doctor ??? You may want to ask these questions: ? Do I need to meet with a clinical nurse educator? ? Where can I find a support [...] next doctor's visit? General instructions ??? Take qhpm-qyt-llvyyux and prescription medicines only as told by [...] to insulin that it makes. ??? Take dgnl-hia-gvwrbgm and prescription medicines only as told by your doctor. ??? Keep all follow-up visits as told by your doctor. This is important. This information is not intended to replace advice given to you by your health care provider. Make sure you discuss any questions you have with your health care provider. Document Released: 07/28/2009 Document Revised: 05/20/2018 Document Reviewed: 11/21/2016 [employer] Patient Education ?? 2019 [employer]. Hypothyroidism Hypothyroidism is when the thyroid gland [...] Follow these instructions at home: ??? Take xcze-lvf-djuodhk and prescription medicines only as told by [...] 10/19/2006 Document Revised: 09/29/2018 Document Reviewed: 09/29/2018 [employer] Patient Education ?? 2019 [employer]. atorvastatin (a TOR va sta tin) Lipitor What is the most important information I should know about atorvastatin? You should not take atorvastatin if you are or breast-feeding, or if you have liver disease. Stop taking this medication and tell your doctor right away if you become . Tell your doctor about all your current medicines and any you start or stop using. Many drugs can interact, and some drugs should not be used together. Atorvastatin can cause the breakdown of muscle tissue, which can lead to kidney failure. Call your doctor right away if you have unexplained muscle pain, tenderness, or weakness especially if you also have fever, unusual tiredness, or dark urine. What is atorvastatin? Atorvastatin is used together with diet to lower blood levels of 'bad' cholesterol (low-density lipoprotein, or LDL), to increase levels of 'good' cholesterol (high-density lipoprotein, or HDL), and to lower triglycerides (a type of fat in the blood). Atorvastatin is used to treat high cholesterol, and to lower the risk of stroke, heart attack, or other heart complications in people with type 2 diabetes, coronary heart disease, or other risk factors. Atorvastatin is used in adults and children who are at least 10 years old. Atorvastatin may also be used for purposes not listed in this medication guide. What should I discuss with my healthcare provider before taking atorvastatin? You should not use atorvastatin if you are allergic to it, or if you have: ?? liver disease; or ?? if you are or breast-feeding. This medicine can harm an unborn baby or cause defects. Do not use if you are . Stop taking atorvastatin and tell your doctor right away if you become Use effective control to prevent while you are taking this medicine. Do not breast-feed while you are taking atorvastatin. Tell your doctor if you have ever had: ?? liver problems; ?? muscle pain or weakness; ?? kidney disease; ?? diabetes; ?? a thyroid disorder; or ?? if you drink more than 2 alcoholic beverages daily. Atorvastatin can cause the breakdown of muscle tissue, which can lead to kidney failure. This happens more often in women, in older adults, or people who have kidney disease or poorly controlled hypothyroidism (underactive thyroid). Atorvastatin is not approved for use by anyone younger than 10 years old. How should I take atorvastatin? Follow all directions on your prescription label and read all medication guides or instruction sheets. Your doctor may occasionally change your dose. Use the medicine exactly as directed. Take the medicine at the same time each day, with or without food. Do not break an atorvastatin tablet before taking it. You may need to stop using atorvastatin for a short time if you have: ?? uncontrolled seizures; ?? an electrolyte imbalance (such as high or low potassium levels in your blood); ?? severely low blood pressure; ?? a severe infection or illness; or ?? surgery or a medical emergency. It may take up to 2 weeks before your cholesterol levels improve, and you may need frequent blood tests. Even if you have no symptoms, tests can help your doctor determine if this medicine is effective. Atorvastatin is only part of a complete treatment program that may also include diet, exercise, and weight control. Follow your doctor's instructions very closely. Store at room temperature away from moisture, heat, and light. What happens if I miss a dose? Use the medicine as soon as you can, but skip the missed dose if you are more than 12 hours late for the dose. Do not use two doses at one time. What happens if I overdose? Seek emergency medical attention or call the Poison Help line at . What should I avoid while taking atorvastatin? Avoid eating foods high in fat or cholesterol, or atorvastatin will not be as effective. Avoid drinking alcohol. It can raise triglyceride levels and may increase your risk of liver damage. Grapefruit may interact with atorvastatin and lead to unwanted side effects. Avoid drinking more than 1 liter of grapefruit juice while taking atorvastatin. What are the possible side effects of atorvastatin? Get emergency medical help if you have signs of an allergic reaction: hives; difficulty breathing; swelling of your face, lips, tongue, or throat. In rare cases, atorvastatin can cause a condition that results in the breakdown of skeletal muscle tissue, leading to kidney failure. Call your doctor right away if you have unexplained muscle pain, tenderness, or weakness especially if you also have fever, unusual tiredness, and dark colored urine. Also call your doctor at once if you have: ?? pain or burning when you urinate; ?? liver problems--upper stomach pain, weakness, tired feeling, loss of appetite, dark urine, jaundice (yellowing of the skin or eyes); or ?? kidney problems--little or no urinating, swelling in your feet or ankles, feeling tired or short of breath. Common side effects may include: ?? joint pain; ?? stuffy nose, sore throat; ?? diarrhea; or ?? pain in your arms or legs. This is not a complete list of side effects and others may occur. Call your doctor for medical advice about side effects. You may report side effects to FDA at 5-264-PZP-9598. What other drugs will affect atorvastatin? Certain other drugs can increase your risk of serious muscle problems, and it is very important that your doctor knows if you are using any of them. Tell your doctor about all your current medicines and any you start or stop using, especially: ?? antibiotic or antifungal medicine; ?? control pills; ?? other cholesterol-lowering medication; ?? heart medication; or ?? medicine to treat HIV or AIDS. This list is not complete. Other drugs may affect atorvastatin, including prescription and rbqx-ydp-blefvna medicines, vitamins, and herbal products. Not all possible drug interactions are listed here. Where can I get more information? Your pharmacist can provide more information about atorvastatin. Remember, keep this and all other medicines out of the reach of children, never share your medicines with others, and use this medication only for the indication prescribed. Every effort has been made to ensure that the information provided by [employer]') is accurate, up-to-date, and complete, but no guarantee is made to that effect. Drug information contained herein may be time sensitive. [employer] information has been compiled for use by healthcare practitioners and consumers in the [place] and therefore [employer] does not warrant that uses outside of the [place] are appropriate, unless specifically indicated otherwise. [employer] drug information does not endorse drugs, diagnose patients or recommend therapy. [employer] drug information is an informational resource designed to assist licensed healthcare practitioners in caring for their patients and/or to serve consumers viewing this service as a supplement to, and not a substitute for, the expertise, skill, knowledge and judgment of healthcare practitioners. The absence of a warning for a given drug or drug combination in no way should be construed to indicate that the drug or drug combination is safe, effective or appropriate for any given patient. [employer] does not assume any responsibility for any aspect of healthcare administered with the aid of information [employer] provides. The information contained herein is not intended to cover all possible uses, directions, precautions, warnings, drug interactions, allergic reactions, or adverse effects. If you have questions about the drugs you are taking, check with your doctor, nurse or pharmacist. Copyright 5885-3629 [employer]. Version: 20.02. Revision Date: 07/29/2019. levothyroxine (oral/injection) (SOCORRO durbin TIERNEY een) Levoxyl, Synthroid, Tirosint, Unithroid What is the most important information I should know about levothyroxine? You may not be able to take levothyroxine if you have certain medical conditions. Tell your doctor if you have an untreated or uncontrolled adrenal gland disorder, a thyroid disorder called thyrotoxicosis, or if you have any recent or current symptoms of a heart attack. Levothyroxine should not be used to treat obesity or weight problems. What is levothyroxine? Levothyroxine is used to treat hypothyroidism (low thyroid hormone). Levothyroxine is given when your thyroid does not produce enough of this hormone on its own. Levothyroxine is also used to treat or prevent goiter (enlarged thyroid gland), which can be caused by hormone imbalances, radiation treatment, surgery, or cancer. There are many brands and forms of levothyroxine available. Not all brands are listed on this leaflet. Levothyroxine may also be used for purposes not listed in this medication guide. What should I discuss with my healthcare provider before taking levothyroxine? Levothyroxine should not be used to treat obesity or weight problems. Dangerous side effects or can occur from the misuse of levothyroxine, especially if you are taking any other weight-loss medications or appetite suppressants. Since thyroid hormone occurs naturally in the body, almost anyone can take levothyroxine. However, you may not be able to take this medicine if you have certain medical conditions. Tell your doctor if you have: ?? an untreated or uncontrolled adrenal gland disorder; ?? a thyroid disorder called thyrotoxicosis; or ?? symptoms of a heart attack (chest pain or heavy feeling, pain spreading to the jaw or shoulder, nausea, sweating, general ill feeling). Tell your doctor if you have ever had: ?? a thyroid nodule; ?? heart disease, a blood clot, or a blood-clotting disorder; ?? diabetes (insulin or oral diabetes medication doses may need to be changed when you start taking levothyroxine); ?? kidney disease; ?? anemia (lack of red blood cells); ?? osteoporosis, or low bone mineral density; ?? problems with your pituitary gland; or ?? any food or drug allergies. Tell your doctor if you have recently received radiation therapy with iodine (such as I-131). If you become while taking levothyroxine, do not stop taking the medicine without your doctor's advice. Having low thyroid hormone levels during could harm both mother and baby. Your dose needs may be different during . Tell your doctor if you are breast-feeding. Your dose needs may be different while you are nursing. Do not give this medicine to a child without medical advice. Tirosint is not approved for use by anyone younger than 6 years old. How should I take levothyroxine? Follow all directions on your prescription label and read all medication guides or instruction sheets. Your doctor may occasionally change your dose. Use the medicine exactly as directed. Levothyroxine oral is taken by mouth. Levothyroxine injection is given as an infusion into a vein. Levothyroxine is usually given by injection only if you are unable to take the medicine by mouth. Levothyroxine oral works best if you take it on an empty stomach, 30 to 60 minutes before breakfast. Follow your doctor's dosing instructions and try to take the medicine at the same time each day. Swallow the tablet or capsule whole, with a full glass (8 ounces) of water. The levothyroxine tablet may dissolve very quickly and could swell in your throat. Measure liquid medicine carefully. Use the dosing syringe provided, or use a medicine dose-measuring device (not a kitchen spoon). Levothyroxine doses are based on weight in children. Your child's dose needs may change if the child gains or loses weight. It may take several weeks before your body starts to respond to levothyroxine. Keep using this medicine even if you feel well. You may need to use levothyroxine for the rest of your life. You may need frequent medical tests. Tell any doctor, dentist, or surgeon who treats you that you are using levothyroxine. Store at room temperature away from moisture and heat. Do not share this medicine with another person, even if they have the same symptoms you have. What happens if I miss a dose? Take the medicine as soon as you can, but skip the missed dose if it is almost time for your next dose. Do not take two doses at one time. What happens if I overdose? Seek emergency medical attention or call the Poison Help line at . Overdose symptoms may include headache, leg cramps, tremors, feeling nervous or irritable, chest pain, shortness of breath, and fast or pounding heartbeats. What should I avoid while taking levothyroxine? Avoid the following food products, which can make your body absorb less levothyroxine: grapefruit juice, infant soy formula, soybean flour, cotton seed meal, walnuts, and high-fiber foods. What are the possible side effects of levothyroxine? Get emergency medical help if you have signs of an allergic reaction: hives; difficult breathing; swelling of your face, lips, tongue, or throat. Call your doctor at once if you have: ?? fast or irregular heartbeats; ?? chest pain, shortness of breath; ?? fever, hot flashes, sweating; ?? tremors, or if you feel unusually cold; ?? weakness, tiredness, sleep problems (insomnia); ?? memory problems, feeling depressed or irritable; ?? headache, leg cramps, muscle aches; ?? feeling nervous or irritable; ?? dryness of your skin or hair, hair loss; ?? changes in your menstrual periods; or ?? vomiting, diarrhea, appetite changes, weight changes. Certain side effects may be more likely in older adults. Common side effects may include: ?? muscle weakness; ?? headache, leg cramps; ?? nervousness, trouble sleeping; ?? diarrhea; or ?? skin rash, partial hair loss. This is not a complete list of side effects and others may occur. Call your doctor for medical advice about side effects. You may report side effects to FDA at 4-116-TDS-1776. What other drugs will affect levothyroxine? Many other medicines can be affected by your thyroid hormone levels. Certain other medicines may also increase or decrease the effects of levothyroxine. Certain medicines can make levothyroxine less effective if taken at the same time. If you use any of the following drugs, avoid taking them within 4 hours before or 4 hours after you take levothyroxine: ?? calcium carbonate (Heike-Mints, Caltrate, Os-Ian, Oyster Shell Calcium, Rolaids Soft Chew, Tums, and others); ?? cholestyramine, colesevelam, colestipol; ?? ferrous sulfate iron supplement; ?? sucralfate; ?? sodium polystyrene sulfonate (Kalexate, Kayexalate, Kionex); ?? stomach acid reducers--esomeprazole, lansoprazole, omeprazole, rabeprazole, Nexium, Prilosec, Prevacid, Protonix, Zegerid, and others; or ?? antacids that contain aluminum or magnesium--Gaviscon, Maalox, Milk of Magnesia, Mintox, Mylanta, Pepcid Complete, and others. Many drugs can affect levothyroxine. This includes prescription and tbgs-xrr-vslhmok medicines, vitamins, and herbal products. Not all possible interactions are listed here. Tell your doctor about all your current medicines and any medicine you start or stop using. Where can I get more information? Your doctor or pharmacist can provide more information about levothyroxine. Remember, keep this and all other medicines out of the reach of children, never share your medicines with others, and use this medication only for the indication prescribed. Every effort has been made to ensure that the information provided by [employer]') is accurate, up-to-date, and complete, but no guarantee is made to that effect. Drug information contained herein may be time sensitive. [employer] information has been compiled for use by healthcare practitioners and consumers in the [place] and therefore [employer] does not warrant that uses outside of the [place] are appropriate, unless specifically indicated otherwise. [employer] drug information does not endorse drugs, diagnose patients or recommend therapy. [employer] drug information is an informational resource designed to assist licensed healthcare practitioners in caring for their patients and/or to serve consumers viewing this service as a supplement to, and not a substitute for, the expertise, skill, knowledge and judgment of healthcare practitioners. The absence of a warning for a given drug or drug combination in no way should be construed to indicate that the drug or drug combination is safe, effective or appropriate for any given patient. [employer] does not assume any responsibility for any aspect of healthcare administered with the aid of information [employer] provides. The information contained herein is not intended to cover all possible uses, directions, precautions, warnings, drug interactions, allergic reactions, or adverse effects. If you have questions about the drugs you are taking, check with your doctor, nurse or pharmacist. Copyright 9914-4345 [employer]. Version: 13.04. Revision Date: 06/01/2019. clopidogrel (kloe PID oh grel) Plavix What is the most important information I should know about clopidogrel? You should not use this medicine if you have any active bleeding such as a stomach ulcer or bleeding in the brain. Clopidogrel increases your risk of bleeding, which can be severe or life-threatening. Call your doctor or seek emergency medical attention if you have bleeding that will not stop, if you have blood in your urine, black or bloody stools, or if you cough up blood or vomit that looks like coffee grounds. Do not stop taking clopidogrel without first talking to your doctor, even if you have signs of bleeding. Stopping clopidogrel may increase your risk of a heart attack or stroke. What is clopidogrel? Clopidogrel is used to lower your risk of having a stroke, blood clot, or serious heart problem after you've had a heart attack, severe chest pain (angina), or circulation problems. Clopidogrel may also be used for purposes not listed in this medication guide. What should I discuss with my healthcare provider before taking clopidogrel? You should not use clopidogrel if you are allergic to it, or if you have: ?? any active bleeding; or ?? a stomach ulcer or bleeding in the brain (such as from a head injury). Tell your doctor if you have ever had: ?? an ulcer in your stomach or intestines; or ?? a bleeding disorder or blood clotting disorder. Clopidogrel may not work as well if you have certain genetic factors that affect the breakdown of this medicine in your body. Your doctor may perform a blood test to make sure clopidogrel is right for you. This medicine is not expected to harm an unborn baby. However, taking clopidogrel within 1 week before childbirth can cause bleeding in the mother. Tell your doctor if you are or plan to become . You should not breastfeed while using this medicine. How should I take clopidogrel? Follow all directions on your prescription label and read all medication guides or instruction sheets. Use these medicines exactly as directed. Clopidogrel can be taken with or without food. Clopidogrel is sometimes taken together with aspirin. Take aspirin only if your doctor tells you to. Clopidogrel keeps your blood from coagulating (clotting) and can make it easier for you to bleed, even from a minor injury. Contact your doctor or seek emergency medical attention if you have any bleeding that will not stop. You may need to stop using clopidogrel for a short time before a surgery, medical procedure, or dental work. Any healthcare provider who treats you should know that you are taking clopidogrel. Do not stop taking clopidogrel without first talking to your doctor, even if you have signs of bleeding. Stopping the medicine could increase your risk of a heart attack or stroke. Store at room temperature away from moisture and heat. What happens if I miss a dose? Take the medicine as soon as you can, but skip the missed dose if it is almost time for your next dose. Do not take two doses at one time. What happens if I overdose? Seek emergency medical attention or call the Poison Help line at . Overdose can cause excessive bleeding. What should I avoid while taking clopidogrel? Avoid alcohol. It can increase your risk of stomach bleeding. Avoid activities that may increase your risk of bleeding or injury. Use extra care to prevent bleeding while shaving or brushing your teeth. If you also take aspirin: Ask a doctor or pharmacist before using medicines for pain, fever, swelling, or cold/flu symptoms. They may contain ingredients similar to aspirin (such as salicylates, ibuprofen, ketoprofen, or naproxen). Taking these products together can increase your risk of bleeding. What are the possible side effects of clopidogrel? Get emergency medical help if you have signs of an allergic reaction: hives; difficult breathing; swelling of your face, lips, tongue, or throat. Clopidogrel increases your risk of bleeding, which can be severe or life-threatening. Call your doctor or seek emergency medical attention if you have bleeding that will not stop, if you have blood in your urine, black or bloody stools, or if you cough up blood or vomit that looks like coffee grounds. Also call your doctor at once if you have: ?? nosebleeds, pale skin, easy bruising, purple spots under your skin or in your mouth; ?? jaundice (yellowing of your skin or eyes); ?? fast heartbeats, shortness of breath; ?? headache, fever, weakness, feeling tired; ?? little or no urination; ?? a seizure; ?? low blood sugar--headache, hunger, sweating, irritability, dizziness, fast heart rate, and feeling anxious or shaky; or ?? signs of a blood clot--sudden numbness or weakness, confusion, problems with vision or speech. Common side effects may include: ?? bleeding. This is not a complete list of side effects and others may occur. Call your doctor for medical advice about side effects. You may report side effects to FDA at 6-066-OHJ-9147. What other drugs will affect clopidogrel? Certain other medicines may increase your risk of bleeding, including aspirin. Avoid taking aspirin unless your doctor tells you to. Tell your doctor about all your other medicines, especially: ?? any other medicines to treat or prevent blood clots; ?? a stomach acid orthopedic physician such as omeprazole, Nexium, or Prilosec; ?? an antidepressant; ?? an opioid medication; ?? a blood thinner--warfarin, Coumadin, Jantoven; or ?? NSAIDs (nonsteroidal anti-inflammatory drugs)--ibuprofen (Advil, Motrin), naproxen (Aleve), celecoxib, diclofenac, indomethacin, meloxicam, and others. This list is not complete. Other drugs may affect clopidogrel, including prescription and apsa-wck-vxxqyeg medicines, vitamins, and herbal products. Not all possible drug interactions are listed here. Where can I get more information? Your pharmacist can provide more information about clopidogrel. Remember, keep this and all other medicines out of the reach of children, never share your medicines with others, and use this medication only for the indication prescribed. Every effort has been made to ensure that the information provided by [employer] ('[employer]') is accurate, up-to-date, and complete, but no guarantee is made to that effect. Drug information contained herein may be time sensitive. [employer] information has been compiled for use by healthcare practitioners and consumers in the [place] and therefore [employer] does not warrant that uses outside of the [place] are appropriate, unless specifically indicated otherwise. [employer] drug information does not endorse drugs, diagnose patients or recommend therapy. [employer] drug information is an informational resource designed to assist licensed healthcare practitioners in caring for their patients and/or to serve consumers viewing this service as a supplement to, and not a substitute for, the expertise, skill, knowledge and judgment of healthcare practitioners. The absence of a warning for a given drug or drug combination in no way should be construed to indicate that the drug or drug combination is safe, effective or appropriate for any given patient. [employer] does not assume any responsibility for any aspect of healthcare administered with the aid of information [employer] provides. The information contained herein is not intended to cover all possible uses, directions, precautions, warnings, drug interactions, allergic reactions, or adverse effects. If you have questions about the drugs you are taking, check with your doctor, nurse or pharmacist. Copyright 8345-4044 [employer]. Version: 17.. Revision Date: 11/24/2019. Emergency Awareness and Preventative Care STROKE is an EMERGENCY Every Minute Counts Act FAST and Check for these signs: FACE Does the face look uneven? ARM Does one arm drift down? SPEECH Does their speech sound strange? TIME Call 07-03- at any sign of stroke Stroke Risk [...] Assistance with quitting is available by contacting 9-358-DGTLNOW. This is a free resource providing counseling, support, and referral. Or you may contact your personal physician. [employer] Suicide Prevention Lifeline: The National Suicide Prevention [...] This Visit (last charted value for your 03/10/2020 visit) Hematology 03/12/2020 6:59 AM WBC: 8.5 K/uL -- Normal range between ( 3.6 and 9.5 ) RBC: 4.49 Million/uL -- Normal range between ( 4.20 and 5.70 ) Hct: 39.9 % -- Normal range between ( 40.1 and 51.0 ) Hgb: 13.9 g/dL -- Normal range between ( 13.5 and 17.3 ) Platelet Count: 299 K/uL -- Normal range between ( 163 and 369 ) MCH: 31.0 pg -- Normal range between ( 25.6 and 32.2 ) MCHC: 34.8 Gram/dL -- Normal range between ( 32.2 and 36.5 ) MCV: 88.9 fL -- Normal range between ( 79.0 and 94.8 ) Slide Review: No Eos %: 2.6 % -- Normal range between ( 0.0 and 7.0 ) Wolfe #: 1.12 K/uL -- Normal range between ( 0.16 and 1.00 ) Eos #: 0.22 x10(3)/uL -- Normal range between ( 0.00 and 0.80 ) Wolfe %: 13.1 % -- Normal range between ( 3.0 and 9.0 ) Baso %: 0.2 % -- Normal range between ( 0.0 and 1.5 ) Baso #: 0.02 x10(3)/uL -- Normal range between ( 0.00 and 0.20 ) RDW: 12.6 % -- Normal range between ( 11.7 and 14.9 ) Neut %: 51.5 % -- Normal range between ( 34.0 and 71.0 ) Neut #: 4.38 K/uL -- Normal range between ( 1.56 and 6.13 ) Lymph %: 32.0 % -- Normal range between ( 19.3 and 53.1 ) Lymph #: 2.73 x10(3)/uL -- Normal range between ( 1.00 and 3.90 ) MPV: 9.8 fL -- Normal range between ( 9.4 and 12.4 ) IG#: 0.05 x10(3)/uL -- Normal range between ( 0.00 and 0.05 ) IG%: 0.60 % -- Normal range between ( 0.00 and 0.60 ) Urinalysis 03/11/2020 7:30 AM Urine Nitrite: Negative Urine Leukocyte Esterase: Negative Urine Appearance: Clear Urine Glucose Dipstick: Negative Urine Blood Dipstick: Negative Urine Urobilinogen Dipstick: 1.0 EU/dL Urine Protein Dipstick: Negative Ur Bacteria: Trace Urine Color: Yellow Urine Ketones Dipstick: Negative Urine pH Dipstick: 7.0 -- Normal range between ( 6.0 and 8.0 ) Urine Bilirubin Dipstick: Negative Urine Specific [place]: 1.017 -- Normal range between ( 1.005 and 1.030 ) Urine Type.: [facility] General Chemistry 03/12/2020 6:59 AM Creatinine Level: 0.90 mg/dL -- Normal range between ( 0.70 and 1.30 ) Sodium Level: 137 mmol/L -- Normal range between ( 136 and 146 ) Potassium Level: 3.3 mmol/L -- Normal range between ( 3.5 and 5.1 ) Chloride Level: 108 mmol/L -- Normal range between ( 102 and 112 ) Carbon Dioxide Level: 25 mmol/L -- Normal range between ( 21 and 32 ) Anion Gap: 7 -- Normal range between ( 9 and 20 ) Bun/Creatinine: 23.3 -- Normal range between ( 8.0 and 20.0 ) Calcium Level: 9.0 mg/dL -- Normal range between ( 8.4 and 10.1 ) eGFR : >60 mL/min/1.73m2 eGFR NonAfrican: >60 mL/min/1.73m2 Glucose Level: 113 mg/dL -- Normal range between ( 74 and 106 ) Blood Urea Nitrogen: 21 mg/dL -- Normal range between ( 7 and 22 ) 03/11/2020 0:27 AM Hgb A1C: 6.8 % eAVG Glucose: 148 mg/dL 03/11/2020 0:16 AM Calcium Ionized: 1.18 mmol/L -- Normal range between ( 1.12 and 1.32 ) CRP: <0.3 mg/dL -- Normal range between ( 0.0 and 0.9 ) 03/10/2020 7:12 PM Glucose POC2: 133 mg/dL -- Normal range between ( 70 and 110 ) Device Comment 1: Device Comment 1 03/10/2020 6:36 PM Bilirubin Total: 0.3 mg/dL -- Normal range between ( 0.2 and 1.2 ) A/G Ratio: 1.0 -- Normal range between ( 1.1 and 2.5 ) ALT: 29 Units/Liter -- Normal range between ( 16 and 61 ) AST: 16 Units/Liter -- Normal range between ( 5 and 37 ) Globulin: 3.9 Gram/dL -- Normal range between ( 1.5 and 4.5 ) Alk Phos: 127 Units/Liter -- Normal range between ( 27 and 136 ) Bilirubin Direct: <0.1 mg/dL -- Normal range between ( 0.0 and 0.2 ) Protein Total: 7.8 Gram/dL -- Normal range between ( 6.4 and 8.2 ) Albumin Level: 3.9 Gram/dL -- Normal range between ( 3.4 and 5.0 ) Cardiac Specific Markers 03/10/2020 6:36 PM Troponin I Ultra: <0.015 ng/mL -- Normal range between ( 0.015 and 0.045 ) Coagulation 03/10/2020 6:36 PM Fibrinogen Level: 333 mg/dL -- Normal range between ( 220 and 420 ) INR: 1.0 -- Normal range between ( 0.9 and 1.1 ) PTT: 29.7 Second(s) -- Normal range between ( 24.0 and 34.0 ) PT: 10.7 Second(s) -- Normal range between ( 9.6 and 12.0 ) Lipid Studies 03/11/2020 0:27 AM Cholesterol Tot: 137 mg/dL -- Normal range between ( 0 and 199 ) Cholesterol HDL: 25.0 mg/dL Cholesterol LDL Calculation: 49.0 mg/dL -- Normal range between ( 0.0 and 99.0 ) Cholesterol VLDL Calculation: 63.0 mg/dL -- Normal range between ( 5.0 and 40.0 ) Cholesterol/HDL Ratio: 5.5 -- Normal range between ( 0.0 and 3.2 ) Triglyceride: 315 mg/dL -- Normal range between ( 0 and 249 ) LDL/HDL Ratio: 2.0 -- Normal range between ( 0.0 and 3.6 ) Endocrinology 03/11/2020 0:27 AM TSH: 5.700 mcInt Units/mL -- Normal range between ( 0.358 and 3.740 ) Toxicology 03/10/2020 6:36 PM %Alcohol: <.00 Alcohol: <3 mg/dL Vitamin Chemistry 03/11/2020 0:27 AM Vitamin B12 Level: 609 pg/mL -- Normal range between ( 193 and 986 ) Computed Tomography 03/10/2020 7:[address] Brain Perfusion: CT Brain Perfusion CTA Head Code Stroke: CTA Head Code Stroke CTA Neck Code Stroke: CTA Neck Code Stroke 03/10/2020 6:[address] Head WO Code Stroke: CT Head WO Code Stroke Diagnostic Radiology 03/10/2020 7:18 PM CR Chest 1 Vw Portable: CR Chest 1 Vw Portable Magnetic Resonance Imaging 03/11/2020 3:49 PM MRI Brain WO: MRI Brain WO Echo 03/12/2020 8:33 AM EC Echo Complete: EC Echo Complete Vascular Ultrasound 03/12/2020 8:14 AM VL Carotid Duplex BILAT: VL Carotid Duplex BILAT Patient Name:SCOTTIE CURRAN I have received and understand this information and was given the opportunity to ask questions. Patient/Topstitcher Zigzag Name: Patient/Topstitcher Zigzag Signature: Relationship to Patient: Clinician/Hospital Topstitcher Zigzag Signature: Date: Electronically signed by Katie Pizarro Conversion Candle Extrusion Machine Operator Cerner at 02/16/2023 4:11 PM CDT documented in this encounter Plan of Treatment Upcoming Encounters Date Type Department Care Team (Late st Contact Info) Description 03/10/2025 1:15 PM EDT Office Visit [facility] Cardiology - [place] [address] [place] [address] Tabby Mcallister PA-C [address] [facility] [address] [place] [address] documented as of this encounter Visit Diagnoses Not on filedocumented in this encounter Care Teams Rn Plastics Relationship Specialty Start Date End Date Stacy Moise PA PCP - General 03/02/23 documented as of this encounter
--- OUTSIDE RECORDS SUMMARY | 2024-09-30 17:11 | XMS_ITS | Encounter Summary ---
Author Organization [employer] Address [address] [facility] [place] [address] Care Team Providers Care Fishing Game Warden Name Role Phone Stacy Moise Primary Care Provider [phone] Encounter Details Date Type Department Care Team (Late st Contact Info) Description 03/10/2020 Transcribed Document [facility] [place] [address] ProviderMireya MD [address] [place] [address] [phone] Social History Tobacco Use Types Packs/Day Years Used Date Smoking Tobacco: Never Assessed Sex and Gender Information Value Date Recorded Sex Assigned at Not on file Legal Sex Male 5:25 PM CDT Gender Identity Not on file Sexual Orientation Not on file documented as of this encounter Miscellaneous Notes * Cerner Conversion Note - Mireya ProviderMD - 03/10/2020 11:46 PM CDT ED Event Note Entered On: 03/10/2020 23:46 EDT Performed On: 03/10/2020 23:46 EDT by ANA KAHN RN ED Event Note ED Event Date/Time : 03/10/2020 23:46 EDT ED Description of Event : handoff report to MIKE Cheema. pt ready to be transported to floor. ANA KAHN RN - 03/10/2020 23:46 EDT documented in this encounter Plan of Treatment Upcoming Encounters Date Type Department Care Team (Late st Contact Info) Description 03/10/2025 1:15 PM EDT Office Visit [facility] Cardiology - [address] [place] [address] Tabby Mcallister PA-C [address] [facility] [address] [place] [address] documented as of this encounter Visit Diagnoses Not on filedocumented in this encounter Care Teams Fishing Game Warden Relationship Specialty Start Date End Date Stacy Moise PA PCP - General 03/02/23 documented as of this encounter
--- OUTSIDE RECORDS SUMMARY | 2024-09-30 17:11 | XMS_ITS | Encounter Summary ---
Author Organization [employer] Address [address] [facility] [place] [address] Care Team Providers Care Commercial Illustrator Name Role Phone Stacy Moise Primary Care Provider [phone] Encounter Details Date Type Department Care Team (Late st Contact Info) Description 03/11/2020 Transcribed Document [facility] [place] [facility] [place] [address] ProviderMireya MD [address] [place] [phone] Social History Tobacco Use Types Packs/Day Years Used Date Smoking Tobacco: Never Assessed Sex and Gender Information Value Date Recorded Sex Assigned at Not on file Legal Sex Male 5:25 PM CDT Gender Identity Not on file Sexual Orientation Not on file documented as of this encounter Miscellaneous Notes * Cerner Conversion Note - Mireya Osuna MD - 03/11/2020 10:54 AM CDT Patient: SCOTTIE CURRAN Age: 74 years Sex: Male : 1945 Associated Diagnoses: None Author: VIRI DAVID MD-KOFI Impression and Plan Neurology consult note dictated; patient with TIA symptoms of facial numbness on left and unsteady gait which have resolved. He has been off Plavix after GI bleed last Fall; no further bleeding since that time and he did have cauterization of areas in his stomach at that time. I have recommended to restart Plavix and continue aspirin- patient is agreeable to this. MRI brain and echo are pending at this time (CTA head/neck unremarkable); if these tests are unremarkable he would be fine for discharge home at any time. He states he will f/u with Dr Jd Brown as an outpatient. documented in this encounter Plan of Treatment Upcoming Encounters Date Type Department Care Team (Late st Contact Info) Description 03/10/2025 1:15 PM EDT Office Visit [facility] Cardiology - [place] [address] [place] [address] Tabby Mcallister PA-C [address] [facility] [address] [place] [address] documented as of this encounter Visit Diagnoses Not on filedocumented in this encounter Care Teams Commercial Illustrator Relationship Specialty Start Date End Date Stacy Moise PA PCP - General 03/02/23 documented as of this encounter
--- OUTSIDE RECORDS SUMMARY | 2024-09-30 17:11 | XMS_ITS | Encounter Summary ---
Author Organization [employer] Address [address] [place] [id number] Care Team Providers Care Client Integration Manager Name Role Phone Stacy Moise Primary Care Provider [phone] Encounter Details Date Type Department Care Team (Late st Contact Info) Description 03/10/2020 Transcribed Document [facility] [place] [facility] [place] [address] ProviderMireya MD [address] [place] [address] [phone] Social History Tobacco Use Types Packs/Day Years Used Date Smoking Tobacco: Never Assessed Sex and Gender Information Value Date Recorded Sex Assigned at Not on file Legal Sex Male 5:25 PM CDT Gender Identity Not on file Sexual Orientation Not on file documented as of this encounter Miscellaneous Notes * Cerner Conversion Note - Historical ProviderMD - 03/10/2020 11:17 PM CDT Nuisance Wildlife Specialist Details Entered On: 03/11/2020 0:14 EDT Performed On: 03/10/2020 23:17 EDT by JOHNSON JACKMAN RN Order Details Transport Mode Order Detail : Ambulatory Isolation Precautions Order Detail : Standard Precautions Order Detail : N/A IV Order Detail : 1 Oxygen Order Detail : 0 Nurse Collect Order Detail : 0 Lift/Transfer : Independent Central Line Order Detail : No Room Service : Appropriate Arterial Line : No JOHNSON JACKMAN RN - 03/11/2020 0:14 EDT Electronically signed by Juarez Cox [place] Conversion Supervisor Transcribing Operators Cerner at 02/16/2023 4:12 PM CDT documented in this encounter Plan of Treatment Upcoming Encounters Date Type Department Care Team (Late st Contact Info) Description 03/10/2025 1:15 PM EDT Office Visit [facility] Cardiology - [place] [address] [place] [address] Tabby Mcallister PA-Yuliana [address] [facility] [address] [place] [address] documented as of this encounter Visit Diagnoses Not on filedocumented in this encounter Care Teams Client Integration Manager Relationship Specialty Start Date End Date Stacy Moise PA PCP - General 03/02/23 documented as of this encounter
--- OUTSIDE RECORDS SUMMARY | 2024-09-30 17:11 | XMS_ITS | Encounter Summary ---
Author Organization [employer] Address [address] [place] [address] Care Team Providers Care Knurling Machine Operator Name Role Phone Stacy Moise Primary Care Provider [phone] Encounter Details Date Type Department Care Team (Late st Contact Info) Description 03/11/2020 Transcribed Document [facility] Radiology [address] [place] [address] Girish Sanchez MD [address] [place] [address] [address] [place] [address] Social History Tobacco Use Types Packs/Day Years Used Date Smoking Tobacco: Never Assessed Sex and Gender Information Value Date Recorded Sex Assigned at Not on file Legal Sex Male 5:25 PM CDT Gender Identity Not on file Sexual Orientation Not on file documented as of this encounter Miscellaneous Notes * Cerner Conversion Note - Girish Sanchez MD - 03/11/2020 10:57 AM EDT Patient: SCOTTIE CURRAN Age: 74 years Sex: Male : 1945 Associated Diagnoses: None Author: GIRISH SANCHEZ MD-INT Subjective PCP: Dr. May, [facility] DOA: 03/10/2020 DOD: HPI: Admitted from ER of [facility] with hypertensive urgency and left sided numbness with speech difficulties. Patient recently underwent left heart catheterization by [facility] cardiology. Working diagnosis was TIA. Multiple other medical problems noted. CODE STATUS: Full code CONSULTS: [facility] neurology WORKUP / PROCEDURES: HOSPITAL FOLLOWUP: 03/11/2020 Patient seen and examined today. Chart and H&P reviewed. Workup noted. Medications reviewed. Patient is resting in bed, he denies any dizziness, did complain of some weakness but numbness have resolved. No chest pain, no dyspnea. He's afebrile. Health Status Allergies: Allergic Reactions (Selected) No Known Medication Allergies Current medications: (Selected) Inpatient Medications Ordered Bystolic: 10 mg, Oral, Daily Colace: 100 mg, Oral, BID, PRN: Constipation Lipitor: 20 mg, Oral, At Bedtime Lopid: 600 mg, Oral, BID MiraLax: 17 Gram, Oral, Daily, PRN: Constipation Normal Saline Flush: 10 mL, IV Push, See Comment, PRN: IV Use Norvasc: 10 mg, Oral, Daily Proscar: 5 mg, Oral, Daily Protonix: 40 mg, Oral, Daily Tylenol: 650 mg, Oral, Q4H, PRN: Pain (Mild 1-3) Vitamin B12: 1,000 mcg, Oral, Daily Zofran: 4 mg, IV Push, Q4H, PRN: Nausea aspirin: 81 mg, Oral, Daily heparin: 5,000 Units, SubCutaneous, [id number] hydrALAZINE: 5 mg, IV Push, Q4H, PRN: Hypertension isosorbide mononitrate: 30 mg, Oral, QAM morphine: 2 mg, IV Push, Q2H, PRN: Pain (Severe 7-10) nicotine 21 mg/24 hr transdermal film, extended release: 1 Patch, TransDermal, Daily Documented Medications Documented Aspir 81: 81 mg, Oral, Daily, 0 Refill(s) Bystolic 10 mg oral tablet: 1 Tab, Oral, Daily, 0 Refill(s) Crestor 10 mg oral tablet: 1 Tab, Oral, EveryOtherDay, 0 Refill(s) Flonase: 2 [place], Nasal, EveryOtherDay, PRN: Allergies, 0 Refill(s) Konsyl: [...] Tab, Oral, BID, 0 Refill(s), Home Medications (15) Active Aspir 81 81 mg, Oral, Daily Bystolic 10 mg oral tablet 10 mg = 1 Tab, Oral, Daily Crestor 10 mg oral tablet 10 mg = 1 Tab, Oral, EveryOtherDay Flonase 2 [place], PRN, Nasal, EveryOtherDay furosemide 20 mg oral tablet 20 mg = 1 Tab, Oral, Daily isosorbide mononitrate 30 mg, Oral, QAM Konsyl , Oral, EveryOtherDay Lopid 600 mg oral tablet 600 mg = 1 Tab, Oral, BID NexIUM 24HR 20 mg oral delayed release capsule , Oral, Daily Nitrostat 0.4 mg sublingual tablet 0.4 mg = 1 Tab, PRN, SubLINgual, Q5Min Norvasc 10 mg oral tablet 10 mg = 1 Tab, Oral, Daily potassium chloride 20 mEq oral tablet, extended release , Oral, BID Proscar 5 mg, Oral, Daily Vitamin B12 1,000 mcg, Oral, Daily ZyrTEC 10 mg, PRN, Oral, Daily Problem list: Active Problems (25) Anemia (hx [...] Prediabetes Prostatitis///12/2018 Renal calculus///HX Stented coronary artery Objective VS/Measurements Vitals Signs (last 24 hrs) Last Charted Minimum Maximum Temp 97.9 (MARCH 11:29) 97.9 (MARCH 11:29) 98.2 (MARCH 10 18:38) Apical HR L 56 (MARCH 10 23:24) L 56 (MARCH 10 23:24) 62 (MARCH 10 19:08) Mon HR 70 (MARCH 11:29) 58 (MARCH 10 20:36) 70 (MARCH 10 23:18) Resp Rate 18 (MARCH 11:) L 13 (MARCH 10 19:59) 19 (MARCH 10 22:48) SBP 136 (MARCH 11:) 136 (MARCH 11:29) H 193 (MARCH 10:08) DBP 82 (MARCH 11:29) 72 (MARCH 10 23:35) H 96 (MARCH 11 03:20) MAP 115 (MARCH 11:29) 106 (MARCH 10 23:35) 158 (MARCH 10 22:48) SpO2 96 (MARCH 11:20) 96 (MARCH 10 21:34) 99 (MARCH 10 19:15) General: Alert and oriented, No acute distress. Eye: Pupils are equal, round and reactive to light, Extraocular movements are intact, Normal conjunctiva. HENT: Normocephalic, Oral mucosa is moist. Neck: Supple, Non-tender, No carotid bruit, No jugular venous distention. Respiratory: Lungs are clear to auscultation, Respirations are non-labored, Breath sounds are equal. Cardiovascular: Normal rate, Regular rhythm. Gastrointestinal: Soft, Non-tender, Normal bowel sounds. Musculoskeletal: Normal range of motion. Integumentary: Warm. Neurologic: Alert, Oriented, Normal motor function, No focal deficits. Psychiatric: Cooperative. Results Review Radiology Results (Last 48 hours) [id number] -- 03/10/2020 19:01 CT Head WO Code Stroke (03/10/2020 18:40) Result: HEAD CTHISTORY: Dizziness and left side facial numbness. Recent symptom onset.Code stroke.TECHNIQUE: Multiple axial CT images were performed from [...] hemorrhage. No significantsinus or osseous abnormality seen.IMPRESSION: Unremarkable.Dr. Smalls was called and notified of these findings prior to dictation. CT Brain Perfusion (03/10/2020 19:05) Result: HEAD CT WITH AND WITHOUT SCANHISTORY: Facial numbness and dizziness.COMPARISON: None.TECHNIQUE: Multiple axial CT sections were performed from the foramenmagnum to the vertex pre and post contrast injection. The post contrastimages were performed utilizing 2 separate boluses and extensivepostprocessing was performed to provide maps of regional blood flow andvolume according to the perfusion protocol.FINDINGS: The noncontrast examination again shows no significantabnormality. Perfusion images are within normal limits.IMPRESSION: Unremarkable.CT NECK ANGIO, WITHOUT AND WITH CONTRASTHISTORY: As aboveTECHNIQUE: Thin-section axial CT with IV contrast supplemented withmultiplanar reconstruction. This study was performed with techniques tokeep radiation doses as low as reasonably achievable, (ALARA).Individualized dose reduction techniques using automated exposurecontrol or adjustment of mA and/or kV according to the patient size wereemployed.COMPARISON: None.FINDINGS:Aortic arch: There is mild to moderate dilation of the distal portionof the arch and the proximal descending aorta. There is no stenosis ofthe great vessel origins..Right carotid: The common carotid artery is normal. There is a mild,less than 50%, stenosis of the proximal ICA. The remainder of thecarotid arteries are unremarkable.Left carotid: Unremarkable.Vertebrals: Unremarkable.IMPRESSION: No significant stenosis.CTA HEADHISTORY: As aboveTECHNIQUE: Thin-section axial CT with contrast with multiplanarreconstruction. This study was performed with techniques to keepradiation doses as low as reasonably achievable, (ALARA). Individualizeddose reduction techniques using automated exposure control or adjustmentof mA and/or kV according to the patient size were employed.FINDINGS: Other than mild calcification, the intracranial portions ofthe internal carotid arteries are normal bilaterally. The anterior andmiddle cerebral arteries show no significant abnormality. Theintracranial vertebral arteries, the basilar artery and their majorbranches are also within normal limits.IMPRESSION: No significant abnormality.Dr. Roberts was called and notified of these findings at the time ofdictation. CTA Head Code Stroke (03/10/2020 19:05) Result: HEAD CT WITH AND WITHOUT SCANHISTORY: Facial numbness and dizziness.COMPARISON: None.TECHNIQUE: Multiple axial CT sections were performed from the foramenmagnum to the vertex pre and post contrast injection. The post contrastimages were performed utilizing 2 separate boluses and extensivepostprocessing was performed to provide maps of regional blood flow andvolume according to the perfusion protocol.FINDINGS: The noncontrast examination again shows no significantabnormality. Perfusion images are within normal limits.IMPRESSION: Unremarkable.CT NECK ANGIO, WITHOUT AND WITH CONTRASTHISTORY: As aboveTECHNIQUE: Thin-section axial CT with IV contrast supplemented withmultiplanar reconstruction. This study was performed with techniques tokeep radiation doses as low as reasonably achievable, (ALARA).Individualized dose reduction techniques using automated exposurecontrol or adjustment of mA and/or kV according to the patient size wereemployed.COMPARISON: None.FINDINGS:Aortic arch: There is mild to moderate dilation of the distal portionof the arch and the proximal descending aorta. There is no stenosis ofthe great vessel origins..Right carotid: The common carotid artery is normal. There is a mild,less than 50%, stenosis of the proximal ICA. The remainder of thecarotid arteries are unremarkable.Left carotid: Unremarkable.Vertebrals: Unremarkable.IMPRESSION: No significant stenosis.CTA HEADHISTORY: As aboveTECHNIQUE: Thin-section axial CT with contrast with multiplanarreconstruction. This study was performed with techniques to keepradiation doses as low as reasonably achievable, (ALARA). Individualizeddose reduction techniques using automated exposure control or adjustmentof mA and/or kV according to the patient size were employed.FINDINGS: Other than mild calcification, the intracranial portions ofthe internal carotid arteries are normal bilaterally. The anterior andmiddle cerebral arteries show no significant abnormality. Theintracranial vertebral arteries, the basilar artery and their majorbranches are also within normal limits.IMPRESSION: No significant abnormality.Dr. Roberts was called and notified of these findings at the time ofdictation. CTA Neck Code Stroke (03/10/2020 19:05) Result: HEAD CT WITH AND WITHOUT SCANHISTORY: Facial numbness and dizziness.COMPARISON: None.TECHNIQUE: Multiple axial CT sections were performed from the foramenmagnum to the vertex pre and post contrast injection. The post contrastimages were performed utilizing 2 separate boluses and extensivepostprocessing was performed to provide maps of regional blood flow andvolume according to the perfusion protocol.FINDINGS: The noncontrast examination again shows no significantabnormality. Perfusion images are within normal limits.IMPRESSION: Unremarkable.CT NECK ANGIO, WITHOUT AND WITH CONTRASTHISTORY: As aboveTECHNIQUE: Thin-section axial CT with IV contrast supplemented withmultiplanar reconstruction. This study was performed with techniques tokeep radiation doses as low as reasonably achievable, (ALARA).Individualized dose reduction techniques using automated exposurecontrol or adjustment of mA and/or kV according to the patient size wereemployed.COMPARISON: None.FINDINGS:Aortic arch: There is mild to moderate dilation of the distal portionof the arch and the proximal descending aorta. There is no stenosis ofthe great vessel origins..Right carotid: The common carotid artery is normal. There is a mild,less than 50%, stenosis of the proximal ICA. The remainder of thecarotid arteries are unremarkable.Left carotid: Unremarkable.Vertebrals: Unremarkable.IMPRESSION: No significant stenosis.CTA HEADHISTORY: As aboveTECHNIQUE: Thin-section axial CT with contrast with multiplanarreconstruction. This study was performed with techniques to keepradiation doses as low as reasonably achievable, (ALARA). Individualizeddose reduction techniques using automated exposure control or adjustmentof mA and/or kV according to the patient size were employed.FINDINGS: Other than mild calcification, the intracranial portions ofthe internal carotid arteries are normal bilaterally. The anterior andmiddle cerebral arteries show no significant abnormality. Theintracranial vertebral arteries, the basilar artery and their majorbranches are also within normal limits.IMPRESSION: No significant abnormality.Dr. Roberts was called and notified of these findings at the time ofdictation. MARCH 11 00:27 139 108 14 / H 114 3.5 24 0.80 \ MARCH 11 00:27 \ 15.7 / H 14.1 369 / 45.0 \ Impression and Plan Assessment and Plan: Diagnosis. DIAGNOSIS: Acute onset of left sided numbness and tingling speech difficulties. Possible TIA versus other causes. Workup on going Hypertensive urgency, present on admission continue to monitor and adjust medications as needed Hyperglycemia, present on admission with no Hx of diabetes. Check hemoglobin A1c Leukocytosis, with no obvious focus of infection. UA was negative and we will check the chest x-ray Coronary artery disease with recent left heart catheterization, monitor troponin and make sure its normal not trending up Elevated TSH, likely new diagnosis of hypothyroid Peripheral arterial disease and left lower extremity stent placement Essential hypertension, continue current medications and follow closely Hyperlipidemia with elevated triglycerides History of cervical disc disease and disc fusion surgery BPH On going tobacco use, needs counseling PLAN Stroke workup initiated and continued to follow Neurology input requested Monitor blood pressure and adjust medications as needed Start low dose of Synthroid Check hemoglobin A1c and Continue statin Will check the chest x-ray Follow labs and electrolytes Discussed with the patient Plan is to continue monitor today follow-up workup and if remained stable, hopefully can be discharged tomorrow documented in this encounter Plan of Treatment Upcoming Encounters Date Type Department Care Team (Late st Contact Info) Description 03/10/2025 1:15 PM EDT Office Visit [facility] Cardiology - [place] [address] [place] [address] Tabby Mcallister PA-C [address] [facility] [address] [place] [address] documented as of this encounter Visit Diagnoses Not on filedocumented in this encounter Care Teams Knurling Machine Operator Relationship Specialty Start Date End Date Stacy Moise PA PCP - General 03/02/23 documented as of this encounter
--- OUTSIDE RECORDS SUMMARY | 2024-09-30 17:11 | XMS_ITS | Encounter Summary ---
Author Organization [employer] Address [address] [place] [address] Care Team Providers Care Territory Service Representative Name Role Phone Stacy Moise Primary Care Provider [phone] Encounter Details Date Type Department Care Team (Late st Contact Info) Description 03/10/2020 Transcribed Document [facility] Family [place] [address] ProviderMireya MD [address] [place] [address] Social History Tobacco Use Types Packs/Day Years Used Date Smoking Tobacco: Never Assessed Sex and Gender Information Value Date Recorded Sex Assigned at Not on file Legal Sex Male 5:25 PM CDT Gender Identity Not on file Sexual Orientation Not on file documented as of this encounter Miscellaneous Notes * Cerner Conversion Note - Mireya ProviderMD - 03/10/2020 7:44 PM CDT Consult Phone Call Documentation Entered On: 03/11/2020 8:56 EDT Performed On: 03/10/2020 19:44 EDT by Nat Rockwell, [facility] Coord Phone Call for Consults Consult Phone Call/Page Attempt : First call Consult Reason : left facial numbness Physician Requested for Consult : VIRI DAVID MD-NEU Physician Covering for Consult : VIRI DAVID MD-NEU Date and Time Call Returned : 03/11/2020 8:56 EDT Consult, Additional Information : spoke to Nat Cam, [facility] Coord - 03/11/2020 8:56 EDT Electronically signed by [facility] Conversion Warehouse Puller Cerner at 02/16/2023 4:02 PM CDT documented in this encounter Plan of Treatment Upcoming Encounters Date Type Department Care Team (Late st Contact Info) Description 03/10/2025 1:15 PM EDT Office Visit [facility] Cardiology - [place] [address] [place] [address] Tabby Mcallister PA-Yuliana [address] [address] documented as of this encounter Visit Diagnoses Not on filedocumented in this encounter Care Teams Territory Service Representative Relationship Specialty Start Date End Date Stacy Moise PA PCP - General 03/02/23 documented as of this encounter
--- OUTSIDE RECORDS SUMMARY | 2024-09-30 17:11 | XMS_ITS | Encounter Summary ---
Author Organization [employer] Address [address] [place] [address] Care Team Providers Care Coronary Clinical Specialist Name Role Phone Stacy Moise Primary Care Provider [phone] Encounter Details Date Type Department Care Team (Late st Contact Info) Description 03/12/2020 Transcribed Document [facility] Family Medicine [facility] [place] [address] ProviderMireya MD [address] [place] [id number] Social History Tobacco Use Types Packs/Day Years Used Date Smoking Tobacco: Never Assessed Sex and Gender Information Value Date Recorded Sex Assigned at Not on file Legal Sex Male 5:25 PM CDT Gender Identity Not on file Sexual Orientation Not on file documented as of this encounter Miscellaneous Notes * Cerner Conversion Note - Mireya Osuna MD - 03/12/2020 1:26 PM CDT Final Discharge Planning Entered On: 03/12/2020 13:27 EDT Performed On: 03/12/2020 13:26 EDT by FLAKO POLLACK RN-Team Driver Final Discharge Planning Discharge Arrangements : Patient Post-Acute Information Patient Name: SCOTTIE CURRAN Gender: Male : [birth year] Age: 74 Years No Post-Acute Placement(s) Listed No Post-Acute Service(s) Listed No [place] Referral(s) Listed Patient Offered Choice/Affiliations Explained : No Transportation Needs : Family/Friend Follow Up Appointment Scheduled : Yes Is Patient High/Moderate Readmission Risk? : No Patient/Family Notified of Plan : Yes Patient/Family Notified : Patient Is Patient Ready for Discharge? : Yes Physician Notified Patient is Ready for Discharge? : Yes Discharge To Care Management : Home/Residential/Skilled Nursing or Self Care -01 FLAKO POLLACK, RN-Team Driver - 03/12/2020 13:26 EDT Electronically signed by [facility] Conversion Laundry Aid Cerner at 02/16/2023 3:46 PM CDT documented in this encounter Plan of Treatment Upcoming Encounters Date Type Department Care Team (Late st Contact Info) Description 03/10/2025 1:15 PM EDT Office Visit [facility] Cardiology - [place] [address] [place] [address] Tabby Mcallister PA-Yuliana [address] [address] documented as of this encounter Visit Diagnoses Not on filedocumented in this encounter Care Teams Coronary Clinical Specialist Relationship Specialty Start Date End Date Stacy Moise PA PCP - General 03/02/23 documented as of this encounter
--- OUTSIDE RECORDS SUMMARY | 2024-09-30 17:11 | XMS_ITS | Encounter Summary ---
Author Organization [employer] Address [address] [facility] [address] Care Team Providers Care Cvicu Rn Name Role Phone Stacy Moise Primary Care Provider [phone] Encounter Details Date Type Department Care Team (Late st Contact Info) Description 03/12/2020 Transcribed Document [facility] Radiology 1 [place] [address] Girish Sanchez MD [address] [place] [address] [address] [place] [address] Social History Tobacco Use Types Packs/Day Years Used Date Smoking Tobacco: Never Assessed Sex and Gender Information Value Date Recorded Sex Assigned at Not on file Legal Sex Male 5:25 PM CDT Gender Identity Not on file Sexual Orientation Not on file documented as of this encounter Miscellaneous Notes * Cerner Conversion Note - Girish Sanchez MD - 03/12/2020 11:03 AM EDT Patient: SCOTTIE CURRAN Age: 74 years Sex: Male : 1945 Associated Diagnoses: None Author: GIRISH SANCHEZ MD-INT Subjective PCP: Dr. May, [facility] DOA: 03/10/2020 DOD: 03/12/2020 HPI: Admitted from ER of [facility] with hypertensive urgency and left sided numbness with speech difficulties. Patient recently underwent left heart catheterization by [facility] cardiology. Working diagnosis was TIA. Multiple other medical problems noted. CODE STATUS: Full code CONSULTS: [facility] neurology WORKUP / PROCEDURES: ECHO REPORT - TRANSTHORACIC ECHOCARDIOGRAPHY REPORT Interpreting NILAM PENA MD Physician: Date of Service: 03/12/2020 Impression: Normal sized left ventricle. Mild left ventricular hypertrophy. Visually estimated ejection fraction 65% +/- 5%. Abnormal systolic strain pattern. Normal left ventricular diastolic function. Agitated saline injection performed. Negative for bubble study. Sclerotic aortic valve leaflets. No masses or thrombi are seen. VASCULAR REPORT - Vascular Carotid Procedure Interpreting NILAM PENA MD Physician BILATERAL: < 20% stenosis of the prox ICA. No evidence of subclavian steal. Normal antegrade vertebral flow. HOSPITAL FOLLOWUP: 03/11/2020 Patient seen and examined today. Chart and H&P reviewed. Workup noted. Medications reviewed. Patient is resting in bed, he denies any dizziness, did complain of some weakness but numbness have resolved. No chest pain, no dyspnea. He's afebrile. 03/12/2020 Patient is resting in bed, comfortable. Workup negative. He is anxious to go home. No new Neurological symptoms. Carotid Doppler and echo report is still pending. Cleared by neurology for discharge. Health Status Allergies: Allergic Reactions (Selected) No Known Medication Allergies Current medications: (Selected) Inpatient Medications Ordered Bystolic: 10 mg, Oral, Daily Colace: 100 mg, Oral, BID, PRN: Constipation Lipitor: 20 mg, Oral, At Bedtime Lopid: 600 mg, Oral, BID MiraLax: 17 Gram, Oral, Daily, PRN: Constipation Normal Saline Flush: 10 mL, IV Push, See Comment, PRN: IV Use Norvasc: 10 mg, Oral, Daily Plavix: 75 mg, Oral, Daily Proscar: 5 mg, Oral, Daily Protonix: 40 mg, Oral, Daily Synthroid: 12.5 mcg, Oral, Daily Tylenol: 650 mg, Oral, Q4H, PRN: Pain (Mild 1-3) Vitamin B12: 1,000 mcg, Oral, Daily Zofran: 4 mg, IV Push, Q4H, PRN: Nausea aspirin: 81 mg, Oral, Daily heparin: 5,000 Units, SubCutaneous, [id number] hydrALAZINE: 5 mg, IV Push, Q4H, PRN: [...] Tab, Oral, EveryOtherDay, 0 Refill(s) Flonase: 2 Tillson, Nasal, EveryOtherDay, PRN: Allergies, 0 Refill(s) Konsyl: [...] = 1 Tab, Oral, EveryOtherDay Flonase 2 Tillson, PRN, Nasal, EveryOtherDay furosemide 20 mg oral [...] Last Charted Minimum Maximum Temp 97.9 (MARCH 12 06:00) 97.9 (MARCH 12:00) 98.4 (MARCH 12:04) Apical HR 66 (MARCH 12 05:53) 66 (MARCH 12 05:53) 70 (MARCH 11:21) Mon HR 65 (MARCH 12 06:00) 52 (MARCH 11:15) 65 (MARCH 12 06:00) Resp Rate 18 (MARCH 12:00) 16 (MARCH 12:04) 18 (MARCH 11:00) SBP H 149 (MARCH 12:) H 149 (MARCH 12:) H 182 (MARCH 11:57) DBP 78 (MARCH 12:) 78 (MARCH 12:) 89 (MARCH 11:15) MAP 114 (MARCH 12:) 109 (MARCH 11:57) 137 (MARCH 11:15) SpO2 96 (MARCH 12 06:00) 96 (MARCH 12 04:04) 97 (MARCH 11:57) General: Alert and oriented, No acute distress. [...] Results Review Radiology Results (Last 48 hours) [id number] -- 03/10/2020 19:01 CT Head WO Code [...] of these findings at the time ofdictation. CR Chest 1 Vw Portable (03/10/2020 19:18) Result: Single view chestINDICATION: Stroke like symptomsFINDINGS:The lungs are clear. The mediastinum and cardiac silhouette areunremarkable.IMPRESSION: No acute abnormality Images reviewed, interpreted, and dictated by Zaid Angel MD. MRI Brain WO (03/11/2020 15:49) Result: MRI of the brain without contrastINDICATION: Loss of balanceTECHNIQUE: Multiplanar multisequence noncontrast MRI imaging of thebrain was performed. FINDINGS:There is no evidence of intracranial hemorrhage, focal mass lesion, oracute ischemia.The ventricles are midline and symmetric.No suspicious parenchymal abnormalities are identified.The expected intracranial flow voids are present.IMPRESSION: Normal MRI of the brain.Images reviewed, interpreted, and dictated by Zaid Angel MD. MARCH 12 06:59 137 108 21 / H 113 L 3.3 25 0.90 \ MARCH 12 06:59 \ 13.9 / 8.5 299 / L 39.9 \ Impression and Plan Assessment and Plan: Diagnosis. DIAGNOSIS at discharge: Hypokalemia, replaced Acute onset of left sided numbness and tingling speech difficulties. Completely resolved and workup negative for acute stroke. Possible TIA, appreciated neurology input. Hypertensive urgency, present on admission, now BP better controlled. Recommended follow up with PCP Type 2 diabetes, new diagnosis, hemoglobin A1c is 6.8, not on any medications, recommended diet control and follow up with PCP for starting the treatment. Discussed with the patient. Hypothyroid, elevated TSH, this is again near diagnosis, started low-dose Synthroid and recommended for thyroid function test in 3-4 weeks. Discussed with the patient. Leukocytosis, with no obvious focus of infection. UA and chest x-ray were negative and white count is normal now. Coronary artery disease with recent left heart catheterization, monitor troponin and make sure its normal not trending up Peripheral arterial disease and left lower extremity stent placement Essential hypertension, continue current medications and follow closely Hyperlipidemia with elevated triglycerides History of cervical disc disease and disc fusion surgery BPH On going tobacco use, needs counseling DC instructions: 1- DC home today. 2- Follow with neurology instructions. 3- Follow with PCP in 1 week. 4- Recommended diabetic diet 5- Thyroid function test in 3-4 weeks Discharge Medications (17) Active Aspir 81 81 mg, Oral, Daily Bystolic 10 mg oral tablet 10 mg = 1 Tab, Oral, Daily Flonase 2 Tillson, PRN, Nasal, EveryOtherDay furosemide 20 mg oral tablet 20 mg = 1 Tab, Oral, Daily isosorbide mononitrate 30 mg, Oral, QAM Konsyl , Oral, EveryOtherDay Lipitor 20 mg oral tablet 40 mg = 2 Tab, Oral, At Bedtime - NEW Lopid 600 mg oral tablet 600 mg = 1 Tab, Oral, BID NexIUM 24HR 20 mg oral delayed release capsule , Oral, Daily Nitrostat 0.4 mg sublingual tablet 0.4 mg = 1 Tab, PRN, SubLINgual, Q5Min Norvasc 10 mg oral tablet 10 mg = 1 Tab, Oral, Daily Plavix 75 mg oral tablet 75 mg = 1 Tab, Oral, Daily - NEW per neurology potassium chloride 20 mEq oral tablet, extended release , Oral, BID Proscar 5 mg, Oral, Daily Synthroid 25 mcg (0.025 mg) oral tablet 12.5 mcg = 0.5 Tab, Oral, Daily - New and follow with PCP Vitamin B12 1,000 mcg, Oral, Daily ZyrTEC 10 mg, PRN, Oral, Daily DC time spent: 36 minutes Cc DC summary to PCP, neurology documented in this encounter Plan of Treatment Upcoming Encounters Date Type Department Care Team (Late st Contact Info) Description 03/10/2025 1:15 PM EDT Office Visit [facility] Cardiology - [address] [address] Tabby Mcallister PA-C [address] [address] documented as of this encounter Visit Diagnoses Not on filedocumented in this encounter Care Teams Cvicu Rn Relationship Specialty Start Date End Date Stacy Moise PA PCP - General 03/02/23 documented as of this encounter
--- OUTSIDE RECORDS SUMMARY | 2024-09-30 17:11 | XMS_ITS | Encounter Summary ---
Author Organization [employer] Address [address] [place] [address] Care Team Providers Care Paper Coating Supervisor Name Role Phone Stacy Moise Primary Care Provider [phone] Encounter Details Date Type Department Care Team (Late st Contact Info) Description 11/26/2020 Transcribed Document [facility] [address] ProviderMireya MD [address] [place] [id number] Social History Tobacco Use Types Packs/Day Years Used Date Smoking Tobacco: Never Assessed Sex and Gender Information Value Date Recorded Sex Assigned at Not on file Legal Sex Male 5:25 PM CDT Gender Identity Not on file Sexual Orientation Not on file documented as of this encounter Miscellaneous Notes * Cerner Conversion Note - Mireya ProviderMD - 11/26/2020 12:18 PM PULP GRINDER [place] Suicide Severity Rating Scale (C-SSRS) Entered On: 11/26/2020 17:45 EST Performed On: 11/26/2020 17:43 EST by Elieser Lopez RN-RESOURCE [place] Suicide Severity Rating Scale (C-SSRS) CSSRS Past Month Wish to be : No CSSRS Past Month Suicidal Thoughts : No CSSRS Lifetime Suicide Behavior : No Suicide Severity Rating Score : 0 Suicide Severity Rating : No Additional Care Required at this time Elieser Lopez RN-RESOURCE - 11/26/2020 17:43 EST documented in this encounter Plan of Treatment Upcoming Encounters Date Type Department Care Team (Late st Contact Info) Description 03/10/2025 1:15 PM EDT Office Visit [facility] Cardiology - [place] [address] [place] [address] Tabby Mcallister PA-Yuliana [address] [facility] [address] [place] [address] documented as of this encounter Visit Diagnoses Not on filedocumented in this encounter Care Teams Paper Coating Supervisor Relationship Specialty Start Date End Date Stacy Moise PA PCP - General 03/02/23 documented as of this encounter
--- OUTSIDE RECORDS SUMMARY | 2024-09-30 17:11 | XMS_ITS | Encounter Summary ---
Author Organization [employer] Address [address] [facility] [place] [address] Care Team Providers Care Clear Coat Sprayer Name Role Phone Stacy Moise Primary Care Provider [phone] Encounter Details Date Type Department Care Team (Late st Contact Info) Description 03/11/2020 Transcribed Document [facility] Family Medicine [facility] [place] [address] ProviderMireya MD [address] [place] [id number] Social History Tobacco Use Types Packs/Day Years Used Date Smoking Tobacco: Never Assessed Sex and Gender Information Value Date Recorded Sex Assigned at Not on file Legal Sex Male 5:25 PM CDT Gender Identity Not on file Sexual Orientation Not on file documented as of this encounter Miscellaneous Notes * Cerner Conversion Note - Mireya Osuna MD - 03/11/2020 11:01 AM CDT DATE OF CONSULTATION: 03/11/2020 NEUROLOGY CONSULTATION REASON FOR CONSULT: TIA. HISTORY OF PRESENT ILLNESS: This is a 74-year-old male with history of peripheral vascular disease, coronary artery disease, hypertension, hyperlipidemia, past GI bleed, who presented yesterday with acute onset dizziness, unsteady gait, and left facial paresthesias. He was initially a code stroke , but at that time, his only symptoms included mild left lower face paresthesias, and therefore he was not considered for thrombolytics due to very mild and improving symptoms. This was discussed with Dr. Smalls in the emergency room. Today, he reports complete resolution of all symptoms and he is feeling at baseline. He tells me that after a GI bleed in fall 2018, his Plavix was discontinued and was not restarted. At that time, he did have cauterization of the bleeding areas and received infusions of B12 and IV iron and has not had any issues with bleeding since that time. He has continued on aspirin. He does not believe he has had any episodes of prior stroke, but does note last fall he had an episode where he was falling to the left but that resolved and he did not seek medical attention at that time. Otherwise, today he is feeling well with no residual symptoms. He has been ambulating without difficulty and facial paresthesias have resolved. PAST MEDICAL HISTORY: Coronary artery disease, peripheral vascular disease, GI bleed, hypertension, hyperlipidemia, possible TIA, prediabetes. HOME MEDICATIONS: 1. Gemfibrozil. 2. Furosemide. 3. Amlodipine. 4. Nebivolol. 5. Rosuvastatin. 6. Cyanocobalamin. 7. Cetirizine. 8. Sublingual nitroglycerin as needed. 9. Fluticasone. 10. Finasteride. 11. Esomeprazole. 12. Aspirin. SOCIAL HISTORY: He lives at home with his . He smokes 10 cigarettes per day. He rarely drinks alcohol. No use of illicit drugs. FAMILY HISTORY: Heart disease. REVIEW OF SYSTEMS: No fevers or chills. No headaches. No change in speech or vision. No ongoing focal numbness, weakness, or tingling. No chest pain or shortness of breath. No nausea or vomiting. No bowel or bladder complaints. No recent falls or trauma. No depression or anxiety. Otherwise, complete review of systems is negative. PHYSICAL EXAMINATION: GENERAL: He is awake, alert, well oriented, in no acute distress. Remote and recent memory are intact with no attention deficits. VITAL SIGNS: Blood pressure 125/79, heart rate 77, temperature 97.9. CARDIAC: Currently showing normal sinus rhythm. RESPIRATIONS: Nonlabored. EXTREMITIES: Without clubbing, cyanosis, or edema. NEUROLOGIC: Speech is fluent with intact comprehension. He is not dysarthric. Cranial nerves II through XII are intact. Visual quiroga are full. Funduscopic exam deferred for safety reasons. Motor strength is 5/5 throughout with normal muscle bulk and tone. No abnormal movements. Sensation intact to light touch. He was not ataxic with [id number]-alyz. Deep tendon reflexes were deferred for safety reasons. I did observe him to ambulate without assistance. DIAGNOSTIC STUDIES: IMAGING STUDIES: Head CT without contrast was performed showing no acute abnormalities. I reviewed these images. He had CTA of the head and neck and CT perfusion, which were all unremarkable as well. This was discussed with the radiologist. MRI of the brain is pending for today. LABORATORY RESULTS: Blood work has been reviewed. His white count is 14.1, total cholesterol 137 with an LDL 49. ASSESSMENT AND PLAN: A 74-year-old male with multiple stroke risk factors including coronary artery disease, hypertension, hyperlipidemia, peripheral vascular disease, who presents with an episode of unsteadiness, dizziness, and left facial paresthesias, which have all completely resolved. Symptoms are most consistent with probable transient ischemic attack, although MRI of the brain is pending at this time as is an echocardiogram. Initial head CT as well as CTA of the head and neck were all unremarkable. He has been on aspirin only after Plavix was discontinued due to a GI bleed and fall, although it seems that GI bleed was treated and has not recurred. At this time, I think the benefit of Plavix outweighs any ongoing risk and have recommended that the patient restart Plavix in addition to aspirin. He is agreeable to this and I have ordered that. Otherwise, we will await the pending test, but if these are unremarkable, he would be fine for discharge home at any time from my standpoint. He voices plan to follow up with Dr. Brown as an outpatient for any further recommendations. I would anticipate discharge home later today or tomorrow, and again we will follow up the pending tests with any further recommendations. Thank you for this consult. /[id number] MD ROSEMARY Meraz/MIKEL / ROSEMARY / BEBA /[id number] documented in this encounter Plan of Treatment Upcoming Encounters Date Type Department Care Team (Late st Contact Info) Description 03/10/2025 1:15 PM EDT Office Visit [facility] Cardiology - [place] [address] [place] [address] Tabby Mcallister PA-C [address] [facility] [address] [place] [address] documented as of this encounter Visit Diagnoses Not on filedocumented in this encounter Care Teams Clear Coat Sprayer Relationship Specialty Start Date End Date Stacy Moise PA PCP - General 03/02/23 documented as of this encounter
--- OUTSIDE RECORDS SUMMARY | 2024-09-30 17:11 | XMS_ITS | Encounter Summary ---
Author Organization [employer] Address [address] [place] [address] Care Team Providers Care Metallurgical Analyst Name Role Phone Stacy Moise Primary Care Provider [phone] Encounter Details Date Type Department Care Team (Late st Contact Info) Description 03/10/2020 Transcribed Document [facility] [place] [facility] [place] [address] ProviderMireya MD [address] [place] [phone] Social History Tobacco Use Types Packs/Day Years Used Date Smoking Tobacco: Never Assessed Sex and Gender Information Value Date Recorded Sex Assigned at Not on file Legal Sex Male 5:25 PM CDT Gender Identity Not on file Sexual Orientation Not on file documented as of this encounter Miscellaneous Notes * Cerner Conversion Note - Historical ProviderMD - 03/10/2020 6:26 PM CDT Consult Phone Call Documentation Entered On: 03/11/2020 8:56 EDT Performed On: 03/10/2020 18:26 EDT by Nat Rockwell, Oracle Technical Developer-Health Unit Coord Phone Call for Consults Consult Phone Call/Page Attempt : Other: duplicate Nat Rockwell, Oracle Technical Developer-Health Unit Coord - 03/11/2020 8:55 EDT documented in this encounter Plan of Treatment Upcoming Encounters Date Type Department Care Team (Late st Contact Info) Description 03/10/2025 1:15 PM EDT Office Visit [facility] Cardiology - [address] [address] Tabby Mcallister PA-C 227 [facility] [address] [place] [address] documented as of this encounter Visit Diagnoses Not on filedocumented in this encounter Care Teams Metallurgical Analyst Relationship Specialty Start Date End Date Stacy Moise PA PCP - General 03/02/23 documented as of this encounter
--- OUTSIDE RECORDS SUMMARY | 2024-09-30 17:11 | XMS_ITS | Encounter Summary ---
Author Organization [employer] Address [address] [place] [address] Care Team Providers Care Sole Leveler Name Role Phone Stacy Moise Primary Care Provider [phone] Encounter Details Date Type Department Care Team (Late st Contact Info) Description 03/11/2020 Transcribed Document [facility] Family Medicine [address] [place] [address] ProviderMireya MD [address] [place] [id number] Social History Tobacco Use Types Packs/Day Years Used Date Smoking Tobacco: Never Assessed Sex and Gender Information Value Date Recorded Sex Assigned at Not on file Legal Sex Male 5:25 PM CDT Gender Identity Not on file Sexual Orientation Not on file documented as of this encounter Miscellaneous Notes * Cerner Conversion Note - Historical ProviderMD - 03/11/2020 5:00 AM CDT Chart Check - Review Order Profile Entered On: 03/11/2020 3:14 EDT Performed On: 03/11/2020 5:00 EDT by JOHNSON JACKMAN RN Chart Check Powerplans Initiated/Discontinued as Appropriate : Yes All Active Orders Reviewed : Yes JOHNSON JACKMAN RN - 03/11/2020 3:13 EDT documented in this encounter Plan of Treatment Upcoming Encounters Date Type Department Care Team (Late st Contact Info) Description 03/10/2025 1:15 PM EDT Office Visit [facility] Cardiology - [address] [address] Tabby Mcallister PA-C [address] [facility] [address] [place] [address] documented as of this encounter Visit Diagnoses Not on filedocumented in this encounter Care Teams Sole Leveler Relationship Specialty Start Date End Date Stacy Moise PA PCP - General 03/02/23 documented as of this encounter
--- OUTSIDE RECORDS SUMMARY | 2024-09-30 17:11 | XMS_ITS | Encounter Summary ---
Author Organization [employer] Address [address] [place] [address] Care Team Providers Care Pamphlet Distributor Name Role Phone Stacy Moise Primary Care Provider [phone] Encounter Details Date Type Department Care Team (Late st Contact Info) Description 11/26/2020 Transcribed Document [facility] Family Medicine [facility] [place] [address] ProviderMireya MD [address] [place] [address] Social History Tobacco Use Types Packs/Day Years Used Date Smoking Tobacco: Never Assessed Sex and Gender Information Value Date Recorded Sex Assigned at Not on file Legal Sex Male 5:25 PM CDT Gender Identity Not on file Sexual Orientation Not on file documented as of this encounter Miscellaneous Notes * Cerner Conversion Note - Historical ProviderMD - 11/26/2020 6:24 PM CLARIFIER Electronically signed by [facility] Conversion Graphics Production Specialist Cerner at 02/16/2023 4:00 PM CDT documented in this encounter Plan of Treatment Upcoming Encounters Date Type Department Care Team (Late st Contact Info) Description 03/10/2025 1:15 PM EDT Office Visit [facility] Cardiology - [place] [address] [place] [address] Tabby Mcallister PA-C [address] [facility] [address] [place] [address] documented as of this encounter Visit Diagnoses Not on filedocumented in this encounter Care Teams Pamphlet Distributor Relationship Specialty Start Date End Date Stacy Moise PA PCP - General 03/02/23 documented as of this encounter
--- OUTSIDE RECORDS SUMMARY | 2024-09-30 17:11 | XMS_ITS | Encounter Summary ---
Author Organization [employer] Address [address] [place] [address] Care Team Providers Care Early Childhood Specialist Name Role Phone Stacy Moise Primary Care Provider [phone] Encounter Details Date Type Department Care Team (Late st Contact Info) Description 03/11/2020 Transcribed Document [facility] [place] [facility] [place] [address] ProviderMireya MD [address] [place] [phone] Social History Tobacco Use Types Packs/Day Years Used Date Smoking Tobacco: Never Assessed Sex and Gender Information Value Date Recorded Sex Assigned at Not on file Legal Sex Male 5:25 PM CDT Gender Identity Not on file Sexual Orientation Not on file documented as of this encounter Miscellaneous Notes * Cerner Conversion Note - Historical ProviderMD - 03/11/2020 2:00 AM CDT Regional Dedicated Truck Driver Details Entered On: 03/11/2020 1:31 EDT Performed On: 03/11/2020 2:00 EDT by JOHNSON JACKMAN RN Order Details Transport Mode Order Detail : Ambulatory Isolation Precautions Order Detail : Standard Precautions Order Detail : N/A IV Order Detail : 1 Oxygen Order Detail : 0 Nurse Collect Order Detail : 0 Lift/Transfer : Independent Central Line Order Detail : No Room Service : Appropriate Arterial Line : No JOHNSON JACKMAN RN - 03/11/2020 1:31 EDT documented in this encounter Plan of Treatment Upcoming Encounters Date Type Department Care Team (Late st Contact Info) Description 03/10/2025 1:15 PM EDT Office Visit [facility] Cardiology - [place] [address] [place] [address] Tabby Mcallistre PA-Yuliana [address] [facility] [address] [place] [address] documented as of this encounter Visit Diagnoses Not on filedocumented in this encounter Care Teams Early Childhood Specialist Relationship Specialty Start Date End Date Stacy Moise PA PCP - General 03/02/23 documented as of this encounter
--- OUTSIDE RECORDS SUMMARY | 2024-09-30 17:11 | XMS_ITS | Encounter Summary ---
Author Organization [employer] Address [address] [address] Care Team Providers Care Clinic Scheduler Name Role Phone Stacy Moise Primary Care Provider Encounter Details Date Type Department Care Team (Late st Contact Info) Description 03/10/2020 Transcribed Document [facility] [address] [place] [address] Sheila Haji MD [address] [place] [address] [address] [place] [id number] Social History Tobacco Use Types Packs/Day Years Used Date Smoking Tobacco: Never Assessed Sex and Gender Information Value Date Recorded Sex Assigned at Not on file Legal Sex Male 5:25 PM CDT Gender Identity Not on file Sexual Orientation Not on file documented as of this encounter Miscellaneous Notes * Cerner Conversion Note - Sheila Haji MD - 03/10/2020 8:54 PM EDT DATE OF ADMISSION: 03/10/2020 PRIMARY CARE PROVIDER: Dr. May. REFERRING FACILITY: [facility]. CHIEF COMPLAINT: Left facial numbness, ataxia, dizziness. HISTORY OF PRESENT ILLNESS: This 74-year-old gentleman presented with stroke-like symptoms. He underwent left heart catheterization a couple of days ago per Dr. Coffman. Medical management was recommended by the Cardiology. The patient tells me this morning he woke up and just did not feel well. He reports dizziness and lightheadedness this morning. He tells me his gait was wobbly and he felt as if he was intoxicated. Around 4 this afternoon, he started having some left-sided facial tingling and numbness which overtime worsened. He also reports some mild left-sided headache. Denies any paresthesia, weakness, tingling, numbness involving left arm or left leg. He denies any prior history of stroke or transient ischemic attack. He is taking aspirin on a daily basis. He tells me previously he was on Plavix as well which was discontinued secondary to what appears to be GI bleed issue in the fall of 2019. Due to worsening symptoms, the patient presented here. He adamantly denies any effortful or nonfluent speech or any trouble finding words. No report of chest pain, shortness of air, cough, fever, or sputum production. Upon entry to the ED, the patient was noted to have marked hypertension with systolic blood pressure of 193. He underwent CT scan of the head along with CT angiogram of the head and neck. These imaging studies appeared unremarkable for most part. His baseline labs identified minimal hyperglycemia with blood glucose of 150. He also noted to have minimal leukocytosis with peripheral white cell count of 10. Concern was raised for a stroke. Dr. Tom Smalls apparently discussed this case with Dr. Carmencita Roberts, neurologist on-call, who recommended the patient be admitted for further management. Our service was therefore consulted. By the time I walked in, the patient was feeling better, although he continued to have left-sided facial numbness. His systolic blood pressure is still close to 180 when I walked in. REVIEW OF SYSTEMS: 14-point review of systems was performed and is negative unless otherwise mentioned above. PAST MEDICAL HISTORY: Significant for coronary artery disease status post multiple percutaneous interventions, recent left heart catheterization couple of days ago, history of peripheral arterial disease having had left lower extremity stent placement by Dr. Carrasco, history of what appears to be GI bleeding which led to discontinuation of Plavix, essential hypertension, history of cervical spine surgery with fusion by Dr. Wagner, prior cholecystectomy, lipoma removal from the neck area in the past, and history of prostate hyperplasia. FAMILY HISTORY: Positive for coronary artery disease. SOCIAL HISTORY: He smokes cigarettes regularly, about 10 per day. Denies any alcohol or drug abuse. He is and lives with his . CODE STATUS: The patient elected full code status. HOME MEDICATIONS: He cannot recall the list of his home medications. This will be addressed once placed in the system by the nursing staff in a prompt fashion. ALLERGIES: None listed. PHYSICAL EXAMINATION: GENERAL: , elderly gentleman, lying on the bed, comfortable, no acute distress. Alert, awake, oriented. Following all commands. Moving all 4 extremities. Pleasant to talk to. His speech seems fluent without any obvious deficit. VITAL SIGNS: Blood pressure 193/84, heart rate 62, respiratory rate 16, he is afebrile, room air saturation 98%. HEENT: Pupils round and regular. No ptosis. No icterus. Ocular movements are full. Oropharynx is benign. I do not see any facial droop. Head is atraumatic and symmetrical. NECK: Supple. CARDIOVASCULAR: S1, S2. No S3 or S4. LUNGS: Clear to auscultation bilaterally. ABDOMEN: Soft, nontender with audible bowel sounds in all 4 quadrants. EXTREMITIES: No major pedal edema. Pedal pulses are palpable. No calf tenderness. NEUROLOGICAL: His ocular movements are full. I do not see ptosis. I do not see facial droop. He is moving all 4 extremities. Muscle tone normal. Reflexes normal. Hand director product development is strong and equal bilaterally. Overall, the strength has no deficit. MUSCULOSKELETAL: Non-alarming. SKIN: I do not see any rashes or lesions. LABORATORY AND DIAGNOSTIC DATA: CT head, CT angiogram of the head and neck non-alarming. Blood glucose elevated at 150. Electrolytes are normal. Peripheral white cell count minimally elevated at 10. Hemoglobin, hematocrit, platelets normal. INR normal. IMPRESSION: 1. Sudden onset left-sided facial numbness, paresthesia along with dizziness, ataxia, and unsteady gait with mild headache, suspicious for transient ischemic attack versus other etiologies. 2. Hypertensive urgency, systolic blood pressure greater than 193 upon entry. 3. Hyperglycemia with initial blood glucose of 150, diabetes mellitus need to be ruled out. 4. Minimal leukocytosis, etiology unclear, perhaps related to stress. 5. Coronary artery disease with prior multiple percutaneous interventions, status post recent left heart catheterization as outlined above. 6. Ongoing tobacco abuse. 7. Peripheral arterial disease with prior lower extremity stent. 8. History of cervical spine fusion. 9. History of lipoma. 10. Benign prostate hyperplasia. PLAN: The patient is being admitted at this time. Obvious concern is for stroke versus transient ischemic attack. Initial imaging studies are unremarkable. I believe it is worthwhile getting MRI of the brain. This will be arranged. We will also obtain echocardiogram of the heart and carotid duplex. We will ask for Neurology consultation. We will continue antiplatelet as well as statin therapy. Neuro checks will be done. We will ask for Speech and Physical and Occupational Therapy evaluation as well. The other major concern right now is uncontrolled high blood pressure which can certainly leads to worsening stroke. The patient has hypertensive urgency which will be watched closely. I have ordered hydralazine intravenously which can be used on as needed basis. Subset of home antihypertensive medications will be continued. If blood pressure fails to improve, then consideration will be given for initiating Cardene drip with continuous infusion to lower the blood pressure into the acceptable range. At that point, the patient will need to be transferred to intensive care settings for close monitoring. I have strongly urged him to quit tobacco use. I have also added nicotine patch. Neurology will be officially consulted as well. We will also obtain hemoglobin A1c to rule out diabetes in the morning. In regard to leukocytosis, this is perhaps simply stress-related. I will simply repeat another CBC in the morning to trend his leukocytosis. Plan of care was discussed extensively with the patient. Certainly, high risk patient for worsening given probable transient ischemic attack, hypertensive urgency, and high risk for mortality and morbidity. The patient elected full code status. /[id number] MD ALFONZO Guerra/AQ / IAJoe / MODL documented in this encounter Plan of Treatment Upcoming Encounters Date Type Department Care Team (Late st Contact Info) Description 03/10/2025 1:15 PM EDT Office Visit [facility] - [place] [address] [place] [address] Tabby Mcallister PA-C 227 [facility] [address] [place] [address] documented as of this encounter Visit Diagnoses Not on filedocumented in this encounter Care Teams Clinic Scheduler Relationship Specialty Start Date End Date Stacy Moise PA PCP - General 03/02/23 documented as of this encounter
--- OUTSIDE RECORDS SUMMARY | 2024-09-30 17:11 | XMS_ITS | Encounter Summary ---
Author Organization [employer] Address [address] [place] [address] Care Team Providers Care Coupon Collection Clerk Name Role Phone Stacy Moise Primary Care Provider Encounter Details Date Type Department Care Team (Late st Contact Info) Description 03/19/2020 Transcribed Document [facility] [place] [address] ProviderMireya MD [address] [place] [id number] Social History Tobacco Use Types Packs/Day Years Used Date Smoking Tobacco: Never Assessed Sex and Gender Information Value Date Recorded Sex Assigned at Not on file Legal Sex Male 5:25 PM CDT Gender Identity Not on file Sexual Orientation Not on file documented as of this encounter Miscellaneous Notes * Cerner Conversion Note - Mireya ProviderMD - 03/19/2020 12:06 PM CDT Discharge Follow Up Phone Call Entered On: 03/19/2020 12:13 EDT Performed On: 03/19/2020 12:06 EDT by Molly Villarreal pharmacy intake technician Follow Up Phone Call Third Call Date/Time : 04/11/2020 13:42 EDT Molly Villarreal RN - 04/11/2020 13:41 EDT Second Call Date/Time : 03/27/2020 15:19 EDT Molly Villarreal RN - 03/27/2020 15:19 EDT Stroke Discharge Follow Up : Open Molly Villarreal RN - 03/19/2020 12:06 EDT Discharge Disposition : No Documentation Available Molly Villarreal RN - 05/16/2020 13:46 EDT Post Visit Phone Call History : First call, Second call, Third call Molly Villarreal RN - 04/11/2020 13:39 EDT First Call Date/Time : 03/19/2020 12:06 EDT Contact Name : Joan Contact Relationship to Patient : Spouse Emergency Room Visit Since DC : No Did the Nurse Give/Explain Discharge Instructions? : Yes Discharge Instructions Understood? : Yes Medication Discharge Instructions Clear/Understood? : Yes Prescriptions Were Filled Post Discharge : Yes Taking Medications as Prescribed : Yes Pt Experienced Any Side Effects From Abx Or Other Medication : No Molly Villarreal RN - 03/19/2020 12:06 EDT Provider Follow-Up Post Discharge : Discharge Follow Up CARLA VAZQUEZ - 00:00 AM Molly Villarreal RN - 05/16/2020 13:46 EDT Follow Up Scheduled With PCP? : Yes Patient Has PCP Contact Info? : Yes Follow Up Scheduled with Specialist? : Yes Patient Has Specialist Contact Info? : Yes Patient Experienced Pain During Visit : No Molly Villarreal RN - 03/19/2020 12:06 EDT Previously Documented Fpc Patient Stated Goal : No Patient Stated Goal Molly Villarreal RN - 05/16/2020 13:46 EDT Questions/Concerns At Time Of Phone Call? : No Additional Questions Concerns Addressed During Dc Phone Call : No DC Call Center Nurse Actions : No additional follow up needed Molly Villarreal RN - 03/19/2020 12:06 EDT Post Visit Comments : 03/19 @ 1206: 7 day stroke follow up: spoke to patients , Joan, she states the patient is doing well and taking all medications. 03/27 @ 1520: 14 day stroke follow up: no answer, left voicemail. 04/11 @ 1340: 30 day stroke follow up: spoke to , she states patient is doing well. She says patient still has headaches often, following up with neurologists regarding headaches. Already followed up with neurosurgery, and has another appt in may. 05/16 @ 1347: 60 day stroke follow up: spoke to patients . Pt has follow up appt with neurosurgery on May 28. Still taking all medications. Molly Villarreal RN - 05/16/2020 13:46 EDT Stroke Discharge Follow Up Phone Call Patient Rates The Overall Quality Of Stroke Care Received : A Stroke Discharge Information Packet Helpful? : Yes Molly Villarreal, RN - 03/19/2020 12:06 EDT documented in this encounter Plan of Treatment Upcoming Encounters Date Type Department Care Team (Late st Contact Info) Description 03/10/2025 1:15 PM EDT Office Visit [facility] Cardiology - [place] [address] [place] [address] Tabby Mcallister PA-C [address] [facility] [address] [place] [address] documented as of this encounter Visit Diagnoses Not on filedocumented in this encounter Care Teams Coupon Collection Clerk Relationship Specialty Start Date End Date Stacy Moise PA PCP - General 03/02/23 documented as of this encounter
--- OUTSIDE RECORDS SUMMARY | 2024-09-30 17:11 | XMS_ITS | Encounter Summary ---
Author Organization [employer] Address [address] [place] [address] Care Team Providers Care Associate Store Director Name Role Phone Stacy Moise Primary Care Provider [phone] Encounter Details Date Type Department Care Team (Late st Contact Info) Description 03/11/2020 Transcribed Document [facility] [place] [address] ProviderMireya MD [address] [place] [id number] Social History Tobacco Use Types Packs/Day Years Used Date Smoking Tobacco: Never Assessed Sex and Gender Information Value Date Recorded Sex Assigned at Not on file Legal Sex Male 5:25 PM CDT Gender Identity Not on file Sexual Orientation Not on file documented as of this encounter Miscellaneous Notes * Cerner Conversion Note - Mireya ProviderMD - 03/11/2020 12:14 AM CDT Education-Smoking Cessation Entered On: 03/11/2020 1:31 EDT Performed On: 03/11/2020 0:14 EDT by JOHNSON JACKMAN RN Teaching/Learning Assessment Barriers To Learning : None evident Individuals Taught : Patient Readiness to Learn : Cooperative Learning Style Preferences Patient : Verbal explanation JOHNSON JACKMAN RN - 03/11/2020 1:31 EDT Chris Davenport RN - 03/12/2020 5:03 EDT Education: Smoking/Tobacco Cessation Topics Smoking Cess Educatin Grid Advice Given to Stop Smoking : Verbalizes understanding Risks/Benefits of Smoking : Verbalizes understanding Second Hand Smoke : Verbalizes understanding Ed-Smoking Cessation Programs : Verbalizes understanding JOHNSON JACKMAN RN - 03/11/2020 1:31 EDT Tobacco Cessation Counseling Grid Drinking Alcohol : Verbalizes understanding Reduce Stress/Exposure to Tobacco Cues : Verbalizes understanding Basic Information About Quitting : Verbalizes understanding JOHNSON JACKMAN RN - 03/11/2020 1:31 EDT Electronically signed by Juarez, [facility] Conversion Sociocultural Anthropology Professor Cerner at 02/16/2023 3:45 PM CDT documented in this encounter Plan of Treatment Upcoming Encounters Date Type Department Care Team (Late st Contact Info) Description 03/10/2025 1:15 PM EDT Office Visit [facility] Cardiology - [place] [address] [place] [address] Tabby Mcallister PA-C [address] [address] documented as of this encounter Visit Diagnoses Not on filedocumented in this encounter Care Teams Associate Store Director Relationship Specialty Start Date End Date Satcy Moise PA PCP - General 03/02/23 documented as of this encounter
--- OUTSIDE RECORDS SUMMARY | 2024-09-30 17:11 | XMS_ITS | Encounter Summary ---
Author Organization [employer] Address [address] [facility] [place] [address] Care Team Providers Care Plum Packer Name Role Phone Stacy Moise Primary Care Provider [phone] Encounter Details Date Type Department Care Team (Late st Contact Info) Description 03/12/2020 Transcribed Document [facility] [address] [place] [address] ProviderMireya MD [address] [place] [id number] Social History Tobacco Use Types Packs/Day Years Used Date Smoking Tobacco: Never Assessed Sex and Gender Information Value Date Recorded Sex Assigned at Not on file Legal Sex Male 5:25 PM CDT Gender Identity Not on file Sexual Orientation Not on file documented as of this encounter Miscellaneous Notes * Cerner Conversion Note - Historical ProviderMD - 03/12/2020 5:00 AM CDT Chart Check - Review Order Profile Entered On: 03/12/2020 5:04 EDT Performed On: 03/12/2020 5:00 EDT by Chris Davenport, RN Chart Check Powerplans Initiated/Discontinued as Appropriate : Yes All Active Orders Reviewed : Yes Chris Davenport, RN - 03/12/2020 5:04 EDT documented in this encounter Plan of Treatment Upcoming Encounters Date Type Department Care Team (Late st Contact Info) Description 03/10/2025 1:15 PM EDT Office Visit [facility] Cardiology - [address] [address] Tabby Mcallister PA-C [address] [address] documented as of this encounter Visit Diagnoses Not on filedocumented in this encounter Care Teams Plum Packer Relationship Specialty Start Date End Date Stacy Moise PA PCP - General 03/02/23 documented as of this encounter
--- OUTSIDE RECORDS SUMMARY | 2024-09-30 17:11 | XMS_ITS | Encounter Summary ---
Author Organization [employer] Address [address] [place] [place] [address] Care Team Providers Care Spinner Operator Name Role Phone Stacy Moise Primary Care Provider [phone] Encounter Details Date Type Department Care Team (Late st Contact Info) Description 03/11/2020 Transcribed Document [facility] [place] [address] [place] [address] ProviderMireya MD [address] [place] [id number] Social History Tobacco Use Types Packs/Day Years Used Date Smoking Tobacco: Never Assessed Sex and Gender Information Value Date Recorded Sex Assigned at Not on file Legal Sex Male 5:25 PM CDT Gender Identity Not on file Sexual Orientation Not on file documented as of this encounter Miscellaneous Notes * Cerner Conversion Note - Historical ProviderMD - 03/11/2020 12:[address] [facility] [facility] Charg[facility] Entered On: 03/11/2020 12:38 EDT Performed On: 03/11/2020 12:38 EDT by BIRDIE JENNINGS PT [facility] Physical Therapy Screen : 1 BIRDIE JENNINGS PT - 03/11/2020 12:38 EDT Electronically signed by Katie Pizarro Conversion Director Clinical Applications Cerner at 02/16/2023 3:57 PM CDT documented in this encounter Plan of Treatment Upcoming Encounters Date Type Department Care Team (Late st Contact Info) Description 03/10/2025 1:15 PM EDT Office Visit [facility] Cardiology - [address] [address] Tabby Mcallister PA-C [address] [place] [address] documented as of this encounter Visit Diagnoses Not on filedocumented in this encounter Care Teams Spinner Operator Relationship Specialty Start Date End Date Stacy Moise PA PCP - General 03/02/23 documented as of this encounter
--- OUTSIDE RECORDS SUMMARY | 2024-09-30 17:11 | XMS_ITS | Encounter Summary ---
Author Organization [employer] Address [address] [place] [address] Care Team Providers Care Immigration Coordinator Name Role Phone Stacy Moise Primary Care Provider [phone] Encounter Details Date Type Department Care Team (Late st Contact Info) Description 03/12/2020 Transcribed Document [facility] [place] [facility] [address] ProviderMireya MD [address] [place] [id number] Social History Tobacco Use Types Packs/Day Years Used Date Smoking Tobacco: Never Assessed Sex and Gender Information Value Date Recorded Sex Assigned at Not on file Legal Sex Male 5:25 PM CDT Gender Identity Not on file Sexual Orientation Not on file documented as of this encounter Miscellaneous Notes * Cerner Conversion Note - Mireya Osuna MD - 03/12/2020 10:23 AM CDT Patient: SCOTTIE CURRAN Age: 74 years Sex: Male : 1945 Associated Diagnoses: None Author: VIRI DAVID MD-KOFI Subjective Pt is doing well, remains asymptomatic with no further episodes of facial parathesias or dizziness Objective VS/Measurements Vital Signs/Vital Measures 03/12/2020 9:10 EDT Systolic Blood Pressure 149 mmHg HI Diastolic Blood Pressure 78 mmHg 03/12/2020 6:00 EDT Temperature, Fahrenheit 97.9 Deg F Heart Rate Monitored 65 bpm General: awake and alert, in no distress; speech is fluent with no dysarthria. Eye: Pupils are equal, round and reactive to light, Extraocular movements are intact. Respiratory: Respirations are non-labored. Cardiovascular: Normal rate, Regular rhythm. Neurologic: CN grossly intact; motor strength is 5/5 throughout, no ataxia, sensation intact. He is able to ambulate without assistance. Psychiatric: Cooperative, Appropriate mood & affect. Results Review MRI brain- no acute abnormalities; I reviewed images Echo/carotids pending (did have CTA which was unremarkable; does not need to await carotid doppler results) Impression and Plan 74yo M with h/o CAD, PVD, prior TIA admitted with a transient episode of left lower facial parathesias and dizziness; symptoms resolved shortly after admission and have not recurred. He has been off Plavix since last Fall following a GI bleed, which was treated with cauterization and has not recurred. I think this episode was likely TIA; I have recommended to restart Plavix in addition to aspirin, patient is agreeable to this. MRI brain is unremarkable; echo is pending and I will f/u these results. He did have CTA head/neck on admission which was unremarkable as well. He is fine for discharge home today from my standpoint; he tells me he plans to follow up with Dr Jd Brown later this week. I will sign off from here, call with any questions. documented in this encounter Plan of Treatment Upcoming Encounters Date Type Department Care Team (Late st Contact Info) Description 03/10/2025 1:15 PM EDT Office Visit [facility] Cardiology - [place] [address] [place] [address] Tabby Mcallister PA-C 227 [facility] [address] [place] [address] documented as of this encounter Visit Diagnoses Not on filedocumented in this encounter Care Teams Immigration Coordinator Relationship Specialty Start Date End Date Stacy Moise PA PCP - General 03/02/23 documented as of this encounter
--- OUTSIDE RECORDS SUMMARY | 2024-09-30 17:11 | XMS_ITS | Encounter Summary ---
Author Organization [employer] Address [address] [place] [id number] Care Team Providers Care Lifeline Representatives Name Role Phone Stacy Moise Primary Care Provider [phone] Encounter Details Date Type Department Care Team (Late st Contact Info) Description 03/11/2020 Transcribed Document [facility] Family Medicine [address] [place] [address] ProviderMireya MD [address] [place], [place] [address] Social History Tobacco Use Types Packs/Day Years Used Date Smoking Tobacco: Never Assessed Sex and Gender Information Value Date Recorded Sex Assigned at Not on file Legal Sex Male 5:25 PM CDT Gender Identity Not on file Sexual Orientation Not on file documented as of this encounter Miscellaneous Notes * Cerner Conversion Note - Historical ProviderMD - 03/11/2020 12:29 PM CDT Therapy Screen, OT Entered On: 03/11/2020 12:30 EDT Performed On: 03/11/2020 12:29 EDT by MIGEL ACOSTA OTR/Terri Therapy Screen, OT Medical Chart Reviewed : Yes Screen Completed : Yes Therapy Screen Findings, OT : Patient at functional baseline Additional Therapy Screen Comment : Pt is I and does not need OTE. Should change occur OT will re-assess per MD orders. MIGEL ACOSTA OTR/Terri - 03/11/2020 12:29 EDT documented in this encounter Plan of Treatment Upcoming Encounters Date Type Department Care Team (Late st Contact Info) Description 03/10/2025 1:15 PM EDT Office Visit [facility] Cardiology - [place] [address] [place] [address] Tabby Mcallister PA-Yuliana [address] [facility] [address] [place] [address] documented as of this encounter Visit Diagnoses Not on filedocumented in this encounter Care Teams Lifeline Representatives Relationship Specialty Start Date End Date Stacy Moise PA PCP - General 03/02/23 documented as of this encounter
--- OUTSIDE RECORDS SUMMARY | 2024-09-30 17:11 | XMS_ITS | Encounter Summary ---
Author Organization [email or web address] Address [address] [facility] [address] Care Team Providers Care Turf Sales Person Name Role Phone Stacy Moise Primary Care Provider [phone] Encounter Details Date Type Department Care Team (Late st Contact Info) Description 11/26/2020 Transcribed Document [facility] [place] [facility] [place] [address] ProviderMireya MD [address] [place] [address] Social History Tobacco Use Types Packs/Day Years Used Date Smoking Tobacco: Never Assessed Sex and Gender Information Value Date Recorded Sex Assigned at Not on file Legal Sex Male 5:25 PM CDT Gender Identity Not on file Sexual Orientation Not on file documented as of this encounter Miscellaneous Notes * Cerner Conversion Note - Mireya ProviderMD - 11/26/2020 6:43 PM ACTIVE DIRECTORY ADMINISTRATOR ED Discharge Entered On: 11/26/2020 18:43 EST Performed On: 11/26/2020 18:43 EST by Etelvina Swartz, paediatric surgeon Process Education Comment : per primary RN Etelvina Swartz, RN - 11/26/2020 18:43 EST Electronically signed by Ju[facility] Conversion [facility] Office Coordinator [place] at 02/16/2023 4:10 PM CDT documented in this encounter Plan of Treatment Upcoming Encounters Date Type Department Care Team (Late st Contact Info) Description 03/10/2025 1:15 PM EDT Office Visit [facility] Cardiology - [place] [address] [place] [address] Tabby Mcallister PA-C [address] [place] [phone] documented as of this encounter Visit Diagnoses Not on filedocumented in this encounter Care Teams Turf Sales Person Relationship Specialty Start Date End Date Stacy Moise PA PCP - General 03/02/23 documented as of this encounter
--- OUTSIDE RECORDS SUMMARY | 2024-09-30 17:11 | XMS_ITS | Encounter Summary ---
Author Organization [employer] Address [address] [place] [address] Care Team Providers Care Keyboard Operator Name Role Phone Unavailable Primary Care Provider Unavailabl e Encounter Details Date Type Department Care Team (Late st Contact Info) Description 11/26/2020 Historic Encounter [facility] Radiology [address] [place] [id number] Clemente Beck MD [address] [place] [address] Social History Tobacco Use Types Packs/Day Years [...] Office Visit [facility] Cardiology - [place] [address] [place] [address] Tabby Mcallister PA-C [address] [facility] [address] [place] [address] documented as of this encounter Procedures Procedure Name Priority Date/Time Associated Diagnosis Comments CTA NECK STAT 11/26/2020 6:07 PM EST CTA BRAIN STAT 11/26/2020 6:[address] BRAIN WITHOUT IV CONTRAST STAT 11/26/2020 6:06 PM EST CBC W/ AUTO DIFF ([facility] BKR DATA CONV) Routine 11/26/2020 5:54 PM EST AUTOMATED DIFFERENTIAL ([facility] BKR DATA CONV) Routine 11/26/2020 5:54 PM EST GLUCOSE-POC Routine 11/26/2020 5:50 PM EST XR CHEST 2 VIEWS Routine 11/26/2020 1:40 PM EST BMP BASIC METABOLIC PANEL ([facility] BKR DATA CONV) Routine 11/26/2020 12:30 PM EST PTT ([facility] BKR DATA CONV) Routine 11/26/2020 12:30 PM EST PT/INR PROTHROMBIN TIME ([facility] [employer] DATA CONV) Routine 11/26/2020 12:30 PM EST TROPONIN I ULTRA ([facility] [employer] DATA CONV) Routine 11/26/2020 12:30 PM EST documented in this encounter Results * CTA NECK (11/26/2020 6:07 PM EST) Anatomical Region Laterality Modality Neck, Head, Carotid Computed Garcia ography 11/26/2020 6:07 PM EST Narrative 11/26/2020 11:[address] HISTORY: Facial weakness TECHNIQUE: Multiple axial CT images were performed [...] sinus or osseous abnormality seen. IMPRESSION: Unremarkable. CT NECK ANGIO, WITHOUT AND [...] were employed. COMPARISON: None. FINDINGS: Aortic arch: ??No significant abnormality. Right carotid: ??There is a less than 50% stenosis involving the carotid bulb. The ICA is otherwise unremarkable. The CCA is normal. Left carotid: Unremarkable. Vertebrals: Unremarkable. IMPRESSION: ??No significant stenosis. CTA HEAD HISTORY: As above TECHNIQUE: Thin-section axial CT with contrast with multiplanar reconstruction. This study was performed with techniques to keep radiation doses as low as reasonably achievable, (ALARA). Individualized dose reduction techniques using automated exposure control or adjustment of mA and/or kV according to the patient size were employed. FINDINGS: ??The intracranial portions of the internal carotid arteries demonstrate atherosclerotic calcification, but there is no apparent stenosis. The anterior and middle cerebral arteries are unremarkable bilaterally. The intracranial vertebral arteries, the basilar artery and their major branches are also within normal limits. IMPRESSION: ??No apparent stenosis. ?? Procedure Note Clemente Beck MD - 02/17/[address] HISTORY: Facial weakness TECHNIQUE: Multiple axial CT images were performed [...] sinus or osseous abnormality seen. IMPRESSION: Unremarkable. CT NECK ANGIO, WITHOUT AND [...] were employed. COMPARISON: None. FINDINGS: Aortic arch: No significant abnormality. Right carotid: There is a less than 50% stenosis involving the carotid bulb. The ICA is otherwise unremarkable. The CCA is normal. Left carotid: Unremarkable. Vertebrals: Unremarkable. IMPRESSION: No significant stenosis. CTA HEAD HISTORY: As above TECHNIQUE: Thin-section axial CT with contrast with multiplanar reconstruction. This study was performed with techniques to keep radiation doses as low as reasonably achievable, (ALARA). Individualized dose reduction techniques using automated exposure control or adjustment of mA and/or kV according to the patient size were employed. FINDINGS: The intracranial portions of the internal carotid arteries demonstrate atherosclerotic calcification, but there is no apparent stenosis. The anterior and middle cerebral arteries are unremarkable bilaterally. The intracranial vertebral arteries, the basilar artery and their major branches are also within normal limits. IMPRESSION: No apparent stenosis. Clemente Beck MD IM CT ORDERABLES Final Result * CTA brain (11/26/2020 6:07 PM EST) Anatomical Region Laterality Modality Brain, Head Computed Tomogra phy 11/26/2020 6:07 PM EST Narrative 11/26/2020 11:[address] HISTORY: Facial weakness TECHNIQUE: Multiple axial CT images were performed [...] sinus or osseous abnormality seen. IMPRESSION: Unremarkable. CT NECK ANGIO, WITHOUT AND [...] were employed. COMPARISON: None. FINDINGS: Aortic arch: ??No significant abnormality. Right carotid: ??There is a less than 50% stenosis involving the carotid bulb. The ICA is otherwise unremarkable. The CCA is normal. Left carotid: Unremarkable. Vertebrals: Unremarkable. IMPRESSION: ??No significant stenosis. CTA HEAD HISTORY: As above TECHNIQUE: Thin-section axial CT with contrast with multiplanar reconstruction. This study was performed with techniques to keep radiation doses as low as reasonably achievable, (ALARA). Individualized dose reduction techniques using automated exposure control or adjustment of mA and/or kV according to the patient size were employed. FINDINGS: ??The intracranial portions of the internal carotid arteries demonstrate atherosclerotic calcification, but there is no apparent stenosis. The anterior and middle cerebral arteries are unremarkable bilaterally. The intracranial vertebral arteries, the basilar artery and their major branches are also within normal limits. IMPRESSION: ??No apparent stenosis. ?? Procedure Note Clemente Beck MD - 02/17/[address] HISTORY: Facial weakness TECHNIQUE: Multiple axial CT images were performed [...] sinus or osseous abnormality seen. IMPRESSION: Unremarkable. CT NECK ANGIO, WITHOUT AND [...] were employed. COMPARISON: None. FINDINGS: Aortic arch: No significant abnormality. Right carotid: There is a less than 50% stenosis involving the carotid bulb. The ICA is otherwise unremarkable. The CCA is normal. Left carotid: Unremarkable. Vertebrals: Unremarkable. IMPRESSION: No significant stenosis. CTA HEAD HISTORY: As above TECHNIQUE: Thin-section axial CT with contrast with multiplanar reconstruction. This study was performed with techniques to keep radiation doses as low as reasonably achievable, (ALARA). Individualized dose reduction techniques using automated exposure control or adjustment of mA and/or kV according to the patient size were employed. FINDINGS: The intracranial portions of the internal carotid arteries demonstrate atherosclerotic calcification, but there is no apparent stenosis. The anterior and middle cerebral arteries are unremarkable bilaterally. The intracranial vertebral arteries, the basilar artery and their major branches are also within normal limits. IMPRESSION: No apparent stenosis. Clemente Beck MD IMG CT ORDERABLES Final Result * CT brain without IV contrast (11/26/2020 6:06 PM EST) Anatomical Region Laterality Modality Brain, Head Computed Tomogra phy 11/26/2020 6:06 PM EST Narrative 11/26/2020 11:[address] HISTORY: Facial weakness TECHNIQUE: Multiple axial CT images were performed [...] sinus or osseous abnormality seen. IMPRESSION: Unremarkable. CT NECK ANGIO, WITHOUT AND [...] were employed. COMPARISON: None. FINDINGS: Aortic arch: ??No significant abnormality. Right carotid: ??There is a less than 50% stenosis involving the carotid bulb. The ICA is otherwise unremarkable. The CCA is normal. Left carotid: Unremarkable. Vertebrals: Unremarkable. IMPRESSION: ??No significant stenosis. CTA HEAD HISTORY: As above TECHNIQUE: Thin-section axial CT with contrast with multiplanar reconstruction. This study was performed with techniques to keep radiation doses as low as reasonably achievable, (ALARA). Individualized dose reduction techniques using automated exposure control or adjustment of mA and/or kV according to the patient size were employed. FINDINGS: ??The intracranial portions of the internal carotid arteries demonstrate atherosclerotic calcification, but there is no apparent stenosis. The anterior and middle cerebral arteries are unremarkable bilaterally. The intracranial vertebral arteries, the basilar artery and their major branches are also within normal limits. IMPRESSION: ??No apparent stenosis. ?? Procedure Note Clemente Beck MD - 02/17/[address] HISTORY: Facial weakness TECHNIQUE: Multiple axial CT images were performed [...] sinus or osseous abnormality seen. IMPRESSION: Unremarkable. CT NECK ANGIO, WITHOUT AND [...] were employed. COMPARISON: None. FINDINGS: Aortic arch: No significant abnormality. Right carotid: There is a less than 50% stenosis involving the carotid bulb. The ICA is otherwise unremarkable. The CCA is normal. Left carotid: Unremarkable. Vertebrals: Unremarkable. IMPRESSION: No significant stenosis. CTA HEAD HISTORY: As above TECHNIQUE: Thin-section axial CT with contrast with multiplanar reconstruction. This study was performed with techniques to keep radiation doses as low as reasonably achievable, (ALARA). Individualized dose reduction techniques using automated exposure control or adjustment of mA and/or kV according to the patient size were employed. FINDINGS: The intracranial portions of the internal carotid arteries demonstrate atherosclerotic calcification, but there is no apparent stenosis. The anterior and middle cerebral arteries are unremarkable bilaterally. The intracranial vertebral arteries, the basilar artery and their major branches are also within normal limits. IMPRESSION: No apparent stenosis. us Clemente Beck MD IM CT ORDERABLES Final Result * (ABNORMAL) CBC W/ AUTO DIFF ([facility] BKR DATA CONV) (11/26/2020 5:54 PM EST) WBC 14.2(H) 3.6 - 9.5 K/uL 11/26/2020 10:59 PM EST RBC 4.35 4.20 - 5.70 Million/uL 11/26/2020 10:59 PM EST Hgb 12.9(L) 13.5 - 17.3 g/dL 11/26/2020 10:59 PM EST Hct 39.0(L) 40.1 - 51.0 % 11/26/2020 10:59 PM EST MCV 89.7 79.0 - 94.8 fL 11/26/2020 10:59 PM EST MCH 29.7 25.6 - 32.2 pg 11/26/2020 10:59 PM EST MCHC 33.1 32.2 - 36.5 Gram/dL 11/26/2020 10:59 PM EST RDW 13.7 11.7 - 14.9 % 11/26/2020 10:59 PM EST Platelet Count 372(H) 163 - 369 K/uL 11/26/2020 10:59 PM EST MPV 10.0 9.4 - 12.4 fL 11/26/2020 10:59 PM EST Slide Review No 11/26/2020 11:00 PM EST Blood 11/26/2020 5:54 PM EST 11/26/2020 10:57 PM EST [facility] Historical Provider LAB BLOOD ORDERABLES Fi nal Result [facility] [address] [place] [address] * (ABNORMAL) AUTOMATED DIFFERENTIAL ([facility] BKR DATA CONV) (11/26/2020 5:54 PM EST) Neut% 69.3 34.0 - 71.0 % 11/26/2020 10:59 PM EST Lymph% 18.3(L) 19.3 - 53.1 % 11/26/2020 10:59 PM EST Pondera% 9.7(H) 3.0 - 9.0 % 11/26/2020 10:59 PM EST Eos% 1.7 0.0 - 7.0 % 11/26/2020 10:59 PM EST Baso% 0.3 0.0 - 1.5 % 11/26/2020 10:59 PM EST IG% 0.70(H) 0.00 - 0.60 % 11/26/2020 10:59 PM EST Neut# 9.86(H) 1.56 - 6.13 K/uL 11/26/2020 10:59 PM EST Lymph# 2.60 1.00 - 3.90 x10(3)/uL 11/26/2020 10:59 PM EST Pondera# 1.38(H) 0.16 - 1.00 K/uL 11/26/2020 10:59 PM EST Eos# 0.24 0.00 - 0.80 x10(3)/uL 11/26/2020 10:59 PM EST Baso# 0.04 0.00 - 0.20 x10(3)/uL 11/26/2020 10:59 PM EST IG# 0.10(H) 0.00 - 0.05 x10(3)/uL 11/26/2020 10:59 PM EST Blood 11/26/2020 5:54 PM EST 11/26/2020 10:57 PM EST Narrative [facility] - 11/26/2020 11:00 PM EST Added by Discern Expert [facility] Historical Provider LAB BLOOD ORDERABLES Fi nal Result [facility] [address] [phone] * Glucose, Point of Care (11/26/2020 5:50 PM EST) [facility] Glucose POC2 106 70 - 110 mg/dL 11/26/2020 10:50 PM EST [facility] Assistant Shift Supervisor [phone] 11/26/2020 10:50 PM EST [facility] Device SN [id number] 11/26/2020 10:50 PM EST [facility] Device Comment1 Protocols Followed 11/26/2020 10:50 PM EST [facility] Blood 11/26/2020 5:50 PM EST 11/26/2020 10:55 PM EST [facility] Provider POINT OF CARE TEST ORDE RABLES Final Result Performing Organization Address City/[facility]/ZIP Co de Phone Number [facility] [address] [place] [address], [facility] [phone] * XR chest 2 views (11/26/2020 1:40 PM EST) Anatomical Region Laterality Modality Chest X-Ray 11/26/2020 1:40 PM EST Narrative 11/27/2020 4:01 PM EST TWO-VIEW CHEST. HISTORY: Precordial chest pain. COMPARISON: March 10, 2020. FINDINGS: ? 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 The cardiac silhouette is normal in size. The mediastinum is unremarkable. The lungs are hyperexpanded with probable emphysema. There is no acute infiltrate. There is no pneumothorax. There is no acute osseous abnormality. ? IMPRESSION: No acute cardiopulmonary process. Images reviewed, interpreted, and dictated by Dr. Arnaud Urrutia. Transcribed by Danii Cook PA-C. I have personally viewed, interpreted and dictated the examination. I have read and agree with the above final transcribed report. Procedure Note Arnaud Urrutia MD - 02/17/2023 TWO-VIEW CHEST. HISTORY: Precordial chest pain. COMPARISON: March 10, 2020. 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 The cardiac silhouette is normal in size. The mediastinum is unremarkable. The lungs are hyperexpanded with probable emphysema. There is no acute infiltrate. There is no pneumothorax. There is no acute osseous abnormality. IMPRESSION: No acute cardiopulmonary process. Images reviewed, interpreted, and dictated by Dr. rAnaud Urrutia. Transcribed by Danii Cook PA-C. I have personally viewed, interpreted and dictated the examination. I have read and agree with the above final transcribed report. us Arnaud Urrutia MD IMG DIAGNOSTIC IMAGING ORDERABL ES Final Result * TROPONIN I ULTRA ([facility] BK DATA CONV) (11/26/2020 12:30 PM EST) TroponinI Ultra <0.015 0.015 - 0.045 ng/mL 11/26/2020 6:08 PM EST Comment: Troponin Result (ng/ml) ?* Interpretation 0.015 ? 0.045 ?* ??Normal; less than 99th percentile of normal range >0.045 ? * Abnormal; greater than 99th percentile of normal range. ?? Test precision at 0.045 ng/ml is less than 10% Coefficient of Variation. Blood 11/26/2020 12:3 0 PM EST 11/26/2020 5:38 PM EST [facility] Provider LAB BLOOD ORDERABLES Fi nal Result Performing Organization Address [facility] Co de Phone Number [facility] [address] [phone] * PT/INR PROTHROMBIN TIME ([facility] BKR DATA CONV) (11/26/2020 12:30 PM EST) PT 10.9 9.2 - 12.0 Second(s) 11/26/2020 5:51 PM EST INR 1.0 0.9 - 1.2 11/26/2020 5:51 PM EST Comment: DIAGNOSIS ?THERAPEUTIC RANGE a) Primary and secondary prevention of ?2.0-3.0 venous thrombosis b) Active venous thrombosis, pulmonary ?2.0-4.0 embolism and prevention of recurrent venous thrombosis c) Prevention of arterial thromboembolism ? 3.0-4.5 including patients with mechanical heart valves 09/20/2020 Please note: reference ranges have changed Blood 11/26/2020 12:3 0 PM EST 11/26/2020 5:38 PM EST [facility] Provider LAB BLOOD ORDERABLES Fi nal Result Performing Organization Address [facility] Co de Phone Number [facility] [address] [phone] * PTT ([facility] BKR DATA CONV) (11/26/2020 12:30 PM EST) PTT 26.1 22.0 - 33.0 Second(s) 11/26/2020 5:51 PM EST Blood 11/26/2020 12:3 0 PM EST 11/26/2020 5:38 PM EST [facility] Historical Provider LAB BLOOD ORDERABLES Fi nal Result [facility] [address] [place] [id number], [facility] [phone] * (ABNORMAL) BMP BASIC METABOLIC PANEL ([facility] BKR DATA CONV) (11/26/2020 12:30 PM EST) Glucose Level 158(H) 74 - 106 mg/dL 11/26/2020 6:08 PM EST Comment: [employer] has become aware of sulfasalazine and sulfapyridine [...] administration of the drug. Blood Urea Nitrogen 19 7 - 22 mg/dL 11/26/2020 6:08 PM EST Creatinine Level 1.00 0.70 - 1.30 mg/dL 11/26/2020 6:08 PM EST Sodium Level 139 136 - 146 mmol/L 11/26/2020 6:08 PM EST Potassium Level 3.8 3.5 - 5.1 mmol/L 11/26/2020 6:08 PM EST Chloride Level 111 102 - 112 mmol/L 11/26/2020 6:08 PM EST Carbon Dioxide Level 23 21 - 32 mmol/L 11/26/2020 6:08 PM EST Anion Gap 9 9 - 20 11/26/2020 6:08 PM EST Calcium Level 9.4 8.4 - 10.1 mg/dL 11/26/2020 6:08 PM EST Bun/Creatinine 19.0 8.0 - 20.0 11/26/2020 6:08 PM EST eGFR NonAfrican >60 >=60 mL/min/1. 73m2 11/26/2020 6:08 PM EST Comment: GFR <60 suggests chronic kidney disease, if found over 3 month period. GFR <15 indicates renal failure. eGFR >60 >=60 mL/min/1. 73m2 11/26/2020 6:08 PM EST Comment: GFR <60 suggests chronic kidney disease, if found over 3 month period. GFR <15 indicates renal failure. Blood 11/26/2020 12:3 0 PM EST 11/26/2020 5:38 PM EST [facility] Historical Provider LAB BLOOD ORDERABLES nal Result [facility] [address] [phone] documented in this encounter Visit Diagnoses Not on filedocumented in this encounter
--- OUTSIDE RECORDS SUMMARY | 2024-09-30 17:12 | XMS_ITS | Encounter Summary ---
Author Organization [employer] Address [address] [place] [address] Care Team Providers Care As400 Administrator Name Role Phone Stacy Moise Primary Care Provider [phone] Encounter Details Date Type Department Care Team (Late st Contact Info) Description 06/13/2019 Transcribed Document [facility] Family Medicine [address] [place] [address] ProviderMireya MD [address] [place] [address] Social History Tobacco Use Types Packs/Day Years Used Date Smoking Tobacco: Never Assessed Sex and Gender Information Value Date Recorded Sex Assigned at Not on file Legal Sex Male 5:25 PM CDT Gender Identity Not on file Sexual Orientation Not on file documented as of this encounter Miscellaneous Notes * Cerner Conversion Note - Mireya Osuna MD - 06/13/2019 5:25 PM CDT [facility] [place] [address] SCOTTIE CURRAN [facility] :1945 Visit Time:06/13/2019 Your Visit Summary Your Care Team Admitting Physician - JANN RAUSCH MD-SERGEI Attending Physician - JANN RAUSCH MD-SERGEI Primary Care Physician - GER PATEL [facility] Referring Physician - JANN RAUSCH MD-SERGEI Discharge Vitals Temperature 36.6 ??C Heart Rate (Monitored) 60 Respiratory Rate 18 Blood Pressure 119/59 What to do next Instructions From Your Care Team Diet after Discharge: Resume usual diet as tolerated, Do not drink any alcoholic for 24 hours beverages, _ Fluid Restriction after Discharge: _ Activity after Discharge: _, Rest and relax today, _ Lifting Restrictions: No heavy lifting over 10 pounds for 1 weeks Weight Bearing: _ Bedrest: _ Driving after Discharge: _ May Return to Work/School: Showering/Bathing: May remove dressing and shower after 24 hours , _ Notify Provider of: Wound/Incision Care after Discharge: _, _ Medical Equipment for Home Use: Home Health Services: Community Services: Discharge Follow Up Instructions: follow-up in 2 weeks.Please schedule Ankle-Brachial Index(RISA) with followup appointment. Activity: Discharge Activity: No heavy lifting over 10 lbs, Avoid Strenuous Activity Until: for 1 week Follow-Up Appointments Follow Up with JANN RAUSCH MD-SERGEI When Within 2 to 3 days Where: [address] [place] [phone] Medications What How Much When Instructions Next Dose amLODIPine (Norvasc 10 mg oral tablet) 1 Tablet(s) Oral Every Day aspirin (Aspir 81) 81 Milligram(s) Oral Every Day cetirizine (ZyrTEC) 10 Milligram(s) Oral Every Day as needed for as needed for allergy symptoms clopidogrel (Plavix 75 mg oral tablet) 1 Tablet(s) Oral Every Day esomeprazole (NexIUM 20 mg oral delayed release capsule) 1 Capsule(s) Oral Every Day finasteride (Proscar) 5 Milligram(s) Oral Every Day fluticasone nasal (Flonase) 2 Ankeny(s) Nasal Every Other Day furosemide (furosemide 20 mg oral tablet) 1 Tablet(s) Oral Every Day gemfibrozil (Lopid 600 mg oral tablet) 1 Tablet(s) Oral Two Times A Day isosorbide mononitrate 30 Milligram(s) Oral Every Morning nebivolol (Bystolic 10 mg oral tablet) 1 Tablet(s) Oral Every Day nitroglycerin (Nitrostat 0.4 mg sublingual tablet) 1 Tablet(s) SubLINgual Every 5 minutes as needed for Chest Pain potassium chloride (potassium chloride 20 mEq oral tablet, extended release) 1 Tablet(s) Oral Two Times A Day psyllium (Konsyl) Oral Every Other Day rosuvastatin (Crestor 10 mg oral tablet) 1 Tablet(s) Oral Every Other Day Continue all meds as ordered by your doctor. Take your medications faithfully. Do NOT skip [...] Risk Factors Individualized Stroke Risk Factors *Q: Hypertension/High blood pressure, Peripheral vascular disease Stroke/TIA Signs/Symptoms to Report Immediately: Sudden onset difficulty speaking, Sudden onset difficulty understanding speech, Sudden onset change in vision, Sudden onset weakness particulary on one side of the body, Sudden onset numbness/tingling, Sudden severe headache, Sudden dizziness or trouble with gait, Call : EMS activation is crucial Mutually Agreed Upon Goals My LDL Level: My LDL Level: Education Materials General Anesthesia, Adult, Care After This sheet gives you information about how to care for yourself after your procedure. Your health care provider may also give you more specific instructions. If you have problems or questions, contact your health care provider. What can I expect after the procedure? After the procedure, the following side effects are common: ??? Pain or discomfort at the IV site. ??? Nausea. ??? Vomiting. ??? Sore throat. ??? Trouble concentrating. ??? Feeling cold or chills. ??? Weak or tired. ??? Sleepiness and fatigue. ??? Soreness and body aches. These side effects can affect parts of the body that were not involved in surgery. Follow these instructions at home: For at least 24 hours after the procedure: ??? Have a responsible adult stay with you. It is important to have someone help care for you until you are awake and alert. ??? Rest as needed. ??? Do not: ? Participate in activities in which you could fall or become injured. ? Drive. ? Use heavy machinery. ? Drink alcohol. ? Take sleeping pills or medicines that cause drowsiness. ? Make important decisions or sign legal documents. ? Take care of children on your own. Eating and drinking ??? Follow any instructions from your health care provider about eating or drinking restrictions. ??? When you feel hungry, start by eating small amounts of foods that are soft and easy to digest (bland), such as toast. Gradually return to your regular diet. ??? Drink enough fluid to keep your urine pale yellow. ??? If you vomit, rehydrate by drinking water, juice, or clear broth. General instructions ??? If you have sleep apnea, surgery and certain medicines can increase your risk for breathing problems. Follow instructions from your health care provider about wearing your sleep device: ? Anytime you are sleeping, including during daytime naps. ? While taking prescription pain medicines, sleeping medicines, or medicines that make you drowsy. ??? Return to your normal activities as told by your health care provider. Ask your health care provider what activities are safe for you. ??? Take dllt-ohy-vtsxvwb and prescription medicines only as told by your health care provider. ??? If you smoke, do not smoke without supervision. ??? Keep all follow-up visits as told by your health care provider. This is important. Contact a health care provider if: ??? You have nausea or vomiting that does not get better with medicine. ??? You cannot eat or drink without vomiting. ??? You have pain that does not get better with medicine. ??? You are unable to pass urine. ??? You develop a skin rash. ??? You have a fever. ??? You have redness around your IV site that gets worse. Get help right away if: ??? You have difficulty breathing. ??? You have chest pain. ??? You have blood in your urine or stool, or you vomit blood. Summary ??? After the procedure, it is common to have a sore throat or nausea. It is also common to feel tired. ??? Have a responsible adult stay with you for the first 24 hours after general anesthesia. It is important to have someone help care for you until you are awake and alert. ??? When you feel hungry, start by eating small amounts of foods that are soft and easy to digest (bland), such as toast. Gradually return to your regular diet. ??? Drink enough fluid to keep your urine pale yellow. ??? Return to your normal activities as told by your health care provider. Ask your health care provider what activities are safe for you. This information is not intended to replace advice given to you by your health care provider. Make sure you discuss any questions you have with your health care provider. Document Released: 01/25/2002 Document Revised: 06/04/2018 Document Reviewed: 06/04/2018 [employer] Patient Education ?? 2019 [employer] Angiogram, Care After This sheet gives you information about how to care for yourself after your procedure. Your health care provider may also give you more specific instructions. If you have problems or questions, contact your health care provider. What can I expect after the procedure? After the procedure, it is common to have bruising and tenderness at the catheter insertion area. Follow these instructions at home: Insertion site care ??? Follow instructions from your health care provider about how to take care of your insertion site. Make sure you: ? Wash your hands with soap and water before you change your bandage (dressing). If soap and water are not available, use hand welfare eligibility interviewer. ? Change your dressing as told by your health care provider. ? Leave stitches (sutures), skin glue, or adhesive strips in place. These skin closures may need to stay in place for 2 weeks or longer. If adhesive strip edges start to loosen and curl up, you may trim the loose edges. Do not remove adhesive strips completely unless your health care provider tells you to do that. ??? Do not take baths, swim, or use a hot tub until your health care provider approves. ??? You may shower 24???48 hours after the procedure or as told by your health care provider. ? Gently wash the site with plain soap and water. ? Pat the area dry with a clean towel. ? Do not rub the site. This may cause bleeding. ??? Do not apply powder or lotion to the site. Keep the site clean and dry. ??? Check your insertion site every day for signs of infection. Check for: ? Redness, swelling, or pain. ? Fluid or blood. ? Warmth. ? Pus or a bad smell. Activity ??? Rest as told by your health care provider, usually for 1???2 days. ??? Do not lift anything that is heavier than 10 lbs. (4.5 kg) or as told by your health care provider. ??? Do not drive for 24 hours if you were given a medicine to help you relax (sedative). ??? Do not drive or use heavy machinery while taking prescription pain medicine. General instructions ??? Return to your normal activities as told by your health care provider, usually in about a week. Ask your health care provider what activities are safe for you. ??? If the catheter site starts bleeding, lie flat and put pressure on the site. If the bleeding does not stop, get help right away. This is a medical emergency. ??? Drink enough fluid to keep your urine clear or pale yellow. This helps flush the contrast dye from your body. ??? Take loue-rqw-zkaoxge and prescription medicines only as told by your health care provider. ??? Keep all follow-up visits as told by your health care provider. This is important. Contact a health care provider if: ??? You have a fever or chills. ??? You have redness, swelling, or pain around your insertion site. ??? You have fluid or blood coming from your insertion site. ??? The insertion site feels warm to the touch. ??? You have pus or a bad smell coming from your insertion site. ??? You have bruising around the insertion site. ??? You notice blood collecting in the tissue around the catheter site (hematoma). The hematoma may be painful to the touch. Get help right away if: ??? You have severe pain at the catheter insertion area. ??? The catheter insertion area swells very fast. ??? The catheter insertion area is bleeding, and the bleeding does not stop when you hold steady pressure on the area. ??? The area near or just beyond the catheter insertion site becomes pale, cool, tingly, or numb. These symptoms may represent a serious problem that is an emergency. Do not wait to see if the symptoms will go away. Get medical help right away. Call your local emergency services (911 in the [place] Do not drive yourself to the hospital. Summary ??? After the procedure, it is common to have bruising and tenderness at the catheter insertion area. ??? After the procedure, it is important to rest and drink plenty of fluids. ??? Do not take baths, swim, or use a hot tub until your health care provider says it is okay to do so. You may shower 24???48 hours after the procedure or as told by your health care provider. ??? If the catheter site starts bleeding, lie flat and put pressure on the site. If the bleeding does not stop, get help right away. This is a medical emergency. This information is not intended to replace advice given to you by your health care provider. Make sure you discuss any questions you have with your health care provider. Document Released: 05/07/2006 Document Revised: 09/23/2017 Document Reviewed: 09/23/2017 [employer] Patient Education ?? 2019 [employer] Groin Site Care Refer to this sheet [...] Document Reviewed: 11/21/2011 ExitCare?? Patient Information ??2013 [facility]. Emergency Awareness and Preventative Care STROKE is [...] Assistance with quitting is available by contacting 3-850-RLXJ-NOW. This is a free resource providing counseling, [...] This Visit (last charted value for your 06/13/2019 visit) Hematology 06/13/19 13:19:00 Hemoglobin POC: 11.6 Gram/dL -- Normal range between ( 12.0 and 17.0 ) Hematocrit POC: 34.0 % -- Normal range between ( 38.0 and 51.0 ) General Chemistry 06/13/19 13:19:00 eGFR : 100 mL/min/1.73m2 eGFR NonAfrican: 82 mL/min/1.73m2 Potassium POC: 3.9 mmol/L -- Normal range between ( 3.5 and 4.9 ) Creatinine POC: 0.9 mg/dL -- Normal range between ( 0.6 and 1.3 ) Patient Name:SCOTTIE CURRAN I have received and understand this information and was given the opportunity to ask questions. Patient/Coil Finisher Name: Patient/Coil Finisher Signature: Relationship to Patient: Clinician/Hospital Coil Finisher Signature: Date: Electronically signed by Juarez, [facility] Conversion Machine Filler Cerner at 02/16/2023 4:13 PM CDT documented in this encounter Plan of Treatment Upcoming Encounters Date Type Department Care Team (Late st Contact Info) Description 03/10/2025 1:15 PM EDT Office Visit [facility] Cardiology - [place] [address] [place] [address] Tabby Mcallister PA-C [address] [facility] [address] [place] [address] documented as of this encounter Visit Diagnoses Not on filedocumented in this encounter Care Teams As400 Administrator Relationship Specialty Start Date End Date Stacy Moise PA PCP - General 03/02/23 documented as of this encounter
--- OUTSIDE RECORDS SUMMARY | 2024-09-30 17:12 | XMS_ITS | Encounter Summary ---
Author Organization [facility] In [employer] Address [address] [facility] [place] [address] Care Team Providers Care Finish Rolls Operator Name Role Phone Stacy Moise Primary Care Provider [phone] Encounter Details Date Type Department Care Team (Late st Contact Info) Description 01/13/2020 Historic Encounter [facility] [address] [place] [address] ProviderJuan Historical Social History Tobacco [...] Visit [facility] Cardiology - [place] [address] [place] [address] Tabby Mcallister PA-C [address] [place] [address] [address] [place] [address] documented as of this encounter Procedures Procedure Name Priority Date/Time Associated Diagnosis Comments URINALYSIS WITHOUT MICROSCOPIC ([facility] BKR DATA CONV) Routine 01/13/2020 11:47 AM EDT documented in this encounter Results * URINALYSIS WITHOUT MICROSCOPIC ([facility] BKR DATA CONV) (01/13/2020 11:47 AM EDT) Pathologist [facility] Urine Type U CleanCatch 01/13/2020 2:40 PM EDT Urine Color Yellow 01/13/2020 4:05 PM EDT Comment: Substances that cause HIGHLY abnormal urine color may affect the accuracy of URINE CHEMISTRY reagent strip results due to colorimetric interference. ??These include visible levels of blood or bilirubin, drugs containing dyes, and some antibiotics such as nitrofurantoin and riboflavin which can cause markedly abnormal urine coloration. Urine Appearance Clear 01/13/20 20 4:05 PM EDT Urine Glucose Dipstick Negative Negative 01/13/2020 4:05 PM EDT Urine Bilirubin Dipstick Negative Negative 01/13/2020 4:05 PM EDT Urine Ketones Dipstick Negative Negative 01/13/2020 4:05 PM EDT Urine Specific Gary 1.020 1.005 - 1.030 01/13/2020 4:05 PM EDT Urine Blood Dipstick Negative Negative 01/13/2020 4:05 PM EDT Urine pH Dipstick 6.0 6.0 - 8.0 01/13/2020 4:05 PM EDT Urine Protein Dipstick Negative Negative 01/13/2020 4:05 PM EDT Comment:Use of urine preserv atives may elevate protein results and reduce bilirubin, blood and nitrite results. Urine Urobilinogen Dipstick 0.2 EU/dL 01/13/2020 4:05 PM EDT Urine Nitrite Negative Negative 01/13/2020 4:05 PM EDT Urine Leukocyte Esterase Negative Negative 01/13/2020 4:05 PM EDT Urine 01/13/2020 11:4 7 AM EDT 01/13/2020 3:58 PM EDT Sle Historical Provider URINE ORDERABLES Final Result [facility] [address] [phone] documented in this encounter Visit Diagnoses Not on filedocumented in this encounter Care Teams Finish Rolls Operator Relationship Specialty Start Date End Date Stacy Moise PA PCP - General 03/02/23 documented as of this encounter
--- OUTSIDE RECORDS SUMMARY | 2024-09-30 17:12 | XMS_ITS | Encounter Summary ---
Author Organization [facility] [employer] Address [address] [place] [address] Care Team Providers Care Thermal Engineer Name Role Phone Stacy Moise Primary Care Provider [phone] Encounter Details Date Type Department Care Team (Late st Contact Info) Description 12/29/2018 Transcribed Document [facility] Family Medicine [address] [place] [address] ProviderMireya MD [address] [place] [id number] Social History Tobacco Use Types Packs/Day Years Used Date Smoking Tobacco: Never Assessed Sex and Gender Information Value Date Recorded Sex Assigned at Not on file Legal Sex Male 5:25 PM CDT Gender Identity Not on file Sexual Orientation Not on file documented as of this encounter Miscellaneous Notes * Cerner Conversion Note - Mireya Osuna MD - 12/29/2018 11:20 AM INSTRUCTIONAL DESIGN TECHNOLOGIST [facility] Main OR Preop Summary Primary Physician: CARLA VAZQUEZ MD-TOMEKA Finalized Date/Time: 12/29/18 14:22:15 Pt. Name: SCOTTIE CURRAN ERIKA /Sex: 1945 Male Med Rec #: [id number] Physician: CARLA VAZQUEZ MD-TOMEKA Financial #: [id number] Pt. Type: I Room/Bed: ASA/8 Admit/Disch: 12/29/18 06:57:00 - Institution: [facility] PreOp Case Times Entry 1 In Preop 12/29/18 08:50:00 Ready for Holding n/a Room Patient Ready for 12/29/18 09:30:00 Surgery Patient Out of Preop 12/29/18 10:47:00 Patient Out of n/a Holding Room Last Modified By: Nay Barrios RN 12/29/18 14:22:14 [facility] PreOp Case Times Audit 12/29/18 14:22:14 Machine Featheredger And Reducer: MAYA Modifier: WRIGHTVP <+> 1 Patient Out of Preop Finalized By: Nay Barrios, RN Document Signatures Signed By: Nay Barrios RN 12/29/18 14:22 Electronically signed by Juarez [facility] Conversion Director [employer] Cerner at 02/16/2023 4:08 PM CDT documented in this encounter Plan of Treatment Upcoming Encounters Date Type Department Care Team (Late st Contact Info) Description 03/10/2025 1:15 PM EDT Office Visit [facility] Cardiology - [place] [address] [place] [address] Tabby Mcallister PA-C [address] [facility] [address] [place] [address] documented as of this encounter Visit Diagnoses Not on filedocumented in this encounter Care Teams Thermal Engineer Relationship Specialty Start Date End Date Stacy Moise PA PCP - General 03/02/23 documented as of this encounter
--- OUTSIDE RECORDS SUMMARY | 2024-09-30 17:12 | XMS_ITS | Encounter Summary ---
Author Organization [facility] In [employer] Address [address] [facility] [place] [address] Care Team Providers Care Director Of Revenue Cycle Management Name Role Phone Stacy Moise Primary Care Provider [phone] Encounter Details Date Type Department Care Team (Late st Contact Info) Description 01/17/2020 Transcribed Document [facility] Family Medicine [address] [place] [address] ProviderMireya MD [address] [place] [id number] Social History Tobacco Use Types Packs/Day Years Used Date Smoking Tobacco: Never Assessed Sex and Gender Information Value Date Recorded Sex Assigned at Not on file Legal Sex Male 5:25 PM CDT Gender Identity Not on file Sexual Orientation Not on file documented as of this encounter Miscellaneous Notes * Cerner Conversion Note - Mireya Osuna MD - 01/17/2020 11:35 AM CDT [facility] Main OR Preop Summary Primary Physician: CARLA VAZQUEZ MD-SNU Finalized Date/Time: 01/17/20 14:42:41 Pt. Name: SCOTTIE CURRAN ERIKA /Sex: 1945 Male Med Rec #: [id number] Physician: CARLA VAZQUEZ MD-SNU Financial #: [id number] Pt. Type: O Room/Bed: Admit/Disch: 01/17/20 06:45:00 - Institution: [facility] PreOp Case Times Entry 1 In Preop 01/17/20 08:22:00 Ready for Holding n/a Room Patient Ready for 01/17/20 10:10:00 Surgery Patient Out of Preop 01/17/20 10:45:00 Patient Out of n/a Holding Room Last Modified By: LIYA JAQUEZ RN 01/17/20 14:42:40 [facility] PreOp Case Times Audit 01/17/20 14:42:40 Clothing Designer: SKYLA Modifier: [email or web address] <+> 1 Patient Out of Preop Finalized By: LIYA JAQUEZ RN Document Signatures Signed By: LIYA JAQUEZ RN 01/17/20 14:42 documented in this encounter Plan of Treatment Upcoming Encounters Date Type Department Care Team (Late st Contact Info) Description 03/10/2025 1:15 PM EDT Office Visit [facility] Cardiology - [place] [address] [place] [address] Tabby Mcallister PA-C [address] [facility] [address] [place] [address] documented as of this encounter Visit Diagnoses Not on filedocumented in this encounter Care Teams Director Of Revenue Cycle Management Relationship Specialty Start Date End Date Stacy Moise PA PCP - General 03/02/23 documented as of this encounter
--- OUTSIDE RECORDS SUMMARY | 2024-09-30 17:12 | XMS_ITS | Encounter Summary ---
Author Organization [employer] Address [address] [place] [address] Care Team Providers Care Fur Examiner Name Role Phone Stacy Moise Primary Care Provider [phone] Encounter Details Date Type Department Care Team (Late st Contact Info) Description 01/17/2020 Transcribed Document [facility] [address] [facility] [address] [place] [address] Leroy Wagner MD [address] [place] [address] [address] [place] [address] Social History Tobacco Use Types Packs/Day Years Used Date Smoking Tobacco: Never Assessed Sex and Gender Information Value Date Recorded Sex Assigned at Not on file Legal Sex Male 5:25 PM CDT Gender Identity Not on file Sexual Orientation Not on file documented as of this encounter Miscellaneous Notes * Cerner Conversion Note - Leroy Wagner MD - 01/17/2020 10:38 AM EDT Patient: SCOTTIE CURRAN Age: 74 years Sex: Male : 1945 Associated Diagnoses: None Author: PETRONA STONE APRN Chief Complaint neck pain/headache Review of Systems ROS reviewed as documented in chart no change since last seen by surgeon Health Status Allergies: Allergic Reactions (Selected) No Known Medication Allergies, Allergies (1) Active Reaction No Known Medication Allergies None Documented Current medications: (Selected) Inpatient Medications Ordered HYDROmorphone: 0.25 mg, IV Push, Q10Min, PRN: Pain (Moderate 4-6) HYDROmorphone: 0.5 mg, IV Push, Q10Min, PRN: Pain (Severe 7-10) fentaNYL: 25 mcg, IV Push, 1-Time, PRN: Pain (Severe 7-10) fentaNYL: 25 mcg, IV Push, Q10Min, PRN: Pain (Moderate 4-6) hydrALAZINE: 2.5 mg, IV Push, Q10Min, PRN: Hypertension magnesium sulfate: 2 Gram, 50 mL, 25 mL/Hr, IV Piggyback, 1-Time, PRN: Pain (Severe 7-10) ondansetron: 4 mg, IV Push, 1-Time, PRN: Nausea/Vomiting oxyCODONE: 5 mg, Oral, 1-Time, PRN: Pain (Moderate 4-6) Documented Medications Documented Aspir 81: 81 mg, Oral, Daily, 0 Refill(s) Bystolic 10 mg oral tablet: 1 Tab, Oral, Daily, 0 Refill(s) Crestor 10 mg oral tablet: 1 Tab, Oral, EveryOtherDay, 0 Refill(s) Flonase: 2 Collbran, Nasal, EveryOtherDay, PRN: Allergies, 0 Refill(s) Konsyl: Oral, EveryOtherDay, 0 Refill(s) Lopid 600 mg oral tablet: 1 Tab, Oral, BID, 0 Refill(s) NexIUM 20 mg oral delayed release capsule: 1 Cap, Oral, Daily, 0 Refill(s) Nitrostat 0.4 [...] chloride 20 mEq oral tablet, extended release: 2 Tab, Oral, BID, 0 Refill(s), Home Medications (16) Active Aspir 81 81 mg, Oral, Daily Bystolic 10 mg oral tablet 10 mg = 1 Tab, Oral, Daily Crestor 10 mg oral tablet 10 mg = 1 Tab, Oral, EveryOtherDay Flonase 2 Collbran, PRN, Nasal, EveryOtherDay furosemide 20 mg oral tablet 20 mg = 1 Tab, Oral, Daily isosorbide mononitrate 30 mg, Oral, QAM Konsyl , Oral, EveryOtherDay Lopid 600 mg oral tablet 600 mg = 1 Tab, Oral, BID NexIUM 20 mg oral delayed release capsule 20 mg = 1 Cap, Oral, Daily Nitrostat 0.4 mg sublingual tablet 0.4 mg = 1 Tab, PRN, SubLINgual, Q5Min Norvasc 10 mg oral tablet 10 mg = 1 Tab, Oral, Daily Plavix 75 mg oral tablet 75 mg = 1 Tab, Oral, Daily potassium chloride 20 mEq oral tablet, extended release 40 mEq = 2 Tab, Oral, BID Proscar 5 mg, Oral, Daily Vitamin B12 1,000 mcg, Oral, Daily ZyrTEC 10 mg, PRN, Oral, Daily , Medications (8) Active Scheduled: (0) Continuous: (0) PRN: (8) fentaNYL 100 mcg/2 mL inj 25 mcg 0.5 mL, IV Push, Q10Min fentaNYL 100 mcg/2 mL inj 25 mcg 0.5 mL, IV Push, 1-Time hydrALAZINE 20 mg/1 mL inj 2.5 mg 0.13 mL, IV Push, Q10Min HYDROmorphone 1 mg/1 mL inj 0.25 mg 0.25 mL, IV Push, Q10Min HYDROmorphone 1 mg/1 mL inj 0.5 mg 0.5 mL, IV Push, Q10Min magnesium sulfate 2 Gram 50 mL, IV Piggyback, 1-Time ondansetron 4 mg/2 mL inj 4 mg 2 mL, IV Push, 1-Time oxyCODONE 5 mg tab 5 mg 1 Tab, Oral, 1-Time Problem list: All Problems Stented coronary artery / SNOMED CT 4530586698 / Confirmed Fatty liver / SNOMED CT 954225024 / Confirmed Cervical spinal stenosis / SNOMED CT 374090146 / Confirmed Renal calculus///HX / SNOMED CT 766452877 / Confirmed Prostatitis///12/2018 / SNOMED CT 12118745 / Confirmed Prediabetes / SNOMED CT 6265631521 / Confirmed Peripheral vascular disease / SNOMED CT 8041872409 / Confirmed Claudication / SNOMED CT 110495912 / Confirmed HTN (hypertension) / SNOMED CT 5914346560 / Confirmed High cholesterol / SNOMED CT 89638851 / Confirmed Murmur / SNOMED CT 457631230 / Confirmed Hard of hearing / SNOMED CT 609704018 / Confirmed GERD - Gastro-esophageal reflux disease / SNOMED CT 2325617048 / Confirmed Dizzy spells (occasional) / SNOMED CT 703854315 / Confirmed Diverticulitis///HX / SNOMED CT 075541468 / Confirmed Disorder of prostate / SNOMED CT 30724926 / Confirmed CAD (coronary artery disease) / SNOMED CT 51710652 / Confirmed Colorectal surgery / SNOMED CT 5735253727 / Confirmed Back pain / SNOMED CT 8601851951 / Confirmed At risk for sleep apnea / IMO 69673224 / Confirmed Arthritis / SNOMED CT 7308085 / Confirmed Aortic valve disease / SNOMED CT 23710475 / Confirmed Angina (hx of, Last had in 2016) / SNOMED CT 316419239 / Confirmed Anemia (hx of) / SNOMED CT 658216424 / Confirmed, Active Problems (24) Anemia (hx of) Angina (hx of, Last had in 2016) Aortic valve disease Arthritis At risk for sleep apnea Back pain CAD (coronary artery disease) Cervical spinal stenosis Claudication Colorectal surgery Disorder of prostate Diverticulitis///HX Dizzy spells (occasional) Fatty liver GERD - Gastro-esophageal reflux disease Hard of hearing High cholesterol HTN (hypertension) Murmur Peripheral vascular disease Prediabetes Prostatitis///12/2018 Renal calculus///HX Stented coronary artery Histories Past Medical History: Resolved Gallbladder disease s/p cholecystectomy (570460667): Resolved. Cataract///extraction (695885914): Resolved. Left hip pain//left leg (hx of) (23262965): Resolved. Family History: No family history items have been selected or recorded. Procedure history: heart cath in 2017 at 72 Years. cardiac stents. left lower extremity vascular stent x2. hand surgery. S/P cholecystectomy ([id number]). colon resection. Cataract surgery (503866343). Colonoscopy (460891733). renal stent. right leg balloon. back fusion lumbar 5 S1 2-2018. Social History Social & Psychosocial Habits Alcohol 11/18/2016 Alcohol Use History, Social Habits Yes Alcohol Use Frequency Rarely Home/Environment 07/21/2014 Lives with: Spouse Living situation: Home/Independent Substance Abuse 12/23/2018 Recreational Drug Use History No Recreational Drug Use Last 12 Months No Tobacco 11/18/2016 Smoking Status Current every day smoker Years of Tobacco Use 55 Packs/Tins Daily 1 . Physical Examination VS/Measurements No qualifying data available General: Alert and oriented, No acute distress. Eye: Pupils are equal, round and reactive to light, Extraocular movements are intact, glasses. HENT: Normocephalic, [place]. Neck: Supple, Non-tender. Respiratory: Lungs are clear to auscultation, Respirations are non-labored. Cardiovascular: Normal rate, Regular rhythm, No murmur, No gallop, No edema. Gastrointestinal: Soft, Non-tender. Genitourinary: No costovertebral angle tenderness. Lymphatics: No lymphadenopathy neck, axilla, groin. Musculoskeletal: Normal strength, painful ROM of neck. Integumentary: Warm, Dry, red healing lesions R anterior chest/neck/clavicular area. Neurologic: Alert, Oriented. Psychiatric: Cooperative, Appropriate mood & affect. Review / Management Results review: Labs (Last four charted values) WBC H 12.0 (JAN 12) HB 14.4 (JAN 12) HCT 41.9 (JAN 12) Plt 339 (JAN 12) Na 138 (JAN 12) K 4.3 (JAN 12) Cl 106 (JAN 12) CO2 26 (JAN 12) BUN 20 (JAN 12) Cr 0.90 (JAN 12) Glu R H 123 (JAN 12) Ca 9.4 (JAN 12) . Impression and Plan Condition: Stable. documented in this encounter Plan of Treatment Upcoming Encounters Date Type Department Care Team (Late st Contact Info) Description 03/10/2025 1:15 PM EDT Office Visit [facility] Cardiology - [place] [address] [place] [address] Tabby Mcallister PA-Yuliana [address] [facility] [address] [place] [address] documented as of this encounter Visit Diagnoses Not on filedocumented in this encounter Care Teams Fur Examiner Relationship Specialty Start Date End Date Stacy Moise PA PCP - General 03/02/23 documented as of this encounter
--- OUTSIDE RECORDS SUMMARY | 2024-09-30 17:12 | XMS_ITS | Encounter Summary ---
Author Organization [facility] [employer] Address [address] [place] [address] Care Team Providers Care Hris Analyst Name Role Phone Stacy Moise Primary Care Provider [phone] Encounter Details Date Type Department Care Team (Late st Contact Info) Description 01/13/2020 Historic Encounter [facility] [address] [place] [address] ProviderJuan Historical Social History Tobacco [...] Description 03/10/2025 1:15 PM EDT Office Visit [facility] Cardiology - [place] [address] [place] [address] Tabby Mcallister PA-C [address] [place] [address] [address] [place] [address] documented as of this encounter Procedures Procedure Name Priority Date/Time Associated Diagnosis Comments CBC (HEMOGRAM ONLY) Routine 01/13/2020 1 1:47 AM EDT documented in this encounter Results * (ABNORMAL) CBC (Hemogram only) (01/13/2020 11:47 AM EDT) WBC 12.0(H) 3.6 - 9.5 K/uL 01/13/2020 3:59 PM EDT RBC 4.54 4.20 - 5.70 Million/uL 01/13/2020 3:59 PM EDT Hgb 14.4 13.5 - 17.3 g/dL 01/13/2020 3:59 PM EDT Hct 41.9 40.1 - 51.0 % 01/13/2020 3:59 PM EDT MCV 92.3 79.0 - 94.8 fL 01/13/2020 3:59 PM EDT MCH 31.7 25.6 - 32.2 pg 01/13/2020 3:59 PM EDT MCHC 34.4 32.2 - 36.5 Gram/dL 01/13/2020 3:59 PM EDT RDW 12.6 11.7 - 14.9 % 01/13/2020 3:59 PM EDT Platelet Count 339 163 - 369 K/uL 01/13/2020 3:59 PM EDT MPV 9.7 9.4 - 12.4 fL 01/13/2020 3:59 PM EDT Slide Review No 01/13/2020 4:02 PM EDT Blood 01/13/2020 11:4 7 AM EDT 01/13/2020 3:57 PM EDT us Sle Historical Provider LAB BLOOD ORDERABLES Fi nal Result [facility] [address] [phone] documented in this encounter Visit Diagnoses Not on filedocumented in this encounter Care Teams Hris Analyst Relationship Specialty Start Date End Date Stacy Moise PA PCP - General 03/02/23 documented as of this encounter
--- OUTSIDE RECORDS SUMMARY | 2024-09-30 17:12 | XMS_ITS | Encounter Summary ---
Author Organization [employer] Address [address] [place] [address] Care Team Providers Care Tobacco Packer Name Role Phone Stacy Moise Primary Care Provider [phone] Encounter Details Date Type Department Care Team (Late st Contact Info) Description 03/10/2020 Transcribed Document [facility] Family Medicine [facility] [place] [address] ProviderMireya MD [address] [place] [id number] Social History Tobacco Use Types Packs/Day Years Used Date Smoking Tobacco: Never Assessed Sex and Gender Information Value Date Recorded Sex Assigned at Not on file Legal Sex Male 5:25 PM CDT Gender Identity Not on file Sexual Orientation Not on file documented as of this encounter Miscellaneous Notes * Cerner Conversion Note - Mireya ProviderMD - 03/10/2020 6:11 PM CDT ED Assessment Entered On: 03/10/2020 18:57 EDT Performed On: 03/10/2020 18:54 EDT by MALINA MANDUJANO RN ED Quick Look Assessment Level of Consciousness : Alert, Awake Affect/Behavior : Appropriate, Calm, Cooperative Orientation : Oriented x 4 Skin Temperature : Warm MALINA MANDUJANO RN - 03/10/2020 18:54 EDT ED General-Functional Assess Information Obtained From : Patient Preferred Communication Mode : Verbal Communication Barrier : None Primary Language : Samoan Any Spiritual/Cultural Needs or Requests : No Currently in Unsafe Situation : No MALINA MANDUJANO RN - 03/10/2020 18:54 EDT Social Habits Smoking Status : Never (less than 100 in lifetime; none in last 30 days) Smokeless Tobacco Status : Never Desires Tobacco Cessation Calc : 0 MALINA MANDUJANO RN - 03/10/2020 18:54 EDT Social History (As Of: 03/10/2020 18:57:19 EDT) Tobacco: Smoking Status Current every day smoker. Years of Use: 55. Packs/Tins Daily: 1. (Last Updated: 11/18/2016 12:55:33 EST by LILIANA CAMILO, RN) Alcohol: Alcohol Use History Yes. Alcohol Use Frequency Rarely. (Last Updated: 11/18/2016 12:56:54 EST by LILIANA CAMILO, RN) Substance Abuse: Drug Use Hx: No. Use in Last 12 Months: No. (Last Updated: 12/23/2018 11:55:19 EST by RENETTA TRAYLOR RN) Home/Environment: Lives with Spouse. Living situation: Home/Independent. (Last Updated: 07/21/2014 22:40:52 EDT by SON DUMONT PA-C) Neurologic ASMT, ED Neurologic Assessment WDL : WDL with exceptions (Comment: Pt presents to the ER via POV with left sided facial numbness that started around 1600 today. Also states he has been slightly dizzy since waking up today. Denies history of CVA or TIA. Pt is alert and oriented and able to make his needs known. Speech is clear, foundation relations manager are strong and equal. Pupils PERRLA. Denies chest pain and SOB. [MALINA MANDUJANO RN - 03/10/2020 18:54 EDT] ) Neurological Symptoms : None Level of Consciousness : Alert, Awake Affect/Behavior : Appropriate, Calm Speech : Clear Pupils Equal, Round, Reactive to Light : Yes Pupil Description, Left : Regular, Round Pupil Reaction, Left : Brisk Pupil Description, Right : Regular, Round Pupil Reaction, Right : Brisk Pupil Size, Left : 2 mm Pupil Size, Right : 2 mm MALINA MANDUJANO RN - 03/10/2020 18:54 EDT documented in this encounter Plan of Treatment Upcoming Encounters Date Type Department Care Team (Late st Contact Info) Description 03/10/2025 1:15 PM EDT Office Visit [facility] Cardiology - [address] [address] Tabby Mcallister PA-C [address] [place] [address] [place] [address] documented as of this encounter Visit Diagnoses Not on filedocumented in this encounter Care Teams Tobacco Packer Relationship Specialty Start Date End Date Stacy Moise PA PCP - General 03/02/23 documented as of this encounter
--- OUTSIDE RECORDS SUMMARY | 2024-09-30 17:12 | XMS_ITS | Encounter Summary ---
Author Organization [employer] [address] [place] [address] Care Team Providers Care Airline Counter Agent Name Role Phone Stacy Moise Primary Care Provider [phone] Encounter Details Date Type Department Care Team (Late st Contact Info) Description 03/10/2020 Transcribed Document [facility] [place] [address] ProviderMireya MD [address] [place] [id number] Social History Tobacco Use Types Packs/Day Years Used Date Smoking Tobacco: Never Assessed Sex and Gender Information Value Date Recorded Sex Assigned at Not on file Legal Sex Male 5:25 PM CDT Gender Identity Not on file Sexual Orientation Not on file documented as of this encounter Miscellaneous Notes * Cerner Conversion Note - Mireya Osuna MD - 03/10/2020 6:26 PM CDT Consult to Cushion Builder Entered On: 03/12/2020 11:56 EDT Performed On: 03/12/2020 10:30 EDT by Molly Villarreal RN Consult to Cushion Builder Modifiable Risk Factors : Dyslipidemia, Hypertension, Heart disease(CAD, CHF, Dilated Cardiomyopathy), PVD or other arterial disease Non-Modifiable Risk Factors, Age : Non-Modifiable Risk Factors, Age Age: 74 Years Non-Modifiable Risk Factors, Race : Non-Modifiable Risk Factors, Race Race: White Non-Modifiable Risk Factors, Family History : Non-Modifiable Risk Factors, Family History No Qualifying Results Found Modified Donna Score : Modified Donna Scale No qualifying data available. NIH Stroke Scale (Admission) : NIH Stroke Scale (Admission) NIH Scale Score: 0 (03/10/2020 19:30:00) NIH Stroke Scale (Discharge) : NIH Stroke Scale (Discharge) NIH Scale Score: 0 (03/10/2020 19:30:00) Bedside Swallow (STAGECRAFT TEACHER) : Bedside Swallow (STAGECRAFT TEACHER) Swallow Outcome BS Swallow: Intact (03/11/20 10:14:00) Swallow Position BS Swallow: Upright 90 degrees (03/11/20 10:14:00) Head Control BS Swallow: Neutral head position (03/11/20 10:14:00) Trunk Control BS Swallow: Upright centered position (03/11/20 10:14:00) Presentation Style BS Swallow: Self (03/11/20 10:14:00) Consistencies Trialed BS Swallow: Thin by straw, Regular solids (03/11/20 10:14:00) Molly Villarreal RN - 03/12/2020 11:58 EDT Pertinent Diagnostic Tests : CT scan, MRI, Carotid ultrasound/Duplex, 2D echocardiogram Molly Villarreal RN - 03/12/2020 11:48 EDT Cushion Builder Needs Assessment Diagnosis Documented by Provider : Transient Ischemic Attack Molly Villarreal RN - 03/12/2020 11:48 EDT Modifiable Risk Factors : Dyslipidemia, Hypertension, Smoking, Heart disease(CAD, CHF, Dilated Cardiomyopathy), PVD or other arterial disease Molly Villarreal RN - 03/12/2020 11:58 EDT Pertinent Medications, Stroke : Antiplatelets, Antihypertensives, Antihyperlipidemics Medication needs at DC Per Core Measures : Statin Current Med Route Ordered : PO Cushion Builder Consultation Summary : Met with patient to provide stroke eduation. Patient sitting on side of bed. We discussed types of stroke, TIA, stroke risk factors, stroke signs/symptoms, tPA and lifestyle changes to prevent a stroke. Patient was asking multiple questions about how to prevent a stroke. I encouraged patient to quit smoking, monitor blood pressue closely, adhere to medication regimen, regular exercise and eat a heart healthy diet. I also disccused the benefits and risks of tPA at length with the patient as well as other medications (aspirin, plavix and blood pressure medications). I encouraged patient to follow up with neurologist and PCP at discharge. He stated he has an appointment with Kevin Garcia this . I provided patient with a stroke education folder that included handouts of all information discussed as well as my contact information for future needs. Molly Villarreal RN - 03/12/2020 11:48 EDT (As Of: 03/12/2020 11:58:25 EDT) Problems(Active) Anemia (hx of) (SNOMED CT :674685103 ) Name of Problem: Anemia (hx of) ; Recorder: QUOC HALL RN; Confirmation: Confirmed ; Classification: Medical ; Code: [id number] ; Contributor System: PowerChart ; Last Updated: 01/13/2020 11:12 EDT ; Life Cycle Date: 01/13/2020 ; Life Cycle Status: Active ; Vocabulary: SNOMED CT Angina (hx of, Last had in 2016) (SNOMED CT :370953785 ) Name of Problem: Angina (hx of, Last had in 2016) ; Recorder: RENETTA TRAYLOR RN; Confirmation: Confirmed ; Classification: Medical ; Code: 101194099 ; Contributor System: PowerChart ; Last Updated: 01/13/2020 11:09 EDT ; Life Cycle Status: Active ; Vocabulary: SNOMED CT Aortic valve disease (SNOMED CT :84704263 ) Name of Problem: Aortic valve disease ; Recorder: Jhon Perez RN; Confirmation: Confirmed ; Classification: Medical ; Code: 16132060 ; Contributor System: PowerChart ; Last Updated: 05/24/2015 21:46 EDT ; Life Cycle Date: 05/24/2015 ; Life Cycle Status: Active ; Vocabulary: SNOMED CT Arthritis (SNOMED CT :6980810 ) Name of Problem: Arthritis ; Recorder: RENETTA TRAYLOR RN; Confirmation: Confirmed ; Classification: Medical ; Code: 3453117 ; Contributor System: PowerChart ; Last Updated: 12/23/2018 11:50 EST ; Life Cycle Date: 12/23/2018 ; Life Cycle Status: Active ; Vocabulary: SNOMED CT At risk for sleep apnea (IMO :84778255 ) Name of Problem: At risk for sleep apnea ; Recorder: BLADIMIR, SYSTEM; Confirmation: Confirmed ; Classification: Medical ; Code: 92660108 ; Last Updated: 12/23/2018 12:09 EST ; Life Cycle Date: 12/23/2018 ; Life Cycle Status: Active ; Vocabulary: IMO Back pain (SNOMED CT :3674549943 ) Name of Problem: Back pain ; Recorder: RENETTA TRAYLOR RN; Confirmation: Confirmed ; Classification: Medical ; Code: 5143344759 ; Contributor System: PowerChart ; Last Updated: 12/23/2018 11:50 EST ; Life Cycle Date: 12/23/2018 ; Life Cycle Status: Active ; Vocabulary: SNOMED CT CAD (coronary artery disease) (SNOMED CT :50760986 ) Name of Problem: CAD (coronary artery disease) ; Recorder: Jhon Perez, MIKE; Confirmation: Confirmed ; Classification: Medical ; Code: 00972369 ; Contributor System: PowerChart ; Last Updated: 05/24/2015 21:45 EDT ; Life Cycle Date: 05/24/2015 ; Life Cycle Status: Active ; Vocabulary: SNOMED CT Cervical spinal stenosis (SNOMED CT :801460138 ) Name of Problem: Cervical spinal stenosis ; Recorder: QUOC HALL RN; Confirmation: Confirmed ; Classification: Medical ; Code: 826559958 ; Contributor System: PowerChart ; Last Updated: 01/13/2020 11:13 EDT ; Life Cycle Date: 01/13/2020 ; Life Cycle Status: Active ; Vocabulary: SNOMED CT Claudication (SNOMED CT :196501925 ) Name of Problem: Claudication ; Recorder: ALFREDA CASTILLO; Confirmation: Confirmed ; Classification: Medical ; Code: 792958177 ; Contributor System: PowerChart ; Last Updated: 06/13/2019 12:55 EDT ; Life Cycle Date: 06/13/2019 ; Life Cycle Status: Active ; Vocabulary: SNOMED CT Colorectal surgery (SNOMED CT :8002735342 ) Name of Problem: Colorectal surgery ; Recorder: QUOC HALL RN; Confirmation: Confirmed ; Classification: Medical ; Code: 4249823754 ; Contributor System: PowerChart ; Last Updated: 01/13/2020 11:12 EDT ; Life Cycle Date: 01/13/2020 ; Life Cycle Status: Active ; Vocabulary: SNOMED CT Disorder of prostate (SNOMED CT :00726878 ) Name of Problem: Disorder of prostate ; Recorder: LILIANA CAMILO RN; Confirmation: Confirmed ; Classification: Patient Stated ; Code: 41658341 ; Contributor System: PowerChart ; Last Updated: 04/19/2018 9:14 EDT ; Life Cycle Date: 04/19/2018 ; Life Cycle Status: Active ; Vocabulary: SNOMED CT Diverticulitis///HX (SNOMED CT :889619453 ) Name of Problem: Diverticulitis///HX ; Recorder: RENETTA TRAYLOR RN; Confirmation: Confirmed ; Classification: Medical ; Code: 481478401 ; Contributor System: [employer] ; Last Updated: 12/23/2018 11:46 EST ; Life Cycle Date: 12/23/2018 ; Life Cycle Status: Active ; Vocabulary: SNOMED CT Dizzy spells (occasional) (SNOMED CT :812062858 ) Name of Problem: Dizzy spells (occasional) ; Recorder: QUOC HALL RN; Confirmation: Confirmed ; Classification: Medical ; Code: 919133568 ; Contributor System: [employer]emedia[employer] ; Last Updated: 01/13/2020 11:16 EDT ; Life Cycle Date: 01/13/2020 ; Life Cycle Status: Active ; Vocabulary: SNOMED CT Fatty liver (SNOMED CT :419627557 ) Name of Problem: Fatty liver ; Recorder: QUOC HALL RN; Confirmation: Confirmed ; Classification: Medical ; Code: 168903459 ; Contributor System: [employer] ; Last Updated: 01/13/2020 11:14 EDT ; Life Cycle Date: 01/13/2020 ; Life Cycle Status: Active ; Vocabulary: SNOMED CT GERD - Gastro-esophageal reflux disease (SNOMED CT :3124357454 ) Name of Problem: GERD - Gastro-esophageal reflux disease ; Recorder: RNEETTA TRAYLOR RN; Confirmation: Confirmed ; Classification: Medical ; Code: 5608218992 ; Contributor System: PowerChart ; Last Updated: 12/23/2018 11:49 EST ; Life Cycle Date: 12/23/2018 ; Life Cycle Status: Active ; Vocabulary: SNOMED CT Hard of hearing (SNOMED CT :434236546 ) Name of Problem: Hard of hearing ; Recorder: LILIANA CAMILO RN; Confirmation: Confirmed ; Classification: Patient Stated ; Code: 680601792 ; Contributor System: [employer]Chart ; Last Updated: 04/19/2018 9:13 EDT ; Life Cycle Date: 04/19/2018 ; Life Cycle Status: Active ; Vocabulary: SNOMED CT Has been smoking for 30 years ([address] :193799669 ) Name of Problem: Has been smoking for 30 years ; Recorder: Nieves Fraga, Registered Nurse; Confirmation: Confirmed ; Classification: Patient Stated ; Code: 779592930 ; Contributor System: PowerChart ; Last Updated: 03/08/2020 10:17 EDT ; Life Cycle Date: 03/08/2020 ; Life Cycle Status: Active ; Vocabulary: SNOMED CT High cholesterol (SNOMED CT :91693299 ) Name of Problem: High cholesterol ; Recorder: Jhon Perez, MIKE; Confirmation: Confirmed ; Classification: Medical ; Code: 85515733 ; Contributor System: PowerChart ; Last Updated: 05/24/2015 21:46 EDT ; Life Cycle Date: 05/24/2015 ; Life Cycle Status: Active ; Vocabulary: SNOMED CT HTN (hypertension) (SNOMED CT :6262729370 ) Name of Problem: HTN (hypertension) ; Recorder: Jhon Perez, MIKE; Confirmation: Confirmed ; Classification: Medical ; Code: 6507457960 ; Contributor System: PowerChart ; Last Updated: 05/24/2015 21:45 EDT ; Life Cycle Date: 05/24/2015 ; Life Cycle Status: Active ; Vocabulary: SNOMED CT Murmur (SNOMED CT :343060698 ) Name of Problem: Murmur ; Recorder: RENETTA TRAYLOR RN; Confirmation: Confirmed ; Classification: Medical ; Code: 426247424 ; Contributor System: PowerChart ; Last Updated: 12/23/2018 11:49 EST ; Life Cycle Date: 12/23/2018 ; Life Cycle Status: Active ; Vocabulary: SNOMED CT Peripheral vascular disease (SNOMED CT :6073316892 ) Name of Problem: Peripheral vascular disease ; Recorder: LILIANA CAMILO RN; Confirmation: Confirmed ; Classification: Patient Stated ; Code: 0956869852 ; Contributor System: PowerChart ; Last Updated: 04/19/2018 9:13 EDT ; Life Cycle Date: 04/19/2018 ; Life Cycle Status: Active ; Vocabulary: SNOMED CT Prediabetes (SNOMED CT :3291507829 ) Name of Problem: Prediabetes ; Recorder: QUOC HALL RN; Confirmation: Confirmed ; Classification: Medical ; Code: 0789330072 ; Contributor System: [employer]ediaChart ; Last Updated: 01/13/2020 11:12 EDT ; Life Cycle Date: 01/13/2020 ; Life Cycle Status: Active ; Vocabulary: SNOMED CT Prostatitis/ (SNOMED CT :77581459 ) Name of Problem: Prostatitis/ ; Recorder: RENETTA TRAYLOR RN; Confirmation: Confirmed ; Classification: Medical ; Code: 73544320 ; Contributor System: [employer]emediaChart ; Last Updated: 12/23/2018 11:47 EST ; Life Cycle Status: Active ; Vocabulary: SNOMED CT Renal calculus///HX (SNOMED CT :555431325 ) Name of Problem: Renal calculus///HX ; Recorder: RENETTA TRAYLOR RN; Confirmation: Confirmed ; Classification: Medical ; Code: 136679710 ; Contributor System: [employer] ; Last Updated: 12/23/2018 11:50 EST ; Life Cycle Date: 12/23/2018 ; Life Cycle Status: Active ; Vocabulary: SNOMED CT Stented coronary artery (SNOMED CT :3733599111 ) Name of Problem: Stented coronary artery ; Recorder: RENETTA TRAYLOR RN; Confirmation: Confirmed ; Classification: Medical ; Code: 5705000491 ; Contributor System: [employer] ; Last Updated: 12/23/2018 11:48 EST ; Life Cycle Date: 12/23/2018 ; Life Cycle Status: Active ; Vocabulary: SNOMED CT Diagnoses(Active) Diagnosis Type: Admitting ; Code: ICD-10-CM ; Probability: 0 ; Diagnosis Code: R20.2 Diagnosis Type: Working ; Code: ICD-10-CM ; Probability: 0 ; Diagnosis Code: R20.2 Brain TIA Date: 03/12/2020 ; Diagnosis Type: Admitting ; Confirmation: Confirmed ; Clinical Dx: Brain TIA ; Classification: Medical ; Clinical Service: Non-Specified ; Code: ICD-10-CM ; Probability: 0 ; Diagnosis Code: G45.9 Dizziness Date: 03/10/2020 ; Diagnosis Type: Reason For Visit ; Confirmation: Complaint of ; Clinical Dx: Dizziness ; Classification: Medical ; Clinical Service: Emergency medicine ; Code: PNED ; Probability: 0 ; Diagnosis Code: [id number] Left facial numbness Date: 03/10/2020 ; Diagnosis Type: Discharge ; Confirmation: Confirmed ; Clinical Dx: Left facial numbness ; Classification: Medical ; Clinical Service: Non-Specified ; Code: ICD-10-CM ; Probability: 0 ; Diagnosis Code: R20.0 Paresthesia Date: 03/10/2020 ; Diagnosis Type: Reason For Visit ; Confirmation: Complaint of ; Clinical Dx: Paresthesia ; Classification: Medical ; Clinical Service: Emergency medicine ; Code: PNED ; Probability: 0 ; Diagnosis Code: [id number] Medication List (As Of: 03/12/2020 11:58:25 EDT) Normal Order potassium chloride CR 20 mEq tab : potassium chloride CR 20 mEq tab ; Status: Ordered ; Ordered As Mnemonic: potassium chloride 20 mEq oral tablet, extended release ; Simple Display Line: 40 mEq, 2 Tab, Oral, 1-Time ; Ordering Provider: WAGNER ROJAS MD-INT; Catalog Code: potassium chloride ; Order Dt/Tm: 03/12/2020 10:04:02 EDT ; Comment: Do Not Crush or Chew potassium chloride CR 20 mEq tab : potassium chloride CR 20 mEq tab ; Status: Completed ; Ordered As Mnemonic: potassium chloride 20 mEq oral tablet, extended release ; Simple Display Line: 40 mEq, 2 Tab, Oral, 1-Time ; Ordering Provider: WAGNER ROJAS MD-INT; Catalog Code: potassium chloride ; Order Dt/Tm: 03/12/2020 07:41:08 EDT ; Comment: Do Not Crush or Chew LORazepam 2 mg/mL inj : LORazepam 2 mg/mL inj ; Status: Completed ; Ordered As Mnemonic: Ativan ; Simple Display Line: 1 mg, IV Push, 1-Time ; Ordering Provider: VIRI DAVID MD-NEU; Catalog Code: LORazepam ; Order Dt/Tm: 03/11/2020 10:31:51 EDT ; Comment: Give prior to MRI for anxiety clopidogrel 75 mg tab : clopidogrel 75 mg tab ; Status: Ordered ; Ordered As Mnemonic: Plavix ; Simple Display Line: 75 mg, Oral, Daily ; Ordering Provider: VIRI DAVID MD-NEU; Catalog Code: clopidogrel ; Order Dt/Tm: 03/11/2020 10:31:57 EDT levothyroxine 25 mcg tab : levothyroxine 25 mcg tab ; Status: Ordered ; Ordered As Mnemonic: Synthroid ; Simple Display Line: 12.5 mcg, Oral, Daily ; Ordering Provider: WAGNER ROJAS MD-INT; Catalog Code: levothyroxine ; Order Dt/Tm: 03/11/2020 10:10:46 EDT amLODIPine 10 mg tab : amLODIPine 10 mg tab ; Status: Ordered ; Ordered As Mnemonic: Norvasc ; Simple Display Line: 10 mg, Oral, Daily ; Ordering Provider: MATT MCADAMS MD-INT; Catalog Code: amLODIPine ; Order Dt/Tm: 03/11/2020 03:07:37 EDT ; Comment: Antihypertensive - Check BP- Check Pulse Sound-Alike Alert aspirin 81 mg chew tab : aspirin 81 mg chew tab ; Status: Ordered ; Ordered As Mnemonic: aspirin ; Simple Display Line: 81 mg, Oral, Daily ; Ordering Provider: MATT MCADAMS MD-INT; Catalog Code: aspirin ; Order Dt/Tm: 03/10/2020 19:44:32 EDT ; Comment: Give with Food cyanocobalamin 1,000 mcg tab : cyanocobalamin 1,000 mcg tab ; Status: Ordered ; Ordered As Mnemonic: Vitamin B12 ; Simple Display Line: 1,000 mcg, Oral, Daily ; Ordering Provider: MATT MCADAMS MD-INT; Catalog Code: cyanocobalamin ; Order Dt/Tm: 03/11/2020 03:14:07 EDT finasteride 5 mg tab : finasteride 5 mg tab ; Status: Ordered ; Ordered As Mnemonic: Proscar ; Simple Display Line: 5 mg, Oral, Daily ; Ordering Provider: MATT MCADAMS MD-INT; Catalog Code: finasteride ; Order Dt/Tm: 03/11/2020 03:08:00 EDT ; Comment: Do NOT Handle If Are/Maybe gemfibrozil 600 mg tab : gemfibrozil 600 mg tab ; Status: Ordered ; Ordered As Mnemonic: Lopid ; Simple Display Line: 600 mg, Oral, BID ; Ordering Provider: MATT MCADAMS MD-INT; Catalog Code: gemfibrozil ; Order Dt/Tm: 03/11/2020 03:08:05 EDT ; Comment: Give 30 min before meals nebivolol 10 mg tab : nebivolol 10 mg tab ; Status: Ordered ; Ordered As Mnemonic: Bystolic ; Simple Display Line: 10 mg, Oral, Daily ; Ordering Provider: MATT MCADAMS MD-INT; Catalog Code: nebivolol ; Order Dt/Tm: 03/11/2020 03:08:10 EDT ; Comment: HOLD FOR SYSTOLIC BP < 90 mmHg OR FOR HEART RATE < 50 BPM pantoprazole EC 40 mg tab : pantoprazole EC 40 mg tab ; Status: Ordered ; Ordered As Mnemonic: Protonix ; Simple Display Line: 40 mg, Oral, Daily ; Ordering Provider: MATT MCADAMS MD-INT; Catalog Code: pantoprazole ; Order Dt/Tm: 03/11/2020 03:14:33 EDT ; Comment: Do Not Crush or Chew Look-Alike/Sound-Alike Alert f/a for nexium isosorbide MONOnitrate ER 30 mg tab : isosorbide MONOnitrate ER 30 mg tab ; Status: Ordered ; Ordered As Mnemonic: isosorbide mononitrate ; Simple Display Line: 30 mg, Oral, QAM ; Ordering Provider: MATT MCADAMS MD-INT; Catalog Code: isosorbide mononitrate ; Order Dt/Tm: 03/11/2020 03:08:07 EDT ; Comment: DO NOT Crush or Chew (BUT MAY SPLIT) atorvastatin 20 mg tab : atorvastatin 20 mg tab ; Status: Ordered ; Ordered As Mnemonic: Lipitor ; Simple Display Line: 20 mg, Oral, At Bedtime ; Ordering Provider: MATT MCADAMS MD-INT; Catalog Code: atorvastatin ; Order Dt/Tm: 03/10/2020 19:44:38 EDT heparin 5,000 units/1 mL inj : heparin 5,000 units/1 mL inj ; Status: Ordered ; Ordered As Mnemonic: heparin ; Simple Display Line: 5,000 Units, SubCutaneous, [id number] ; Ordering Provider: MATT MCADAMS MD-INT; Catalog Code: heparin ; Order Dt/Tm: 03/10/2020 19:42:42 EDT ; Comment: Look-Alike/Sound-Alike Alert nicotine 21 mg/24 hr patch : nicotine 21 mg/24 hr patch ; Status: Ordered ; Ordered As Mnemonic: nicotine 21 mg/24 hr transdermal film, extended release ; Simple Display Line: 1 Patch, TransDermal, Daily ; Ordering Provider: MATT MCADAMS MD-INT; Catalog Code: nicotine ; Order Dt/Tm: 03/10/2020 19:44:44 EDT ; Comment: Remove Prior Patch before Application - REMOVE before MRI Scanning WASTE: PBKC - BLACK hydrALAZINE 20 mg/1 mL inj : hydrALAZINE 20 mg/1 mL inj ; Status: Ordered ; Ordered As Mnemonic: hydrALAZINE ; Simple Display Line: 5 mg, IV Push, Q4H, PRN: Hypertension ; Ordering Provider: MATT MCADAMS MD-INT; Catalog Code: hydrALAZINE ; Order Dt/Tm: 03/10/2020 19:45:01 EDT ; Comment: for SBP>175 or diastolic BP>105 Antihypertensive - Check BP- Check Pulse Look-Alike/Sound-Alike Alert acetaminophen 325 mg tab : acetaminophen 325 mg tab ; Status: Ordered ; Ordered As Mnemonic: Tylenol ; Simple Display Line: 650 mg, Oral, Q4H, PRN: Pain (Mild 1-3) ; Ordering Provider: MATT MCADAMS MD-INT; Catalog Code: acetaminophen ; Order Dt/Tm: 03/10/2020 19:42:41 EDT ; Comment: use as 1st line pain med; max dose of 4000 mg/day docusate sodium 100 mg cap : docusate sodium 100 mg cap ; Status: Ordered ; Ordered As Mnemonic: Colace ; Simple Display Line: 100 mg, Oral, BID, PRN: Constipation ; Ordering Provider: MATT MCADAMS MD-INT; Catalog Code: docusate ; Order Dt/Tm: 03/10/2020 19:42:41 EDT ; Comment: HOLD for loose stools morphine 2 mg/1 ml inj : morphine 2 mg/1 ml inj ; Status: Ordered ; Ordered As Mnemonic: morphine ; Simple Display Line: 2 mg, IV Push, Q2H, PRN: Pain (Severe 7-10) ; Ordering Provider: MATT MCADAMS MD-INT; Catalog Code: morphine ; Order Dt/Tm: 03/10/2020 19:42:41 EDT ; Comment: hold for Systolic BP less than 90 mmHg Use cautiously in patients at risk for sleep apnea ondansetron 4 mg/2 mL inj : ondansetron 4 mg/2 mL inj ; Status: Ordered ; Ordered As Mnemonic: Zofran ; Simple Display Line: 4 mg, IV Push, Q4H, PRN: Nausea ; Ordering Provider: MATT MCADAMS MD-INT; Catalog Code: ondansetron ; Order Dt/Tm: 03/10/2020 19:42:41 EDT ; Comment: *USE FIRST LINE ANTIEMETIC* polyethylene glycol 3350 pwd 17 g pkt : polyethylene glycol 3350 pwd 17 g pkt ; Status: Ordered ; Ordered As Mnemonic: MiraLax ; Simple Display Line: 17 Gram, Oral, Daily, PRN: Constipation ; Ordering Provider: MATT MCADAMS MD-INT; Catalog Code: polyethylene glycol 3350 ; Order Dt/Tm: 03/10/2020 19:42:42 EDT ; Comment: Give with 8 ounces of water #NaCl 0.9% *FLUSH* inj 10 mL : #NaCl 0.9% *FLUSH* inj 10 mL ; Status: Ordered ; Ordered As Mnemonic: Normal Saline Flush ; Simple Display Line: 10 mL, IV Push, See Comment, PRN: IV Use ; Ordering Provider: BIRDIE TELLEZ MD; Catalog Code: sodium chloride ; Order Dt/Tm: 03/10/2020 18:26:51 EDT Prescription/Discharge Order atorvastatin : atorvastatin ; Status: Prescribed ; Ordered As Mnemonic: Lipitor 20 mg oral tablet ; Simple Display Line: 2 Tab, Oral, At Bedtime, 60 Tab, 0 Refill(s) ; Ordering Provider: WAGNER ROJAS MD-INT; Catalog Code: atorvastatin ; Order Dt/Tm: 03/12/2020 10:14:11 EDT clopidogrel : clopidogrel ; Status: Prescribed ; Ordered As Mnemonic: Plavix 75 mg oral tablet ; Simple Display Line: 1 Tab, Oral, Daily, 30 Tab, 0 Refill(s) ; Ordering Provider: WAGNER ROJAS MD-INT; Catalog Code: clopidogrel ; Order Dt/Tm: 03/12/2020 10:14:15 EDT levothyroxine : levothyroxine ; Status: Prescribed ; Ordered As Mnemonic: Synthroid 25 mcg (0.025 mg) oral tablet ; Simple Display Line: 0.5 Tab, Oral, Daily, 15 Tab, 0 Refill(s) ; Ordering Provider: WAGNER ROJAS MD-INT; Catalog Code: levothyroxine ; Order Dt/Tm: 03/12/2020 10:14:22 EDT Home Meds esomeprazole : esomeprazole ; Status: Documented ; Ordered As Mnemonic: NexIUM 24HR 20 mg oral delayed release capsule ; Simple Display Line: Cap, Oral, Daily, 0 Refill(s) ; Catalog Code: esomeprazole ; Order Dt/Tm: 03/08/2020 10:10:20 EDT potassium chloride : potassium chloride ; Status: Documented ; Ordered As Mnemonic: potassium chloride 20 mEq oral tablet, extended release ; Simple Display Line: Tab, Oral, BID, 0 Refill(s) ; Catalog Code: potassium chloride ; Order Dt/Tm: 03/08/2020 10:15:12 EDT cyanocobalamin : cyanocobalamin ; Status: Documented ; Ordered As Mnemonic: Vitamin B12 ; Simple Display Line: 1,000 mcg, Oral, Daily, 0 Refill(s) ; Catalog Code: cyanocobalamin ; Order Dt/Tm: 01/13/2020 11:06:25 EDT cetirizine : cetirizine ; Status: Documented ; Ordered As Mnemonic: ZyrTEC ; Simple Display Line: 10 mg, Oral, Daily, PRN: as needed for allergy symptoms, 0 Refill(s) ; Catalog Code: cetirizine ; Order Dt/Tm: 12/23/2018 12:10:42 EST fluticasone nasal : fluticasone nasal ; Status: Documented ; Ordered As Mnemonic: Flonase ; Simple Display Line: 2 [place], Nasal, EveryOtherDay, PRN: Allergies, 0 Refill(s) ; Catalog Code: fluticasone nasal ; Order Dt/Tm: 12/23/2018 12:10:16 EST isosorbide mononitrate : isosorbide mononitrate ; Status: Documented ; Ordered As Mnemonic: isosorbide mononitrate ; Simple Display Line: 30 mg, Oral, QAM, 0 Refill(s) ; Catalog Code: isosorbide mononitrate ; Order Dt/Tm: 12/23/2018 11:42:43 EST psyllium : psyllium ; Status: Documented ; Ordered As Mnemonic: [place] ; Simple Display Line: Oral, EveryOtherDay, 0 Refill(s) ; Catalog Code: psyllium ; Order Dt/Tm: 11/18/2016 12:47:09 EST nitroglycerin : nitroglycerin ; Status: Documented ; Ordered As Mnemonic: Nitrostat 0.4 mg sublingual tablet ; Simple Display Line: 1 Tab, SubLINgual, Q5Min, PRN: Chest Pain ; Catalog Code: nitroglycerin ; Order Dt/Tm: 07/13/2016 15:26:07 EDT finasteride : finasteride ; Status: Documented ; Ordered As Mnemonic: Proscar ; Simple Display Line: 5 mg, Oral, Daily, 0 Refill(s) ; Catalog Code: finasteride ; Order Dt/Tm: 07/13/2016 12:55:35 EDT furosemide : furosemide ; Status: Documented ; Ordered As Mnemonic: furosemide 20 mg oral tablet ; Simple Display Line: 1 Tab, Oral, Daily, 0 Refill(s) ; Catalog Code: furosemide ; Order Dt/Tm: 10/23/2014 13:36:23 EST aspirin : aspirin ; Status: Documented ; Ordered As Mnemonic: Aspir 81 ; Simple Display Line: 81 mg, Oral, Daily, 0 Refill(s) ; Catalog Code: aspirin ; Order Dt/Tm: 07/21/2014 21:14:29 EDT amlodipine : amlodipine ; Status: Documented ; Ordered As Mnemonic: Norvasc 10 mg oral tablet ; Simple Display Line: 1 Tab, Oral, Daily, 0 Refill(s) ; Catalog Code: amLODIPine ; Order Dt/Tm: 07/21/2014 21:13:41 EDT nebivolol : nebivolol ; Status: Documented ; Ordered As Mnemonic: Bystolic 10 mg oral tablet ; Simple Display Line: 1 Tab, Oral, Daily, 0 Refill(s) ; Catalog Code: nebivolol ; Order Dt/Tm: 07/21/2014 21:13:25 EDT rosuvastatin : rosuvastatin ; Status: Discontinued ; Ordered As Mnemonic: Crestor 10 mg oral tablet ; Simple Display Line: 1 Tab, Oral, EveryOtherDay, 0 Refill(s) ; Catalog Code: rosuvastatin ; Order Dt/Tm: 07/21/2014 21:13:11 EDT gemfibrozil : gemfibrozil ; Status: Documented ; Ordered As Mnemonic: Lopid 600 mg oral tablet ; Simple Display Line: 1 Tab, Oral, BID, 0 Refill(s) ; Catalog Code: gemfibrozil ; Order Dt/Tm: 07/21/2014 21:12:57 EDT Education Topics: Stroke Education (Cushion Builder) Stroke Education Handouts Given *Q : Yes Molly Villarreal RN - 03/12/2020 11:48 EDT Ed-Other Heart Healthy Diet : Verbalizes understanding Antiplatelets/Anticoagulation : Verbalizes understanding Coronary artery disease : Verbalizes understanding Stroke pathophysiology : Verbalizes understanding Previous stroke : Verbalizes understanding Complications after a stroke : Verbalizes understanding Emotional changes after a stroke : Verbalizes understanding Driving after a stroke : Verbalizes understanding Lifestyle changes to prevent a stroke : Verbalizes understanding Weight reduction/Exercise program : Verbalizes understanding Smoking Cessation : Verbalizes understanding Hypertension : Verbalizes understanding Stroke rehab : Verbalizes understanding EMS/911 notification : Verbalizes understanding Warning signs and symptoms of stroke : Verbalizes understanding Hemorrhagic stroke : Verbalizes understanding Intravenous alteplase : Verbalizes understanding Cholesterol lowering information : Verbalizes understanding Diabetes : Verbalizes understanding Dyslipidemia : Verbalizes understanding Molly Villarreal, RN - 03/12/2020 11:48 EDT documented in this encounter Plan of Treatment Upcoming Encounters Date Type Department Care Team (Late st Contact Info) Description 03/10/2025 1:15 PM EDT Office Visit [facility] Cardiology - [place] [address] [place] [address] Tabby Mcallister PA-C [address] [address] documented as of this encounter Visit Diagnoses Not on filedocumented in this encounter Care Teams Airline Counter Agent Relationship Specialty Start Date End Date Stacy Moise PA PCP - General 03/02/23 documented as of this encounter
--- OUTSIDE RECORDS SUMMARY | 2024-09-30 17:12 | XMS_ITS | Encounter Summary ---
Author Organization [employer] Address [address] [place] [address] Care Team Providers Care Residential Finish Carpenter Name Role Phone Stacy Moise Primary Care Provider [phone] Encounter Details Date Type Department Care Team (Late st Contact Info) Description 06/13/2019 Transcribed Document [facility] [place] Family Medicine [address] [place] [address] ProviderMireya MD [facility] [place], [place] [address] Social History Tobacco Use Types Packs/Day Years Used Date Smoking Tobacco: Never Assessed Sex and Gender Information Value Date Recorded Sex Assigned at Not on file Legal Sex Male 5:25 PM CDT Gender Identity Not on file Sexual Orientation Not on file documented as of this encounter Miscellaneous Notes * Cerner Conversion Note - Mireya Osuna MD - 06/13/2019 4:54 PM CDT Stroke/Warfarin Instructions Entered On: 06/13/2019 16:55 EDT Performed On: 06/13/2019 16:54 EDT by DANDY AVILA RN Stroke/Warfarin Instructions Stroke/TIA Discharge Ins : Open Warfarin Discharge Ins : N/A DANDY AVILA RN - 06/13/2019 16:54 EDT Stroke/TIA Discharge Instructions Individualized Stroke Risk Factors *Q : Hypertension/High blood pressure, Peripheral vascular disease Stroke Education Handouts Given *Q : Yes DANDY AVILA RN - 06/13/2019 16:54 EDT Stroke Education Materials Given-Grid Activation of EMS *Q : Verbalizes understanding Follow-up Care After Discharge *Q : Verbalizes understanding Medications prescribed at DC *Q : Verbalizes understanding Risk Factors for Stroke *Q : Verbalizes understanding Warning S&S of Stroke *Q : Verbalizes understanding DANDY AVILA RN - 06/13/2019 16:54 EDT Stroke/TIA Signs/Symptoms to Report Immediately : Sudden onset difficulty speaking, Sudden onset difficulty understanding speech, Sudden onset change in vision, Sudden onset weakness particulary on one side of the body, Sudden onset numbness/tingling, Sudden severe headache, Sudden dizziness or trouble with gait, Call 9-1-1: EMS activation is crucial My LDL Level: : LDL Level No qualifying data available. DANDY AVILA RN - 06/13/2019 16:54 EDT Electronically signed by [facility] Conversion Supervisor [employer] Cerner at 02/16/2023 4:10 PM CDT documented in this encounter Plan of Treatment Upcoming Encounters Date Type Department Care Team (Late st Contact Info) Description 03/10/2025 1:15 PM EDT Office Visit [facility] Cardiology - [place] [address] [place] [address] Tabby Mcallister PA-C [address] [address] documented as of this encounter Visit Diagnoses Not on filedocumented in this encounter Care Teams Residential Finish Carpenter Relationship Specialty Start Date End Date Stacy Moise PA PCP - General 03/02/23 documented as of this encounter
--- OUTSIDE RECORDS SUMMARY | 2024-09-30 17:12 | XMS_ITS | Encounter Summary ---
Author Organization [employer] Address [address] [address] Care Team Providers Care Redipper Name Role Phone Stacy Moise Primary Care Provider [phone] Encounter Details Date Type Department Care Team (Late st Contact Info) Description 03/10/2020 Transcribed Document [facility] [place] [facility] [place] [address] ProviderMireya MD [address] [place] [id number] Social History Tobacco Use Types Packs/Day Years Used Date Smoking Tobacco: Never Assessed Sex and Gender Information Value Date Recorded Sex Assigned at Not on file Legal Sex Male 5:25 PM CDT Gender Identity Not on file Sexual Orientation Not on file documented as of this encounter Miscellaneous Notes * Cerner Conversion Note - Mireya ProviderMD - 03/10/2020 7:42 PM CDT Education-Diabetes Topics Entered On: 03/11/2020 1:31 EDT Performed On: 03/11/2020 0:10 EDT by JOHNSON JACKMAN RN Teaching/Learning Assessment Barriers To Learning : None evident Learning Style Preferences Patient : Verbal explanation Learning Style Preferences Family : Verbal explanation JOHNSON JACKMAN RN - 03/11/2020 1:30 EDT Education, Diabetes Diabetes Education Grid Blood Glucose Monitoring : Verbalizes understanding Disease Process : Verbalizes understanding Infection Control : Verbalizes understanding JOHNSON JACKMAN RN - 03/11/2020 1:30 EDT Education, IP Diabetes Diabetes Inpatient Education Grid Pre-Diabetes : Verbalizes understanding JOHNSON JACKMAN RN - 03/11/2020 1:30 EDT inpatient diabetes education grid Monitoring Diabetes : Verbalizes understanding Smoking Cessation : Verbalizes understanding JOHNSON JACKMAN RN - 03/11/2020 1:30 EDT Education, Foot Care Asthma Education Grid Infection Control : Verbalizes understanding Inspection : Verbalizes understanding JOHNSON JACKMAN RN - 03/11/2020 1:30 EDT Electronically signed by [facility] Conversion Manager Merchandise Cerner at 02/16/2023 3:58 PM CDT documented in this encounter Plan of Treatment Upcoming Encounters Date Type Department Care Team (Late st Contact Info) Description 03/10/2025 1:15 PM EDT Office Visit [facility] Cardiology - [place] [address] [place] [address] Tabby Mcallister PA-C [address] [address] documented as of this encounter Visit Diagnoses Not on filedocumented in this encounter Care Teams Redipper Relationship Specialty Start Date End Date Stacy Moise PA PCP - General 03/02/23 documented as of this encounter
--- OUTSIDE RECORDS SUMMARY | 2024-09-30 17:12 | XMS_ITS | Encounter Summary ---
Author Organization [employer] Address [address] [place] [address] Care Team Providers Care Security Ambassador Name Role Phone Stacy Moise Primary Care Provider [phone] Encounter Details Date Type Department Care Team (Late st Contact Info) Description 06/13/2019 Transcribed Document [facility] [place] Family Medicine [address] [place] [address] ProviderMireya MD [address] [place] [id number] Social History Tobacco Use Types Packs/Day Years Used Date Smoking Tobacco: Never Assessed Sex and Gender Information Value Date Recorded Sex Assigned at Not on file Legal Sex Male 5:25 PM CDT Gender Identity Not on file Sexual Orientation Not on file documented as of this encounter Miscellaneous Notes * Cerner Conversion Note - Historical ProviderMD - 06/13/2019 12:46 PM CDT PAT Adult Entered On: 06/13/2019 12:48 EDT Performed On: 06/13/2019 12:46 EDT by ALFREDA CASTILLO Height and Weight, Clinical Dosing Height Source : Measured Height Entry Format : [place] Height, Feet : 5 ft(Converted to: 152 cm, 60 Inch) Height, Inches : 9 Inch(Converted to: 0 ft 9 Inch, 22.86 cm) Clinical Height : 175.26 cm Weight Source : Standing scale Weight Entry Format : [place] Clinical Dosing Weight : 76.36 kg Weight, Pounds : 168 lb Body Surface Area (BSA) : 1.92 m2 Body Mass Index : 24.9 kg/m2 (HI) [place] Body Weight : 70 kg ALFREDA CASTILLO 06/13/2019 12:46 EDT Health Histories Smoking Status : 5-9 cigarettes (between 1/4 to 1/2 pack)/day in last 30 days Smokeless Tobacco Status : Never Desires Tobacco Cessation Medication : No Reason for No Tobacco Cessation Medication : Refuses FDA approved medications ALFREDA CASTILLO 06/13/2019 12:46 EDT Social History (As Of: 06/13/2019 12:48:35 EDT) Tobacco: Smoking Status Current every day smoker. Years of Use: 55. Packs/Tins Daily: 1. (Last Updated: 11/18/2016 12:55:33 EST by LILIANA CAMILO RN) Alcohol: Alcohol Use History Yes. Alcohol Use Frequency Rarely. (Last Updated: 11/18/2016 12:56:54 EST by LILIANA CAMILO RN) Substance Abuse: Drug Use Hx: No. Use in Last 12 Months: No. (Last Updated: 12/23/2018 11:55:19 EST by RENETTA TRAYLOR RN) Home/Environment: Lives with Spouse. Living situation: Home/Independent. (Last Updated: 07/21/2014 22:40:52 EDT by SON DUMONT PA-C) Infectious Disease History Fever/Chills Last 48 Hours : No Travel To Regions with Travel Advisories : No Travel Outside [place] Within Last 30 Days : No Contact With Traveler to Advisory Region : No Tuberculosis Symptoms : None ALFREDA CASTILLO 06/13/2019 12:52 EDT Infectious Disease History : Chicken pox/Shingles, Measles, Mumps, Pertussis (Whooping cough) ALFREDA CASTILLO 06/13/2019 12:46 EDT Anesthesia/Transfusion History Family History of Anesthesia Reaction : No prior transfusion(s) Blood Transfusion Acceptable to Patient : Yes Transfusion History : Prior anesthesia without reaction Family History of Anesthesia Reaction : None ALFREDA CASTILLO 06/13/2019 12:52 EDT Functional Assessment Functional ADL Evaluation Index EBN Bathing : Independent (2) Dressing : Independent (2) Toileting : Independent (2) Transferring Bed or Chair : Independent (2) Continence : Independent (2) Feeding : Independent (2) ALFREDA CASTILLO 06/13/2019 12:52 EDT ADL Index Score : 12 ANNA, ALFREDA 06/13/2019 12:52 EDT Advance Directive Patient has Advance Directive *Q : No, patient refuses Advance Directive information ANNA ALFREDA 06/13/2019 12:52 EDT Spiritual/Cultural Needs Any Spiritual/Cultural Needs or Requests : No ALFREDA CASTILLO 06/13/2019 12:52 EDT Psychosocial History Do You Have a History of the Following? : Patient denies history Currently in Unsafe Situation : No Tried to Harm Yourself in the Past? : No Thoughts of Harming/Killing Yourself : No ALFREDA CASTILLO 06/13/2019 12:52 EDT Teaching/Learning Assessment Barriers To Learning : None evident Readiness to Learn : Cooperative Learning Style Preferences Patient : Verbal explanation ALFREDA CASTILLO 06/13/2019 12:52 EDT General Info Preferred Name : scottie Arrived From : Home Mode of Arrival on Unit : Ambulatory Legal Guardian : Spouse Support Person/Pt Rep Contact Information : tony el [phone] Want Family/Rep/Phys Notified of Admit : No Emergency Contact #1 : - Emergency Contact #1 Phone Number : - Emergency Contact #1 Relationship : - Emergency Contact #2 : - Emergency Contact #2 Phone Number : - Emergency Contact #2 Relationship : - Primary Language : Kenyan Preferred Communication Mode : Verbal Communication Barrier : Other: hard of hearing ALFREDA CASTILLO 06/13/2019 12:52 EDT Reed Scale Reed Sensory Perception : No impairment Reed Moisture : Rarely moist Reed Activity : Walks frequently Reed Mobility : No limitation Reed Nutrition : Excellent Reed Friction and Shear : No apparent problem Reed Score : 23 ALFREDA CASTILLO 06/13/2019 12:52 EDT Sleep Apnea Risk Assmt Hx of [...] Sleep Apnea Risk Level Score : 4 ALFREDA CASTILLO 06/13/2019 12:52 EDT documented in this encounter Plan of Treatment Upcoming Encounters Date Type Department Care Team (Late st Contact Info) Description 03/10/2025 1:15 PM EDT Office Visit [facility] Cardiology - [place] [address] [place] [address] Tabby Mcallister PA-C [address] [facility] [address] [place] [address] documented as of this encounter Visit Diagnoses Not on filedocumented in this encounter Care Teams Security Ambassador Relationship Specialty Start Date End Date Stacy Moise PA PCP - General 03/02/23 documented as of this encounter
--- OUTSIDE RECORDS SUMMARY | 2024-09-30 17:12 | XMS_ITS | Encounter Summary ---
Author Organization [employer] Address [address] [place] [address] Care Team Providers Care Poker Supervisor Name Role Phone Stacy Moise Primary Care Provider [phone] Encounter Details Date Type Department Care Team (Late st Contact Info) Description 03/08/2020 Transcribed Document [facility] [place] [facility] [address] ProviderMireya MD [address] [place] [address] [id number] Social History Tobacco Use Types Packs/Day Years Used Date Smoking Tobacco: Never Assessed Sex and Gender Information Value Date Recorded Sex Assigned at Not on file Legal Sex Male 5:25 PM CDT Gender Identity Not on file Sexual Orientation Not on file documented as of this encounter Miscellaneous Notes * Cerner Conversion Note - Mireya Osuna MD - 03/08/2020 11:15 AM CDT DATE OF SERVICE: 03/08/2020 PRIMARY CARE PHYSICIAN: Christiano May MD. PROCEDURES PERFORMED: 1. Right and left coronary angiogram. 2. Left heart catheterization. 3. Left ventricular angiogram. INDICATIONS: 1. Recurrent chest pain. 2. [place] vessel coronary artery disease with multiple PCIs. 3. Peripheral vascular disease. 4. Tobacco abuse. 5. Hypertension. DESCRIPTION OF PROCEDURE: After having obtained written consent, the patient was brought to cardiac catheterization laboratory in a fasting condition. Right wrist was prepped and draped. 2% lidocaine was injected for local anesthesia. The right radial artery was accessed, and a 6-Chadian sheath was placed in and secured. The patient was given 3000 units of heparin. The radial sheath was placed. The patient was given 5000 units of heparin and 300 mcg of nitroglycerin through the radial sheath. We used a 5-Chadian TIG catheter, through which a right coronary angiogram, left coronary angiogram, LV pressures, and LV angiogram were obtained. On completion of procedure, all catheters were removed. TR band was applied to the right wrist. The patient tolerated the procedure well with no complications. HEMODYNAMICS: Initial aortic pressure was 120/61, mean of . LV pressure was 116/15, with LVEDP of 15. QUANTITATIVE ANGIOGRAPHY: LV function appeared to be normal. Ejection fraction 60%. No significant wall motion abnormality noted. No gradient across the aortic valve on pullback. CORONARY ANGIOGRAPHY: 1. Left main coronary artery is a large vessel, bifurcates into the left anterior descending artery and left circumflex artery. 2. Left anterior descending artery is a large vessel, tapers around the apex, gives off a second diagonal branch and several septal branches. There is a stent in the mid LAD, which is patent. 3. Left circumflex artery is a large dominant vessel, gives off OM1, gives of the PLV and PDA branch. There is a stent in the distal circumflex artery, which extends into the PDA, which is widely patent. The right coronary artery is a small nondominant vessel. There is a stent in the proximal to mid segment, which is patent. IMPRESSION: The patient is a 74-year-old male with complaints of recurrent chest pain with history of coronary artery disease with multiple percutaneous coronary interventions and multiple risk factors. FINDINGS: 1. Patent stents in the LAD, left circumflex artery, and right coronary artery. 2. LV function normal. Ejection fraction 60% with normal resting hemodynamics. PLAN OF ACTION: We will continue with medical management and risk factor modification. /[id number] Chico Coffman MD SR/MIKEL / / MODL /[id number] documented in this encounter Plan of Treatment Upcoming Encounters Date Type Department Care Team (Late st Contact Info) Description 03/10/2025 1:15 PM EDT Office Visit [facility] Cardiology - [place] [address] [place] [address] Tabby Mcallister PA-Yuliana [address] [facility] [address] [place] [address] documented as of this encounter Visit Diagnoses Not on filedocumented in this encounter Care Teams Poker Supervisor Relationship Specialty Start Date End Date Stacy Moise PA PCP - General 03/02/23 documented as of this encounter
--- OUTSIDE RECORDS SUMMARY | 2024-09-30 17:12 | XMS_ITS | Encounter Summary ---
Author Organization [employer] Address [address] [place] [address] Care Team Providers Care Roll Press Operator Name Role Phone Stacy Moise Primary Care Provider [phone] Encounter Details Date Type Department Care Team (Late st Contact Info) Description 03/10/2020 Transcribed Document [facility] [place] [facility] [place] [address] ProviderMireya MD [address] [place] [id number] Social History Tobacco Use Types Packs/Day Years Used Date Smoking Tobacco: Never Assessed Sex and Gender Information Value Date Recorded Sex Assigned at Not on file Legal Sex Male 5:25 PM CDT Gender Identity Not on file Sexual Orientation Not on file documented as of this encounter Miscellaneous Notes * Cerner Conversion Note - Mireya Osuna MD - 03/10/2020 6:37 PM CDT Rapid Response Team Documentation Entered On: 03/10/2020 18:40 EDT Performed On: 03/10/2020 18:37 EDT by ONEIL YIP RN Rapid Response Event Time Rapid Response Team Called : 03/10/2020 18:31 EDT Rapid Response Team Arrival Time : 03/10/2020 18:32 EDT Rapid Response Event Intiated By : Other: ed 8 Rapid Response Admission Diagnosis : No qualifying admission diagnosis Rapid Response Medical Background : Anemia (hx of) (Medical) Angina (hx of, Last had in 2017) (Medical) Aortic valve disease (Medical) Arthritis (Medical) At risk for sleep apnea (Medical) Back pain (Medical) CAD (coronary artery disease) (Medical) Cervical spinal stenosis (Medical) Claudication (Medical) Colorectal surgery (Medical) Disorder of prostate (Patient Stated) Diverticulitis///HX (Medical) Dizzy spells (occasional) (Medical) Fatty liver (Medical) GERD - Gastro-esophageal reflux disease (Medical) HTN (hypertension) (Medical) Hard of hearing (Patient Stated) Has been smoking for 30 years (Patient Stated) High cholesterol (Medical) Murmur (Medical) Peripheral vascular disease (Patient Stated) Prediabetes (Medical) Prostatitis///12/2018 (Medical) Renal calculus///HX (Medical) Stented coronary artery (Medical) Rapid Response Allergies : Substance Category Reactions Severity No Known Medication Allergies Drug Rapid Response Recent Vital Signs : No qualifying vital signs last 12 hrs Rapid Response Recent Lab Results : No qualifying labs Weight/BMI : No qualifying data available. Code Status Pre Event : Full Code Code Status Post Event : Full Code Procedure w/Anesthesia 24 Hr Prior Event : No Patient Condition at End of Event : No S/S of Acute Distress Patient Disposition Post Event : No change in location/level of care Rapid Response Roll Press Operator #2 : BIRDIE TELLEZ MD OWENS, ROGER, RN - 03/10/2020 18:37 EDT Rapid Response Systems Assessment [place] Best Motor Response : Obey commands Zoë Best Verbal Response : Oriented [place] Eye Opening Response : Spontaneous [place] Coma Score : 15 Level of Consciousness : Alert, Awake Orientation : Oriented x 4 Affect/Behavior : Appropriate Pupils Equal, Round, Reactive to Light : Yes Pupil Size, Left : 3 mm Pupil Size, Right : 3 mm Last Known Well Actual Date/Time : 03/10/2020 16:00 EDT Last Known Well Details *Q : Last known well actual date/time ONEIL YIP RN - 03/10/2020 18:37 EDT NIH Stroke Scale *Q NIH Assessment Interval : Baseline Time of Assessment : 03/10/2020 18:34 EDT NIH Clinician Administering Scale : ONEIL YIP RN NIH Level of Consciousness (1A) : Alert [...] No abnormality NIH Scale Score : 0 ONEIL YIP, RN - 03/10/2020 18:37 EDT Electronically signed by [facility] Conversion Wood [employer] Cerner at 02/16/2023 3:55 PM CDT documented in this encounter Plan of Treatment Upcoming Encounters Date Type Department Care Team (Late st Contact Info) Description 03/10/2025 1:15 PM EDT Office Visit [facility] Cardiology - [place] [address] [place] [address] Tabby Mcallister PA-Yuliana [address] [address] documented as of this encounter Visit Diagnoses Not on filedocumented in this encounter Care Teams Roll Press Operator Relationship Specialty Start Date End Date Stacy Moise PA PCP - General 03/02/23 documented as of this encounter
--- OUTSIDE RECORDS SUMMARY | 2024-09-30 17:12 | XMS_ITS | Encounter Summary ---
Author Organization [employer] Address [address] [place] [address] Care Team Providers Care Turbine Attendant Name Role Phone Stacy Moise Primary Care Provider [phone] Encounter Details Date Type Department Care Team (Late st Contact Info) Description 06/13/2019 Transcribed Document [facility] Radiology 1 [place] [address] Royal Carrasco MD [address] [place] [id number] Social History Tobacco Use Types Packs/Day Years Used Date Smoking Tobacco: Never Assessed Sex and Gender Information Value Date Recorded Sex Assigned at Not on file Legal Sex Male 5:25 PM CDT Gender Identity Not on file Sexual Orientation Not on file documented as of this encounter Miscellaneous Notes * Cerner Conversion Note - Royal Carrasco MD - 06/13/2019 4:58 PM EDT DATE OF PROCEDURE:06/13/2019 PREOPERATIVE DIAGNOSIS(ES): Peripheral vascular disease, left hip and calf claudication. POSTOPERATIVE DIAGNOSIS(ES): Peripheral vascular disease, left hip and calf claudication. PROCEDURE: 1. Ultrasound-guided right femoral arterial access. 2. Abdominal aortogram with lower extremity runoff bilaterally. 3. Left common iliac artery covered stent placement. SURGEON: Attending: Royal Carrasco MD INDICATION: Patient is a 73-year-old male with ongoing tobacco use, who presents with debilitating left calf and left leg claudication. He has been evaluated by Neurosurgery for potential source of neurogenic pain. He has returned following abnormal vascular studies consistent with left-sided inflow and left popliteal artery stenosis. He has been successful in smoking cessation. He has been offered arteriogram for further evaluation and treatment. OPERATIVE FINDINGS: 1. Ultrasound-guided right femoral access with imaging documented within the chart. 2. Aortogram demonstrating mildly ectatic infrarenal aorta. The left common iliac artery had pre-existing stent with dense calcification within the distal stent, estimated greater than 80% stenosis. There was also a dissection behind the pre-existing stent with abnormal flow lumen present. 3. No significant right common or external iliac artery stenosis. 4. Patent superficial femoral arteries bilaterally with estimated stenosis less than 50%. 5. Tibial runoff seen with predominance of posterior tibial bilaterally. Peroneal was patent. The anterior tibial artery has sluggish flow bilaterally. 6. Multiple metallic pellets were present within the left leg which did not appear to be within the lumen of the vessel. OPERATIVE DESCRIPTION: Patient was taken back to the operating room, placed in supine position on operative table. Following IV sedation, bilateral groins were widely prepped and draped in standard sterile fashion. IV antibiotics were administered. Under ultrasound guidance, right common femoral artery was accessed with imaging documented within the chart. A 5-Palauan sheath was placed. A flush catheter was advanced within the aorta. Aortography was performed. The iliac vessels were not well visualized due to presence of posterior metallic hardware. An oblique view was obtained demonstrating there was presence of a left common iliac artery stent with distal in-stent stenosis and dissection outside the lumen of the stent. Runoff was also obtained with a pigtail catheter placed within the aortic bifurcation. His both lower extremities were evaluated. Patient had findings of mild stenosis involving the superficial femoral artery bilaterally. Tibial vessels were patent with runoff seen through the posterior tibial artery bilaterally. Systemic heparinization was performed. A 7-Palauan sheath was advanced over the aortic bifurcation. The left common iliac artery was again re-evaluated confirming findings of distal in-stent stenosis at the level of the internal and external junction. A 9 x 37 LifeStream stent was deployed across the left common iliac artery. This was a covered stent which was successful in treating the stenosis as well as excluding the prior dissection flap behind the pre-existing stent. Excellent results were achieved. Improved flow seen within the external and internal iliac arteries. The catheter was next advanced down to the left lower extremity at the level of the femoral artery. The left popliteal metallic hardware which were small pellets were evaluated with multiple projections. They did not appear to be intraluminal. Runoff was maintained through the posterior tibial artery. Sheath was removed. At this point, Mynx closure device was used. Patient was then taken back to Recovery in stable condition. There were no immediate complications. Royal Carrasco M.D. Dict: 06/13/2019 15:58:16 Trans: 06/13/2019 19:53:27 CC1: Royal Carrasco M.D. documented in this encounter Plan of Treatment Upcoming Encounters Date Type Department Care Team (Late st Contact Info) Description 03/10/2025 1:15 PM EDT Office Visit [facility] Cardiology - [place] [address] [place] [address] Tabby Mcallister PA-C [address] [facility] [address] [place] [address] documented as of this encounter Visit Diagnoses Not on filedocumented in this encounter Care Teams Turbine Attendant Relationship Specialty Start Date End Date Stacy Moise PA PCP - General 03/02/23 documented as of this encounter
--- OUTSIDE RECORDS SUMMARY | 2024-09-30 17:12 | XMS_ITS | Encounter Summary ---
Author Organization [employer] Address [address] [facility] [place] [address] Care Team Providers Care Set Up Mold Technician Name Role Phone Stacy Moise Primary Care Provider [phone] Encounter Details Date Type Department Care Team (Late st Contact Info) Description 03/08/2020 Transcribed Document [facility] [place] [place] [address] ProviderMireya MD [address] [place] [id number] Social History Tobacco Use Types Packs/Day Years Used Date Smoking Tobacco: Never Assessed Sex and Gender Information Value Date Recorded Sex Assigned at Not on file Legal Sex Male 5:25 PM CDT Gender Identity Not on file Sexual Orientation Not on file documented as of this encounter Miscellaneous Notes * Cerner Conversion Note - Mireya ProviderMD - 03/08/2020 11:47 AM CDT Nursing Discharge Summary Entered On: 03/08/2020 11:47 EDT Performed On: 03/08/2020 11:47 EDT by Nieves Fraga Registered Nurse Discharge Documentation Discharge Date/Time : 03/08/2020 14:30 EDT Nieves Fraga Registered Nurse - 03/08/2020 15:04 EDT Patient Disposition, General : Discharge Discharge [...] : Yes Teaching Method : Explanation, Printed materials, Teach back method Teaching Evaluation : Verbalizes understanding Nieves Fraga, Registered Nurse - 03/08/2020 11:47 EDT documented in this encounter Plan of Treatment Upcoming Encounters Date Type Department Care Team (Late st Contact Info) Description 03/10/2025 1:15 PM EDT Office Visit [facility] Cardiology - [place] [address] [place] [address] Tabby Mcallister PA-C [address] [facility] [address] [place] [address] documented as of this encounter Visit Diagnoses Not on filedocumented in this encounter Care Teams Set Up Mold Technician Relationship Specialty Start Date End Date Stacy Moise PA PCP - General 03/02/23 documented as of this encounter
--- OUTSIDE RECORDS SUMMARY | 2024-09-30 17:12 | XMS_ITS | Encounter Summary ---
Author Organization [employer] Address [address] [facility] [facility] [place] [address] Care Team Providers Care Animal Shelter Clerk Name Role Phone Stacy Moise Primary Care Provider [phone] Encounter Details Date Type Department Care Team (Late st Contact Info) Description 03/10/2020 Transcribed Document [facility] [place] [facility] [place] [address] ProviderMireya MD [address] [place] [id number] Social History Tobacco Use Types Packs/Day Years Used Date Smoking Tobacco: Never Assessed Sex and Gender Information Value Date Recorded Sex Assigned at Not on file Legal Sex Male 5:25 PM CDT Gender Identity Not on file Sexual Orientation Not on file documented as of this encounter Miscellaneous Notes * Cerner Conversion Note - Mireya ProviderMD - 03/10/2020 7:42 PM CDT Pain Assessment Entered On: 03/11/2020 10:57 EDT Performed On: 03/11/2020 7:37 EDT by Alicia Portillo RN Intervention Information: acetaminophen Performed by JOHNSON JACKMAN RN on 03/11/2020 06:37:00 EDT acetaminophen,650mg Oral,Pain (Mild 1-3) Pain Assessment Pain Scale Goal : 4 Pain Scale Used : FACES Alicia Portillo RN - 03/11/2020 10:57 EDT Pain Scale Intensity : 2 Alicia Portillo RN - 03/11/2020 10:57 EDT Image 4 - Images currently included in the form version of this document have not been included in the text rendition version of the form. Electronically signed by Juarez [facility] Conversion Assistant Cross Country Coach Cerner at 02/16/2023 3:45 PM CDT documented in this encounter Plan of Treatment Upcoming Encounters Date Type Department Care Team (Late st Contact Info) Description 03/10/2025 1:15 PM EDT Office Visit [facility] Cardiology - [place] [address] [place] [address] Tabby Mcallister PA-C [address] [facility] [address] [place] [address] documented as of this encounter Visit Diagnoses Not on filedocumented in this encounter Care Teams Animal Shelter Clerk Relationship Specialty Start Date End Date Stacy Moise PA PCP - General 03/02/23 documented as of this encounter
--- OUTSIDE RECORDS SUMMARY | 2024-09-30 17:12 | XMS_ITS | Encounter Summary ---
Author Organization [employer] Address [address] [facility] [address] Care Team Providers Care Grinder Carbon Plant Name Role Phone Stacy Moise Primary Care Provider [phone] Encounter Details Date Type Department Care Team (Late st Contact Info) Description 03/10/2020 Transcribed Document [facility] [place] Family Medicine [facility] [place] [address] ProviderMireya MD [address] [place] [address] Social History Tobacco Use Types Packs/Day Years Used Date Smoking Tobacco: Never Assessed Sex and Gender Information Value Date Recorded Sex Assigned at Not on file Legal Sex Male 5:25 PM CDT Gender Identity Not on file Sexual Orientation Not on file documented as of this encounter Miscellaneous Notes * Cerner Conversion Note - Mireya Osuna MD - 03/10/2020 7:44 PM CDT Swallow Evaluation Entered On: 03/11/2020 10:18 EDT Performed On: 03/11/2020 10:14 EDT by LOUIE CORDERO, ORNAMENTAL METAL WORKER HELPER General Information Visit Type, ORNAMENTAL METAL WORKER HELPER : Initial evaluation Patient Orders : Consult to Speech Language Pathology for Swallow Eval -111 Start: 03/10/20 19:44:00 EDT, Routine, For Swallow Eval and Treat - MATT MCADAMS MD-INT Ordering Provider : MATT MCADAMS MD-INT Admission Date : Admission Date/Time: 03/10/20 19:01:00 Medical Chart Reviewed, ORNAMENTAL METAL WORKER HELPER : Yes Personal Devices : Personal Devices No Devices Recorded Assistive Devices : Assistive Devices No Devices Recorded Active Diagnoses : 03/10/2020 12:00 Anesthesia of skin 03/10/2020 12:00 Dizziness 03/10/2020 12:00 Paresthesia Therapy Diagnosis, ORNAMENTAL METAL WORKER HELPER : oropharyngeal swallow seemingly within functional limits Recs: Regular diet, thin liqudis, meds whole as able. Previous Speech/Language Evaluations : None in EMR Previous Swallow Precautions : None in EMR Previous Cognitive Evaluations : None in EMR Diet/Intake Prior to Current Admission : Assume regular/thin Diet/Intake During Current Admission : Regular/thin Intubation Comment, ORNAMENTAL METAL WORKER HELPER : No intubation on this admit Vital Signs RTF : Vitals Temp BP Pulse RR SpO2 FIO2 Date Wt(kg) Wt(lb) 03/11 06:29 ---- 136/82 --- 18 --- --- 03/10 77.3 170 03/11 03:20 ---- 155/96 --- 16 96 --- 03/10 77.3 170 03/11 00:00 ---- 141/78 --- 18 96 --- 03/10 23:35 ---- 163/72 --- 18 97 --- 03/10 23:24 ---- ----- 56 -- --- --- 24 Hr Tmax: No Data Available 36 Hr Tmax: No Data Available Vital Signs are the last 5 in the past 48 hours. Weights display the last 5 within 7 days. Initial Wt: 03/10 77.3 kg 170 lb Respiratory Assessment Comment : Room air LOUIE CORDERO SLP - 03/11/2020 10:14 EDT General Status Patient Received Status, ORNAMENTAL METAL WORKER HELPER : Sitting edge of bed Patient Left Status, ORNAMENTAL METAL WORKER HELPER : Sitting edge of bed LOUEI CORDERO SLP - 03/11/2020 10:14 EDT Pain Assessment Pain Scaled Used : FACES Duration : 0 LOUIE CORDERO SLP - 03/11/2020 10:14 EDT Image 1 - Images currently included in the form version of this document have not been included in the text rendition version of the form. Oral Mechanism Dysarthria : No Resonance Types : Appropriate Oral Mechanism for Daily Living : Intact ORNAMENTAL METAL WORKER HELPER Cough : Strong Facial Appearance: : Symmetrical Labial Appearance : Symmetrical Labial Function : All function intact Dental/Orthodontia : Teeth, own Condition of Dentition : Intact Lingual Appearance : Symmetrical Lingual Function : All function intact Soft Palate (Velum) Appearance : Symmetrical Soft Palate Function : Function intact CONSUELO, LOUIE M, ORNAMENTAL METAL WORKER HELPER - 03/11/2020 10:14 EDT Bedside Swallow Swallow Outcome BS Swallow : Intact Head Control BS Swallow : Neutral head position Presentation Style BS Swallow : Self Swallow Position BS Swallow : Upright 90 degrees Trunk Control BS Swallow : Upright centered position Consistencies Trialed BS Swallow : Thin by straw, Regular solids LOUIE CORDERO SLP - 03/11/2020 10:14 EDT Swallow Impressions Impressions, BS Swallow : No evidence of dysphagia present Swallowing Outcome Measures : Functional Oral Intake Scale (FOIS) Functional Oral Intake Scale (FOIS) : Level VII Bedside Swallow Overall Impressions : Patient is a 74 year old male admitted for stroke concerns due to dizziness and left side numbness. Patient denied speech changes and no speech/language concerns noted by ORNAMENTAL METAL WORKER HELPER during dysphagia eval. Patient reported no difficulty with current diet. No overt signs or symptoms of aspiration noted w/thin or solid; patient completed 3 oz water test without difficulty. Oral phase appeared timely w/cracker and no oral residue observed. Recommend continue regular diet and thin liquids, meds whole as able w/thin. No deficits to warrant skilled services, ORNAMENTAL METAL WORKER HELPER will sign off. LOUIE CORDERO SLP - 03/11/2020 10:14 EDT Swallow Recommendations Recommended Diet Type, SwRec : Regular Recommended Liquid Diet, SwRec : Thin Feeding Presentation Style, SwRec : No restrictions Swallow Position, SwRec : Upright 90 degrees Recommended Med Present, SwRec : Whole, With thin liquid LOUIE CORDERO SLP - 03/11/2020 10:14 EDT Therapy Indication Assessment ORNAMENTAL METAL WORKER HELPER Indicated : No ORNAMENTAL METAL WORKER HELPER Not Indicated : At prior level of function, No skilled services indicated LOUIE CORDERO SLP - 03/11/2020 10:14 EDT Education Barriers To Learning : None evident Individuals Taught : Patient Readiness to Learn : Cooperative Readiness to Learn : Explanation LOUIE CORDERO SLP - 03/11/2020 10:14 EDT ORNAMENTAL METAL WORKER HELPER Education Assessment Grid 1 Diet Recommendation : Verbalizes understanding LOUIE CORDERO SLP - 03/11/2020 10:[address] [facility] ORNAMENTAL METAL WORKER HELPER Charges Evaluation Swallowing Function : 1 LOUIE CORDERO SLP - 03/11/2020 10:14 EDT Electronically signed by Juarez [facility] Conversion Oracle Database Architect Cerner at 02/16/2023 3:54 PM CDT documented in this encounter Plan of Treatment Upcoming Encounters Date Type Department Care Team (Late st Contact Info) Description 03/10/2025 1:15 PM EDT Office Visit [facility] Cardiology - [place] [address] [place] [address] Tabby Mcallister PA-C 227 [facility] [address] [place] [address] documented as of this encounter Visit Diagnoses Not on filedocumented in this encounter Care Teams Grinder Carbon Plant Relationship Specialty Start Date End Date Stacy Moise PA PCP - General 03/02/23 documented as of this encounter
--- OUTSIDE RECORDS SUMMARY | 2024-09-30 17:12 | XMS_ITS | Encounter Summary ---
Author Organization [employer] Address [address] [place] [address] Care Team Providers Care Glassblower Name Role Phone Stacy Moise Primary Care Provider [phone] Encounter Details Date Type Department Care Team (Late st Contact Info) Description 01/17/2020 Transcribed Document [facility] [address] [facility] [address] [place] [address] Leroy Wagner MD [address] [place] [address] [address] [place] [address] Social History Tobacco Use Types Packs/Day Years Used Date Smoking Tobacco: Never Assessed Sex and Gender Information Value Date Recorded Sex Assigned at Not on file Legal Sex Male 5:25 PM CDT Gender Identity Not on file Sexual Orientation Not on file documented as of this encounter Miscellaneous Notes * Cerner Conversion Note - Leroy Wagner MD - 01/17/2020 1:11 PM EDT DATE OF PROCEDURE: 01/17/2020 SURGEON: Leroy Wagner MD PRIMARY CARE PHYSICIAN: Leonard Shahid PA-C PREOPERATIVE DIAGNOSES: 1. C5-6 disk osteophyte complex. 2. Auto fusion at C6-7. POSTOPERATIVE DIAGNOSES: 1. C5-6 disk osteophyte complex. 2. Auto fusion at C6-7. INDICATION FOR PROCEDURE: Cervical radiculopathy unresponsive to conservative management. PROCEDURE: Anterior cervical diskectomy and fusion at C5-6. TAPE FOLDING MACHINE OPERATOR: Tad Gurrola. TYPE OF ANESTHESIA: GEA. DESCRIPTION OF PROCEDURE IN DETAIL: Once consent was noted to be on chart, Mr. Bansal was taken to the operating room. He was anesthetized and placed in supine position with a shoulder bump. All pressure points were carefully checked and padded. He was prepped and draped in usual sterile fashion. A time-out was called. A #15 blade was used to make a horizontal skin incision to the right of midline over C5-6. Bovie electrocautery was used to dissect down to and through the platysmas muscle. Subplatysmal dissection was performed just medial to the carotid sheath exposing C5-6. The level was verified with fluoroscopy. Retractors were placed. Soft tissue was removed off the interspace and distraction pins were placed in the C5 and C7. Distraction was placed across the disk space. The operating microscope was draped into the field. A complete diskectomy was performed. The posterior longitudinal ligament was removed and a #2 Kerrison was used to perform bilateral foraminotomies until the exiting C6 nerve roots were completely free. A 4 mm carbon fiber spacer packed with allograft and autograft was placed into the disk space after the endplates were prepared. A [place] plate was affixed to the anterior vertebral body of C5-6 with 260 mm screws at each level. Set screws were torqued to factory specifications. The wound was copiously irrigated. Meticulous hemostasis was obtained until the irrigant ran clear. 2-0 Vicryl reapproximated the platysmas. 3-0 Vicryl closed the skin subcuticularly. Mastisol and Steri-Strips were applied. Covaderm was applied. Tad Gurrola assisted throughout the surgery and helped perform the closure. SPECIMEN SENT: None. ESTIMATED BLOOD LOSS: 50 mL. DRAINS: None. COMPLICATIONS: None. /[id number] Leroy Wagner MD MPT/AQ / MPT / MODL /[id number] CC: Leonard Shahid PA-C documented in this encounter Plan of Treatment Upcoming Encounters Date Type Department Care Team (Late st Contact Info) Description 03/10/2025 1:15 PM EDT Office Visit [facility] Cardiology - [place] [address] [place] [address] Tabby Mcallister PA-C [address] [address] documented as of this encounter Visit Diagnoses Not on filedocumented in this encounter Care Teams Glassblower Relationship Specialty Start Date End Date Stacy Moise PA PCP - General 03/02/23 documented as of this encounter
--- OUTSIDE RECORDS SUMMARY | 2024-09-30 17:12 | XMS_ITS | Encounter Summary ---
Author Organization [facility] [employer] Address [address] [facility] [place] [address] Care Team Providers Care Auto Job Estimator Name Role Phone Stacy Moise Primary Care Provider Encounter Details Date Type Department Care Team (Late st Contact Info) Description 06/13/2019 Historic Encounter [facility] [address] [place] [address] ProviderJuan Historical Social History Tobacco [...] Visit [facility] Cardiology - [place] [address] [place] [address] Tabby Mcallister PA-C [address] [place] [address] [address] [place] [address] documented as of this encounter Procedures Procedure Name Priority Date/Time Associated Diagnosis Comments COMBO1 POC ([facility] DATA CONV) Routine 06/13/2019 1:19 PM EDT documented in this encounter Results * (ABNORMAL) COMBO1 POC ([facility] DATA CONV) (06/13/2019 1:19 PM EDT) Potassium POC 3.9 3.5 - 4.9 mmol/L 06/13/2019 5:19 PM EDT [facility] Creatinine POC 0.9 0.6 - 1.3 mg/dL 06/13/2019 5:19 PM EDT [facility] eGFR 100 >=60 mL/min/1. 73m2 06/13/2019 5:25 PM EDT [facility] eGFR NonAfrican 82 >=60 mL/min/1. 73m2 06/13/2019 5:25 PM EDT [facility] Hematocrit POC 34.0(L) 38.0 - 51.0 % 06/13/2019 5:19 PM EDT [facility] Hemoglobin POC 11.6(L) 12.0 - 17.0 Gram/dL 06/13/2019 5:19 PM EDT [facility] Animal Shelter Manager [phone] 06/13/2019 5:19 PM EDT [facility] Device SN [id number] 06/13/2019 5:19 PM EDT [facility] Blood 06/13/2019 1:19 PM EDT 06/13/2019 5:25 PM EDT us Sle Historical Provider LAB BLOOD ORDERABLES Fi nal Result [facility] [address] [phone] documented in this encounter Visit Diagnoses Not on filedocumented in this encounter Care Teams Auto Job Estimator Relationship Specialty Start Date End Date Stacy Moise PA PCP - General 03/02/23 documented as of this encounter
--- OUTSIDE RECORDS SUMMARY | 2024-09-30 17:12 | XMS_ITS | Encounter Summary ---
Author Organization [employer] [address] [facility] [place] [address] Care Team Providers Care Manufacturing Specialist Name Role Phone Stacy Moise Primary Care Provider [phone] Encounter Details Date Type Department Care Team (Late st Contact Info) Description 01/17/2020 Transcribed Document [facility] [place] [address] [place] [address] ProviderMireya MD [address] [place] [address] Social History Tobacco Use Types Packs/Day Years Used Date Smoking Tobacco: Never Assessed Sex and Gender Information Value Date Recorded Sex Assigned at Not on file Legal Sex Male 5:25 PM CDT Gender Identity Not on file Sexual Orientation Not on file documented as of this encounter Miscellaneous Notes * Cerner Conversion Note - Mireya ProviderMD - 01/17/2020 2:40 PM CDT [facility] [place] [address] SCOTTIE CURRAN [place] :1945 Visit Time:01/17/2020 What to do next Your Diagnosis Radiculopathy, cervical region, Radiculopathy, cervical region Instructions From Your Care Team Diet after Discharge: Resume usual diet as tolerated, Do not drink any alcoholic beverages, Drink at least 8-10 glasses of water per day_ Activity after Discharge: _, Rest and relax today, No strenuous activity 8 weeks, walk frequently Lifting Restrictions: 10 lbs Driving after Discharge: Do not drive until 24 hours after no longer taking pain medications Showering/Bathing: May shower in 3 days keep incision dry for 1 week , cover with plastic 1 week, _ Notify Provider of: fever or chills, excessive bleeding pain or swelling or loss of sensation Wound/Incision Care after Discharge: Keep operative site/wound site clean and dry,remove dressing in 3 days leave steri strips in place _ Medical Equipment for Home Use: ice pack 20 min every hour as needed for 2 days take pain medication with food, take stool softener 2 to 3 times a day while on pain medication Discharge Follow Up Instructions: f/u 4-5 weeks post op with AP/lateral x-rays of the cervical spine. Follow-Up Appointments Follow Up with CARLA VAZQUEZ When 02/27/2020 10:45 AM EDT Comments Appointment has been made Where: [address] [place] [address]- Business (1) Medications What How Much When [...] 1,000 Microgram(s) Oral Every Day esomeprazole (NexIUM 20 mg oral delayed release capsule) 1 Capsule(s) Oral Every Day finasteride (Proscar) 5 Milligram(s) Oral Every Day fluticasone nasal (Flonase) 2 Everett(s) Nasal Every Other Day as needed for [...] chloride 20 mEq oral tablet, extended release) 2 Tablet(s) Oral Two Times A Day psyllium (Konsyl) Oral Every Other Day rosuvastatin (Crestor 10 mg oral tablet) 1 Tablet(s) Oral Every Other Day Take your medications faithfully. Do NOT [...] of unused and medications per pharmacy guidance. Education Materials Outpatient Surgery, Adult, Care After These instructions provide you [...] After the procedure, it is common to have: ??? Tenderness and numbness at the surgical site. ??? Swelling and bruising around the surgical site. ??? Nausea. Follow these instructions at home: For at [...] Take care of children on your own. Activity ??? Return to your normal activities as told by your health care provider. Ask your health care provider what activities are safe for you. ??? Do not lift anything that is heavier than 10 lb (4.5 kg), or the limit that your health care provider tells you, until your health care provider says it is okay. ??? Do not play contact sports until your health care provider says it is okay. Incision care ??? Follow instructions from your health care provider about how to take care of an incision, if you have one. Make sure you: ? Wash your hands with soap and water before you change your bandage (dressing). If soap and water are not available, use hand gang leader. ? Change your dressing as told by [...] provider tells you to do that. ??? Check your incision area every day for signs of infection. Check for: ? More redness, swelling, or pain. ? More fluid or blood. ? Warmth. ? Pus or a bad smell. Medicines ??? Take uehy-ktj-rpdwbhp and prescription medicines only as told by your health care provider. ??? Do not drive or use heavy machinery while taking prescription pain medicines. Eating and drinking ??? Follow the diet recommended by your health care provider. ??? When you are hungry, begin eating light and bland foods such as toast. Gradually return to your regular diet. ??? If you vomit: ? Drink water, juice, or soup when you can drink without vomiting. ? Make sure you have little or no nausea before eating solid foods. General instructions ??? If you have sleep apnea, surgery and certain medicines can increase your risk for breathing problems. Follow instructions from your HCP about wearing your sleep device: ? Anytime you are sleeping, including during daytime naps. ? While taking prescription pain medicines, sleeping medicines, or medicines that make you drowsy. ??? Do not use any tobacco products, such as cigarettes, chewing tobacco, and e-cigarettes, for as long as possible. ??? If you smoke, do not smoke without supervision. ??? Keep all follow-up visits as told by your health care provider. This is important. Contact a health care provider if: ??? You have more redness, swelling, or pain around your incision. ??? You have more fluid or blood coming from your incision. ??? Your incision feels warm to the touch. ??? You have pus or a bad smell coming from your incision. ??? You have a fever. ??? You feel light-headed or you faint. ??? You develop a rash. ??? You keep feeling nauseous or keep vomiting. ??? You have very bad pain, even after taking the medicines your health care provider has prescribed or recommended. ??? You have constipation. Get help right away if: ??? You are unable to pass urine. ??? You have trouble breathing. Summary ??? Have a responsible adult stay with you for at least 24 hours after the procedure. ??? Nausea is common after a procedure. Make sure you have little or no nausea before eating solid foods. Follow the diet recommended by your health care provider. ??? Ask your health care provider what activities are safe for you. This information is not intended to replace advice given to you by your health care provider. Make sure you discuss any questions you have with your health care provider. Document Released: 02/08/2017 Document Revised: 05/27/2018 Document Reviewed: 02/08/2017 [employer] Patient Education ?? 2019 [employer]. acetaminophen and hydrocodone (a SEET a MIN oh fen and ruby droe KOE done) Hycet, Lorcet, [place], Verdrocet, Vicodin, Xodol, Zamicet What is the most important information I should know about acetaminophen and hydrocodone? MISUSE OF OPIOID MEDICINE CAN CAUSE ADDICTION, OVERDOSE, OR . Keep the medication in a place where others cannot get to it. An overdose of acetaminophen can damage your liver or cause . Call your doctor at once if you have pain in your upper stomach, loss of appetite, dark urine, or jaundice (yellowing of your skin or eyes). Taking opioid medicine during may cause life-threatening withdrawal symptoms in the . Fatal side effects can occur if you use opioid medicine with alcohol, or with other drugs that cause drowsiness or slow your breathing. Stop taking this medicine and call your doctor right away if you have skin redness or a rash that spreads and causes blistering and peeling. What is acetaminophen and hydrocodone? Hydrocodone is an opioid pain medication, sometimes called a narcotic. Acetaminophen is a less potent pain reliever that increases the effects of hydrocodone. Acetaminophen and hydrocodone is a combination medicine used to relieve moderate to severe pain. Acetaminophen and hydrocodone may also be used for purposes not listed in this medication guide. What should I discuss with my healthcare provider before taking acetaminophen and hydrocodone? You should not use this medicine if you are allergic to acetaminophen or hydrocodone, or if you have: ?? severe asthma or breathing problems; or ?? a blockage in your stomach or intestines. Tell your doctor if you have ever had: ?? liver disease; ?? a drug or alcohol addiction; ?? kidney disease; ?? a head injury or seizures; ?? urination problems; or ?? problems with your thyroid, pancreas, or gallbladder. If you use opioid medicine while you are , your baby could become dependent on the drug. This can cause life-threatening withdrawal symptoms in the baby after it is born. Babies born dependent on opioids may need medical treatment for several weeks. Do not breast-feed. This medicine can pass into breast milk and cause drowsiness, breathing problems, or in a nursing baby. How should I take acetaminophen and hydrocodone? Follow all directions on your prescription label. Never take this medicine in larger amounts, or for longer than prescribed. An overdose can damage your liver or cause . Tell your doctor if the medicine seems to stop working as well in relieving your pain. Always check your bottle to make sure you have received the correct pills (same brand and type) of medicine prescribed by your doctor. Never share this medicine with another person, especially someone with a history of drug abuse or addiction. MISUSE CAN CAUSE ADDICTION, OVERDOSE, OR . Keep the medicine in a place where others cannot get to it. Selling or giving away acetaminophen and hydrocodone is against the law. Measure liquid medicine carefully. Use the dosing syringe provided, or use a medicine dose-measuring device (not a kitchen spoon). If you need surgery or medical tests, tell the doctor ahead of time that you are using this medicine. You should not stop using this medicine suddenly. Follow your doctor's instructions about tapering your dose. Store at room temperature away from moisture and heat. Keep track of your medicine. You should be aware if anyone is using it improperly or without a prescription. Do not keep leftover opioid medication. Just one dose can cause in someone using this medicine accidentally or improperly. Ask your pharmacist where to locate a drug take-back disposal program. If there is no take-back program, flush the unused medicine down the toilet. What happens if I miss a dose? Since this medicine is used for pain, you are not likely to miss a dose. Skip any missed dose if it is almost time for your next dose. Do not use two doses at one time. What happens if I overdose? Seek emergency medical attention or call the Poison Help line at . An overdose of acetaminophen and hydrocodone can be fatal. The first signs of an acetaminophen overdose include loss of appetite, nausea, vomiting, stomach pain, sweating, and confusion or weakness. Later symptoms may include pain in your upper stomach, dark urine, and yellowing of your skin or the whites of your eyes. Overdose can also cause severe muscle weakness, pinpoint pupils, very slow breathing, extreme drowsiness, or coma. What should I avoid while taking acetaminophen and hydrocodone? Avoid driving or operating machinery until you know how this medicine will affect you. Dizziness or drowsiness can cause falls, accidents, or severe injuries. Do not drink alcohol. Dangerous side effects or could occur. Ask a doctor or pharmacist before using any other medicine that may contain acetaminophen (sometimes abbreviated as APAP). Taking certain medications together can lead to a fatal overdose. What are the possible side effects of acetaminophen and hydrocodone? Get emergency medical help if you have signs of an allergic reaction: hives; difficulty breathing; swelling of your face, lips, tongue, or throat. Opioid medicine can slow or stop your breathing, and may occur. A person caring for you should seek emergency medical attention if you have slow breathing with long pauses, blue colored lips, or if you are hard to wake up. In rare cases, acetaminophen may cause a severe skin reaction that can be fatal. This could occur even if you have taken acetaminophen in the past and had no reaction. Stop taking this medicine and call your doctor right away if you have skin redness or a rash that spreads and causes blistering and peeling. Call your doctor at once if you have: ?? noisy breathing, sighing, shallow breathing; ?? a light-headed feeling, like you might pass out; ?? liver problems--nausea, upper stomach pain, tiredness, loss of appetite, dark urine, lili-colored stools, jaundice (yellowing of the skin or eyes); or ?? low cortisol levels-- nausea, vomiting, loss of appetite, dizziness, worsening tiredness or weakness. Seek medical attention right away if you have symptoms of serotonin syndrome, such as: agitation, hallucinations, fever, sweating, shivering, fast heart rate, muscle stiffness, twitching, loss of coordination, nausea, vomiting, or diarrhea. Serious side effects may be more likely in older adults and those who are overweight, malnourished, or debilitated. Long-term use of opioid medication may affect fertility (ability to have children) in men or women. It is not known whether opioid effects on fertility are permanent. Common side effects include: ?? dizziness, drowsiness, feeling tired; ?? nausea, vomiting, stomach pain; ?? constipation; or ?? headache. This is not a complete list of side effects and others may occur. Call your doctor for medical advice about side effects. You may report side effects to FDA at 9-853-QPY-1572. What other drugs will affect acetaminophen and hydrocodone? You may have breathing problems or withdrawal symptoms if you start or stop taking certain other medicines. Tell your doctor if you also use an antibiotic, antifungal medication, heart or blood pressure medication, seizure medication, or medicine to treat HIV or hepatitis C. Opioid medication can interact with many other drugs and cause dangerous side effects or . Be sure your doctor knows if you also use: ?? cold or allergy medicines, bronchodilator asthma/COPD medication, or a diuretic ('water pill'); ?? medicines for motion sickness, irritable bowel syndrome, or overactive bladder; ?? other narcotic medications--opioid pain medicine or prescription cough medicine; ?? a sedative like Valium--diazepam, alprazolam, lorazepam, Xanax, Klonopin, Versed, and others; ?? drugs that make you sleepy or slow your breathing--a sleeping pill, muscle relaxer, medicine to treat mood disorders or mental illness; ?? drugs that affect serotonin levels in your body--a stimulant, or medicine for depression, Parkinson's disease, migraine headaches, serious infections, or nausea and vomiting. This list is not complete. Other drugs may affect acetaminophen and hydrocodone, including prescription and olhl-lln-xzwhyvs medicines, vitamins, and herbal products. Not all possible interactions are listed here. Where can I get more information? Your doctor or pharmacist can provide more information about acetaminophen and hydrocodone. Remember, keep this and all other medicines out of the reach of children, never share your medicines with others, and use this medication only for the indication prescribed. Every effort has been made to ensure that the information provided by [employer]') is accurate, up-to-date, and complete, but no guarantee is made to that effect. Drug information contained herein may be time sensitive. [employer] information has been compiled for use by healthcare practitioners and consumers in the [place] and therefore [employer] does not warrant that uses outside of the [place] are appropriate, unless specifically indicated otherwise. [employer]'s drug information does not endorse drugs, diagnose patients or recommend therapy. [employer] drug information is an informational resource designed [...] effective or appropriate for any given patient. [employer] does not assume any responsibility for any aspect of healthcare administered with the aid of information [employer] provides. The information contained herein is not intended to cover all possible uses, directions, precautions, warnings, drug interactions, allergic reactions, or adverse effects. If you have questions about the drugs you are taking, check with your doctor, nurse or pharmacist. Copyright 9511-2498 [employer]. Version: 15.02. Revision Date: 09/06/2018. Emergency Awareness and Preventative Care STROKE is [...] Assistance with quitting is available by contacting 5-003-ZZYN-NOW. This is a free resource providing counseling, support, and referral. Or you may contact your personal physician. [employer] Suicide Prevention Lifeline: The National Suicide Prevention [...] This Visit (last charted value for your 01/17/2020 visit) Hematology 01/13/2020 11:47 AM WBC: 12.0 K/uL -- Normal range between ( 3.6 and 9.5 ) RBC: 4.54 Million/uL -- Normal range between ( 4.20 and 5.70 ) Hct: 41.9 % -- Normal range between ( 40.1 and 51.0 ) Hgb: 14.4 g/dL -- Normal range between ( 13.5 and 17.3 ) Platelet Count: 339 K/uL -- Normal range between ( 163 and 369 ) MCH: 31.7 pg -- Normal range between ( 25.6 and 32.2 ) MCHC: 34.4 Gram/dL -- Normal range between ( 32.2 and 36.5 ) MCV: 92.3 fL -- Normal range between ( 79.0 and 94.8 ) Slide Review: No RDW: 12.6 % -- Normal range between ( 11.7 and 14.9 ) MPV: 9.7 fL -- Normal range between ( 9.4 and 12.4 ) Urinalysis 01/13/2020 11:47 AM Urine Nitrite: Negative Urine Leukocyte Esterase: Negative Urine Appearance: Clear Urine Glucose Dipstick: Negative Urine Blood Dipstick: Negative Urine Type: U CleanCatch Urine Urobilinogen Dipstick: 0.2 EU/dL Urine Protein Dipstick: Negative Urine Color: Yellow Urine Ketones Dipstick: Negative Urine pH Dipstick: 6.0 -- Normal range between ( 6.0 and 8.0 ) Urine Bilirubin Dipstick: Negative Urine Specific [place]: 1.020 -- Normal range between ( 1.005 and 1.030 ) General Chemistry 01/17/2020 12:35 PM Glucose POC2: 149 mg/dL -- Normal range between ( 70 and 110 ) Device Comment 1: Device Comment 1 01/13/2020 11:47 AM Creatinine Level: 0.90 mg/dL -- Normal range between ( 0.70 and 1.30 ) Sodium Level: 138 mmol/L -- Normal range between ( 136 and 146 ) Potassium Level: 4.3 mmol/L -- Normal range between ( 3.5 and 5.1 ) Chloride Level: 106 mmol/L -- Normal range between ( 102 and 112 ) Carbon Dioxide Level: 26 mmol/L -- Normal range between ( 21 and 32 ) Anion Gap: 10 -- Normal range between ( 9 and 20 ) Bun/Creatinine: 22.2 -- Normal range between ( 8.0 and 20.0 ) Calcium Level: 9.4 mg/dL -- Normal range between ( 8.4 and 10.1 ) eGFR : >60 mL/min/1.73m2 eGFR NonAfrican: >60 mL/min/1.73m2 Glucose Level: 123 mg/dL -- Normal range between ( 74 and 106 ) Blood Urea Nitrogen: 20 mg/dL -- Normal range between ( 7 and 22 ) Patient Name:SCOTTIE CURRAN I have received this information and was given the opportunity to ask questions. Patient/Manager Country Name: Patient/Manager Country Signature: Relationship to Patient: Clinician/Hospital Manager Country Signature: Date: Electronically signed by [facility] Conversion Pipe Stress Engineer Cerner at 02/16/2023 4:01 PM CDT documented in this encounter Plan of Treatment Upcoming Encounters Date Type Department Care Team (Late st Contact Info) Description 03/10/2025 1:15 PM EDT Office Visit [facility] Cardiology - [place] [address] [place] [address] Tabby Mcallister PA-C [address] [facility] [address] [place] [place] [address] documented as of this encounter Visit Diagnoses Not on filedocumented in this encounter Care Teams Manufacturing Specialist Relationship Specialty Start Date End Date Stacy Moise PA PCP - General 03/02/23 documented as of this encounter
--- OUTSIDE RECORDS SUMMARY | 2024-09-30 17:12 | XMS_ITS | Encounter Summary ---
Author Organization [employer] Address [address] [place] [address] Care Team Providers Care Cartridge Feeder Name Role Phone Stacy Moise Primary Care Provider [phone] Encounter Details Date Type Department Care Team (Late st Contact Info) Description 06/13/2019 Transcribed Document [facility] [place] [place] Family Medicine [facility] [place] [address] ProviderMireya MD [address] [place] [id number] Social History Tobacco Use Types Packs/Day Years Used Date Smoking Tobacco: Never Assessed Sex and Gender Information Value Date Recorded Sex Assigned at Not on file Legal Sex Male 5:25 PM CDT Gender Identity Not on file Sexual Orientation Not on file documented as of this encounter Miscellaneous Notes * Cerner Conversion Note - Mireya ProviderMD - 06/13/2019 4:53 PM CDT Nursing Discharge Summary Entered On: 06/13/2019 16:54 EDT Performed On: 06/13/2019 16:53 EDT by DANDY AVILA non linear editor Documentation Patient Disposition, General : Discharge Discharge To : Home with ambulatory/outpatient follow-up Mode Of Departure, General Discharge : Private vehicle Accompanied By, Discharge : Spouse IV Discontinued : Yes Personal Belongings With Patient : Yes Patient Education Completed : Yes Teaching Method : Demonstration, Explanation Teaching Evaluation : Returns demonstration, Verbalizes understanding DANDY AVILA RN - 06/13/2019 16:53 EDT documented in this encounter Plan of Treatment Upcoming Encounters Date Type Department Care Team (Late st Contact Info) Description 03/10/2025 1:15 PM EDT Office Visit [facility] Cardiology - [place] [address] [place] [address] Tabby Mcallister PA-Yuliana [address] [facility] [address] [place] [address] documented as of this encounter Visit Diagnoses Not on filedocumented in this encounter Care Teams Cartridge Feeder Relationship Specialty Start Date End Date Stacy Moise PA PCP - General 03/02/23 documented as of this encounter
--- OUTSIDE RECORDS SUMMARY | 2024-09-30 17:12 | XMS_ITS | Encounter Summary ---
Author Organization [employer] [facility] [employer] Address [address] [place] [address] Care Team Providers Care Net Wpf Developer Name Role Phone Stacy Moise Primary Care Provider [phone] Encounter Details Date Type Department Care Team (Late st Contact Info) Description 03/08/2020 Transcribed Document [facility] [place] Family Medicine [facility] [place] [address] ProviderMireya MD [address] [place] [address] [id number] Social History Tobacco Use Types Packs/Day Years Used Date Smoking Tobacco: Never Assessed Sex and Gender Information Value Date Recorded Sex Assigned at Not on file Legal Sex Male 5:25 PM CDT Gender Identity Not on file Sexual Orientation Not on file documented as of this encounter Miscellaneous Notes * Cerner Conversion Note - Mireya Osuna MD - 03/08/2020 11:51 AM CDT Patient Education Materials Follows: Steps to Quit Smoking Smoking tobacco can be bad for your health. It can also affect almost every organ in your body. Smoking puts you and people around you at risk for many serious long-lasting (chronic) diseases. Quitting smoking is hard, but it is one of the best things that you can do for your health. It is never too late to quit. What are the benefits of quitting smoking? When you quit smoking, you lower your risk for getting serious diseases and conditions. They can include: ??? Lung cancer or lung disease. ??? Heart disease. ??? Stroke. ??? Heart attack. ??? Not being able to have children (infertility). ??? Weak bones (osteoporosis) and broken bones (fractures). If you have coughing, wheezing, and shortness of breath, those symptoms may get better when you quit. You may also get sick less often. If you are , quitting smoking can help to lower your chances of having a baby of low weight. What can I do to help me quit smoking? Talk with your doctor about what can help you quit smoking. Some things you can do (strategies) include: ??? Quitting smoking totally, instead of slowly cutting back how much you smoke over a period of time. ??? Going to in-person counseling. You are more likely to quit if you go to many counseling sessions. ??? Using resources and support systems, such as: ? Online chats with a counselor. ? Phone quitlines. ? Printed self-help materials. ? Support groups or group counseling. ? Text messaging programs. ? Mobile phone apps or applications. ??? Taking medicines. Some of these medicines may have nicotine in them. If you are or , do not take any medicines to quit smoking unless your doctor says it is okay. Talk with your doctor about counseling or other things that can help you. Talk with your doctor about using more than one strategy at the same time, such as taking medicines while you are also going to in-person counseling. This can help make quitting easier. What things can I do to make it easier to quit? Quitting smoking might feel very hard at first, but there is a lot that you can do to make it easier. Take these steps: ??? Talk to your family and friends. Ask them to support and encourage you. ??? Call phone quitlines, reach out to support groups, or work with a counselor. ??? Ask people who smoke to not smoke around you. ??? Avoid places that make you want (trigger) to smoke, such as: ? Bars. ? Parties. ? Smoke-break areas at work. ??? Spend time with people who do not smoke. ??? Lower the stress in your life. Stress can make you want to smoke. Try these things to help your stress: ? Getting regular exercise. ? Deep-breathing exercises. ? Yoga. ? Meditating. ? Doing a body scan. To do this, close your eyes, focus on one area of your body at a time from head to toe, and notice which parts of your body are tense. Try to relax the muscles in those areas. ??? Download or buy apps on your mobile phone or tablet that can help you stick to your quit plan. There are many free apps, such as QuitGuide from the CDC (Centers for Disease Control and Prevention). You can find more support from smokefree.gov and other websites. This information is not intended to replace advice given to you by your health care provider. Make sure you discuss any questions you have with your health care provider. Document Released: 08/15/2010 Document Revised: 06/16/2017 Document Reviewed: 03/04/2016 [employer] Interactive Patient Education ? 2019 [employer] Moderate Conscious Sedation, Adult, Care After [...] you are awake and alert. ??? Take efov-wqx-lxidogr and prescription medicines only as told by [...] with your health care provider. Document Released: 08/09/2014 Document Revised: 03/23/2017 Document Reviewed: 02/07/2017 ElseLa Miu Interactive Patient Education ? 2019 [employer] documented in this encounter Plan of Treatment Upcoming Encounters Date Type Department Care Team (Late st Contact Info) Description 03/10/2025 1:15 PM EDT Office Visit [facility] Cardiology - [place] [address] [place] [address] Tabby Mcallister PA-C 227 [facility] [address] [place] [address] documented as of this encounter Visit Diagnoses Not on filedocumented in this encounter Care Teams Net Wpf Developer Relationship Specialty Start Date End Date Stacy Moise PA PCP - General 03/02/23 documented as of this encounter
--- OUTSIDE RECORDS SUMMARY | 2024-09-30 17:12 | XMS_ITS | Encounter Summary ---
Author Organization [employer] [facility] [employer] Address [address] [facility] [place] [address] Care Team Providers Care Crime Specialist Name Role Phone Stacy Moise Primary Care Provider [phone] Encounter Details Date Type Department Care Team (Late st Contact Info) Description 01/06/2019 Transcribed Document [facility] [place] Family Medicine [facility] [place] [address] ProviderMireya MD [address] [place] [address] [id number] Social History Tobacco Use Types Packs/Day Years Used Date Smoking Tobacco: Never Assessed Sex and Gender Information Value Date Recorded Sex Assigned at Not on file Legal Sex Male 5:25 PM CDT Gender Identity Not on file Sexual Orientation Not on file documented as of this encounter Miscellaneous Notes * Cerner Conversion Note - Historical ProviderMD - 01/06/2019 12:13 PM THERAPIST PHYS Post Visit Phone Call Entered On: 01/06/2019 12:14 EST Performed On: 01/06/2019 12:13 EST by TUYET MOHAN, RN Post Visit Phone Call Post Visit Phone Call History : First call, Left message Phone Number : [phone] TUYET MOHAN, RN - 01/06/2019 12:13 EST documented in this encounter Plan of Treatment Upcoming Encounters Date Type Department Care Team (Late st Contact Info) Description 03/10/2025 1:15 PM EDT Office Visit [facility] Cardiology - [address] [address] Tabby Mcallister PA-C [address] [address] documented as of this encounter Visit Diagnoses Not on filedocumented in this encounter Care Teams Crime Specialist Relationship Specialty Start Date End Date Stacy Moise PA PCP - General 03/02/23 documented as of this encounter
--- OUTSIDE RECORDS SUMMARY | 2024-09-30 17:12 | XMS_ITS | Encounter Summary ---
Author Organization [facility] [employer] [facility] [employer] Address [address] [place] [address] Care Team Providers Care Bell Clerk Name Role Phone Stacy Moise Primary Care Provider [phone] Encounter Details Date Type Department Care Team (Late st Contact Info) Description 03/10/2020 Transcribed Document [facility] [address] [place] [address] ProviderMireya MD [address] [place] [address] [id number] Social History Tobacco Use Types Packs/Day Years Used Date Smoking Tobacco: Never Assessed Sex and Gender Information Value Date Recorded Sex Assigned at Not on file Legal Sex Male 5:25 PM CDT Gender Identity Not on file Sexual Orientation Not on file documented as of this encounter Miscellaneous Notes * Cerner Conversion Note - Mireya ProviderMD - 03/10/2020 7:54 PM CDT Spiritual Care Short Form Entered On: 03/10/2020 19:55 EDT Performed On: 03/10/2020 19:54 EDT by JEROD ZAMARRIPA General Information, Spiritual Care Spiritual Care Referred by : Other: Code Stroke Reason for Visit : Referral/Consult Intervention/Comment/Summary Points : Responded to code stroke. Facilitated communication between pt and who is waiting in the parking lot with a friend. Provided hospitality bag. JEROD ZAMARRIPA - 03/10/2020 19:54 EDT documented in this encounter Plan of Treatment Upcoming Encounters Date Type Department Care Team (Late st Contact Info) Description 03/10/2025 1:15 PM EDT Office Visit [facility] Cardiology - [place] [address] [place] [address] Tabby Mcallister PA-C [address] [facility] [address] [place] [address] documented as of this encounter Visit Diagnoses Not on filedocumented in this encounter Care Teams Bell Clerk Relationship Specialty Start Date End Date Stacy Moise PA PCP - General 03/02/23 documented as of this encounter
--- OUTSIDE RECORDS SUMMARY | 2024-09-30 17:12 | XMS_ITS | Encounter Summary ---
Author Organization [employer] [facility] [employer] Address [address] [facility] [place] [address] Care Team Providers Care Polisher Sand Name Role Phone Stacy Moise Primary Care Provider [phone] Encounter Details Date Type Department Care Team (Late st Contact Info) Description 03/08/2020 Transcribed Document [facility] [place] [facility] [place] [address] ProviderMireya MD [address] [place] [address] [phone] Social History Tobacco Use Types Packs/Day Years Used Date Smoking Tobacco: Never Assessed Sex and Gender Information Value Date Recorded Sex Assigned at Not on file Legal Sex Male 5:25 PM CDT Gender Identity Not on file Sexual Orientation Not on file documented as of this encounter Miscellaneous Notes * Cerner Conversion Note - Mireya ProviderMD - 03/08/2020 10:18 AM CDT Pre Procedure Adult Entered On: 03/08/2020 10:23 EDT Performed On: 03/08/2020 10:18 EDT by Nieves Fraga Registered Nurse Height and Weight, Clinical Dosing Height Source : Stated Height Entry Format : [place] Height, Feet : 5 ft(Converted to: 152 cm, 60 Inch) Height, Inches : 6 Inch(Converted to: 0 ft 6 Inch, 15.24 cm) Clinical Height : 167.64 cm Weight Source : Standing scale Weight Entry Format : [place] Clinical Dosing Weight : 77.73 kg Weight, Pounds : 171 lb Body Surface Area (BSA) : 1.87 m2 Body Mass Index : 27.7 kg/m2 (HI) [place] Body Weight : 63 kg Nieves Fraga Registered Nurse - 03/08/2020 10:18 EDT Health Histories Smoking Status : 10 or more cigarettes (1/2 pack or more)/day in last 30 days Smokeless Tobacco Status : Never Desires Tobacco Cessation Medication : Yes Nieves Fraga Registered Nurse - 03/08/2020 10:18 EDT Social History (As Of: 03/08/2020 10:23:53 EDT) Tobacco: Smoking Status Current every day [...] Pertussis (Whooping cough) Tuberculosis Symptoms : None Nieves Fraga Registered Nurse - 03/08/2020 10:18 EDT Anesthesia/Transfusion History Family History of Anesthesia Reaction : No prior transfusion(s) Transfusion History : Prior anesthesia without reaction Family History of Anesthesia Reaction : None Nieves Fraga Registered Nurse - 03/08/2020 10:18 EDT Functional Assessment Living Situation : Home Current Home Treatments : None Nieves Fraga Registered Nurse - 03/08/2020 10:18 EDT [place] Suicide Severity Rating Scale (C-SSRS) CSSRS Past Month Wish to be : No CSSRS Past Month Suicidal Thoughts : No CSSRS Lifetime Suicide Behavior : No Suicide Severity Rating Score : 0 Suicide Severity Rating : No Additional Care Required at this time Nieves Fraga Registered Nurse - 03/08/2020 10:18 EDT Psychosocial History Do You Have a History of the Following? : Patient denies history Currently in Unsafe Situation : No Nieves Fraga Registered Nurse - 03/08/2020 10:18 EDT Advance Directive Patient has Advance Directive *Q : No, patient refuses Advance Directive information Nieves Fraga Registered Nurse - 03/08/2020 10:18 EDT General Info Preferred Name : scottie Support Person/Patient Silk Screen [place] Helper : Yes Support Person/Pt Rep Contact Information : tony el [phone] Want Family/Rep/Phys Notified of Admit : No Emergency Contact #1 : na Emergency Contact #1 Phone Number : na Emergency Contact #1 Relationship : na Emergency Contact #2 : na Emergency Contact #2 Phone Number : na Emergency Contact #2 Relationship : na Primary Language : Stateless Preferred Communication Mode : Verbal Communication Barrier : None Nieves Fraga Registered Nurse - 03/08/2020 10:18 EDT Sleep Apnea Risk Assmt Hx of [...] Sleep Apnea Risk Level Score : 3 Nieves Fraga Registered Nurse - 03/08/2020 10:18 EDT Reed Scale Reed Sensory Perception : No impairment Reed Moisture : Rarely moist Reed Activity : Walks frequently Reed Mobility : No limitation Reed Nutrition : Adequate Reed Friction and Shear : No apparent problem Reed Score : 22 Nieves Fraga Registered Nurse - 03/08/2020 10:18 EDT Fall Risk Scales ABCs Fall Injury Risk Identification : None GUTIERREZ Hx Falls Immediate/Within 3 Months : No Gutierrez Secondary Diagnosis : Yes GUTIERREZ Use of Ambulatory Aid : None GUTIERREZ IV Therapy or IV Access : Yes Gutierrez Gait/Transferring : Normal, bedrest, immobile Gutierrez Mental Status : Oriented to own ability Gutierrez Fall Risk Score : 35 GUTIERREZ Fall Scale Risk Level : 25-45 Medium Risk [place] Fall Interventions : Adequate lighting, Assistive devices within reach, Bed in low position, Call device within reach, Fall prevention handout/education per facility policy, Frequent orientation to call device, Frequent orientation to surroundings, Hourly comfort/safety rounds, Non-slip footwear, Personal items within reach, Reinforced to call for assistance before getting out of bed, Room free of clutter/spills, Upper side-rails up, Wheels locked, Wires/Cords secured Nieves Fraga Registered Nurse - 03/08/2020 10:18 EDT Education Topics, Day of Surgery DayofSurgery Education Grid Anesthesia/Sedation : Verbalizes understanding CAUTI : Verbalizes understanding Central Lines : Verbalizes understanding CHG Preoperative Bathing/Cloths : Verbalizes understanding Fall Risks : Verbalizes understanding Family Instructions : Verbalizes understanding Incentive Spirometry : Verbalizes understanding Infection Control : Verbalizes understanding Infection Risks : Verbalizes understanding IV's : Verbalizes understanding Medication Instructions : Verbalizes understanding Pain Management : Verbalizes understanding Plan of Care : Verbalizes understanding Respiratory Care : Verbalizes understanding Responsible Adult : Verbalizes understanding SNE's : Verbalizes understanding Tubes/Drains : Verbalizes understanding Other : Verbalizes understanding Nieves Fraga Registered Nurse - 03/08/2020 10:18 EDT Valuables and Belongings Valuables and Belongings : Clothing, Personal items, No comfort items, No jewelry, No personal devices, No assistive devices, No respiratory devices, No medications Clothing : Common streetwear Clothing Disposition : Bedside Personal Items : Cell phone, Wallet Personal Items Disposition : Bedside Nieves Fraga Registered Nurse - 03/08/2020 10:18 EDT documented in this encounter Plan of Treatment Upcoming Encounters Date Type Department Care Team (Late st Contact Info) Description 03/10/2025 1:15 PM EDT Office Visit [facility] Cardiology - [place] [address] [place] [address] Tabby Mcallister PA-C 227 [facility] [address] [place] [address] documented as of this encounter Visit Diagnoses Not on filedocumented in this encounter Care Teams Polisher Sand Relationship Specialty Start Date End Date Stacy Moise PA PCP - General 03/02/23 documented as of this encounter
--- OUTSIDE RECORDS SUMMARY | 2024-09-30 17:12 | XMS_ITS | Encounter Summary ---
Author Organization [employer] Address [address] [place] [address] Care Team Providers Care Leather Colorer Name Role Phone Stacy Moise Primary Care Provider [phone] Encounter Details Date Type Department Care Team (Late st Contact Info) Description 03/08/2020 Transcribed Document [facility] [place] Family [place] [address] ProviderMireya MD [address] [place] [address] Social History Tobacco Use Types Packs/Day Years Used Date Smoking Tobacco: Never Assessed Sex and Gender Information Value Date Recorded Sex Assigned at Not on file Legal Sex Male 5:25 PM CDT Gender Identity Not on file Sexual Orientation Not on file documented as of this encounter Miscellaneous Notes * Cerner Conversion Note - Mireya Osuna MD - 03/08/2020 2:09 PM CDT [place] [address] SC[facility] :1945 Visit Time:03/08/2020 Your Visit Summary Your Care Team Admitting Physician - NILAM PENA MD-CAR Attending Physician - NILAM PENA MD-CAR Primary Care Physician - GER PATEL MD-EKATERIAN Referring Physician - NILAM PENA MD-CAR Your Diagnosis Atherosclerotic heart disease of [place] coronary artery without angina pectoris, Atherosclerotic heart disease of [place] coronary artery without angina pectoris, CAD (coronary artery disease) Discharge Vitals Heart Rate (Monitored) 56 Respiratory Rate 17 Blood Pressure 137/72 What to do next Instructions From Your Care Team continue same medications. Follow-Up Appointments Follow Up with NILAM PENA When Within 3 months Comments Call for follow up appointment Where: [address] [facility] [address]- Business (1) Medications What How Much When Instructions Next Dose esomeprazole (NexIUM 24HR 20 mg oral delayed release capsule) Oral Every Day potassium chloride (potassium chloride 20 mEq oral tablet, extended release) Oral Two Times A Day amLODIPine (Norvasc 10 mg oral tablet) 1 Tablet(s) Oral Every Day aspirin (Aspir 81) 81 Milligram(s) Oral Every Day cetirizine (ZyrTEC) 10 Milligram(s) Oral Every Day as needed for as needed for allergy symptoms clopidogrel (Plavix 75 mg oral tablet) 1 Tablet(s) Oral Every Day cyanocobalamin (Vitamin B12) 1,000 Microgram(s) Oral Every Day finasteride (Proscar) 5 Milligram(s) Oral Every Day fluticasone nasal (Flonase) 2 Melrose(s) Nasal Every Other Day as needed for [...] 5 minutes as needed for Chest Pain psyllium (Konsyl) Oral Every Other Day rosuvastatin [...] This Visit No Immunizations Found Education Materials Steps to Quit Smoking Smoking tobacco can [...] 08/15/2010 Document Revised: 06/16/2017 Document Reviewed: 03/04/2016 ElseDetectent Interactive Patient Education ?? 2019 [employer] Moderate Conscious Sedation, Adult, Care After [...] you are awake and alert. ??? Take hjsr-lmz-ejcliff and prescription medicines only as told by [...] 08/09/2014 Document Revised: 03/23/2017 Document Reviewed: 02/07/2017 ElseDetectent Interactive Patient Education ?? 2019 [employer] Emergency Awareness and Preventative Care STROKE [...] Assistance with quitting is available by contacting 5-573-MXNDNOW. This is a free resource providing counseling, support, and referral. Or you may contact your personal physician. [place] Suicide Prevention Lifeline: The National Suicide Prevention [...] This Visit (last charted value for your 03/08/2020 visit) Hematology 03/08/2020 9:42 AM Platelet Count: 360 K/uL -- Normal range between ( 163 and 369 ) Patient Name:MAGDY SCOTTIE ERIKA I have received and understand this information and was given the opportunity to ask questions. Patient/Forestry Pilot Name: Patient/Forestry Pilot Signature: Relationship to Patient: Clinician/Hospital Forestry Pilot Signature: Date: documented in this encounter Plan of Treatment Upcoming Encounters Date Type Department Care Team (Late st Contact Info) Description 03/10/2025 1:15 PM EDT Office Visit [facility] Cardiology - [place] [address] [place] [address] Tabby Mcallister PA-C [address] [facility] [address] [place] [address] documented as of this encounter Visit Diagnoses Not on filedocumented in this encounter Care Teams Leather Colorer Relationship Specialty Start Date End Date Stacy Moise PA PCP - General 03/02/23 documented as of this encounter
--- OUTSIDE RECORDS SUMMARY | 2024-09-30 17:12 | XMS_ITS | Encounter Summary ---
Author Organization [facility] Address [address] [place] [address] Care Team Providers Care Certified Medical Biller Name Role Phone Stacy Moise Primary Care Provider [phone] Encounter Details Date Type Department Care Team (Late st Contact Info) Description 01/17/2020 Transcribed Document [facility] Family Medicine [address] [place] [address] ProviderMireya MD [address] [place] [id number] Social History Tobacco Use Types Packs/Day Years Used Date Smoking Tobacco: Never Assessed Sex and Gender Information Value Date Recorded Sex Assigned at Not on file Legal Sex Male 5:25 PM CDT Gender Identity Not on file Sexual Orientation Not on file documented as of this encounter Miscellaneous Notes * Cerner Conversion Note - Mireya Osuna MD - 01/17/2020 11:35 AM CDT [facility] Main OR IntraOp Summary Primary Physician: CARLA VAZQUEZ MD-SNU Finalized Date/Time: 01/18/20 09:58:57 Pt. Name: SCOTTIE CURRAN ERIKA /Sex: 1945 Male Med Rec #: [id number] Physician: CARLA VAZQUEZ MD-SNU Financial #: [id number] Pt. Type: O Room/Bed: Admit/Disch: 01/17/20 06:45:00 - 01/17/20 14:55:00 Institution: [facility] IntraOp Case Attendance Entry 1 Entry 2 Entry 3 Case Attendee CARLA VAZQUEZ SMITH, MYRIAH L., RN Byrd, Charlie D RN -TOMEKA Role Performed Surgeon/Proceduralist, Quality Associate, First Quality Associate, First First Time In 01/17/20 10:59:00 01/17/20 10:59:00 01/17/20 10:59:00 Time Out 01/17/20 12:24:00 01/17/20 12:24:00 01/17/20 12:24:00 Procedure Cervical Discectomy Cervical Discectomy Cervical Discectomy Fusion Anterior Fusion Anterior Fusion Anterior Other Attendee ORIENTEE Superficial Wound Closed By: Last Modified By: SOFÍA LAMB, SOFÍA MORALES, SOFÍA MORALES RN 01/17/20 12:26:03 01/17/20 12:26:03 01/17/20 12:26:03 Entry 4 Entry 5 Entry 6 Case Attendee ANNA RAMOS, [facility] PA-C STONER, LINDSEY, NA Role Performed Scrub, First Physician assistant finance manager EDUCATIONAL PSYCHOLOGIST/Nurse Service Director Time In 01/17/20 10:59:00 01/17/20 10:59:00 01/17/20 10:59:00 Time Out 01/17/20 12:24:00 01/17/20 12:24:00 01/17/20 12:24:00 Procedure Cervical Discectomy Cervical Discectomy Cervical Discectomy Fusion Anterior Fusion Anterior Fusion Anterior Other Attendee Superficial Wound Closed By: Last Modified By: SOFÍA LAMB RN SMITH, MYRIAH L., RN SOFÍA LAMB RN 01/17/20 12:26:03 01/17/20 12:26:03 01/17/20 12:26:03 Entry 7 Entry 8 Entry 9 Case Attendee ESTEFANI BARRERA MD-ANS Hensley, Karen, Parker, Gwendolyn, Clinton Diagnostic Rn Staff Role Performed Anesthesiologist of Senior Recruiter Quality Associate, First Record Time In 01/17/20 10:59:00 01/17/20 10:59:00 01/17/20 11:02:00 Time Out 01/17/20 12:24:00 01/17/20 12:24:00 01/17/20 11:42:00 Procedure Cervical Discectomy Cervical Discectomy Cervical Discectomy Fusion Anterior Fusion Anterior Fusion Anterior Other Attendee LUNCH RELIEF Superficial Wound Closed By: Last Modified By: SOFÍA LAMB, SOFÍA MORALES, SOFÍA MORALES RN 01/17/20 12:26:03 01/17/20 12:26:03 01/17/20 12:26:03 Entry 10 Entry 11 Case Attendee Yoon Perry, OTHER, ATTENDEE #1 Duplicating Machine Operator Role Performed Scrub, First Vendor Time In 01/17/20 11:03:00 01/17/20 10:59:00 Time Out 01/17/20 12:01:00 01/17/20 12:24:00 Procedure Cervical Discectomy Cervical Discectomy Fusion Anterior Fusion Anterior Other Attendee LUNCH RELIEF ROXANN STONER Superficial Wound Closed By: Last Modified By: SOFÍA LAMB RN SMITH, MYRIAH L., RN 01/17/20 12:26:03 01/17/20 12:26:[address] [facility] IntraOp Case Attendance Audit 01/17/20 12:26:03 Medication Coordinator: SMITHML Modifier: SMITHML 1 <+> Time Out 1 <*> Procedure Cervical Discectomy Fusion Anterior 2 <+> Time Out 2 <*> Procedure Cervical Discectomy Fusion Anterior 3 <+> Time Out 3 <*> Procedure Cervical Discectomy Fusion Anterior 4 <+> Time Out 4 <*> Procedure Cervical Discectomy Fusion Anterior 5 <+> Time Out 5 <*> Procedure Cervical Discectomy Fusion Anterior 6 <+> Time Out 6 <*> Procedure Cervical Discectomy Fusion Anterior 7 <+> Time Out 7 <*> Procedure Cervical Discectomy Fusion Anterior 8 <+> Time Out 8 <*> Procedure Cervical Discectomy Fusion Anterior 9 <*> Procedure Cervical Discectomy Fusion Anterior 10 <*> Procedure Cervical Discectomy Fusion Anterior 11 <+> Time Out 11 <*> Procedure Cervical Discectomy Fusion Anterior 01/17/20 12:05:23 Medication Coordinator: SMITHML Modifier: SMITHML 1 <*> Procedure Cervical Discectomy Fusion Anterior 2 <*> Procedure Cervical Discectomy Fusion Anterior 3 <*> Procedure Cervical Discectomy Fusion Anterior 4 <*> Procedure Cervical Discectomy Fusion Anterior 5 <*> Procedure Cervical Discectomy Fusion Anterior 6 <*> Procedure Cervical Discectomy Fusion Anterior 7 <*> Procedure Cervical Discectomy Fusion Anterior 8 <*> Procedure Cervical Discectomy Fusion Anterior 9 <*> Procedure Cervical Discectomy Fusion Anterior 10 <+> Time Out 10 <*> Procedure Cervical Discectomy Fusion Anterior 10 <+> Other Attendee 11 <+> Time In 11 <*> Procedure Cervical Discectomy Fusion Anterior 01/17/20 11:58:02 Medication Coordinator: VLADIMIR Modifier: SMITHML <+> 11 Case Attendee <+> 11 Role Performed <+> 11 Procedure <+> 11 Other Attendee 01/17/20 11:42:53 Medication Coordinator: VLADIMIR Modifier: SMITHML 9 <+> Time Out 9 <*> Procedure Cervical Discectomy Fusion Anterior 01/17/20 11:15:10 Medication Coordinator: VLADIMIR Modifier: SMITHML 1 <+> Time In 1 <*> Procedure Cervical Discectomy Fusion Anterior 2 <+> Time In 2 <*> Procedure Cervical Discectomy Fusion Anterior 3 <+> Time In 3 <*> Procedure Cervical Discectomy Fusion Anterior 4 <+> Time In 4 <*> Procedure Cervical Discectomy Fusion Anterior 5 <+> Time In 5 <*> Procedure Cervical Discectomy Fusion Anterior 6 <+> Time In 6 <*> Procedure Cervical Discectomy Fusion Anterior 7 <+> Time In 7 <*> Procedure Cervical Discectomy Fusion Anterior 8 <+> Time In 8 <*> Procedure Cervical Discectomy Fusion Anterior <+> 9 Case Attendee <+> 9 Role Performed <+> 9 Time In <+> 9 Procedure <+> 9 Other Attendee <+> 10 Case Attendee <+> 10 Role Performed <+> 10 Time In <+> [address] [facility] IntraOp Case Times Entry 1 Patient In Room Time 01/17/20 10:59:00 Out Room Time 01/17/20 12:24:00 Anesthesia Start Time 01/17/20 10:59:00 Stop Time 01/17/20 12:24:00 Surgery / Procedure Times Start Time 01/17/20 11:35:00 Stop Time 01/17/20 12:17:00 Last Modified By: SOFÍA LAMB RN 01/17/20 12:25:[address] [facility] IntraOp Case Times Audit 01/17/20 12:25:59 Medication Coordinator: VLADIMIR Modifier: SMITHML <+> 1 Out Room Time <+> 1 Stop Time <+> 1 Stop Time 01/17/20 11:35:19 Medication Coordinator: VLADIMIR Modifier: SMITHML <+> 1 Start Time [facility] IntraOp Cautery Entry 1 Entry 2 ESU Identification Cautery Type Monopolar ESU BiPolar ESU Cautery Type Comments ID Number [id number] ID Type Hospital Number Hospital Number Cautery Settings Cut Setting 40 8 Coag Setting 40 40 Blend Setting Bipolar Setting 40 Argon Setting Argon Garcia ESU Grounding Pad Ground Pad Type Adult Grounding Pad Type Comment Grounding Pad Site Right thigh Grounding Pad Site WNL Comment Grounding Pad Polly Wong Rn Applied By Grounding Pad Site Warm, Dry, Intact Skin Condition Before Cautery Site Skin Condition WDL Before Comment Grounding Pad Site Unchanged Skin Condition After Cautery Site Skin Condition WDL After Comment Last Modified By: SOFÍA LAMB RN SMITH, MYRIAH L., RN 01/17/20 11:39:25 01/17/20 11:58:[address] [facility] IntraOp Cautery Audit 01/17/20 11:58:35 Medication Coordinator: VLADIMIR Modifier: ADONISML <+> 2 Cautery Type <+> 2 Coag Setting <+> 2 Cut Setting <+> 2 ID Number <+> 2 ID Type 01/17/20 11:39:25 Medication Coordinator: VLADIMIR Modifier: SMITHML <+> 1 Cautery Type <+> 1 ID Number [facility] IntraOp Communication Entry 1 Communication To Family/Significant other Comment START Communication By Polly Wong Rn Date and Time 01/17/20 11:36:00 Last Modified By: SOFÍA LAMB RN 01/17/20 11:39:[address] [facility] IntraOp Counts Verification Entry 1 Procedure Cervical Discectomy Fusion Anterior Count Info Count Type Sponge, Sharps, Miscellaneous Counts Verification Baseline/pre-procedure Sequence Count Results Not Applicable Counts Performed By Count Performed By ANNA RAMOS ST (Scrub) Count Performed By Feliberto Young RN (RN) Last Modified By: SOFÍA LAMB RN 01/17/20 10:55:[address] [facility] IntraOp Counts Final Entry 1 Procedure Cervical Discectomy Fusion Anterior Final Count Info Count Type Sponge, Sharps, Miscellaneous Counts Verification Skin Closure/end of Sequence procedure Count Results Correct, surgeon notified Counts Performed By Count Performed By ANNA RAMOS ST (Scrub) Count Performed By Feliberto Young RN (RN) Last Modified By: SOFÍA LAMB RN 01/17/20 12:10:[address] [facility] IntraOp Counts Final Audit 01/17/20 12:10:51 Medication Coordinator: VLADIMIR Modifier: VLADIMIR Entry 1 was deleted. Higher numbered entries shifted one position to fill the gap. <-> 1 Procedure Cervical Discectomy Fusion Anterior <-> 1 Count Type Sponge, Sharps, Miscellaneous <-> 1 Count Results Correct, surgeon notified <-> 1 Count Performed By (Scrub) <-> 1 Count Performed By (RN) <-> 1 Counts Verification Sequence Skin Closure/end of procedure [facility] IntraOp Departure from OR Entry 1 Integumentary Assessment Integumentary WDL with patient Assessment WDL specific variances Patient's Normal OPSITE Integumentary Variance(s) Transfer/Handoff Transfer to PACU Phase I Handoff Method Bedside/Face to face, Phone call Post-op Transport Stretcher/Gurney Via Patient Transport JYOTSNA ANN PA-C, Accompanied by MARISEL MCCAULEY NA Last Modified By: SOFÍA LAMB RN 01/17/20 11:58:[address] [facility] IntraOp Departure from OR Audit 01/17/20 11:58:54 Medication Coordinator: VLADIMIR Modifier: VLADIMIR 1 <*> Handoff Method Phone call [facility] IntraOp Dressing and Packing Entry 1 Type Dressing Wound Dressing Item Steristrip, Occlusive dressing, Other Applied By JYOTSNA ANN PA-C Other Comments MASTISOL, STERISTRIPS, COVADERM Last Modified By: SOFÍA LAMB RN 01/17/20 11:43:[address] [facility] IntraOp Fire Risk Assessment Entry 1 Fire Info Surgical Site or 1- Yes Incision Above the Xyphoid Open O2 Source 0- No (Mask or Cannula) Available Ignition 1- Yes (ESU, Laser, Light Source) Fire Risk 2 Assessment Score Fire Score Fire Risk Yes Assessment Complete Fire Risk SOFÍA LAMB RN Assessment Verified By Fire Risk 01/17/20 10:56:00 Assessment Verified Date/Time Fire Risk Standard Fire Yes Safety Precautions Followed Last Modified By: SOFÍA LAMB RN 01/17/20 10:56:[address] [facility] IntraOp General Case Web Design Specialist 1 Case Information OR OR [facility] Case Level 1 Room Verified Yes Wound Class I - Clean Specialty SN Neurosurgery Anesthesia Type General ASA Class 3 Diagnosis Preop Diagnosis CERVICAL RADICULOPATHY M54.12 Postop Same As Preop No Postop Diagnosis SEE MD POST OP NOTES. Last Modified By: SOFÍA LAMB RN 01/17/20 11:45:[address] [facility] IntraOp General Case Data Audit 01/17/20 11:45:36 Medication Coordinator: VLADIMIR Modifier: SMITHML <+> 1 ASA Class <+> 1 Anesthesia Type <+> 1 Postop Same As Preop <+> 1 Preop Diagnosis <+> 1 Postop Diagnosis <+> 1 Room Verified [facility] IntraOp Implant Log Entry 1 Entry 2 Entry 3 Type Tissue Implant Implant (Synthetic) Implant (Synthetic) (Biologic) Implant Log Implant Type Hardware Hardware Tissue Implant Type Implant BONE VIVIGEN FORMABLE CAGE CERV BENGAL STD 7D PLT ANT SKYLN HYBRD Identification [id number] Description Implant Quantity 1 1 1 Implant Site CERVICAL SPINE OP SITE OP SITE Implant [id number] Identification Model Number Implant Identification Serial Number Implant Identification Lot Number Implant Lifenet:Lifenet J&J:Depuy:Depuy Spine J&J:Depuy:Depuy Spine Identification Transplant Srv Commercial Census Taker Name: Implant [id number] [id number] Identification Catalog Number Implant Size Implant Has an Yes Expiration Date Implant Expiration 12/15/20 Date Wasted Radioactive Material Time Implanted Tissue Implant Continue for Tissue Implant Documentation Tissue Identification Number Graft Prep Per Yes Commercial Census Taker Instructions: Tissue Preparation Method: Reconstitution Solution: Reconstitution Solution Lot Number Reconstitution Solution Expiration Date: Thawing Solution SALINE Thawing Solution Lot Number Thawing Solution Expiration Date Preparation Materials, Other Preparation Materials, Other Lot Number Preparation Materials, Other Expiration Date Tissue Prepared/Processed By Commercial Census Taker Yes Paperwork Completed Implant Type Comment Last Modified By: SOFÍA LAMB, SOFÍA MORALES RN SMITH, MYRIAH L., RN 01/17/20 12:04:28 01/17/20 12:08:01 01/17/20 12:08:01 Entry 4 Type Implant (Synthetic) Implant Log Implant Type Hardware Tissue Implant Type Implant SCR SKYLN VARI SD Identification [id number] Description Implant Quantity 4 Implant Site OP SITE Implant Identification Model Number Implant Identification Serial Number Implant Identification Lot Number Implant J&J:Depuy:Depuy Spine Identification Commercial Census Taker Name: Implant [id number] Identification Catalog Number Implant Size Implant Has an Expiration Date Implant Expiration Date Wasted Radioactive Material Time Implanted Tissue Implant Continue for Tissue Implant Documentation Tissue Identification Number Graft Prep Per Commercial Census Taker Instructions: Tissue Preparation Method: Reconstitution Solution: Reconstitution Solution Lot Number Reconstitution Solution Expiration Date: Thawing Solution Thawing Solution Lot Number Thawing Solution Expiration Date Preparation Materials, Other Preparation Materials, Other Lot Number Preparation Materials, Other Expiration Date Tissue Prepared/Processed By Commercial Census Taker Paperwork Completed Implant Type Comment Last Modified By: SOFÍA LAMB RN 01/17/20 12:08:[address] [facility] IntraOp Implant Log Audit 01/17/20 12:08:01 Medication Coordinator: VLADIMIR Modifier: VLADIMIR <+> 2 Implant Identification Description <+> 2 Implant Identification Commercial Census Taker Name: <+> 2 Implant Site <+> 2 Implant Quantity <+> 2 Implant Identification Catalog Number <+> 2 Implant Type <+> 2 Type <+> 3 Implant Identification Description <+> 3 Implant Identification Commercial Census Taker Name: <+> 3 Implant Site <+> 3 Implant Quantity <+> 3 Implant Identification Catalog Number <+> 3 Implant Type <+> 3 Type <+> 4 Implant Identification Description <+> 4 Implant Identification Commercial Census Taker Name: <+> 4 Implant Site <+> 4 Implant Quantity <+> 4 Implant Identification Catalog Number <+> 4 Implant Type <+> [address] [facility] IntraOp Intraoperative Assessment Entry 1 Handoff Method Online nursing summary Valid History / Yes Physical in Chart Preoperative Yes Checklist Reviewed/Evaluated Allergies Reviewed Yes Patient is Latex No Sensitive Isolation Not applicable Precautions Noted Level of WDL Consciousness (WDL = Alert, Oriented to Person, Place, and Time) Skin Assessment No Verified Present Upon IVs Arrival to OR Last Modified By: SOFÍA LAMB RN 01/17/20 11:46:[address] [facility] IntraOp Intraoperative Assessment Audit 01/17/20 11:46:55 Medication Coordinator: VLADIMIR Modifier: VLADIMIR 1 <+> Preoperative Checklist Reviewed/Evaluated 1 <+> Patient is Latex Sensitive 1 <*> Skin Assessment Verified Yes 1 <+> Present Upon Arrival to OR 1 <+> Valid History / Physical in Chart 1 <+> Handoff Method [facility] IntraOp Intraoperative Equipment Entry 1 Type Equipment Equipment Equipment Mayra Suction System ID Number [id number] Setting 200 MM HG Intraop Monitoring Electrocardiogram Five lead placement (ECG) Electrode Placement Blood Pressure Non-Invasive BP Device Source Blood Pressure Arm, right upper Location Pulse Oximeter Hand, left Probe Site Antiembolic Devices Antiembolic Devices Sequential compression device, knee high Antiembolic Device Bilateral Location Antiembolic Device [id number] ID Number Scopes Photo/Video Documentation Photo No Video No Last Modified By: SOFÍA LAMB RN 01/17/20 11:47:[address] [facility] IntraOp Medication Admin Entry 1 Entry 2 Entry 3 Medication/Irrigant Bacitracin 50,00units lidocaine 1% w/ thrombin 5000units powder vial epinephrine 1:100,000 topical powder - 30ml vial - [id number] Combo Med List Time Administered Route of ADDED TO NS IRRIGATION LOCAL TOPICAL Administration Dose Dose 48194 5 5000 Unit of Measure units ml units Volume Administered By CARLA VAZQUEZ TUTT, MATTHEW PAIGE, TUTT, MATTHEW PAIGE, MD-SNU MD-SNU MD-SNU Procedure Irrigation Irrigant Volume In Irrigant Volume Out Last Modified By: SOFÍA LAMB RN SMITH, MYRIAH L., RN SMITH, MYRIAH L., RN 01/17/20 11:52:50 01/17/20 11:52:50 01/17/20 11:52:50 Entry 4 Medication/Irrigant SPNG SURGFOAM [id number] Combo Med List Time Administered Route of TOPICAL Administration Dose Dose 1 Unit of Measure pkt Volume Administered By CARLA VAZQUEZ MD-SNU Procedure Irrigation Irrigant Volume In Irrigant Volume Out Last Modified By: SOFÍA LAMB RN 01/17/20 11:52:[address] [facility] IntraOp Patient Positioning Entry 1 Procedure Cervical Discectomy Fusion Anterior Body Position Supine Left Arm Position Tucked and padded at side Right Arm Position Tucked and padded at side Left Leg Position Uncrossed, parallel Right Leg Position Uncrossed, parallel Feet Uncrossed Yes Pressure Points Yes Checked Positioning Devices Head Rest, Pad, Elbow, Pillows, Roll, Shoulder, Safety Strap, Thighs Positioned By CARLA VAZQUEZ MD-SNU, SOFÍA LABM RN, Feliberto Young RN, MARISEL MCCAULEY, ADRIANNA Position Verified Positioning Yes Verified by Anesthesia Positioning Yes Verified by Surgeon Last Modified By: SOFÍA LAMB RN 01/17/20 11:50:34 [facility] IntraOp Sign In Entry 1 Patient, Site, Yes Procedure Identified Surgical Consent Yes Confirmed Relevant Surgical Yes Documents Available Surgical Site N/A Marked by person performing procedure Anesthesia Machine Yes Check Completed Medication Checks Yes Completed Allergies Yes Airway Difficult Yes Airway/Aspiration Risk Difficult Yes Airway/Aspiration Intervention Equipment Available Blood Loss Risk Yes Blood Loss Yes Intervention Equipment Prepared and Ready Blood Identifiers Not applicable Verified Per Policy Hypothermia Risk Yes Warming Measures Yes Taken Last Modified By: SOFÍA LAMB RN 01/17/20 12:00:19 [facility] IntraOp Sign In Audit 01/17/20 12:00:19 Medication Coordinator: VLADIMIR Modifier: ADONISML 1 <*> Difficult Airway/Aspiration Risk No 1 <*> Blood Loss Risk No [facility] IntraOp Sign Out Entry 1 RN Confirmation Surgical Yes Procedure(s) Identified Instrument, Sponge Yes and Sharps Counts Correct/Documented Equipment Problems Yes Documented Specimen Labeled Yes Correctly Urinary Catheter N/A Documented in IView Ayoub Patient Yes Recovery Concerns Reviewed with Anesthesia Provider, Surgeon and RN Ayoub Patient Yes Management Concerns Reviewed with Anesthesia Provider, Surgeon and RN Safety Checklist Yes Elements Complete? RN Sign Out SOFÍA LAMB RN Signature RN Sign Out 01/17/20 12:26:00 Signature Date/Time Plan of Care Outcome - Fire Risk OUTCOME STATEMENT: Goal met Patient is free from injury related to surgical fire Plan of Care Outcome - Pt Positioning OUTCOME STATEMENT: Goal met Absence of signs and symptoms of positioning injury. Plan of Care Outcome - Skin Prep OUTCOME STATEMENT: Goal met Intraoperative care is consistent with measures to prevent infection Plan of Care Outcome - Xray/Images OUTCOME STATEMENT: Goal met Absence of observable signs or symptoms of radiation injury Plan of Care Outcome - Counts OUTCOME STATEMENT: Goal met Absence of signs and symptoms of injury related to extraneous objects Last Modified By: SOFÍA LAMB RN 01/17/20 12:26:21 [facility] IntraOp Sign Out Audit 01/17/20 12:26:21 Medication Coordinator: VLADIMIR Modifier: SMITHML <+> 1 RN Sign Out Signature <+> 1 RN Sign Out Signature Date/Time [facility] IntraOp Skin Prep Entry 1 Entry 2 Procedure Cervical Discectomy Cervical Discectomy Fusion Anterior Fusion Anterior Prescribed Yes Yes Pre-Surgical Prep Completed Prep Area OP SITE OP SITE Intraop Prep Integumentary WDL WDL Assessment WDL WDL Patient Exceptions Patients Normal Integumentary Variance(s) Integumentary Assessment Comment Prep Agents Alcohol, Chlorhexadine Chloraprep gluconate Prep by CARLA VAZQUEZ Parker, Gwendolyn, Rn MD-SNU Skin Prep Comment Hair Removal Methods No hair removal No hair removal performed performed Hair Removal Site Hair Removal By Moses Modified By: SOFÍA LAMB RN SMITH, MYRIAH L., RN 01/17/20 12:00:43 01/17/20 11:46:[address] [facility] IntraOp Skin Prep Audit 01/17/20 12:00:43 Medication Coordinator: VLADIMIR Modifier: ADONISML 1 <*> Prep Agents Alcohol, Chlorhexadine gluconate 1 <*> Procedure Cervical Discectomy Fusion Anterior [facility] IntraOp Surgical Procedures Entry 1 Procedure Cervical Discectomy Fusion Anterior Additional (C5-6 ANTERIOR CERVICAL Procedure DISC & FUSION) Description Primary Procedure Yes Primary Surgeon CARLA VAZQUEZ MD-SNU Start 01/17/20 11:35:00 Stop 01/17/20 12:17:00 Anesthesia Type General Specialty Neurosurgery Wound Class I - Clean Last Modified By: SOFÍA LAMB RN 01/17/20 12:26:[address] [facility] IntraOp Surgical Procedures Audit 01/17/20 12:26:07 Medication Coordinator: VLADIMIR Modifier: SMITHML <+> [address] [facility] IntraOp Temp Regulation Devices Entry 1 Temp Regulation Temperature Forced Air Warming Regulation Device device, Room temperature, Warm blankets Temperature 80143 Regulation Device Serial/Unit Number Temperature MARISEL MCCAULEY NA Regulation Device Applied by Last Modified By: SOFÍA LAMB RN 01/17/20 12:03:[address] [facility] IntraOP Time Out Entry 1 Procedure to be Cervical Discectomy Performed Fusion Anterior Time Out Time Out Pause Time 01/17/20 11:34:00 All activity Yes suspended (unless life threatening emergency) Team Verbally Correct patient Confirms Information identity, Correct side and site are marked, Consent form is present and accurate, Agreement on the procedure to be done, Correct patient position, Relevant images/results properly labeled/appropriately displayed, Confirm antibiotics have been administered, Confirm the skin prep has dried, Confirm prosthesis/implant/devic e is present, Performed in location of procedure after prepped/draped Antibiotic Yes Prophylaxis Administered Or In Progress Within the Last 60 Minutes Beta Zach Yes Administered Venous Yes Thromboembolism Prophylaxis Required Anticipated Critical Events Surgeon None expected Anesthesia Provider None expected Nursing Assures Sterility of instruments, Equipment concerns or issues, Implant Availability, Other Essential Imaging Yes Labeled and Displayed Last Modified By: SOFÍA LAMB RN 01/17/20 11:36:[address] [facility] IntraOp X-Ray and Images Entry 1 X-Ray/Imaging Type Fluoroscopy Fluoroscopy Type C-Arm Site NECK Open Hearth Furnace Operator Name Christine Astorga, Diagnostic Rn Staff Protective Devices Yes Used Last Modified By: SOFÍA LAMB RN 01/17/20 12:02:29 Case Comments <None> Finalized By: VALENTIN GARCIA Document Signatures Signed By: SOFÍA LAMB RN 01/17/20 12:26 VALENTIN GARCIA 01/18/20 09:58 Unfinalized History Date/Time Username Reason for Unfinalizing Freetext Reason for Unfinalizing 01/18/20 09:57 [id number] Correct Billing Electronically signed by [facility] Conversion [employer]ner at 02/16/2023 4:04 PM CDT documented in this encounter Plan of Treatment Upcoming Encounters Date Type Department Care Team (Late st Contact Info) Description 03/10/2025 1:15 PM EDT Office Visit [facility] Cardiology - [address] [phone] Tabby Mcallister PA-C [address] [place] [address] [address] [place] [address] documented as of this encounter Visit Diagnoses Not on filedocumented in this encounter Care Teams Certified Medical Biller Relationship Specialty Start Date End Date Stacy Moise PA PCP - General 03/02/23 documented as of this encounter
--- OUTSIDE RECORDS SUMMARY | 2024-09-30 17:12 | XMS_ITS | Encounter Summary ---
Author Organization [employer] Address [address] [facility] [facility] [place] [address] Care Team Providers Care Relay Shop Supervisor Name Role Phone Stacy Moise Primary Care Provider [phone] Encounter Details Date Type Department Care Team (Late st Contact Info) Description 03/10/2020 Transcribed Document [facility] Family [place] [address] ProviderMireya MD [address] [place] [address] [id number] Social History Tobacco Use Types Packs/Day Years Used Date Smoking Tobacco: Never Assessed Sex and Gender Information Value Date Recorded Sex Assigned at Not on file Legal Sex Male 5:25 PM CDT Gender Identity Not on file Sexual Orientation Not on file documented as of this encounter Miscellaneous Notes * Cerner Conversion Note - Historical ProviderMD - 03/10/2020 11:51 PM CDT ED Discharge Entered On: 03/10/2020 23:57 EDT Performed On: 03/10/2020 23:51 EDT by Leroy Alvarez balancing machine operator Process Patient Disposition : Admit/Observe Personal Belongings With Patient : Yes Patient Education Completed : Yes Teaching Evaluation : Verbalizes understanding IV Discontinued : Not applicable Nursing Documentation Completed : Yes Leroy Alvarez RN - 03/10/2020 23:51 EDT Admission, ED Nurse Report Accepted By : RN verbalized understanding of poc `Nurse Report (Hand Off) : Called Mode Of Departure : Wheelchair Leroy Alvarez RN - 03/10/2020 23:51 EDT documented in this encounter Plan of Treatment Upcoming Encounters Date Type Department Care Team (Late st Contact Info) Description 03/10/2025 1:15 PM EDT Office Visit [facility] Cardiology - [place] [address] [place] [address] Tabby Mcallister PA-Yuliana 227 [facility] [address] [place] [address] documented as of this encounter Visit Diagnoses Not on filedocumented in this encounter Care Teams Relay Shop Supervisor Relationship Specialty Start Date End Date Stacy Moise PA PCP - General 03/02/23 documented as of this encounter
--- OUTSIDE RECORDS SUMMARY | 2024-09-30 17:12 | XMS_ITS | Encounter Summary ---
Author Organization [employer] Address [address] [facility] [address] Care Team Providers Care Book Author Name Role Phone Stacy Moise Primary Care Provider Encounter Details Date Type Department Care Team (Late st Contact Info) Description 01/13/2020 Transcribed Document [facility] [place] [address] ProviderMireya MD [address] [place] [address] [id number] Social History Tobacco Use Types Packs/Day Years Used Date Smoking Tobacco: Never Assessed Sex and Gender Information Value Date Recorded Sex Assigned at Not on file Legal Sex Male 5:25 PM CDT Gender Identity Not on file Sexual Orientation Not on file documented as of this encounter Miscellaneous Notes * Cerner Conversion Note - Mireya ProviderMD - 01/13/2020 11:00 AM CDT PAT Adult Entered On: 01/13/2020 11:01 EDT Performed On: 01/13/2020 11:00 EDT by QUOC HALL RN Vital Measurements Temperature Source : Temporal artery scanning Temperature Mode : Fahrenheit Temperature, Fahrenheit : 95.8 Deg F (LOW) Clinical Temperature, C : 35.4 Deg C Pulse Method : Pulse Oximetry Peripheral Pulse Rate : 56 bpm (LOW) Blood Pressure Location : Arm, left upper Blood Pressure Source : Non-Invasive BP Device Blood Pressure Position : Sitting Systolic Blood Pressure : 142 mmHg (HI) Diastolic Blood Pressure : 79 mmHg Oxygen Saturation : 98 % Oxygen Therapy Mode : Room air QUOC HALL RN - 01/13/2020 11:42 EDT Pain Assessment Pain Assessment : Initial assessment Pain Scale Goal : 4 QUOC HALL RN - 01/13/2020 11:42 EDT Height and Weight, Clinical Dosing Height Source : Measured Height Entry Format : [place] Height, Feet : 0 ft(Converted to: 0 cm, 0 Inch) Height, Inches : 69 Inch(Converted to: 5 ft 9 Inch, 175.26 cm) Clinical Height : 175.26 cm Weight Source : Standing scale Weight Entry Format : [place] Clinical Dosing Weight : 78.75 kg Weight, Pounds : 173 lb Weight, Ounces : 4 oz Body Surface Area (BSA) : 1.95 m2 Body Mass Index : 25.6 kg/m2 (HI) [place] Body Weight : 70 kg QUOC HALL RN - 01/13/2020 11:00 EDT Health Histories Smoking Status : 10 or more cigarettes (1/2 pack or more)/day in last 30 days Smokeless Tobacco Status : Never Desires Tobacco Cessation Medication : Yes QUOC HALL RN - 01/13/2020 11:29 EDT Social History (As Of: 01/13/2020 11:30:59 EDT) Tobacco: Smoking Status Current every day [...] by SON DUMONT PA-C) Infectious Disease History COVID19 Screening : No Physical contact outside [place] in the last 30 days : No Infectious Disease History : Chicken pox/Shingles, Measles, Mumps, Pertussis (Whooping cough) Tuberculosis Symptoms : None QUOC HALL RN - 01/13/2020 11:00 EDT Anesthesia/Transfusion History Family History of Anesthesia Reaction : No prior transfusion(s) Blood Transfusion Acceptable to Patient : Yes Transfusion History : Prior anesthesia without reaction Family History of Anesthesia Reaction : None QUOC HALL RN - 01/13/2020 11:16 EDT Advance Directive Patient has Advance Directive *Q : No, patient refuses Advance Directive information QUOC HALL RN - 01/13/2020 11:16 EDT Spiritual/Cultural Needs Any Spiritual/Cultural Needs or Requests : No QUOC HALL RN - 01/13/2020 11:16 EDT Kay Suicide Severity Rating Scale (C-SSRS) CSSRS Past Month Wish to be : No CSSRS Past Month Suicidal Thoughts : No CSSRS Lifetime Suicide Behavior : No Suicide Severity Rating Score : 0 Suicide Severity Rating : No Additional Care Required at this time QUOC HALL RN - 01/13/2020 11:29 EDT Psychosocial History Do You Have a History of the Following? : Patient denies history Currently in Unsafe Situation : No QUOC HALL RN - 01/13/2020 11:29 EDT Teaching/Learning Assessment Barriers To Learning : None evident Individuals Taught : Patient, Spouse Readiness to Learn : Cooperative QUOC HALL RN - 01/13/2020 11:42 EDT Education Topics, Periop Preadmission Perioperative Education Grid Arrival Time/Place : Verbalizes understanding CHG Preoperative Bathing/Cloths : Verbalizes understanding Falls : Verbalizes understanding Infection Control : Verbalizes understanding IV's : Verbalizes understanding NPO Status/Directions : Verbalizes understanding Pain Management : Verbalizes understanding Preprocedure Preparations : Verbalizes understanding Preprocedure Tests/Labs : Verbalizes understanding Responsible Adult : Verbalizes understanding Take/Hold Medications Pre-Procedure : Verbalizes understanding Other : Verbalizes understanding (Comment: Bactroban [QUOC HALL RN - 01/13/2020 11:42 EDT] ) General Info Preferred Name : scottie Support Person/Patient Water Ski Assembler : Yes Support Person/Pt Rep Contact Information : tony el [phone] Want Family/Rep/Phys Notified of Admit : No Emergency Contact #1 : Tony Bansal Emergency Contact #1 Emergency Contact #1 Relationship : Emergency Contact #2 : n Emergency Contact #2 Phone Number : n Emergency Contact #2 Relationship : n Information Obtained From : Patient Primary Language : [place] African Preferred Communication Mode : Verbal Communication Barrier : Other: hard of hearing QUOC HALL RN - 01/13/2020 11:42 EDT Reed Scale Reed Sensory Perception : Slightly limited Reed Moisture : Rarely moist Reed Activity : Walks frequently Reed Mobility : No limitation Reed Nutrition : Excellent Reed Friction and Shear : No apparent problem Reed Score : 22 QUOC HALL RN - 01/13/2020 11:42 EDT Sleep Apnea Risk Assmt Hx of Obstructive Sleep Apnea Diagnosis : No Snore Loudly : Yes Tired, Fatigued, or Sleepy During Day : No Observed Stopping Breathing During Sleep : Yes Have/Are Being Treated for Hypertension : Yes BMI Greater Than 35 kg/m2 : No Age over 50 Years Old : Yes Neck Circumference Greater Than 40 cm : No Gender Male : Yes STOP-BANG Sleep Apnea Risk Level Score : 5 QUOC HALL RN - 01/13/2020 11:16 EDT Electronically signed by [facility] Conversion Academic Support Specialist Cerner at 02/16/2023 3:46 PM CDT documented in this encounter Plan of Treatment Upcoming Encounters Date Type Department Care Team (Late st Contact Info) Description 03/10/2025 1:15 PM EDT Office Visit [facility] Cardiology - [place] [address] [place] [address] Tabby Mcallister PA-C [address] [address] documented as of this encounter Visit Diagnoses Not on filedocumented in this encounter Care Teams Book Author Relationship Specialty Start Date End Date Stacy Moise PA PCP - General 03/02/23 documented as of this encounter
--- OUTSIDE RECORDS SUMMARY | 2024-09-30 17:12 | XMS_ITS | Encounter Summary ---
Author Organization [employer] Address [address] [place] [address] Care Team Providers Care Strategic Sourcing Specialist Name Role Phone Stacy Moise Primary Care Provider [phone] Encounter Details Date Type Department Care Team (Late st Contact Info) Description 01/17/2020 Historic Encounter [facility] [address] [place] [address] ProviderJuan Historical Social History Tobacco [...] Office Visit [facility] Cardiology - [place] [address] [place] [address] Tabby Mcallister PA-C [address] [place] [address] [address] [place] [address] documented as of this encounter Procedures Procedure Name Priority Date/Time Associated Diagnosis Comments GLUCOSE-POC Routine 01/17/2020 12:35 PM EDT documented in this encounter Results * (ABNORMAL) Glucose, Point of Care (01/17/2020 12:35 PM EDT) Glucose POC2 149(H) 70 - 110 mg/dL 01/17/2020 4:35 PM EDT [facility] Director Auto [id number] 01/17/2020 4:35 PM EDT [facility] Device SN [id number] 01/17/2020 4:35 PM EDT [facility] Device Comment1 No action Require 01/17/2020 4:35 PM EDT [facility] Blood 01/17/2020 12:3 5 PM EDT 01/17/2020 4:40 PM EDT [facility] Historical Provider POINT OF CARE TEST ORDE LORRAINE Final Result [facility] [address] [phone] documented in this encounter Visit Diagnoses Not on filedocumented in this encounter Care Teams Strategic Sourcing Specialist Relationship Specialty Start Date End Date Stacy Moise PA PCP - General 03/02/23 documented as of this encounter
--- OUTSIDE RECORDS SUMMARY | 2024-09-30 17:12 | XMS_ITS | Encounter Summary ---
Author Organization [employer] Address [address] [place] [address] Care Team Providers Care Hash Slinger Name Role Phone Stacy Moise Primary Care Provider [phone] Encounter Details Date Type Department Care Team (Late st Contact Info) Description 06/13/2019 Transcribed Document [facility] [place] [address] ProviderMireya MD [address] [place] [address] [id number] Social History Tobacco Use Types Packs/Day Years Used Date Smoking Tobacco: Never Assessed Sex and Gender Information Value Date Recorded Sex Assigned at Not on file Legal Sex Male 5:25 PM CDT Gender Identity Not on file Sexual Orientation Not on file documented as of this encounter Miscellaneous Notes * Cerner Conversion Note - Mireya Osuna MD - 06/13/2019 4:50 PM CDT Patient Education Materials Follows: General Anesthesia, Adult, Care After This sheet [...] activities are safe for you. ??? Take rija-yji-whofrzf and prescription medicines only as told by [...] 01/25/2002 Document Revised: 06/04/2018 Document Reviewed: 06/04/2018 [employer] Interactive Patient Education ? 2019 [employer]. Angiogram, Care After This sheet gives you [...] and water are not available, use hand fruit worker. ? Change your dressing as told by [...] care provider approves. ??? You may shower 24?48 hours after [...] by your health care provider, usually for 1?2 days. ??? Do not [...] contrast dye from your body. ??? Take hupn-zil-jixmlfc and prescription medicines only as told by [...] 05/07/2006 Document Revised: 09/23/2017 Document Reviewed: 09/23/2017 [employer] Interactive Patient Education ? 2019 [employer]. Groin Site Care Refer to this sheet [...] 01/10/2013 Document Reviewed: 11/21/2011 ExitCare? Patient Information ?2013 [employer]. documented in this encounter Plan of Treatment Upcoming Encounters Date Type Department Care Team (Late st Contact Info) Description 03/10/2025 1:15 PM EDT Office Visit [facility] Cardiology - [place] [address] [place] [address] Tabby Mcallister PA-C [address] [address] documented as of this encounter Visit Diagnoses Not on filedocumented in this encounter Care Teams Hash Slinger Relationship Specialty Start Date End Date Stacy Moise PA PCP - General 03/02/23 documented as of this encounter
--- OUTSIDE RECORDS SUMMARY | 2024-09-30 17:12 | XMS_ITS | Encounter Summary ---
Author Organization [facility] [employer] Address [address] [place] [address] Care Team Providers Care Business Integration Manager Name Role Phone Stacy Moise Primary Care Provider Encounter Details Date Type Department Care Team (Late st Contact Info) Description 03/08/2020 Historic Encounter [facility] [address] [place] [address] ProviderJuan Historical Social History Tobacco [...] [facility] Cardiology - [place] [address] [place] [address] Tabby Mcallister PA-C [address] [place] [address] [address] [place] [address] documented as of this encounter Procedures Procedure Name Priority Date/Time Associated Diagnosis Comments PLATELET COUNT Routine 03/08/2020 9:42 AM EDT documented in this encounter Results * Platelet count (03/08/2020 9:42 AM EDT) Platelet Count 360 163 - 369 K/uL 03/08/2020 2:05 PM EDT Blood 03/08/2020 9:42 AM EDT 03/08/2020 2:04 PM EDT us Sle Historical Provider LAB BLOOD ORDERABLES Fi nal Result [facility] [address] [phone] documented in this encounter Visit Diagnoses Not on filedocumented in this encounter Care Teams Business Integration Manager Relationship Specialty Start Date End Date Stacy Moise PA PCP - General 03/02/23 documented as of this encounter
--- OUTSIDE RECORDS SUMMARY | 2024-09-30 17:12 | XMS_ITS | Encounter Summary ---
Author Organization [facility] [employer] Address [address] [facility] [place] [address] Care Team Providers Care Protection Manager Name Role Phone Stacy Moise Primary Care Provider Encounter Details Date Type Department Care Team (Late st Contact Info) Description 01/13/2020 Historic Encounter [facility] [address] [place] [address] ProviderJuan Historical Social History Tobacco [...] [facility] Cardiology - [place] [address] [place] [address] Tabby Mcallister PA-C [address] [place] [address] [address] [place] [address] documented as of this encounter Procedures Procedure Name Priority Date/Time Associated Diagnosis Comments BMP BASIC METABOLIC PANEL ([facility] BKR DATA CONV) Routine 01/13/2020 11:47 AM EDT documented in this encounter Results * (ABNORMAL) BMP BASIC METABOLIC PANEL ([facility] BKR DATA CONV) (01/13/2020 11:47 AM EDT) Glucose Level 123(H) 74 - 106 mg/dL 01/13/2020 4:18 PM EDT Comment: [employer] has become aware of sulfasalazine and sulfapyridine [...] Urea Nitrogen 20 7 - 22 mg/dL 01/13/2020 4:18 PM EDT Creatinine Level 0.90 0.70 - 1.30 mg/dL 01/13/2020 4:18 PM EDT Sodium Level 138 136 - 146 mmol/L 01/13/2020 4:18 PM EDT Potassium Level 4.3 3.5 - 5.1 mmol/L 01/13/2020 4:18 PM EDT Chloride Level 106 102 - 112 mmol/L 01/13/2020 4:18 PM EDT Carbon Dioxide Level 26 21 - 32 mmol/L 01/13/2020 4:18 PM EDT Anion Gap 10 9 - 20 01/13/2020 4:18 PM EDT Calcium Level 9.4 8.4 - 10.1 mg/dL 01/13/2020 4:18 PM EDT Bun/Creatinine 22.2(H) 8.0 - 20.0 01/13/2020 4:18 PM EDT eGFR NonAfrican >60 >=60 mL/min/1. 73m2 01/13/2020 4:19 PM EDT Comment: GFR <60 suggests chronic kidney disease, if found over 3 month period. GFR <15 indicates renal failure. eGFR >60 >=60 mL/min/1. 73m2 01/13/2020 4:19 PM EDT Comment: GFR <60 suggests chronic kidney disease, if found over 3 month period. GFR <15 indicates renal failure. Blood 01/13/2020 11:4 7 AM EDT 01/13/2020 3:57 PM EDT us Sle Historical Provider LAB BLOOD ORDERABLES Fi nal Result [facility] [address] [phone] documented in this encounter Visit Diagnoses Not on filedocumented in this encounter Care Teams Protection Manager Relationship Specialty Start Date End Date Stacy Moise PA PCP - General 03/02/23 documented as of this encounter
--- OUTSIDE RECORDS SUMMARY | 2024-09-30 17:12 | XMS_ITS | Encounter Summary ---
Author Organization [employer] Address [address] [place] [address] Care Team Providers Care Hot Roll Inspector Name Role Phone Stacy Moise Primary Care Provider [phone] Encounter Details Date Type Department Care Team (Late st Contact Info) Description 03/10/2020 Transcribed Document [facility] Family [place] [address] ProviderMireya MD [address] [place] [address] [phone] Social History Tobacco Use Types Packs/Day Years Used Date Smoking Tobacco: Never Assessed Sex and Gender Information Value Date Recorded Sex Assigned at Not on file Legal Sex Male 5:25 PM CDT Gender Identity Not on file Sexual Orientation Not on file documented as of this encounter Miscellaneous Notes * Cerner Conversion Note - Mireya ProviderMD - 03/10/2020 6:11 PM CDT [place] Suicide Severity Rating Scale (C-SSRS) Entered On: 03/10/2020 18:53 EDT Performed On: 03/10/2020 18:53 EDT by MALINA MANDUJANO RN [place] Suicide Severity Rating Scale (C-SSRS) CSSRS Past Month Wish to be : No CSSRS Past Month Suicidal Thoughts : No CSSRS Lifetime Suicide Behavior : No Suicide Severity Rating Score : 0 Suicide Severity Rating : No Additional Care Required at this time MALINA MANDUJANO RN - 03/10/2020 18:53 EDT documented in this encounter Plan of Treatment Upcoming Encounters Date Type Department Care Team (Late st Contact Info) Description 03/10/2025 1:15 PM EDT Office Visit [facility] Cardiology - [place] [address] [place] [address] Tabby Mcallister PA-Yuliana 227 [facility] [address] [place] [address] documented as of this encounter Visit Diagnoses Not on filedocumented in this encounter Care Teams Hot Roll Inspector Relationship Specialty Start Date End Date Stacy Moise PA PCP - General 03/02/23 documented as of this encounter
--- OUTSIDE RECORDS SUMMARY | 2024-09-30 17:12 | XMS_ITS | Encounter Summary ---
Author Organization [employer] Address [address] [place] [address] Care Team Providers Care Marketing Ambassador Name Role Phone Stacy Moise Primary Care Provider [phone] Encounter Details Date Type Department Care Team (Late st Contact Info) Description 01/17/2020 Transcribed Document [facility] [place] [address] ProviderMireya MD [address] [place] [phone] Social History Tobacco Use Types Packs/Day Years Used Date Smoking Tobacco: Never Assessed Sex and Gender Information Value Date Recorded Sex Assigned at Not on file Legal Sex Male 5:25 PM CDT Gender Identity Not on file Sexual Orientation Not on file documented as of this encounter Miscellaneous Notes * Cerner Conversion Note - Mireya Osuna MD - 01/17/2020 2:29 PM CDT Patient Education Materials Follows: Outpatient Surgery, Adult, Care After These instructions [...] and water are not available, use hand coin counter and wrapper. ? Change your dressing as told by [...] or a bad smell. Medicines ??? Take ugfg-kha-nkirfxu and prescription medicines only as told by [...] 02/08/2017 Document Revised: 05/27/2018 Document Reviewed: 02/08/2017 [employer] Interactive Patient Education ? 2019 [employer] documented in this encounter Plan of Treatment Upcoming Encounters Date Type Department Care Team (Late st Contact Info) Description 03/10/2025 1:15 PM EDT Office Visit [facility] Cardiology - [address] [address] Tabby Mcallister PA-C [address] [address] documented as of this encounter Visit Diagnoses Not on filedocumented in this encounter Care Teams Marketing Ambassador Relationship Specialty Start Date End Date Stacy Moise PA PCP - General 03/02/23 documented as of this encounter
--- OUTSIDE RECORDS SUMMARY | 2024-09-30 17:12 | XMS_ITS | Encounter Summary ---
Author Organization [facility] [employer] Address [address] [place] [address] Care Team Providers Care Willow Analyst Name Role Phone Stacy Moise Primary Care Provider [phone] Encounter Details Date Type Department Care Team (Late st Contact Info) Description 12/29/2018 Historic Encounter [facility] [address] [place] [address] ProviderJuan Historical Social History Tobacco [...] [facility] Cardiology - [place] [address] [place] [address] Tabby Mcallister PA-C [address] [place] [address] [address] [place] [address] documented as of this encounter Procedures Procedure Name Priority Date/Time Associated Diagnosis Comments ABO/RH - [place] ([place] BKR) Routine 12/29/2018 9:10 AM EST documented in this encounter Results * ABO/Rh (12/29/2018 9:10 AM EST) Hx Check OPOS/NEG 12/29/2018 2:54 PM EST Method SP 12/29/2018 2:54 PM EST Anti-A 0 12/29/2018 2:50 PM EST Anti-B 0 12/29/2018 2:50 PM EST Anti-D1 3+ 12/29/2018 2:50 PM EST Anti-D2 3+ 12/29/2018 2:50 PM EST Con 0 12/29/2018 2:50 PM EST A1 2+ 12/29/2018 2:50 PM EST B 2+ 12/29/2018 2:50 PM EST ABO/Rh (ECHO) O POS 12/29/2018 2:54 PM EST Blood 12/29/2018 9:10 AM EST 12/29/2018 2:24 PM EST [facility] Historical Provider [facility] BLOOD BANK TEST ORD ERABLES Final Result [facility] [address] [phone] documented in this encounter Visit Diagnoses Not on filedocumented in this encounter Care Teams Willow Analyst Relationship Specialty Start Date End Date Stacy Moise PA PCP - General 03/02/23 documented as of this encounter
--- OUTSIDE RECORDS SUMMARY | 2024-09-30 17:12 | XMS_ITS | Encounter Summary ---
Author Organization [employer] Address [address] [place] [address] Care Team Providers Care Packing Room Worker Name Role Phone Stacy Moise Primary Care Provider [phone] Encounter Details Date Type Department Care Team (Late st Contact Info) Description 12/29/2018 Transcribed Document [facility] [address] [facility] [address] [place] [address] Leroy Wagner MD [address] [place] [address] [address] [place] [address] Social History Tobacco Use Types Packs/Day Years Used Date Smoking Tobacco: Never Assessed Sex and Gender Information Value Date Recorded Sex Assigned at Not on file Legal Sex Male 5:25 PM CDT Gender Identity Not on file Sexual Orientation Not on file documented as of this encounter Miscellaneous Notes * Cerner Conversion Note - Leroy Wagner MD - 12/29/2018 1:21 PM EST DATE OF PROCEDURE:12/29/2018 PRIMARY CARE PHYSICIAN: Christiano May MD PREOPERATIVE DIAGNOSIS(ES): L5-S1 foraminal stenosis with severe radiculopathy unresponsive to conservative management. POSTOPERATIVE DIAGNOSIS(ES): L5-S1 foraminal stenosis with severe radiculopathy unresponsive to conservative management. INDICATION FOR PROCEDURE: L5-S1 foraminal stenosis with severe radiculopathy unresponsive to conservative management. PROCEDURE: An L5-S1 transforaminal lumbar interbody fusion-minimally invasive. SURGEON: Leroy Wagner MD PRINCIPAL DATABASE DEVELOPER: NADIA Ordaz TYPE OF ANESTHESIA: GEA. DESCRIPTION OF PROCEDURE IN DETAIL: Once consent was noted to be on chart, Mr. Bansal was taken to the operating room. He was anesthetized and placed into the prone position on Bo spine frame. All pressure points were checked. He was prepped and draped in usual sterile fashion. Preoperative antibiotics were given. A time-out was called. A low-dose CT scan was performed for planning the skin incisions lateral to L5-S1 and for placement of two Steinmann pins into the right iliac crest. Two pin fixator was placed on these pins and reference array for further stereotactic navigation. A 10 blade was used to make a vertical incision 5 cm off the midline over L5-S1. A tubular dilator system was docked on the left. The registration was verified. The operating microscope was brought into the field. A high-speed drill and #2 and #3 Kerrison was used to perform a minimally invasive laminectomy. The ligamentum flavum was removed. A complete facetectomy was performed on the left side. Full decompression of the exiting L5 and descending nerve root was achieved. The disk space was exposed. A complete discectomy was performed. A carbon fiber spacer packed with allograft and autograft was placed into the disk space. Stereotactic navigation verified good position of the cage. We again verified that the exiting L5 and descending S1 nerve roots were free. The wound was copiously irrigated. No CSF was visualized throughout this procedure. The retractor was removed. A repeat CT scan was performed. Using this information, the DePuy Viper Prime system pedicle screws were placed 45 x 6 mm into L5 and S1 bilaterally. With screws in place, a lamberto was placed from L5-S1 and set screws were torqued to factory specifications. The wound was copiously irrigated. The extension tabs removed. 1 Vicryl reapproximated the fascia, 2-0 Vicryl closed space and closed the skin subcuticularly. The skin was stapled. Bacitracin and Covaderm was applied. Oliver Helms assisted throughout the surgery and helped performing the closure. SPECIMEN SENT: None. ESTIMATED BLOOD LOSS: 75 mL. DRAINS: None. COMPLICATIONS: None. Leroy Wagner M.D. Dict: 12/29/2018 12:21:41 Trans: 12/29/2018 13:29:47 CC1: Leroy Wagner M.D. CC2: Christiano May MD documented in this encounter Plan of Treatment Upcoming Encounters Date Type Department Care Team (Late st Contact Info) Description 03/10/2025 1:15 PM EDT Office Visit [facility] Cardiology - [place] [address] [place] [address] Tabby Mcallister PA-C [address] [facility] [address] [place] [address] documented as of this encounter Visit Diagnoses Not on filedocumented in this encounter Care Teams Packing Room Worker Relationship Specialty Start Date End Date Stacy Moies PA PCP - General 03/02/23 documented as of this encounter
--- OUTSIDE RECORDS SUMMARY | 2024-09-30 17:12 | XMS_ITS | Encounter Summary ---
Author Organization [employer] Address [address] [facility] [place] [address] Care Team Providers Care Engagement Executive Name Role Phone Stayc Moise Primary Care Provider Encounter Details Date Type Department Care Team (Late st Contact Info) Description 03/10/2020 Transcribed Document [facility] [place] Family Medicine [facility] [place] [address] ProviderMireya MD [address] [place] [id number] Social History Tobacco Use Types Packs/Day Years Used Date Smoking Tobacco: Never Assessed Sex and Gender Information Value Date Recorded Sex Assigned at Not on file Legal Sex Male 5:25 PM CDT Gender Identity Not on file Sexual Orientation Not on file documented as of this encounter Miscellaneous Notes * Cerner Conversion Note - Mireya ProviderMD - 03/10/2020 6:11 PM CDT ED Triage Entered On: 03/10/2020 18:43 EDT Performed On: 03/10/2020 18:38 EDT by MALINA MANDUJANO RN ED Triage Across the Room Chief Complaint : Pt presents to the ER with numbness to the left side of his face that started around 1600 this afternoon. Also reports slight dizziness. A&Ox4. Ambulatory to triage. Denies HX of CVA or TIA MALINA MANDUJANO RN - 03/10/2020 18:46 EDT Triage Date/Time : 03/10/2020 18:38 EDT MALINA MANDUJANO RN - 03/10/2020 18:38 EDT DCP GENERIC CODE Tracking Group : [facility] ED Tracking Acuity : 2 - Emergent MALINA MANDUJANO RN - 03/10/2020 18:38 EDT Mode of Arrival : Ambulatory Transported to ED by : Walk in To Room Via : Wheelchair Accompanied By : Spouse ED Vital Signs : Document Height & Weight : Document ED Allergies : Document ED Reason for Visit : Document Tetanus Immunization : Unknown MALINA MANDUJANO RN - 03/10/2020 18:38 EDT Infectious Disease History Has the patient ever been tested for COVID-19? : No, Patient stated COVID19 Screening : No Experiencing Infectious Disease Symptoms : No symptoms Physical contact outside [place] in the last 30 days : No Infectious Disease History : Chicken pox/Shingles, Measles, Mumps, Pertussis (Whooping cough) Tuberculosis Symptoms : None MALINA MANDUJANO RN - 03/10/2020 18:38 EDT Vital Signs ED Temperature Source : Oral Temperature Mode : Fahrenheit Temperature, Fahrenheit : 98.2 Deg F Clinical Temperature, C : 36.8 Deg C Oxygen Therapy Mode : Room air Respiratory Rate : 18 Breaths/Min Oxygen Saturation : 98 % MALINA MANDUJANO RN - 03/10/2020 18:38 EDT Allergy (As Of: 03/10/2020 18:43:11 EDT) Allergies (Active) No Known Medication Allergies Estimated Onset Date: Unspecified ; Created By: SHEILA MARTINEZ RN; Reaction Status: Active ; Category: Drug ; Substance: No Known Medication Allergies ; Type: Allergy ; Updated By: SHEILA MARTINEZ RN; Reviewed Date: 03/10/2020 18:38 EDT Diagnosis Control ED (As Of: 03/10/2020 18:43:11 EDT) Problems(Active) Anemia (hx of) (SNOMED CT :713118866 ) Name of Problem: Anemia (hx of) ; Recorder: QUOC HALL RN; Confirmation: Confirmed ; Classification: Medical ; Code: [id number] ; Contributor System: PowerChart ; Last Updated: 01/13/2020 11:12 EDT ; Life Cycle Date: 01/13/2020 ; Life Cycle Status: Active ; Vocabulary: SNOMED CT Angina (hx of, Last had in 2016) (SNOMED CT :906828518 ) Name of Problem: Angina (hx of, Last had in 2016) ; Recorder: RENETTA TRAYLOR RN; Confirmation: Confirmed ; Classification: Medical ; Code: [id number] ; Contributor System: PowerChart ; Last Updated: 01/13/2020 11:09 EDT ; Life Cycle Status: Active ; Vocabulary: SNOMED CT Aortic valve disease (SNOMED CT :47446304 ) Name of Problem: Aortic valve disease ; Recorder: Jhon Perez RN; Confirmation: Confirmed ; Classification: Medical ; Code: 17998136 ; Contributor System: PowerChart ; Last Updated: 05/24/2015 21:46 EDT ; Life Cycle Date: 05/24/2015 ; Life Cycle Status: Active ; Vocabulary: SNOMED CT Arthritis (SNOMED CT :9222872 ) Name of Problem: Arthritis ; Recorder: RENETTA TRAYLOR RN; Confirmation: Confirmed ; Classification: Medical ; Code: 3071896 ; Contributor System: PowerChart ; Last Updated: 12/23/2018 11:50 EST ; Life Cycle Date: 12/23/2018 ; Life Cycle Status: Active ; Vocabulary: SNOMED CT At risk for sleep apnea (IMO :63650851 ) Name of Problem: At risk for sleep apnea ; Recorder: SYSTEM, SYSTEM; Confirmation: Confirmed ; Classification: Medical ; Code: 67077324 ; Last Updated: 12/23/2018 12:09 EST ; Life Cycle Date: 12/23/2018 ; Life Cycle Status: Active ; Vocabulary: IMO Back pain (SNOMED CT :4258546795 ) Name of Problem: Back pain ; Recorder: RENETTA TRAYLOR RN; Confirmation: Confirmed ; Classification: Medical ; Code: 1351246570 ; Contributor System: PowerChart ; Last Updated: 12/23/2018 11:50 EST ; Life Cycle Date: 12/23/2018 ; Life Cycle Status: Active ; Vocabulary: SNOMED CT CAD (coronary artery disease) (SNOMED CT :91266413 ) Name of Problem: CAD (coronary artery disease) ; Recorder: Jhon Perez RN; Confirmation: Confirmed ; Classification: Medical ; Code: 67251998 ; Contributor System: PowerChart ; Last Updated: 05/24/2015 21:45 EDT ; Life Cycle Date: 05/24/2015 ; Life Cycle Status: Active ; Vocabulary: SNOMED CT Cervical spinal stenosis (SNOMED CT :926941329 ) Name of Problem: Cervical spinal stenosis ; Recorder: QUOC HALL RN; Confirmation: Confirmed ; Classification: Medical ; Code: 357326765 ; Contributor System: PowerChart ; Last Updated: 01/13/2020 11:13 EDT ; Life Cycle Date: 01/13/2020 ; Life Cycle Status: Active ; Vocabulary: SNOMED CT Claudication (SNOMED CT :901567264 ) Name of Problem: Claudication ; Recorder: ALFREDA CASTILLO; Confirmation: Confirmed ; Classification: Medical ; Code: 715101730 ; Contributor System: PowerChart ; Last Updated: 06/13/2019 12:55 EDT ; Life Cycle Date: 06/13/2019 ; Life Cycle Status: Active ; Vocabulary: SNOMED CT Colorectal surgery (SNOMED CT :0285543883 ) Name of Problem: Colorectal surgery ; Recorder: QUOC HALL RN; Confirmation: Confirmed ; Classification: Medical ; Code: 8209588277 ; Contributor System: PowerChart ; Last Updated: 01/13/2020 11:12 EDT ; Life Cycle Date: 01/13/2020 ; Life Cycle Status: Active ; Vocabulary: SNOMED CT Disorder of prostate (SNOMED CT :69922205 ) Name of Problem: Disorder of prostate ; Recorder: LILIANA CAMILO RN; Confirmation: Confirmed ; Classification: Patient Stated ; Code: 19434988 ; Contributor System: PowerChart ; Last Updated: 04/19/2018 9:14 EDT ; Life Cycle Date: 04/19/2018 ; Life Cycle Status: Active ; Vocabulary: SNOMED CT Diverticulitis///HX (SNOMED CT :349174962 ) Name of Problem: Diverticulitis///HX ; Recorder: RENETTA TRAYLOR RN; Confirmation: Confirmed ; Classification: Medical ; Code: 993545139 ; Contributor System: PowerChart ; Last Updated: 12/23/2018 11:46 EST ; Life Cycle Date: 12/23/2018 ; Life Cycle Status: Active ; Vocabulary: SNOMED CT Dizzy spells (occasional) (SNOMED CT :949426144 ) Name of Problem: Dizzy spells (occasional) ; Recorder: QUOC HALL RN; Confirmation: Confirmed ; Classification: Medical ; Code: 489822530 ; Contributor System: PowerChart ; Last Updated: 01/13/2020 11:16 EDT ; Life Cycle Date: 01/13/2020 ; Life Cycle Status: Active ; Vocabulary: SNOMED CT Fatty liver (SNOMED CT :625783380 ) Name of Problem: Fatty liver ; Recorder: QUOC HALL RN; Confirmation: Confirmed ; Classification: Medical ; Code: 472487343 ; Contributor System: PowerChart ; Last Updated: 01/13/2020 11:14 EDT ; Life Cycle Date: 01/13/2020 ; Life Cycle Status: Active ; Vocabulary: SNOMED CT GERD - Gastro-esophageal reflux disease (SNOMED CT :2757845190 ) Name of Problem: GERD - Gastro-esophageal reflux disease ; Recorder: RENETTA TRAYLOR RN; Confirmation: Confirmed ; Classification: Medical ; Code: 4890061306 ; Contributor System: PowerChart ; Last Updated: 12/23/2018 11:49 EST ; Life Cycle Date: 12/23/2018 ; Life Cycle Status: Active ; Vocabulary: SNOMED CT Hard of hearing (SNOMED CT :961450853 ) Name of Problem: Hard of hearing ; Recorder: LILIANA CAMILO RN; Confirmation: Confirmed ; Classification: Patient Stated ; Code: 226331876 ; Contributor System: PowerChart ; Last Updated: 04/19/2018 9:13 EDT ; Life Cycle Date: 04/19/2018 ; Life Cycle Status: Active ; Vocabulary: SNOMED CT Has been smoking for 30 years ([address] CT :772773033 ) Name of Problem: Has been smoking for 30 years ; Recorder: Nieves Fraga, Registered Nurse; Confirmation: Confirmed ; Classification: Patient Stated ; Code: 590130577 ; Contributor System: PowerChart ; Last Updated: 03/08/2020 10:17 EDT ; Life Cycle Date: 03/08/2020 ; Life Cycle Status: Active ; Vocabulary: SNOMED CT High cholesterol (SNOMED CT :32272488 ) Name of Problem: High cholesterol ; Recorder: Jhon Perez RN; Confirmation: Confirmed ; Classification: Medical ; Code: 48994658 ; Contributor System: PowerChart ; Last Updated: 05/24/2015 21:46 EDT ; Life Cycle Date: 05/24/2015 ; Life Cycle Status: Active ; Vocabulary: SNOMED CT HTN (hypertension) (SNOMED CT :6567426160 ) Name of Problem: HTN (hypertension) ; Recorder: Jhon Perez, MIKE; Confirmation: Confirmed ; Classification: Medical ; Code: 0467398659 ; Contributor System: PowerChart ; Last Updated: 05/24/2015 21:45 EDT ; Life Cycle Date: 05/24/2015 ; Life Cycle Status: Active ; Vocabulary: SNOMED CT Murmur (SNOMED CT :191331072 ) Name of Problem: Murmur ; Recorder: RENETTA TRAYLOR RN; Confirmation: Confirmed ; Classification: Medical ; Code: 551704525 ; Contributor System: PowerChart ; Last Updated: 12/23/2018 11:49 EST ; Life Cycle Date: 12/23/2018 ; Life Cycle Status: Active ; Vocabulary: SNOMED CT Peripheral vascular disease (SNOMED CT :8600394591 ) Name of Problem: Peripheral vascular disease ; Recorder: LILIANA CAMILO RN; Confirmation: Confirmed ; Classification: Patient Stated ; Code: 0010016626 ; Contributor System: PowerChart ; Last Updated: 04/19/2018 9:13 EDT ; Life Cycle Date: 04/19/2018 ; Life Cycle Status: Active ; Vocabulary: SNOMED CT Prediabetes (SNOMED CT :1168792260 ) Name of Problem: Prediabetes ; Recorder: QUOC HALL RN; Confirmation: Confirmed ; Classification: Medical ; Code: 7438036423 ; Contributor System: PowerChart ; Last Updated: 01/13/2020 11:12 EDT ; Life Cycle Date: 01/13/2020 ; Life Cycle Status: Active ; Vocabulary: SNOMED CT Prostatitis/ (SNOMED CT :97061841 ) Name of Problem: Prostatitis/ ; Recorder: RENETTA TRAYLOR RN; Confirmation: Confirmed ; Classification: Medical ; Code: 38278692 ; Contributor System: PowerChart ; Last Updated: 12/23/2018 11:47 EST ; Life Cycle Status: Active ; Vocabulary: SNOMED CT Renal calculus///HX (SNOMED CT :528176019 ) Name of Problem: Renal calculus///HX ; Recorder: RENETTA TRAYLOR RN; Confirmation: Confirmed ; Classification: Medical ; Code: 365109932 ; Contributor System: PowerChart ; Last Updated: 12/23/2018 11:50 EST ; Life Cycle Date: 12/23/2018 ; Life Cycle Status: Active ; Vocabulary: SNOMED CT Stented coronary artery (SNOMED CT :6721457096 ) Name of Problem: Stented coronary artery ; Recorder: RENETTA TRAYLOR RN; Confirmation: Confirmed ; Classification: Medical ; Code: 2685343896 ; Contributor System: CamioCam ; Last Updated: 12/23/2018 11:48 EST ; Life Cycle Date: 12/23/2018 ; Life Cycle Status: Active ; Vocabulary: SNOMED CT Diagnoses(Active) Dizziness Date: 03/10/2020 ; Diagnosis Type: Reason For Visit ; Confirmation: Complaint of ; Clinical Dx: Dizziness ; Classification: Medical ; Clinical Service: Emergency medicine ; Code: PNED ; Probability: 0 ; Diagnosis Code: [id number] Paresthesia Date: 03/10/2020 ; Diagnosis Type: Reason For Visit ; Confirmation: Complaint of ; Clinical Dx: Paresthesia ; Classification: Medical ; Clinical Service: Emergency medicine ; Code: PNED ; Probability: 0 ; Diagnosis Code: [id number] ED Height and Weight Height Source : Stated Height Entry Format : [place] Height, Feet : 5 ft(Converted to: 152 cm, 60 Inch) Height, Inches : 9 Inch(Converted to: 0 ft 9 Inch, 22.86 cm) Clinical Height : 175.26 cm Weight Source, ED : Critical estimated dosing weight Weight Entry Format : [place] Weight, Pounds : 170 lb Clinical Dosing Weight : 77.27 kg Body Surface Area (BSA) : 1.93 m2 Body Mass Index : 25.2 kg/m2 (HI) [place] Body Weight (IBW) : 69.73 kg MALINA MANDUJANO RN - 03/10/2020 18:38 EDT documented in this encounter Plan of Treatment Upcoming Encounters Date Type Department Care Team (Late st Contact Info) Description 03/10/2025 1:15 PM EDT Office Visit [facility] Cardiology - [address] [address] Tabby Mcallister PA-C [address] [address] documented as of this encounter Visit Diagnoses Not on filedocumented in this encounter Care Teams Engagement Executive Relationship Specialty Start Date End Date Stacy Moise PA PCP - General 03/02/23 documented as of this encounter
--- OUTSIDE RECORDS SUMMARY | 2024-09-30 17:12 | XMS_ITS | Encounter Summary ---
Author Organization [employer] Address [address] [facility] [place] [address] Care Team Providers Care Ip Architect Name Role Phone Stacy Moise Primary Care Provider [phone] Encounter Details Date Type Department Care Team (Late st Contact Info) Description 12/30/2018 Transcribed Document [facility] [place] Family [facility] [place] [address] ProviderMireya MD [address] [place] [id number] Social History Tobacco Use Types Packs/Day Years Used Date Smoking Tobacco: Never Assessed Sex and Gender Information Value Date Recorded Sex Assigned at Not on file Legal Sex Male 5:25 PM CDT Gender Identity Not on file Sexual Orientation Not on file documented as of this encounter Miscellaneous Notes * Cerner Conversion Note - Historical ProviderMD - 12/30/2018 8:57 AM COMMERCIAL PAINTER Discharge Summary, PT Entered On: 12/30/2018 8:58 EST Performed On: 12/30/2018 8:57 EST by BROOKE TRAYLOR, PT Discharge Summary Discharge Summary Comment, PT : min A sit to/from stand, no goals met due to discharged soon after eval BROOKE TRAYLOR PT - 12/30/2018 8:58 EST Discharge Summary Provider Notified : Physical Therapy Reason for Discharge : Discharged from hospital Discharged to, Therapy : Home, with family care Discharge Equipment, PT : None BROOKE TRAYLOR, PT - 12/30/2018 8:57 EST Shelter Goals Mobility/Bed Mobility LTG PT Grid Goal #1 Goal #2 Activity : Supine to sit Sit to stand Assist : Independent, modified Independent, modified Date to Meet : 01/12/2019 EDT 01/12/2019 EDT Goal Status : Not met Not met Comment : via logroll BROOKE TRAYLOR, PT - 12/30/2018 8:57 EST BROOKE TRAYLOR, PT - 12/30/2018 8:57 EST Ambulation LTG Grid Goal #1 Device : Walker, front wheel Distance : 300ft Assist : Independent, modified Date to Meet : 01/12/2019 EDT Goal Status : Not met BROOKE TRAYLOR, PT - 12/30/2018 8:57 EST Electronically signed by [facility] Conversion Cigarette Machine Operator Cerner at 02/16/2023 3:50 PM CDT documented in this encounter Plan of Treatment Upcoming Encounters Date Type Department Care Team (Late st Contact Info) Description 03/10/2025 1:15 PM EDT Office Visit [facility] Cardiology - [place] [address] [place] [address] Tabby Mcallister PA-C [address] [facility] [address] [place] [address] documented as of this encounter Visit Diagnoses Not on filedocumented in this encounter Care Teams Ip Architect Relationship Specialty Start Date End Date Stacy Moise PA PCP - General 03/02/23 documented as of this encounter
--- OUTSIDE RECORDS SUMMARY | 2024-09-30 17:12 | XMS_ITS | Encounter Summary ---
Author Organization [employer] Address [address] [facility] [place] [address] Care Team Providers Care Assistant Manager Trainee Name Role Phone Stacy Moise Primary Care Provider [phone] Encounter Details Date Type Department Care Team (Late st Contact Info) Description 12/29/2018 Transcribed Document [facility] Radiology [address] [place] [address] Lio Sheridan MD [address] [place], [place] [id number] Social History Tobacco Use Types Packs/Day Years Used Date Smoking Tobacco: Never Assessed Sex and Gender Information Value Date Recorded Sex Assigned at Not on file Legal Sex Male 5:25 PM CDT Gender Identity Not on file Sexual Orientation Not on file documented as of this encounter Miscellaneous Notes * Cerner Conversion Note - Lio Sheridan MD - 12/29/2018 9:46 AM EST Patient: SCOTTIE CURRAN Age: 73 years Sex: Male : 1945 Associated Diagnoses: None Author: MAYCOL CORLEY NP-EKATERINA 12/29/18 cc: medical management s/p L5-S1 TLIF per Dr. Wagner HPI: Patient is a 73 yo male admitted to [facility] per Dr. Wagner for an L5-S1 TLIF. Preoperatively patient was found to have advanced spondylolisthesis of the lumbar spine and elected surgical intervention after failing conservative treatment. Patient is followed perioperatively while hospitalized for medical management. Initial visit with presleysandra magallon where he was accompanied by numerous family members. he reports being treated for prostatitis and has beenon cipro for [address] Escobar. Patient denies any recent exacerbations of chronic medical problems. Patient denies recent cardiopulmonary symptoms in the weeks leading up to surgery. He does have hx of CAD with multiple heart stents, last in 2007. He did receive cardiac clearance from alysa Mcallister. Patient denies recent fever, chills or nightsweats. Patient denies recent sinus infection, bronchitis, or pneumonia. Denies recent asthma exacerbations. Denies gastroenteritis, did have a colectomy due to diveticulitis, takes fiber daily. Denies chest pain, pressure or palpitations. Denies recent med changes by PCP. Patients physical limitations are limited by left hip/leg disability. Past Med Hx: Angina//last seversl years Aortic valve disease Arthritis At risk for sleep apnea Back pain CAD (coronary artery disease) Cataract///extraction Disorder of prostate Diverticulitis///HX GERD - Gastro-esophageal reflux disease Hard of hearing High cholesterol HTN (hypertension) Left hip pain//left leg Murmur Peripheral vascular disease Prostatitis///12/2018 Renal calculus///HX Stented coronary artery Past Surgical hx: heart cath in 2017 at 72 Years. cardiac stents. left lower extremity vascular stent. hand surgery. S/P cholecystectomy ([id number]). colon resection. Cataract surgery ([id number]). Colonoscopy ([id number]). renal stent///2018. right leg balloon. Family Hx: CAD (mother, father) Social & Psychosocial Habits Alcohol 11/18/2016 Alcohol Use History, Social Habits Yes Alcohol Use Frequency Rarely Home/Environment 07/21/2014 Lives with: Spouse Living situation: Home/Independent Substance Abuse 12/23/2018 Recreational Drug Use History No Recreational Drug Use Last 12 Months No Tobacco 11/18/2016 Smoking Status Current every day smoker Years of Tobacco Use 55 Packs/Tins Daily 1 Allergies (1) Active Reaction No Known Medication Allergies None Documented Home Medications (16) Active Aspir 81 81 mg, Oral, Daily Bystolic 10 mg oral tablet 10 mg = 1 Tab, Oral, Daily Cipro 500 mg, Oral, Q12H Crestor 10 mg oral tablet 10 mg = 1 Tab, Oral, EveryOtherDay Flonase 2 [place], Nasal, EveryOtherDay furosemide 20 mg oral tablet [...] release 20 mEq = 1 Tab, Oral, BID Proscar 5 mg, Oral, Daily ZyrTEC 10 mg, PRN, Oral, Daily ROS: Constitutional: [No fevers, chills, sweats] Eye: [No recent visual problems] HEENT: [No ear pain, nasal congestion] Respiratory: [No shortness of breath, cough] Cardiovascular: [No Chest pain, palpitations, syncope] Gastrointestinal: [No nausea, vomiting, diarrhea, constipation] Genitourinary: [No hematuria, dysuria] Musculoskeletal: [+left hip pain, +left leg pain, decreased range of motion] Integumentary: [No rash, puritus] Psychiatric: [No anxiety, depression] Exam: Vitals Signs (last 24 hrs) Last Charted Minimum Maximum Temp 98 (DEC 29 08:52) 98 (DEC 29 08:52) 98 (DEC 29 08:52) Periph HR 97 (DEC 29 08:52) 97 (DEC 29 08:52) 97 (DEC 29 08:52) SBP H 143 (DEC 29 08:52) H 143 (DEC 29 08:52) H 143 (DEC 29 08:52) DBP 75 (DEC 29 08:52) 75 (DEC 29 08:52) 75 (DEC 29 08:52) PE: elderly white male, pleasant, cooperative, good historian, seen in preop, family at bedside nc/at, eomi, PEERL, pink conjunctiva, drymucous membranes, no thyromegaly or cervical lymphadenopathy =expansion b/l , inspiratory wheezing non-displaced PMI, S1S2 ABD is , soft non-tender, non-distended, norm bowel sounds skin warm, dry without rashes ext: no low ext edema, no calf tenderness neuro: cn 2-12 intact; no gross motor -sensory deficits psych: appropriate affect and mood Data: reviewed CBC, BMP WBC 11.5 reviewed card note- 2015 echo EF 60%, mild robert dysfunction, 2017 heart cath, patient stents Impression: spondylolisthesis Lspine, awaiting L5-S1 TLIF per Dr. Wagner Prostatitis///12/2018 - currently on cipro daily tobacco use hx Angina//last seversl years hx Aortic valve disease hx Arthritis hx At risk for sleep apnea hx Back pain hx CAD (coronary artery disease) hx Cataract///extraction hx Disorder of prostate hx Diverticulitis///HX hx GERD - Gastro-esophageal reflux disease hx Hard of hearing hx High cholesterol hx HTN (hypertension) hx Left hip pain//left leg hx Murmur hx Peripheral vascular disease hx Renal calculus hx Stented coronary artery Plan: smoking cessation: NRT continue cipro x 2 days A1C in am resume ASA in am Monitor HTN; add PRN's, hold parameters bowel regimen- resume daily psyllium incentive spirometer PT/OT DVT prophylaxis noted Pain management deferred to surgeon will monitor hb/hct daily for signs of ongoing acute blood loss will monitor bun/cr daily for signs of dehydration, prerenal azotemia will monitor for signs/symptoms of post-op wound infection or hospital acquired infectious process resume outpatient medication regimen for comorbidities Assessment and treatment plan made in conjunction with Alec Sheridan MD see supporting data below *Scribed by Nabila OlsonTaylor [facility] Status Allergies: Allergic Reactions (Selected) No Known Medication Allergies, Allergies (1) Active Reaction No Known Medication Allergies None Documented Current medications: (Selected) Inpatient Medications Ordered triamcinolone acetonide 40 mg/mL injectable suspension 40 mg + ketorolac 15 mg + bupivacaine 0.25%...: 40 mg, 1 mL, 0 mL/Hr, Miscellaneous, 1-Time Documented Medications Documented Aspir 81: 81 mg, Oral, Daily, 0 Refill(s) Bystolic 10 mg oral tablet: 1 Tab, Oral, Daily, 0 Refill(s) Cipro: 500 mg, Oral, Q12H, 0 Refill(s) Crestor 10 mg oral tablet: 1 Tab, Oral, EveryOtherDay, 0 Refill(s) Flonase: 2 [place], Nasal, EveryOtherDay, 0 Refill(s) Konsyl: Oral, EveryOtherDay, 0 Refill(s) [...] Proscar: 5 mg, Oral, Daily, 0 Refill(s) ZyrTEC: 10 mg, Oral, Daily, PRN: as needed for allergy symptoms, 0 Refill(s) furosemide 20 mg oral tablet: 1 Tab, Oral, Daily, 0 Refill(s) isosorbide mononitrate: 30 mg, Oral, QAM, 0 Refill(s) potassium chloride 20 mEq oral tablet, extended release: 1 Tab, Oral, BID, 0 Refill(s), Home Medications (16) Active Aspir 81 81 mg, Oral, Daily Bystolic 10 mg oral tablet 10 mg = 1 Tab, Oral, Daily Cipro 500 mg, Oral, Q12H Crestor 10 mg oral tablet 10 mg = 1 Tab, Oral, EveryOtherDay Flonase 2 [place], Nasal, EveryOtherDay furosemide 20 mg oral tablet [...] release 20 mEq = 1 Tab, Oral, BID Proscar 5 mg, Oral, Daily ZyrTEC 10 mg, PRN, Oral, Daily , Medications (1) Active Scheduled: (1) triamcinolone acet 40 mg + ketorolac 15 mg + bupivacaine 0.25% 30 mL + syringe 1 Each 40 mg 1 mL, Miscellaneous, 1-Time Continuous: (0) PRN: (0) Problem list: Medical Angina//last seversl years / SNOMED CT 110976563 / Confirmed Aortic valve disease / SNOMED CT 04772432 / Confirmed Arthritis / SNOMED CT 5691589 / Confirmed At risk for sleep apnea / IMO 43447441 / Confirmed Back pain / SNOMED CT 1316616774 / Confirmed Cataract///extraction / SNOMED CT 173898258 / Confirmed CAD (coronary artery disease) / SNOMED CT 01535777 / Confirmed Diverticulitis///HX / SNOMED CT 182525807 / Confirmed GERD - Gastro-esophageal reflux disease / SNOMED CT 6566926993 / Confirmed Murmur / SNOMED CT 554452940 / Confirmed Left hip pain//left leg / SNOMED CT 55798663 / Confirmed High cholesterol / SNOMED CT 93684105 / Confirmed HTN (hypertension) / SNOMED CT 5096050869 / Confirmed Prostatitis// / SNOMED CT 19876127 / Confirmed Renal calculus///HX / SNOMED CT 072498320 / Confirmed Stented coronary artery / SNOMED CT 8763506907 / Confirmed, Active Problems (19) Angina//last seversl years Aortic valve disease Arthritis At risk for sleep apnea Back pain CAD (coronary artery disease) Cataract///extraction Disorder of prostate Diverticulitis///HX GERD - Gastro-esophageal reflux disease Hard of hearing High cholesterol HTN (hypertension) Left hip pain//left leg Murmur Peripheral vascular disease Prostatitis// Renal calculus///HX Stented coronary artery Objective VS/Measurements No qualifying data available documented in this encounter Plan of Treatment Upcoming Encounters Date Type Department Care Team (Late st Contact Info) Description 03/10/2025 1:15 PM EDT Office Visit [facility] Cardiology - [place] [address] [place] [address] Alysa Mcallister PA-Yuliana [address] [facility] [address] [place] [address] documented as of this encounter Visit Diagnoses Not on filedocumented in this encounter Care Teams Assistant Manager Trainee Relationship Specialty Start Date End Date Stacy Moise PA PCP - General 03/02/23 documented as of this encounter
--- OUTSIDE RECORDS SUMMARY | 2024-09-30 17:12 | XMS_ITS | Encounter Summary ---
Author Organization [employer] Address [address] [facility] [place] [address] Care Team Providers Care Cylinder Worker Name Role Phone Stacy Moise Primary Care Provider [phone] Encounter Details Date Type Department Care Team (Late st Contact Info) Description 03/10/[address] [facility] [place] [address] ProviderMireya MD [address] [place] [address] Social History Tobacco Use Types Packs/Day Years Used Date Smoking Tobacco: Never Assessed Sex and Gender Information Value Date Recorded Sex Assigned at Not on file Legal Sex Male 5:25 PM CDT Gender Identity Not on file Sexual Orientation Not on file documented as of this encounter Miscellaneous Notes * Cerner Conversion Note - Mireya Osuna MD - 03/10/2020 7:42 PM CDT Education-(VTE) / (DVT) Entered On: 03/11/2020 1:30 EDT Performed On: 03/11/2020 0:10 EDT by JOHNSON JACKMAN RN Teaching/Learning Assessment Barriers To Learning : None evident Individuals Taught : Patient Readiness to Learn : Cooperative Learning Style Preferences Patient : Verbal explanation Learning Style Preferences Family : Verbal explanation JOHNSON JACKMAN RN - 03/11/2020 1:30 EDT Education Topics: VTE/DVT Education Topics: VTE/DVT Activity Limitations/Expectations : Verbalizes understanding VTE/DVT prophylaxis : Verbalizes understanding Medications : Verbalizes understanding Risk for developing a VTE : Verbalizes understanding Signs and symptoms of a VTE : Verbalizes understanding Treatment/prophylaxis for VTE : Verbalizes understanding JOHNSON JACKMAN RN - 03/11/2020 1:30 EDT documented in this encounter Plan of Treatment Upcoming Encounters Date Type Department Care Team (Late st Contact Info) Description 03/10/2025 1:15 PM EDT Office Visit [facility] Cardiology - [place] [address] [place] [address] Tabby Mcallister PA-C [address] [facility] [address] [place] [address] documented as of this encounter Visit Diagnoses Not on filedocumented in this encounter Care Teams Cylinder Worker Relationship Specialty Start Date End Date Stacy oMise PA PCP - General 03/02/23 documented as of this encounter
--- OUTSIDE RECORDS SUMMARY | 2024-09-30 17:12 | XMS_ITS | Encounter Summary ---
Author Organization [facility] [employer] Address [address] [facility] [place] [address] Care Team Providers Care Senior Software Manager Name Role Phone Stacy Moise Primary Care Provider [phone] Encounter Details Date Type Department Care Team (Late st Contact Info) Description 01/17/2020 Transcribed Document [facility] [place] [address] [place] [address] ProviderMireya MD [address] [place] [id number] Social History Tobacco Use Types Packs/Day Years Used Date Smoking Tobacco: Never Assessed Sex and Gender Information Value Date Recorded Sex Assigned at Not on file Legal Sex Male 5:25 PM CDT Gender Identity Not on file Sexual Orientation Not on file documented as of this encounter Miscellaneous Notes * Cerner Conversion Note - Mireya Osuna MD - 01/17/2020 11:[address] [facility] Main OR PostOp Summary Primary Physician: CARLA VAZQUEZ MD-TOMEKA Finalized Date/Time: 01/17/20 14:58:08 Pt. Name: SCOTTIE CURRAN ERIKA /Sex: 1945 Male Med Rec #: [id number] Physician: CARLA VAZQUEZ MD-TOMEKA Financial #: [id number] Pt. Type: O Room/Bed: Admit/Disch: 01/17/20 06:45:00 - Institution: [facility] Main OR PostOp Case Times Entry 1 In PACU II 01/17/20 13:28:00 Ready for PACU II 01/17/20 14:26:00 Discharge Discharge from PACU 01/17/20 14:55:00 II Last Modified By: TALYA KISER RN 01/17/20 14:58:07 [facility] Main OR PostOp Case Times Audit 01/17/20 14:58:07 Supervisor Transferring And Boxing: PARMINDER Modifier: [email or web address] 1 <*> In PACU II 01/17/20 13:50:00 1 <+> Discharge from PACU II Finalized By: TALYA KISER RN Document Signatures Signed By: TALYA KISER RN 01/17/20 14:58 Electronically signed by Juarez [facility] Conversion Molder [employer] Cerner at 02/16/2023 3:52 PM CDT documented in this encounter Plan of Treatment Upcoming Encounters Date Type Department Care Team (Late st Contact Info) Description 03/10/2025 1:15 PM EDT Office Visit [facility] Cardiology - [place] [address] [place] [address] Tabby Mcallister PA-C [address] [facility] [address] [place] [address] documented as of this encounter Visit Diagnoses Not on filedocumented in this encounter Care Teams Senior Software Manager Relationship Specialty Start Date End Date Stacy Moise PA PCP - General 03/02/23 documented as of this encounter
--- OUTSIDE RECORDS SUMMARY | 2024-09-30 17:12 | XMS_ITS | Encounter Summary ---
Author Organization [employer] Address [address] [facility] [place] [address] Care Team Providers Care Real Estate Administrative Assistant Name Role Phone Stacy Moise Primary Care Provider [phone] Encounter Details Date Type Department Care Team (Late st Contact Info) Description 03/08/2020 Historic Encounter [facility] [address] [place] [address] ProviderJuan Historical Social History Tobacco [...] Office Visit [facility] Cardiology - [place] [address] [place] [address] Tabby Mcallister PA-C [address] [place] [address] [address] [place] [address] documented as of this encounter Procedures Procedure Name Priority Date/Time Associated Diagnosis Comments CHEM8+ POC Routine 03/08/2020 10:00 AM EDT documented in this encounter Results * (ABNORMAL) Chem8+ POC (03/08/2020 10:00 AM EDT) Sodium POC 141 138 - 146 mmol/L 03/08/2020 2:00 PM EDT [facility] Potassium POC 3.9 3.5 - 4.9 mmol/L 03/08/2020 2:00 PM EDT [facility] Chloride POC 106 98 - 109 mmol/L 03/08/2020 2:00 PM EDT [facility] CO2 POC 25.0 24.0 - 29.0 mmol/L 03/08/2020 2:00 PM EDT [facility] Anion Gap POC 15.0 10.0 - 20.0 mmol/L 03/08/2020 2:00 PM EDT [facility] Ca Ionized POC 1.28 1.12 - 1.32 mmol/L 03/08/2020 2:00 PM EDT [facility] Glucose POC 133(H) 70 - 105 mg/dL 03/08/2020 2:00 PM EDT [facility] BUN POC 18 8 - 26 mg/dL 03/08/2020 2:00 PM EDT [facility] Creatinine POC 1.0 0.6 - 1.3 mg/dL 03/08/2020 2:00 PM EDT [facility] eGFR 88 >=60 mL/min/1. 73m2 03/09/2020 4:30 PM EDT [facility] eGFR NonAfrican 73 >=60 mL/min/1. 73m2 03/09/2020 4:30 PM EDT [facility] Hemoglobin POC 15.3 12.0 - 17.0 Gram/dL 03/08/2020 2:00 PM EDT [facility] Hematocrit POC 45.0 38.0 - 51.0 % 03/08/2020 2:00 PM EDT [facility] Riprap Man [id number] 03/08/2020 2:00 PM EDT [facility] Device SN [id number] 03/08/2020 2:00 PM EDT [facility] Blood 03/08/2020 10:0 0 AM EDT 03/09/2020 4:30 PM EDT us Sleh Historical Provider POINT OF CARE TEST MICHAEL PETERS Final Result [facility] [address] [phone] documented in this encounter Visit Diagnoses Not on filedocumented in this encounter Care Teams Real Estate Administrative Assistant Relationship Specialty Start Date End Date Stacy Moise PA PCP - General 03/02/23 documented as of this encounter
--- OUTSIDE RECORDS SUMMARY | 2024-09-30 17:12 | XMS_ITS | Encounter Summary ---
Author Organization [facility] In iatives Address [address] [place] [address] Care Team Providers Care System Software Programmer Name Role Phone Stacy Moise Primary Care Provider Encounter Details Date Type Department Care Team (Late st Contact Info) Description 06/13/2019 Transcribed Document [facility] Family Medicine [address] [place] [address] ProviderMireya MD [address] [place] [address] [id number] Social History Tobacco Use Types Packs/Day Years Used Date Smoking Tobacco: Never Assessed Sex and Gender Information Value Date Recorded Sex Assigned at Not on file Legal Sex Male 5:25 PM CDT Gender Identity Not on file Sexual Orientation Not on file documented as of this encounter Miscellaneous Notes * Cerner Conversion Note - Mireya Osuna MD - 06/13/2019 2:48 PM CDT [facility] Main OR IntraOp Summary Primary Physician: JANN RAUSCH MD-SUR Finalized Date/Time: 06/14/19 13:11:02 Pt. Name: SCOTTIE CURRAN ERIKA /Sex: 1945 Male Med Rec #: [id number] Physician: JANN RAUSCH MD-SUR Financial #: [id number] Pt. Type: O Room/Bed: Admit/Disch: 06/13/19 11:41:00 - 06/13/19 18:06:00 Institution: [facility] IntraOp Case Attendance Entry 1 Entry 2 Entry 3 Case Attendee JANN RAUSCH MD-SUR Dimple Art RN Sherlock, Kristi, Angiography Tech Role Performed Surgeon/Proceduralist, Electronic Security Technician, First Hog Driver First Time In 06/13/19 14:30:00 06/13/19 14:30:00 06/13/19 14:30:00 Time Out 06/13/19 15:30:00 06/13/19 15:30:00 06/13/19 15:30:00 Procedure Aortogram Abdominal Aortogram Abdominal Aortogram Abdominal with Runoff(Left), with Runoff(Left), with Runoff(Left), Angioplasty Angioplasty Angioplasty Percutaneous Percutaneous Percutaneous Transluminal, Arterial Transluminal, Arterial Transluminal, Arterial Stent Endovascular Stent Endovascular Stent Endovascular Other Attendee Superficial Wound Closed By: Last Modified By: GER VILLARREAL RN SHANES, ROBERT, RN SHANES, ROBERT, RN 06/13/19 15:31:24 06/13/19 15:31:24 06/13/19 15:31:24 Entry 4 Entry 5 Entry 6 Case Attendee OTHER, ATTENDEE #1 ANGELITO MCCAULEY Crna SHANES, ROBERT, MIKE Role Performed Vendor SENIOR TREASURY CONSULTANT/Nurse Appliance Line Assembler Electronic Security Technician, First Time In 06/13/19 14:30:00 06/13/19 14:30:00 06/13/19 14:30:00 Time Out 06/13/19 15:30:00 06/13/19 15:30:00 06/13/19 15:30:00 Procedure Aortogram Abdominal Aortogram Abdominal Aortogram Abdominal with Runoff(Left), with Runoff(Left), with Runoff(Left), Angioplasty Angioplasty Angioplasty Percutaneous Percutaneous Percutaneous Transluminal, Arterial Transluminal, Arterial Transluminal, Arterial Stent Endovascular Stent Endovascular Stent Endovascular Other Attendee [facility] Superficial Wound Closed By: Last Modified By: Dimple Art RN SHANES, ROBERT, RN SHANES, ROBERT, RN 06/13/19 14:16:49 06/13/19 15:31:24 06/13/19 15:31:24 Entry 7 Case Attendee CARLA ROMERO MD Role Performed Anesthesiologist of Record Time In 06/13/19 14:30:00 Time Out 06/13/19 15:30:00 Procedure Aortogram Abdominal with Runoff(Left), Angioplasty Percutaneous Transluminal, Arterial Stent Endovascular Other Attendee Superficial Wound Closed By: Last Modified By: GER VILLARREAL RN 06/13/19 15:31:24 [facility] IntraOp Case Attendance Audit 06/13/19 15:31:24 Turbine Blade Assembler: SARAH Modifier: SHANESR 1 <+> Time Out 1 <*> Procedure Aortogram Abdominal with Runoff(Left), Angioplasty Percutaneous Transluminal, Arterial Stent Endovascular 2 <+> Time Out 2 <*> Procedure Aortogram Abdominal with Runoff(Left), Angioplasty Percutaneous Transluminal, Arterial Stent Endovascular 3 <+> Time Out 3 <*> Procedure Aortogram Abdominal with Runoff(Left), Angioplasty Percutaneous Transluminal, Arterial Stent Endovascular 4 <+> Time Out 4 <*> Procedure Aortogram Abdominal with Runoff(Left), Angioplasty Percutaneous Transluminal, Arterial Stent Endovascular 5 <+> Time Out 5 <*> Procedure Aortogram Abdominal with Runoff(Left), Angioplasty Percutaneous Transluminal, Arterial Stent Endovascular 6 <+> Time Out 6 <*> Procedure Aortogram Abdominal with Runoff(Left), Angioplasty Percutaneous Transluminal, Arterial Stent Endovascular 7 <+> Time Out 7 <*> Procedure Aortogram Abdominal with Runoff(Left), Angioplasty Percutaneous Transluminal, Arterial Stent Endovascular 06/13/19 15:25:07 Turbine Blade Assembler: SARAH Modifier: ELSAESR 1 <*> Procedure Aortogram Abdominal with Runoff(Left), Angioplasty Percutaneous Transluminal 2 <*> Procedure Aortogram Abdominal with Runoff(Left), Angioplasty Percutaneous Transluminal 3 <*> Procedure Aortogram Abdominal with Runoff(Left), Angioplasty Percutaneous Transluminal 4 <*> Procedure Aortogram Abdominal with Runoff(Left), Angioplasty Percutaneous Transluminal 5 <*> Procedure Aortogram Abdominal with Runoff(Left), Angioplasty Percutaneous Transluminal 6 <*> Procedure Aortogram Abdominal with Runoff(Left), Angioplasty Percutaneous Transluminal 7 <*> Procedure Aortogram Abdominal with Runoff(Left), Angioplasty Percutaneous Transluminal 06/13/19 15:13:35 Turbine Blade Assembler: SARAH Modifier: SHANESR 1 <*> Procedure Aortogram Abdominal with Runoff(Left) 2 <*> Procedure Aortogram Abdominal with Runoff(Left) 3 <*> Procedure Aortogram Abdominal with Runoff(Left) 4 <*> Procedure Aortogram Abdominal with Runoff(Left) 5 <*> Procedure Aortogram Abdominal with Runoff(Left) 6 <*> Procedure Aortogram Abdominal with Runoff(Left) 7 <*> Procedure Aortogram Abdominal with Runoff(Left) 06/13/19 15:02:24 Turbine Blade Assembler: KEVIN Modifier: SARAH 1 <+> Time In 1 <*> Procedure Aortogram Abdominal with Runoff(Left) 2 <+> Time In 2 <*> Procedure Aortogram Abdominal with Runoff(Left) 3 <+> Time In 3 <*> Procedure Aortogram Abdominal with Runoff(Left) 4 <+> Time In 4 <*> Procedure Aortogram Abdominal with Runoff(Left) 5 <+> Time In 5 <*> Procedure Aortogram Abdominal with Runoff(Left) <+> 6 Case Attendee <+> 6 Role Performed <+> 6 Time In <+> 6 Procedure <+> 7 Case Attendee <+> 7 Role Performed <+> 7 Time In <+> 7 Procedure 06/13/19 14:18:47 Turbine Blade Assembler: DENILSONNAPIER Modifier: EANAPIER <+> 5 Case Attendee <+> 5 Role Performed <+> 5 Procedure 06/13/19 14:16:49 Turbine Blade Assembler: EANAPIER Modifier: EANAPIER <+> 2 Case Attendee <+> 2 Role Performed <+> 2 Procedure <+> 3 Case Attendee <+> 3 Role Performed <+> 3 Procedure <+> 4 Case Attendee <+> 4 Role Performed <+> 4 Procedure <+> 4 Other Attendee 06/13/19 14:15:45 Turbine Blade Assembler: LIAPIKAREN Modifier: EANAPIER <+> 1 Procedure [facility] IntraOp Case Times Entry 1 Patient In Room Time 06/13/19 14:30:00 Out Room Time 06/13/19 15:30:00 Anesthesia Start Time 06/13/19 14:30:00 Stop Time 06/13/19 15:30:00 Anesthesia Ready 06/13/19 14:30:00 Surgery / Procedure Times Start Time 06/13/19 14:48:00 Stop Time 06/13/19 15:14:00 Last Modified By: GER VILLARREAL RN 06/13/19 15:01:01 [facility] IntraOp Case Times Audit 06/13/19 15:31:02 Turbine Blade Assembler: SARAH Modifier: SARAH <+> 1 Out Room Time <+> 1 Stop Time <+> 1 Stop Time [facility] IntraOp Communication Entry 1 Entry 2 Communication To Family/Significant other Pathology Comment START CLOSING- Communication By GER VILLARREAL RN SHANES, ROBERT, RN Date and Time 06/13/19 14:30:00 Last Modified By: GER VILLARREAL RN SHANES, ROBERT, RN 06/13/19 15:03:33 06/13/19 15:03:33 [facility] IntraOp Departure from OR Entry 1 Integumentary Assessment Transfer/Handoff Transfer to Other Handoff Method Bedside/Face to face, Phone call, Online nursing summary Handoff Reported to DANDY AVILA RN Post-op Transport Stretcher/Gurney Via Patient Transport GER VILLARREAL RN Accompanied by Transfer/Handoff PT TRANSPORTED TO [facility] Comments BY DR. FLORENCE. PT STABLE Last Modified By: GER VILLARREAL RN 06/13/19 15:31:20 [facility] IntraOp Departure from OR Audit 06/13/19 15:32:22 Turbine Blade Assembler: SARAH Modifier: SHANESR 1 <*> Transfer/Handoff Comments PT TRANSPORTED TO [facility] BY SNA, PT STABLE 1 <+> Patient Transport Accompanied by 1 <+> Handoff Method 06/13/19 15:31:20 Turbine Blade Assembler: SARAH Modifier: ELSAESR 1 <-> Integumentary Assessment WDL WDL 1 <*> Transfer/Handoff Comments PT TRANSPORTED TO [facility] BY RN , PT STABLE 1 <-> Patient Transport Accompanied by CARLA ROMERO MD 1 <+> Handoff Reported to 1 <-> Handoff Method Bedside/Face to face, Phone call, Online nursing summary [facility] IntraOp Dressing and Packing Entry 1 Type Dressing Location OPSITE Wound Dressing Item 4x4's, Occlusive dressing Applied By Erlinda Estevez, Angiography Tech Other Comments TEGADERM Last Modified By: Dimple Art RN 06/13/19 14:14:48 [facility] IntraOp Dressing and Packing Audit 06/13/19 15:04:12 Turbine Blade Assembler: KEVIN Modifier: PHILR 1 <*> Wound Dressing Item 4x4's 1 <*> Applied By JANN RAUSCH MD-SERGEI [facility] IntraOp Fire Risk Assessment Entry 1 Fire Info Surgical Site or 0- No Incision Above the Xyphoid Open O2 Source 1- Yes (Mask or Cannula) Available Ignition 0- No (ESU, Laser, Light Source) Fire Risk 1 Assessment Score Fire Score Fire Risk Yes Assessment Complete Fire Risk GER VILLARREAL RN Assessment Verified By Fire Risk 06/13/19 14:30:00 Assessment Verified Date/Time Fire Risk Standard Fire Yes Safety Precautions Followed Last Modified By: Dimple Art RN 06/13/19 14:14:53 [facility] IntraOp Fire Risk Assessment Audit 06/13/19 15:04:34 Turbine Blade Assembler: SARAH Modifier: PHILR <+> 1 Fire Risk Assessment Verified By 06/13/19 15:04:26 Turbine Blade Assembler: KEVIN Modifier: PHILR 1 <*> Fire Risk Assessment Verified 06/13/19 14:15:00 Date/Time [facility] IntraOp General Case Lithographic Retoucher Apprentice 1 Case Information OR OR 20 [facility] Case Level 1 Room Verified Yes Wound Class I - Clean Specialty SN Endovascular Anesthesia Type MAC ASA Class 3 Diagnosis Preop Diagnosis LT. LEG CRITICAL ISCHEMIA, AND PVD Postop Same As Preop No Postop Diagnosis SEE MD POST OP NOTE. Last Modified By: GER VILLARREAL RN 06/13/19 15:05:18 [facility] IntraOp General Case Data Audit 06/13/19 15:05:18 Turbine Blade Assembler: KEVIN Modifier: SARAH 1 <+> ASA Class 1 <+> Preop Diagnosis 1 <*> Postop Diagnosis SEE MD NOTE [facility] IntraOp Implant Log Entry 1 Type Implant (Synthetic) Implant Log Implant Type Other Implant STENT LS EXP VASC CVR Identification [id number] Description Implant Quantity 1 Implant [id number] Identification Lot Number Implant Cr Bard:Peripheral Vasc Identification Event Attendant Name: Implant [id number] Identification Catalog Number Implant Has an Yes Expiration Date Implant Expiration 11/01/21 Date Tissue Implant Last Modified By: GER VILLARREAL RN 06/13/19 15:17:41 [facility] IntraOp Intraoperative Assessment Entry 1 Handoff Method Bedside/Face to face, Phone call, Online nursing summary Valid History / Yes Physical in Chart Preoperative Yes Checklist Reviewed/Evaluated Allergies Reviewed Yes Patient is Latex No Sensitive Isolation Not applicable Precautions Noted Level of WDL Consciousness (WDL = Alert, Oriented to Person, Place, and Time) Skin Assessment Yes Verified Present Upon IVs Arrival to OR Last Modified By: GER VILLARREAL RN 06/13/19 15:05:31 [facility] IntraOp Intraoperative Equipment Entry 1 Equipment Intraop Monitoring Electrocardiogram Three lead placement (ECG) Electrode Placement Blood Pressure Non-Invasive BP Device Source Blood Pressure Arm, right upper Location Pulse Oximeter Hand, left Probe Site Antiembolic Devices Scopes Photo/Video Documentation Photo No Video No Last Modified By: GER VILLARREAL RN 06/13/19 15:06:00 [facility] IntraOp Medication Admin Entry 1 Entry 2 Entry 3 Medication/Irrigant TRISTA VISIPAQUE 320MG 150 TRISTA NACL 0.9PCT HPRN lidocaine 1% 50ml vial 200ML --801252 1000U .5L --907021 - [id number] Combo Med List Time Administered Route of CONTRAST IRRIGATION/FLUSH LOCAL Administration Dose Dose 50 2000 10 Unit of Measure mg units ml Volume Administered By JANN RAUSCH MD-SUR ABEDI, NICK NIMA, MD-SUR ABEDI, NICK NIMA, MD-SUR Procedure Irrigation Irrigant Volume In Irrigant Volume Out Last Modified By: GER VILLARREAL RN SHANES, ROBERT, RN SHANES, ROBERT, RN 06/13/19 15:06:22 06/13/19 15:07:01 06/13/19 15:07:01 [facility] IntraOp Medication Admin Audit 06/13/19 15:07:01 Turbine Blade Assembler: SARAH Modifier: SARAH <+> 2 Medication/Irrigant <+> 2 Route of Administration <+> 2 Administered By <+> 2 Dose <+> 2 Unit of Measure <+> 3 Medication/Irrigant <+> 3 Route of Administration <+> 3 Administered By <+> 3 Dose <+> 3 Unit of Measure [facility] IntraOp Patient Positioning Entry 1 Procedure Aortogram Abdominal with Runoff(Left), Angioplasty Percutaneous Transluminal, Arterial Stent Endovascular Body Position Supine Left Arm Position Tucked and padded at side Right Arm Position Tucked and padded at side Left Leg Position Uncrossed, parallel Right Leg Position Uncrossed, parallel Feet Uncrossed Yes Pressure Points Yes Checked Positioning Devices Head Rest, Safety Strap, Thighs, Sled Arm Rest, Pad, Arm, Pad, Heel Device Position UNP'S Positioned By JANN RAUSCH, MELVI, ANGELITO MCCAULEY, Robert, Dimple Art RN Position Verified Positioning Yes Verified by Anesthesia Positioning Yes Verified by Surgeon Last Modified By: GER VILLARREAL RN 06/13/19 15:07:36 [facility] IntraOp Patient Positioning Audit 06/13/19 15:25:08 Turbine Blade Assembler: SARAH Modifier: PHILR 1 <*> Procedure Aortogram Abdominal with Runoff(Left), Angioplasty Percutaneous Transluminal 06/13/19 15:13:37 Turbine Blade Assembler: SARAH Modifier: SHANESR 1 <*> Procedure Aortogram Abdominal with Runoff(Left) 06/13/19 15:07:36 Turbine Blade Assembler: KEVIN Modifier: PHILR 1 <*> Procedure Aortogram Abdominal with Runoff(Left) 1 <*> Positioned By JANN RAUSCH MD-SERGEI [facility] IntraOp Sign In Entry 1 Patient, Site, Yes Procedure Identified Surgical Consent Yes Confirmed Relevant Surgical Yes Documents Available Surgical Site N/A Marked by person performing procedure Anesthesia Machine Yes Check Completed Medication Checks Yes Completed Allergies Yes Airway Difficult No Airway/Aspiration Risk Difficult Yes Airway/Aspiration Intervention Equipment Available Blood Loss Risk No Blood Loss Yes Intervention Equipment Prepared and Ready Blood Identifiers Not applicable Verified Per Policy Hypothermia Risk Yes Warming Measures Yes Taken Last Modified By: GER VILLARREAL RN 06/13/19 15:07:56 [facility] IntraOp Sign In Audit 06/13/19 15:07:56 Turbine Blade Assembler: KEVIN Modifier: PHILMark 1 <*> Blood Identifiers Verified Per Not applicable Policy [facility] IntraOp Sign Out Entry 1 RN Confirmation Surgical Yes Procedure(s) Identified Instrument, Sponge N/A and Sharps Counts Correct/Documented Equipment Problems N/A Documented Specimen Labeled N/A Correctly Urinary Catheter N/A Documented in IView Ayoub Patient Yes Recovery Concerns Reviewed with Anesthesia Provider, Surgeon and RN Ayoub Patient Yes Management Concerns Reviewed with Anesthesia Provider, Surgeon and RN Safety Checklist Yes Elements Complete? RN Sign Out GER VILLARREAL RN Signature RN Sign Out 06/13/19 15:30:00 Signature Date/Time Plan of Care Outcome - [...] related to extraneous objects Last Modified By: GER VILLARREAL RN 06/13/19 15:08:21 [facility] IntraOp Sign Out Audit 06/13/19 15:32:50 Turbine Blade Assembler: [email or web address] Modifier: SHANESR 1 <*> RN Sign Out Signature Date/Time 06/13/19 15:32:00 06/13/19 15:32:32 Turbine Blade Assembler: SARAH Modifier: SHANESR <+> 1 RN Sign Out Signature Date/Time [facility] IntraOp Skin Prep Entry 1 Procedure Aortogram Abdominal with Runoff(Left), Angioplasty Percutaneous Transluminal, Arterial Stent Endovascular Prescribed N/A Pre-Surgical Prep Completed Prep Area BILATERAL GROINS Intraop Prep Integumentary WDL Assessment WDL Prep Agents Chloraprep Prep by Dimple Art RN Hair Removal Methods Clipper/Scissors Hair Removal Site OP SITE Hair Removal By GER VILLARREAL RN Last Modified By: GER VILLARREAL RN 06/13/19 15:09:32 [facility] IntraOp Skin Prep Audit 06/13/19 15:25:09 Turbine Blade Assembler: SARAH Modifier: SHANESR 1 <*> Procedure Aortogram Abdominal with Runoff(Left), Angioplasty Percutaneous Transluminal 06/13/19 15:13:37 Turbine Blade Assembler: ELSAESR Modifier: SHANESR 1 <*> Procedure Aortogram Abdominal with Runoff(Left) 06/13/19 15:09:32 Turbine Blade Assembler: KEVIN Modifier: ELSAESR 1 <*> Prep Area BILATERAL GROINS 1 <*> Prep Agents Chloraprep 1 <*> Methods No hair removal performed 1 <+> Hair Removal Site 1 <*> Procedure Aortogram Abdominal with Runoff(Left) 1 <*> Prescribed Pre-Surgical Prep N/A Completed 1 <+> Prep by 1 <+> Hair Removal By 1 <*> Integumentary Assessment WDL WDL [facility] IntraOp Surgical Procedures Entry 1 Entry 2 Entry 3 Procedure Aortogram Abdominal Angioplasty Arterial Stent with Runoff Percutaneous Endovascular Transluminal Modifiers Left Additional ULTRASOUND GUIDED Procedure AORTOGRAM WITH RUNOFF, Description LT LOWER EXTREMITY AORTOGRAM, WITH LT. COMMON ILIAC ARTERY ROLLER STRUCTURAL MILL, AND STENT.. Primary Procedure Yes No No Primary Surgeon JANN RAUSCH MD-SUR ABEDI, JANN LAURO, MD-JANN GONCALEVS MD-SERGEI Start 06/13/19 14:48:00 06/13/19 14:48:00 06/13/19 14:48:00 Stop 06/13/19 15:14:00 06/13/19 15:14:00 06/13/19 15:14:00 Physician States Cecum Reached Anesthesia Type MAC MAC MAC Specialty SN Endovascular SN Endovascular SN Endovascular Wound Class I - Clean I - Clean I - Clean Last Modified By: GER VILLARREAL, RN GER VILLARREAL, RN GER VILLARREAL, MIKE 06/13/19 15:27:42 06/13/19 15:13:30 06/13/19 15:25:03 General Comments: 2 GRAMS ANCEF GIVEN AT 1436. [facility] IntraOp Surgical Procedures Audit 06/13/19 15:32:56 Turbine Blade Assembler: SARAH Modifier: PHILR 1 <*> Procedure Aortogram Abdominal with Runoff 1 <*> Procedure Aortogram Abdominal with Runoff 1 <*> Stop 2 <*> Stop 3 <*> Stop 06/13/19 15:27:42 Turbine Blade Assembler: SARAH Modifier: ELSAESR 1 <*> Procedure Aortogram Abdominal with Runoff 1 <*> Additional Procedure Description ULTRASOUND GUIDED AORTOGRAM WITH RUNOFF, LT LOWER EXTREMITY AORTOGRAM, WITH LT. COMMON ILIAC ARTERY ROLLER STRUCTURAL MILL. 1 <*> Additional Procedure Description ULTRASOUND GUIDED AORTOGRAM WITH RUNOFF, LT LOWER EXTREMITY AORTOGRAM, WITH LT. COMMON ILIAC ARTERY ROLLER STRUCTURAL MILL. 06/13/19 15:25:03 Turbine Blade Assembler: SARAH Modifier: ELSAESR 3 <*> Procedure 3 <*> Procedure 3 <*> Primary Procedure 3 <*> Primary Procedure 3 <*> Primary Surgeon JANN RAUSCH MD-SERGEI 3 <*> Primary Surgeon JANN RAUSCH MD-SUR 3 <*> Specialty 3 <*> Specialty 3 <*> Start 3 <*> Start 3 <*> Wound Class 3 <*> Wound Class 3 <*> Anesthesia Type 3 <*> Anesthesia Type 06/13/19 15:13:30 Turbine Blade Assembler: KEVIN Modifier: ELSAESR 1 <*> Procedure Aortogram Abdominal with Runoff 1 <*> Procedure Aortogram Abdominal with Runoff 1 <*> Procedure Aortogram Abdominal with Runoff 1 <*> Start 1 <*> Start 1 <*> Start 1 <*> Additional Procedure Description (AORTOGRAM WITH RUNOFF, LT LOWER EXTREMITY INTERVENTION) 1 <*> Additional Procedure Description (AORTOGRAM WITH RUNOFF, LT LOWER EXTREMITY INTERVENTION) 1 <*> Additional Procedure Description (AORTOGRAM WITH RUNOFF, LT LOWER EXTREMITY INTERVENTION) 2 <*> Procedure 2 <*> Procedure 2 <*> Procedure 2 <*> Primary Procedure 2 <*> Primary Procedure 2 <*> Primary Procedure 2 <*> Primary Surgeon JANN RAUSCH MD-SUR 2 <*> Primary Surgeon JANN RAUSCH MD-SUR 2 <*> Primary Surgeon JANN RAUSCH MD-SUR 2 <*> Specialty 2 <*> Specialty 2 <*> Specialty 2 <*> Start 2 <*> Start 2 <*> Start 2 <*> Wound Class 2 <*> Wound Class 2 <*> Wound Class 2 <*> Anesthesia Type 2 <*> Anesthesia Type 2 <*> Anesthesia Type 06/13/19 14:18:35 Turbine Blade Assembler: KEVIN Modifier: KEVIN 1 <*> Procedure Aortogram Abdominal with Runoff 1 <*> Specialty 1 <*> Specialty 1 <*> Specialty 1 <*> Specialty [facility] IntraOP Time Out Entry 1 Procedure to be Aortogram Abdominal Performed with Runoff(Left), Angioplasty Percutaneous Transluminal, Arterial Stent Endovascular Time Out Time Out Pause Time 06/13/19 14:28:00 All activity Yes suspended (unless life threatening [...] Within the Last 60 Minutes Beta Zach N/A Administered Venous Yes Thromboembolism Prophylaxis Required Anticipated Critical Events Surgeon None expected Anesthesia Provider Patient specific concerns Nursing Assures Sterility of instruments, Implant Availability Essential Imaging N/A Labeled and Displayed Last Modified By: GER VILLARREAL RN 06/13/19 15:25:09 [facility] IntraOP Time Out Audit 06/13/19 15:25:09 Turbine Blade Assembler: SARAH Modifier: SARAH 1 <*> Procedure to be Performed Aortogram Abdominal with Runoff(Left), Angioplasty Percutaneous Transluminal 06/13/19 15:13:38 Turbine Blade Assembler: SARAH Modifier: SARAH 1 <*> Procedure to be Performed Aortogram Abdominal with Runoff(Left) [facility] IntraOp X-Ray and Images Entry 1 X-Ray/Imaging Type Fluoroscopy Fluoroscopy Type Fixed Site OPERATIVE SITE [employer] Counselor Name Erlinda Esteevz, Angiography Tech Protective Devices Yes Used Placement of YES protective device Exposure Time 3.1 MINUTES Last Modified By: GER VILLARREAL RN 06/13/19 15:11:35 Case Comments <None> Finalized By: VALENTIN GARCIA Document Signatures Signed By: GER VILLARREAL RN 06/13/19 15:33 VALENTIN GARCIA 06/14/19 13:11 Unfinalized History Date/Time Username Reason for Unfinalizing Freetext Reason for Unfinalizing 06/14/19 13:07 [email or web address] Correct Billing Electronically signed by [facility] Conversion Jelly Filter Tender Cerner at 02/16/2023 3:46 PM CDT documented in this encounter Plan of Treatment Upcoming Encounters Date Type Department Care Team (Late st Contact Info) Description 03/10/2025 1:15 PM EDT Office Visit [facility] Cardiology - [place] [address] [place] [address] Tabby Mcallister PA-Yuliana [address] [address] documented as of this encounter Visit Diagnoses Not on filedocumented in this encounter Care Teams System Software Programmer Relationship Specialty Start Date End Date Stacy Moise PA PCP - General 03/02/23 documented as of this encounter
--- OUTSIDE RECORDS SUMMARY | 2024-09-30 17:12 | XMS_ITS | Encounter Summary ---
Author Organization [employer] Address [address] [facility] [place] [address] Care Team Providers Care Law Researcher Name Role Phone Stacy Moise Primary Care Provider [phone] Encounter Details Date Type Department Care Team (Late st Contact Info) Description 12/29/2018 Historic Encounter [facility] [address] [place] [address] ProviderJuan Historical Social History Tobacco [...] Office Visit [facility] Cardiology - [place] [address] [place] [address] Tabby Mcallister PA-C [address] [place] [address] [address] [place] [address] documented as of this encounter Procedures Procedure Name Priority Date/Time Associated Diagnosis Comments GLUCOSE-POC Routine 12/29/2018 9:09 AM EST documented in this encounter Results * (ABNORMAL) Glucose, Point of Care (12/29/2018 9:09 AM EST) Glucose POC2 140(H) 70 - 110 mg/dL 12/29/2018 2:09 PM EST [facility] Senior Bi Architect [id number] 12/29/2018 2:09 PM EST [facility] Device SN [id number] 12/29/2018 2:09 PM EST [facility] Blood 12/29/2018 9:09 AM EST 12/29/2018 2:15 PM EST [facility] Historical Provider POINT OF CARE TEST MICHAEL PETERS Final Result Performing Organization Address City/State/[facility] Co de Phone Number [facility] [address] [phone] documented in this encounter Visit Diagnoses Not on filedocumented in this encounter Care Teams Law Researcher Relationship Specialty Start Date End Date Stacy Moise PA PCP - General 03/02/23 documented as of this encounter
--- OUTSIDE RECORDS SUMMARY | 2024-09-30 17:12 | XMS_ITS | Encounter Summary ---
Author Organization [facility] Address [address] [facility] [place] [address] Care Team Providers Care Staff Radiation Therapist Name Role Phone Stacy Moise Primary Care Provider [phone] Encounter Details Date Type Department Care Team (Late st Contact Info) Description 06/13/2019 Transcribed Document [facility] Family Medicine [address] [place] [address] ProviderMireya MD [address] [place] [phone] Social History Tobacco Use Types Packs/Day Years Used Date Smoking Tobacco: Never Assessed Sex and Gender Information Value Date Recorded Sex Assigned at Not on file Legal Sex Male 5:25 PM CDT Gender Identity Not on file Sexual Orientation Not on file documented as of this encounter Miscellaneous Notes * Cerner Conversion Note - Mireya Osuna MD - 06/13/2019 2:48 PM CDT [facility] Main OR Preop Summary Primary Physician: JANN RAUSCH MD-SUR Finalized Date/Time: 06/13/19 20:43:20 Pt. Name: SCOTTIE CURRAN ERIKA /Sex: 1945 Male Med Rec #: [id number] Physician: JANN RAUSCH MD-SUR Financial #: [id number] Pt. Type: O Room/Bed: / Admit/Disch: 06/13/19 11:41:00 - 06/13/19 18:06:00 Institution: [facility] PreOp Case Times Entry 1 In Preop 06/13/19 11:55:00 Ready for Holding n/a Room Patient Ready for 06/13/19 13:22:00 Surgery Patient Out of Preop 06/13/19 14:26:00 Patient Out of n/a Holding Room Last Modified By: YOBANI PAREKH RN 06/13/19 20:43:13 [facility] PreOp Case Times Audit 06/13/19 20:43:13 Hide Grader: [email or web address] Modifier: MIRNA <+> 1 Patient Out of Preop Finalized By: YOBANI PAREKH RN Document Signatures Signed By: YOBANI PAREKH RN 06/13/19 20:43 Electronically signed by [facility] Conversion Substation Designer Cerner at 02/16/2023 4:12 PM CDT documented in this encounter Plan of Treatment Upcoming Encounters Date Type Department Care Team (Late st Contact Info) Description 03/10/2025 1:15 PM EDT Office Visit [facility] Cardiology - [place] [address] [place] [address] Tabby Mcallister PA-C [address] [facility] [address] [place] [address] documented as of this encounter Visit Diagnoses Not on filedocumented in this encounter Care Teams Staff Radiation Therapist Relationship Specialty Start Date End Date Stacy Moise PA PCP - General 03/02/23 documented as of this encounter
--- OUTSIDE RECORDS SUMMARY | 2024-09-30 17:12 | XMS_ITS | Encounter Summary ---
Author Organization [employer] Address [address] [facility] [place] [address] Care Team Providers Care Aircraft Dispatcher Name Role Phone Stacy Moise Primary Care Provider [phone] Encounter Details Date Type Department Care Team (Late st Contact Info) Description 03/10/2020 Transcribed Document [facility] [place] [facility] [place] [address] ProviderMireya MD [address] [place] [id number] Social History Tobacco Use Types Packs/Day Years Used Date Smoking Tobacco: Never Assessed Sex and Gender Information Value Date Recorded Sex Assigned at Not on file Legal Sex Male 5:25 PM CDT Gender Identity Not on file Sexual Orientation Not on file documented as of this encounter Miscellaneous Notes * Cerner Conversion Note - Mireya Osuna MD - 03/10/2020 6:44 PM CDT Patient: SCOTTIE CURRAN Age: 74 years Sex: Male : 1945 Associated Diagnoses: Left facial numbness Author: BIRDIE SMALLS MD Basic Information Additional information: Chief Complaint from Nursing Triage Note : Chief Complaint 03/10/2020 18:38 EDT Chief Complaint Pt presents to the ER with left numbness to the elft side of his face that started around 1600 this afternoon. Also reports slight dizziness. . History of Present Illness The patient presents with left, paresthesia, numbness left side of face. and Pt states he had some mild dizziness this morning, now resolved. Acutely around 4pm today noticed left facial numbness.. The onset was 03/10/2020 16:00:00 . The course/duration of symptoms is constant. Location: Left face. The character of symptoms is tingling and numbness, no weakness, not paralyzed, not altered sensation, not unable to speak, not difficult to speak and not off-balance. Associated symptoms: none. Review of Systems Constitutional symptoms: No fever, [...] back pain, no Joint pain. Neurologic symptoms: Numbness, tingling, no headache, no dizziness, no weakness. Health Status Allergies: Allergic Reactions (Selected) No Known Medication Allergies. Medications: (Selected) Inpatient Medications Ordered Normal Saline Flush: 10 mL, IV Push, See Comment, PRN: IV Use Documented Medications Documented Aspir 81: 81 mg, Oral, Daily, 0 Refill(s) Bystolic 10 mg oral tablet: 1 Tab, Oral, Daily, 0 Refill(s) Crestor 10 mg oral tablet: 1 Tab, Oral, EveryOtherDay, 0 Refill(s) Flonase: 2 [place], Nasal, EveryOtherDay, PRN: Allergies, 0 Refill(s) Konsyl: [...] x2. hand surgery. S/P cholecystectomy (SNOMED CT [id number]). colon resection. Cataract surgery (SNOMED CT 205491022). Colonoscopy (SNOMED CT 001682373). renal stent///2018. right leg balloon. back fusion [...] of Tobacco Use 55 Packs/Tins Daily 1 , Reviewed as documented in chart. Problem [...] Physical Examination Vital Signs Vital Signs/Vital Measures 03/10/2020 18:38 EDT Temperature Source Oral Temperature Mode Fahrenheit Temperature, Fahrenheit 98.2 Deg F Clinical Temperature, C 36.8 Deg C Respiratory Rate 18 Breaths/Min Oxygen Saturation 98 % Oxygen Therapy Mode Room air . Measurements 03/10/2020 18:38 EDT Height Source Stated Height Entry Format Cecilia Height/Length, GREEK (ft) 5 ft Height/Length GREEK 9 Inch CLINICALHEIGHT 175.26 cm [place] Body Weight 69.73 kg Weight Source, ED Critical estimated dosing weight Weight Entry Format [place] Weight Taiwanese lb 170 lb CLINICALWEIGHT 77.27 kg Body Surface Area (BSA) 1.93 m2 Body Mass Index 25.2 kg/m2 HI . Oxygen Saturation 03/10/2020 18:38 EDT Oxygen Saturation 98 % . General: Alert, [...] to person, place, time, and situation, normal motor observed, normal speech observed, normal coordination observed, normal and symmetrical reflexes, No normal sensory observed, , Sensory: Facial left, diminished, to touch, Gait: Normal. Lymphatics: No lymphadenopathy. Psychiatric: Cooperative. Medical Decision Making Documents reviewed: Emergency department nurses' notes. Radiology results: Radiology Results (Last 48 hours) [id number] -- 03/10/2020 18:11 CT Head WO Code Stroke (03/10/2020 18:40) [...] notified of these findings prior to dictation. . Procedure NIH Stroke Scale Time: 03/10/2020 18:40:00 . Level of consciousness: Alert = 0. Current month and age: Answers both correctly = 0. Open and close eyes/marina manager release hand: Obeys both correctly = 0. Best gaze: Normal = 0. Visual field testing: No visual field loss = 0. Facial paresis: Normal symmetric movement = 0. Motor function left arm: Normal = 0. Motor function right arm: Normal = 0. Motor function left leg: Normal = 0. Motor function right leg: Normal = 0. Limb ataxia: No ataxia = 0. Sensory: Mild to moderate decrease in sensation = 1. Best language: No aphasia = 0. Dysarthria: Normal articulation = 0. Extinction and inattention: Normal = 0. Total score: 1 . Impression and Plan Diagnosis Left facial numbness - Discharge, Medical Plan Condition: Guarded. Disposition: Admit Admit/Transfer/Discharge: Place in Observation (Order): Start: 03/10/2020 19:01 EDT, Observation Reason: left facial numbness, Unit type: Telemetry unit, Admitting: MATT HAJI MD-INT. Counseled: Patient, Regarding diagnosis, Regarding diagnostic results, Regarding treatment plan, Patient indicated understanding of instructions. Notes: Pt presented with new left facial numbness, NIH stroke scale 1. Discuss[address] Roberts, neurology, she does not recommend TPA given the low score and mild symptoms. Stable in the ED. Given asa and hydralizine. Discussed with Dr. Haji, hospitalist, he accepts admit for further evaluation. . Electronically signed by [facility] Conversion Manager Operating Cerner at 02/16/2023 3:53 PM CDT documented in this encounter Plan of Treatment Upcoming Encounters Date Type Department Care Team (Late st Contact Info) Description 03/10/2025 1:15 PM EDT Office Visit [facility] Cardiology - [place] [address] [place] [address] Tabby Mcallister PA-C 227 [facility] [address] [place] [address] documented as of this encounter Visit Diagnoses Not on filedocumented in this encounter Care Teams Aircraft Dispatcher Relationship Specialty Start Date End Date Stacy Moise PA PCP - General 03/02/23 documented as of this encounter
--- OUTSIDE RECORDS SUMMARY | 2024-09-30 17:12 | XMS_ITS | Encounter Summary ---
Author Organization [employer] Address [address] [place] [address] Care Team Providers Care Liability Claims Adjuster Name Role Phone Stacy Moise Primary Care Provider [phone] Encounter Details Date Type Department Care Team (Late st Contact Info) Description 06/13/2019 Transcribed Document [facility] Radiology 1 [place] [address] Royal Carrasco MD 1 [place] [address] Social History Tobacco Use Types Packs/Day Years Used Date Smoking Tobacco: Never Assessed Sex and Gender Information Value Date Recorded Sex Assigned at Not on file Legal Sex Male 5:25 PM CDT Gender Identity Not on file Sexual Orientation Not on file documented as of this encounter Miscellaneous Notes * Cerner Conversion Note - Royal Carrasco MD - 06/13/2019 1:27 PM EDT Patient: SCOTTIE CURRAN Age: 73 years Sex: Male : 1945 Associated Diagnoses: None Author: PETRONA STONE APRN Chief Complaint PAD Review of Systems ROS reviewed as documented in chart no change since last seen by surgeon Health Status Allergies: Allergic Reactions (Selected) No Known Medication Allergies, Allergies (1) Active Reaction No Known Medication Allergies None Documented Current medications: (Selected) Documented Medications Documented Aspir 81: 81 mg, Oral, Daily, 0 Refill(s) Bystolic 10 mg oral tablet: 1 Tab, Oral, Daily, 0 Refill(s) Crestor 10 mg oral tablet: 1 Tab, Oral, EveryOtherDay, 0 Refill(s) Flonase: 2 [place], Nasal, EveryOtherDay, 0 Refill(s) Konsyl: Oral, EveryOtherDay, [...] = 1 Tab, Oral, EveryOtherDay Flonase 2 [place], Nasal, EveryOtherDay furosemide 20 mg oral tablet [...] ZyrTEC 10 mg, PRN, Oral, Daily , No qualifying data available Problem list: All Problems Stented coronary artery / SNOMED CT 4755261858 / Confirmed Renal calculus///HX / SNOMED CT 554410853 / Confirmed Prostatitis// / SNOMED CT 79449255 / Confirmed Peripheral vascular disease / SNOMED CT 5660631437 / Confirmed HTN (hypertension) / SNOMED CT 7676244918 / Confirmed High cholesterol / SNOMED CT 06748056 / Confirmed Left hip pain//left leg / SNOMED CT 61808377 / Confirmed Murmur / SNOMED CT 929031928 / Confirmed Hard of hearing / SNOMED CT 478190229 / Confirmed GERD - Gastro-esophageal reflux disease / SNOMED CT 0494749753 / Confirmed Diverticulitis///HX / SNOMED CT 051006343 / Confirmed Disorder of prostate / SNOMED CT 93577394 / Confirmed CAD (coronary artery disease) / SNOMED CT 40635045 / Confirmed Cataract///extraction / SNOMED CT 047303079 / Confirmed Back pain / SNOMED CT 1062632019 / Confirmed At risk for sleep apnea / IMO 90939089 / Confirmed Arthritis / SNOMED CT 9138107 / Confirmed Aortic valve disease / SNOMED CT 65736130 / Confirmed Angina//last seversl years / SNOMED CT 714838225 / Confirmed, Active Problems (19) Angina//last seversl years Aortic valve disease Arthritis At risk for sleep apnea Back pain CAD (coronary artery disease) Cataract///extraction Disorder of prostate Diverticulitis///HX GERD - Gastro-esophageal reflux disease Hard of hearing High cholesterol HTN (hypertension) Left hip pain//left leg Murmur Peripheral vascular disease Prostatitis///12/2018 Renal calculus///HX Stented coronary artery Histories Past Medical History: Resolved Gallbladder disease (987880317): Resolved. Family History: No family history items have been selected or recorded. Procedure history: heart cath in 2017 at 72 Years. cardiac stents. left lower extremity vascular stent. hand surgery. S/P cholecystectomy ([id number]). colon resection. Cataract surgery ([id number]). Colonoscopy (946963544). renal stent///2018. right leg balloon. Physical Examination VS/Measurements No qualifying data available General: Alert and oriented, No acute distress. Eye: Pupils are equal, round and reactive to light, Extraocular movements are intact, glasses. HENT: Normocephalic, [place]. Neck: Supple, Non-tender. Respiratory: Lungs are clear to auscultation, Respirations are non-labored. Cardiovascular: Normal rate, Regular rhythm, No murmur, No gallop, No edema, ming LE pedal pulses + per doppler. Gastrointestinal: Soft, Non-tender. Genitourinary: No costovertebral angle tenderness. Lymphatics: No lymphadenopathy neck, axilla, groin. Musculoskeletal: Normal range of motion, LLE weakness. Integumentary: Warm, Dry, [place]. Neurologic: Alert, Oriented. Psychiatric: Cooperative, Appropriate mood & affect. Review / Management Results review: No qualifying data available. Impression and Plan Condition: Stable. documented in this encounter Plan of Treatment Upcoming Encounters Date Type Department Care Team (Late st Contact Info) Description 03/10/2025 1:15 PM EDT Office Visit [facility] Cardiology - [place] [address] [place] [address] Tabby Mcallister PA-C [address] [address] documented as of this encounter Visit Diagnoses Not on filedocumented in this encounter Care Teams Liability Claims Adjuster Relationship Specialty Start Date End Date Stacy Moise PA PCP - General 03/02/23 documented as of this encounter
--- OUTSIDE RECORDS SUMMARY | 2024-09-30 17:12 | XMS_ITS | Encounter Summary ---
Author Organization [employer] Address [address] [facility] [place] [address] Care Team Providers Care Art Education Professor Name Role Phone Stacy Moise Primary Care Provider [phone] Encounter Details Date Type Department Care Team (Late st Contact Info) Description 01/17/2020 Transcribed Document [facility] Family Medicine [address] [place] [address] ProviderMireya MD [address] [place] [phone] Social History Tobacco Use Types Packs/Day Years [...] - 01/17/2020 11:35 AM CDT [facility] Main OR PACU Summary Primary Physician: CARLA VAZQUEZ MD-SNU Finalized Date/Time: 01/17/20 13:32:42 Pt. Name: SCOTTIE CURRAN ERIKA /Sex: 1945 Male Med Rec #: [id number] Physician: CARLA VAZQUEZ MD-SNU Financial #: [id number] Pt. Type: O Room/Bed: Admit/Disch: 01/17/20 06:45:00 - Institution: [facility] Main OR PACU I Case Times Entry 1 In PACU I 01/17/20 12:28:00 Ready for PACU 01/17/20 13:10:00 Discharge Discharge from PACU 01/17/20 12:25:00 I Last Modified By: Dori Sparrow RN 01/17/20 13:32:38 [facility] Main OR PACU I Case Times Audit 01/17/20 13:32:38 Director Compensation: [id number] Modifier: [id number] <+> 1 Discharge from PACU I Finalized By: Dori Sparrow RN Document Signatures Signed By: Dori Sparrow RN 01/17/20 13:32 Electronically signed by [facility] Conversion American History Professor Cerner at 02/16/2023 3:57 PM CDT documented in this encounter Plan of Treatment Upcoming Encounters Date Type Department Care Team (Late st Contact Info) Description 03/10/2025 1:15 PM EDT Office Visit [facility] Cardiology - [place] [address] [place] [address] Tabby Mcallister PA-C 227 [facility] [address] [place] [address] documented as of this encounter Visit Diagnoses Not on filedocumented in this encounter Care Teams Art Education Professor Relationship Specialty Start Date End Date Stacy Moise PA PCP - General 03/02/23 documented as of this encounter
--- OUTSIDE RECORDS SUMMARY | 2024-09-30 17:12 | XMS_ITS | Encounter Summary ---
Author Organization [employer] Address [address] [facility] [place] [address] Care Team Providers Care Senior Research Manager Name Role Phone Stacy Moise Primary Care Provider [phone] Encounter Details Date Type Department Care Team (Late st Contact Info) Description 12/29/2018 Historic Encounter [facility] [address] [place] [address] ProviderJuan Historical Social History Tobacco [...] Office Visit [facility] Cardiology - [place] [address] [place] [address] Tabby Mcallister PA-C [address] [place] [address] [address] [place] [address] documented as of this encounter Procedures Procedure Name Priority Date/Time Associated Diagnosis Comments ANTIBODY SCREEN - ABSCGEL((BKR) Routine 12/29/2018 9:10 AM EST documented in this encounter Results * Antibody Screen (12/29/2018 9:10 AM EST) SC1 0 12/29/2018 2:50 PM EST SC2 0 12/29/2018 2:50 PM EST SC3 0 12/29/2018 2:50 PM EST Antibody Screen Negative ABSC 12/29/2018 2:54 PM EST Blood 12/29/2018 9:10 AM EST 12/29/2018 2:24 PM EST [facility] Historical Provider [facility] BLOOD BANK TEST ORD ERABLES Final Result [facility] [address] [phone] documented in this encounter Visit Diagnoses Not on filedocumented in this encounter Care Teams Senior Research Manager Relationship Specialty Start Date End Date Stacy Moise PA PCP - General 03/02/23 documented as of this encounter
--- OUTSIDE RECORDS SUMMARY | 2024-09-30 17:12 | XMS_ITS | Encounter Summary ---
Author Organization [facility] Address [address] [place] [address] Care Team Providers Care Plant Utilities Engineer Name Role Phone Unavailable Primary Care Provider Unavailabl e Encounter Details Date Type Department Care Team (Late st Contact Info) Description 01/17/2020 Historic Encounter [facility] Radiology [address] [place] [address] Ceasar Brandon MD [facility] [address] Social History Tobacco Use Types [...] Visit [facility] Cardiology - [place] [address] [place] [address] Tabby Mcallister PA-C [address] [facility] [address] [place] [address] documented as of this encounter Procedures Procedure Name Priority Date/Time Associated Diagnosis Comments [place] HIGH SCHOOL COACH IN OR 30 MINUTE INCREMENTS Routine 01/17/2020 12:00 PM EDT documented in this encounter Results * [place] radiology transcriptionist in or 30 minute increments (01/17/2020 12:00 PM EDT) Anatomical Region Laterality Modality Radiographic Norma ging 01/17/2020 12:0 0 PM EDT Narrative 01/17/2020 10:01 PM EDT FLUORO TIME PROCEDURE: ??Fluoroscopy in the operating room. HISTORY: Cervical fusion. FINDINGS: Fluoroscopy was provided by the radiology department for the clinical service. A single fluoroscopic spot film was obtained for cervical fusion. Fluoroscopy exposure time: ??Less than one ??minutes. IMPRESSION: See above. Please see the operative report. Images reviewed, interpreted, and dictated by Dr. Abhijit Brandon. Transcribed by Favio Vora PA-C. I have personally viewed, interpreted and dictated the examination. I have read and agree with the above final transcribed report. Procedure Note Ceasar Brandon MD - 02/17/2023 FLUORO TIME PROCEDURE: Fluoroscopy in the operating room. HISTORY: Cervical fusion. FINDINGS: Fluoroscopy was provided by the radiology department for the clinical service. A single fluoroscopic spot film was obtained for cervical fusion. Fluoroscopy exposure time: Less than one minutes. IMPRESSION: See above. Please see the operative report. Images reviewed, interpreted, and dictated by Dr. Abhijit Brandon. Transcribed by Favio Vora PA-C. I have personally viewed, interpreted and dictated the examination. I have read and agree with the above final transcribed report. us Ceasar Brandon MD IMG FLUOROSCOPY ORDERABLE S Final Result documented in this encounter Visit Diagnoses Not on filedocumented in this encounter
--- OUTSIDE RECORDS SUMMARY | 2024-09-30 17:13 | XMS_ITS | Encounter Summary ---
Author Organization [employer] Address [address] [facility] [place] [address] Care Team Providers Care Steamship Agent Name Role Phone Stacy Moise Primary Care Provider [phone] Encounter Details Date Type Department Care Team (Late st Contact Info) Description 12/29/2018 Transcribed Document [facility] [place] [address] [place] [address] ProviderMireya MD [address] [place] [address] [id number] Social History Tobacco Use Types Packs/Day Years Used Date Smoking Tobacco: Never Assessed Sex and Gender Information Value Date Recorded Sex Assigned at Not on file Legal Sex Male 5:25 PM CDT Gender Identity Not on file Sexual Orientation Not on file documented as of this encounter Miscellaneous Notes * Cerner Conversion Note - Historical ProviderMD - 12/29/2018 12:20 PM RUN BOAT OPERATOR Evaluation, Physical Therapy Entered On: 12/29/2018 16:13 EST Performed On: 12/29/2018 16:05 EST by PORFIRIO AQUINO, NAV General Information, PT Visit Type, PT : Initial evaluation Patient Orders : Order Date Order Ordering MD 12/29/2018 12:21 Physical Therapy Eval and Treat Ordered By: CARLA VAZQUEZ MD-[facility] Active Diagnoses : No Qualifying Diagnoses Therapy Diagnosis, PT : Acute pain and difficulty walking Onset of Problem, PT : 12/29/2018 EST Admission Date : 12/29/2018 06:57 Co-treated by, PT : resource technician/aide Personal Devices : Personal Devices No Devices Recorded Assistive Devices : Assistive Devices No Devices Recorded Precautions in Place : Fall prevention measures General Information Comment, PT : Admit Dx: 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 (12/29) Hx: QAGAN TAYAGUNGIN, GERD, CAD PORFIRIO AQUINO, PT - 12/29/2018 16:05 EST General Status Patient Received Status : Supine in bed Treatment Start Time : 12/29/2018 15:30 EST Patient Left Status : Supine in bed, All needs met and within reach Treatment End Time : 12/29/2018 15:43 EST Treatment Time : 13 Minute(s) PORFIRIO AQUINO, PT - 12/29/2018 16:05 EST History and Environment Patient Lives With : Spouse Persons Providing Information : Patient Home Setup : One story Stairs : No PORFIRIO AQUINO, PT - 12/29/2018 16:05 EST Prior Level of Function PT GRID Prior LOF Ambulation, Household : Independent Prior LOF Ambulation, Community : Independent Prior LOF Bed Mobility : Independent Prior LOF Toileting : Independent Prior LOF Transfer : Independent PORFIRIO AQUINO, PT - 12/29/2018 16:05 EST Lower Extremity RLE Active ROM : WFL Right LE Strength : WFL LLE Active ROM : WFL Left LE Strength : WFL PORFIRIO AQUINO, PT - 12/29/2018 16:05 EST Functional Mobility Mobility Grid Supine to Sit : Rehab Minimal assistance Sit to Stand : Rehab Minimal assistance Stand to Sit : Rehab Minimal assistance Sit to Supine : Rehab Minimal assistance PORFIRIO AQUINO, PT - 12/29/2018 16:05 EST Sit to Stand Device : Belt, gait, Walker, front wheel Stand to Sit Device : Belt, gait, Walker, front wheel Functional MobilityComment : cues for logroll sequence and body mechanics PORFIRIO AQUINO PT - 12/29/2018 16:05 EST AM PAC Basic Mobility Turning Over in Bed : Unable Sit Down On/Stand Up From Chair w/ Arms : Unable Move Back Lying to Sitting Side of Bed : Unable Moving To/From a Bed to Chair : A little Need to Walk in Hospital Room : A little Climbing 3-5 Steps with a Railing : Total AM-PAC Basic Mobility Raw Score : 10 AM-PAC Basic Mobility Standardized Score : 32.29 AM-PAC Basic Mobility CMS 0-100% Score : 76.75 % PORFIRIO AQUINO, PT - 12/29/2018 16:05 EST Image 1 - Images currently included in the form version of this document have not been included in the text rendition version of the form. Functional Limitation Reporting, PT Functional Limitation Visit Type, PT : Initial evaluation Severity Determination Method, PT : Clinical Judgment, AM PAC Basic Mobility Mobility G8978 - Current Mod, PT : 60 - 79% impaired, limited or restricted (CL) Mobility G8979 - Proj Goal Mod, PT : 40 - 59% impaired, limited or restricted (CK) PORFIRIO AQUINO, PT - 12/29/2018 16:05 EST Gait Training/Assessment, PT Gait Assistance Level : Assist, minimal Walking Distance : pt stood only due to lines but with good tolerance with RWx Teressa and marching in place Ambulatory Devices : Gait belt, Walker, front wheel PORFIRIO AQUINO, PT - 12/29/2018 16:05 EST Cognition Assessment, PT Orientation : Oriented x 4 Safety/Judgment Comment : QAGAN TAYAGUNGIN Attention Assessment : Present PORFIRIO AQUINO PT - 12/29/2018 16:05 EST Edu Topics Physical Therapy Education Grid Gait Training : Verbalizes understanding, Returns demonstration, Needs reinforcement Transfer Training : Verbalizes understanding, Returns demonstration, Needs reinforcement PORFIRIO AQUINO, PT - 12/29/2018 16:05 EST Indication Assesessment, PT Physical Therapy Indicated : Yes PT Problem List : Impaired, endurance tolerance, Impaired, gait, Impaired, strength, Impaired, transfers PORFIRIO AQUINO, PT - 12/29/2018 16:05 EST Plan of Care, PT PT Tx Plan/Goals Established w Patient : Yes PT Frequency Rehab : Daily, twice (bid) PT Duration Rehab : Other: 14 days OR d/c OR no skilled PTx services needed PT Treatments Planned : Gait training, Therapeutic exercises, Transfer training PORFIRIO AQUINO, PT - 12/29/2018 16:05 EST Custodial Goals Mobility/Bed Mobility LTG PT Grid Goal #1 Goal #2 Activity : Supine to sit Sit to stand Assist : Independent, modified Independent, modified Date to Meet : 01/12/2019 EDT 01/12/2019 EDT Goal Status : Intial Goal Intial Goal Comment : via logroll PORFIRIO AQUINO, PT - 12/29/2018 16:05 EST PORFIRIO AQUINO, PT - 12/29/2018 16:05 EST Ambulation LTG Grid Goal #1 Device : Walker, front wheel Distance : 300ft Assist : Independent, modified Date to Meet : 01/12/2019 EDT Goal Status : Intial Goal PORFIRIO AQUINO, PT - 12/29/2018 16:05 EST Treatment Note Subjective Comment : pt agreed to PTx eval Patient's Response to Treatment : Stable Additional Objective Information : Reviewed BLT and spine precautions Assessment : pt with back pain, limited endurance but able to perform transfers Teressa only for technique for logroll sequence and perform sit to stand contact guard only with RWx; limited gait distance due to lines in recovery unit as pt was not able to transfer to orthopedic floor due to unavailable beds Plan for Treatment : cont PTx POC PORFIRIO AQUINO, PT - 12/29/2018 16:05 EST Pain Assessment Pain Scaled Used : 0-10 Pain scale Pain Score Pre-Intervention : 3 Location : Back Pain Intervention, Drug : Medicated PORFIRIO AQUINO, PT - 12/29/2018 16:05 EST Image 1 - Images currently included in the form version of this document have not been included in the text rendition version of the form. Anticipated Discharge Needs, OT/PT Anticipated Discharge to : Home, with family care Anticipated Home Equipment : Other: may benefit from RWx Recommend Continued Therapy at Discharge : Yes PORFIRIO AQUINO, PT - 12/29/2018 16:05 EST [place] PT Charges PT Eval Moderate Complexity : 1 PORFIRIO AQUINO, PT - 12/29/2018 16:05 EST documented in this encounter Plan of Treatment Upcoming Encounters Date Type Department Care Team (Late st Contact Info) Description 03/10/2025 1:15 PM EDT Office Visit [facility] Cardiology - [place] [address] [place] [address] Tabby Mcallister PA-C [address] [facility] [address] [place] [address] documented as of this encounter Visit Diagnoses Not on filedocumented in this encounter Care Teams Steamship Agent Relationship Specialty Start Date End Date Stacy Moise PA PCP - General 03/02/23 documented as of this encounter
--- OUTSIDE RECORDS SUMMARY | 2024-09-30 17:13 | XMS_ITS | Encounter Summary ---
Author Organization [employer] Address [address] [facility] [place] [address] Care Team Providers Care Porcelain Turner Name Role Phone Stacy Moise Primary Care Provider [phone] Encounter Details Date Type Department Care Team (Late st Contact Info) Description 12/23/2018 Historic Encounter [facility] [address] [place] [address] ProviderJuan Historical Social History Tobacco [...] Description 03/10/2025 1:15 PM EDT Office Visit [facility] Cardiology - [place] [address] [place] [address] Tabby Mcallister PA-C 227 [facility] [address] [place] [address] documented as of this encounter Procedures Procedure Name Priority Date/Time Associated Diagnosis Comments ABO/RH CONFIRMATION/RETYPE ([place] BKR) Routine 12/23/2018 12:56 PM EST documented in this encounter Results * ABO/RH CONFIRMATION/RETYPE (12/23/2018 12:56 PM EST) Method Tube 12/23/2018 6:39 PM EST Anti-A 0 12/23/2018 6:39 PM EST Anti-B 0 12/23/2018 6:39 PM EST Anti-D 4+ 12/23/2018 6:39 PM EST Con NT 12/23/2018 6:39 PM EST A1 3+ 12/23/2018 6:39 PM EST B 4+ 12/23/2018 6:39 PM EST ABO/Rh Repeat O POS 12/23/2018 6:39 PM EST Blood 12/23/2018 12:5 6 PM EST 12/23/2018 6:34 PM EST [facility] Historical Provider [facility] BLOOD BANK TEST ORD ERABLES Final Result [facility] [address] [phone] documented in this encounter Visit Diagnoses Not on filedocumented in this encounter Care Teams Porcelain Turner Relationship Specialty Start Date End Date Stacy Moise PA PCP - General 03/02/23 documented as of this encounter
--- OUTSIDE RECORDS SUMMARY | 2024-09-30 17:13 | XMS_ITS | Encounter Summary ---
Author Organization [facility] [employer] Address [address] [place] [address] Care Team Providers Care Tower Equipment Installer Name Role Phone Stacy Moise Primary Care Provider [phone] Encounter Details Date Type Department Care Team (Late st Contact Info) Description 12/23/2018 Transcribed Document [facility] [place] [address] [place] [address] ProviderMireya MD [address] [place] [address] [phone] Social History Tobacco Use Types Packs/Day Years Used Date Smoking Tobacco: Never Assessed Sex and Gender Information Value Date Recorded Sex Assigned at Not on file Legal Sex Male 5:25 PM CDT Gender Identity Not on file Sexual Orientation Not on file documented as of this encounter Miscellaneous Notes * Cerner Conversion Note - Historical ProviderMD - 12/23/2018 12:00 PM BACK WEDGER PAT Adult Entered On: 12/23/2018 12:09 EST Performed On: 12/23/2018 12:00 EST by RENETTA TRAYLOR RN Vital Measurements Temperature Source : Temporal artery scanning Temperature Mode : Fahrenheit Temperature, Fahrenheit : 97.4 Deg F Clinical Temperature, C : 36.3 Deg C Peripheral Pulse Rate : 82 bpm Respiratory Rate : 19 Breaths/Min Systolic Blood Pressure : 144 mmHg (HI) Diastolic Blood Pressure : 78 mmHg Oxygen Saturation : 99 % Oxygen Therapy Mode : Room air RENETTA TRAYLOR RN - 12/23/2018 12:00 EST Pain Assessment Pain Assessment : Initial assessment Pain Scale Used : 0-10 Scale Location : Back, lower, Hip, left, Leg, left Pain Worsened by : Movement RENETTA TRAYLOR RN - 12/23/2018 12:00 EST Height and Weight, Clinical Dosing Height Source : Measured Height Entry Format : [place] Height, Feet : 5 ft(Converted to: 152 cm, 60 Inch) Height, Inches : 9 Inch(Converted to: 0 ft 9 Inch, 22.86 cm) Clinical Height : 175.26 cm Weight Source : Standing scale Weight Entry Format : [place] Clinical Dosing Weight : 77.73 kg Weight, Pounds : 171 lb Body Surface Area (BSA) : 1.93 m2 Body Mass Index : 25.3 kg/m2 (HI) [place] Body Weight : 70 kg RENETTA TRAYLOR RN - 12/23/2018 12:00 EST Health Histories Smoking Status : 10 or more cigarettes (1/2 pack or more)/day in last 30 days Smokeless Tobacco Status : Never Desires Tobacco Cessation Medication : Yes RENETTA TRAYLOR RN - 12/23/2018 12:00 EST Social History (As Of: 12/23/2018 12:09:47 EST) Tobacco: Smoking Status Current every day [...] by SON DUMONT PA-C) Infectious Disease History Infectious Disease History : Chicken pox/Shingles, Measles, Mumps, Pertussis (Whooping cough) Travel To Regions with Travel Advisories : No Travel Outside [place] Within Last 30 Days : No Contact With Traveler to Advisory Region : No Tuberculosis Symptoms : None RENETTA TRAYLOR RN - 12/23/2018 12:00 EST Anesthesia/Transfusion History Family History of Anesthesia Reaction : No prior transfusion(s) Blood Transfusion Acceptable to Patient : Yes Transfusion History : Prior anesthesia without reaction Family History of Anesthesia Reaction : None RENETTA TRAYLOR RN - 12/23/2018 12:00 EST Functional Assessment Functional ADL Evaluation Index EBN Bathing : Independent (2) Dressing : Independent (2) Toileting : Independent (2) Transferring Bed or Chair : Independent (2) Continence : Independent (2) Feeding : Independent (2) RENETTA TRAYLOR RN - 12/23/2018 12:00 EST ADL Index Score : 12 RENETTA TRAYLOR RN - 12/23/2018 12:00 EST Advance Directive Patient has Advance Directive *Q : No, patient requests information about Advance Directive Patient Given Information about AD : Yes RENETTA TRAYLOR RN - 12/23/2018 12:00 EST Psychosocial History Do You Have a History of the Following? : Patient denies history Currently in Unsafe Situation : No Tried to Harm Yourself in the Past? : No Thoughts of Harming/Killing Yourself : No RENETTA TRAYLOR RN - 12/23/2018 12:00 EST Teaching/Learning Assessment Barriers To Learning : None evident Individuals Taught : Patient, Spouse Readiness to Learn : Cooperative Readiness to Learn : Explanation, Printed materials RENETTA TRAYLOR RN - 12/23/2018 12:00 EST Education Topics, Periop Preadmission Perioperative Education Grid Arrival Time/Place : Verbalizes understanding CHG Preoperative Bathing/Cloths : Verbalizes understanding Falls : Verbalizes understanding Infection Control : Verbalizes understanding IV's : Verbalizes understanding NPO Status/Directions : Verbalizes understanding Pain Management : Verbalizes understanding Postoperative Care Preparations : Verbalizes understanding Preprocedure Preparations : Verbalizes understanding Preprocedure Tests/Labs : Verbalizes understanding Remove Body Piercings : Verbalizes understanding Responsible Adult : Verbalizes understanding Take/Hold Medications Pre-Procedure : Verbalizes understanding RENETTA TRAYLOR RN - 12/23/2018 12:00 EST Responsible Adult Contact Information : toyn spouse RENETTA TRAYLOR RN - 12/23/2018 12:00 EST General Info Preferred Name : scottie Alvarado Family/Rep/Phys Notified of Admit : No Emergency Contact #1 : tony Emergency Contact #1 Emergency Contact #1 Relationship : spouse Emergency Contact #2 : none Emergency Contact #2 Phone Number : none Emergency Contact #2 Relationship : none Information Obtained From : Patient Primary Language : Ugandan Preferred Communication Mode : Verbal Communication Barrier : None RENETTA TRAYLOR RN - 12/23/2018 12:00 EST Reed Scale Reed Sensory Perception : Slightly limited Reed Moisture : Rarely moist Reed Activity : Walks occasionally Reed Mobility : Slightly limited Reed Nutrition : Adequate Reed Friction and Shear : No apparent problem Reed Score : 19 RENETTA TRAYLOR RN - 12/23/2018 12:00 EST Sleep Apnea Risk Assmt Hx of Obstructive Sleep Apnea Diagnosis : No Snore Loudly : No Tired, Fatigued, or Sleepy During Day : No Observed Stopping Breathing During Sleep : Yes Have/Are Being Treated for Hypertension : Yes STOP Sleep Apnea Risk Level Score : 2 STOP Sleep Apnea Risk Level : High RENETTA TRAYLOR RN - 12/23/2018 12:00 EST Pain Scale Intensity : 8 RENETTA TRAYLOR RN - 12/23/2018 12:00 EST Image 4 - Images currently included in the form version of this document have not been included in the text rendition version of the form. Electronically signed by Katie Pizarro Conversion Lease Administration Supervisor Cerner at 02/16/2023 4:03 PM CDT documented in this encounter Plan of Treatment Upcoming Encounters Date Type Department Care Team (Late st Contact Info) Description 03/10/2025 1:15 PM EDT Office Visit [facility] Cardiology - [address] [address] Tabby Mcallister PA-C [address] [facility] [address] [place] [address] documented as of this encounter Visit Diagnoses Not on filedocumented in this encounter Care Teams Tower Equipment Installer Relationship Specialty Start Date End Date Stacy Moise PA PCP - General 03/02/23 documented as of this encounter
--- OUTSIDE RECORDS SUMMARY | 2024-09-30 17:13 | XMS_ITS | Encounter Summary ---
Author Organization [employer] Address [address] [facility] [place] [address] Care Team Providers Care Printed Circuit Layout Taper Name Role Phone Stacy Moise Primary Care Provider [phone] Encounter Details Date Type Department Care Team (Late st Contact Info) Description 12/29/2018 Transcribed Document [facility] [place] [facility] [place] [address] ProviderMireya MD [address] [place] [id number] Social History Tobacco Use Types Packs/Day Years Used Date Smoking Tobacco: Never Assessed Sex and Gender Information Value Date Recorded Sex Assigned at Not on file Legal Sex Male 5:25 PM CDT Gender Identity Not on file Sexual Orientation Not on file documented as of this encounter Miscellaneous Notes * Cerner Conversion Note - Historical ProviderMD - 12/29/2018 2:00 AM RESIDENT CARE DIRECTOR Spiritual Care Assessment Entered On: 12/29/2018 9:11 EST Performed On: 12/29/2018 9:10 EST by JEROD ZAMARRIPA Interventions Advance Directive Information Provided : Yes Advance Directive Comment : Provided written information prior to surgery. Pt. acknowledged as decision maker. Educated pt to request ornamental metal fabricator apprentice if/ when ready to complete. JEROD ZAMARRIPA - 12/29/2018 9:10 EST documented in this encounter Plan of Treatment Upcoming Encounters Date Type Department Care Team (Late st Contact Info) Description 03/10/2025 1:15 PM EDT Office Visit [facility] Cardiology - [address] [address] Tabby Mcallister PA-C [address] [place] [address] [place] [address] documented as of this encounter Visit Diagnoses Not on filedocumented in this encounter Care Teams Printed Circuit Layout Taper Relationship Specialty Start Date End Date Stacy Moise PA PCP - General 03/02/23 documented as of this encounter
--- OUTSIDE RECORDS SUMMARY | 2024-09-30 17:13 | XMS_ITS | Encounter Summary ---
Author Organization [facility] [employer] Address [address] [facility] [place] [address] Care Team Providers Care Internal Revenue Service Agent Name Role Phone Stacy Moise Primary Care Provider [phone] Encounter Details Date Type Department Care Team (Late st Contact Info) Description 12/29/2018 Transcribed Document [facility] Family Medicine [address] [place] [address] ProviderMireya MD [address] [place] [id number] Social History Tobacco Use Types Packs/Day Years Used Date Smoking Tobacco: Never Assessed Sex and Gender Information Value Date Recorded Sex Assigned at Not on file Legal Sex Male 5:25 PM CDT Gender Identity Not on file Sexual Orientation Not on file documented as of this encounter Miscellaneous Notes * Cerner Conversion Note - Mireya Osuna MD - 12/29/2018 11:20 AM MEDICAL STAFF CREDENTIALING COORDINATOR [facility] Main OR PACU Summary Primary Physician: CARLA VAZQUEZ MD-SNU Finalized Date/Time: 12/30/18 13:53:52 Pt. Name: SCOTTIE CURRAN ERIKA /Sex: 1945 Male Med Rec #: [id number] Physician: CARLA VAZQUEZ MD-SNU Financial #: [id number] Pt. Type: I Room/Bed: ASA/8 Admit/Disch: 12/29/18 06:57:00 - Institution: [facility] Main OR PACU I Case Times Entry 1 In PACU I 12/29/18 12:40:00 Ready for PACU 12/29/18 16:45:00 Discharge Discharge from PACU 12/29/18 16:45:00 I Last Modified By: Symone Payne RN 12/29/18 16:47:40 Finalized By: Melissa Oliveira, RN Document Signatures Signed By: Symone Payne RN 12/29/18 16:47 Melissa Oliveira RN 12/30/18 13:53 Unfinalized History Date/Time Username Reason for Unfinalizing Freetext Reason for Unfinalizing 12/30/18 13:50 [email or web address] Modify Pick List Electronically signed by [facility] Conversion Dry Press Operator Cerner at 02/16/2023 4:05 PM CDT documented in this encounter Plan of Treatment Upcoming Encounters Date Type Department Care Team (Late st Contact Info) Description 03/10/2025 1:15 PM EDT Office Visit [facility] Cardiology - [place] [address] [place] [address] Tabby Mcallister PA-C 227 [facility] [address] [place] [address] documented as of this encounter Visit Diagnoses Not on filedocumented in this encounter Care Teams Internal Revenue Service Agent Relationship Specialty Start Date End Date Stacy Moise PA PCP - General 03/02/23 documented as of this encounter
--- OUTSIDE RECORDS SUMMARY | 2024-09-30 17:13 | XMS_ITS | Encounter Summary ---
Author Organization [employer] Address [address] [place] [address] Care Team Providers Care Cassandra Consultant Name Role Phone Stacy Moise Primary Care Provider [phone] Encounter Details Date Type Department Care Team (Late st Contact Info) Description 12/29/2018 Transcribed Document [facility] Family [facility] [place] [address] ProviderMireya MD [address] [place] [address] Social History Tobacco Use Types Packs/Day Years Used Date Smoking Tobacco: Never Assessed Sex and Gender Information Value Date Recorded Sex Assigned at Not on file Legal Sex Male 5:25 PM CDT Gender Identity Not on file Sexual Orientation Not on file documented as of this encounter Miscellaneous Notes * Cerner Conversion Note - Mireya Osuna MD - 12/29/2018 5:17 PM FOOD SAFETY FIELD SPECIALIST [address] [place] [address] Patient Copy Patient Information: Name: SCOTTIE CURRAN Current Date: 12/29/2018 17:17:58 : 1945 Patient Address: [facility] [place] [address] Patient Attending Physician: CARLA VAZQUEZ MD-[facility] Primary Care Provider: GER PATEL MD-[facility] Primary Care Provider Discharge Diagnosis: Weight on Admission: 171 lb, 0 oz Comment: Follow-up Instructions: With: Address: When: CARLA VAZQUEZ [address] [facility], [address] [place] [id number] [facility] (1) Comments: Appointment has been made for 01-14-19 at 1030 for staple and suture removal on 02-10-19 at 1000 for x ray on 02-10-[address] Zarate Discharge Instructions: Diet after Discharge: Resume usual diet as tolerated Activity after Discharge: As tolerated, Rest and relax today, No strenuous activities, No heavy lifting over 10 pounds Driving after Discharge: Do not drive, Other: no driving for 24 hours or while on narcotics Showering/Bathing:Other: May remove dressings oon thursday and shower as usual Wound/Incision Care after Discharge Comment: call for any temp over 101, redness or swelling or pus like drainage Resume plavvix in 5 days Resume Aspir in 3 days Immunizations Documented During Stay: No Immunizations Found Special Instructions: follow Dr. Laughlin post op instruction sheet Heart Failure Discharge Instructions (if any): Stroke Related Discharge Instructions (if any): Warfarin Related Discharge Instructions (if any): Final Medication List: Other Medications amLODIPine (Norvasc 10 mg oral tablet) 1 Tablet(s) Oral Every Day. aspirin (Aspir 81) 81 Milligram(s) Oral Every Day. cetirizine (ZyrTEC) 10 Milligram(s) Oral Every Day as needed as needed for allergy symptoms. clopidogrel (Plavix 75 mg oral tablet) 1 Tablet(s) Oral Every Day. esomeprazole (NexIUM 20 mg oral delayed release capsule) 1 Capsule(s) Oral Every Day. finasteride (Proscar) 5 Milligram(s) Oral Every Day. fluticasone nasal (Flonase) 2 [place](s) Nasal Every Other Day. furosemide (furosemide 20 mg oral tablet) 1 Tablet(s) Oral Every Day. gemfibrozil (Lopid 600 mg oral tablet) 1 Tablet(s) Oral Two Times A Day. isosorbide mononitrate 30 Milligram(s) Oral Every Morning. nebivolol (Bystolic 10 mg oral tablet) 1 Tablet(s) Oral Every Day. nitroglycerin (Nitrostat 0.4 mg sublingual tablet) 1 Tablet(s) SubLINgual every 5 minutes as needed Chest Pain. potassium chloride (potassium chloride 20 mEq oral tablet, extended release) 1 Tablet(s) Oral Two Times A Day. psyllium (Konsyl) Oral Every Other Day. rosuvastatin (Crestor 10 mg oral tablet) 1 Tablet(s) Oral Every Other Day. Patient Allergies: No Known Medication Allergies Medication Instructions: Take your medications faithfully. Do NOT skip [...] cramping, rapid heartbeat, difficulty sleeping, and nervousness. Medication Leaflets: acetaminophen and oxycodone (a SEET a MIN oh fen and OX i KOE done) Endocet 10/325, Endocet 2.5/325, Endocet 5/325, Endocet 7.5/325, Nalocet, Percocet 10/325, Percocet 2.5/325, Percocet 5/325, Percocet 7.5/325, Primalev, Primlev, Roxicet, Xartemis XR What is the most important information I should know about acetaminophen and oxycodone? MISUSE OF OPIOID MEDICINE CAN CAUSE ADDICTION, [...] blistering and peeling. What is acetaminophen and oxycodone? Oxycodone is an opioid pain medication, sometimes called a narcotic. Acetaminophen is a less potent pain reliever that increases the effects of oxycodone. Acetaminophen and oxycodone is a combination medicine used to relieve moderate to severe pain. Acetaminophen and oxycodone may also be used for purposes not listed in this medication guide. What should I discuss with my healthcare provider before taking acetaminophen and oxycodone? You should not use this medicine if you are allergic to acetaminophen or oxycodone, or if you have: ? severe asthma or breathing problems; or ?? a blockage in your stomach or intestines. Tell your doctor if you have ever had: ? liver disease; ?? a drug or alcohol [...] baby. How should I take acetaminophen and oxycodone? Follow all directions on your prescription label. Never take this medicine in larger amounts, or for longer than prescribed. An overdose can damage your liver or cause . Tell your doctor if the medicine seems to stop working as well in relieving your pain. Never share this medicine with another person, especially someone with a history of drug abuse or addiction. MISUSE CAN CAUSE ADDICTION, OVERDOSE, OR . Keep the medicine in a place where others cannot get to it. Selling or giving away acetaminophen and oxycodone is against the law. Measure liquid medicine [...] at . An overdose of acetaminophen and oxycodone can be fatal. The first signs of [...] should I avoid while taking acetaminophen and oxycodone? Avoid driving or operating machinery until you [...] the possible side effects of acetaminophen and oxycodone? Get emergency medical help if you have [...] your doctor at once if you have: ? noisy breathing, sighing, shallow breathing; ?? a light-headed feeling, like you might pass out; ?? weakness, tiredness, fever, unusual bruising or bleeding; ?? confusion, unusual thoughts or behavior; ?? problems with urination; ?? liver problems--nausea, upper stomach pain, tiredness, [...] fertility are permanent. Common side effects include: ? dizziness, drowsiness, feeling tired; ?? feelings of extreme happiness or sadness; ?? nausea, vomiting, stomach pain; ?? constipation; or ?? headache. This is not a complete list of side effects and others may occur. Call your doctor for medical advice about side effects. You may report side effects to FDA at 5-121-RWL-5804. What other drugs will affect acetaminophen and oxycodone? You may have breathing problems or withdrawal [...] your doctor knows if you also use: ? cold or allergy medicines, bronchodilator asthma/COPD medication, [...] complete. Other drugs may affect acetaminophen and oxycodone, including prescription and [id number] medicines, vitamins, and herbal products. Not all possible interactions are listed here. Where can I get more information? Your doctor or pharmacist can provide more information about acetaminophen and oxycodone. Remember, keep this and all other medicines out of the reach of children, never share your medicines with others, and use this medication only for the indication prescribed. Every effort has been made to ensure that the information provided by [employer]. ('[employer]') is accurate, up-to-date, and complete, but no guarantee is made to that effect. Drug information contained herein may be time sensitive. [employer] information has been compiled for use by healthcare practitioners and consumers in the [place] and therefore [employer] does not warrant that uses outside of the [place] are appropriate, unless specifically indicated otherwise. [employer] drug information does not endorse drugs, diagnose patients or recommend therapy. [employer] drug information is an informational resource designed [...] effective or appropriate for any given patient. [employer] does not assume any responsibility for any aspect of healthcare administered with the aid of information [employer] provides. The information contained herein is not intended to cover all possible uses, directions, precautions, warnings, drug interactions, allergic reactions, or adverse effects. If you have questions about the drugs you are taking, check with your doctor, nurse or pharmacist. Copyright 4670-2033 [employer]. Version: 18.02. Revision Date: 09/29/2018. CIGARETTE SMOKING: The facts are clear, cigarette smoking will shorten your life. Smoking can cause many illnesses along the way. As a healthcare provider, we recommend that you stop smoking. Assistance with quitting is available by contacting 1-553-OXVK-NOW. This is a free resource providing counseling, support, and referral. Or you may contact your personal physician. 4 WAYS TO GET AHEAD OF SEPSIS SEPSIS is a MEDICAL EMERGENCY. Time matters! Infections put you and your family at risk for a life-threatening condition called sepsis. Sepsis is the body???s extreme response to an infection. It is life-threatening, and without timely treatment, sepsis can rapidly lead to tissue damage, organ failure, and . Sepsis happens when an infection you already have???in your skin, lungs, urinary tract or somewhere else???triggers a chain reaction throughout your body. 1 [...] sepsis or if you have an infection that???s not getting better or is getting worse. To learn more about sepsis and how to prevent infections, visit www.cdc.gov/sepsis. STROKE is an EMERGENCY Every Min[employer] Counts ACT F.A.S.T! FACE ?? Facial droop ?? Uneven smile ARM ?? Arm numbness ?? Arm weakness SPEECH ?? Slurred speech ?? Difficulty speaking or understanding TIME ?? Call 911 and get to the hospital immediately Have the ambulance go to the nearest stroke center. STROKE Risk Factors High blood pressure High cholesterol Heart Disease Diabetes Smoking Heavy alcohol use Physical inactivity and obesity Atrial Fibrillation (irregular heartbeat) Family history of stroke Reminder: Be sure to sign up for the [employer] patient portal, which gives you 25/05 access to your medical information ??? including these discharge instructions ??? using your computer, smartphone, or tablet. Just go to [employer] to get started. Questions? Call . [facility] would like to thank you for allowing us to assist you with your healthcare needs. MAGDY Conte JERRY LAN, (or site safety representative) have received the above patient education materials/instructions and have verbalized understanding: Patient Signature _ Date/Time Patient Baggage Smasher Signature (if needed) Date/Time Clinician/Hospital Baggage Smasher Signature (if needed) Date/Time documented in this encounter Plan of Treatment Upcoming Encounters Date Type Department Care Team (Late st Contact Info) Description 03/10/2025 1:15 PM EDT Office Visit [facility] Cardiology - [place] [address] [place] [address] Tabby Mcallister PA-C [address] [place] [address] documented as of this encounter Visit Diagnoses Not on filedocumented in this encounter Care Teams Cassandra Consultant Relationship Specialty Start Date End Date Stacy Moise PA PCP - General 03/02/23 documented as of this encounter
--- OUTSIDE RECORDS SUMMARY | 2024-09-30 17:13 | XMS_ITS | Encounter Summary ---
Author Organization [employer] Address [address] [facility] [place] [address] Care Team Providers Care Remote Sensing Surveyor Name Role Phone Stacy Moise Primary Care Provider [phone] Encounter Details Date Type Department Care Team (Late st Contact Info) Description 12/23/2018 Historic Encounter [facility] [address] [place] [address] ProviderJuan Historical Social History Tobacco [...] Office Visit [facility] Cardiology - [place] [address] [place] [address] Tabby Mcallister PA-C [address] [place] [address] [address] [place] [address] documented as of this encounter Procedures Procedure Name Priority Date/Time Associated Diagnosis Comments BMP BASIC METABOLIC PANEL ([facility] BKR DATA CONV) Routine 12/23/2018 12:56 PM EST documented in this encounter Results * (ABNORMAL) BMP BASIC METABOLIC PANEL ([facility] BKR DATA CONV) (12/23/2018 12:56 PM EST) Glucose Level 114(H) 74 - 106 mg/dL 12/23/2018 6:31 PM EST Comment: [employer] has become aware of sulfasalazine and sulfapyridine [...] Urea Nitrogen 20 7 - 22 mg/dL 12/23/2018 6:31 PM EST Creatinine Level 1.00 0.70 - 1.30 mg/dL 12/23/2018 6:31 PM EST Sodium Level 142 136 - 146 mmol/L 12/23/2018 6:31 PM EST Potassium Level 4.2 3.5 - 5.1 mmol/L 12/23/2018 6:31 PM EST Chloride Level 111 102 - 112 mmol/L 12/23/2018 6:31 PM EST Carbon Dioxide Level 25 21 - 32 mmol/L 12/23/2018 6:31 PM EST Anion Gap 10 9 - 20 12/23/2018 6:31 PM EST Calcium Level 9.0 8.4 - 10.1 mg/dL 12/23/2018 6:31 PM EST Bun/Creatinine 20.0 8.0 - 20.0 12/23/2018 6:31 PM EST eGFR NonAfrican >60 >=60 mL/min/1. 73m2 12/23/2018 6:32 PM EST Comment: GFR <60 suggests chronic kidney disease, if found over 3 month period. GFR <15 indicates renal failure. eGFR >60 >=60 mL/min/1. 73m2 12/23/2018 6:32 PM EST Comment: GFR <60 suggests chronic kidney disease, if found over 3 month period. GFR <15 indicates renal failure. Blood 12/23/2018 12:5 6 PM EST 12/23/2018 6:14 PM EST [facility] Historical Provider LAB BLOOD ORDERABLES Fi nal Result [facility] [address] [phone] documented in this encounter Visit Diagnoses Not on filedocumented in this encounter Care Teams Remote Sensing Surveyor Relationship Specialty Start Date End Date Stacy Moise PA PCP - General 03/02/23 documented as of this encounter
--- OUTSIDE RECORDS SUMMARY | 2024-09-30 17:13 | XMS_ITS | Encounter Summary ---
Author Organization [employer] Address [address] [facility] [place] [address] Care Team Providers Care Specialist Managers Name Role Phone Stacy Moise Primary Care Provider [phone] Encounter Details Date Type Department Care Team (Late st Contact Info) Description 12/29/2018 Transcribed Document [facility] Family Medicine [address] [place] [address] ProviderMireya MD [facility] [place], [place] [id number] Social History Tobacco Use Types Packs/Day Years Used Date Smoking Tobacco: Never Assessed Sex and Gender Information Value Date Recorded Sex Assigned at Not on file Legal Sex Male 5:25 PM CDT Gender Identity Not on file Sexual Orientation Not on file documented as of this encounter Miscellaneous Notes * Cerner Conversion Note - Mireya ProviderMD - 12/29/2018 5:15 PM FITTING SUPERVISOR Discharge Instructions Entered On: 12/29/2018 17:17 EST Performed On: 12/29/2018 17:15 EST by PETER FINN RN DC Instructions HWD Stroke/TIA Discharge Ins : N/A Heart Failure Discharge Ins : N/A Warfarin Discharge Ins : N/A Diet After Discharge : Resume usual diet as tolerated Activity After Discharge : As tolerated, Rest and relax today, No strenuous activities, No heavy lifting over 10 pounds Driving After Discharge : Do not drive, Other: no driving for 24 hours or while on narcotics Showering/Bathing : Other: May remove dressings oon thursday and shower as usual Wound/Incision Care At Discharge Comment cision Care At Discharge Comment : call for any temp over 101, redness or swelling or pus like drainage Resume plavvix in 5 days Resume Aspir in 3 days Special Instructions : follow Dr. Laughlin post op instruction sheet PETER FINN, RN - 12/29/2018 17:15 EST Electronically signed by [facility] Conversion Manager [employer] Cerner at 02/16/2023 3:45 PM CDT documented in this encounter Plan of Treatment Upcoming Encounters Date Type Department Care Team (Late st Contact Info) Description 03/10/2025 1:15 PM EDT Office Visit [facility] Cardiology - [place] [address] [place] [address] Tabby Mcallister PA-C [address] [facility] [address] [place] [address] documented as of this encounter Visit Diagnoses Not on filedocumented in this encounter Care Teams Specialist Managers Relationship Specialty Start Date End Date Stacy Moise PA PCP - General 03/02/23 documented as of this encounter
--- OUTSIDE RECORDS SUMMARY | 2024-09-30 17:13 | XMS_ITS | Encounter Summary ---
Author Organization [facility] In iatives Address [address] [place] [address] Care Team Providers Care Director Regulatory Compliance Name Role Phone Stacy Moise Primary Care Provider [phone] Encounter Details Date Type Department Care Team (Late st Contact Info) Description 12/29/2018 Transcribed Document [facility] Family Medicine [address] [place] [address] ProviderMireya MD [address] [place] [address] [id number] Social History Tobacco Use Types Packs/Day Years Used Date Smoking Tobacco: Never Assessed Sex and Gender Information Value Date Recorded Sex Assigned at Not on file Legal Sex Male 5:25 PM CDT Gender Identity Not on file Sexual Orientation Not on file documented as of this encounter Miscellaneous Notes * Cerner Conversion Note - Mireya ProviderMD - 12/29/2018 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 Name: SCOTTIE CURRAN ERIKA /Sex: 1945 Male Med Rec #: [id number] Physician: CARLA VAZQUEZ MD-TOMEKA Financial #: [id number] Pt. Type: I Room/Bed: ASA/8 Admit/Disch: 12/29/18 06:57:00 - Institution: [facility] IntraOp Case Attendance Entry 1 Entry 2 Entry 3 Case Attendee CARLA VAZQUEZ Barrett, Eve, Surgical TUYET MOHAN RN -SNU Tech Role Performed Surgeon/Proceduralist, Scrub, First Sausage Canner, Second First Time In 12/29/18 10:51:00 12/29/18 10:51:00 12/29/18 11:07:00 Time Out 12/29/18 12:38:00 12/29/18 12:38:00 12/29/18 12:05:00 Procedure Lumbar Fusion Posterior Lumbar Fusion Posterior Lumbar Fusion Posterior 3 Level 3 Level 3 Level Other Attendee RN LUNCH RELIEF Superficial Wound Closed By: Last Modified By: STEVEN REED, RN STEVEN REED, RN STEVEN REED, RN 12/29/18 12:38:47 12/29/18 12:38:47 12/29/18 12:11:29 Entry 4 Entry 5 Entry 6 Case Attendee STEVEN REED, RN Sunday Tovar, BRIAN BUSTILLO PA Cone Treater Role Performed Sausage Canner, First Hot Car Operator Physician radiology assistant Time In 12/29/18 10:51:00 12/29/18 10:51:00 12/29/18 10:51:00 Time Out 12/29/18 12:38:00 12/29/18 12:38:00 12/29/18 12:38:00 Procedure Lumbar Fusion Posterior Lumbar Fusion Posterior Lumbar Fusion Posterior 3 Level 3 Level 3 Level Other Attendee Superficial Wound Closed By: Last Modified By: STEVEN REED, RN STEVEN REED, RN STEVEN REED, RN 12/29/18 12:38:47 12/29/18 12:38:47 12/29/18 12:38:47 Entry 7 Entry 8 Entry 9 Case Attendee Tom Robin, MERRICK RPECIADO MD OTHER, ATTENDEE Role Performed MUTUAL FUND ACCOUNTANT/Nurse Glass Bulb Silverer Anesthesiologist Vendor Time In 12/29/18 10:51:00 12/29/18 10:51:00 12/29/18 10:51:00 Time Out 12/29/18 12:38:00 12/29/18 12:38:00 12/29/18 12:38:00 Procedure Lumbar Fusion Posterior Lumbar Fusion Posterior Lumbar Fusion Posterior 3 Level 3 Level 3 Level Other Attendee ANDRE BAUER Superficial Wound Closed By: Last Modified By: STEVEN REED, RN STEVEN REED, RN STEVEN REED, RN 12/29/18 12:38:47 12/29/18 12:38:47 12/29/18 11:31:04 Entry 10 Case Attendee MARIELLE HERNANDEZ Role Performed Scrub, First Time In 12/29/18 12:10:00 Time Out 12/29/18 12:38:00 Procedure Lumbar Fusion Posterior [address] LUNCH RELIEF Superficial Wound Closed By: Last Modified By: STEVEN REED, MIKE 12/29/18 12:11:29 [facility] IntraOp Case Attendance Audit 12/29/18 12:38:47 Museum Informatics Specialist: WASSONSY Modifier: WASSONSY 1 <+> Time Out 1 <*> Procedure Lumbar Fusion Posterior 3 Level 2 <+> Time Out 2 <*> Procedure Lumbar Fusion Posterior 3 Level 3 <*> Procedure Lumbar Fusion Posterior 3 Level 4 <+> Time Out 4 <*> Procedure Lumbar Fusion Posterior 3 Level 5 <+> Time Out 5 <*> Procedure Lumbar Fusion Posterior 3 Level 6 <+> Time Out 6 <*> Procedure Lumbar Fusion Posterior 3 Level 7 <+> Time Out 7 <*> Procedure Lumbar Fusion Posterior 3 Level 8 <+> Time Out 8 <*> Procedure Lumbar Fusion Posterior 3 Level 9 <+> Time Out 9 <*> Procedure Lumbar Fusion Posterior 3 Level 10 <+> Time Out 10 <*> Procedure Lumbar Fusion Posterior 3 Level 12/29/18 12:11:29 Museum Informatics Specialist: WASSONSY Modifier: WASSONSY 3 <*> Time In 12/29/18 10:51:00 3 <+> Time Out 3 <*> Procedure Lumbar Fusion Posterior 3 Level 3 <+> Other Attendee <+> 10 Case Attendee <+> 10 Role Performed <+> 10 Time In <+> 10 Procedure <+> 10 Other Attendee 12/29/18 11:38:27 Museum Informatics Specialist: WASSONSY Modifier: WASSONSY 1 <*> Procedure Lumbar Fusion Posterior 3 Level 2 <+> Time In 2 <*> Procedure Lumbar Fusion Posterior 3 Level 3 <+> Time In 3 <*> Procedure Lumbar Fusion Posterior 3 Level 4 <+> Time In 4 <*> Procedure Lumbar Fusion Posterior 3 Level 5 <+> Time In 5 <*> Procedure Lumbar Fusion Posterior 3 Level 6 <+> Time In 6 <*> Procedure Lumbar Fusion Posterior 3 Level 7 <+> Time In 7 <*> Procedure Lumbar Fusion Posterior 3 Level 8 <+> Time In 8 <*> Procedure Lumbar Fusion Posterior 3 Level 9 <+> Time In 9 <*> Procedure Lumbar Fusion Posterior 3 Level 12/29/18 11:31:04 Museum Informatics Specialist: WASSONSY Modifier: WASSONSY <+> 2 Case Attendee <+> 2 Role Performed <+> 2 Procedure <+> 3 Case Attendee <+> 3 Role Performed <+> 3 Procedure <+> 4 Case Attendee <+> 4 Role Performed <+> 4 Procedure <+> 5 Case Attendee <+> 5 Role Performed <+> 5 Procedure <+> 6 Case Attendee <+> 6 Role Performed <+> 6 Procedure <+> 7 Case Attendee <+> 7 Role Performed <+> 7 Procedure <+> 8 Case Attendee <+> 8 Role Performed <+> 8 Procedure <+> 9 Case Attendee <+> 9 Role Performed <+> 9 Procedure <+> 9 Other Attendee [facility] IntraOp Case Times Entry 1 Patient In Room Time 12/29/18 10:51:00 Out Room Time 12/29/18 12:38:00 Anesthesia Start Time 12/29/18 10:51:00 Stop Time 12/29/18 12:38:00 Surgery / Procedure Times Start Time 12/29/18 11:20:00 Stop Time 12/29/18 12:29:00 Last Modified By: STEVEN REED RN 12/29/18 12:35:59 [facility] IntraOp Case Times Audit 12/29/18 12:38:45 Museum Informatics Specialist: WASSONSY Modifier: WASSONSY <+> 1 Out Room Time <+> 1 Stop Time 12/29/18 12:35:59 Museum Informatics Specialist: WASSONSY Modifier: WASSONSY <+> 1 Stop Time 12/29/18 11:20:45 Museum Informatics Specialist: WASSONSY Modifier: WASSONSY <+> 1 Start Time [facility] IntraOp Cautery Entry 1 Entry 2 ESU Identification Cautery Type Monopolar ESU BiPolar ESU Cautery Type Comments ID Number [id number] ID Type Hospital Number Serial Number Cautery Settings Cut Setting 50 8 Coag Setting 50 50 Blend Setting Bipolar Setting Argon Setting Argon Garcia ESU Grounding Pad Ground Pad Type Adult Grounding Pad Type Comment Grounding Pad Site Right thigh Grounding Pad Site Comment Grounding Pad STEVEN REED RN Applied By Grounding Pad Site Warm, dry and intact Skin Condition Before Cautery Site Skin Condition Before Comment Grounding Pad Site Unchanged Skin Condition After Cautery Site Skin Condition After Comment Last Modified By: STEVEN REED RN WASSON, SANDRA D, RN 12/29/18 12:11:57 12/29/18 11:26:30 [facility] IntraOp Cautery Audit 12/29/18 12:11:57 Museum Informatics Specialist: WASMICAELASY Modifier: WASSONSY <+> 1 Ground Pad Type <+> 1 Grounding Pad Site <+> 1 Grounding Pad Applied By <+> 1 Grounding Pad Site Skin Condition Before Cautery <+> 1 Grounding Pad Site Skin Condition After Cautery [facility] IntraOp Communication Entry 1 Communication To Family/Significant other Comment START Communication By TUYET MOHAN RN Date and Time 12/29/18 11:20:00 Last Modified By: STEVEN REED RN 12/29/18 11:31:14 [facility] IntraOp Communication Audit 12/29/18 12:12:14 Museum Informatics Specialist: WASMICAELASY Modifier: WASSONSY <+> 1 Date and Time [facility] IntraOp Counts Verification Entry 1 Entry 2 Procedure Lumbar Fusion Posterior Lumbar Fusion Posterior 3 Level 3 Level Count Info Count Type Sponge, Sharps Sponge, Sharps, Miscellaneous Counts Verification Baseline/pre-procedure Before wound closure Sequence Count Results Correct, surgeon Correct, surgeon notified notified If Incorrect or Waived complete the Counts Action Taken form: If Intentional Retention, complete the Intential Retention form: Counts Performed By Count Performed By Shagufta Martini Surgical BRUMMETT, JAMES A. (Scrub) Tech Count Performed By STEVEN REED, STEVEN ALVAREZ, RN (RN) Last Modified By: STEVEN REED RN WASSON, SANDRA D RN 12/29/18 11:35:17 12/29/18 12:21:49 [facility] IntraOp Counts Verification Audit 12/29/18 12:21:49 Museum Informatics Specialist: REGGIE Modifier: WASSONSY <+> 2 Procedure <+> 2 Count Type <+> 2 Counts Verification Sequence <+> 2 Count Results <+> 2 Count Performed By (Scrub) <+> 2 Count Performed By (RN) [facility] IntraOp Counts Final Entry 1 Procedure Lumbar Fusion Posterior 3 Level Final Count Info Count Type Sponge, Sharps, Miscellaneous Counts Verification Skin Closure/end of Sequence procedure Count Results Correct, surgeon notified Counts Performed By Count Performed By MARIELLE HERNANDEZ (Scrub) Count Performed By STEVEN REED RN (RN) Last Modified By: STEVEN REED RN 12/29/18 12:25:12 [facility] IntraOp Departure from OR Entry 1 Integumentary Assessment Integumentary WDL Assessment WDL Transfer/Handoff Transfer to PACU Phase I Handoff Method Bedside/Face to face, Phone call Post-op Transport Stretcher/Gurney Via Patient Transport BRIAN BUSTILLO PA, Accompanied by Tom Robin CRNA Last Modified By: STEVEN REED RN 12/29/18 11:34:44 [facility] IntraOp Dressing and Packing Entry 1 Type Dressing Location OP SITE Wound Dressing Item Steristrip, Other Applied By BRIAN BUSTILLO PA Other Comments NEOSPORIN OINTMENT, STERISTIRPS, COVADERMS Last Modified By: STEVEN REED RN 12/29/18 12:13:39 General Comments: COVERDERM [facility] IntraOp Dressing and Packing Audit 12/29/18 12:13:39 Museum Informatics Specialist: REGGIE Modifier: BRIANNASY 1 <*> Location 1 <*> Location 1 <*> Location 1 <*> Wound Dressing Item 1 <*> Wound Dressing Item 1 <*> Wound Dressing Item 1 <*> Other Comments 1 <*> Other Comments 1 <*> Other Comments [facility] IntraOp Fire Risk Assessment Entry 1 Fire Info Surgical Site or 0- No Incision Above the Xyphoid Open O2 Source 0- No (Mask or Cannula) Available Ignition 1- Yes (ESU, Laser, Light Source) Fire Risk 1 Assessment Score Fire Score Fire Risk Yes Assessment 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 By Fire Risk 12/29/18 10:50:00 Assessment Verified Date/Time Fire Risk Standard Fire Yes Safety Precautions Followed Last Modified By: STEVEN REED RN 12/29/18 11:33:47 [facility] IntraOp Fire Risk Assessment Audit 12/29/18 12:14:01 Museum Informatics Specialist: WASSONSY Modifier: WASSONSY 1 <*> Fire Risk Assessment Verified By TUYET MOHAN RN 1 <*> Fire Risk Assessment Verified 12/29/18 11:33:00 Date/Time 1 <-> High Risk Protocol Implemented Yes [facility] IntraOp General Case Pharmacy Technician Instructor 1 Case Information OR OR 10 [facility] Case Level 1 Room Verified Yes Wound Class I - Clean Specialty SN Neurosurgery Anesthesia Type General ASA Class 3 Diagnosis Preop Diagnosis LUMBAR SPONDYLOLISTHESIS Postop Same As Preop No Postop Diagnosis PLEASE SEE MD NOTES. Last Modified By: STEVEN REED RN 12/29/18 11:35:53 [facility] IntraOp General Case Data Audit 12/29/18 12:14:18 Museum Informatics Specialist: WASSONSY Modifier: WASSONSY 1 <*> Preop Diagnosis LUMBAR STENOSIS 12/29/18 11:47:51 Museum Informatics Specialist: WASSONSY Modifier: WASSONSY <+> 1 Postop Same As Preop <+> 1 Preop Diagnosis <+> 1 Postop Diagnosis [facility] IntraOp Implant Log Entry 1 Entry 2 Entry 3 Type Implant (Synthetic) Implant (Synthetic) Implant (Synthetic) Implant Log Implant Type Other Hardware Hardware Tissue Implant Type Implant BONE VIVIGEN FORMABLE CONCORDE BUL YOUSIF IMP VPR PRM CFXFEN XTAB Identification CELL [id number] Description Implant Quantity 1 1 4 Implant Site OPSITE OP SITE OP SITE Implant [id number] Identification Model Number Implant Identification Serial Number Implant Identification Lot Number Implant Lifenet:Lifenet J&J:Depuy:Depuy Spine J&J:Depuy:Depuy Spine Identification Transplant Srv Associate Professor Of Engineering Name: Implant [id number] Identification Catalog Number Implant Size Implant Has an Yes Expiration Date Implant Expiration 12/13/19 Date Wasted Radioactive Material Time Implanted Tissue Implant Continue for Tissue Implant Documentation Tissue Identification Number Graft Prep Per Associate Professor Of Engineering Instructions: Tissue Preparation Method: Reconstitution Solution: Reconstitution Solution Lot Number Reconstitution Solution Expiration Date: Thawing Solution Thawing Solution Lot Number Thawing Solution Expiration Date Preparation Materials, Other Preparation Materials, Other Lot Number Preparation Materials, Other Expiration Date Tissue Prepared/Processed By Associate Professor Of Engineering Paperwork Completed Implant Type Comment Last Modified By: STEVEN REED RN WASSON, SANDRA D, RN WASSON, SANDRA D, RN 12/29/18 11:47:32 12/29/18 12:24:29 12/29/18 12:24:29 Entry 4 Entry 5 Type Implant (Synthetic) Implant (Synthetic) Implant Log Implant Type Hardware Hardware Tissue Implant Type Implant EDMUNDO SPINE VIPER MIS MYKE PLY SCRW SET Identification [id number] Description Implant Quantity 2 4 Implant Site OP SITE OP SITE Implant Identification Model Number Implant Identification Serial Number Implant Identification Lot Number Implant J&J:Depuy:Depuy Spine J&J:Depuy:Depuy Spine Identification Associate Professor Of Engineering Name: Implant [id number] Identification Catalog Number Implant Size Implant Has an Expiration Date Implant Expiration Date Wasted Radioactive Material Time Implanted Tissue Implant Continue for Tissue Implant Documentation Tissue Identification Number Graft Prep Per Associate Professor Of Engineering Instructions: Tissue Preparation Method: Reconstitution Solution: Reconstitution Solution Lot Number Reconstitution Solution Expiration Date: Thawing Solution Thawing Solution Lot Number Thawing Solution Expiration Date Preparation Materials, Other Preparation Materials, Other Lot Number Preparation Materials, Other Expiration Date Tissue Prepared/Processed By Associate Professor Of Engineering Paperwork Completed Implant Type Comment Last Modified By: STEVEN REED RN WASSON, SANDRA D, RN 12/29/18 12:24:29 12/29/18 12:24:29 [facility] IntraOp Implant Log Audit 12/29/18 12:24:29 Museum Informatics Specialist: SITAMICAELARADHA Modifier: WASGREGORIO <+> 2 Implant Identification Description <+> 2 Implant Identification Associate Professor Of Engineering Name: <+> 2 Implant Site <+> 2 Implant Quantity <+> 2 Implant Identification Catalog Number <+> 2 Implant Type <+> 2 Type <+> 3 Implant Identification Description <+> 3 Implant Identification Associate Professor Of Engineering Name: <+> 3 Implant Site <+> 3 Implant Quantity <+> 3 Implant Identification Catalog Number <+> 3 Implant Type <+> 3 Type <+> 4 Implant Identification Description <+> 4 Implant Identification Associate Professor Of Engineering Name: <+> 4 Implant Site <+> 4 Implant Quantity <+> 4 Implant Identification Catalog Number <+> 4 Implant Type <+> 4 Type <+> 5 Implant Identification Description <+> 5 Implant Identification Associate Professor Of Engineering Name: <+> 5 Implant Site <+> 5 Implant Quantity <+> 5 Implant Identification Catalog Number <+> 5 Implant Type <+> 5 Type [facility] IntraOp Intraoperative Assessment Entry 1 Handoff Method Bedside/Face to face, Phone call Valid History / Yes Physical in Chart Preoperative Yes Checklist Reviewed/Evaluated Allergies Reviewed Yes Patient is Latex No Sensitive Isolation Not applicable Precautions Noted Level of WDL Consciousness (WDL = Alert, Oriented to Person, Place, and Time) Skin Assessment No Verified Present Upon IVs Arrival to OR Last Modified By: STEVEN REED RN 12/29/18 11:36:09 [facility] IntraOp Intraoperative Assessment Audit 12/29/18 12:14:26 Museum Informatics Specialist: WASSONSY Modifier: WASSONSY 1 <*> Skin Assessment Verified Yes [facility] IntraOp Intraoperative Equipment Entry 1 Type Equipment Equipment Equipment Mayra Suction System ID Number [id number] Setting 200 MM HG Intraop Monitoring Electrocardiogram Three lead placement (ECG) Electrode Placement Blood Pressure Non-Invasive BP Device Source Antiembolic Devices Antiembolic Devices Sequential compression device, knee high Antiembolic Device Bilateral Location Antiembolic Device [id number] ID Number Scopes Photo/Video Documentation Photo No Video No Last Modified By: STEVEN REED RN 12/29/18 12:17:40 [facility] IntraOp Intraoperative Equipment Audit 12/29/18 12:17:40 Museum Informatics Specialist: WASGREGORIO Modifier: WASSONSY <+> 1 Photo <+> 1 Video <+> 1 ID Number <+> 1 Setting <+> 1 Electrocardiogram (ECG) Electrode Placement <+> 1 Blood Pressure Source <+> 1 Antiembolic Device ID Number [facility] IntraOp Medication Admin Entry 1 Entry 2 Entry 3 Medication/Irrigant Bacitracin 50,00units lidocaine 1% w/ thrombin 5000units powder vial epinephrine 1:100,000 topical powder - 30ml vial - [id number] Combo Med List Time Administered Route of IRRIGATION LOCAL TOPICAL Administration Dose Dose 85989 10 5000 Unit of Measure units ml units Volume Administered By CARLA VAZQUEZ TUTT, MATTHEW PAIGE, TUTT, MATTHEW PAIGE, MD-SNU MD-SNU MD-SNU Procedure Irrigation Irrigant Volume In Irrigant Volume Out Last Modified By: STEVEN REED, STEVEN ALVAREZ RN WASSON, SANDRA D, RN 12/29/18 11:41:10 12/29/18 11:41:10 12/29/18 11:41:10 Entry 4 Entry 5 Medication/Irrigant SPNG SURGFOAM Neosporin 15Gm ointment [id number] - [id number] Combo Med List Time Administered Route of TOPICAL TOPICAL Administration Dose Dose 1 Unit of Measure pkt Volume Administered By CARLA VAZQUEZ TOMPKINS, BRYAN, PA MD-SNU Procedure Irrigation Irrigant Volume In Irrigant Volume Out Last Modified By: STEVEN REED, RN STEVEN REED, RN 12/29/18 11:41:10 12/29/18 12:21:32 General Comments: DR VAZQUEZ'S LOCAL: KENALOG 40 MG, TORADOL 15 MG, MARCAINE 0.25 % 30 ML [facility] IntraOp Medication Admin Audit 12/29/18 12:21:32 Museum Informatics Specialist: WASSONSY Modifier: WASSONSY 5 <*> Medication/Irrigant Neosporin 15Gm ointment - [id number] 5 <*> Medication/Irrigant Neosporin 15Gm ointment - [id number] 5 <*> Medication/Irrigant Neosporin 15Gm ointment - [id number] 5 <*> Route of Administration 5 <*> Route of Administration 5 <*> Route of Administration 5 <*> Administered By BRIAN BUSTILLO PA 5 <*> Administered By BRIAN BUSTILLO PA 5 <*> Administered By BRIAN BUSTILLO PA 5 <*> Dose 5 <*> Dose 5 <*> Dose 5 <*> Unit of Measure 5 <*> Unit of Measure 5 <*> Unit of Measure [facility] IntraOp Patient Positioning Entry 1 Procedure Lumbar Fusion Posterior 3 Level Body Position Prone Left Arm Position Secured on padded arm board Right Arm Position Secured on padded arm board Left Leg Position Uncrossed, parallel Right Leg Position Uncrossed, parallel Feet Uncrossed Yes Pressure Points Yes Checked Positioning Devices Arm Board, Pillows, Pad, Arm, Head Rest, Pad, Elbow, Pillows, Safety Strap, Arm(s), Safety Strap, Thighs, Table, Spinal Device Position PRONE ON T3 TRUMPF FRAME WITIH CHEST, HIP AND THIGH PADS Positioned By CARLA VAZQUEZ MD-TOMEKA, BRIAN BUSTILLO PA, Tom Robin, TERRIE, STEVEN REED, RN, TUYET MOHAN RN Position Verified Positioning Yes Verified by Anesthesia Positioning Yes Verified by Surgeon Last Modified By: STEVEN REED RN 12/29/18 11:38:12 General Comments: AIRO TABLE WITH CHEST AND HIP PADS USED. [facility] IntraOp Patient Positioning Audit 12/29/18 12:19:10 Museum Informatics Specialist: REGGIE Modifier: WASSONSY 1 <*> Procedure 1 <*> Procedure 1 <*> Procedure 1 <*> Procedure Lumbar Fusion Posterior 3 Level 1 <*> Procedure Lumbar Fusion Posterior 3 Level 1 <*> Procedure Lumbar Fusion Posterior 3 Level 1 <*> Procedure Lumbar Fusion Posterior 3 Level 1 <*> Positioning Devices 1 <*> Positioning Devices 1 <*> Positioning Devices 1 <*> Positioning Devices Arm Board, Pillows, Safety Strap, Leg(s), Pad, Arm 1 <*> Positioning Devices Arm Board, Pillows, Safety Strap, Leg(s), Pad, Arm 1 <*> Positioning Devices Arm Board, Pillows, Safety Strap, Leg(s), Pad, Arm 1 <*> Positioning Devices Arm Board, Pillows, Safety Strap, Leg(s), Pad, Arm 1 <*> Device Position 1 <*> Device Position 1 <*> Device Position [facility] IntraOp Sign In Entry 1 Patient, Site, Yes Procedure Identified Surgical Consent Yes Confirmed Relevant Surgical Yes Documents Available Surgical Site N/A Marked by person performing procedure Anesthesia Machine Yes Check Completed Medication Checks Yes Completed Allergies No Airway Difficult Yes Airway/Aspiration Risk Difficult Yes Airway/Aspiration Intervention Equipment Available Blood Loss Risk Yes Blood Loss Yes Intervention Equipment Prepared and Ready Blood Identifiers Yes Verified Per Policy Hypothermia Risk No Warming Measures Yes Taken Last Modified By: STEVEN REED RN 12/29/18 11:38:26 [facility] IntraOp Sign Out Entry 1 RN Confirmation Surgical Yes Procedure(s) Identified Instrument, Sponge Yes and Sharps Counts Correct/Documented Equipment Problems N/A Documented Specimen Labeled Yes Correctly Urinary Catheter N/A Documented in IView Ayoub Patient Yes Recovery Concerns Reviewed with Anesthesia Provider, Surgeon and RN Ayoub Patient Yes Management Concerns Reviewed with Anesthesia Provider, Surgeon and RN Safety Checklist Yes Elements Complete? RN Sign Out STEVEN REED, RN Signature RN Sign Out 12/29/18 12:38:00 Signature Date/Time Plan of Care Outcome - [...] related to extraneous objects Last Modified By: STEVEN REED RN 12/29/18 11:33:25 [facility] IntraOp Sign Out Audit 12/29/18 12:38:55 Museum Informatics Specialist: REGGIE Modifier: WASSONSY <+> 1 RN Sign Out Signature Date/Time [facility] IntraOp Skin Prep Entry 1 Procedure Lumbar Fusion Posterior 3 Level Prescribed Yes Pre-Surgical Prep Completed Prep Area BACK AFTER ALCOHOL AND HIBICLENS PREP PER DR VAZQUEZ Intraop Prep Integumentary WDL Assessment WDL Prep Agents Alcohol, Chlorhexadine gluconate, DuraPrep Prep by TUYET MOHAN RN Hair Removal Methods No hair removal performed Last Modified By: STEVEN REED RN 12/29/18 11:33:04 [facility] IntraOp Skin Prep Audit 12/29/18 12:19:31 Museum Informatics Specialist: WASMICAELASY Modifier: WASSONSY 1 <*> Prep Area BACK 1 <*> Procedure Lumbar Fusion Posterior 3 Level [facility] IntraOp Surgical Procedures Entry 1 Procedure Lumbar Fusion Posterior 3 Level Additional (MIS L5-S1 TLIF) Procedure Description Primary Procedure Yes Primary Surgeon CARLA VAZQUEZ MD-SNU Start 12/29/18 11:20:00 Stop 12/29/18 12:29:00 Anesthesia Type General Specialty SN Neurosurgery Wound Class I - Clean Last Modified By: STEVEN REED RN 12/29/18 11:32:45 [facility] IntraOp Surgical Procedures Audit 12/29/18 12:36:01 Museum Informatics Specialist: WASMICAELASY Modifier: WASSONSY <+> 1 Stop [facility] IntraOp Temp Regulation Devices Entry 1 Temp Regulation Temperature Forced Air Warming Regulation Device device, Warm blankets Temperature 99834 Regulation Device Serial/Unit Number Temperature Upper body Regulation Site Temperature Device 43 C Setting Temperature Lobito, Tom, MUTUAL FUND ACCOUNTANT Regulation Device Applied by Last Modified By: STEVNE REED RN 12/29/18 11:32:42 [facility] IntraOp Temp Regulation Devices Audit 12/29/18 12:19:47 Museum Informatics Specialist: REGGIE Modifier: REGGIE <+> 1 Temperature Regulation Device Serial/Unit Number <+> 1 Temperature Regulation Site <+> 1 Temperature Device Setting [facility] IntraOP Time Out Entry 1 Procedure to be Lumbar Fusion Posterior Performed 3 Level Time Out Time Out Pause Time 12/29/18 11:19:00 All activity Yes suspended (unless life threatening [...] Assures Sterility of instruments, Equipment concerns or issues Essential Imaging Yes Labeled and Displayed Last Modified By: STEVEN REED RN 12/29/18 11:25:43 Case Comments <None> Finalized By: VALENTIN GARCIA Document Signatures Signed By: STEVEN REED RN 12/29/18 12:39 STEVEN REED RN 12/29/18 14:35 VALENTIN GARCIA 12/30/18 11:31 Unfinalized History Date/Time Username Reason for Unfinalizing Freetext Reason for Unfinalizing 12/29/18 14:33 WASSONSY Correct Documentation 12/30/18 11:27 [email or web address] Correct Billing Electronically signed by Juarez [facility] Conversion Package Worker Cerner at 02/16/2023 3:48 PM CDT documented in this encounter Plan of Treatment Upcoming Encounters Date Type Department Care Team (Late st Contact Info) Description 03/10/2025 1:15 PM EDT Office Visit [facility] Cardiology - [place] [address] [place] [address] Tabby Mcallister PA-C [address] [place] [address] documented as of this encounter Visit Diagnoses Not on filedocumented in this encounter Care Teams Director Regulatory Compliance Relationship Specialty Start Date End Date Stacy Moise PA PCP - General 03/02/23 documented as of this encounter
--- OUTSIDE RECORDS SUMMARY | 2024-09-30 17:13 | XMS_ITS | Encounter Summary ---
Author Organization [email or web address] In [employer]atives Address [address] [facility] [place] [address] Care Team Providers Care Associate Professor Of Radiology Name Role Phone Stacy Moise Primary Care Provider [phone] Encounter Details Date Type Department Care Team (Late st Contact Info) Description 12/29/2018 Transcribed Document [facility] [place] Family Medicine [place] [address] ProviderMireya MD [address] [place] [address] [phone] Social History Tobacco Use Types Packs/Day Years Used Date Smoking Tobacco: Never Assessed Sex and Gender Information Value Date Recorded Sex Assigned at Not on file Legal Sex Male 5:25 PM CDT Gender Identity Not on file Sexual Orientation Not on file documented as of this encounter Miscellaneous Notes * Cerner Conversion Note - Historical MD Enrrique - 12/29/2018 5:13 PM ELECTRONIC WARFARE LINGUIST Nursing Discharge Summary Entered On: 12/29/2018 17:15 EST Performed On: 12/29/2018 17:13 EST by PETER FINN RN Discharge Documentation Patient Disposition, General : Discharge Discharge To : Home without planned follow-up Accompanied By, Discharge : Care provider IV Discontinued : Yes Medications Given to Patient : Yes Personal Belongings With Patient : Yes Pt's Own Supply of Medications Returned : Yes Prescriptions Given to Patient : Yes Discharge Instructions Reviewed With, Opportunity For Questions Given : Patient, Care provider Teaching Method : Explanation, Printed materials Teaching Evaluation : Verbalizes understanding PETER FINN RN - 12/29/2018 17:13 EST documented in this encounter Plan of Treatment Upcoming Encounters Date Type Department Care Team (Late st Contact Info) Description 03/10/2025 1:15 PM EDT Office Visit [facility] Cardiology - [place] [address] [place] [address] Tabby Mcallister PA-C 227 [facility] [address] [place] [address] documented as of this encounter Visit Diagnoses Not on filedocumented in this encounter Care Teams Associate Professor Of Radiology Relationship Specialty Start Date End Date Stacy Moise PA PCP - General 03/02/23 documented as of this encounter
--- OUTSIDE RECORDS SUMMARY | 2024-09-30 17:13 | XMS_ITS | Encounter Summary ---
Author Organization [employer] Address [address] [place] [address] Care Team Providers Care Treatment Plant Mechanic Name Role Phone Stacy Moise Primary Care Provider Encounter Details Date Type Department Care Team (Late st Contact Info) Description 12/29/2018 Transcribed Document [facility] [place] Family Medicine [address] [place] [address] ProviderMireya MD [address] [place] [address] [phone] Social History Tobacco Use Types Packs/Day Years Used Date Smoking Tobacco: Never Assessed Sex and Gender Information Value Date Recorded Sex Assigned at Not on file Legal Sex Male 5:25 PM CDT Gender Identity Not on file Sexual Orientation Not on file documented as of this encounter Miscellaneous Notes * Cerner Conversion Note - Historical ProviderMD - 12/29/2018 5:18 PM SCHOOL COUNSELLOR Patient Education Materials Follows: documented in this encounter Plan of Treatment Upcoming Encounters Date Type Department Care Team (Late st Contact Info) Description 03/10/2025 1:15 PM EDT Office Visit [facility] Cardiology - [place] [address] [place] [address] Tabby Mcallister PA-C [address] [facility] [address] [place] [address] documented as of this encounter Visit Diagnoses Not on filedocumented in this encounter Care Teams Treatment Plant Mechanic Relationship Specialty Start Date End Date Stacy Moise PA PCP - General 03/02/23 documented as of this encounter
--- OUTSIDE RECORDS SUMMARY | 2024-09-30 17:13 | XMS_ITS | Encounter Summary ---
Author Organization [employer] Address [address] [place] [id number] Care Team Providers Care Check Grader Name Role Phone Stacy Moise Primary Care Provider [phone] Encounter Details Date Type Department Care Team (Late st Contact Info) Description 12/29/2018 Transcribed Document [facility] [place] [facility] [place] [address] ProviderMireya MD [address] [place] [address] [id number] Social History Tobacco Use Types Packs/Day Years Used Date Smoking Tobacco: Never Assessed Sex and Gender Information Value Date Recorded Sex Assigned at Not on file Legal Sex Male 5:25 PM CDT Gender Identity Not on file Sexual Orientation Not on file documented as of this encounter Miscellaneous Notes * Cerner Conversion Note - Mireya ProviderMD - 12/29/2018 9:11 AM RUG UNDERLAY MACHINE OPERATOR Advance Directive Entered On: 12/29/2018 9:11 EST Performed On: 12/29/2018 9:11 EST by JEROD ZAMARRIPA Advance Directive Patient has Advance Directive *Q : No, patient requests information about Advance Directive Patient Given Information about AD : Yes Advance Directive Comment : Provided written information prior to surgery. Pt. acknowledged as decision maker. Educated pt to request men's furnishings salesperson if/ when ready to complete. JEROD ZAMARRIPA - 12/29/2018 9:11 EST Electronically signed by Juarez [facility] Conversion Evs Attendant Cerner at 02/16/2023 3:45 PM CDT documented in this encounter Plan of Treatment Upcoming Encounters Date Type Department Care Team (Late st Contact Info) Description 03/10/2025 1:15 PM EDT Office Visit [facility] Cardiology - [place] [address] [place] [address] Tabby Mcallister PA-Yuliana [address] [facility] [address] [place] [address] documented as of this encounter Visit Diagnoses Not on filedocumented in this encounter Care Teams Check Grader Relationship Specialty Start Date End Date Stacy Moise PA PCP - General 03/02/23 documented as of this encounter
--- OUTSIDE RECORDS SUMMARY | 2024-09-30 17:13 | XMS_ITS | Encounter Summary ---
Author Organization [facility] [employer] In [employer]atives Address [address] [place] [address] Care Team Providers Care Mangle Press Catcher Name Role Phone Stacy Moise Primary Care Provider [phone] Encounter Details Date Type Department Care Team (Late st Contact Info) Description 12/23/2018 Historic Encounter [facility] [address] [place] [address] ProviderJuan Historical Social History Tobacco [...] [facility] Cardiology - [place] [address] [place] [address] Tabby Mcallister PA-C [address] [place] [address] [address] [place] [address] documented as of this encounter Procedures Procedure Name Priority Date/Time Associated Diagnosis Comments URINALYSIS WITHOUT MICROSCOPIC ([facility] BKR DATA CONV) Routine 12/23/2018 1:04 PM EST documented in this encounter Results * (ABNORMAL) URINALYSIS WITHOUT MICROSCOPIC ([facility] BKR DATA CONV) (12/23/2018 1:04 PM EST) Pathologist [facility] Urine Type U CleanCatch 12/23/2018 4:05 PM EST Urine Color Yellow 12/23/2018 6:17 PM EST Comment: Substances that cause HIGHLY abnormal urine color may affect the accuracy of URINE CHEMISTRY reagent strip results due to colorimetric interference. ??These include visible levels of blood or bilirubin, drugs containing dyes, and some antibiotics such as nitrofurantoin and riboflavin which can cause markedly abnormal urine coloration. Urine Appearance Clear 12/23/19 6:17 PM EST Urine Glucose Dipstick Negative Negative 12/23/2018 6:17 PM EST Urine Bilirubin Dipstick Negative Negative 12/23/2018 6:17 PM EST Urine Ketones Dipstick Negative Negative 12/23/2018 6:17 PM EST Urine Specific [place] 1.018 1.005 - 1.030 12/23/2018 6:17 PM EST Urine Blood Dipstick Negative Negative 12/23/2018 6:17 PM EST Urine pH Dipstick 5.5(L) 6.0 - 8.0 12/23/2018 6:17 PM EST Urine Protein Dipstick Negative Negative 12/23/2018 6:17 PM EST Comment:Use of urine preserv atives may elevate protein results and reduce bilirubin, blood and nitrite results. Urine Urobilinogen Dipstick 0.2 EU/dL 12/23/2018 6:17 PM EST Urine Nitrite Negative Negative 12/23/2018 6:17 PM EST Urine Leukocyte Esterase Negative Negative 12/23/2018 6:17 PM EST Urine 12/23/2018 1:04 PM EST 12/23/2018 6:14 PM EST [facility] Historical Provider URINE ORDERABLES Final Result Performing Organization Address City/State/[facility] Co de Phone Number [facility] [address] [phone] documented in this encounter Visit Diagnoses Not on filedocumented in this encounter Care Teams Mangle Press Catcher Relationship Specialty Start Date End Date Stacy Moise PA PCP - General 03/02/23 documented as of this encounter
--- OUTSIDE RECORDS SUMMARY | 2024-09-30 17:13 | XMS_ITS | Encounter Summary ---
Author Organization [facility] In iatives Address [address] [facility] [place] [address] Care Team Providers Care Joint Filler Name Role Phone Stacy Moise Primary Care Provider [phone] Encounter Details Date Type Department Care Team (Late st Contact Info) Description 12/29/2018 Transcribed Document [facility] Family Medicine [address] [place] [address] ProviderMireya MD [address] [place] [address] [phone] Social History Tobacco Use Types Packs/Day Years Used Date Smoking Tobacco: Never Assessed Sex and Gender Information Value Date Recorded Sex Assigned at Not on file Legal Sex Male 5:25 PM CDT Gender Identity Not on file Sexual Orientation Not on file documented as of this encounter Miscellaneous Notes * Cerner Conversion Note - Mireya Osuna MD - 12/29/2018 11:20 AM PARTS BACK COUNTER MAN [facility] Main OR PostOp Summary Primary Physician: CARLA VAZQUEZ MD-[facility] Finalized Date/Time: 12/29/18 17:58:40 Pt. Name: SCOTTIE CURRAN ERIKA /Sex: 1945 Male Med Rec #: [id number] Physician: CARLA VAZQUEZ MD-[facility] Financial #: [id number] Pt. Type: I Room/Bed: ASA/8 Admit/Disch: 12/29/18 06:57:00 - Institution: [facility] Main OR PostOp Case Times Entry 1 In PACU II 12/29/18 16:50:00 Ready for PACU II 12/29/18 17:58:00 Discharge Discharge from PACU 12/29/18 17:58:00 II Last Modified By: Thu Hernandez RN 12/29/18 17:58:38 [facility] Main OR PostOp Case Times Audit 12/29/18 17:58:38 Dye Room Helper: MAYA Modifier: [email or web address] <+> 1 Ready for PACU II Discharge <+> 1 Discharge from PACU II Finalized By: Thu Hernandez, RN Document Signatures Signed By: Thu Hernandez RN 12/29/18 17:58 Electronically signed by Juarez [facility] Conversion Civil Engineering Professor Cerner at 02/16/2023 3:57 PM CDT documented in this encounter Plan of Treatment Upcoming Encounters Date Type Department Care Team (Late st Contact Info) Description 03/10/2025 1:15 PM EDT Office Visit [facility] Cardiology - [place] [address] [place] [address] Tabby Mcallister PA-C [address] [address] documented as of this encounter Visit Diagnoses Not on filedocumented in this encounter Care Teams Joint Filler Relationship Specialty Start Date End Date Stacy Moise PA PCP - General 03/02/23 documented as of this encounter
--- OUTSIDE RECORDS SUMMARY | 2024-09-30 17:13 | XMS_ITS | Encounter Summary ---
Author Organization [employer] Address [address] [place] [address] Care Team Providers Care Production Support Analyst Name Role Phone Stacy Moise Primary Care Provider [phone] Encounter Details Date Type Department Care Team (Late st Contact Info) Description 12/23/2018 Historic Encounter Psychiatric [address] [place] [address] ProviderJuan Historical Social History Tobacco [...] Visit [facility] Cardiology - [address] [address] Tabby Mcallister PA-C [address] [place] [address] [address] [place] [address] documented as of this encounter Procedures Procedure Name Priority Date/Time Associated Diagnosis Comments CBC (HEMOGRAM ONLY) Routine 12/23/2018 1 2:56 PM EST documented in this encounter Results * (ABNORMAL) CBC (Hemogram only) (12/23/2018 12:56 PM EST) WBC 11.5(H) 3.6 - 9.5 K/uL 12/23/2018 6:16 PM EST RBC 4.70 4.20 - 5.70 Million/uL 12/23/2018 6:16 PM EST Hgb 13.0(L) 13.5 - 17.3 g/dL 12/23/2018 6:16 PM EST Hct 41.3 40.1 - 51.0 % 12/23/2018 6:16 PM EST MCV 87.9 79.0 - 94.8 fL 12/23/2018 6:16 PM EST MCH 27.7 25.6 - 32.2 pg 12/23/2018 6:16 PM EST MCHC 31.5(L) 32.2 - 36.5 Gram/dL 12/23/2018 6:16 PM EST RDW 13.8 11.7 - 14.9 % 12/23/2018 6:16 PM EST Platelet Count 396(H) 163 - 369 K/uL 12/23/2018 6:16 PM EST MPV 9.8 9.4 - 12.4 fL 12/23/2018 6:16 PM EST Slide Review No 12/23/2018 6:18 PM EST Blood 12/23/2018 12:5 6 PM EST 12/23/2018 6:14 PM EST us [facility] Historical Provider LAB BLOOD ORDERABLES Fi nal Result [facility] [address] [phone] documented in this encounter Visit Diagnoses Not on filedocumented in this encounter Care Teams Production Support Analyst Relationship Specialty Start Date End Date Stacy Moise PA PCP - General 03/02/23 documented as of this encounter
--- OUTSIDE RECORDS SUMMARY | 2024-09-30 17:13 | XMS_ITS | Encounter Summary ---
Author Organization [employer] Address [address] [place] [address] Care Team Providers Care Unit Nurse Name Role Phone Stacy Moise Primary Care Provider [phone] Encounter Details Date Type Department Care Team (Late st Contact Info) Description 12/29/2018 Transcribed Document [facility] [address] [facility] [address] [place] [address] Leroy Wagner MD [address] [place] [address] [address] [place] [address] Social History Tobacco Use Types Packs/Day Years Used Date Smoking Tobacco: Never Assessed Sex and Gender Information Value Date Recorded Sex Assigned at Not on file Legal Sex Male 5:25 PM CDT Gender Identity Not on file Sexual Orientation Not on file documented as of this encounter Miscellaneous Notes * Cerner Conversion Note - Leroy Wagner MD - 12/29/2018 10:46 AM EST Patient: SCOTTIE CURRAN Age: 73 years Sex: Male : 1945 Associated Diagnoses: None Author: PETRONA STONE APRN Chief Complaint back, LLE pain Review of Systems ROS reviewed as documented in chart no change since last seen by surgeon Health Status Allergies: Allergic Reactions (Selected) No Known Medication Allergies, Allergies (1) Active Reaction No Known Medication Allergies None Documented Current medications: (Selected) Inpatient Medications Ordered Ancef: 2 Gram, 50 mL, 100 mL/Hr, IV Piggyback, PREOP Chloraseptic 6 mg-10 mg mucous membrane lozenge: 1 Lozenge, Oral, Q2H, PRN: Sore Throat Colace: 100 mg, Oral, Daily Dulcolax Laxative: 10 mg, Rectal, BID, PRN: Constipation Lactated Ringers Injection intravenous solution 1,000 mL: 20 mL/Hr, IntraVENous Milk of Magnesia 8% oral suspension: 30 mL, Oral, TID, PRN: Constipation MiraLax: 17 Gram, Oral, Daily Phenergan: 12.5 mg, IV Push, Q6H, PRN: Nausea Zofran: 4 mg, IV Push, Q4H, PRN: Nausea cloNIDine: 0.2 mg, Oral, Q4H, PRN: Hypertension hydrALAZINE: 10 mg, IV Push, Q6H, PRN: Hypertension lidocaine 1% injectable solution: 0.5 mL, IntraDermal, 1-Time, PRN: Other (See Comment) simethicone: 80 mg, Oral, Q6H, PRN: Gas triamcinolone acetonide 40 mg/mL injectable suspension 40 mg + ketorolac 15 mg + bupivacaine 0.25%...: 40 mg, 1 mL, 0 mL/Hr, Miscellaneous, 1-Time Documented Medications Documented Aspir 81: 81 mg, Oral, Daily, 0 Refill(s) Bystolic 10 mg oral tablet: 1 Tab, Oral, Daily, 0 Refill(s) Crestor 10 mg oral tablet: 1 Tab, Oral, EveryOtherDay, 0 Refill(s) Flonase: 2 [place], Nasal, EveryOtherDay, 0 Refill(s) Konsyl: Oral, EveryOtherDay, [...] = 1 Tab, Oral, EveryOtherDay Flonase 2 [place], Nasal, EveryOtherDay furosemide 20 mg oral tablet [...] 10 mg, PRN, Oral, Daily , Medications (14) Active Scheduled: (4) ceFAZolin/D5w 2 Gram 50 mL, IV Piggyback, PREOP docusate sodium 100 mg cap 100 mg 1 Cap, Oral, Daily polyethylene glycol 3350 pwd 17 g pkt 17 Gram 1 Packet, Oral, Daily triamcinolone acet 40 mg + ketorolac 15 mg + bupivacaine 0.25% 30 mL + syringe 1 Each 40 mg 1 mL, Miscellaneous, 1-Time Continuous: (1) lactated ringers 1,000 mL 1,000 mL, IntraVENous, 20 mL/Hr PRN: (9) benzocaine-menthol 6 mg audie 1 Lozenge, Oral, Q2H bisacodyl 10 mg supp 10 mg 1 Supp, Rectal, BID cloNIDine 0.2 mg tab 0.2 mg 1 Tab, Oral, Q4H hydrALAZINE 20 mg/1 mL inj 10 mg 0.5 mL, IV Push, Q6H lidocaine 1% inj 10 mL 0.5 mL, IntraDermal, 1-Time magnesium hydroxide 8% liq 30 mL 30 mL, Oral, TID ondansetron 4 mg/2 mL inj 4 mg 2 mL, IV Push, Q4H promethazine 25 mg/1 mL inj 12.5 mg 0.5 mL, IV Push, Q6H simethicone 80 mg chew tab 80 mg 1 Tab, Oral, Q6H Problem list: All Problems Stented coronary artery / SNOMED CT 4191221852 / Confirmed Renal calculus///HX / SNOMED CT 436176943 / Confirmed Prostatitis// / SNOMED CT 55841843 / Confirmed Peripheral vascular disease / SNOMED CT 2944997529 / Confirmed HTN (hypertension) / SNOMED CT 7579711212 / Confirmed High cholesterol / SNOMED CT 87674930 / Confirmed Left hip pain//left leg / SNOMED CT 65919287 / Confirmed Murmur / SNOMED CT 871146489 / Confirmed Hard of hearing / SNOMED CT 559099172 / Confirmed GERD - Gastro-esophageal reflux disease / SNOMED CT 1550799970 / Confirmed Diverticulitis///HX / SNOMED CT 560156206 / Confirmed Disorder of prostate / SNOMED CT 56431733 / Confirmed CAD (coronary artery disease) / SNOMED CT 98210846 / Confirmed Cataract///extraction / SNOMED CT 288011348 / Confirmed Back pain / SNOMED CT 4127436647 / Confirmed At risk for sleep apnea / IMO 23449842 / Confirmed Arthritis / SNOMED CT 1442963 / Confirmed Aortic valve disease / SNOMED CT 79872903 / Confirmed Angina//last seversl years / SNOMED CT 394247898 / Confirmed, Active Problems (19) Angina//last seversl years Aortic valve disease Arthritis At risk for sleep apnea Back pain with LLE radiculopathy CAD (coronary artery disease) Cataract///extraction Disorder of prostate Diverticulitis///HX GERD - Gastro-esophageal reflux disease Hard of hearing High cholesterol HTN (hypertension) Left hip pain//left leg Murmur Peripheral vascular disease Prostatitis// Renal calculus///HX Stented coronary artery Histories Past Medical History: Resolved Gallbladder disease (842804526): Resolved. Family History: No family history items have been selected or recorded. Procedure history: heart cath in 2017 at 72 Years. cardiac stents. left lower extremity vascular stent. hand surgery. S/P cholecystectomy ([id number]). colon resection. Cataract surgery ([id number]). Colonoscopy ([id number]). renal stent. right leg balloon. Social History Social & Psychosocial Habits Alcohol 11/18/2016 Alcohol Use History, Social Habits Yes Alcohol Use Frequency Rarely Home/Environment 07/21/2014 Lives with: Spouse Living situation: Home/Independent Substance Abuse 12/23/2018 Recreational Drug Use History No Recreational Drug Use Last 12 Months No Tobacco 11/18/2016 Smoking Status Current every day smoker Years of Tobacco Use 55 Packs/Tins Daily 1 . Physical Examination VS/Measurements Vital Signs/Vital Measures 12/29/2018 8:52 EST Temperature Source Temporal artery scanning Temperature Mode Fahrenheit Temperature, Fahrenheit 98 Deg F Clinical Temperature, C 36.7 Deg C Peripheral Pulse Rate 97 bpm Systolic Blood Pressure 143 mmHg HI Diastolic Blood Pressure 75 mmHg , Vitals Signs (last 24 hrs) Last Charted [...] (DEC 29 08:52) 75 (DEC 29 08:52) General: Alert and oriented, No acute distress. Eye: Pupils are equal, round and reactive to light, Extraocular movements are intact, glasses. HENT: Normocephalic, [place]. Neck: Supple, Non-tender. Respiratory: Lungs are clear to auscultation, Respirations are non-labored. Cardiovascular: Normal rate, Regular rhythm, No murmur, No gallop, No edema. Gastrointestinal: Soft, Non-tender. Genitourinary: No costovertebral angle tenderness. Lymphatics: No lymphadenopathy neck, axilla, groin. Musculoskeletal: Normal strength, painful ROM of back. Integumentary: Warm, Dry, [place]. Neurologic: Alert, Oriented. Psychiatric: Cooperative, Appropriate mood & affect. Review / Management Results review: Labs (Last four charted values) WBC H 11.5 (DEC 23) HB L 13.0 (DEC 23) HCT 41.3 (DEC 23) Plt H 396 (DEC 23) Na 142 (DEC 23) K 4.2 (DEC 23) Cl 111 (DEC 23) CO2 25 (DEC 23) BUN 20 (DEC 23) Cr 1.00 (DEC 23) Glu R H 114 (DEC 23) Ca 9.0 (DEC 23) , Lab results: 12/29/2018 9:09 EST Glucose POC2 140 mg/dL HI . Impression and Plan Condition: Stable. documented in this encounter Plan of Treatment Upcoming Encounters Date Type Department Care Team (Late st Contact Info) Description 03/10/2025 1:15 PM EDT Office Visit [facility] Cardiology - [place] [address] [place] [address] Tabby Mcallister PA-C [address] [address] documented as of this encounter Visit Diagnoses Not on filedocumented in this encounter Care Teams Unit Nurse Relationship Specialty Start Date End Date Stacy Moise PA PCP - General 03/02/23 documented as of this encounter
[2024-09-30 17:16] LABS: Coronavirus 19, PCR Not Detected (NotDetected); Influenza A, PCR Not Detected (NotDetected); Influenza B, PCR Not Detected (NotDetected)
== END 2024-09-30 23:59 | disposition home or self-care (01) ==
LOC: LAB.DROPOF 17:06
PROVIDERS: PCP Family Medicine; Visit Provider Family Medicine
DX: R06.02 Shortness of breath (principal)
CPT/HCPCS: 87636

== ENCOUNTER 2025-03-31 13:03 | Outpatient (CLI) | payer MEDICARE, OTHER, SELFPAY ==
--- OUTSIDE RECORDS SUMMARY | 2025-03-31 13:06 | XMS_ITS | Continuity of Care Document ---
Author Organization [facility], [facility] Address [address] [address] Care Team Providers Care Modular Set Crew Member Name Role Phone MALGORZATA CLEMENT Svp Chief Marketing Officer SUDHIR PAYTON Primary Care Provider Assessment No assessment recorded. Plan of Treatment Reminders Order Date Submit Date Provider Last Modified By Organization Details Last Modified Time Details Appointments DERMATOL OGY VISIT 2024 01:30P M LEYDI HAMMOND ACCOUNTANT CLERK Not available Not available Not available NEUROLOG Y RECHECK 2024 01:30P M DEMUND NATH PA-C Not available Not available Not available LEVEL 2 2024 10:45A M MALGORZATA CLEMENT MD Not available Not available Not available RECHECK 2024 01:00P M JYOTSNA MORRISON MD Not available Not available Not available RECHECK 2024 02:00P M SUDHIR PAYTON PA-C Not available Not available Not available DERMATOL OGY VISIT 2025 01:30P M LEYDI HAMMOND APRN Not available Not available Not available Lab None recorded . Referral None recorded . Procedures None recorded . Surgeries None recorded . Imaging None recorded . Medication Orders None recorded . Patient TargetsNo targets recorded. Patient InstructionsNo instructions recorded. Reason for Referral None Reported. Problems Name Problem SNOMED Code Status Onset Date Resolution Date Notes Provider Name and Address Organization Details Recorded Time Peripher al vascular disease 476071078 Active 2016 Yamila Peters [facility] 3 14:11:37 Hyperlip idemia 12713590 Active [address] 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 2017 [facility] 4 13:46:28 After-ca taract of bilatera l eyes 86055665835 611154 Completed 201802/14/2021 MALGORZATA CLEMENT MD [address] [place] [address], [address], [facility] 1 10:40:05 Presbyop ia 50042754 Active 2018 MALGORZATA CLEMENT MD [address] [place] [address], [address], [facility] 4 11:05:39 Hypothyr oidism 40891037 Active 2019 [facility] 4 13:46:29 Acquired arteriov enous malforma tion 29621872868 08 Active 2019 noted on egd 07/21dr margarito Yamila [facility] 4 13:46:29 Cerebrov ascular disease 35548740 Active 2019 [facility] 4 13:46:29 Antiplat elet agent therapy Active 2019 [facility] 4 13:46:29 Coronary arterios clerosis 06146188 Active 2020 [facility] 3 14:11:37 Gastroes ophageal reflux disease without esophagi tis 316878096 Active 2021 [facility] 4 13:46:29 Anemia 579995757 Active 2021 [facility] 4 13:46:29 Secondar y cataract 329515172 Active 2021 MALGORZATA CLEMENT MD [address] [place] [address], [phone], [facility] 4 11:05:39 History of transien t ischemic attack 561017705 Active 2021 [facility] 4 13:46:28 Vitamin B12 deficien cy (non anemic) 59931393 Active 2021 [facility] 4 13:46:29 Atherosc lerosis of aorta 80699300 Active [address] scan 2 [facility] 4 13:46:29 Vitamin D deficien cy 48564046 Active 2022 Yamila Peters [facility] 4 13:46:29 Nicotine dependen ce 00856315 Active 2022 SUDHIR PAYTON PA-C [address] [place] [address], [address], [facility] 5 15:37:21 Posterio r vitreous detachme nt 365854327 Active 2022 MALGORZATA CLEMENT MD [address] [place] [address], [address], [facility] 4 11:05:39 Atypical facial pain 27998200 Active 2022 Yamila Peters [facility] 4 13:46:29 Chronic bullous emphysem a 421292153 Active 2022 Yamila Peters [facility] 4 13:46:28 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 818441739 Active 2022 [facility] 4 13:46:29 Gynecoma stia 5672037 Active 2022 Yamila Peters [facility] 4 13:46:29 Excess skin of eyelid 498057886 Active From Automate d Load;Pro vider: Malgorzata Clement;St atus: Active MALGORZATA CLEMENT MD [address] [place] [address], [address] [place] [address], [facility] 4 11:05:56 Chronic kidney disease stage 3A 774767865 Active SUDHIR PAYTON PA-C [address] [place] [address], [address] [place] [address], [facility] 5 15:36:58 Excess skin of eyelid 445235061 Completed 201409/01/2018 From Automate d Load;Pro vider: Malgorzata Clement;St atus: Active MALGORZATA CLEMENT MD [address] [place] [address], [address] [place] [address] 1, [facility] 4 11:05:56 Tear film insuffic iency 38895720 Completed 201409/02/2019 From Automate d Load;Pro vider: Malgorzata Clement;St atus: Active MALGORZATA CLEMENT MD [address] [place] [address], [address] [place] [address] 1, [facility] 9 11:26:01 Allergic rhinitis 35207737 Active 2015 From Automate d Load;Pro vider: Duarte Meza III; Status: Active Yamila Peters [facility] 4 13:46:29 Non-alco holic fatty liver 777156653 Active 2015 From Automate d Load;Pro vider: Kamar Castillo;Sta tus: [facility] 4 13:46:28 Hyperten sive disorder 08547957 Active 2015 nl ht cat Yamila Peters [facility] 3 14:11:37 Chronic prostati tis 98418651 Active 2015 From Automate d Load;Pro vider: Gladys Rowell tatus: [facility] 4 13:46:28 Lower urinary tract symptoms due to benign prostati c hypertro phy 30330529394 101 Active 2015 From Automate d Load;Pro vider: Alphonse Rowell;Gil tatus: [facility] 13:46:29 Deviated nasal septum 900512389 Active 2015 From Automate d Load;Pro vider: Duarte Meza III; Status: [facility] 13:46:28 Notes:: Depression Screening* Date:02/04/2016 Some problems listed in Document: #[id number] could not be added to this patient's chart. Please review this document and add these problems to the patient's chart manually as needed. Problem Notes None recorded. Procedures Surgical History Date Name Laterality Status Provider Name and Address Organization Details Recorded Time 025 Lumbar MBB bilateral 2 level - Reggie completed JASON PAREDES MD [address] [place] [address], [phone], [facility] 03/28/2025 13:22:42 025 Lumbar MBB bilateral 2 level - Reggie completed JASON PAREDES MD [address] [place] [address], [address], [facility] 03/13/2025 16:12:13 025 Destruction Premalignant Lesion(s) completed Radha Swartz [facility] 12/06/2024 13:58:39 024 Destruction Premalignant Lesion(s) completed Rachel Wilkins [facility] 12/02/2023 14:18:49 023 Destruction Premalignant Lesion(s) completed Bonny Ortiz [facility] 05/26/2023 12:31:24 023 Destruction [place] Lesion; trunk, arm, leg completed [facility] 02/23/2023 16:02:18 023 Biopsy Skin Lesion; Tangential completed LEYDI HAMMOND, ACCOUNTANT CLERK [address] [place], [address], [facility] 02/17/2023 11:45:48 023 Destruction Premalignant Lesion(s) completed [facility] 02/17/2023 10:51:42 023 Ophthalmoscopy, Ext Retinal completed TAYA ALEXANDRA MD [address] [place], [address], [facility] 12/04/2022 14:15:48 022 EKG completed KOFI MANRIQUEZ PA-C [address] [place], [address], [facility] 09/22/2022 15:55:27 022 Destruction [place] Lesion; trunk, arm, leg completed [facility] 09/17/2022 07:34:15 022 Biopsy Skin Lesion; Tangential completed [facility] 09/10/2022 14:04:49 022 Destruction Premalignant Lesion(s) completed [facility] 09/10/2022 14:04:56 022 EKG completed KOFI MANRIQUEZ PA-C [address] [place], [address], [facility] 03/25/2022 15:11:37 022 Stress Test - Nuclear Lexiscan completed ROBBIN CANO MD [address] [place], [address], [facility] 12/04/2021 14:51:30 022 EKG completed KOFI MANRIQUEZ PA-C [address] [place], [address], [facility] 11/06/2021 11:26:36 021 Post Void Residual; Ultrasound completed Sofiya Conner [facility] 07/22/2021 10:51:02 021 Electromyography (EMG) with Nerve Conduction Study (NCV) completed Anh Underwood (Camille) [facility] 04/10/2021 13:07:07 021 [place], [address], [facility] 03/06/2021 14:14:04 020 [place], [address], [facility] 10/12/2020 12:34:02 020 Post Void Residual; Ultrasound completed Silva Wright [facility] 06/07/2020 13:22:54 020 [place], [address], [facility] 04/10/2020 16:06:08 020 Cardiac Catheterization completed Sharonda Singer [facility] 04/10/2020 15:13:22 020 EKG completed NILAM PENA MD [address] [place], [address], [facility] 03/07/2020 10:28:06 020 ANTERIOR CERVICAL DISCECTOMY AND FUSION, LEVEL SPECIFIED, WITH HARDWARE (SURG) completed Rowena Monsalve [facility] 01/20/2020 10:24:10 019 Echocardiogram [place], [address], [facility] 06/21/2019 12:22:25 019 Diabetic Foot Exam [place], [address], [facility] 06/08/2019 16:52:11 019 Interpretation completed BRIAN BUSTILLO PA-C [address] [place], [address], [facility] 04/25/2019 11:30:21 019 Post Void Residual; Ultrasound completed Kaci [facility] 04/07/2019 10:36:56 019 EKG completed KOFI MANRIQUEZ PA-C [address] [place], [address], [facility] 02/03/2019 13:21:00 019 Post Void Residual; Ultrasound completed Kaci [facility] 01/27/2019 13:40:17 019 TRANSFORAMINAL INTERBODY LUMBAR FUSION, LEVEL SPECIFIED, WITH HARDWARE (SURG) completed Nae Katz [facility] 01/03/2019 08:44:54 019 Post Void Residual; Ultrasound completed Kaci [facility] 12/21/2018 13:34:52 019 EKG completed KOFI MANRIQUEZ PA-C [address] [place], [address], [facility] 12/13/2018 12:11:56 019 Electromyography (EMG) with Nerve Conduction Study (NCV) completed Anh Underwood (Camille) [facility] 11/08/2018 08:59:12 018 VAS - Art Dup - Lower Extremity completed NILAM PENA MD [address] [place], [address], [facility] 09/14/2018 15:50:46 018 EKG completed KOFI MANRIQUEZ PA-C [address] [place], [address], [facility] 08/03/2018 13:38:43 018 Injection Joint/Bursa, Major completed [place], [address], [facility] 07/23/2018 16:00:53 018 Injection Joint/Bursa, Major completed MELVIN MASON [address] [place], [address], [facility] 06/29/2018 14:52:16 018 Electromyography (EMG) with Nerve Conduction Study (NCV) completed Anh Underwood (Camille) [facility] 05/17/2018 10:51:39 018 Cardiac Catheterization completed Tiarra Brown [facility] 05/21/2018 14:39:13 018 Post Void Residual; Ultrasound completed Ginger Gallegos [facility] 04/06/2018 10:50:44 018 VAS - Art Dup - Lower Extremity completed DEZ BOO MD [address] [place], [address], [facility] 03/31/2018 16:22:18 018 Diabetic Foot Exam completed BLANCA LUQUE PA-C [address] [place], [address], [facility] 02/23/2018 23:34:30 018 VAS - Carotid Duplex completed NILAM PENA MD [address] [place], [address], [facility] 02/17/2018 12:03:58 018 EKG completed KOFI MANRIQUEZ PA-C [address] [place], [address], [facility] 02/03/2018 13:58:15 017 EKG completed KOFI MANRIQUEZ PA-C [address] [place], [address], [facility] 08/05/2017 14:27:37 017 EKG completed KOFI MANRIQUEZ PA-C [address] [place], [address], [facility] 05/25/2017 12:44:35 017 Post Void Residual; Ultrasound completed Alicia Peña [facility] 03/19/2017 13:27:57 017 EKG completed KOFI MANRIQUEZ PA-C [address], [address], [facility] 01/26/2017 11:47:44 017 CATHETER PLACEMENT FOR CORONARY ANGIOGRAPHY WITH LEFT HEART CATHETERIZATION INCLUDING INTRAPROCEDURAL INJECTION(S) FOR LEFT VENTRICULOGRAPHY WHEN PERFORMED (SURG) completed Maday Helmburg [facility] 11/24/2016 07:31:58 016 Blepharoplasty completed Loree Desai [facility] 10/24/2016 10:00:43 015 Cataract (right) removal with iol completed Robinirena Morrison [facility] 08/28/2017 11:01:15 015 Cataract (left) removal with iol completed Robin [facility] 08/28/2017 11:01:05 Other completed BEV ALEXANDRA JR, MD [address] [place], [address], [facility] 04/06/2018 18:18:31 Cholecystectomy w/cholang completed [facility] 08/28/2017 11:01:25 Imaging Results None recorded. Procedure Notes None recorded. Medical Equipment None Reported. Allergies No known drug allergies Medications Name Sig Start Date Stop Date Status Note LastModified by Organization Details LastModified Time Compound Rx Alternati ves Neuropath ic Pain Cream Apply 1 to 2 g (1-2 pumps) to affected area 3-4 times daily as needed for pain 02/27 completed Danny was reviewed and is appropri ate Not Available Not Available Not Available losartan 50 mg tablet Take 1 tablet every day by oral route. 03/21 completed Not Available Not Available Not Available cyclobenz aprine 10 mg tablet Take 1 tablet 3 times a day by oral route as needed. 06/08 completed Not Available Not Available Not Available atorvasta tin 40 mg tablet TAKE ONE TABLET BY MOUTH ONCE A DAY 2022 active Not Available Not Available Not Avai lable metformin 500 mg tablet Take 1 tablet twice a day by oral route before meals. 05/01 completed diarrhea Not Available Not Available Not Available Percocet 7.5 mg-325 mg tablet Take 1 tablet every 6 hours by oral route as needed. 02/03 completed Not Available Not Available Not Available Colace 100 mg capsule Two times a day 11/18 completed Frequenc y: bid;Medi cation Descript ion: docusate ; Dosage:1 ; Route:or al; refills: 0; Quantity :60 capsule Not Available Not Available Not Available clonidine HCl 0.1 mg tablet Take one tablet each day as needed for systolic BP of >160 01/07 completed Not Available Not Available Not Available cefuroxim e axetil 250 mg tablet Take 1 tablet every 12 hours by oral route for 10 days. 01/27 completed Not Available Not Available Not Available atorvasta tin 20 mg tablet Take 1 tablet every day by oral route. 04/10 completed changed at ( was taking Crestor) [facility] at recent visit- rx was written for 40 mg per day- pt has been taking 20 mg Not Available Not Available Not Available lisinopri l 20 mg-hydroc hlorothia zide 12.5 mg tablet Take 1 tablet twice a day by oral route. 04/06 completed 1 at night 03/23/18 Not Available Not Available Not Available benzonata te 200 mg capsule Take 1 capsule 3 times a day by oral route as needed, for Cough. 02/27 completed Not Available Not Available Not Available lisinopri l 20 mg tablet Take 1 tablet twice a day by oral route. 11/06 completed Not Available Not Available Not Available Medrol (Wily) 4 mg tablets in a dose pack Take 1 dose pk by oral route. 12/17 completed Not Available Not Available Not Available isosorbid e mononitra te ER 30 mg tablet,ex tended release 24 hr Take 1 tablet every day by oral route as directed . 12/24 completed Not Available Not Available Not Available Nexium 40 mg capsule,d elayed release Daily 05/21 completed Frequenc y: daily;Al t Frequenc y: as direct.; Medicati on Descript ion: esomepra zole; Dosage:1 ; Route:or al; refills: 3; Quantity :90 delayed release capsule Not Available Not Available Not Available hydralazi ne 25 mg tablet Take 1 tablet twice a day by oral route. 03/27 completed Not Available Not Available Not Available Zyrtec 10 mg tablet Take 1 tablet every day by oral route for 30 days. 09/05 completed Not Available Not Available Not Available Plavix 75 mg tablet Take 1 tablet every day by oral route. 2021 active added at [place] Not Available Not Available Not Available spironola ctone 25 mg tablet Take 1 tablet every day by oral route. 2022 active Not Available Not Available Not Avai lable Hyoscyami ne Sulfate SL 0.125 mg sublingua l tablet before meals and at bedtime 05/25 completed Frequenc y: ac and hs;Medic ation Descript ion: hyoscyam ine; Dosage:1 ; Route:chiang blingual ; refills: 0 Not Available Not Available Not Available levothyro xine 25 mcg tablet TAKE ONE TABLET BY MOUTH ONCE A DAY 2024 active Not Available Not Available Not Avai lable Efudex 5 % topical cream APPLY A SUFFICIE NT AMOUNT TO COVER THE LESIONS IN THE AFFECTED PRECANCE R AREA(S) ON LATERAL CHEEKS BY TOPICAL ROUTE 1 TIME PER DAY X 3 WEEKS 02/27 completed Not Available Not Available Not Available isosorbid e dinitrate 30 mg tablet Take 1 tablet twice a day by oral route. active Not Available Not Available No t Available isosorbid e mononitra te ER 60 mg tablet,ex tended release 24 hr Take 1 tablet every day by oral route as directed . 12/24 completed Not Available Not Available Not Available potassium chloride ER 20 mEq tablet,ex tended release(p art/cryst ) TAKE 1 TABLET BY MOUTH TWICE DAILY 11/26 completed Not Available Not Available Not Available tamsulosi n 0.4 mg capsule Take 1 capsule every day by oral route. 02/27 completed Not Available Not Available Not Available amlodipin e 10 mg tablet TAKE ONE TABLET BY MOUTH EVERY DAY 2022 active Not Available Not Available Not Avai lable Lasix 20 mg tablet Take 1 tablet every day by oral route. 09/05 completed Not Available Not Available Not Available cyanocoba jose (vit B-12) 1,000 mcg/mL injection solution inject 1 mL ONCE A MONTH 06/17 completed Not Available Not Available Not Available Cipro 500 mg tablet Take 1 tablet every 12 hours by oral route. 01/27 completed Not Available Not Available Not Available buspirone 10 mg tablet Two times a day 08/05 completed Frequenc y: bid;Medi cation Descript ion: buspiron e; Dosage:1 ; Route:or al; refills: 3; Quantity :180 tablet Not Available Not Available Not Available clotrimaz ole-betam ethasone 1 %-0.05 % topical cream APPLY TO THE AFFECTED AND SURROUND ING AREAS OF SKIN BY TOPICAL ROUTE 2 TIMES PER DAY IN THE MORNING AND EVENING FOR 2 WEEKS 03/07 completed Not Available Not Available Not Available lisinopri l 10 mg tablet Take 1 tablet every day by oral route. 12/12 completed Not Available Not Available Not Available losartan 25 mg tablet Take 1 tablet every day by oral route. 08/19 completed Not Available Not Available Not Available nicotine 21 mg/24 hr daily transderm al patch Apply 1 patch every day by transder mal route. 03/19 completed Not Available Not Available Not Available BD Luer-Sharmin Syringe 3 mL 25 gauge x 1 USE WITH B12 INJECTIO N 2021 active Not Available Not Available Not Avai lable nitroglyc nathanael 0.4 mg sublingua l tablet As Directed 2022 active Not Available Not Available Not Avai lable Maxitrol 3.5 mg/g-10,0 00 unit/g-0. 1 % eye ointment apply small amount to lesion right lower lid bid 07/27 completed Not Available Not Available Not Available hydralazi ne 50 mg tablet Take 1 tablet twice a day by oral route. 03/27 completed Not Available Not Available Not Available aspirin 81 mg tablet on hold 08/12 completed Duration : 30 days;Brandon quency: daily;Me dication Descript ion: aspirin; Dosage:1 ; Route:or al; refills: 0; Quantity :30 tablet Not Available Not Available Not Available gabapenti n 100 mg capsule Take 2 capsules twice a day by oral route for 90 days. 2024 active Not Available Not Available Not Avai lable Lopid 600 mg tablet Take by oral route. active Not Available Not Available No t Available Morgan 7.5 mg-325 mg tablet Take 1 tablet every 6 hours by oral route. 03/07 completed Not Available Not Available Not Available ipratropi um bromide 42 mcg (0.06 %) nasal spray 2 sprays per nostril tid 2023 active takes as needed Not Available Not Available Not Available losartan 100 mg tablet Take 1 tablet every day by oral route. active Not Available Not Available No t Available finasteri de 5 mg tablet TAKE ONE TABLET BY MOUTH ONCE A DAY 11/05 completed Not Available Not Available Not Available diazepam 5 mg tablet Take 1 tablet as needed by oral route. 02/27 completed [facility]: [id number] 0-61 Not Available Not Available Not Available simethico ne 80 mg chewable tablet Two times a day 11/18 completed Frequenc y: bid;Medi cation Descript ion: simethic one; Dosage:3 ; Route:or al; refills: 0 Not Available Not Available Not Available esomepraz ole magnesium 20 mg capsule,d elayed release Take 1 capsule every day by oral route in the morning for 90 days. 2023 active Not Available Not Available Not Avai lable Bactrim DS 800 mg-160 mg tablet Take 1 tablet every 12 hours by oral route for 10 days. 01/27 completed Not Available Not Available Not Available dutasteri de 0.5 mg capsule Take 1 capsule every day by oral route for 90 days. 2023 active Not Available Not Available Not Avai lable cyclobenz aprine 5 mg tablet Take 1 tablet 3 times a day by oral route as needed. 01/07 completed Not Available Not Available Not Available rosuvasta tin 10 mg tablet TAKE 1 TABLET BY MOUTH EVERY DAY AT BEDTIME 03/19 completed 1 qod Not Available Not Available Not Available psyllium qod 01/07 completed Not Available Not Available Not Available iron otc qd 03/07 completed Not Available Not Available Not Available Aspir-81 11/06 completed Not Available Not Available Not Available furosemid e 20 mg 02/23 completed Not Available Not Available Not Available isosorbid e 03/27 completed Not Available Not Available Not Available Konsyl Fiber 02/23 completed Medicati on Descript ion: psyllium ; Route:or al; refills: 0 Not Available Not Available Not Available Miralax Daily 02/23 completed Instruct ions: 17gm in 8oz fluids QTY QS;Frequ ency: daily;Me dication Descript ion: polyethy shanae glycol 3350; Dosage:a s directed ; Route:or al; refills: 0; Quantity :1 powder for reconsti tution Not Available Not Available Not Available esomepraz ole magnesium 12/15 completed Not Available Not Available Not Available Januvia 100 mg tablet TAKE 1 TABLET BY MOUTH DAILY 2024 active Not Available Not Available Not Avai lable Golytely 236 gram-22.7 4 gram-6.74 gram-5.86 gram oral solution Take as directed 02/27 completed not taking (12/15/19) Not Available Not Available Not Available Bystolic 10 mg tablet Take by oral route. active Not Available Not Available No t Available Bystolic 06/08 completed bystolic 10 mg samples given to pt -2 boxes 02/03/19. lot# [id number] exp 02/19 Not Available Not Available Not Available Align (B. is) 02/27 completed not taking (12/15/19) Not Available Not Available Not Available Effient 10 mg tablet Daily 08/28 completed Instruct ions: Take one each day;Freq uency: daily;Me dication Descript ion: prasugre l; Dosage:1 ; Route:or al; refills: 12; Quantity :30 tablet Not Available Not Available Not Available levothyro xine 25 mcg capsule Take 0.5 capsules every day by oral route. 04/10 completed added at [facility] Not Available Not Available Not Available B12 OTC qd 06/17 completed Not Available Not Available Not Available Suprep Bowel Prep Kit 17.5 gram-3.13 gram-1.6 gram oral solution Take 177 mL by oral route as directed . 08/09 completed Not Available Not Available Not Available Systane (PF) active Not Available Not Available Not Available potassium chloride ER 20 mEq tablet,ex tended release one tablet daily 02/18 completed Not Available Not Available Not Available Flonase Allergy Relief 50 mcg/actua tion nasal spray,[place] [employer] [place] 2 sprays every day by intranas al route for 30 days. 09/05 completed Not Available Not Available Not Available Vitamin B12 as directed 06/17 completed Not Available Not Available Not Available Vitals None Recorded Social History Question Answer Notes LastModified by Organizat ion Details LastModified Time Tobacco Smoking Status Current Every Day Smoker Loree Desai [facility], [facility] 10/24/2016 10:00:13 How Much Tobacco Do You Chew? None [email or web address] Information not available 11/10/2018 Live Alone Or With Others? With Others Information not available 05/25/2017 Marital Status Joan [email or web address] Informatio n not available 06/13/2020 What Was The Date Of Your Most Recent Tobacco Screening? 02/27/2025 [email or web address] Information not available 02/27/2025 How Many Children Do You Have? 0 [email or web address] Information not available 09/23/2021 What Is Your Relationship Status? [email or web address] Information not available 09/23/2021 How Much Tobacco Do You Smoke? 0.25 PPD [email or web address] Information not available 06/11/2020 Has Tobacco Cessation Counseling Been Provided? Yes Information not available 08/31/2017 On What Date Was Tobacco Cessation Counseling Provided? 01/08/2024 [email or web address] Information not available 01/08/2024 How Many Years Have You Smoked Tobacco? 50 Information not available 05/25/2017 Have You Recently Traveled Abroad? No Information not available 09/23/2021 Sex: Unknown Functional Status Question Answer Note LastModified by Organizat ion Details LastModified Time What is your level of alcohol consumption? Occasional social Information not available 02/23/2018 Do you or have you ever used smokeless tobacco? Never used smokeless tobacco [email or web address] Information not available 06/08/2019 What is your occupation? retired Information not available 02/23/2018 Do you or have you ever used e-cigarettes or vape? Never used electronic cigarettes Information not available 06/08/2019 Mental Status None recorded. Family History Relationship Description Onset Age of this Age Resolved Age Notes LastModified by Organization Details LastModified Time Brother Cataract Not availab le 11/25/2016 16:04:10 Brother Hypertensive disorder [email or web address] Not available 2016 16:04:44 Brother Myocardial infarction [email or web address] Not available 11/25 16:05:22 Brother Family history of stroke [email or web address] Not available 2016 11:00:32 Father Hypertensive disorder [email or web address] Not available 2016 16:04:44 Father Myocardial infarction [email or web address] Not available 11/25 16:05:22 Sister Hypertensive disorder [email or web address] Not available 2016 16:04:44 Sister Family history of malignant neoplasm [email or web address] Not available 2016 11:00:22 Mother Hypertensive disorder [email or web address] Not available 2016 16:04:44 Mother Myocardial infarction [email or web address] Not available 11/25 16:05:22 Medical History Condition Response Heart Problems Y Kidney Stones Y Blood Transfusion N Colon/Rectal Disorders Y Glaucoma N COPD N Depression N Diabetic Eye Disease N Anemia Y Heart Attack ([place]) Y Lazy Eye N Diabetes Y Anxiety Disorder N Bleeding Disorder N Hearing Loss Y Arthritis N Blood Clot N Eye Trauma N BPH Y Acid Reflux (GERD) Y Double Vision N Cancer N Age-related Macular Degeneration N Ocular trauma N RD/retinal tear N Stroke Y Asthma N Cataract N Blood Thinners Y Sleep Apnea N High Cholesterol Y Thyroid Disorder Y Liver Disease N Heart Disease Y Headaches Y Hypertension Y Glasses/Contacts N Immunizations Vaccine Type Date Status Note Provider Nam e and Address Organization Details Recorded Time Influenza, high-dose, quadrivalent, PF 0 [facility] 13:08:58 COVID-19, mRNA, LNP-S, PF, 100 mcg/0.5mL dose or 50 mcg/0.25mL dose 1 [facility] 13:08:58 COVID-19, mRNA, LNP-S, PF, 100 mcg/0.5mL dose or 50 mcg/0.25mL dose 1 [facility]24 13:08:59 COVID-19, mRNA, LNP-S, PF, 100 mcg/0.5mL dose or 50 mcg/0.25mL dose 2 [facility]24 13:08:59 COVID-19, mRNA, LNP-S, PF, 100 mcg/0.5mL dose or 50 mcg/0.25mL dose 1 [facility]24 13:08:59 Influenza, high-dose, trivalent, PF 9 [facility]24 13:08:59 pneumococcal polysaccharide PPV23 9 completed Not Available [facility] 11/19/2019 02:47:47 Influenza, adjuvanted, quadrivalent, PF 1 [facility]/08/2021 13:05:39 COVID-19, mRNA, LNP-S, bivalent, PF, 50 mcg/0.5 mL or 25mcg/0.25 mL dose 2 completed SUDHIR PAYTON PA-C [address] [place], [address], [facility] 08/14/2022 15:16:21 Influenza, adjuvanted, quadrivalent, PF 2 completed SUDHIR PAYTON PA-C [address] [place], [address], [facility] 08/14/2022 15:16:21 Pneumococcal conjugate PCV20, polysaccharide [id number] conjugate, adjuvant, PF 3 completed SUDHIR PAYTON PA-C [address] [place], [address], [facility] 02/18/2023 14:11:08 COVID-19, mRNA, LNP-S, PF, 100 mcg/0.5mL dose or 50 mcg/0.25mL dose 1 [facility] 13:08:59 COVID-19, mRNA, LNP-S, PF, 100 mcg/0.5mL dose or 50 mcg/0.25mL dose 1 [facility]24 13:08:59 Influenza, high-dose, quadrivalent, PF 3 completed [facility] 08/19/2023 15:27:51 COVID-19, mRNA, LNP-S, PF, 50 mcg/0.5 mL 3 [facility] 08/[facility]2023 15:27:51 Tdap 4 completed [facility] 03/21/2024 15:14:25 COVID-19, mRNA, LNP-S, PF, 100 mcg/0.5mL dose or 50 mcg/0.25mL dose 1 [facility]24 13:08:59 zoster recombinant 4 completed [facility] 03/21/2024 15:14:26 Influenza, high-dose, trivalent, PF 4 completed [facility] 09/23/2024 15:28:08 COVID-19, mRNA, LNP-S, PF, 50 mcg/0.5 mL 4 completed [facility] 09/23/2024 15:28:08 Pneumococcal conjugate PCV 13 8 completed Not Available [facility] 11/19/2019 02:45:50 zoster recombinant 5 completed [facility] 03/23/2025 14:39:11 Past Encounters Encounter ID Performer Location Encounter Start Date Encounter Closed Date Diagnosis/Indication Diagnosis SNOMED-CT Code Diagnosis ICD10 Code Diagnosis Note [id number] JASON PAREDES MD [facility] [address] [place] [address] 02/27/2025 10:42:27 02/28/2025 04:22:48 Degeneration of lumbar intervertebral disc 40454286 M51.369 Lumbar spondylosis 88935 0009 M47.816 [id number] SUDHIR PAYTON PA-C [facility] [address] [address] 03/23/2025 12:40:55 03/23/2025 14:07:10 Adult health examination 132858982 Z00.00 FSEs per dermatolog y. Screening for malignant neoplasm of colon 102888875 Z12.11 colonoscop y 05/19/24-no further indicated d/t age Screening for malignant neoplasm of prostate 629069982 Z12.5 PSA due Hepatitis C screening 41 5000399 Z11.59 Has patient ever had Hep C screening? YESneg screening 02/18/23 Abdominal aortic aneurysm screening 505166162 Z13.6 done 11/14/22-ao rta patent with no aneurysm or stenosis Nicotine dependence 5629 4008 Z87.891 smoking around 5 cigs she does daily. encouraged to work on cessation. screening n/a due to age. Active immunization 3387 9003 Z23 Has patient had Hep B vaccine? NO due for 2nd shingrix Eye disord er screening 656558860 Z13.5 Has patient ever had eye/glauco ma screening? YESDr. Kielar Depression screening 171 300430 Z13.31 PHQ-2 is zero Hypertensive disorder 38 865858 I10 BP stable. Kofi increased losartan to 100 mg daily. imdur and spironolac tone dosing cut in half per cardiology . has had an angioplast y for JANAK. Continue nebivolol, losartan, amlodipine , and spironolac tone as directed. uses clonidine prn only. EKGs per cardiology . continue active mgt per cardiology . Echo 03/12/2020 showed mild left ventricula r hypertroph y, but patient denies dyspnea on exertion, orthopnea, or lower extremity edema. He is followed by cardiology regularly. Hyperlipidemia 27960811 E78.5 LDL was 29 in september 2024. on gemfibrozi l and atorvastat in per cardiology . continue active mgt per cardiology . Recheck a lipid panel in 6 mos. Type 2 robert betes mellitus with peripheral angiopathy 107523690 E11.51 Fasting sugars are running in the 1 teens l ow 120s consistent ly. HbA1c was 6.5 in Sep. Recheck HbA1c. ekaterina goes to [facility]. Hypothyroidism 35424042 E03.9 TSH normal in sep. continue current dose of levothyrox ine. goes to his local pharmacy. History of transient ischemic attack 534941463 Z86.73 hx TIA. no neurologic symptoms. sees neurology. Had full work up in hospital. on plavix per cardiology . continue active mgt per cardiology and neurology. Coronary arteriosclerosis 88755380 I25.10 stable. History of multiple PCI's. Continue active mgt per cardiology , Esvin Mcnair PA-C on atorvastat in and gemfibrozi l. Gastroesop hageal reflux disease without esophagitis 662798235 K21.9 stable on nexium 20 mg daily. only occasional ly take pepcid prn. Peripheral vascular disease 410708793 I73.[address] Carrasco. improvemen t on ABIs in 2023. recheck ABIs and renal arteries per Dr. Carrasco in one year. continue active mgt per vascular surgery. Anemia 457964325 D64.[address] 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 Dr. Castillo has since treated 6 additional AVMs. Pt is currently not taking any oral iron. Iron level normal at 77 on 09/22/24, and CBC was stable. recheck cbc. Lower urin trang tract symptoms due to benign prostatic hypertrophy 3334037515 9101 N40.1 Now seeing urology, Dr. Morrison. Started on dutasterid e on 01/08/2024. Continue active management per urology. Vitamin D deficiency 347 55030 E55.9 vit D level normal in sep. pt taking vit D. Atheroscle rosis of aorta 59491346 I70.0 continue atorvastat in as directed, as well as BP control. 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 continue active mgt per neurology. Chronic bu llous emphysema 823210501 J43.9 mild bullous changes on chest CT seen on 08/08/21. encouraged smoking cessation. Vitamin B1 2 deficiency (non anemic) 72586447 E53.8 B12 level low normal on 09/22/24 with GI. Last few levels have been ok. GI stopped the B12. Chronic ki dney disease stage 3A 562173515 N18.31 GFR stable and in the low 50s consistent ly. Avoid nephrotoxi c agents. Stay well-hydra david. recheck metabolic panel. Lumbar spondylosis 52979 0009 M47.[address] Paredes. If he is not improving with these, radiofrequ ency ablation will be considered . Continue active management per pain management . [id number] JASON PAREDES MD [facility] [address] [facility], [facility] [address] [place] [address] 03/13/2025 14:48:05 03/15/2025 15:33:42 Lumbar spondylosis 574661861 M47.816 [id number] JASON PAREDES MD [facility] [employer] [address] [facility], [address] [place] [address] 03/28/2025 12:45:46 03/28/2025 15:33:00 Lumbar spondylosis 193091644 M47.816 Health Concerns Section Related Observation LastModified by Organization Detai ls LastModified Time None Recorded Concern Status LastModified by Organization Details LastModified Time None Recorded Payers Encounter Date Sequence Insurance Name Policy Number Policy Lambert Covered Member ID Lambert Member ID Guarantor Name 03/28/2025 1 [place] Scottie Bansal [id number] Scottie Bansal 03/28/2025 2 [employer] (MEDICARE SUPPLEMENT) Scottie Bansal [id number] Scottie Bansal
--- OUTSIDE RECORDS SUMMARY | 2025-03-31 13:06 | XMS_ITS | Continuity of Care Document ---
Author Organization [facility], PAIN MEDICINE [address] [place] [address] Care Team Providers Care Measurement Supervisor Name Role Phone MALGORZATA CLEMENT Robot Operator SUDHIR MOISE Primary Care Provider Assessment Encounter Date Assessment Date Assessment LastModified by Organization Details LastModified Time 02/27/2025 02/27/2025 This is an 79-year-old gentleman with left hip and groin pain. Previous history of C5-6 ACDF in 2019 and L5-S1 [place] [address] Wagner. He now has worsening low back pain. He is very active and walks about 1 mile every day. Pain is worse with lumbar extension. He has some soreness after activity. Some difficulty with extension in the morning. Some referral into the left buttock and anterior groin. Hip range of motion is adequate bilaterally. PMH:DM, TIA (Plavix), CKD 3, DM2, PVD, Smoker PSHx: 1. Flexion-extension x-ray lumbar spine 12/09/2024 demonstrates stable L5-S1 fusion with no instability. 2. MRI lumbar spine 01/11/2025 demonstrates moderate to severe left and moderate right L4-5 foraminal narrowing with severe left L5-S1 foraminal narrowing and previous L5-S1 fusion. 3. CT lumbar spine 01/11/2025 demonstrates no evidence of loosening. The above image findings were discussed with the patient. The patient has undergone no recent injection therapy. Patient has participated in a physician directed home exercise program for at least 6 weeks in the last 6 months Presentation is consistent with lumbar spondylosis. I recommend: 1. Bilateral L2-4 MBB with progression RFA if diagnostic 2. Home exercise plan given I had an in-depth discussion with the patient regarding the risks of the procedure including bleeding, infection, damage to surrounding structures, paralysis and even . We discussed the potential adverse effects of corticosteroid injection including flushing of the face, lipodystrophy, skin discoloration, elevated blood glucose, increased blood pressure. Risks of frequent steroid administration include weight gain, hormonal changes, mood changes, osteoporosis. External records were reviewed and discussed as above, including imaging, clinical notes, and relevant labs. [email or web address] Not available 02/27/2025 12:43:03 Plan of Treatment Reminders Order Date Submit Date Provider Last Modified By Organization Details Last Modified Time Details Appointments DERMATOL OGY VISIT 2024 01:30P M LEYDI HAMMOND [employer] SAL[employer] SPECIALIST Not available Not available Not available NEUROLOG Y RECHECK 2024 01:30P M EDMUND NATH PA-C Not available Not available Not available LEVEL 2 2024 10:45A M MALGORZATA CLEMENT MD Not available Not available Not available RECHECK 2024 01:00P M JYOTSNA LANDIN MD Not available Not available Not available RECHECK 2024 02:00P M SUDHIR MOISE PA-C Not available Not available Not available DERMATOL OGY VISIT 2025 01:30P M LEYDI HAMMOND [employer] SALES SPECIALIST Not available Not available Not available Lab None recorded . Referral None recorded . Procedures medial branch block, lumbar (PROC) 2024 025 [email or web address] [facility] Of Service Professional Charges, [address] [facility], [facility] [address], [place], [address], 03/02/2025 15:35:39 Surgeries None recorded . Imaging None recorded . Medication Orders None recorded . Patient TargetsNo targets recorded. Patient InstructionsNo instructions recorded. Reason for Referral None Reported. 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 321830358 Active 2015 From Automate d Load;Pro vider: Kamar Castillo;Sta tus: [facility] 4 13:46:29 Degenera tion of cervical interver tebral disc 27774109 Active 2017 [facility] 4 13:46:29 Tobacco user 993472978 Active 2017 [facility] 4 13:46:28 Squamous cell papillom a of eyelid 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 Active 2017 [facility] 4 13:46:28 After-ca taract of bilatera l eyes 24836429100 598274 Completed 201802/14/2021 MALGORZATA CLEMENT MD [address] [place] [address], [address], [facility] 1 10:40:05 Presbyop ia 77310291 Active 2018 MALGORZATA CLEMENT MD [address] [place] [address], [address], [facility] 4 11:05:39 Hypothyr oidism 37156306 Active 2019 [facility] 4 13:46:29 Acquired arteriov enous malforma tion 41280009836 08 Active 2019 noted on egd 07/21dr margarito Yamila Peters [facility] 4 13:46:29 Cerebrov ascular disease 66056808 Active 2019 [facility] 4 13:46:29 Antiplat elet agent therapy Active 2019 [facility]Fan [facility] 4 13:46:29 Coronary arterios clerosis 71737953 Active 2020 [facility] 3 14:11:37 Gastroes ophageal reflux disease without esophagi tis 461481137 Active 2021 [facility] 4 13:46:29 Anemia 009046209 Active 2021 [facility] 4 13:46:29 Secondar y cataract 054929608 Active 2021 MALGORZATA CLEMENT MD [address] [place] [address], [address], [facility] 4 11:05:39 History of transien t ischemic attack 733660857 Active 2021 Yamila Peters [facility] 4 13:46:28 Vitamin B12 deficien cy (non anemic) 69960195 Active 2021 [facility] 4 13:46:29 Atherosc lerosis of aorta 90071832 Active [address] scan 2 Yamila Peters [facility] 4 13:46:29 Vitamin D deficien cy 63974868 Active 2022 Yamila Peters [facility] 4 13:46:29 Nicotine dependen ce 28048958 Active 2022 SUDHIR MOISE PA-C [address] [place] [address], [address], [facility] 5 15:37:21 Posterio r vitreous detachme nt 625025273 Active 2022 MALGORZATA CLEMENT MD [address] [place] [address], [address], [facility] 4 11:05:39 Atypical facial pain 72799040 Active 2022 Yamila Peters [facility] 4 13:46:29 Chronic bullous emphysem a 687418049 Active 2022 Yamila Peters [facility] 4 13:46:28 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 251563850 Active 2022 [facility] 4 13:46:29 Gynecoma stia 4435197 Active 2022 Yamila Peters [facility] 4 13:46:29 Excess skin of eyelid 585422302 Active From Automate d Load;Pro vider: Malgorzata Clement;St atus: Active MALGORZATA CLEMENT MD [address] [place] [address], [address] [place] [address], [facility] 4 11:05:56 Chronic kidney disease stage 3A 516384111 Active SUDHIR MOISE PA-C [address] [place] [address], [address] [place] [address], [facility] 5 15:36:58 Excess skin of eyelid 011554040 Completed 201409/01/2018 From Automate d Load;Pro vider: Malgorzata Clement;St atus: Active MALGORZATA CLEMENT MD [address] [place] [address], [address] [place] [address], [facility] 4 11:05:56 Tear film insuffic iency 94559207 Completed 201409/02/2019 From Automate d Load;Pro vider: Malgorzata Clement;St atus: Active MALGORZATA CLEMENT MD [address] [place] [address], [address] [place] [address], [facility] 9 11:26:01 Allergic rhinitis 39043695 Active 2015 From Automate d Load;Pro vider: Duarte Meza III; Status: Active Yamila Peters [facility] 4 13:46:29 Non-alco holic fatty liver 162328323 Active 2015 From Automate d Load;Pro vider: Kamar Castillo;Sta tus: Active Yamila Peters [facility] 4 13:46:28 Hyperten sive disorder 55131341 Active 2015 nl ht cat 5 Yamila Peters [facility] 3 14:11:37 Chronic prostati tis 25955639 Active 2015 From Automate d Load;Pro vider: Alphonse Rowell;Gil serranous: Active Yamila Peters [facility] 4 13:46:28 Lower urinary tract symptoms due to benign prostati c hypertro phy 48879068497 101 Active 2015 From Automate d Load;Pro vider: Alphonse Rowell;Gil tatus: Active [facility] 4 13:46:29 Deviated nasal septum 954345262 Active 2015 From Automate d Load;Pro vider: Duarte Meza III; Status: Active Yamila Peters [facility] 13:46:28 Notes:: Depression Screening* Date:02/04/2016 Some problems listed in Document: #[id number] could not be added to this patient's chart. Please review this document and add these problems to the patient's chart manually as needed. Problem Notes Documentation Provider Name and Address Organization Details Recorded Time Pain Management Note : [address] [phone] (id #[id number], : 1945) [facility] PAIN MEDICINE [address] [place] [phone] Date: 02/27/2025RE: Scottie Bansal, : 1945, PT ID #[id number] Moise PA-C, I would like to thank you for referring Scottie Bansal to our practice for consultation and evaluation. I have enclosed a copy of the office evaluation for your records. Sincerely, Electronically Signed by: J[facility]ON G[facility]ALEZ [facility] Reason/Date low back pain Scottie Bansal is a 79 yo male referred by Leroy Wagner MD here today for ming low back pain that radiates down into left hip/lt groin. 02/27/2025 - 11:00AM - PAIN MEDICINE [address] [place] [address] History of Present IllnessPain Management L-spine GISHReported bypatient.Location:LBP; left hip pain; left groin pain Quality:aching;cramping Severity:current pain level 1-2/10; worst pain 5/10;worsening Duration:intermittent Onset/Timing:sudden; 4 months Context:cannot identify Alleviating Factors:nothing helps Aggravating Factors:getting out of bed; going from sit to stand; standing; walking Associated Symptoms:no weakness; no numbness; no bladder compromise; no bowel compromise Work Related:no ADL (Activities of Daily Living):do not improve with medication Driving Impairments with Medications:no Prior Imaging:CT scan (lumbar # [facility] 01/11/25); MRI (lumbar 01/11/25 @ [facility] per Vivien De La Garza APRN); XR lumbar 12/09/24 Prior EMG:none Previous Surgery:fusion (L5/S1 per Dr Leroy Wagner 12/29/2018) Previous Injections:none Previous PT:none Previous Recreation Activities Coordinator:noneReview of Systems Patient reportsback painbut reports no muscle aches, no muscle weakness, no arthralgias/joint pain, no swelling in the extremities, and no neck pain. He reports no fever, no night sweats, no significant weight gain, no significant weight loss, and no exercise intolerance. He reports no dry eyes, no vision change, and no irritation. He reports no difficulty hearing and no ear pain. He reports no frequent nosebleeds, no nose problems, and no sinus problems. He reports no sore throat, no bleeding gums, no snoring, no dry mouth, no mouth ulcers, no oral abnormalities, and no teeth problems. He reports no chest pain, no arm pain on exertion, no shortness of breath when walking, no shortness of breath when lying down, no palpitations, no known heart murmur, and no edema. He reports no cough, no wheezing, no shortness of breath, no coughing up blood, and no sleep apnea. He reports normal appetite, no abdominal pain, no nausea, no vomiting, not vomiting blood, no constipation, no diarrhea, no bright red blood per rectum, no dyspepsia, and no GERD. He reports no incontinence, no difficulty urinating, no hematuria, no increased frequency, no urinary urgency, no nocturia, normal urinary flowing, and no dysuria. He reports no abnormal mole, no jaundice, no rashes, and no laceration. He reports no loss of consciousness, no weakness, no numbness, no seizures, no dizziness, no migraines, no headaches, no tremor, and no tingling (paresthesia). He reports no depression, no sleep disturbances, feeling safe in a relationship, no alcohol abuse, no anxiety, no hallucinations, and no suicidal thoughts. He reports no fatigue. He reports no swollen glands, no bruising, and no excessive bleeding. He reports no runny nose, no sinus pressure, no itching, no hives, and no frequent sneezing. Physical ExamConstitutional:General Appearance: healthy-appearing, NAD, and normal body habitus. Psychiatric:Orientation: oriented to time, place, and person. Mood and Affect: normal mood and affect and active and alert. Gait and Station:Appearance: normal gait, no limp, and ambulating with no assistive devices. Cardiovascular System:Edema Right: none. Edema Left: none. Skin:Lumbosacral Spine: normal skin. Lumbar Spine:Inspection: no induration, ecchymosis, or swelling and normal alignment. Bony Palpation of the Lumbar Spine: no tenderness of the spinous process;Lower lumbar facet tenderness bilaterally. Active Range of Motion:extension (___ deg.)andpain with motionand flexion normal. Motor Strength:L1 Motor Strength on the Right: hip flexion iliopsoas 5/5. L1 Motor Strength on the Left: hip flexion iliopsoas 5/5. L2-L4 Motor Strength on the Right: knee extension quadriceps 5/5. L2-L4 Motor Strength on the Left: knee extension quadriceps 5/5. L5 Motor Strength on the Right: ankle dorsiflexion tibialis anterior 5/5. L5 Motor Strength on the Left: ankle dorsiflexion tibialis anterior 5/5. S1 Motor Strength on the Right: plantar flexion gastrocnemius 5/5. S1 Motor Strength on the Left: plantar flexion gastrocnemius 5/5. Neurological System:Knee Reflex Right: normal (2). Knee Reflex Left: normal (2). Sensation on the Right: L4 normal, L5 normal, and S1 normal. Sensation on the Left: L4 normal, L5 normal, and S1 normal.Procedure DocumentationNone recordedAsschi st. [facility] is an 79-year-old gentleman with left hip and groin pain. Previous history of C5-6 ACDF in 2019 and L5-S1 [place] [address] Wagner. He now has worsening low back pain. He is very active and walks about 1 mile every day. Pain is worse with lumbar extension. He has some soreness after activity. Some difficulty with extension in the morning. Some referral into the left buttock and anterior groin. Hip range of motion is adequate bilaterally.PMH:DM, TIA (Plavix), CKD 3, DM2, PVD, SmokerPSHx: 1. Flexion-extension x-ray lumbar spine 12/09/2024 demonstrates stable L5-S1 fusion with no instability.2. MRI lumbar spine 01/11/2025 demonstrates moderate to severe left and moderate right L4-5 foraminal narrowing with severe left L5-S1 foraminal narrowing and previous L5-S1 fusion.3. CT lumbar spine 01/11/2025 demonstrates no evidence of loosening.The above image findings were discussed with the patient. The patient has undergone no recent injection therapy. Patient has participated in a physician directed home exercise program for at least 6 weeks in the last 6 months Presentation is consistent with lumbar spondylosis. I recommend:1. Bilateral L2-4 MBB with progression RFA if diagnostic2. Home exercise plan given I had an in-depth discussion with the patient regarding the risks of the procedure including bleeding, infection, damage to surrounding structures, paralysis and even . We discussed the potential adverse effects of corticosteroid injection including flushing of the face, lipodystrophy, skin discoloration, elevated blood glucose, increased blood pressure. Risks of frequent steroid administration include weight gain, hormonal changes, mood changes, osteoporosis. External records were reviewed and discussed as above, including imaging, clinical notes, and relevant labs. 1. Lumbar [id number]: Spondylosis without myelopathy or radiculopathy, lumbar region MEDIAL BRANCH BLOCK, LUMBAR (PROC) Performing Provider: [facility] service[facility] Procedure code: 39632, 50140 Authorization: Medicare-[place] (Medicare[place] [address], [address]Cyalbwzkbvtmk: [facility] [place] (Medicare Supplement) [place] [address], [address] 2. Degeneration of lumbar intervertebral discM51.369: Other intervertebral disc degeneration, lumbar region without mention of lumbar back pain or lower extremity pain Return to Office SUDHIR MOISE PA-C for MEDICARE WELLNESS VISIT at [facility] on 03/23/2025 at 01:30 PM LEYDI HAMMOND APRN for DERMATOLOGY VISIT at [facility] on 06/06/2025 at 01:30 PM EDMUND NATH PA-C for NEUROLOGY RECHECK at NEUROLOGY [address] [place] [address] on 06/14/2025 at 01:30 PM MALGORZATA CLEMENT MD for LEVEL 2 at [facility] on 06/15/2025 at 10:45 AM JYOTSNA LANDIN MD for RECHECK at [facility] on 09/07/2025 at 01:00 PM LEYDI HAMMOND APRN for DERMATOLOGY VISIT at [facility] on 12/07/2025 at 01:30 PM SUDHIR MOISE PA-C [address] [place], [address], [facility] 02/27/2025 13:03:58 Procedures Surgical History Date Name Laterality Status Provider Name and Address Organization Details Recorded Time 025 Lumbar MBB bilateral 2 level - Reggie completed JASON GONZALEZ MD [address] [place], [address], [facility] 03/28/2025 13:22:42 025 Lumbar MBB bilateral 2 level - Reggie completed JASON GONZALEZ MD [address] [place], [address], [facility] 03/13/2025 16:12:13 025 Destruction Premalignant Lesion(s) completed Radha Swartz [facility] 12/06/2024 13:58:39 024 Destruction Premalignant Lesion(s) completed Rachel Wilkins [facility] 12/02/2023 14:18:49 023 Destruction Premalignant Lesion(s) completed Bonny Ortiz [facility] 05/26/2023 12:31:24 023 Destruction MN Lesion; trunk, arm, leg completed Alicia Tabares [facility] 02/23/2023 16:02:18 023 Biopsy Skin Lesion; Tangential completed LEYDI HAMMOND APRN [address] [place], [address], [facility] 02/17/2023 11:45:48 023 Destruction Premalignant Lesion(s) completed [facility] 02/17/2023 10:51:42 023 Ophthalmoscopy, Ext Retinal completed TAYA ALEXANDRA MD [address] [place], [address], [facility] 12/04/2022 14:15:48 022 EKG completed KOFI MANRIQUEZ PA-C [address] [place], [address], [facility] 09/22/2022 15:55:27 022 Destruction MN Lesion; trunk, arm, leg completed [facility] 09/17/2022 07:34:15 022 Biopsy Skin Lesion; Tangential completed [facility] 09/10/2022 14:04:49 022 Destruction Premalignant Lesion(s) completed [facility] 09/10/2022 14:04:56 022 EKG completed KOFI MANRIQUEZ PA-C [address] [place], [address], [facility] 03/25/2022 15:11:37 022 Stress Test - Nuclear Lexiscan completed ROBBIN CANO MD [address] [place], [address], [facility] 12/04/2021 14:51:30 022 EKG completed KOFI MANRIQUEZ PA-C [address] [place], [address], [facility] 11/06/2021 11:26:36 021 Post Void Residual; Ultrasound completed Sofiya Conner [facility] 07/22/2021 10:51:02 021 Electromyography (EMG) with Nerve Conduction Study (NCV) completed Anh Roe) Yasmine [facility] 04/10/2021 13:07:07 021 EKG [place], [address], [facility] 03/06/2021 14:14:04 020 EKG [place], [address], [facility] 10/12/2020 12:34:02 020 Post Void Residual; Ultrasound completed Silva Wright [facility] 06/07/2020 13:22:54 020 EKG completed BARBARA [place]T [place], [address], [facility] 04/10/2020 16:06:08 020 Cardiac Catheterization completed Sharonda Singer [facility] 04/10/2020 15:13:22 020 EKG completed NILAM PENA MD [address] [place], [address], [facility] 03/07/2020 10:28:06 020 ANTERIOR CERVICAL DISCECTOMY AND FUSION, LEVEL SPECIFIED, WITH HARDWARE (SURG) completed Rowena Monsalve [facility] 01/20/2020 10:24:10 019 Echocardiogram completed NILAM PENA MD [address] [place], [address], [facility] 06/21/2019 12:22:25 019 Diabetic Foot Exam completed BLANCA LUQUE PA-C [address] [place], [address], [facility] 06/08/2019 16:52:11 019 Interpretation completed BRIAN BUSTILLO PA-C [address] [place], [address], [facility] 04/25/2019 11:30:21 019 Post Void Residual; Ultrasound completed Kaci [facility] 04/07/2019 10:36:56 019 EKG completed KOFI MANRIQUEZ PA-C [address] [place], [address], [facility] 02/03/2019 13:21:00 019 Post Void Residual; Ultrasound completed Kaci [facility] 01/27/2019 13:40:17 019 TRANSFORAMINAL INTERBODY LUMBAR FUSION, LEVEL SPECIFIED, WITH HARDWARE (SURG) completed Nae Sterling [facility] 01/03/2019 08:44:54 019 Post Void Residual; Ultrasound completed Kaci [facility] 12/21/2018 13:34:52 019 EKG completed KOFI MANRIQUEZ PA-C [address] [place], [address], [facility] 12/13/2018 12:11:56 019 Electromyography (EMG) with Nerve Conduction Study (NCV) completed Anh Underwood (Camille) [facility] 11/08/2018 08:59:12 018 VAS - Art Dup - Lower Extremity completed NILAM PENA MD [address] [place], [address], [facility] 09/14/2018 15:50:46 018 EKG completed KOFI MANRIQUEZ PA-C [address] [place], [address], [facility] 08/03/2018 13:38:43 018 Injection Joint/Bursa, Major [place], [address], [facility] 07/23/2018 16:00:53 018 Injection Joint/Bursa, Major [place], [address], [facility] 06/29/2018 14:52:16 018 Electromyography (EMG) with Nerve Conduction Study (NCV) completed Anh Underwood (Camille) [facility] 05/17/2018 10:51:39 018 Cardiac Catheterization completed Tiarra Brown [facility] 05/21/2018 14:39:13 018 Post Void Residual; Ultrasound completed Ginger Gallegos [facility] 04/06/2018 10:50:44 018 VAS - Art Dup - Lower Extremity completed DEZ BOO MD [address] [place] [employer] [place], [address], [facility] 03/31/2018 16:22:18 018 Diabetic Foot Exam completed BLANCA LUQUE PA-C [address] [place], [address], [facility] 02/23/2018 23:34:30 018 VAS - Carotid Duplex completed NILAM PENA MD [address] [place], [address], [facility] 02/17/2018 12:03:58 018 EKG completed WILMER ARNDTC [address] [place], [address], [facility] 02/03/2018 13:58:15 017 EKG completed BARBARA [place], [address], [facility] 08/05/2017 14:27:37 017 EKG completed BARBARA [place], [address], [facility] 05/25/2017 12:44:35 017 Post Void Residual; Ultrasound completed Alicia Peña [facility] 03/19/2017 13:27:57 017 EKG completed WILMER ARNDTC [place], [address], [facility] 01/26/2017 11:47:44 017 CATHETER PLACEMENT FOR CORONARY ANGIOGRAPHY WITH LEFT HEART CATHETERIZATION INCLUDING INTRAPROCEDURAL INJECTION(S) FOR LEFT VENTRICULOGRAPHY WHEN PERFORMED (SURG) completed Maday Helmburg [facility] 11/24/2016 07:31:58 016 Blepharoplasty completed Loree Arriazapin [facility] 10/24/2016 10:00:43 015 Cataract (right) removal with iol completed [facility] 08/28/2017 11:01:15 015 Cataract (left) removal with iol completed [facility] 08/28/2017 11:01:05 Other completed BEV ALEXANDRA JR, MD [facility] [place], [address], [facility] 04/06/2018 18:18:31 Cholecystectomy w/cholang completed [facility] 08/28/2017 11:01:25 Imaging Results None recorded. Procedure [...] completed changed at ( was taking Crestor) Jef at recent visit- rx was written for [...] Not Available Not Available No t Available Pansey 7.5 mg-325 mg tablet Take 1 tablet [...] as needed by oral route. 02/27 completed ND: 0904-588 0-61 Not Available Not Available Not [...] given to pt -2 boxes 02/03/19. lot# [id number] exp 02/19 Not Available Not Available Not Available Align (B.infant is) 02/27 completed not taking (12/15/19) Not [...] Relief 50 mcg/actua tion nasal spray,[place] pension [place] 2 sprays every day by intranas al route for 30 days. 09/05 completed Not Available Not Available Not Available Vitamin B12 as directed 06/17 completed Not Available Not Available Not Available Vitals Date Recorded Body height Body mass index (BMI) Body weight Body temperature Heart rate Oxygen saturation Oxygen saturation in Arterial blood by Pulse oximetry Systolic blood pressure Diastolic blood pressure Provider Name and Address Organization Details Last Updated DateTime 5 175.26 cm 25.4 kg/m2 48248.2 9 g 97.2 [degF] 55 /min 96 % 96 % 132 mm[Hg] 64 mm[Hg] Arianna De La Rosa [facility] 5 11:57:41 Social History Question Answer Notes LastModified by Organizat ion Details LastModified Time Tobacco Smoking Status Current Every Day Smoker Loree gasca, [facility] 10/24/2016 10:00:13 How Much Tobacco Do You Chew? None Information not available 11/10/2018 Live Alone Or With Others? With Others Information not available 05/25/2017 Marital Status Joan [email or web address] Informatio n not available 06/13/2020 What Was The Date Of Your Most Recent Tobacco Screening? 02/27/2025 [email or web address] Information not available 02/27/2025 How Many Children Do You Have? 0 [email or web address] Information not available 09/23/2021 What Is Your Relationship Status? [email or web address] Information not available 09/23/2021 How Much Tobacco Do You Smoke? 0.25 PPD [email or web address] Information not available 06/11/2020 Has Tobacco Cessation Counseling Been Provided? Yes Information not available 08/31/2017 On What Date Was Tobacco Cessation Counseling Provided? 01/08/2024 [email or web address] Information not available 01/08/2024 How Many Years Have You Smoked Tobacco? 50 Information not available 05/25/2017 Have You Recently Traveled Abroad? No [email or web address] Information not available 09/23/2021 Sex: Unknown Functional Status Question Answer Note LastModified by Organizat ion Details LastModified Time What is your level of alcohol consumption? Occasional social Diseniasunni Information not available 02/23/2018 Do you or have you ever used smokeless tobacco? 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 Never used electronic cigarettes [email or web address] Information not available 06/08/2019 Mental Status None recorded. Family History Relationship Description Onset Age of this Age Resolved Age Notes LastModified by Organization Details LastModified Time Brother Cataract [email or web address] Not availab le 11/25/2016 16:04:10 Brother Hypertensive disorder [email or web address] Not available 2016 16:04:44 Brother Myocardial infarction [email or web address] Not available 11/25 16:05:22 Brother Family history of stroke [email or web address] Not available 2016 11:00:32 Father Hypertensive disorder [email or web address] Not available 2016 16:04:44 Father Myocardial infarction [email or web address] Not available 11/25 16:05:22 Sister Hypertensive disorder Not available 2016 16:04:44 Sister Family history of malignant neoplasm [email or web address] Not available 2016 11:00:22 Mother Hypertensive disorder [email or web address] Not available 2016 16:04:44 Mother Myocardial infarction Not available 11/25 16:05:22 Medical History Condition Response Heart Problems Y Kidney Stones Y Blood Transfusion N Colon/Rectal Disorders Y Depression N COPD N Glaucoma N Diabetic Eye Disease N Anemia Y Heart Attack ([place]) Y Lazy Eye N Anxiety Disorder N Diabetes Y Bleeding Disorder N Arthritis N Hearing Loss Y Eye Trauma N Blood Clot N Acid Reflux (GERD) Y BPH Y Double Vision N Cancer N Age-related Macular Degeneration N RD/retinal tear N Ocular trauma N Stroke Y Asthma N Cataract N Blood Thinners Y Sleep Apnea N Thyroid Disorder Y High Cholesterol Y Liver Disease N Heart Disease Y Headaches Y Hypertension Y Glasses/Contacts N Immunizations Vaccine Type Date Status Note Provider Nam e and Address Organization Details Recorded Time Influenza, high-dose, quadrivalent, PF 0 completed Roopa Kranhti [facility] 09/23/2024 13:08:58 COVID-19, mRNA, LNP-S, PF, 100 mcg/0.5mL dose or 50 mcg/0.25mL dose 1 completed [facility] 09/23/2024 13:08:58 COVID-19, mRNA, LNP-S, PF, 100 mcg/0.5mL dose or 50 mcg/0.25mL dose 1 completed Roopa [facility] 09/23/2024 13:08:59 COVID-19, mRNA, LNP-S, PF, 100 mcg/0.5mL dose or 50 mcg/0.25mL dose 2 completed Roopa [facility] 09/23/2024 13:08:59 COVID-19, mRNA, LNP-S, PF, 100 mcg/0.5mL dose or 50 mcg/0.25mL dose 1 completed [facility] 09/23/2024 13:08:59 Influenza, high-dose, trivalent, PF 9 completed [facility] 09/23/2024 13:08:59 pneumococcal polysaccharide PPV23 9 completed Not Available [facility] 11/19/2019 02:47:47 Influenza, adjuvanted, quadrivalent, PF 1 completed Roopa Crisostomo [facility] 08/08/2021 13:05:39 COVID-19, mRNA, LNP-S, bivalent, PF, 50 mcg/0.5 mL or 25mcg/0.25 mL dose 2 completed SUDHIR MOISE PA-C [address] [place] [address], [id number], [facility] 08/14/2022 15:16:21 Influenza, adjuvanted, quadrivalent, PF 2 completed SUDHIR MOISE PA-C [address] [place], [id number], [facility] 08/14/2022 15:16:21 Pneumococcal conjugate PCV20, polysaccharide [id number] conjugate, adjuvant, PF 3 completed SUDHIR MOISE PA-C [address] [place], [address], [facility] 02/18/2023 14:11:08 COVID-19, mRNA, LNP-S, PF, 100 mcg/0.5mL dose or 50 mcg/0.25mL dose 1 [facility] 13:08:59 COVID-19, mRNA, LNP-S, PF, 100 mcg/0.5mL dose or 50 mcg/0.25mL dose 1 [facility] 13:08:59 Influenza, high-dose, quadrivalent, PF 3 completed [facility] 15:27:51 COVID-19, mRNA, LNP-S, PF, 50 mcg/0.5 mL 3 completed [facility] 08/[facility]23 15:27:51 Tdap 4 completed Roopa Crisostomo [facility] 03/21/2024 15:14:25 COVID-19, mRNA, LNP-S, PF, 100 mcg/0.5mL dose or 50 mcg/0.25mL dose 1 completed [facility] 09/23/2024 13:08:59 zoster recombinant 4 completed [facility] 03/21/2024 15:14:26 Influenza, high-dose, trivalent, PF 4 completed [facility] 09/[facility] 15:28:08 COVID-19, mRNA, LNP-S, PF, 50 mcg/0.5 mL 4 completed [facility] 15:28:08 Pneumococcal conjugate PCV 13 8 completed Not Available [facility] 11/19/[facility] 02:45:50 zoster recombinant 5 completed Roopa Crisostomo [facility] 03/23/2025 14:39:11 Past Encounters Encounter ID Performer Location Encounter Start Date Encounter Closed Date Diagnosis/Indication Diagnosis SNOMED-CT Code Diagnosis ICD10 Code Diagnosis Note [id number] JASON GONZALEZ MD PAIN MEDICINE [facility] [place] [address] 02/27/2025 10:42:27 02/28/2025 04:22:48 Degeneration of lumbar intervertebral disc 67145436 M51.369 Lumbar spondylosis 62426 0009 M47.816 Health Concerns Section Related Observation LastModified by Organization Detai ls LastModified Time None Recorded Concern Status LastModified by Organization Details LastModified Time None Recorded Payers Encounter Date Sequence Insurance Name Policy Number Policy Lambert Covered Member ID Lambert Member ID Guarantor Name 02/27/2025 1 [place] Scottie Bansal [id number] Scottie Bansal 02/27/2025 2 [employer] (MEDICARE SUPPLEMENT) Scottie Bansal [id number] Scottie Bansal Notes Date Note Type Note Provider Name and Address Organization Details Recorded Time 02/27/2025 text/html Pain Management L-spine GISHReported bypatient.Location :LBP; left hip pain; left groin pain Quality:aching;aircraft structural repairer mping Severity:current pain level 1-2/10; worst pain 5/10;worsening Duration:intermitt ent Onset/Timing:sudde n; 4 months Context:cannot identify Alleviating Factors:nothing helps Aggravating Factors:getting out of bed; going from sit to stand; standing; walking Associated Symptoms:no weakness; no numbness; no bladder compromise; no bowel compromise Work Related:no ADL (Activities of Daily Living):do not improve with medication Driving Impairments with Medications:no Prior Imaging:CT scan (lumbar # [facility] 01/11/25); MRI (lumbar 01/11/25 @ [facility] per Vivien De La Garza APRN); XR lumbar 12/09/24 Prior EMG:none Previous Surgery:fusion (L5/S1 per Dr Leroy Wagner 12/29/2018) Previous Injections:none Previous PT:none Previous Recreation Activities Coordinator:[place] [address] [place] [address], [id number], [facility] 02/27/2025 12:43:51
[2025-03-31 14:19] LABS: Basophils % 0.4 % (0.1-2.0); Eosinophils # 0.6 Kmm3 (0.0-0.4); Eosinophils % 5.5 % (0.1-12.0); Hematocrit 34.7 % (42.0-52.0); Hemoglobin 11.6 g/dL (14.1-18.0); Immature Granulocytes # 0.05 10^3uL; Immature Granulocytes % 0.5 %; Lymphocytes # 2.7 K/mm3 (0.7-4.5); Lymphocytes % 26.8 % (10-50); Mean Corpuscular HGB Conc 33.4 g/dL (31.8-35.4); Mean Corpuscular Hemoglobin 29.9 pg (27.0-31.2); Mean Corpuscular Volume 89.4 fl (80-94); Mean Platelet Volume 9.9 fl (7.4-10.4); Monocytes # 1.4 K/mm3 (0.1-1.0); Monocytes % 14.2 % (1.7-9.3); Neutrophils # 5.3 K/mm3 (1.8-7.8); Neutrophils % 52.6 % (37.0-80.0); Nucleated Red Blood Cells # 0 10^3/uL; Nucleated Red Blood Cells % 0 %; Platelet Count 373 K/mm3 (142-424); Red Blood Count 3.88 M/mm3 (4.60-6.20); Red Cell Distribution Width 13.8 % (11.5-17.5); Red Cell Distribution Width-SD 44.9 fL
[2025-03-31 14:35] LABS: Iron 96 ug/dL (49-181)
[2025-03-31 14:44] LABS: Total Iron Binding Capacity 408 ug/dL (261-462)
[2025-03-31 14:58] LABS: 25-OH Vitamin D, Total 43.1 ng/mL (30-100)
[2025-03-31 15:11] LABS: Ferritin 20.4 ng/ml (17.9-464)
[2025-03-31 15:57] LABS: Vitamin B12 216 pg/mL (239-931)
== END 2025-03-31 23:59 | disposition home or self-care (01) ==
LOC: LAB 13:04
PROVIDERS: Visit Provider Nurse Practitioner Family
DX: D50.9 Iron deficiency anemia, unspecified (principal); E55.9 Vitamin D deficiency, unspecified; E53.8 Deficiency of other specified B group vitamins
CPT/HCPCS: 36415; 82306; 82607; 82728; 83540; 83550; 85025

== ENCOUNTER 2025-09-21 10:16 | Outpatient (CLI) | payer MEDICARE, OTHER, SELFPAY ==
[2025-09-21 10:49] LABS: Hematocrit 34.3 % (42.0-52.0); Hemoglobin 11.2 g/dL (14.1-18.0); Immature Granulocytes % 0.5 %; Mean Corpuscular HGB Conc 32.7 g/dL (31.8-35.4); Mean Corpuscular Hemoglobin 29.6 pg (27.0-31.2); Mean Corpuscular Volume 90.7 fl (80-94); Nucleated Red Blood Cells % 0 %; Platelet Count 314 K/mm3 (142-424); Red Blood Count 3.78 M/mm3 (4.60-6.20); Red Cell Distribution Width-SD 45.7 fL; White Blood Count 11.2 K/mm3 (4.8-10.8)
[2025-09-21 11:13] LABS: Iron 82 ug/dL (49-181)
[2025-09-21 11:23] LABS: Total Iron Binding Capacity 421 ug/dL (261-462)
[2025-09-21 11:34] LABS: 25-OH Vitamin D, Total 43.8 ng/mL (30-100)
[2025-09-21 11:49] LABS: Ferritin 13.8 ng/ml (17.9-464)
[2025-09-21 12:03] LABS: Vitamin B12 305 pg/mL (239-931)
== END 2025-09-21 23:59 | disposition home or self-care (01) ==
PROVIDERS: Visit Provider Nurse Practitioner Family
DX: D50.9 Iron deficiency anemia, unspecified (principal); E55.9 Vitamin D deficiency, unspecified; E53.8 Deficiency of other specified B group vitamins
CPT/HCPCS: 36415; 82306; 82607; 82728; 83540; 83550; 85025